=== PATIENT | male | born 1960 ===

== ENCOUNTER → 2020-02-06 14:00 | Outpatient (BNVA) | payer SELFPAY | PROVIDERS: PCP Internal Medicine; Visit Provider Internal Medicine Endocrinology, Diabetes & Metabolism | DX: E11.21 Type 2 diabetes mellitus with diabetic nephropathy (principal); E11.40 Type 2 diabetes mellitus with diabetic neuropathy, unspecified; Z79.4 Long term (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 of insulin; E66.01 Morbid (severe) obesity due to excess calories; E78.5 Hyperlipidemia, unspecified; E21.1 Secondary hyperparathyroidism, not elsewhere classified; I10 Essential (primary) hypertension | CPT/HCPCS: 82947; 99212 ==

== ENCOUNTER 2020-07-04 14:48 | Emergency (ER) | payer OTHER, SELFPAY ==
[2020-07-04] VITALS (7 sets, daily range): BP systolic 91–130; BP diastolic 42–58; PULSE 79–86; RESP 14–20; TEMP 36.3–37.6; O2SAT 94–98; BMI 41.8
--- NOTE | 2020-07-04 | ECG_ITS ---
Test Reason : WEAKNESS Blood Pressure : / mmHG Vent. Rate : 082 BPM Atrial Rate : 082 BPM P-R Int : 150 ms QRS Dur : 138 ms QT Int : 440 ms P-R-T Axes : 017 221 056 degrees QTc Int : 514 ms Atrial-sensed ventricular-paced rhythm Abnormal ECG No previous ECGs available Referred By: Dedrick Yañez Electronically Signed By:KUSH HARRIS MD
--- NOTE | ~2020-07-04 | XR_ITS ---
EXAMINATION: XR CHEST CLINICAL INFORMATION: Cough, shortness of breath COMPARISON: None TECHNIQUE: Frontal view of the chest was obtained. FINDINGS: The lungs are hypoinflated. No focal consolidation, pulmonary edema, or pleural effusion. The cardiac silhouette is mildly enlarged. There is a left chest wall cardiac pacer with leads projecting over the right atrium and right ventricle. XR/XR chest 1V IMPRESSION: Hypoinflation with no acute cardiopulmonary findings.
[2020-07-04 15:28] LABS: Glucose, Whole Blood 536 mg/dL (60-115)
--- NOTE | 2020-07-04 16:52 | ED.GENADULT ---
HPI - General Adult General Chief complaint: General Medical Stated complaint: WEAKNESS Time Seen by Provider: 07/04/20 16:52 Source: patient Mode of arrival: ambulatory Limitations: no limitations History of Present Illness HPI narrative: Patient's history of nonischemic cardiomyopathy with ejection fraction 15-20% atrial flutter CKD stage 3 ,morbid obesity, COPD nonalcoholic cirrhosis diabetes obstructive sleep apnea , hypertension was at [facility] for almost a month from 06/18 until patient left AMA. Comes here for weakness not feeling good increased shortness of breath no chest pain. Related Data Home Medications Medication Instructions Recorded Confirmed aspirin 81 mg chewable tablet 1 tab PO DAILY 02/06/20 07/04/20 gabapentin 600 mg tablet 600 mg PO TID 02/06/20 07/04/20 isosorbide mononitrate 30 mg 30 mg PO DAILY 02/06/20 02/06/20 tablet,extended release 24 hr losartan 50 mg tablet 50 mg PO DAILY 02/06/20 07/04/20 metoprolol succinate 25 mg 25 mg PO DAILY 02/06/20 07/04/20 tablet,extended release 24 hr omeprazole 20 mg capsule,delayed 20 mg PO DAILY 02/06/20 07/04/20 release torsemide 20 mg tablet 20 mg PO 02/06/20 02/06/20 digoxin 125 mcg PO DAILY 07/04/20 07/04/20 rivaroxaban [Xarelto] 20 mg PO BEDTIME 07/04/20 07/04/20 Previous Rx's Medication Instructions Recorded calcium carbonate 600 mg calcium 600 mg PO BID 30 Days #60 tab 02/06/20 (1,500 mg) tablet cholecalciferol (vitamin D3) 125 125 mcg PO DAILY 30 Days #30 cap 02/06/20 mcg (5,000 unit) capsule insulin regular hum U-500 conc 500 See Rx Instructions SUBCUT .Twice 02/06/20 unit/mL subcutaneous soln a day 30 Days #20 ml atorvastatin 80 mg tablet 80 mg PO BEDTIME 30 Days #30 tab 04/05/20 Allergies Allergy/AdvReac Type Severity Reaction Status Date / Time lisinopril AdvReac Unknown cough Verified 11/10/19 00:00 Review of Systems Review of Systems: Constitutional : No Weight loss, No Fever, No Chills ENT/Mouth : No sore throat, No Rhinorrhea Eyes: No Eye Pain, No Swelling Cardiovascular : No Chest Pain, no palpitations Respiratory : No Cough, No Sputum, no shortness of breath Gastrointestinal : no Nausea, No Vomiting, No Diarrhea, No abdominal Pain, no black stools Genitourinary : No Dysuria, No Urinary Frequency Musculoskeletal : No joint pain, No Myalgias, No Joint Swelling Skin : No Skin Lesions, No rash Neuro : + Weakness, No Numbness, No Dizziness, No Headache Psych : No Anxiety/Panic, No Depression Heme/Lymph: No Bruising, No Lymphadenopathy Endocrine : No Polyuria, No Polydipsia All other systems reviewed and are negative [facility] Past Medical History Medical History Chronic diastolic heart failure Cirrhosis Diabetes mellitus Diabetes type 2, uncontrolled Diabetic nephropathy associated with type 2 diabetes mellitus Diabetic neuropathy associated with type 2 diabetes mellitus Dyslipidemia HTN (hypertension) 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 due 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 Morbid obesity Nonischemic cardiomyopathy JANELL (obstructive sleep apnea) Substance abuse Surgical History S/P cardiac cath (~11/2019) Social History Social History Alcohol intake: never Smoking Status: Never smoker Smoked in Last 30 Days: No Use of substances other than those prescribed or required for medical reasons: No Advance Directives: No Advance Directives Information Provided: Yes Physical Exam Vital Signs: Vital Signs: Last Vital Signs Temp 98.6 F 07/04/20 21:54 Pulse 80 07/04/20 21:54 Resp 20 07/04/20 21:54 BP 114/51 L 07/04/20 22:00 Pulse Ox 95 07/04/20 21:54 Body Mass Index 41.8 Appearance: Alert. Oriented X3. No acute distress. Eyes: PERRLA, No Nystagmus, icterus+ ENT: Pharynx normal. Oral Mucosa moist Neck: Normal inspection. Neck supple. CVS: Normal heart rate and rhythm. Pulses normal. Respiratory: No respiratory distress. Equal air entry bilateral, no wheezing/rales/rhonchi Abdomen: Soft and nontender. Bowel sounds are present, no mass palpable, no CVA tenderness Skin: Skin warm and dry. Normal skin color. Normal skin turgor. Extremities: 2+ lower extremity edema. No calf tenderness, no hepatic flap Neuro: Oriented X 3. No motor deficit. No sensory deficit.No cerebellar signs , cranial nerves II-XII intact Medical Decision Making MDM Narrative Medical decision making narrative: Patient with multiple comorbid conditions took 135 units of Humalog prior to arrival blood sugar dropped to 50s started on dextrose drip. Patient unable take care of himself feel weak and lethargic. Otherwise patient has stable labs. No medical reason to admit at this time. Case discussed with case management plan to place him in rehab Medical Records Medical records reviewed: Yes I reviewed the patient's medical records. Medical records narrative: Medical records from [facility] were reviewed. Patient was admitted there on 06/18 until 07/02 for increased shortness of breath diagnosis CHF exacerbation treated with Lasix drip patient was on Xarelto had retroperitoneal hemorrhage received Kcentra FFP and 1 unit of PRBC patient also had the ablation of AV node on 06/28 with CONTACT ACID PLANT OPERATOR D placement at the day patient left AMA patient was receiving metoprolol succinate 100 mg daily Bumex 1 mg daily prednisone 20 mg daily and blood sugar was controlled with Lantus 30 units twice daily with sliding scale Lab Data Lab results reviewed: Yes I reviewed the patient's lab results. Result diagrams: 07/04/20 18:24 07/04/20 18:24 Labs: Lab Results 07/04/20 07/04/20 07/04/20 Range/Units 15:09 18:24 18:24 WBC 8.6 (4.8-10.8) X10*3/uL RBC 3.47 L (4.60-5.80) X10*6/uL Hgb 9.8 L (14.0-18.0) g/dl Hct 33.1 L (42-52) % MCV 95.4 (80-98) fL MCH 28.2 (27.0-33.0) pg MCHC 29.6 L (31.0-36.0) g/dl RDW 19.1 H (11.0-16.0) % Plt Count 123 L (160-400) X10*3/uL MPV 11.5 (9.4-12.4) fL Immature Gran % (Auto) 1.3 H (0.0-0.4) % Neut % (Auto) 75.4 H (45-73) % Lymph % (Auto) 9.5 L (20-40) % Shelby % (Auto) 11.7 H (2-11) % Eos % (Auto) 2.1 (0-4) % Baso % (Auto) 0.0 (0-2) % Lymph # (Auto) 0.8 L (1.2-4.9) X10*3/uL Shelby # (Auto) 1.0 (0.1-1.2) X10*3/uL Eos # (Auto) 0.2 (0.0-0.4) X10*3/uL Baso # (Auto) 0.0 (0.0-0.2) X10*3/uL Abs Immat Gran (auto) 0.11 H (0.00-0.03) X10*3/uL Absolute Neuts (auto) 6.5 (2.0-8.3) X10*3/uL Absolute Nucleated RBC 0.000 (0.0-0.012) X10*3/uL Nucleated RBC % (auto) 0.0 (0.0-0.2) /100WBC PT 14.6 H (10.8-13.0) SEC INR 1.2 H (0.9-1.1) APTT 27.5 (24.1-38.0) SEC VBG pH (7.32-7.43) VBG pCO2 mmHg VBG pO2 mmHg VBG HCO3 (22-26) mmol/L VBG O2 Saturation % VBG Base Excess mmol/L Sodium (135-145) mmol/L Potassium (3.3-5.1) mmol/L Chloride (96-108) mmol/L Carbon Dioxide (22-29) mmol/L Anion Gap (12-20) BUN (9-16) mg/dL Creatinine (0.5-1.4) mg/dL Estim Creat Clear Calc Estimated GFR POC Glucose 536 H* (60-115) mg/dL Random Glucose (60-115) mg/dL Calcium (8.4-10.2) mg/dL Total Bilirubin (0.0-1.0) mg/dL Direct Bilirubin (0.0-0.5) mg/dL AST (5-37) U/L ALT (0-40) U/L Alkaline Phosphatase (39-117) U/L Ammonia (13-55) umol/L Total Protein (6.5-8.0) g/dL Albumin (3.5-5.0) g/dL Lipase (8-78) U/L 07/04/20 07/04/20 07/04/20 Range/Units 18:24 18:24 18:31 WBC (4.8-10.8) X10*3/uL RBC (4.60-5.80) X10*6/uL Hgb (14.0-18.0) g/dl Hct (42-52) % MCV (80-98) fL MCH (27.0-33.0) pg MCHC (31.0-36.0) g/dl RDW (11.0-16.0) % Plt Count (160-400) X10*3/uL MPV (9.4-12.4) fL Immature Gran % (Auto) (0.0-0.4) % Neut % (Auto) (45-73) % Lymph % (Auto) (20-40) % Shelby % (Auto) (2-11) % Eos % (Auto) (0-4) % Baso % (Auto) (0-2) % Lymph # (Auto) (1.2-4.9) X10*3/uL Shelby # (Auto) (0.1-1.2) X10*3/uL Eos # (Auto) (0.0-0.4) X10*3/uL Baso # (Auto) (0.0-0.2) X10*3/uL Abs Immat Gran (auto) (0.00-0.03) X10*3/uL Absolute Neuts (auto) (2.0-8.3) X10*3/uL Absolute Nucleated RBC (0.0-0.012) X10*3/uL Nucleated RBC % (auto) (0.0-0.2) /100WBC PT (10.8-13.0) SEC INR (0.9-1.1) APTT (24.1-38.0) SEC VBG pH 7.46 H (7.32-7.43) VBG pCO2 50 mmHg VBG pO2 47 mmHg VBG HCO3 36 H (22-26) mmol/L VBG O2 Saturation 76.0 % VBG Base Excess 11.2 mmol/L Sodium 147 H (135-145) mmol/L Potassium 3.4 (3.3-5.1) mmol/L Chloride 105 (96-108) mmol/L Carbon Dioxide 33 H (22-29) mmol/L Anion Gap 12 (12-20) BUN 19 H (9-16) mg/dL Creatinine 1.06 (0.5-1.4) mg/dL Estim Creat Clear Calc 101.8 Estimated GFR > 60 POC Glucose (60-115) mg/dL Random Glucose 240 H (60-115) mg/dL Calcium 8.1 L (8.4-10.2) mg/dL Total Bilirubin 1.7 H (0.0-1.0) mg/dL Direct Bilirubin 0.8 H (0.0-0.5) mg/dL AST 25 (5-37) U/L ALT 30 (0-40) U/L Alkaline Phosphatase 115 (39-117) U/L Ammonia 36 (13-55) umol/L Total Protein 6.1 L (6.5-8.0) g/dL Albumin 3.1 L (3.5-5.0) g/dL Lipase 24 (8-78) U/L 07/04/20 07/04/20 07/04/20 Range/Units 19:05 19:12 21:52 WBC (4.8-10.8) X10*3/uL RBC (4.60-5.80) X10*6/uL Hgb (14.0-18.0) g/dl Hct (42-52) % MCV (80-98) fL MCH (27.0-33.0) pg MCHC (31.0-36.0) g/dl RDW (11.0-16.0) % Plt Count (160-400) X10*3/uL MPV (9.4-12.4) fL Immature Gran % (Auto) (0.0-0.4) % Neut % (Auto) (45-73) % Lymph % (Auto) (20-40) % Shelby % (Auto) (2-11) % Eos % (Auto) (0-4) % Baso % (Auto) (0-2) % Lymph # (Auto) (1.2-4.9) X10*3/uL Shelby # (Auto) (0.1-1.2) X10*3/uL Eos # (Auto) (0.0-0.4) X10*3/uL Baso # (Auto) (0.0-0.2) X10*3/uL Abs Immat Gran (auto) (0.00-0.03) X10*3/uL Absolute Neuts (auto) (2.0-8.3) X10*3/uL Absolute Nucleated RBC (0.0-0.012) X10*3/uL Nucleated RBC % (auto) (0.0-0.2) /100WBC PT (10.8-13.0) SEC INR (0.9-1.1) APTT (24.1-38.0) SEC VBG pH (7.32-7.43) VBG pCO2 mmHg VBG pO2 mmHg VBG HCO3 (22-26) mmol/L VBG O2 Saturation % VBG Base Excess mmol/L Sodium (135-145) mmol/L Potassium (3.3-5.1) mmol/L Chloride (96-108) mmol/L Carbon Dioxide (22-29) mmol/L Anion Gap (12-20) BUN (9-16) mg/dL Creatinine (0.5-1.4) mg/dL Estim Creat Clear Calc Estimated GFR POC Glucose 181 H 126 H 54 L* (60-115) mg/dL Random Glucose (60-115) mg/dL Calcium (8.4-10.2) mg/dL Total Bilirubin (0.0-1.0) mg/dL Direct Bilirubin (0.0-0.5) mg/dL AST (5-37) U/L ALT (0-40) U/L Alkaline Phosphatase (39-117) U/L Ammonia (13-55) umol/L Total Protein (6.5-8.0) g/dL Albumin (3.5-5.0) g/dL Lipase (8-78) U/L 07/04/20 Range/Units 23:57 WBC (4.8-10.8) X10*3/uL RBC (4.60-5.80) X10*6/uL Hgb (14.0-18.0) g/dl Hct (42-52) % MCV (80-98) fL MCH (27.0-33.0) pg MCHC (31.0-36.0) g/dl RDW (11.0-16.0) % Plt Count (160-400) X10*3/uL MPV (9.4-12.4) fL Immature Gran % (Auto) (0.0-0.4) % Neut % (Auto) (45-73) % Lymph % (Auto) (20-40) % Shelby % (Auto) (2-11) % Eos % (Auto) (0-4) % Baso % (Auto) (0-2) % Lymph # (Auto) (1.2-4.9) X10*3/uL Shelby # (Auto) (0.1-1.2) X10*3/uL Eos # (Auto) (0.0-0.4) X10*3/uL Baso # (Auto) (0.0-0.2) X10*3/uL Abs Immat Gran (auto) (0.00-0.03) X10*3/uL Absolute Neuts (auto) (2.0-8.3) X10*3/uL Absolute Nucleated RBC (0.0-0.012) X10*3/uL Nucleated RBC % (auto) (0.0-0.2) /100WBC PT (10.8-13.0) SEC INR (0.9-1.1) APTT (24.1-38.0) SEC VBG pH (7.32-7.43) VBG pCO2 mmHg VBG pO2 mmHg VBG HCO3 (22-26) mmol/L VBG O2 Saturation % VBG Base Excess mmol/L Sodium (135-145) mmol/L Potassium (3.3-5.1) mmol/L Chloride (96-108) mmol/L Carbon Dioxide (22-29) mmol/L Anion Gap (12-20) BUN (9-16) mg/dL Creatinine (0.5-1.4) mg/dL Estim Creat Clear Calc Estimated GFR POC Glucose 100 (60-115) mg/dL Random Glucose (60-115) mg/dL Calcium (8.4-10.2) mg/dL Total Bilirubin (0.0-1.0) mg/dL Direct Bilirubin (0.0-0.5) mg/dL AST (5-37) U/L ALT (0-40) U/L Alkaline Phosphatase (39-117) U/L Ammonia (13-55) umol/L Total Protein (6.5-8.0) g/dL Albumin (3.5-5.0) g/dL Lipase (8-78) U/L Discharge Plan Discharge Clinical Impression: Weakness Congestive heart failure (CHF) Qualifiers: Heart failure type: combined systolic and diastolic Heart failure chronicity: chronic Qualified Code(s): I50.42 - Chronic combined systolic (congestive) and diastolic (congestive) heart failure Diabetes type 2, uncontrolled Qualifiers: Glycemic state: with hyperglycemia Qualified Code(s): E11.65 - Type 2 diabetes mellitus with hyperglycemia Prescriptions: No Action atorvastatin 80 mg tablet 80 mg PO BEDTIME 30 Days Qty: 30 RF: 6 digoxin 125 mcg (0.125 mg) tablet 125 mcg PO DAILY RF: 0 Xarelto 20 mg tablet 20 mg PO BEDTIME RF: 0 gabapentin 600 mg tablet 600 mg PO TID RF: 0 isosorbide mononitrate 30 mg tablet extended release 24 hr 30 mg PO DAILY RF: 0 losartan 50 mg tablet 50 mg PO DAILY RF: 0 torsemide 20 mg tablet 20 mg PO RF: 0 aspirin 81 mg tablet,chewable 1 tab PO DAILY RF: 0 omeprazole 20 mg capsule,delayed release(DR/EC) 20 mg PO DAILY RF: 0 metoprolol succinate 25 mg tablet extended release 24 hr 25 mg PO DAILY RF: 0 calcium carbonate 600 mg calcium (1,500 mg) tablet 600 mg PO BID 30 Days Qty: 60 RF: 4 cholecalciferol (vitamin D3) 125 mcg (5,000 unit) capsule 125 mcg PO DAILY 30 Days Qty: 30 RF: 6 insulin regular hum U-500 conc 500 unit/mL solution See Rx Instructions subcut .Twice a day 30 Days Qty: 20 RF: 5
[2020-07-04 18:33] LABS: MANUAL DIFF FLAG NO
[2020-07-04 18:36] LABS: Eosinophils Absolute Auto 0.2 X10*3/uL (0.0-0.4); Eosinophils Percent Auto 2.1 % (0-4); Hematocrit 33.1 % (42-52); Hemoglobin 9.8 g/dl (14.0-18.0); Imm Gran Abs Auto 0.11 X10*3/uL (0.00-0.03); Imm Gran Pct Auto 1.3 % (0.0-0.4); Lymphocytes Absolute Auto 0.8 X10*3/uL (1.2-4.9); Lymphocytes Percent Auto 9.5 % (20-40); Mean Corpuscular HGB Conc 29.6 g/dl (31.0-36.0); Mean Corpuscular Hemoglobin 28.2 pg (27.0-33.0); Mean Corpuscular Volume 95.4 fL (80-98); Mean Platelet Volume 11.5 fL (9.4-12.4); Monocytes Percent Auto 11.7 % (2-11); Neutrophils Absolute Auto 6.5 X10*3/uL (2.0-8.3); Neutrophils Percent Auto 75.4 % (45-73); Platelet Count 123 X10*3/uL (160-400); Red Blood Count 3.47 X10*6/uL (4.60-5.80); Red Cell Distribution Width 19.1 % (11.0-16.0); White Blood Count 8.6 X10*3/uL (4.8-10.8)
[2020-07-04 18:39] LABS: VBG Base Excess 11.2 mmol/L; VBG HCO3 36 mmol/L (22-26); VBG pCO2 50 mmHg; VBG pH 7.46 (7.32-7.43); VBG pO2 47 mmHg
[2020-07-04 18:42] LABS: Venous Blood Gas Refer to POC result
[2020-07-04 18:43] LABS: INTERNATIONAL NORM RATIO 1.2 (0.9-1.1); Prothrombin Time 14.6 SEC (10.8-13.0)
[2020-07-04 18:45] LABS: Partial Thromboplastin Time 27.5 SEC (24.1-38.0)
[2020-07-04 18:52] LABS: Ammonia 36 umol/L (13-55)
[2020-07-04 19:03] LABS: Alanine Aminotransferase 30 U/L (0-40); Albumin Level 3.1 g/dL (3.5-5.0); Alkaline Phosphatase 115 U/L (39-117); Anion Gap 12 (12-20); Aspartate Amino Transferase 25 U/L (5-37); Bilirubin Direct 0.8 mg/dL (0.0-0.5); Bilirubin Total 1.7 mg/dL (0.0-1.0); Blood Urea Nitrogen 19 mg/dL (9-16); Calcium 8.1 mg/dL (8.4-10.2); Carbon Dioxide 33 mmol/L (22-29); Chloride 105 mmol/L (96-108); Creatinine Clr Calc Pharmacy 101.8; Estimated Glomerular Filt Rate > 60; Glucose Random 240 mg/dL (60-115); Lipase 24 U/L (8-78); Potassium 3.4 mmol/L (3.3-5.1); Sodium 147 mmol/L (135-145); Total Protein 6.1 g/dL (6.5-8.0)
[2020-07-04 19:08] LABS: Glucose, Whole Blood 181 mg/dL (60-115)
[2020-07-04 19:16] LABS: Glucose, Whole Blood 126 mg/dL (60-115)
[2020-07-04] MEDS: 0.9 % Sodium Chloride 1,000 ML 999 ML IVCONT (20:33)
[2020-07-04 21:55] LABS: Glucose, Whole Blood 54 mg/dL (60-115)
--- NOTE | 2020-07-04 22:02 | PC.NURSE ---
PT BGL 54, PT GIVEN ORANGE JUICE WITH SUGAR ADDED, SILVINA KEKE, AND AILEEN CRACKERS
[2020-07-04] MEDS: Dextrose 5 % and 0.45 % NaCl 1,000 ML 100 ML IVCONT (22:14)
[2020-07-04] MEDS: oxyCODONE HCl Immed Release 5 MG TABLET 10 MG PO (22:15)
--- NOTE | 2020-07-04 22:22 | MHC.CM.ED ---
Addendum entered by Sejal Gilliland 07/04/20 22:53: Referrals to follow broadcasted in allscripts pending PT recommendations. Original Note: CM met with pt at request of Dr. Yañez, who stated pt was at [facility] for 3 weeks and left AMA. CM met with pt. Pt was hospitalized at [facility] from 06/18-07/02. Multiple medical problems including CHF, COPD exacerbation, retroperitoneal hemorrhage which required transfusion and A-flutter with RVR with ablation. Pt had PT assessment and inpatient STR was recommended. Pt states he was treated very poorly and was disrespected by several staff. Pt has a HX of past substance use disorder and lives in a sober house. Pt left AMA. Pt is weak and sl SOB with cough. Pt is medically cleared. Pt desires STR. CM spoke with Wire Bound Box Machine Helper Flora Acevedo regarding how to proceed. Per Flora, PT evaluation will be ordered secondary to weakness. If recommended, will refer to STR. MD aware. Ordered PT evaluation. Pt agreeable. Pt is aware he made a bad decision and should have gone to rehab from [facility]. Referrals broadcasted. CM to follow for d/c needs.
--- NOTE | 2020-07-04 23:59 | PC.NURSE ---
REPORT TAKEN FROM ASTER RN, PT RESTING IN BED A&0x4, SKIN PWD RESPIRATIONS EVEN UNLABORED. POC 100. D5 INFUSION CONTINUES, AWARE. WILL RECHECK POC IN 30MINUTES. 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 WILL CONTINUE TO MONITOR. PT CONSULT ORDERED FOR AM.
[2020-07-05] VITALS (7 sets, daily range): BP systolic 94–148; BP diastolic 44–78; PULSE 60–90; RESP 16–20; TEMP 36.6–37.2; O2SAT 96–97
[2020-07-05 00:01] LABS: Glucose, Whole Blood 100 mg/dL (60-115)
[2020-07-05 01:54] LABS: Glucose, Whole Blood 68 mg/dL (60-115)
[2020-07-05 03:03] LABS: Glucose, Whole Blood 55 mg/dL (60-115)
[2020-07-05] MEDS: Dextrose 5 % and 0.45 % NaCl 1,000 ML 100 ML IVCONT (05:05)
--- NOTE | 2020-07-05 05:08 | PC.NURSE ---
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 Patients most recent POC was 68 and patient has been receiving D5 1/2NS to help correct his POC's as well as having received some snacks as well. Per report this patient has been awaiting PT and will see them in the morning due to the fact that the patient has stated to staff that he cannot walk . Approximately 15 minutes ago at 0455, this RN went in to observe the patient and check vital signs/hang fluids/and assess pain status- upon arrival to the room the patient was observed ambulating independently within the room, steady gait with no assistance.
[2020-07-05 05:18] LABS: Glucose, Whole Blood 59 mg/dL (60-115)
--- NOTE | 2020-07-05 05:33 | PC.NURSE ---
Pt POC 59, orange juice, gingerale and crackers given
[2020-07-05 06:19] LABS: Glucose, Whole Blood 78 mg/dL (60-115)
--- NOTE | 2020-07-05 06:36 | PC.NURSE ---
Patients POC rechecked and it was 78- fluids still running, darryle at bedside
[2020-07-05] MEDS: oxyCODONE HCl Immed Release 5 MG TABLET 10 MG PO (07:27)
[2020-07-05] MEDS: Omeprazole 20 MG CAPSULE.DR PO (07:27)
[2020-07-05 08:50] LABS: Glucose, Whole Blood 90 mg/dL (60-115)
--- NOTE | 2020-07-05 08:52 | MHC.CM.ED ---
Patient remains in ER. Clinical updates sent to all facilities still following patient. Continue to monitor for d/c needs.
[2020-07-05] MEDS: Cholecalciferol (Vitamin D3) 25 MCG TABLET 125 MCG PO (09:18)
[2020-07-05] MEDS: Aspirin 81 MG TAB.CHEW PO (09:18)
[2020-07-05] MEDS: Gabapentin 600 MG TABLET PO ×2 (09:19→15:17)
[2020-07-05] MEDS: Losartan Potassium 50 MG TABLET PO (09:19)
[2020-07-05] MEDS: Bumetanide 1 MG TABLET PO (09:19)
[2020-07-05] MEDS: Metoprolol Succinate ER 100 MG TAB.ER.24H PO (09:19)
--- NOTE | 2020-07-05 11:33 | PC.NURSE ---
REC'D REPORT FROM VICTOR HUGO ESTRADA, INTRODUCED SELF TO PT. PT SLEEPING UPON ENTRY, ORIENTED X3, RESP EVEN, LABOURED AT BASELINE. ATE 100% OF BREAKFAST. POC 165. C/O ONLY OF CHRONIC BILAT FOOT PAIN. AWARE OF PLAN FOR CARE.
[2020-07-05 11:34] LABS: Glucose, Whole Blood 165 mg/dL (60-115)
--- NOTE | 2020-07-05 12:07 | MHC.CM.ED ---
Multiple facilities are following patient. Discussed facility options with patient. [facility]io[facility]. [facility]ica is in the process of obtaining insurance auth. Continue to monitor for d/c needs.
[2020-07-05] MEDS: Insulin Lispro 100 UNIT/ML 3 ML VIAL SUBCUT ×2 (13:11→17:11)
[2020-07-05 13:19] LABS: Glucose, Whole Blood 168 mg/dL (60-115)
[2020-07-05 13:50] LABS: Amphetamine Screen Urine Not Detected (Not Detect); Barbiturates, Urine Not Detected (Not Detect); Benzodiazepines Screen Urine Not Detected (Not Detect); Cannabinoid Screen Urine Not Detected (Not Detect); Cocaine Screen Urine Not Detected (Not Detect); Opiate Screen Urine Not Detected (Not Detect); Phencyclidine Screen Urine Not Detected (Not Detect)
--- NOTE | 2020-07-05 16:01 | MHC.CM.ED ---
Insurance auth has been obtained by [facility]. [facility] BLS booked. Med nec with chart. Patient, Cori ESTRADA and Jessie CABALLERO aware. Continue to monitor for d/c needs.
[2020-07-05 17:07] LABS: Glucose, Whole Blood 287 mg/dL (60-115)
== END 2020-07-05 18:17 | disposition skilled nursing facility (03) ==
PROVIDERS: Physician Assistant Medical; Emergency Provider Internal Medicine; PCP Internal Medicine
DX: E11.22 Type 2 diabetes mellitus with diabetic chronic kidney disease (principal); E11.65 Type 2 diabetes mellitus with hyperglycemia; I13.0 Hypertensive heart and chronic kidney disease with heart failure and stage 1 through stage 4 chronic kidney disease, or unspecified chronic kidney disease; N18.30 Chronic kidney disease, stage 3 unspecified; I50.42 Chronic combined systolic (congestive) and diastolic (congestive) heart failure; K74.60 Unspecified cirrhosis of liver; F19.10 Other psychoactive substance abuse, uncomplicated; E78.5 Hyperlipidemia, unspecified; Z79.4 Long term (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 of insulin; Z79.02 Long term (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 of antithrombotics/antiplatelets
CPT/HCPCS: 36415; 71045; 80048; 80076; 80307; 82140; 82947; 83690; 85025; 85610; 85730; 93005; 96361; 96365; 96366; 97162; 99285

== ENCOUNTER → 2020-08-10 09:36 | Outpatient (BNVA) | payer OTHER, SELFPAY | PROVIDERS: PCP Internal Medicine; Referring Provider Internal Medicine; Visit Provider Internal Medicine Endocrinology, Diabetes & Metabolism | DX: E11.65 Type 2 diabetes mellitus with hyperglycemia (principal); E11.21 Type 2 diabetes mellitus with diabetic nephropathy; E11.40 Type 2 diabetes mellitus with diabetic neuropathy, unspecified; E66.01 Morbid (severe) obesity due to excess calories; E78.5 Hyperlipidemia, unspecified; I10 Essential (primary) hypertension; E21.1 Secondary hyperparathyroidism, not elsewhere classified | CPT/HCPCS: 82947; 99212 ==

== ENCOUNTER → 2020-09-03 10:43 | Outpatient (BNVA) | payer OTHER, SELFPAY | PROVIDERS: PCP Internal Medicine; Referring Provider Internal Medicine; Visit Provider Internal Medicine Cardiovascular Disease ==

== ENCOUNTER 2020-09-03 11:50 | Inpatient (IN) | payer OTHER, SELFPAY ==
--- NOTE | ~2020-09-03 | CT_ITS ---
EXAMINATION: CT ANGIOGRAM OF THE CHEST WITH AND WITHOUT CONTRAST (CT PULMONARY ANGIOGRAM FOR PE) CLINICAL INFORMATION: Reason for Exam hypoxia COMPARISON: None TECHNIQUE: Prior to contrast administration, noncontrast localization images were obtained. Subsequently, multidetector volumetric imaging was performed from the thoracic inlet to below the diaphragms following the administration of 75 mL Omnipaque 350 intravenous contrast. No contrast reaction reported Sagittal, coronal, and MIP oblique sagittal reformatted images were obtained on the CT workstation, uploaded to PACS, and reviewed. This CT examination was performed using dose optimization techniques as appropriate, variously including the following: *Automated exposure control *Adjustment of mA and/or kV according to patient size (this includes techniques or standardized protocols for targeted exams where dose is matched to indication/reason for exam; i.e. extremities or head) *Use of iterative reconstruction technique Total exam dose-length product 530.85 mGy-cm FINDINGS: QUALITY OF STUDY/CONTRAST BOLUS: Satisfactory. PULMONARY ARTERIES: No central or segmental pulmonary emboli. THORACIC AORTA: No aneurysm or dissection. Atherosclerotic disease of the aorta including coronary arterial calcifications are present. Triple lead AICD device is seen. LUNG: Multilobar subtle patchy groundglass airspace disease is present bilaterally, may represent subtle interstitial edema, inflammatory or infectious process. PLEURA: No pleural effusion or pneumothorax. MEDIASTINUM: Normal heart size. No pericardial effusion. No hilar or mediastinal lymphadenopathy. No evidence of septal bowing or right heart strain. CHEST WALL/AXILLA: No axillary or internal mammary lymphadenopathy. OSSEOUS STRUCTURES: No acute or suspicious osseous abnormality. UPPER ABDOMEN: Unremarkable. No reflux of contrast into the hepatic veins to suggest elevated right heart pressures. CT/CT angio chest PE protocol IMPRESSION: 1. No CT evidence of pulmonary embolism is present. 2. Subtle multilobar patchy groundglass airspace disease is present bilaterally, may represent subtle edema versus infectious, inflammatory process. VTE: Negative.
--- NOTE | ~2020-09-03 | XR_ITS ---
EXAMINATION: XR CHEST CLINICAL INFORMATION: Chest pain/SOB COMPARISON: Chest 07/04/2020 TECHNIQUE: 1 view of the chest was obtained. FINDINGS: The lungs are expanded and clear of acute pneumonic process heart size and pulmonary vascularity are within normal limits. There are pacer electrodes in right atrium and right ventricle. No gross bony abnormality seen. XR/XR chest 1V IMPRESSION: Unremarkable chest exam. No change from 06/26/2020
[2020-09-03 11:58] VITALS: BP 173/76; PULSE 102; RESP 20; TEMP 36.7; O2SAT 91; BMI 46.0
--- NOTE | 2020-09-03 12:03 | ECG_ITS ---
Test Reason : CHEST PAIN Blood Pressure : / mmHG Vent. Rate : 102 BPM Atrial Rate : 102 BPM P-R Int : 134 ms QRS Dur : 142 ms QT Int : 426 ms P-R-T Axes : 048 224 047 degrees QTc Int : 555 ms Atrial-sensed ventricular-paced rhythm Abnormal ECG When compared with ECG of 04-JUL-2020 15:16, Vent. rate has increased BY 20 BPM Referred By: Generic ED Physician Electronically Signed By:KUSH HARRIS MD
--- NOTE | 2020-09-03 12:14 | P.CONCA_ITS ---
History of Present Illness History of Present Illness Date of Service: 09/03/20 Chief complaint: edema sob chest pain Narrative: 60-year-old gentleman who has background Joann nonischemic cardiomyopathy in the setting of cocaine use. He had significant premature ventricle complexes in the past for which she was on amiodarone. His LVEF improved after taking care of the PVCs. He was doing fine until recently when he developed shortness of breath and atrial flutter. He was in [facility] at that time and this is around May 2020. he was significantly volume overloaded and was diuresed. After this he was transferred to [facility] where he was in the CCU. Echocardiography at [facility] done May 2020 showed EF of 15-20% with severe global hypokinesis. Mildly dilated left atrium. It appears he was discharged home on torsemide 20 mg twice a day and Toprol XL 200 mg daily. He was also started on Coumadin for atrial flutter. There also some note about serosal liver any was referred to gastroenterology. He is presenting after May to us and has not followed up after that admission. In the interim he also had a pacemaker placed at [facility] which I do not have records of. He has significant shortness of breath and volume overload. Lower extremity edema as well as abdominal distension. He is also complaining of atypical left-sided chest pains. He was taking torsemide as needed. He was taking Bumex daily but despite using the apple packing header history is very limited. He is saying he is quite short of breath and seems significantly volume overloaded with right more than left heart failure. [facility] Past Medical History Medical History Chronic diastolic heart failure Cirrhosis Diabetes mellitus Diabetes type 2, uncontrolled Diabetic nephropathy associated with type 2 diabetes mellitus Diabetic neuropathy associated with type 2 diabetes mellitus Dyslipidemia HTN (hypertension) 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 due to vitamin D deficiency senior living (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 of insulin Morbid obesity Nonischemic cardiomyopathy JANELL (obstructive sleep apnea) Substance abuse Surgical History Surgical History S/P cardiac cath (~11/2019) Social History Social History (Updated 09/03/20 @ 11:18 by MAMTA Guevara) Alcohol intake: never Patient Tobacco Use Status: Former Tobacco user Quit Date: 2002 Years Smoked: 40 Advance Directives Date on File: 07/05/20 Meds Allergies Allergy/AdvReac Type Severity Reaction Status Date / Time lisinopril AdvReac Intermediate cough Verified 09/03/20 11:58 Home Medications Medication Instructions Recorded Confirmed Last Taken Type aspirin 81 mg chewable tablet 1 tab PO DAILY 02/06/20 08/10/20 Unknown History gabapentin 600 mg tablet 600 mg PO TID 02/06/20 08/10/20 Unknown History isosorbide mononitrate 30 mg 30 mg PO DAILY 02/06/20 08/10/20 Unknown History tablet,extended release 24 hr alcohol swabs 1 pad TOPICAL TID 08/10/20 08/10/20 Unknown History losartan 25 mg tablet 50 mg PO DAILY tab 08/10/20 08/10/20 Unknown History albuterol sulfate 90 mcg/actuation 2 puff INHALATION Q4-6H PRN 08/31/20 Unknown History aerosol inhaler bumetanide 1 mg tablet 1 mg PO DAILY 08/31/20 Unknown History fluticasone furoate 100 1 inh INHALATION DAILY 08/31/20 Unknown History mcg-vilanterol 25 mcg/dose inhalation powder metoprolol succinate 100 mg 100 mg PO DAILY 08/31/20 Unknown History tablet,extended release 24 hr tiotropium bromide 18 mcg capsule 1 cap INHALATION DAILY 08/31/20 Unknown History with inhalation device torsemide 20 mg tablet 20 mg PO DAILY tab 09/03/20 Unknown History Physical Exam 2 Vital Signs: Vital Signs: Last Vital Signs Temp 98.0 F 09/03/20 11:58 Pulse 102 H 09/03/20 11:58 Resp 20 09/03/20 11:58 BP 173/76 H 09/03/20 11:58 Pulse Ox 91 L 09/03/20 11:58 Body Mass Index 46.0 GENERAL APPEARANCE: Short of breath, abdominal distension. NECK: no carotid bruit, + jugular venous distention. SKIN: no suspicious lesions, warm and dry. HEART: no murmurs, regular rate and rhythm. tachycardic LUNGS: clear to auscultation bilaterally. ABDOMEN: soft, distended, tense EXTREMITIES: 2+ edema. PERIPHERAL PULSES: equal. NEUROLOGIC: No gross deficits, AAO X 3 Assessment and Plan (1) Congestive heart failure (CHF): Qualifiers: Heart failure type: other Qualified Code(s): I50.9 - Heart failure, unspecified Status: Acute 60-year-old gentleman presenting for shortness of breath and congestive heart failure. He has significant volume overloaded with right more than left heart failure right now. We are sending him to emergency department to be admitted. Stop the Bumex and torsemide 20. give him 80 mg IV Lasix and start him on Lasix drip 10 milligram/hour. Monitor electrolytes closely. Decrease his Toprol-XL dose to 50 mg once a day. We will get records from [facility] about his pacemaker placement. I do not know the exact reason for that. He had significantly dropped ejection fraction when he was admitted at [facility] but he had atrial flutter at that time and I do not know whether that was a tachycardia induced cardiomyopathy or not. In any case right now he has sinus tachycardia on EKG. We will follow along with you. Thank you for allowing me to participate in the care of your patient. Please feel free to contact me if you have any questions. Procedures Date of Service Date of Service: 09/03/20
[2020-09-03 13:57] LABS: MANUAL DIFF FLAG NO
[2020-09-03 14:01] LABS: Basophils Percent Auto 0.4 % (0-2); Eosinophils Absolute Auto 0.2 X10*3/uL (0.0-0.4); Eosinophils Percent Auto 2.8 % (0-4); Hematocrit 42.2 % (42-52); Hemoglobin 12.8 g/dl (14.0-18.0); Imm Gran Abs Auto 0.03 X10*3/uL (0.00-0.03); Imm Gran Pct Auto 0.4 % (0.0-0.4); Lymphocytes Percent Auto 12.5 % (20-40); Mean Corpuscular HGB Conc 30.3 g/dl (31.0-36.0); Mean Corpuscular Hemoglobin 27.5 pg (27.0-33.0); Mean Corpuscular Volume 90.6 fL (80-98); Monocytes Absolute Auto 0.8 X10*3/uL (0.1-1.2); Monocytes Percent Auto 9.9 % (2-11); Neutrophils Absolute Auto 5.9 X10*3/uL (2.0-8.3); Platelet Count 207 X10*3/uL (160-400); Red Blood Count 4.66 X10*6/uL (4.60-5.80); Red Cell Distribution Width 16.3 % (11.0-16.0); White Blood Count 7.9 X10*3/uL (4.8-10.8)
[2020-09-03 14:19] LABS: Anion Gap 11 (12-20); Blood Urea Nitrogen 24 mg/dL (9-16); Calcium 8.3 mg/dL (8.4-10.2); Carbon Dioxide 28 mmol/L (22-29); Chloride 104 mmol/L (96-108); Creatinine Clr Calc Pharmacy 98.1; Estimated Glomerular Filt Rate > 60; Glucose Random 303 mg/dL (60-115); Sodium 139 mmol/L (135-145)
[2020-09-03 14:26] LABS: B Type Natriuretic Peptide 433 pg/mL (<100); Troponin-I High Sensitivity 27.1 ng/L (<3.5-35.0)
[2020-09-03 16:00] VITALS: BP 123/72; PULSE 94; RESP 18; TEMP 36.9; O2SAT 98
--- NOTE | 2020-09-03 16:17 | ED.CHESTPAIN ---
HPI - Chest Pain General Chief Complaint: Chest Pain Stated Complaint: edema sob chest pain Time Seen by Provider: 09/03/20 16:17 Source: patient Mode of arrival: ambulatory Limitations: no limitations History of Present Illness HPI narrative: patient is 60 years old male with history of diabetes, sleep apnea,nonischemic cardiomyopathy in the setting of cocaine use recently developed shortness of breath with atrial flutter in 05/2020 echocardiogram showed ejection fraction of 15-20% severe global hypokinesis on torsemide 20 mg twice daily and Toprol-XL 200 mg daily and Coumadin for atrial flutter also has pacemaker placed complaining of increased shortness of breath with increased leg edema and abdominal distention feels very short of breath even on mild exertion. Patient was seen by relief charge nurse today and advised to go to the ER for admission patient also complaining of pain in left chest around the site where the pacemaker was placed for last 2 days Related Data Home Medications Medication Instructions Recorded Confirmed aspirin 81 mg chewable tablet 1 tab PO DAILY 02/06/20 08/10/20 gabapentin 600 mg tablet 600 mg PO TID 02/06/20 08/10/20 isosorbide mononitrate 30 mg 30 mg PO DAILY 02/06/20 08/10/20 tablet,extended release 24 hr alcohol swabs 1 pad TOPICAL TID 08/10/20 08/10/20 losartan 25 mg tablet 50 mg PO DAILY tab 08/10/20 08/10/20 albuterol sulfate 90 mcg/actuation 2 puff INHALATION Q4-6H PRN 08/31/20 aerosol inhaler bumetanide 1 mg tablet 1 mg PO DAILY 08/31/20 fluticasone furoate 100 1 inh INHALATION DAILY 08/31/20 mcg-vilanterol 25 mcg/dose inhalation powder metoprolol succinate 100 mg 100 mg PO DAILY 08/31/20 tablet,extended release 24 hr tiotropium bromide 18 mcg capsule 1 cap INHALATION DAILY 08/31/20 with inhalation device torsemide 20 mg tablet 20 mg PO DAILY tab 09/03/20 Previous Rx's Medication Instructions Recorded calcium carbonate 600 mg calcium 600 mg PO BID 30 Days #60 tab 02/06/20 (1,500 mg) tablet BD Insulin Syringe U-500 1/2 mL 31 #100 ea NS 08/10/20 gauge x 15/64 atorvastatin 80 mg tablet 80 mg PO BEDTIME 30 Days #30 tab 08/10/20 cholecalciferol (vitamin D3) 125 125 mcg PO DAILY 30 Days #30 cap 08/10/20 mcg (5,000 unit) capsule insulin regular hum U-500 conc 500 See Rx Instructions SUBCUT .Twice 08/10/20 unit/mL subcutaneous soln a day 30 Days #20 ml Allergies Allergy/AdvReac Type Severity Reaction Status Date / Time lisinopril AdvReac Intermediate cough Verified 09/03/20 11:58 Review of Systems Review of Systems: Constitutional : No Weight loss, No Fever, No Chills ENT/Mouth : No sore throat, No Rhinorrhea Eyes: No Eye Pain, No Swelling Cardiovascular : + Chest Pain, no palpitations Respiratory : No Cough, No Sputum, ++ shortness of breath Gastrointestinal : no Nausea, No Vomiting, No Diarrhea, No abdominal Pain, no black stools Genitourinary : No Dysuria, No Urinary Frequency Musculoskeletal : No joint pain, No Myalgias, No Joint Swelling Skin : No Skin Lesions, No rash Neuro : No Weakness, No Numbness, No Dizziness, No Headache Psych : No Anxiety/Panic, No Depression Heme/Lymph: No Bruising, No Lymphadenopathy Endocrine : No Polyuria, No Polydipsia All other systems reviewed and are negative [facility] Past Medical History Medical History Chronic diastolic heart failure Cirrhosis Diabetes mellitus Diabetes type 2, uncontrolled Diabetic nephropathy associated with type 2 diabetes mellitus Diabetic neuropathy associated with type 2 diabetes mellitus Dyslipidemia HTN (hypertension) 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 due to vitamin D deficiency penit[facility]iary (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 of insulin Morbid obesity Nonischemic cardiomyopathy JANELL (obstructive sleep apnea) Substance abuse Surgical History S/P cardiac cath (~11/2019) Social History Social History Alcohol intake: never Patient Tobacco Use Status: Former Tobacco user Quit Date: 2002 Years Smoked: 40 Advance Directives: Yes Advance Directives on File: Yes Advance Directives Date on File: 07/05/20 Physical Exam Vital Signs: Vital Signs: Last Vital Signs Temp 98.2 F 09/03/20 17:23 Pulse 100 09/03/20 17:23 Resp 18 09/03/20 17:23 BP 120/74 09/03/20 17:23 Pulse Ox 92 09/03/20 17:23 Body Mass Index 46.0 Appearance: Alert. Oriented X3. No acute distress. obese Eyes: PERRLA, No Nystagmus ENT: Pharynx normal. Oral Mucosa moist Neck: Normal inspection. Neck supple. CVS: Normal heart rate and rhythm. Pulses normal. Respiratory: No respiratory distress. decreased air entry bilateral, Equal air entry bilateral, no wheezing/rales/rhonchi Abdomen: Soft and nontender. Bowel sounds are present, no mass palpable, no CVA tenderness, distended abdomen Skin: Skin warm and dry. Normal skin color. Normal skin turgor. Extremities: 2+ lower extremity edema. No calf tenderness Neuro: Oriented X 3. No motor deficit. No sensory deficit.No cerebellar signs , cranial nerves II-XII intact MDM - Chest Pain MDM Narrative Medical decision making narrative: patient with diastolic heart failure with fluid overload seen by relief charge nurse no significant change in delta troponin. Will admit patient for IV Lasix as advised by relief charge nurse Medical Records Data Attestation: I reviewed the patient's medical records. Lab Data Attestation: I reviewed the patient's lab results. Result diagrams: 09/03/20 13:44 09/03/20 13:44 Labs: Lab Results 09/03/20 09/03/20 09/03/20 Range/Units 13:44 13:44 13:44 WBC 7.9 (4.8-10.8) X10*3/uL RBC 4.66 D (4.60-5.80) X10*6/uL Hgb 12.8 L D (14.0-18.0) g/dl Hct 42.2 D (42-52) % MCV 90.6 (80-98) fL MCH 27.5 (27.0-33.0) pg MCHC 30.3 L (31.0-36.0) g/dl RDW 16.3 H (11.0-16.0) % Plt Count 207 D (160-400) X10*3/uL MPV 10.0 (9.4-12.4) fL Immature Gran % (Auto) 0.4 (0.0-0.4) % Neut % (Auto) 74.0 H (45-73) % Lymph % (Auto) 12.5 L (20-40) % [place] % (Auto) 9.9 (2-11) % Eos % (Auto) 2.8 (0-4) % Baso % (Auto) 0.4 (0-2) % Lymph # (Auto) 1.0 L (1.2-4.9) X10*3/uL [place] # (Auto) 0.8 (0.1-1.2) X10*3/uL Eos # (Auto) 0.2 (0.0-0.4) X10*3/uL Baso # (Auto) 0.0 (0.0-0.2) X10*3/uL Abs Immat Gran (auto) 0.03 (0.00-0.03) X10*3/uL Absolute Neuts (auto) 5.9 (2.0-8.3) X10*3/uL Absolute Nucleated RBC 0.000 (0.0-0.012) X10*3/uL Nucleated RBC % (auto) 0.0 (0.0-0.2) /100WBC PT (10.8-13.0) SEC INR (0.9-1.1) APTT (24.1-38.0) SEC Sodium 139 (135-145) mmol/L Potassium 4.0 (3.3-5.1) mmol/L Chloride 104 (96-108) mmol/L Carbon Dioxide 28 (22-29) mmol/L Anion Gap 11 L (12-20) BUN 24 H (9-16) mg/dL Creatinine 1.16 (0.5-1.4) mg/dL Estim Creat Clear Calc 98.1 Estimated GFR > 60 Random Glucose 303 H (60-115) mg/dL Calcium 8.3 L (8.4-10.2) mg/dL Troponin I High Sens 27.1 (<3.5-35.0) ng/L B-Natriuretic Peptide 433 H (<100) pg/mL COVID-19 (MARCIAL) (Negative) COVID-19 Clin Com 09/03/20 09/03/20 09/03/20 Range/Units 17:03 17:03 17:03 WBC (4.8-10.8) X10*3/uL RBC (4.60-5.80) X10*6/uL Hgb (14.0-18.0) g/dl Hct (42-52) % MCV (80-98) fL MCH (27.0-33.0) pg MCHC (31.0-36.0) g/dl RDW (11.0-16.0) % Plt Count (160-400) X10*3/uL MPV (9.4-12.4) fL Immature Gran % (Auto) (0.0-0.4) % Neut % (Auto) (45-73) % Lymph % (Auto) (20-40) % [place]kinson % (Auto) (2-11) % Eos % (Auto) (0-4) % Baso % (Auto) (0-2) % Lymph # (Auto) (1.2-4.9) X10*3/uL [place]kinson # (Auto) (0.1-1.2) X10*3/uL Eos # (Auto) (0.0-0.4) X10*3/uL Baso # (Auto) (0.0-0.2) X10*3/uL Abs Immat Gran (auto) (0.00-0.03) X10*3/uL Absolute Neuts (auto) (2.0-8.3) X10*3/uL Absolute Nucleated RBC (0.0-0.012) X10*3/uL Nucleated RBC % (auto) (0.0-0.2) /100WBC PT 14.8 H (10.8-13.0) SEC INR 1.2 H (0.9-1.1) APTT 32.5 (24.1-38.0) SEC Sodium (135-145) mmol/L Potassium (3.3-5.1) mmol/L Chloride (96-108) mmol/L Carbon Dioxide (22-29) mmol/L Anion Gap (12-20) BUN (9-16) mg/dL Creatinine (0.5-1.4) mg/dL Estim Creat Clear Calc Estimated GFR Random Glucose (60-115) mg/dL Calcium (8.4-10.2) mg/dL Troponin I High Sens 24.0 (<3.5-35.0) ng/L B-Natriuretic Peptide (<100) pg/mL COVID-19 (MARCIAL) Negative (Negative) COVID-19 Clin Com See Note ECG Data ECG #1: Attestation: I personally reviewed and interpreted this ECG as follows: Interpretation: ventricle paced rhythm rate 102 beats per minute no acute ST T wave changes no acute ischemia Discharge Plan Discharge Clinical Impression: Congestive heart failure (CHF) Qualifiers: Heart failure type: combined systolic and diastolic Heart failure chronicity: acute on chronic Qualified Code(s): I50.43 - Acute on chronic combined systolic (congestive) and diastolic (congestive) heart failure Chest pain Qualifiers: Chest pain type: precordial pain Qualified Code(s): R07.2 - Precordial pain Patient Disposition: Admitted As Inpatient
[2020-09-03] MEDS: Morphine Sulfate 4 MG/ML CARTRIDGE IVPUSH (17:11)
[2020-09-03] MEDS: Furosemide 100 MG/10 ML VIAL 80 MG IVPUSH (17:12)
[2020-09-03] MEDS: ondansetron HCL 4 MG/2 ML VIAL IVPUSH (17:12)
[2020-09-03] MEDS: Furosemide 200 MG in 0.9 % Sodium Chloride 80 ML IVCONT (17:12)
[2020-09-03 17:16] LABS: INTERNATIONAL NORM RATIO 1.2 (0.9-1.1); Prothrombin Time 14.8 SEC (10.8-13.0)
[2020-09-03 17:19] LABS: Partial Thromboplastin Time 32.5 SEC (24.1-38.0)
[2020-09-03 17:23] VITALS: BP 120/74; PULSE 100; RESP 18; TEMP 36.8; O2SAT 92
[2020-09-03 17:27] LABS: COVID-19 Test Negative (Negative)
--- NOTE | 2020-09-03 22:49 | PHA.MEDREC ---
Pharmacy Consult ? Medication Reconciliation Pharmacy has completed the medication reconciliation. Pt unclear about u-500 dosing. ?150 units in the morning? Barbara Hernandez
--- NOTE | 2020-09-03 23:03 | P.HPHOSP_ITS ---
History of Present Illness Date of Service: 09/03/20 Chief Complaint: Dyspnea, weight gain this is a 60-year-old male with past medical history of sleep apnea, diabetes, 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 Patient also reports leg edema. He was seen by systems checkout mechanic at the office today and was asked to come to the ED for further management of CHF exacerbation. According to ED physician, systems checkout mechanic recommended starting patient on Lasix drip. Patient is on torsemide as well as Bumex at home. Patient himself reports no chest pain, no palpitations. Patient reports that usually when he gets CHF he is weight increases from a baseline of 300 and he gets about 25-30 lb. Today's weight is 328. denies any headache, change in vision, no abdominal pain but reports abdominal distension, no nausea or vomiting, no diarrhea constipation, no urinary symptoms on arrival to the ED patient's vital significant for temp of 98?, heart rate of 102, respiratory rate of 20, blood pressure 173/76, satting 91% on room air Labs are significant for WBC count of 7.9, hemoglobin of 12.8, hematocrit 42.2, INR 1.2, BNP of 433, troponin of 27 that decreased to 24 EKG shows atrial sensed ventricular paced rhythm, with no changes when compared to previous EKG chest x-ray shows unremarkable chest exam patient will be admitted for management of CHF Review of Systems Review of Systems: Yes all other systems are reviewed and are negative [facility] Medical History Chronic diastolic heart failure Cirrhosis Diabetes mellitus Diabetes type 2, uncontrolled Diabetic nephropathy associated with type 2 diabetes mellitus Diabetic neuropathy associated with type 2 diabetes mellitus Dyslipidemia HTN (hypertension) 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 due to vitamin D deficiency 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 (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 of insulin Morbid obesity Nonischemic cardiomyopathy JANELL (obstructive sleep apnea) Substance abuse Surgical History S/P cardiac cath (~11/2019) Social History Household Members: Friend(s) and Other Household Members Other:: sober living home Housing: House Do you presently have visiting nurse or other home services: No Alcohol intake: never Patient Tobacco Use Status: Former Tobacco user Quit Date: 2002 Years Smoked: 40 Use of substances other than those prescribed or required for medical reasons: No Currently Displaying Signs/Symptoms of Drug Intoxication Withdrawal: No Have you been hit, kicked, punched, or otherwise hurt by someone within the past year? If so, by whom?: No Do you feel safe in your current relationship?: No Current Relationship Is there a partner from a previous relationship who is making you feel unsafe now?: No Are you made to feel afraid or neglected: No Spiritual Healthcare Practices: n/a Advance Directives: Yes Advance Directives Information Provided: Yes Advance Directives on File: Yes Advance Directives Date on File: 07/05/20 Do you have thoughts of harming others: None Do you have a plan to hurt others: No Plan Recently lost weight without trying: No Nutrition Risks: No Nutritional Risk Poor oral hygiene: No Meds Allergies Allergy/AdvReac Type Severity Reaction Status Date / Time lisinopril AdvReac Intermediate cough Verified 09/03/20 11:58 Active Medications: Current Medications Generic Name Dose Route Start Last Admin Trade Name Freq PRN Reason Stop Dose Admin Furosemide 200 mg/ Sodium 100 mls @ 5 mls/hr 09/03/20 17:00 09/03/20 17:12 Chloride IVCONT 10 mg/hr .Q20H MELANI 5 mls/hr Administration 10 MG/HR Home Medications Medication Instructions Recorded Confirmed Last Taken Type aspirin 81 mg chewable tablet 1 tab PO DAILY 02/06/20 09/03/20 Unknown History gabapentin 600 mg tablet 600 mg PO TID 02/06/20 09/03/20 Unknown History isosorbide mononitrate 30 mg 30 mg PO DAILY 02/06/20 09/03/20 Unknown History tablet,extended release 24 hr alcohol swabs 1 pad TOPICAL TID 08/10/20 08/10/20 Unknown History albuterol sulfate 90 mcg/actuation 2 puff INHALATION Q4-6H PRN 08/31/20 09/03/20 Unknown History aerosol inhaler bumetanide 1 mg tablet 1 mg PO DAILY 08/31/20 09/03/20 Unknown History fluticasone furoate 100 1 inh INHALATION DAILY 08/31/20 09/03/20 Unknown History mcg-vilanterol 25 mcg/dose inhalation powder metoprolol succinate 100 mg 100 mg PO DAILY 08/31/20 09/03/20 Unknown History tablet,extended release 24 hr tiotropium bromide 18 mcg capsule 1 cap INHALATION DAILY 08/31/20 09/03/20 Unknown History with inhalation device losartan 1 tab PO DAILY 09/03/20 09/03/20 Unknown History torsemide 20 mg tablet 20 mg PO DAILY PRN tab 09/03/20 09/03/20 Unknown History Physical Exam Vital Signs and Narrative: Vital Signs: Last Vital Signs Temp 98.2 F 09/03/20 17:23 Pulse 100 09/03/20 17:23 Resp 18 09/03/20 17:23 BP 120/74 09/03/20 17:23 Pulse Ox 92 09/03/20 17:23 Body Mass Index 46.0 Const: Other: patient is sitting up on side of bed, due to orthopnea General: cooperative and no acute distress Orientation/consciousness: patient oriented x3 Eyes: General: appearance normal, both eyes and all related structures Resp: Other: rhonchi bilaterally Effort & Inspection: normal respiratory effort Cardio: Rate: regular rate Rhythm: regular rhythm GI: Palpation (GI): Soft to palpation Auscultation: normal bowel sounds Skin: General skin exam: no rashes or lesions noted Neuro: General: patient oriented x3 Cognition (Neuro): normal cognition Extrem: Other: 2+ pitting edema bilaterally General: Yes normal to inspection Results Labs CBC and Chem 7: 09/03/20 13:44 09/03/20 13:44 Labs: Laboratory Results - last 24 hr 09/03/20 09/03/20 09/03/20 13:44 13:44 13:44 MCV 90.6 MCH 27.5 MCHC 30.3 L RDW 16.3 H Plt Count 207 D MPV 10.0 Immature Gran % (Auto) 0.4 Neut % (Auto) 74.0 H Lymph % (Auto) 12.5 L [place] % (Auto) 9.9 Eos % (Auto) 2.8 Baso % (Auto) 0.4 Lymph # (Auto) 1.0 L [place] # (Auto) 0.8 Eos # (Auto) 0.2 Baso # (Auto) 0.0 Abs Immat Gran (auto) 0.03 Absolute Neuts (auto) 5.9 Absolute Nucleated RBC 0.000 Nucleated RBC % (auto) 0.0 PT INR APTT Anion Gap 11 L Estim Creat Clear Calc 98.1 Estimated GFR > 60 Random Glucose 303 H Calcium 8.3 L Troponin I High Sens 27.1 B-Natriuretic Peptide 433 H COVID-19 (MARCIAL) COVID-19 Clin Com 09/03/20 09/03/20 09/03/20 17:03 17:03 17:03 MCV MCH MCHC RDW Plt Count MPV Immature Gran % (Auto) Neut % (Auto) Lymph % (Auto) [place] % (Auto) Eos % (Auto) Baso % (Auto) Lymph # (Auto) [place] # (Auto) Eos # (Auto) Baso # (Auto) Abs Immat Gran (auto) Absolute Neuts (auto) Absolute Nucleated RBC Nucleated RBC % (auto) PT 14.8 H INR 1.2 H APTT 32.5 Anion Gap Estim Creat Clear Calc Estimated GFR Random Glucose Calcium Troponin I High Sens 24.0 B-Natriuretic Peptide COVID-19 (MARCIAL) Negative COVID-19 Clin Com See Note Imaging Radiologist's Impressions: Impressions Chest X-Ray 09/03/20 12:03 IMPRESSION: Unremarkable chest exam. No change from 06/26/2020 Assessment and Plan (1) Acute exacerbation of CHF (congestive heart failure): Status: Acute this is a 60-year-old male who presents to the hospital with weight gain, shortness of breath, lower extremity edema orthopnea PND # acute CHF exacerbation - orthopnea, PND, dyspnea, lower extremity edema, elevated BNP - a weight gain of 28 lb - on torsemide as needed and Bumex daily - has a history of CHF with ejection fraction of 15-20% on echocardiogram done at [facility] in May - no significantly elevated troponin - patient seen by Cardiology at their office, recommended starting Lasix drip - Lasix drip started in the ED, will continue - cardiology consult - echocardiogram # hypertension - continue in door, losartan # AFib/a flutter - patient is supposedly on Coumadin although I do not see Coumadin on his med list- will need follow-up - INR subtherapeutic - continue metoprolol - pacemaker placed in May at [facility] # diabetes - continue home insulin - add low-dose sliding scale - diabetic diet DVT prophylaxis: Lovenox at this time Quality Stroke Does the patient have a stroke diagnosis?: No VTE Prior VTE?: No VTE Risk Level:: Medical - moderate - high VTE Device Contraindication: Treatment Not Indicated VTE Drug Contraindication: N/A - Med Ordered
[2020-09-03 23:37] VITALS: BP 141/85; PULSE 98; RESP 18; TEMP 36.6; O2SAT 95
[2020-09-04] VITALS (7 sets, daily range): BP systolic 103–162; BP diastolic 55–92; PULSE 81–101; RESP 18–20; TEMP 36.1–36.7; O2SAT 94–97; BMI 45.1
[2020-09-04] MEDS: oxyCODONE HCl Immed Release 5 MG TABLET PO ×5 (01:22→23:35)
[2020-09-04 06:40] LABS: MANUAL DIFF FLAG NO
[2020-09-04 06:48] LABS: Basophils Percent Auto 0.5 % (0-2); Eosinophils Absolute Auto 0.3 X10*3/uL (0.0-0.4); Eosinophils Percent Auto 3.5 % (0-4); Hematocrit 42.8 % (42-52); Hemoglobin 12.5 g/dl (14.0-18.0); Imm Gran Abs Auto 0.03 X10*3/uL (0.00-0.03); Imm Gran Pct Auto 0.4 % (0.0-0.4); Lymphocytes Absolute Auto 1.1 X10*3/uL (1.2-4.9); Lymphocytes Percent Auto 14.8 % (20-40); Mean Corpuscular HGB Conc 29.2 g/dl (31.0-36.0); Mean Corpuscular Hemoglobin 26.6 pg (27.0-33.0); Mean Corpuscular Volume 91.1 fL (80-98); Mean Platelet Volume 10.4 fL (9.4-12.4); Monocytes Absolute Auto 0.8 X10*3/uL (0.1-1.2); Monocytes Percent Auto 10.3 % (2-11); Neutrophils Absolute Auto 5.3 X10*3/uL (2.0-8.3); Neutrophils Percent Auto 70.5 % (45-73); Platelet Count 234 X10*3/uL (160-400); Red Cell Distribution Width 16.1 % (11.0-16.0); White Blood Count 7.5 X10*3/uL (4.8-10.8)
--- NOTE | 2020-09-04 07:00 | CA_ITS ---
Transthoracic Echocardiogram Patient (Last, First, Middle): Ramiro Hamm, Gender: Male Date of : 1960 Age: 60 Procedure Date: 09/04/2020 Procedure Type: Transthoracic Echocardiogram Location: [facility] [place] Height: 180.34 cm Weight: 146.99 kg BSA: 2.59 m2 Heart Rate: bpm BP: 135 / 67 mmHg Digital Sales Executive: TOM/TEENA Referring MD: Louis Andrade MD Environmental Attorney: Anjel Lutz MD Symptoms: chf Study Quality: Technically Difficult ECG Rhythm: Ventriculary paced rhythm Conclusions: - 1. Technically limited study despite use of contrast 2. LV systolic function appears severely decreased with LVEF of 20-25% with pseudonormal filling pattern 3. RV also appears to be enlarged, systolic function cannot be commented upon 4. Limited evaluation of cardiac valves with normal Doppler is 5. Normal measured RV systolic pressure but significantly elevated right atrial pressures Findings Left Ventricle The left ventricle was not well visualized. Mildly increased left ventricular cavity size. The left ventricular systolic function is severely decreased. The visually estimated ejection fraction is between 20-25%. Regional wall motion abnormalities can not be excluded due to suboptimal endocardial definition. Spectral Doppler is indicative of a pseudonormal filling pattern. Right Ventricle Moderately increased right ventricular cavity size. There is an ICD wire seen in the right ventricle. Atria The left atrium is moderately dilated. Interatrial shunt cannot be excluded. The right atrium was not well visualized. Aortic Valve The aortic valve was not well visualized. There is no aortic valve stenosis. There is no aortic valve regurgitation. Mitral Valve The mitral valve was not well visualized. There is trace mitral valve regurgitation. There is no mitral valve stenosis. Pulmonic Valve The pulmonic valve was not well visualized. Tricuspid Valve The tricuspid valve was not well visualized. There is mild tricuspid valve regurgitation. The right ventricular systolic pressure is normal. Significantly elevated right atrial pressure. Great Vessels The aorta was not well visualized. The pulmonary artery was not well visualized. Venous The inferior vena cava is severely dilated. Pericardium/Pleural The pericardium was not well visualized. Prior Study Comparison Significant changes compared to prior study dated: 12/28/2018. LV systolic function is significantly reduced Measurements M-Mode Liner Measurements Normals - Women/Men AOV Cusps: 1.80 1.5-2.6 cm/m2 2D Linear Measurements IVSd: 1.18 0.6-0.9/0.6-1.0 cm LVIDd: 5.35 3.9-5.3/4.2-5.9 cm LVIDd Index: 2.07 2.4-3.2/2.2-3.1 cm/m2 LVIDs: 4.75 2.0-3.6 cm LVPWd: 1.15 0.7-1.1 cm Ao Root: 3.20 2.1-3.5 cm LA Diam: 5.40 2.7-3.8/3.0-4.0 cm LAIDs Index: 2.08 1.5-2.3 cm/m2 LV Mass: 311.85 67-162/88-224 g LV Mass Index: 120.40 43-95/49-115 g/m2 LVOT Diam: 2.30 3.0+(-)1.3 cm Mitral Valve MV Pk E: 0.99 MV PK A: 0.62 MV Decel Time: 166.00 E/A: 1.60 E'Lateral: 7.83 E'Medial: 6.20 E/E' Med: 16.00 E/E' Lat: 12.70 PHT: 49.00 MVA PHT: 4.49 Decel [place]: 5.96 Aortic Valve AoV Pk Kolby: 1.00 AoV Mn Kol[place]: 0.64 AoV VTI: 0.17 AoV Pk Grad: 4.00 Aov Mn Grad: 2.00 JOSS Cont.VTI: 2.74 LVOT LVOT Pk [place]: 0.63 LVOT Mn [place]: 0.44 LVOT VTI: 0.12 LVOT Pk Grad: 2.00 LVOT Mn Grad: 1.00 LVOT Diam: 2.30 LVOT Area: 4.15 Diastolic Function MV Pk E: 0.99 MV Pk A: 0.62 E/A: 1.60 E'Medial: 6.20 E/E' Med: 16.00 E' Laterial: 7.83 E/E' Lat: 12.70 Tricuspid Valve TR Pk Kolby: 2.23 TR Pk Grad: 20.00 RA Press: 15.00 RVSP: 35.00 Great Vessels Aorta Ao Root-2D: 3.20 2.0-3.7 cm Ao Asc: 3.40 2.1-3.4 cm Pulmonary Valve PV Pk Kolby: 0.86 Peak PV Grad: 3.00 Updated in Other Vendor System with Status of Final Anjel Lutz MD electronically signed on 09/04/2020 4:03:43 PM with status of Final
[2020-09-04 07:28] LABS: Anion Gap 13 (12-20); Blood Urea Nitrogen 19 mg/dL (9-16); Calcium 8.2 mg/dL (8.4-10.2); Carbon Dioxide 29 mmol/L (22-29); Chloride 101 mmol/L (96-108); Creatinine Clr Calc Pharmacy 106.2; Estimated Glomerular Filt Rate > 60; Glucose Random 364 mg/dL (60-115); Potassium 4.3 mmol/L (3.3-5.1); Sodium 139 mmol/L (135-145)
[2020-09-04 07:33] LABS: Glucose, Whole Blood 333 mg/dL (60-115)
[2020-09-04] MEDS: Fluticasone/Vilanterol 100/25 BLST.W.DEV 1 PUFF INHALE (07:50)
[2020-09-04] MEDS: Insulin Lispro 100 UNIT/ML 3 ML VIAL SUBCUT ×4 (08:15→20:44)
[2020-09-04] MEDS: Gabapentin 600 MG TABLET PO ×3 (08:15→20:04)
[2020-09-04] MEDS: Metoprolol Succinate ER 100 MG TAB.ER.24H PO (08:16)
[2020-09-04] MEDS: Aspirin 81 MG TAB.CHEW PO (08:16)
[2020-09-04] MEDS: Losartan Potassium 50 MG TABLET PO (08:16)
[2020-09-04] MEDS: Isosorbide Mononitrate 30 MG TAB.ER.24H PO (08:16)
--- NOTE | 2020-09-04 09:34 | MHC.CM.PN ---
CM met with Patient at bedside. Patient's goal for dc is to return to [facility] and CM has initiated and will follow for dc planning. Patient has no HCP and expressed no interest in completing a HCP ; his PCP is Dr. Linh Ramos. Patient does not use O2 at home.
--- NOTE | 2020-09-04 10:31 | PM.PNCARD ---
Subjective Subjective Date of Service: 09/04/20 <VITOR Doran - Last Filed: 09/04/20 12:18> 09/04/20 <Anjel Lutz MD - Last Filed: 09/04/20 12:27> Principal diagnosis: Acute on chronic CHF, Nonischemic CMP, Pacemaker <VITOR Doran - Last Filed: 09/04/20 12:18> Interval history: Cardiology follow up for the above. Seen at 0830. Today he reports ongoing sob but some improvement since admit yesterday. Currently laying with mostly flat, wearing O2 liters. No cough. Intermittent pains chest region, occurring at rest. No palpitation. No dizziness. Abdomen is distended, obese. Legs with tenderness to palpation. Has not been OOB yet this am. <VITOR Doran - Last Filed: 09/04/20 12:18> Review of Systems Review of Systems as above <VITOR Doran - Last Filed: 09/04/20 12:18> Yes all other systems are reviewed and are negative <VITOR Doran - Last Filed: 09/04/20 12:18> Physical Exam Vital Signs: Last Vital Signs Temp 97.8 F 09/04/20 07:48 Pulse 100 09/04/20 07:54 Resp 20 09/04/20 07:48 BP 162/92 H 09/04/20 07:48 Pulse Ox 96 09/04/20 07:48 Body Mass Index 45.1 <VITOR Doran - Last Filed: 09/04/20 12:18> Const Other: obese, appropriate <VITOR Dorna - Last Filed: 09/04/20 12:18> General: cooperative, alert and awake <VITOR Doran - Last Filed: 09/04/20 12:18> Orientation/consciousness: patient oriented x3 <VITOR Doran - Last Filed: 09/04/20 12:18> Chest Other: pacer site, left upper chest benign <VITOR Doran - Last Filed: 09/04/20 12:18> Resp Other: Mildly labored at rest <Rosalba De La Torre DEMO COORDINATOR-C - Last Filed: 09/04/20 12:18> Effort & Inspection: able to speak in complete sentences and not labored <Rosalba De La TorreMAGOC - Last Filed: 09/04/20 12:18> Auscultation: clear to auscultation bilaterally, no crackles, no rales, no rhonchi and no wheezes <Rosalba De La TorreMAGOC - Last Filed: 09/04/20 12:18> Cardio Jugular venous distension: JVD present <Rosalba De La TorreMAGOC - Last Filed: 09/04/20 12:18> Palpation: normal PMI <Rosalba De La TorreMARIA EMaryanC - Last Filed: 09/04/20 12:18> Rate: regular rate <Rosalba De La TorreMARIA EMaryanC - Last Filed: 09/04/20 12:18> Rhythm: regular rhythm <Rosalba De La TorreMARIA EMaryanC - Last Filed: 09/04/20 12:18> Heart sounds: S1 normal heart sound present and S2 normal heart sound present <Rosalba De La TorreMARIA E-C - Last Filed: 09/04/20 12:18> Peripheral pulses: Peripheral pulses 2+ throughout <Rosalba De La TorreMARIA E-C - Last Filed: 09/04/20 12:18> GI Other: Obese - round, nontender <Rosalba De La TorreMAGOC - Last Filed: 09/04/20 12:18> Neuro General: patient oriented x3 <Rosalba Larkin BrittMAGOC - Last Filed: 09/04/20 12:18> Extrem Other: nonpitting edema in lower legs <Rosalba De La TorreMARIA E-C - Last Filed: 09/04/20 12:18> Results Labs and Meds Result diagrams: : 09/04/20 06:06 09/04/20 06:06 <Rosalba De La TorreMAGOC - Last Filed: 09/04/20 12:18> Lab results: Laboratory Results - last 24 hr 09/03/20 09/03/20 09/03/20 13:44 13:44 13:44 WBC 7.9 RBC 4.66 D Hgb 12.8 L D Hct 42.2 D MCV 90.6 MCH 27.5 MCHC 30.3 L RDW 16.3 H Plt Count 207 D MPV 10.0 Immature Gran % (Auto) 0.4 Neut % (Auto) 74.0 H Lymph % (Auto) 12.5 L [place] % (Auto) 9.9 Eos % (Auto) 2.8 Baso % (Auto) 0.4 Lymph # (Auto) 1.0 L [place] # (Auto) 0.8 Eos # (Auto) 0.2 Baso # (Auto) 0.0 Abs Immat Gran (auto) 0.03 Absolute Neuts (auto) 5.9 Absolute Nucleated RBC 0.000 Nucleated RBC % (auto) 0.0 PT INR APTT Sodium 139 Potassium 4.0 Chloride 104 Carbon Dioxide 28 Anion Gap 11 L BUN 24 H Creatinine 1.16 Estim Creat Clear Calc 98.1 Estimated GFR > 60 POC Glucose Random Glucose 303 H Calcium 8.3 L Troponin I High Sens 27.1 B-Natriuretic Peptide 433 H COVID-19 (MARCIAL) COVID-19 [employer] 09/03/20 09/03/20 09/03/20 17:03 17:03 17:03 WBC RBC Hgb Hct MCV MCH MCHC RDW Plt Count MPV Immature Gran % (Auto) Neut % (Auto) Lymph % (Auto) [place] % (Auto) Eos % (Auto) Baso % (Auto) Lymph # (Auto) [place] # (Auto) Eos # (Auto) Baso # (Auto) Abs Immat Gran (auto) Absolute Neuts (auto) Absolute Nucleated RBC Nucleated RBC % (auto) PT 14.8 H INR 1.2 H APTT 32.5 Sodium Potassium Chloride Carbon Dioxide Anion Gap BUN Creatinine Estim Creat Clear Calc Estimated GFR POC Glucose Random Glucose Calcium Troponin I High Sens 24.0 B-Natriuretic Peptide COVID-19 (MARCIAL) Negative COVID-19 [employer] [facility] See Note 09/04/20 09/04/20 09/04/20 06:06 06:06 07:18 WBC 7.5 RBC 4.70 Hgb 12.5 L Hct 42.8 MCV 91.1 MCH 26.6 L MCHC 29.2 L RDW 16.1 H Plt Count 234 MPV 10.4 Immature Gran % (Auto) 0.4 Neut % (Auto) 70.5 Lymph % (Auto) 14.8 L [place] % (Auto) 10.3 Eos % (Auto) 3.5 Baso % (Auto) 0.5 Lymph # (Auto) 1.1 L [place] # (Auto) 0.8 Eos # (Auto) 0.3 Baso # (Auto) 0.0 Abs Immat Gran (auto) 0.03 Absolute Neuts (auto) 5.3 Absolute Nucleated RBC 0.000 Nucleated RBC % (auto) 0.0 PT INR APTT Sodium 139 Potassium 4.3 Chloride 101 Carbon Dioxide 29 Anion Gap 13 BUN 19 H Creatinine 1.06 Estim Creat Clear Calc 106.2 Estimated GFR > 60 POC Glucose 333 H Random Glucose 364 H* Calcium 8.2 L Troponin I High Sens B-Natriuretic Peptide COVID-19 (MARCIAL) COVID-19 Clin Com <VITOR Doran - Last Filed: 09/04/20 12:18> Imaging Radiologist's impression: Impressions Chest X-Ray 09/03/20 12:03 IMPRESSION: Unremarkable chest exam. No change from 06/26/2020 <VITOR Doran - Last Filed: 09/04/20 12:18> Progress Note: A&P Assessment and plan (1) Congestive heart failure (CHF): Status: Acute <VITOR Doran - Last Filed: 09/04/20 12:18> Assessment and Plan: Hx of nonischemic CMP, follows with Dr Paul as outpt. [place] [facility] [place], EF 15-20%. Will work on obtaining records. OV with Dr Paul yesterday and found to have decompensated HF, NYHA class III. CXR yesterday showed no acute findings. BNP 433Admit for IV diuresis. On Lasix drip at 10mg hr and fluid balance neg 2 liters since admit. He continues to have shortness of breath, wearing O2 2liters and sat 96%. + JVD. Obesity limits accuracy of physical assessment. Cr 1.06. Continue IV Lasix drip. Will start Aldactone 12.5mg daily. Will stop Losartan and start Entresto 24/ BID tomorrow. Continue Metoprolol xl 100mg daily. Will stop Imdur. Strict I+O monitoring, Close monitoring of electrolyte and kidney function. Echo is pending. We will follow. <Rosalba ElizabethVITOR jacinto - Last Filed: 09/04/20 12:18> (2) Cardiomyopathy: Status: Acute <Rosalba De La TorreVITOR - Last Filed: 09/04/20 12:18> Assessment and Plan: Echo 50-55% 12/28/18. Recent [facility] admit and EF 15-20% - Recurrent HF admit now. Echo pending. Med adjustments as above. Entresto and Metoprolol xl for neurohormonal modulation <Rosalba Larkin VITOR De La Torre - Last Filed: 09/04/20 12:18> (3) S/P cardiac cath: Status: Acute <Rosalba ElizabethVITOR jacinto - Last Filed: 09/04/20 12:18> Assessment and Plan: No significant CAD on cath 11/2019 <Rosalba ElizabethVITOR jacinto - Last Filed: 09/04/20 12:18> (4) JANELL (obstructive sleep apnea): Status: Acute <Rosalba Larkin VITOR De La Torre - Last Filed: 09/04/20 12:18> Assessment and Plan: He reports JANELL diagnosis and uses CPAP at night <Rosalba Larkin VITOR De La Torre - Last Filed: 09/04/20 12:18> (5) Morbid obesity: Status: Acute <Rosalba ElizabethVITOR jacinto - Last Filed: 09/04/20 12:18> (6) HTN (hypertension): Status: Acute <Rosalba Larkin VITOR De La Torre - Last Filed: 09/04/20 12:18> Assessment and Plan: elevated this am at 162/92. Med changes as above <Rosalba Larkin VITOR De La Torre - Last Filed: 09/04/20 12:18> (7) Biventricular ICD (implantable cardioverter-defibrillator) in place: Status: Acute <Rosalba ElizabethVITOR jacinto - Last Filed: 09/04/20 12:18> Assessment and Plan: [employer] Bi V ICD interrogation today shows battery 4.9 years, thresholds normal, DDDR mode, low rate 80, VF therapy on, 1 reported NSVT since insert and no therapy needed, activity 1.1 yr day, PAF episodes noted, optivol elevation as of 08/31/20, night heart rate over 85 last 7 days. No changes made. <VITOR Doran - Last Filed: 09/04/20 12:18> (8) Acute exacerbation of CHF (congestive heart failure): Status: Acute <VITOR Doran - Last Filed: 09/04/20 12:18> Assessment and Plan: patient seen and examined. Case discussed with Rosalba. Patient still short of breath but is improved. Still appears to be fluid overloaded. Diuresing adequately. Continue Lasix drip. Switch losartan to Entresto for better neurohormonal modulation given significant systolic dysfunction with good data. Continue metoprolol for neurohormonal modulation. Will add Aldactone 12.5 mg to his regimen. CHF education was provided. Will check his device today. Noted to have prior atrial fibrillation / flutter, should start him on Xarelto 20 mg daily. Discontinue aspirin therapy. Will continue to follow with you. Will <Anjel Lutz MD - Last Filed: 09/04/20 12:27> Fall Risk Details Current Medications: Current Medications Generic Name Dose Route Start Last Admin Trade Name Freq PRN Reason Stop Dose Admin Acetaminophen 650 mg 09/03/20 23:33 Acetaminophen 325 Mg Tablet PO Q6H PRN Pain, Mild (Pain Scale 1-3) Albuterol Sulfate 2 puff 09/04/20 05:51 Albuterol Sulfate 90 Mcg 8 Gm Inhaler INHALE Q4H PRN Shortness Of Breath Atorvastatin Calcium 80 mg 09/04/20 21:00 Atorvastatin Calcium 80 Mg Tablet PO BEDTIME MELANI Docusate Sodium 100 mg 09/03/20 23:33 Docusate Sodium 100 Mg Capsule PO DAILY PRN Constipation Fluticasone/Vilanterol 1 puff 09/04/20 09:00 09/04/20 07:50 Fluticasone/Vilanterol 100/25 Blst.W.Dev INHALE 1 puff DAILY MELANI Administration Gabapentin 600 mg 09/04/20 09:00 09/04/20 08:15 Gabapentin 600 Mg Tablet PO 600 mg TID MELANI Administration Furosemide 200 mg/ Sodium 100 mls @ 5 mls/hr 09/03/20 17:00 09/03/20 17:12 Chloride IVCONT 10 mg/hr .Q20H MELANI 5 mls/hr Administration 10 MG/HR Insulin Human Lispro 0 unit 09/04/20 07:30 09/04/20 08:15 Insulin Lispro 100 Unit/Ml 3 Ml Vial SUBCUT 8 unit QIDACHS [facility] Administration Protocol Metoprolol Succinate 100 mg 09/04/20 09:00 09/04/20 08:16 Metoprolol Succinate Er 100 Mg Tab.Er.24h PO 100 mg DAILY [facility] Administration Protocol Non-Formulary Medication 0 dose 09/04/20 06:00 Insulin Regular Hum U-500 Conc SUBCUT .Twice a day [facility] Oxycodone HCl 5 mg 09/04/20 00:59 09/04/20 06:15 Oxycodone Hcl Immed Release 5 Mg Tablet PO 5 mg Q6H PRN Administration Pain, Severe (Pain Scale 7-10) Rivaroxaban 20 mg 09/04/20 17:00 Rivaroxaban 20 Mg Tablet PO DAILY [facility] Sacubitril/Valsartan 1 tab 09/05/20 09:00 Sacubitril/Valsartan 24 1 Tab Tablet PO BID [facility] Protocol Sodium Chloride 3 ml 09/04/20 00:00 09/04/20 08:15 0.9 % Sodium Chloride Flush 3 Ml Syringe IVFLUSH Not Given QSHIFT [facility] Spironolactone 12.5 mg 09/04/20 09:45 Spironolactone 25 Mg Tablet PO DAILY [facility] Protocol Tiotropium [place] 1 puff 09/04/20 09:00 09/04/20 07:50 Tiotropium [place] 18 Mcg Cap.W.Dev INHALE 1 puff DAILY [facility] Administration <VITOR Doran - Last Filed: 09/04/20 12:18> Time Spent With Patient Time: Total time spent is greater than 50% in coordination of care (as documented) at patient's floor/unit and/or counseling patient: 24 <VITOR Doran - Last Filed: 09/04/20 12:18> Time with patient: 15 - 24 minutes <VITOR Doran - Last Filed: 09/04/20 12:18> Progress Note: Quality Stroke Does the patient have a stroke diagnosis?: No <VITOR Doran - Last Filed: 09/04/20 12:18> Procedures Date of Service Date of Service: 09/04/20 <VITOR Doran - Last Filed: 09/04/20 12:18>
--- NOTE | 2020-09-04 10:32 | PM.IMPN ---
Subjective Subjective Date of Service: 09/04/20 Interval History: follow-up heart failure general edema right leg pain not putting out much urine Physical Exam Vital Signs: Vital Signs: Last Vital Signs Temp 97.8 F 09/04/20 07:48 Pulse 100 09/04/20 07:54 Resp 20 09/04/20 07:48 BP 162/92 H 09/04/20 07:48 Pulse Ox 96 09/04/20 07:48 Body Mass Index 45.1 Appearing in no acute distress lung sounds rales throughout heart regular rate rhythm, clear S1, S2, significant edema diffusely positive bowel sounds, abdomen is soft, nontender, obese neuro patient is alert x3, no focal deficits Objective Data Current Medications Generic Name Dose Route Start Last Admin Trade Name Freq PRN Reason Stop Dose Admin Acetaminophen 650 mg 09/03/20 23:33 Acetaminophen 325 Mg Tablet PO Q6H PRN Pain, Mild (Pain Scale 1-3) Albuterol Sulfate 2 puff 09/04/20 05:51 Albuterol Sulfate 90 Mcg 8 Gm Inhaler INHALE Q4H PRN Shortness Of Breath Atorvastatin Calcium 80 mg 09/04/20 21:00 Atorvastatin Calcium 80 Mg Tablet PO BEDTIME MELANI Docusate Sodium 100 mg 09/03/20 23:33 Docusate Sodium 100 Mg Capsule PO DAILY PRN Constipation Fluticasone/Vilanterol 1 puff 09/04/20 09:00 09/04/20 07:50 Fluticasone/Vilanterol 100/25 Blst.W.Dev INHALE 1 puff DAILY MELANI Administration Gabapentin 600 mg 09/04/20 09:00 09/04/20 08:15 Gabapentin 600 Mg Tablet PO 600 mg TID MELANI Administration Furosemide 200 mg/ Sodium 100 mls @ 5 mls/hr 09/03/20 17:00 09/03/20 17:12 Chloride IVCONT 10 mg/hr .Q20H MELANI 5 mls/hr Administration 10 MG/HR Insulin Human Lispro 0 unit 09/04/20 07:30 09/04/20 08:15 Insulin Lispro 100 Unit/Ml 3 Ml Vial SUBCUT 8 unit QIDACHS MELANI Administration Protocol Metoprolol Succinate 100 mg 09/04/20 09:00 09/04/20 08:16 Metoprolol Succinate Er 100 Mg Tab.Er.24h PO 100 mg DAILY MELANI Administration Protocol Non-Formulary Medication 0 dose 09/04/20 06:00 Insulin Regular Hum U-500 Conc SUBCUT .Twice a day [facility] Oxycodone HCl 5 mg 09/04/20 00:59 09/04/20 06:15 Oxycodone Hcl Immed Release 5 Mg Tablet PO 5 mg Q6H PRN Administration Pain, Severe (Pain Scale 7-10) Rivaroxaban 20 mg 09/04/20 17:00 Rivaroxaban 20 Mg Tablet PO DAILY [facility] Sacubitril/Valsartan 1 tab 09/05/20 09:00 Sacubitril/Valsartan 1 Tab Tablet PO BID [facility] Protocol Sodium Chloride 3 ml 09/04/20 00:00 09/04/20 08:15 0.9 % Sodium Chloride Flush 3 Ml Syringe IVFLUSH Not Given QSHIFT [facility] Spironolactone 12.5 mg 09/04/20 09:45 Spironolactone 25 Mg Tablet PO DAILY [facility] Protocol Tiotropium [place] 1 puff 09/04/20 09:00 09/04/20 07:50 Tiotropium [place] 18 Mcg Cap.W.Dev INHALE 1 puff DAILY [facility] Administration Labs CBC & Chem 7: 09/04/20 06:06 09/04/20 06:06 Labs: Laboratory Results - last 24 hr 09/03/20 09/03/20 09/03/20 13:44 13:44 13:44 MCV 90.6 MCH 27.5 MCHC 30.3 L RDW 16.3 H Plt Count 207 D MPV 10.0 Immature Gran % (Auto) 0.4 Neut % (Auto) 74.0 H Lymph % (Auto) 12.5 L [place] % (Auto) 9.9 Eos % (Auto) 2.8 Baso % (Auto) 0.4 Lymph # (Auto) 1.0 L [place] # (Auto) 0.8 Eos # (Auto) 0.2 Baso # (Auto) 0.0 Abs Immat Gran (auto) 0.03 Absolute Neuts (auto) 5.9 Absolute Nucleated RBC 0.000 Nucleated RBC % (auto) 0.0 PT INR APTT Anion Gap 11 L Estim Creat Clear Calc 98.1 Estimated GFR > 60 POC Glucose Random Glucose 303 H Calcium 8.3 L Troponin I High Sens 27.1 B-Natriuretic Peptide 433 H COVID-19 (MARCIAL) COVID-19 Clin Com 09/03/20 09/03/20 09/03/20 17:03 17:03 17:03 MCV MCH MCHC RDW Plt Count MPV Immature Gran % (Auto) Neut % (Auto) Lymph % (Auto) [place] % (Auto) Eos % (Auto) Baso % (Auto) Lymph # (Auto) [place] # (Auto) Eos # (Auto) Baso # (Auto) Abs Immat Gran (auto) Absolute Neuts (auto) Absolute Nucleated RBC Nucleated RBC % (auto) PT 14.8 H INR 1.2 H APTT 32.5 Anion Gap Estim Creat Clear Calc Estimated GFR POC Glucose Random Glucose Calcium Troponin I High Sens 24.0 B-Natriuretic Peptide COVID-19 (MARCIAL) Negative COVID-19 Clin Com See Note 09/04/20 09/04/20 09/04/20 06:06 06:06 07:18 MCV 91.1 MCH 26.6 L MCHC 29.2 L RDW 16.1 H Plt Count 234 MPV 10.4 Immature Gran % (Auto) 0.4 Neut % (Auto) 70.5 Lymph % (Auto) 14.8 L [place] % (Auto) 10.3 Eos % (Auto) 3.5 Baso % (Auto) 0.5 Lymph # (Auto) 1.1 L [place] # (Auto) 0.8 Eos # (Auto) 0.3 Baso # (Auto) 0.0 Abs Immat Gran (auto) 0.03 Absolute Neuts (auto) 5.3 Absolute Nucleated RBC 0.000 Nucleated RBC % (auto) 0.0 PT INR APTT Anion Gap 13 Estim Creat Clear Calc 106.2 Estimated GFR > 60 POC Glucose 333 H Random Glucose 364 H* Calcium 8.2 L Troponin I High Sens B-Natriuretic Peptide COVID-19 (MARCIAL) COVID-19 Clin Com Progress Note: A&P (1) Acute exacerbation of CHF (congestive heart failure): Status: Acute Assessment and Plan: this is a 60-year-old male who presents to the hospital with weight gain, shortness of breath, lower extremity edema orthopnea PND Acute on chronic HFrEF exacerbation. orthopnea, PND, dyspnea, lower extremity edema, elevated BNP weight gain of 28 lb - needs significant diuresis, continue lasix drip - cardiology following - echocardiogram - Entresto, aldactone started - monitor intake and output, daily weights Right leg pain. Likely secondary to edema - continue aggressive diuresis - if pain continues consider diagnostic imaging Hypertension. uncontrolled -metoprolol AFib/a flutter. No exacerbation - metoprolol, Xarelto Diabetes - sliding scale, ADA diet DVT prophylaxis with Xarelto Attending: Dr. Rico Full code Quality Stroke Does the patient have a stroke diagnosis?: No VTE Prior VTE?: No VTE Risk Level:: Medical - moderate - high VTE Device Contraindication: Treatment Not Indicated VTE Drug Contraindication: N/A - Med Ordered
[2020-09-04] MEDS: Acetaminophen 325 MG TABLET 650 MG PO (11:24)
[2020-09-04] MEDS: Spironolactone 25 MG TABLET 12.5 MG PO (11:25)
[2020-09-04 11:26] LABS: Glucose, Whole Blood 343 mg/dL (60-115)
[2020-09-04] MEDS: Furosemide 200 MG in 0.9 % Sodium Chloride 80 ML IVCONT (15:18)
[2020-09-04] MEDS: 0.9 % Sodium Chloride Flush 3 ML SYRINGE IVFLUSH ×2 (15:18→23:35)
[2020-09-04 16:01] LABS: Glucose, Whole Blood 335 mg/dL (60-115)
[2020-09-04] MEDS: Rivaroxaban 20 MG TABLET PO (16:24)
[2020-09-04] MEDS: Atorvastatin Calcium 80 MG TABLET PO (20:04)
[2020-09-04 20:10] LABS: Glucose, Whole Blood 292 mg/dL (60-115)
[2020-09-04 22:28] LABS: Glucose, Whole Blood 268 mg/dL (60-115)
[2020-09-05] VITALS (9 sets, daily range): BP systolic 101–144; BP diastolic 67–82; PULSE 85–95; RESP 16–22; TEMP 35.5–36.9; O2SAT 82–98; BMI 42.5
[2020-09-05] MEDS: oxyCODONE HCl Immed Release 5 MG TABLET PO ×3 (05:46→17:59)
[2020-09-05 07:09] LABS: Hematocrit 41.8 % (42-52); Hemoglobin 12.4 g/dl (14.0-18.0); Mean Corpuscular HGB Conc 29.7 g/dl (31.0-36.0); Mean Corpuscular Hemoglobin 27.3 pg (27.0-33.0); Mean Corpuscular Volume 92.1 fL (80-98); Mean Platelet Volume 10.5 fL (9.4-12.4); Platelet Count 222 X10*3/uL (160-400); Red Blood Count 4.54 X10*6/uL (4.60-5.80)
[2020-09-05 07:24] LABS: Glucose, Whole Blood 297 mg/dL (60-115)
[2020-09-05] MEDS: Fluticasone/Vilanterol 100/25 BLST.W.DEV 1 PUFF INHALE (07:30)
[2020-09-05 07:40] LABS: Anion Gap 12 (12-20); Blood Urea Nitrogen 17 mg/dL (9-16); Calcium 8.2 mg/dL (8.4-10.2); Carbon Dioxide 35 mmol/L (22-29); Chloride 96 mmol/L (96-108); Estimated Glomerular Filt Rate > 60; Glucose Random 296 mg/dL (60-115); Potassium 3.6 mmol/L (3.3-5.1); Sodium 139 mmol/L (135-145)
[2020-09-05 07:48] LABS: B Type Natriuretic Peptide 301 pg/mL (<100)
[2020-09-05] MEDS: Insulin Lispro 100 UNIT/ML 3 ML VIAL SUBCUT ×4 (08:01→20:44)
[2020-09-05] MEDS: Spironolactone 25 MG TABLET 12.5 MG PO (08:01)
[2020-09-05] MEDS: Sacubitril/Valsartan 24/26 1 TAB TABLET PO (08:02)
[2020-09-05] MEDS: Gabapentin 600 MG TABLET PO ×3 (08:02→20:44)
[2020-09-05] MEDS: Metoprolol Succinate ER 100 MG TAB.ER.24H PO (08:02)
--- NOTE | 2020-09-05 09:53 | P.PNCA_ITS ---
Subjective Subjective Date of Service: 09/05/20 Principal diagnosis: Acute on chronic CHF, Nonischemic CMP, Pacemaker Interval history: Patient is diuresing well. Tolerating new additions to medicines. His leg edema is improving. His orthopnea is improving. Denies any chest pain, palpitations, lightheadedness, dizziness. Review of Systems Constitutional: Reports no additional constitutional complaints Cardiovascular: Denies chest pain, Denies lightheadedness, Denies palpitations and Reports dyspnea ( Improving) Respiratory: Reports no additional respiratory complaints and Reports dyspnea ( Improving) Gastrointestinal: Reports no additional gastrointestinal complaints Genitourinary: Reports no additional male genitourinary complaints Reports system reviewed and no additional complaints, except as documented Psychiatric: Reports no additional psychiatric complaints Endocrine: Denies palpitations Physical Exam Vital Signs: Last Vital Signs Temp 98 F 09/05/20 07:02 Pulse 95 09/05/20 08:02 Resp 20 09/05/20 07:02 BP 129/79 09/05/20 08:02 Pulse Ox 92 09/05/20 07:02 Body Mass Index 42.5 Const General: cooperative, comfortable, no acute distress, alert and awake Nutritional Appearance: obese Orientation/consciousness: patient oriented x3 Neck Neck: Yes trachea midline, Yes supple and Yes JVD Resp Effort & Inspection: normal respiratory effort Auscultation: clear to auscultation bilaterally Cardio Jugular venous distension: JVD Palpation: abnormal PMI displaced PMI Rate: regular rate Rhythm: regular rhythm Heart sounds: S1 normal heart sound present and S2 normal heart sound present Skin General skin exam: no rashes or lesions noted Neuro General: patient oriented x3 and no focal motor deficits Extrem General: No clubbing, No cyanosis and Yes edema Psych Appearance: grossly normal Results Labs and Meds Result diagrams: 09/05/20 06:01 09/05/20 06:01 Lab results: Laboratory Results - last 24 hr 09/04/20 09/04/20 09/04/20 11:20 15:57 19:56 WBC RBC Hgb Hct MCV MCH MCHC RDW Plt Count MPV Absolute Nucleated RBC Nucleated RBC % (auto) Sodium Potassium Chloride Carbon Dioxide Anion Gap BUN Creatinine Estim Creat Clear Calc Estimated GFR POC Glucose 343 H 335 H 292 H Random Glucose Calcium B-Natriuretic Peptide 09/04/20 09/05/20 09/05/20 22:24 06:01 06:01 WBC RBC Hgb Hct MCV MCH MCHC RDW Plt Count MPV Absolute Nucleated RBC Nucleated RBC % (auto) Sodium 139 Potassium 3.6 Chloride 96 Carbon Dioxide 35 H Anion Gap 12 BUN 17 H Creatinine 0.99 Estim Creat Clear Calc 110.0 Estimated GFR > 60 POC Glucose 268 H Random Glucose 296 H Calcium 8.2 L B-Natriuretic Peptide 301 H 09/05/20 09/05/20 06:01 07:02 WBC 7.0 RBC 4.54 L Hgb 12.4 L Hct 41.8 L MCV 92.1 MCH 27.3 MCHC 29.7 L RDW 16.0 Plt Count 222 MPV 10.5 Absolute Nucleated RBC 0.000 Nucleated RBC % (auto) 0.0 Sodium Potassium Chloride Carbon Dioxide Anion Gap BUN Creatinine Estim Creat Clear Calc Estimated GFR POC Glucose 297 H Random Glucose Calcium B-Natriuretic Peptide Progress Note: A&P Assessment and plan (1) Acute exacerbation of CHF (congestive heart failure): Status: Acute Assessment and Plan: acute exacerbation of congestive heart failure with severe systolic dysfunction. Clinically improving. Continue IV diuresis with Lasix drip. Maximize neurohormonal modulation. Increase Toprol-XL to 100 mg b.i.d.. Increase Entresto to 49-51 mg b.i.d.. Continue Aldactone therapy at 12.5 mg daily. Strict intake and output chart needs to be pursued. Follow BMP and BNP tomorrow. CHF education should be provided to the patient to improve his understanding of the disease and intervening early in his decompensation phase to avoid recurrent hospitalization. He is agreeable. Out of bed to chair. (2) Paroxysmal atrial fibrillation: Status: Acute Assessment and Plan: Paroxysmal atrial fibrillation. Will continue to monitor clinically. No in terventions required at this point time. If recurrent atrial fibrillation that he tolerates not well may consider antiarrhythmic drug therapy. Continue full oral anticoagulation, currently on Xarelto 20 mg daily. Avoid concomitant aspirin therapy. Will follow the patient. Thank you for allowing me to partake in his care Fall Risk Details Current Medications: Current Medications Generic Name Dose Route Start Last Admin Trade Name Freq PRN Reason Stop Dose Admin Acetaminophen 650 mg 09/03/20 23:33 09/04/20 11:24 Acetaminophen 325 Mg Tablet PO 650 mg Q6H PRN Administration Pain, Mild (Pain Scale 1-3) Albuterol Sulfate 2 puff 09/04/20 05:51 Albuterol Sulfate 90 Mcg 8 Gm Inhaler INHALE Q4H PRN Shortness Of Breath Atorvastatin Calcium 80 mg 09/04/20 21:00 09/04/20 20:04 Atorvastatin Calcium 80 Mg Tablet PO 80 mg BEDTIME MELANI Administration Docusate Sodium 100 mg 09/03/20 23:33 Docusate Sodium 100 Mg Capsule PO DAILY PRN Constipation Fluticasone/Vilanterol 1 puff 09/04/20 09:00 09/05/20 07:30 Fluticasone/Vilanterol 100/25 Blst.W.Dev INHALE 1 puff DAILY MELANI Administration Gabapentin 600 mg 09/04/20 09:00 09/05/20 08:02 Gabapentin 600 Mg Tablet PO 600 mg TID MELANI Administration Furosemide 200 mg/ Sodium 100 mls @ 5 mls/hr 09/05/20 09:30 Chloride IVCONT .Q20H MELANI 10 MG/HR Insulin Human Lispro 0 unit 09/04/20 07:30 09/05/20 08:01 Insulin Lispro 100 Unit/Ml 3 Ml Vial SUBCUT 6 unit QIDACHS [facility] Administration Protocol Metoprolol Succinate 100 mg 09/04/20 09:00 09/05/20 08:02 Metoprolol Succinate Er 100 Mg Tab.Er.24h PO 100 mg DAILY [facility] Administration Protocol Non-Formulary Medication 0 dose 09/04/20 06:00 Insulin Regular Hum U-500 Conc SUBCUT .Twice a day [facility] Oxycodone HCl 5 mg 09/04/20 00:59 09/05/20 05:46 Oxycodone Hcl Immed Release 5 Mg Tablet PO 5 mg Q6H PRN Administration Pain, Severe (Pain Scale 7-10) Rivaroxaban 20 mg 09/04/20 17:00 09/04/20 16:24 Rivaroxaban 20 Mg Tablet PO 20 mg DAILY MELANI Administration Sacubitril/Valsartan 1 tab 09/05/20 09:00 09/05/20 08:02 Sacubitril/Valsartan 1 Tab Tablet PO 1 tab BID [facility] Administration Protocol Sodium Chloride 3 ml 09/04/20 00:00 09/05/20 08:02 0.9 % Sodium Chloride Flush 3 Ml Syringe IVFLUSH Not Given QSHIFT [facility] Spironolactone 12.5 mg 09/04/20 09:45 09/05/20 08:01 Spironolactone 25 Mg Tablet PO 12.5 mg DAILY MELANI Administration Protocol Tiotropium [place] 1 puff 09/04/20 09:00 09/05/20 07:30 Tiotropium [place] 18 Mcg Cap.W.Dev INHALE 1 puff DAILY MELANI Administration Time Spent With Patient Time: Total time spent is greater than 50% in coordination of care (as documented) at patient's floor/unit and/or counseling patient: Time with patient: 25 - 35 minutes Progress Note: Quality Stroke Does the patient have a stroke diagnosis?: No Procedures Date of Service Date of Service: 09/05/20
[2020-09-05] MEDS: Rivaroxaban 20 MG TABLET PO (10:10)
[2020-09-05] MEDS: Furosemide 200 MG in 0.9 % Sodium Chloride 80 ML IVCONT (10:30)
[2020-09-05 11:14] LABS: Glucose, Whole Blood 324 mg/dL (60-115)
--- NOTE | 2020-09-05 12:05 | MHC.CM.PN ---
Per ROUNDS discussion, Patient will need a few more days on IV Lasix and is not yet medically cleared for dc to return to [facility]. CM will follow.
[2020-09-05 12:31] LABS: B Type Natriuretic Peptide 423 pg/mL (<100)
--- NOTE | 2020-09-05 12:31 | HO.PM.IMPN ---
Subjective Subjective Date of Service: 09/05/20 Interval History: seen and examined this morning reports improvement in orthopnea, dyspnea, leg edema Review of Systems Review of Systems: Yes all other systems are reviewed and are negative Constitutional Constitutional: Denies chills and Denies fever(s) Cardiovascular Cardiovascular: Denies chest pain Respiratory Respiratory: Denies cough Gastrointestinal Gastrointestinal: Denies abdominal pain Physical Exam Vital Signs: Vital Signs: Last Vital Signs Temp 96 F L 09/05/20 11:10 Pulse 89 09/05/20 11:10 Resp 22 H 09/05/20 11:10 BP 133/73 09/05/20 11:10 Pulse Ox 95 09/05/20 11:10 Body Mass Index 42.5 Const: Nutritional Appearance: well nourished HENMT: Head: Yes normocephalic and Yes atraumatic Eyes: Sclerae: sclerae normal Chest: Chest palpation & inspection: normal inspection of the chest Resp: Effort & Inspection: normal respiratory effort and no respiratory distress Cardio: Jugular venous distension: JVD Rate: regular rate Rhythm: regular rhythm GI: Palpation (GI): Soft to palpation and nontender Neuro: Cranial nerves: Yes CN's II-XII intact bilaterally and Yes Bilaterally intact EOM present Objective Data Current Medications Generic Name Dose Route Start Last Admin Trade Name Freq PRN Reason Stop Dose Admin Acetaminophen 650 mg 09/03/20 23:33 09/04/20 11:24 Acetaminophen 325 Mg Tablet PO 650 mg Q6H PRN Administration Pain, Mild (Pain Scale 1-3) Albuterol Sulfate 2 puff 09/04/20 05:51 Albuterol Sulfate 90 Mcg 8 Gm Inhaler INHALE Q4H PRN Shortness Of Breath Atorvastatin Calcium 80 mg 09/04/20 21:00 09/04/20 20:04 Atorvastatin Calcium 80 Mg Tablet PO 80 mg BEDTIME MELANI Administration Docusate Sodium 100 mg 09/03/20 23:33 Docusate Sodium 100 Mg Capsule PO DAILY PRN Constipation Fluticasone/Vilanterol 1 puff 09/04/20 09:00 09/05/20 07:30 Fluticasone/Vilanterol 100/25 Blst.W.Dev INHALE 1 puff DAILY MELANI Administration Gabapentin 600 mg 09/04/20 09:00 09/05/20 08:02 Gabapentin 600 Mg Tablet PO 600 mg TID MELANI Administration Furosemide 200 mg/ Sodium 100 mls @ 5 mls/hr 09/05/20 09:30 09/05/20 10:30 Chloride IVCONT 10 mg/hr .Q20H MELANI 5 mls/hr Administration 10 MG/HR Insulin Human Lispro 0 unit 09/04/20 07:30 09/05/20 11:43 Insulin Lispro 100 Unit/Ml 3 Ml Vial SUBCUT 8 unit QIDACHS [facility] Administration Protocol Metoprolol Succinate 100 mg 09/04/20 09:00 09/05/20 08:02 Metoprolol Succinate Er 100 Mg Tab.Er.24h PO 09/06/20 09:00 100 mg DAILY [facility] Administration Protocol Non-Formulary Medication 0 dose 09/04/20 06:00 Insulin Regular Hum U-500 Conc SUBCUT .Twice a day [facility] Oxycodone HCl 5 mg 09/04/20 00:59 09/05/20 11:46 Oxycodone Hcl Immed Release 5 Mg Tablet PO 5 mg Q6H PRN Administration Pain, Severe (Pain Scale 7-10) Rivaroxaban 20 mg 09/04/20 17:00 09/05/20 10:10 Rivaroxaban 20 Mg Tablet PO 20 mg DAILY [facility] Administration Sodium Chloride 3 ml 09/04/20 00:00 09/05/20 08:02 0.9 % Sodium Chloride Flush 3 Ml Syringe IVFLUSH Not Given QSHIFT [facility] Spironolactone 12.5 mg 09/04/20 09:45 09/05/20 08:01 Spironolactone 25 Mg Tablet PO 12.5 mg DAILY [facility] Administration Protocol Tiotropium [place] 1 puff 09/04/20 09:00 09/05/20 07:30 Tiotropium [place] 18 Mcg Cap.W.Dev INHALE 1 puff DAILY [facility] Administration Labs CBC & Chem 7: 09/05/20 06:01 09/05/20 06:01 Labs: Laboratory Results - last 24 hr 09/04/20 09/04/20 09/04/20 15:57 19:56 22:24 WBC RBC Hgb Hct MCV MCH MCHC RDW Plt Count MPV Absolute Nucleated RBC Nucleated RBC % (auto) Sodium Potassium Chloride Carbon Dioxide Anion Gap BUN Creatinine Estim Creat Clear Calc Estimated GFR POC Glucose 335 H 292 H 268 H Random Glucose Calcium B-Natriuretic Peptide 09/05/20 09/05/2009/05/21 06:01 06:01 06:01 WBC 7.0 RBC 4.54 L Hgb 12.4 L Hct 41.8 L MCV 92.1 MCH 27.3 MCHC 29.7 L RDW 16.0 Plt Count 222 MPV 10.5 Absolute Nucleated RBC 0.000 Nucleated RBC % (auto) 0.0 Sodium 139 Potassium 3.6 Chloride 96 Carbon Dioxide 35 H Anion Gap 12 BUN 17 H Creatinine 0.99 Estim Creat Clear Calc 110.0 Estimated GFR > 60 POC Glucose Random Glucose 296 H Calcium 8.2 L B-Natriuretic Peptide 301 H 09/05/20 09/05/20 09/05/20 07:02 11:09 11:34 WBC RBC Hgb Hct MCV MCH MCHC RDW Plt Count MPV Absolute Nucleated RBC Nucleated RBC % (auto) Sodium Potassium Chloride Carbon Dioxide Anion Gap BUN Creatinine Estim Creat Clear Calc Estimated GFR POC Glucose 297 H 324 H Random Glucose Calcium B-Natriuretic Peptide 423 H Quality Stroke Does the patient have a stroke diagnosis?: No VTE Prior VTE?: No VTE Risk Level:: Medical - moderate - high VTE Device Contraindication: Treatment Not Indicated VTE Drug Contraindication: N/A - Med Ordered Assessment and Plan (1) Acute exacerbation of CHF (congestive heart failure): Status: Acute Assessment and Plan: this is a 60-year-old male who presents to the hospital with weight gain, shortness of breath, lower extremity edema orthopnea PND Acute on chronic HFrEF exacerbation. orthopnea improving negative 4.5L thus far. echo done EF 20-25% has ICD - continue lasix drip (on bumex and torsemide at home) - cardiology following - increase Entresto, toprol xl, continue aldactone per cardiology recs - monitor intake and output, daily weights - bicarb trending up, follow BNP, will consider diamox if continues to increase Right leg pain. Likely secondary to edema - continue aggressive diuresis Hypertension. BP improved - continue metoprolol, Aldactone, Entresto - losartan discontinued AFib/a flutter. - continue metoprolol, Xarelto - ASA stopped Diabetes, uncontrolled on U500 regular insulin at home, he will attempt to have patient bring from home - sliding scale, ADA diet DVT prophylaxis with Xarelto Attending: Dr. Rico Full code
--- NOTE | 2020-09-05 14:53 | HE.PHANOTE ---
Patient has not gotten Regular Insulin U-500 since being admitted as it is Non-formulary and no one has brought it in. With a sliding scale, BG level have been around 300. He has only used around 28 units of sliding scale insulin in 24 hours. His insulin requirement in the hospital is not as high as it is at home most likely due to diet and lifestyle. Recommended to start Lantus 15 units in addition to the Slide Scale Humalog . Edna Fritz, PharmD
[2020-09-05 16:34] LABS: Glucose, Whole Blood 337 mg/dL (60-115)
[2020-09-05 20:31] LABS: Glucose, Whole Blood 321 mg/dL (60-115)
[2020-09-05] MEDS: Sacubitril/Valsartan 49/51 1 TAB TABLET PO (20:43)
[2020-09-05] MEDS: Atorvastatin Calcium 80 MG TABLET PO (20:44)
[2020-09-05] MEDS: 0.9 % Sodium Chloride Flush 3 ML SYRINGE IVFLUSH (20:44)
[2020-09-06] VITALS (11 sets, daily range): BP systolic 102–140; BP diastolic 57–92; PULSE 50–95; RESP 16–19; TEMP 36.1–36.6; O2SAT 77–94; BMI 41.4
[2020-09-06] MEDS: oxyCODONE HCl Immed Release 5 MG TABLET PO ×5 (00:03→22:08)
[2020-09-06 07:16] LABS: Glucose, Whole Blood 297 mg/dL (60-115)
[2020-09-06] MEDS: Furosemide 200 MG in 0.9 % Sodium Chloride 80 ML IVCONT (07:21)
[2020-09-06 07:32] LABS: Anion Gap 13 (12-20); Blood Urea Nitrogen 17 mg/dL (9-16); Calcium 8.5 mg/dL (8.4-10.2); Carbon Dioxide 34 mmol/L (22-29); Chloride 95 mmol/L (96-108); Estimated Glomerular Filt Rate > 60; Glucose Random 330 mg/dL (60-115); Potassium 3.9 mmol/L (3.3-5.1); Sodium 138 mmol/L (135-145)
[2020-09-06 07:34] LABS: B Type Natriuretic Peptide 453 pg/mL (<100)
[2020-09-06] MEDS: Fluticasone/Vilanterol 100/25 BLST.W.DEV 1 PUFF INHALE (07:45)
[2020-09-06] MEDS: Spironolactone 25 MG TABLET 12.5 MG PO ×2 (08:13→12:01)
[2020-09-06] MEDS: Metoprolol Succinate ER 100 MG TAB.ER.24H PO ×2 (08:13→20:34)
[2020-09-06] MEDS: Sacubitril/Valsartan 49/51 1 TAB TABLET PO ×2 (08:14→20:34)
[2020-09-06] MEDS: Rivaroxaban 20 MG TABLET PO (08:14)
[2020-09-06] MEDS: 0.9 % Sodium Chloride Flush 3 ML SYRINGE IVFLUSH ×2 (08:14→23:41)
[2020-09-06] MEDS: Gabapentin 600 MG TABLET PO ×3 (08:14→20:34)
[2020-09-06] MEDS: Insulin Lispro 100 UNIT/ML 3 ML VIAL SUBCUT ×7 (08:14→20:36)
--- NOTE | 2020-09-06 10:32 | HO.PM.IMPN ---
Subjective Subjective Date of Service: 09/06/20 Interval History: seen and examined this AM slowly feeling better, unable to supine was hypoxic overnight while sleeping ROS General - no fevers or chills Cardiovascular - no chest pain Respiratory - no shortness of breath or cough Abdominal- no abdominal pain, nausea, vomiting, diarrhea Physical Exam Vital Signs: Vital Signs: Last Vital Signs Temp 97 F 09/06/20 07:17 Pulse 95 09/06/20 08:13 Resp 18 09/06/20 07:17 BP 127/88 09/06/20 08:13 Pulse Ox 94 09/06/20 07:17 Body Mass Index 41.4 Const: General: cooperative and no acute distress Nutritional Appearance: well nourished Orientation/consciousness: patient oriented x3 HENMT: Head: Yes normocephalic and Yes atraumatic Eyes: General: appearance normal, both eyes and all related structures Sclerae: sclerae normal Chest: Chest palpation & inspection: normal inspection of the chest Resp: Effort & Inspection: normal respiratory effort and no respiratory distress Cardio: Jugular venous distension: JVD Rate: regular rate Rhythm: regular rhythm GI: Palpation (GI): Soft to palpation and nontender Auscultation: normal bowel sounds Skin: General skin exam: no rashes or lesions noted Neuro: General: patient oriented x3 Cranial nerves: Yes CN's II-XII intact bilaterally and Yes Bilaterally intact EOM present Cognition (Neuro): normal cognition Extrem: General: Yes normal to inspection Objective Data Current Medications Generic Name Dose Route Start Last Admin Trade Name Freq PRN Reason Stop Dose Admin Acetaminophen 650 mg 09/03/20 23:33 09/04/20 11:24 Acetaminophen 325 Mg Tablet PO 650 mg Q6H PRN Administration Pain, Mild (Pain Scale 1-3) Albuterol Sulfate 2 puff 09/04/20 05:51 Albuterol Sulfate 90 Mcg 8 Gm Inhaler INHALE Q4H PRN Shortness Of Breath Atorvastatin Calcium 80 mg 09/04/20 21:00 09/05/20 20:44 Atorvastatin Calcium 80 Mg Tablet PO 80 mg BEDTIME MELANI Administration Docusate Sodium 100 mg 09/03/20 23:33 Docusate Sodium 100 Mg Capsule PO DAILY PRN Constipation Fluticasone/Vilanterol 1 puff 09/04/20 09:00 09/06/20 07:45 Fluticasone/Vilanterol 100/25 Blst.W.Dev INHALE 1 puff DAILY MELANI Administration Gabapentin 600 mg 09/04/20 09:00 09/06/20 08:14 Gabapentin 600 Mg Tablet PO 600 mg TID MELANI Administration Furosemide 200 mg/ Sodium 100 mls @ 5 mls/hr 09/05/20 09:30 09/06/20 07:21 Chloride IVCONT 10 mg/hr .Q20H MELANI 5 mls/hr Administration 10 MG/HR Insulin Human Lispro 0 unit 09/04/20 07:30 09/06/20 08:14 Insulin Lispro 100 Unit/Ml 3 Ml Vial SUBCUT 6 unit QIDACHS [facility] Administration Protocol Metoprolol Succinate 100 mg 09/06/20 09:00 09/06/20 08:13 Metoprolol Succinate Er 100 Mg Tab.Er.24h PO 100 mg BID MELANI Administration Protocol Non-Formulary Medication 0 dose 09/04/20 06:00 Insulin Regular Hum U-500 Conc SUBCUT .Twice a day MELANI Oxycodone HCl 5 mg 09/04/20 00:59 09/06/20 06:26 Oxycodone Hcl Immed Release 5 Mg Tablet PO 5 mg Q6H PRN Administration Pain, Severe (Pain Scale 7-10) Rivaroxaban 20 mg 09/04/20 17:00 09/06/20 08:14 Rivaroxaban 20 Mg Tablet PO 20 mg DAILY MELANI Administration Sacubitril/Valsartan 1 tab 09/05/20 21:00 09/06/20 08:14 Sacubitril/Valsartan 49/51 1 Tab Tablet PO 1 tab BID [facility] Administration Protocol Sodium Chloride 3 ml 09/04/20 00:00 09/06/20 08:14 0.9 % Sodium Chloride Flush 3 Ml Syringe IVFLUSH 3 ml QSHIFT MELANI Administration Spironolactone 12.5 mg 09/04/20 09:45 09/06/20 08:13 Spironolactone 25 Mg Tablet PO 12.5 mg DAILY MELANI Administration Protocol Tiotropium [place] 1 puff 09/04/20 09:00 09/06/20 07:45 Tiotropium [place] 18 Mcg Cap.W.Dev INHALE 1 puff DAILY [facility] Administration Labs CBC & Chem 7: 09/05/20 06:01 09/06/20 05:58 Labs: Laboratory Results - last 24 hr 06/30/21 06/30/21 06/30/21 11:09 11:34 15:52 Sodium Potassium Chloride Carbon Dioxide Anion Gap BUN Creatinine Estim Creat Clear Calc Estimated GFR POC Glucose 324 H 337 H Random Glucose Calcium B-Natriuretic Peptide 423 H 09/05/20 09/06/20 09/06/20 20:01 05:58 05:58 Sodium 138 Potassium 3.9 Chloride 95 L Carbon Dioxide 34 H Anion Gap 13 BUN 17 H Creatinine 0.95 Estim Creat Clear Calc 113.0 Estimated GFR > 60 POC Glucose 321 H Random Glucose 330 H Calcium 8.5 B-Natriuretic Peptide 453 H 09/06/20 07:12 Sodium Potassium Chloride Carbon Dioxide Anion Gap BUN Creatinine Estim Creat Clear Calc Estimated GFR POC Glucose 297 H Random Glucose Calcium B-Natriuretic Peptide Quality Stroke Does the patient have a stroke diagnosis?: No VTE Prior VTE?: No VTE Risk Level:: Medical - moderate - high VTE Device Contraindication: Treatment Not Indicated VTE Drug Contraindication: N/A - Med Ordered Assessment and Plan (1) Acute exacerbation of CHF (congestive heart failure): Status: Acute Assessment and Plan: this is a 60-year-old male who presents to the hospital with weight gain, shortness of breath, lower extremity edema orthopnea PND Acute on chronic HFrEF exacerbation. orthopnea improving negative >4L thus far. echo done EF 20-25% has ICD - continue lasix drip (on bumex and torsemide at home) - cardiology following - continue Entresto, toprol xl, continue aldactone per cardiology recs - monitor intake and output, daily weights - monitor labs daily Hypoxia during sleep due to JANELL CPAP Right leg pain. Likely secondary to edema - continue aggressive diuresis Hypertension. BP improved - continue metoprolol, Aldactone, Entresto - losartan discontinued AFib/a flutter. - continue metoprolol, Xarelto - ASA stopped Diabetes, uncontrolled on U500 regular insulin at home, he will attempt to have patient bring from home - sliding scale, ADA diet Full Code
--- NOTE | 2020-09-06 11:00 | PM.PNCARD ---
Subjective Subjective Date of Service: 09/06/20 Principal diagnosis: Acute on chronic CHF, Nonischemic CMP, Pacemaker Interval history: patient is feeling better. Breathing is improved. Has diuresed overall 7 L. BNP still flat at upper 400 range. Tolerating his medications. Review of Systems Constitutional: Reports no additional constitutional complaints Cardiovascular: Reports no additional cardiovascular complaints Respiratory: Reports no additional respiratory complaints Gastrointestinal: Reports no additional gastrointestinal complaints Reports system reviewed and no additional complaints, except as documented Psychiatric: Reports no additional psychiatric complaints Endocrine: Reports no additional endocrine complaints Physical Exam Vital Signs: Last Vital Signs Temp 97 F 09/06/20 07:17 Pulse 95 09/06/20 08:13 Resp 18 09/06/20 07:17 BP 127/88 09/06/20 08:13 Pulse Ox 94 09/06/20 07:17 Body Mass Index 41.4 Const General: cooperative, comfortable, no acute distress, alert and awake Nutritional Appearance: obese Orientation/consciousness: patient oriented x3 Neck Neck: Yes trachea midline, Yes supple and Yes JVD Resp Effort & Inspection: normal respiratory effort Auscultation: clear to auscultation bilaterally Cardio Jugular venous distension: JVD Palpation: abnormal PMI displaced PMI Rate: regular rate Rhythm: regular rhythm Heart sounds: S1 normal heart sound present and S2 normal heart sound present Skin General skin exam: no rashes or lesions noted Neuro General: patient oriented x3 and no focal motor deficits Extrem General: No clubbing, No cyanosis and Yes edema Results Labs and Meds Result diagrams: 09/05/20 06:01 09/06/20 05:58 Lab results: Laboratory Results - last 24 hr 09/05/20 09/05/20 09/05/20 11:09 11:34 15:52 Sodium Potassium Chloride Carbon Dioxide Anion Gap BUN Creatinine Estim Creat Clear Calc Estimated GFR POC Glucose 324 H 337 H Random Glucose Calcium B-Natriuretic Peptide 423 H 09/05/20 09/06/20 09/06/20 20:01 05:58 05:58 Sodium 138 Potassium 3.9 Chloride 95 L Carbon Dioxide 34 H Anion Gap 13 BUN 17 H Creatinine 0.95 Estim Creat Clear Calc 113.0 Estimated GFR > 60 POC Glucose 321 H Random Glucose 330 H Calcium 8.5 B-Natriuretic Peptide 453 H 09/06/20 07:12 Sodium Potassium Chloride Carbon Dioxide Anion Gap BUN Creatinine Estim Creat Clear Calc Estimated GFR POC Glucose 297 H Random Glucose Calcium B-Natriuretic Peptide Progress Note: A&P Assessment and plan (1) Acute exacerbation of CHF (congestive heart failure): Status: Acute Assessment and Plan: Acute exacerbation of systolic heart failure. Clinically still appears to be fluid overloaded. Improving gradually. Continue IV diuresis with Lasix drip at 10 mg an hour. Continue strict intake and output chart. Continue to monitor BMP and BNP. continue current metoprolol, Entresto dose. Increase Aldactone to 25 mg daily, give additional 12.5 mg this a.m.. Heart failure education to be provided. Out of bed to chair and ambulate as possible. [employer] device is working adequately. Management was discussed in details with the patient, he shows understanding. (2) Paroxysmal atrial fibrillation: Status: Acute Assessment and Plan: Paroxysmal atrial fibrillation, currently no significant recurrence. Continue metoprolol therapy. If atrial fibrillation becomes difficult control, will pursue antiarrhythmic drug therapy to maintain rhythm and AV synchrony. Continue full oral anticoagulation with Xarelto 20 mg daily. Avoid aspirin therapy. Will follow the patient. Thank you for allowing me to partake in his care Fall Risk Details Current Medications: Current Medications Generic Name Dose Route Start Last Admin Trade Name Freq PRN Reason Stop Dose Admin Acetaminophen 650 mg 09/03/20 23:33 09/04/20 11:24 Acetaminophen 325 Mg Tablet PO 650 mg Q6H PRN Administration Pain, Mild (Pain Scale 1-3) Albuterol Sulfate 2 puff 09/04/20 05:51 Albuterol Sulfate 90 Mcg 8 Gm Inhaler INHALE Q4H PRN Shortness Of Breath Atorvastatin Calcium 80 mg 09/04/20 21:00 09/05/20 20:44 Atorvastatin Calcium 80 Mg Tablet PO 80 mg BEDTIME MELANI Administration Docusate Sodium 100 mg 09/03/20 23:33 Docusate Sodium 100 Mg Capsule PO DAILY PRN Constipation Fluticasone/Vilanterol 1 puff 09/04/20 09:00 09/06/20 07:45 Fluticasone/Vilanterol 100/25 Blst.W.Dev INHALE 1 puff DAILY MELANI Administration Gabapentin 600 mg 09/04/20 09:00 09/06/20 08:14 Gabapentin 600 Mg Tablet PO 600 mg TID MELANI Administration Furosemide 200 mg/ Sodium 100 mls @ 5 mls/hr 09/05/20 09:30 09/06/20 07:21 Chloride IVCONT 10 mg/hr .Q20H MELANI 5 mls/hr Administration 10 MG/HR Insulin Human Lispro 0 unit 09/04/20 07:30 09/06/20 08:14 Insulin Lispro 100 Unit/Ml 3 Ml Vial SUBCUT 6 unit QIDACHS MELANI Administration Protocol Metoprolol Succinate 100 mg 09/06/20 09:00 09/06/20 08:13 Metoprolol Succinate Er 100 Mg Tab.Er.24h PO 100 mg BID MELANI Administration Protocol Non-Formulary Medication 0 dose 09/04/20 06:00 Insulin Regular Hum U-500 Conc SUBCUT .Twice a day MELANI Oxycodone HCl 5 mg 09/04/20 00:59 09/06/20 06:26 Oxycodone Hcl Immed Release 5 Mg Tablet PO 5 mg Q6H PRN Administration Pain, Severe (Pain Scale 7-10) Rivaroxaban 20 mg 09/04/20 17:00 09/06/20 08:14 Rivaroxaban 20 Mg Tablet PO 20 mg DAILY MELANI Administration Sacubitril/Valsartan 1 tab 09/05/20 21:00 09/06/20 08:14 Sacubitril/Valsartan 49/51 1 Tab Tablet PO 1 tab BID [facility] Administration Protocol Sodium Chloride 3 ml 09/04/20 00:00 09/06/20 08:14 0.9 % Sodium Chloride Flush 3 Ml Syringe IVFLUSH 3 ml QSHIFT MELANI Administration Spironolactone 12.5 mg 09/04/20 09:45 09/06/20 08:13 Spironolactone 25 Mg Tablet PO 12.5 mg DAILY [facility] Administration Protocol Tiotropium [place] 1 puff 09/04/20 09:00 09/06/20 07:45 Tiotropium [place] 18 Mcg Cap.W.Dev INHALE 1 puff DAILY [facility] Administration Time Spent With Patient Time: Total time spent is greater than 50% in coordination of care (as documented) at patient's floor/unit and/or counseling patient: Time with patient: 25 - 35 minutes Progress Note: Quality Stroke Does the patient have a stroke diagnosis?: No Procedures Date of Service Date of Service: 09/06/20
[2020-09-06 11:10] LABS: Glucose, Whole Blood 375 mg/dL (60-115)
[2020-09-06 16:03] LABS: Glucose, Whole Blood 355 mg/dL (60-115)
[2020-09-06 19:51] LABS: Glucose, Whole Blood 349 mg/dL (60-115)
[2020-09-06] MEDS: Atorvastatin Calcium 80 MG TABLET PO (20:34)
[2020-09-06] MEDS: Insulin Glargine,Hum.rec.anlog 100 UNIT/ML 10 ML VIAL 15 UNIT SUBCUT (20:37)
[2020-09-07] VITALS (8 sets, daily range): BP systolic 110–134; BP diastolic 60–78; PULSE 82–96; RESP 17–20; TEMP 36.1–36.4; O2SAT 90–99; BMI 40.9
[2020-09-07] MEDS: Furosemide 200 MG in 0.9 % Sodium Chloride 80 ML IVCONT (04:01)
[2020-09-07 05:52] LABS: Anion Gap 14 (12-20); Blood Urea Nitrogen 22 mg/dL (9-16); Calcium 8.9 mg/dL (8.4-10.2); Carbon Dioxide 33 mmol/L (22-29); Chloride 96 mmol/L (96-108); Creatinine Clr Calc Pharmacy 94.2; Estimated Glomerular Filt Rate > 60; Glucose Random 183 mg/dL (60-115); Potassium 3.4 mmol/L (3.3-5.1); Sodium 140 mmol/L (135-145)
[2020-09-07] MEDS: oxyCODONE HCl Immed Release 5 MG TABLET PO ×3 (06:02→19:30)
[2020-09-07 07:04] LABS: Glucose, Whole Blood 204 mg/dL (60-115)
[2020-09-07] MEDS: Fluticasone/Vilanterol 100/25 BLST.W.DEV 1 PUFF INHALE (07:25)
[2020-09-07] MEDS: Insulin Lispro 100 UNIT/ML 3 ML VIAL SUBCUT ×8 (07:37→21:07)
[2020-09-07] MEDS: Gabapentin 600 MG TABLET PO ×3 (09:15→21:06)
[2020-09-07] MEDS: Sacubitril/Valsartan 49/51 1 TAB TABLET PO ×2 (09:15→21:06)
[2020-09-07] MEDS: Rivaroxaban 20 MG TABLET PO (09:15)
[2020-09-07] MEDS: Spironolactone 25 MG TABLET PO (09:15)
[2020-09-07] MEDS: Metoprolol Succinate ER 100 MG TAB.ER.24H PO ×2 (09:16→21:07)
--- NOTE | 2020-09-07 10:25 | P.PNCA_ITS ---
Subjective Subjective Date of Service: 09/07/20 Principal diagnosis: Acute on chronic CHF, Nonischemic CMP, Pacemaker Interval history: Ramiro is doing well. Overall as about 10 L of negative output. Breathing well. No orthopnea, PND. No palpitations. Tolerating his medications well. His creatinine had slight uptake today. Review of Systems Constitutional: Reports no additional constitutional complaints Cardiovascular: Reports no additional cardiovascular complaints Respiratory: Reports no additional respiratory complaints Genitourinary: Reports no additional male genitourinary complaints Musculoskeletal: Reports no additional musculoskeletal complaints Skin/Breast: Reports system reviewed and no additional complaints, except as docu Reports system reviewed and no additional complaints, except as documented Psychiatric: Reports no additional psychiatric complaints Physical Exam Vital Signs: Last Vital Signs Temp 97 F 09/07/20 07:22 Pulse 90 09/07/20 07:22 Resp 18 09/07/20 07:22 BP 134/75 09/07/20 07:22 Pulse Ox 98 09/07/20 07:22 Body Mass Index 40.9 Const General: cooperative, comfortable, no acute distress, alert and awake Nutritional Appearance: obese Orientation/consciousness: patient oriented x3 Limitations: no limitations Neck Neck: Yes trachea midline, Yes supple and Yes no JVD Resp Effort & Inspection: normal respiratory effort Auscultation: clear to auscultation bilaterally Cardio Palpation: abnormal PMI displaced PMI Rate: regular rate Rhythm: regular rhythm Heart sounds: S1 normal heart sound present and S2 normal heart sound present GI Auscultation: normal bowel sounds Skin General skin exam: no rashes or lesions noted Neuro General: patient oriented x3 and no focal motor deficits Extrem General: Yes no clubbing, cyanosis or edema Results Labs and Meds Result diagrams: 09/05/20 06:01 09/07/20 04:49 Lab results: Laboratory Results - last 24 hr 09/06/20 09/06/20 09/06/20 11:05 15:56 19:47 Sodium Potassium Chloride Carbon Dioxide Anion Gap BUN Creatinine Estim Creat Clear Calc Estimated GFR POC Glucose 375 H* 355 H* 349 H Random Glucose Calcium 09/07/20 09/07/20 04:49 07:00 Sodium 140 Potassium 3.4 Chloride 96 Carbon Dioxide 33 H Anion Gap 14 BUN 22 H Creatinine 1.14 Estim Creat Clear Calc 94.2 Estimated GFR > 60 POC Glucose 204 H Random Glucose 183 H D Calcium 8.9 Progress Note: A&P Assessment and plan (1) Acute on chronic systolic heart failure: Status: Acute Assessment and Plan: patient feeling and looking very well. Switch to oral diuretics with Bumex 2 mg b.i.d.. CHF education needs to be provided for fluid management. Weighing scale is important to be provided to the patient. This was discussed with him. He grace diuretics at home if he has sudden weight gain was discussed. Avoid high salt diet. Daily weight monitoring is important as well. Continue current neurohormonal modulation with metoprolol, Entresto and Aldactone therapy. As outpatient will possibly add SGLT2 inhibitors as noted in recent trials. Ambulate today. If doing well, potential discharge for tomorrow. Check BNP today. (2) Paroxysmal atrial fibrillation: Status: Acute Assessment and Plan: Paroxysmal atrial fibrillation, suppressed. Continue metoprolol therapy. Continue full oral anticoagulation, currently on Xarelto 20 mg daily. Discontinue aspirin to reduce bleeding risk. Will follow up tomorrow. Thank you for allowing me to partake in his care Fall Risk Details Current Medications: Current Medications Generic Name Dose Route Start Last Admin Trade Name Freq PRN Reason Stop Dose Admin Acetaminophen 650 mg 09/03/20 23:33 09/04/20 11:24 Acetaminophen 325 Mg Tablet PO 650 mg Q6H PRN Administration Pain, Mild (Pain Scale 1-3) Albuterol Sulfate 2 puff 09/04/20 05:51 Albuterol Sulfate 90 Mcg 8 Gm Inhaler INHALE Q4H PRN Shortness Of Breath Atorvastatin Calcium 80 mg 09/04/20 21:00 09/06/20 20:34 Atorvastatin Calcium 80 Mg Tablet PO 80 mg BEDTIME MELANI Administration Docusate Sodium 100 mg 09/03/20 23:33 Docusate Sodium 100 Mg Capsule PO DAILY PRN Constipation Fluticasone/Vilanterol 1 puff 09/04/20 09:00 09/07/20 07:25 Fluticasone/Vilanterol 100/25 Blst.W.Dev INHALE 1 puff DAILY MELANI Administration Gabapentin 600 mg 09/04/20 09:00 09/07/20 09:15 Gabapentin 600 Mg Tablet PO 600 mg TID MELANI Administration Furosemide 200 mg/ Sodium 100 mls @ 5 mls/hr 09/05/20 09:30 09/07/20 04:01 Chloride IVCONT 10 mg/hr .Q20H MELANI 5 mls/hr Administration 10 MG/HR Insulin Glargine 15 unit 09/06/20 21:00 09/06/20 20:37 Insulin Glargine,Hum.Rec.Anlog 100 Unit/Ml 10 Ml Vial SUBCUT 15 unit BEDTIME MELANI Administration Insulin Human Lispro 0 unit 09/04/20 07:30 09/07/20 07:37 Insulin Lispro 100 Unit/Ml 3 Ml Vial SUBCUT 4 unit QIDAS [facility] Administration Protocol Insulin Human Lispro 5 unit 09/06/20 16:30 09/07/20 07:37 Insulin Lispro 100 Unit/Ml 3 Ml Vial SUBCUT 5 unit QIDAS [facility] Administration Metoprolol Succinate 100 mg 09/06/20 09:00 09/07/20 09:16 Metoprolol Succinate Er 100 Mg Tab.Er.24h PO 100 mg BID [facility] Administration Protocol Oxycodone HCl 5 mg 09/04/20 00:59 09/07/20 06:02 Oxycodone Hcl Immed Release 5 Mg Tablet PO 5 mg Q6H PRN Administration Pain, Severe (Pain Scale 7-10) Rivaroxaban 20 mg 09/04/20 17:00 09/07/20 09:15 Rivaroxaban 20 Mg Tablet PO 20 mg DAILY [facility] Administration Sacubitril/Valsartan 1 tab 09/05/20 21:00 09/07/20 09:15 Sacubitril/Valsartan 49/51 1 Tab Tablet PO 1 tab BID [facility] Administration Protocol Sodium Chloride 3 ml 09/04/20 00:00 09/07/20 07:37 0.9 % Sodium Chloride Flush 3 Ml Syringe IVFLUSH Not Given QSHIFT [facility] Spironolactone 25 mg 09/07/20 09:00 09/07/20 09:15 Spironolactone 25 Mg Tablet PO 25 mg DAILY [facility] Administration Protocol Tiotropium [place] 1 puff 09/04/20 09:00 09/07/20 07:25 Tiotropium [place] 18 Mcg Cap.W.Dev INHALE 1 puff DAILY [facility] Administration Time Spent With Patient Time: Total time spent is greater than 50% in coordination of care (as documented) at patient's floor/unit and/or counseling patient: Time with patient: 25 - 35 minutes Progress Note: Quality Stroke Does the patient have a stroke diagnosis?: No Procedures Date of Service Date of Service: 09/07/20
--- NOTE | 2020-09-07 10:34 | HO.PM.IMPN ---
Subjective Subjective Date of Service: 09/07/20 Interval History: seen and examined this AM slowly improving ROS General - no fevers or chills Cardiovascular - no chest pain Respiratory - no shortness of breath or cough Abdominal- no abdominal pain, nausea, vomiting, diarrhea Physical Exam Vital Signs: Vital Signs: Last Vital Signs Temp 97 F 09/07/20 07:22 Pulse 90 09/07/20 07:22 Resp 18 09/07/20 07:22 BP 134/75 09/07/20 07:22 Pulse Ox 98 09/07/20 07:22 Body Mass Index 40.9 Const: General: cooperative and no acute distress Nutritional Appearance: well nourished Orientation/consciousness: patient oriented x3 HENMT: Head: Yes normocephalic and Yes atraumatic Eyes: General: appearance normal, both eyes and all related structures Sclerae: sclerae normal Chest: Chest palpation & inspection: normal inspection of the chest Resp: Effort & Inspection: normal respiratory effort and no respiratory distress Cardio: Jugular venous distension: JVD Rate: regular rate Rhythm: regular rhythm GI: Palpation (GI): Soft to palpation and nontender Auscultation: normal bowel sounds Skin: General skin exam: no rashes or lesions noted Neuro: General: patient oriented x3 Cranial nerves: Yes CN's II-XII intact bilaterally and Yes Bilaterally intact EOM present Cognition (Neuro): normal cognition Extrem: General: Yes normal to inspection Objective Data Current Medications Generic Name Dose Route Start Last Admin Trade Name Freq PRN Reason Stop Dose Admin Acetaminophen 650 mg 09/03/20 23:33 09/04/20 11:24 Acetaminophen 325 Mg Tablet PO 650 mg Q6H PRN Administration Pain, Mild (Pain Scale 1-3) Albuterol Sulfate 2 puff 09/04/20 05:51 Albuterol Sulfate 90 Mcg 8 Gm Inhaler INHALE Q4H PRN Shortness Of Breath Atorvastatin Calcium 80 mg 09/04/20 21:00 09/06/20 20:34 Atorvastatin Calcium 80 Mg Tablet PO 80 mg BEDTIME MELANI Administration Bumetanide 2 mg 09/07/20 10:45 Bumetanide 1 Mg Tablet PO BID@0800,1700 [facility] Protocol Docusate Sodium 100 mg 09/03/20 23:33 Docusate Sodium 100 Mg Capsule PO DAILY PRN Constipation Fluticasone/Vilanterol 1 puff 09/04/20 09:00 09/07/20 07:25 Fluticasone/Vilanterol 100/25 Blst.W.Dev INHALE 1 puff DAILY MELANI Administration Gabapentin 600 mg 09/04/20 09:00 09/07/20 09:15 Gabapentin 600 Mg Tablet PO 600 mg TID MELANI Administration Insulin Glargine 15 unit 09/06/20 21:00 09/06/20 20:37 Insulin Glargine,Hum.Rec.Anlog 100 Unit/Ml 10 Ml Vial SUBCUT 15 unit BEDTIME MELANI Administration Insulin Human Lispro 0 unit 09/04/20 07:30 09/07/20 07:37 Insulin Lispro 100 Unit/Ml 3 Ml Vial SUBCUT 4 unit QIDACHS [facility] Administration Protocol Insulin Human Lispro 5 unit 09/06/20 16:30 09/07/20 07:37 Insulin Lispro 100 Unit/Ml 3 Ml Vial SUBCUT 5 unit QIDACHS [facility] Administration Metoprolol Succinate 100 mg 09/06/20 09:00 09/07/20 09:16 Metoprolol Succinate Er 100 Mg Tab.Er.24h PO 100 mg BID [facility] Administration Protocol Oxycodone HCl 5 mg 09/04/20 00:59 09/07/20 06:02 Oxycodone Hcl Immed Release 5 Mg Tablet PO 5 mg Q6H PRN Administration Pain, Severe (Pain Scale 7-10) Rivaroxaban 20 mg 09/04/20 17:00 09/07/20 09:15 Rivaroxaban 20 Mg Tablet PO 20 mg DAILY [facility] Administration Sacubitril/Valsartan 1 tab 09/05/20 21:00 09/07/20 09:15 Sacubitril/Valsartan 49/51 1 Tab Tablet PO 1 tab BID [facility] Administration Protocol Sodium Chloride 3 ml 09/04/20 00:00 09/07/20 07:37 0.9 % Sodium Chloride Flush 3 Ml Syringe IVFLUSH Not Given QSHIFT [facility] Spironolactone 25 mg 09/07/20 09:00 09/07/20 09:15 Spironolactone 25 Mg Tablet PO 25 mg DAILY [facility] Administration Protocol Tiotropium [place] 1 puff 09/04/20 09:00 09/07/20 07:25 Tiotropium [place] 18 Mcg Cap.W.Dev INHALE 1 puff DAILY [facility] Administration Labs CBC & Chem 7: 09/05/20 06:01 09/07/20 04:49 Labs: Laboratory Results - last 24 hr 09/06/20 09/06/20 09/06/20 11:05 15:56 19:47 Sodium Potassium Chloride Carbon Dioxide Anion Gap BUN Creatinine Estim Creat Clear Calc Estimated GFR POC Glucose 375 H* 355 H* 349 H Random Glucose Calcium 09/07/20 09/07/20 04:49 07:00 Sodium 140 Potassium 3.4 Chloride 96 Carbon Dioxide 33 H Anion Gap 14 BUN 22 H Creatinine 1.14 Estim Creat Clear Calc 94.2 Estimated GFR > 60 POC Glucose 204 H Random Glucose 183 H D Calcium 8.9 Quality Stroke Does the patient have a stroke diagnosis?: No VTE Prior VTE?: No VTE Risk Level:: Medical - moderate - high VTE Device Contraindication: Treatment Not Indicated VTE Drug Contraindication: N/A - Med Ordered Assessment and Plan (1) Acute exacerbation of CHF (congestive heart failure): Status: Acute Assessment and Plan: this is a 60-year-old male who presents to the hospital with weight gain, shortness of breath, lower extremity edema orthopnea PND Acute on chronic HFrEF exacerbation. orthopnea improving negative >9L thus far. echo done EF 20-25% has ICD transition to oral bumex 2mg bid today and assess output, if stable -- plan for d/c tomorrow trend bnp Hypoxia during sleep due to JANELL CPAP Right leg pain. Likely secondary to edema resolved Hypertension. BP improved - continue metoprolol, Aldactone, Entresto - losartan discontinued AFib/a flutter. - continue metoprolol, Xarelto - ASA stopped Diabetes, uncontrolled latnus + sliding scale here Full Code DVT pptx, Xarelto
--- NOTE | 2020-09-07 10:53 | MHC.CM.PN ---
Per ROUNDS discussion, Patient is likely going to be dc tomorrow(still requiring IV Lasix) and will benefit from VNA for CHF Management. CM will, follow for possible need to adjust the dc plan.
[2020-09-07 11:03] LABS: Glucose, Whole Blood 297 mg/dL (60-115)
[2020-09-07] MEDS: Bumetanide 1 MG TABLET 2 MG PO ×2 (11:29→16:23)
[2020-09-07 13:23] LABS: B Type Natriuretic Peptide 239 pg/mL (<100)
[2020-09-07] MEDS: Artificial Tears 15 ML DROPS 1 DROP EYE-BOTH (14:23)
[2020-09-07 16:10] LABS: Glucose, Whole Blood 332 mg/dL (60-115)
[2020-09-07] MEDS: 0.9 % Sodium Chloride Flush 3 ML SYRINGE IVFLUSH ×2 (16:22→21:08)
[2020-09-07 20:00] LABS: Glucose, Whole Blood 318 mg/dL (60-115)
[2020-09-07] MEDS: Atorvastatin Calcium 80 MG TABLET PO (21:07)
[2020-09-07] MEDS: Insulin Glargine,Hum.rec.anlog 100 UNIT/ML 10 ML VIAL 15 UNIT SUBCUT (21:08)
[2020-09-08] VITALS (9 sets, daily range): BP systolic 107–144; BP diastolic 57–83; PULSE 44–98; RESP 16–20; TEMP 36.1–37.2; O2SAT 85–98; BMI 40.7
[2020-09-08] MEDS: oxyCODONE HCl Immed Release 5 MG TABLET PO ×4 (00:41→20:59)
[2020-09-08 07:20] LABS: Anion Gap 19 (12-20); Blood Urea Nitrogen 25 mg/dL (9-16); Calcium 8.7 mg/dL (8.4-10.2); Carbon Dioxide 28 mmol/L (22-29); Chloride 95 mmol/L (96-108); Creatinine Clr Calc Pharmacy 103.2; Estimated Glomerular Filt Rate > 60; Glucose Random 307 mg/dL (60-115); Potassium 3.6 mmol/L (3.3-5.1); Sodium 138 mmol/L (135-145)
[2020-09-08 07:20] LABS: Glucose, Whole Blood 317 mg/dL (60-115)
[2020-09-08] MEDS: Insulin Lispro 100 UNIT/ML 3 ML VIAL SUBCUT ×8 (07:28→20:59)
[2020-09-08] MEDS: Fluticasone/Vilanterol 100/25 BLST.W.DEV 1 PUFF INHALE (07:39)
[2020-09-08] MEDS: 0.9 % Sodium Chloride Flush 3 ML SYRINGE IVFLUSH ×2 (09:10→15:39)
[2020-09-08] MEDS: Bumetanide 1 MG TABLET 2 MG PO ×2 (09:10→16:30)
[2020-09-08] MEDS: Sacubitril/Valsartan 49/51 1 TAB TABLET PO ×2 (09:11→20:59)
[2020-09-08] MEDS: Spironolactone 25 MG TABLET PO (09:11)
[2020-09-08] MEDS: Docusate Sodium 100 MG CAPSULE PO (09:11)
[2020-09-08] MEDS: Metoprolol Succinate ER 100 MG TAB.ER.24H PO ×2 (09:11→20:59)
[2020-09-08] MEDS: Rivaroxaban 20 MG TABLET PO (09:11)
[2020-09-08] MEDS: Gabapentin 600 MG TABLET PO ×3 (09:11→20:59)
--- NOTE | 2020-09-08 09:23 | PC.NURSE ---
PT SITTING UP AT EDGE OF BED, A/O. O2 SAT ON ROOM AIR LOW 80'S AND DIPPED TO 79%. PLACED BACK ON 2L NC WITH O2 SATS IMPROVED TO 92%. [place] CABALLERO AWARE. WILL CONTINUE TO MONITOR
[2020-09-08] MEDS: iohexoL 350 MG/ML 100 ML INFUS..BTL IV (11:11)
[2020-09-08 11:21] LABS: Glucose, Whole Blood 314 mg/dL (60-115)
--- NOTE | 2020-09-08 12:53 | PM.PNCARD ---
Subjective Subjective Date of Service: 09/08/20 Principal diagnosis: Acute on chronic CHF, Nonischemic CMP, Pacemaker Interval history: patient developed overnight hypoxia. CTA of chest done to rule out pulmonary embolism shows no pulmonary embolism but shows diffuse ground-glass opacities of unclear significance. Since hospitalization has been diuresed 10 L. there is no worsening leg edema. Overall he does not have new symptoms. Tolerating new medications w Review of Systems Constitutional: Reports no additional constitutional complaints Cardiovascular: Reports no additional cardiovascular complaints Respiratory: Reports no additional respiratory complaints Gastrointestinal: Reports no additional gastrointestinal complaints Reports system reviewed and no additional complaints, except as documented Psychiatric: Reports no additional psychiatric complaints Hematologic/Lymphatic: Reports no additional hematologic/lymphatic complaints Physical Exam Vital Signs: Last Vital Signs Temp 96.9 F 09/08/20 11:57 Pulse 87 09/08/20 11:57 Resp 20 09/08/20 11:57 BP 108/60 09/08/20 11:57 Pulse Ox 96 09/08/20 11:57 Body Mass Index 40.7 Const General: cooperative, comfortable, no acute distress, alert and awake Nutritional Appearance: obese Orientation/consciousness: patient oriented x3 Limitations: no limitations Neck Neck: Yes trachea midline, Yes supple and Yes no JVD Resp Effort & Inspection: normal respiratory effort Auscultation: clear to auscultation bilaterally Cardio Palpation: abnormal PMI displaced PMI Rate: regular rate Rhythm: regular rhythm Heart sounds: S1 normal heart sound present and S2 normal heart sound present GI Auscultation: normal bowel sounds Skin General skin exam: no rashes or lesions noted Neuro General: patient oriented x3 Extrem General: Yes no clubbing, cyanosis or edema Results Labs and Meds Result diagrams: 09/05/20 06:01 09/08/20 05:36 Lab results: Laboratory Results - last 24 hr 09/07/20 09/07/20 09/07/20 12:26 16:07 19:52 Sodium Potassium Chloride Carbon Dioxide Anion Gap BUN Creatinine Estim Creat Clear Calc Estimated GFR POC Glucose 332 H 318 H Random Glucose Calcium B-Natriuretic Peptide 239 H 09/08/20 09/08/20 09/08/20 05:36 07:14 11:13 Sodium 138 Potassium 3.6 Chloride 95 L Carbon Dioxide 28 Anion Gap 19 BUN 25 H Creatinine 1.03 Estim Creat Clear Calc 103.2 Estimated GFR > 60 POC Glucose 317 H 314 H Random Glucose 307 H D Calcium 8.7 B-Natriuretic Peptide Imaging Radiologist's impression: Impressions Chest CTA 09/08/20 11:00 IMPRESSION: 1. No CT evidence of pulmonary embolism is present. 2. Subtle multilobar patchy groundglass airspace disease is present bilaterally, may represent subtle edema versus infectious, inflammatory process. VTE: Negative. Progress Note: A&P Assessment and plan (1) Acute on chronic systolic heart failure: Status: Acute Assessment and Plan: patient present with decompensated congestive heart failure. Has been diuresed 10 L. BNP is down trended. Clinically volume status has improved significantly. Unlikely he has persistent hypoxemia appears to be due to heart failure however this is difficult to assess due to his body habitus. May benefit with CardioMEMS device as outpatient. Continue current oral Bumex 2 mg b.i.d.. CHF education. Continue with neurohormonal modulation with metoprolol, Entresto as well as Aldactone therapy. Will follow the patient. Continue CPAP therapy. (2) Paroxysmal atrial fibrillation: Status: Acute Assessment and Plan: Paroxysmal atrial fibrillation has remained suppressed. Continue metoprolol therapy. Continue full oral anticoagulation, currently on Xarelto 20 mg daily. Continue CPAP therapy. (3) Biventricular ICD (implantable cardioverter-defibrillator) in place: Status: Acute Assessment and Plan: Biventricular ICD in place, working well. (4) Hypoxia: Status: Acute Assessment and Plan: Persistent hypoxemia of unclear etiology. Does have persistent ground-glass opacities question inflammatory lung issues. Should consider pulmonary consultation. May require home oxygen therapy based on further evaluation. Continue CHF management as above. Fall Risk Details Current Medications: Current Medications Generic Name Dose Route Start Last Admin Trade Name Freq PRN Reason Stop Dose Admin Acetaminophen 650 mg 09/03/20 23:33 09/04/20 11:24 Acetaminophen 325 Mg Tablet PO 650 mg Q6H PRN Administration Pain, Mild (Pain Scale 1-3) Albuterol Sulfate 2 puff 09/04/20 05:51 Albuterol Sulfate 90 Mcg 8 Gm Inhaler INHALE Q4H PRN Shortness Of Breath Artificial Tears 1 drop 09/07/20 13:00 09/07/20 14:23 Artificial Tears 15 Ml Drops EYE-BOTH 1 drop Q4H PRN Administration Dry Eyes Atorvastatin Calcium 80 mg 09/04/20 21:00 09/07/20 21:07 Atorvastatin Calcium 80 Mg Tablet PO 80 mg BEDTIME MELANI Administration Bumetanide 2 mg 09/07/20 10:45 09/08/20 09:10 Bumetanide 1 Mg Tablet PO 2 mg BID@0800,1700 [facility] Administration Protocol Docusate Sodium 100 mg 09/03/20 23:33 09/08/20 09:11 Docusate Sodium 100 Mg Capsule PO 100 mg DAILY PRN Administration Constipation Fluticasone/Vilanterol 1 puff 09/04/20 09:00 09/08/20 07:39 Fluticasone/Vilanterol 100/25 Blst.W.Dev INHALE 1 puff DAILY MELANI Administration Gabapentin 600 mg 09/04/20 09:00 09/08/20 09:11 Gabapentin 600 Mg Tablet PO 600 mg TID MELANI Administration Insulin Glargine 15 unit 09/06/20 21:00 09/07/20 21:08 Insulin Glargine,Hum.Rec.Anlog 100 Unit/Ml 10 Ml Vial SUBCUT 15 unit BEDTIME MELANI Administration Insulin Human Lispro 0 unit 09/04/20 07:30 09/08/20 11:27 Insulin Lispro 100 Unit/Ml 3 Ml Vial SUBCUT 8 unit QIDACHS [facility] Administration Protocol Insulin Human Lispro 5 unit 09/06/20 16:30 09/08/20 11:28 Insulin Lispro 100 Unit/Ml 3 Ml Vial SUBCUT 5 unit QIDACHS [facility] Administration Metoprolol Succinate 100 mg 09/06/20 09:00 09/08/20 09:11 Metoprolol Succinate Er 100 Mg Tab.Er.24h PO 100 mg BID MELANI Administration Protocol Oxycodone HCl 5 mg 09/04/20 00:59 09/08/20 07:27 Oxycodone Hcl Immed Release 5 Mg Tablet PO 5 mg Q6H PRN Administration Pain, Severe (Pain Scale 7-10) Rivaroxaban 20 mg 09/04/20 17:00 09/08/20 09:11 Rivaroxaban 20 Mg Tablet PO 20 mg DAILY MELANI Administration Sacubitril/Valsartan 1 tab 09/05/20 21:00 09/08/20 09:11 Sacubitril/Valsartan 49/51 1 Tab Tablet PO 1 tab BID MELANI Administration Protocol Sodium Chloride 3 ml 09/04/20 00:00 09/08/20 09:10 0.9 % Sodium Chloride Flush 3 Ml Syringe IVFLUSH 3 ml QSHIFT MELANI Administration Spironolactone 25 mg 09/07/20 09:00 09/08/20 09:11 Spironolactone 25 Mg Tablet PO 25 mg DAILY MELANI Administration Protocol Tiotropium [place] 1 puff 09/04/20 09:00 09/08/20 07:39 Tiotropium [place] 18 Mcg Cap.W.Dev INHALE 1 puff DAILY MELANI Administration Time Spent With Patient Time: Total time spent is greater than 50% in coordination of care (as documented) at patient's floor/unit and/or counseling patient: Time with patient: 25 - 35 minutes Progress Note: Quality Stroke Does the patient have a stroke diagnosis?: No Procedures Date of Service Date of Service: 09/08/20
--- NOTE | 2020-09-08 14:28 | P.PNIM_ITS ---
Subjective Subjective Date of Service: 09/08/20 <ADA Garay - Last Filed: 09/08/20 14:35> 09/08/20 <Fredrick Frank MD - Last Filed: 09/08/20 14:42> Interval History: seen and examined this morning. denies shortness of breath, orthopnea or PND <ADA Garay - Last Filed: 09/08/20 14:35> Review of Systems Review of Systems: Yes all other systems are reviewed and are negative <ADA Garay - Last Filed: 09/08/20 14:35> Constitutional Constitutional: Denies chills and Denies fever(s) <ADA Garay - Last Filed: 09/08/20 14:35> Cardiovascular Cardiovascular: Denies chest pain <ADA Garay - Last Filed: 09/08/20 14:35> Respiratory Respiratory: Denies cough <ADA Garay - Last Filed: 09/08/20 14:35> Gastrointestinal Gastrointestinal: Denies abdominal pain <ADA Garay - Last Filed: 09/08/20 14:35> Physical Exam Vital Signs: Vital Signs: Last Vital Signs Temp 96.9 F 09/08/20 11:57 Pulse 87 09/08/20 11:57 Resp 20 09/08/20 11:57 BP 108/60 09/08/20 11:57 Pulse Ox 96 09/08/20 11:57 Body Mass Index 40.7 <ADA Garay - Last Filed: 09/08/20 14:35> Const: General: comfortable, no acute distress, alert and awake <ADA Garay - Last Filed: 09/08/20 14:35> Nutritional Appearance: well nourished <ADA Garay - Last Filed: 09/08/20 14:35> HENMT: Head: Yes normocephalic and Yes atraumatic <ADA Garay - Last Filed: 09/08/20 14:35> Eyes: Sclerae: sclerae normal <ADA Garay - Last Filed: 09/08/20 14:35> Chest: Chest palpation & inspection: normal inspection of the chest <ADA Garay - Last Filed: 09/08/20 14:35> Resp: Effort & Inspection: normal respiratory effort and no respiratory distress <ADA Garay - Last Filed: 09/08/20 14:35> Cardio: Jugular venous distension: no JVD <ADA Garay - Last Filed: 09/08/20 14:35> Rate: regular rate <ADA Garay - Last Filed: 09/08/20 14:35> Rhythm: regular rhythm <ADA Garay - Last Filed: 09/08/20 14:35> GI: Inspection: Yes obesity <ADA Garay - Last Filed: 09/08/20 14:35> Palpation (GI): Soft to palpation and nontender <ADA Garay - Last Filed: 09/08/20 14:35> Neuro: Cranial nerves: Yes CN's II-XII intact bilaterally and Yes Bilaterally intact EOM present <ADA Garay Last Filed: 09/08/20 14:35> Extrem: General: Yes normal to inspection <ADA Garay - Last Filed: 09/08/20 14:35> Objective Data Current Medications Generic Name Dose Route Start Last Admin Trade Name Freq PRN Reason Stop Dose Admin Acetaminophen 650 mg 09/03/20 23:33 09/04/20 11:24 Acetaminophen 325 Mg Tablet PO 650 mg Q6H PRN Administration Pain, Mild (Pain Scale 1-3) Albuterol Sulfate 2 puff 09/04/20 05:51 Albuterol Sulfate 90 Mcg 8 Gm Inhaler INHALE Q4H PRN Shortness Of Breath Artificial Tears 1 drop 09/07/20 13:00 09/07/20 14:23 Artificial Tears 15 Ml Drops EYE-BOTH 1 drop Q4H PRN Administration Dry Eyes Atorvastatin Calcium 80 mg 09/04/20 21:00 09/07/20 21:07 Atorvastatin Calcium 80 Mg Tablet PO 80 mg BEDTIME MELANI Administration Bumetanide 2 mg 09/07/20 10:45 09/08/20 09:10 Bumetanide 1 Mg Tablet PO 2 mg BID@0800,1700 [facility] Administration Protocol Docusate Sodium 100 mg 09/03/20 23:33 09/08/20 09:11 Docusate Sodium 100 Mg Capsule PO 100 mg DAILY PRN Administration Constipation Fluticasone/Vilanterol 1 puff 09/04/20 09:00 09/08/20 07:39 Fluticasone/Vilanterol 100/25 Blst.W.Dev INHALE 1 puff DAILY MELANI Administration Gabapentin 600 mg 09/04/20 09:00 09/08/20 14:08 Gabapentin 600 Mg Tablet PO 600 mg TID MELANI Administration Insulin Glargine 15 unit 09/06/20 21:00 09/07/20 21:08 Insulin Glargine,Hum.Rec.Anlog 100 Unit/Ml 10 Ml Vial SUBCUT 15 unit BEDTIME MELANI Administration Insulin Human Lispro 0 unit 09/04/20 07:30 09/08/20 11:27 Insulin Lispro 100 Unit/Ml 3 Ml Vial SUBCUT 8 unit QIDACHS [facility] Administration Protocol Insulin Human Lispro 5 unit 09/06/20 16:30 09/08/20 11:28 Insulin Lispro 100 Unit/Ml 3 Ml Vial SUBCUT 5 unit QIDACHS MELANI Administration Metoprolol Succinate 100 mg 09/06/20 09:00 09/08/20 09:11 Metoprolol Succinate Er 100 Mg Tab.Er.24h PO 100 mg BID [facility] Administration Protocol Rivaroxaban 20 mg 09/04/20 17:00 09/08/20 09:11 Rivaroxaban 20 Mg Tablet PO 20 mg DAILY MELANI Administration Sacubitril/Valsartan 1 tab 09/05/20 21:00 09/08/20 09:11 Sacubitril/Valsartan 49/51 1 Tab Tablet PO 1 tab BID [facility] Administration Protocol Sodium Chloride 3 ml 09/04/20 00:00 09/08/20 09:10 0.9 % Sodium Chloride Flush 3 Ml Syringe IVFLUSH 3 ml QSHIFT [facility] Administration Spironolactone 25 mg 09/07/20 09:00 09/08/20 09:11 Spironolactone 25 Mg Tablet PO 25 mg DAILY MELANI Administration Protocol Tiotropium [place] 1 puff 09/04/20 09:00 09/08/20 07:39 Tiotropium [place] 18 Mcg Cap.W.Dev INHALE 1 puff DAILY MELANI Administration <ADA Garay - Last Filed: 09/08/20 14:35> Labs CBC & Chem 7: : 09/05/20 06:01 09/08/20 05:36 <ADA Garay - Last Filed: 09/08/20 14:35> Labs: Laboratory Results - last 24 hr 09/07/20 09/07/20 09/08/20 16:07 19:52 05:36 Sodium 138 Potassium 3.6 Chloride 95 L Carbon Dioxide 28 Anion Gap 19 BUN 25 H Creatinine 1.03 Estim Creat Clear Calc 103.2 Estimated GFR > 60 POC Glucose 332 H 318 H Random Glucose 307 H D Calcium 8.7 09/08/20 09/08/20 07:14 11:13 Sodium Potassium Chloride Carbon Dioxide Anion Gap BUN Creatinine Estim Creat Clear Calc Estimated GFR POC Glucose 317 H 314 H Random Glucose Calcium <ADA Garay - Last Filed: 09/08/20 14:35> Quality Stroke Does the patient have a stroke diagnosis?: No <ADA Garay - Last Filed: 09/08/20 14:35> VTE Prior VTE?: No <ADA Garay - Last Filed: 09/08/20 14:35> VTE Risk Level:: Medical - moderate - high <ADA Garay - Last Filed: 09/08/20 14:35> VTE Device Contraindication: Treatment Not Indicated <ADA Garay - Last Filed: 09/08/20 14:35> VTE Drug Contraindication: N/A - Med Ordered <ADA Garay - Last Filed: 09/08/20 14:35> Assessment and Plan (1) Acute exacerbation of CHF (congestive heart failure): Status: Acute <ADA Garay - Last Filed: 09/08/20 14:35> Assessment and Plan: this is a 60-year-old male who presents to the hospital with weight gain, shortness of breath, lower extremity edema orthopnea PND Acute on chronic HFrEF exacerbation. orthopnea improving negative >10L thus far. echo done EF 20-25% has ICD -continue oral bumex 2mg bid Hypoxia likely due to JANELL and obesity hypoventilation CTA neg for PE but showing some nonspecific ground glass opacities. not likely r/t chf as pt has already diuresed 10 L home o2 eval negative -continue CPAP -overnight oximetry test for ? supplemental o2 with cpap -pulmonary consult Right leg pain. Likely secondary to edema resolved Hypertension. BP improved - continue metoprolol, Aldactone, Entresto - losartan discontinued AFib/a flutter. - continue metoprolol, Xarelto - ASA stopped Diabetes, uncontrolled latnus + sliding scale here Morbid obesity. BMI 40.7 Likely causing component of obesity hypoventilation and contributing to intermittent hypoxia Full Code DVT pptx, Dana Attending: Dr. Frank <ADA Garay - Last Filed: 09/08/20 14:35>
[2020-09-08 16:19] LABS: Glucose, Whole Blood 261 mg/dL (60-115)
[2020-09-08 20:32] LABS: Glucose, Whole Blood 294 mg/dL (60-115)
[2020-09-08] MEDS: Insulin Glargine,Hum.rec.anlog 100 UNIT/ML 10 ML VIAL 15 UNIT SUBCUT (20:59)
[2020-09-08] MEDS: Atorvastatin Calcium 80 MG TABLET PO (20:59)
--- NOTE | 2020-09-08 22:04 | PC.NURSE ---
pt had brief episode of O2 saturation dropping to 86% RA while walking back from bathroom. patient put back on 2L o2 and instructed to deep breathe. no c/o light headedness, sob, or dizziness. Once back on o2 his o2 saturation came back up to 93%. pt refuses to use portable o2 when going to bathroom/ambulating
[2020-09-09] MEDS: 0.9 % Sodium Chloride Flush 3 ML SYRINGE IVFLUSH ×2 (01:14→08:04)
[2020-09-09] MEDS: oxyCODONE HCl Immed Release 5 MG TABLET PO ×3 (01:49→10:49)
[2020-09-09 03:44] VITALS: BP 148/72; PULSE 81; RESP 20; TEMP 36.4; O2SAT 96
[2020-09-09 05:49] VITALS: BMI 40.4
[2020-09-09 07:09] LABS: Glucose, Whole Blood 312 mg/dL (60-115)
[2020-09-09 07:21] VITALS: BP 156/86; PULSE 93; RESP 18; TEMP 36.1; O2SAT 94
[2020-09-09] MEDS: Bumetanide 1 MG TABLET 2 MG PO (08:01)
[2020-09-09] MEDS: Rivaroxaban 20 MG TABLET PO (08:01)
[2020-09-09 08:02] VITALS: BP 156/86; PULSE 93
[2020-09-09] MEDS: Sacubitril/Valsartan 49/51 1 TAB TABLET PO (08:02)
[2020-09-09] MEDS: Metoprolol Succinate ER 100 MG TAB.ER.24H PO (08:02)
[2020-09-09] MEDS: Spironolactone 25 MG TABLET PO (08:02)
[2020-09-09] MEDS: Insulin Lispro 100 UNIT/ML 3 ML VIAL SUBCUT ×4 (08:02→12:02)
[2020-09-09] MEDS: Gabapentin 600 MG TABLET PO (08:02)
[2020-09-09] MEDS: Fluticasone/Vilanterol 100/25 BLST.W.DEV 1 PUFF INHALE (08:03)
--- NOTE | 2020-09-09 09:41 | PM.EVENT ---
Event Note Date of Service: 09/09/20 Event Note: Pulmonary Note : I reviewed the Chart , H/P and progress in hospital , Lab and Imaging , A: Ac. on Chronic CHF , improving . JANELL/Hypoventilation Syndrome . Hypercapnia and possible Nocturnal Hypoxemia P : Pt. must use CPAP at night, at least for 6-7 Hrs. Overnight Oximetry recording , with use of CPAP at night, and if O2 sat are below 89 % Pt. will need O2 supplementation . Check venous BGs in AM , if still alkalotic , then add Diamox 250 mg po daily .
[2020-09-09 11:01] LABS: Glucose, Whole Blood 348 mg/dL (60-115)
[2020-09-09 11:14] VITALS: BP 130/88; PULSE 89; RESP 18; TEMP 36.3; O2SAT 93
--- NOTE | 2020-09-09 12:07 | PM.DS ---
DS: Providers Provider Date of Service: 09/09/20 Date of admission: 09/03/20 22:44 Primary care physician: Linh Ramos MD Consults: 09/03/20 23:33 Consult to Cardiology Routine Consulting Provider: Anjel Lutz Reason for consultation: chf exacerbation Has provider been notified: Yes 09/08/20 14:25 Consult to Pulmonology Routine Consulting Provider: Rashid Key Reason for consultation: hypoxia Has provider been notified: No DS: Diagnosis Discharge Diagnosis (1) Acute exacerbation of CHF (congestive heart failure): Status: Resolved DS: Medications Discharge Medications Home Medications: Home Medications Medication Instructions Recorded Confirmed aspirin 81 mg chewable tablet 1 tab PO DAILY 02/06/20 09/03/20 gabapentin 600 mg tablet 600 mg PO TID 02/06/20 09/03/20 isosorbide mononitrate 30 mg 30 mg PO DAILY 02/06/20 09/03/20 tablet,extended release 24 hr albuterol sulfate 90 mcg/actuation 2 puff INHALATION Q4-6H PRN 08/31/20 09/03/20 aerosol inhaler bumetanide 1 mg tablet 1 mg PO DAILY 08/31/20 09/03/20 fluticasone furoate 100 1 inh INHALATION DAILY 08/31/20 09/03/20 mcg-vilanterol 25 mcg/dose inhalation powder metoprolol succinate 100 mg 100 mg PO DAILY 08/31/20 09/03/20 tablet,extended release 24 hr tiotropium bromide 18 mcg capsule 1 cap INHALATION DAILY 08/31/20 09/03/20 with inhalation device losartan 1 tab PO DAILY 09/03/20 09/03/20 torsemide 20 mg tablet 20 mg PO DAILY PRN tab 09/03/20 09/03/20 Previous Rx's Medication Instructions Recorded calcium carbonate 600 mg calcium 600 mg PO BID 30 Days #60 tab 02/06/20 (1,500 mg) tablet BD Insulin Syringe U-500 1/2 mL 31 #100 ea NS 08/10/20 gauge x 15/64 atorvastatin 80 mg tablet 80 mg PO BEDTIME 30 Days #30 tab 08/10/20 cholecalciferol (vitamin D3) 125 125 mcg PO DAILY 30 Days #30 cap 08/10/20 mcg (5,000 unit) capsule insulin regular hum U-500 conc 500 See Rx Instructions SUBCUT .Twice 08/10/20 unit/mL subcutaneous soln a day 30 Days #20 ml DS: Summary Hospital Course Hospital Course: 60-year-old male with past medical history of sleep apnea, diabetes, 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 Patient also reports leg edema. He was seen by welding machine feeder at the office today and was asked to come to the ED for further management of CHF exacerbation. According to ED physician, welding machine feeder recommended starting patient on Lasix drip. Patient is on torsemide as well as Bumex at home. Patient himself reports no chest pain, no palpitations. Patient reports that usually when he gets CHF he is weight increases from a baseline of 300 and he gets about 25-30 lb. Today's weight is 328. denies any headache, change in vision, no abdominal pain but reports abdominal distension, no nausea or vomiting, no diarrhea constipation, no urinary symptoms on arrival to the ED patient's vital significant for temp of 98?, heart rate of 102, respiratory rate of 20, blood pressure 173/76, satting 91% on room air Labs are significant for WBC count of 7.9, hemoglobin of 12.8, hematocrit 42.2, INR 1.2, BNP of 433, troponin of 27 that decreased to 24 EKG shows atrial sensed ventricular paced rhythm, with no changes when compared to previous EKG Hospital course: 60-year-old male who presents to the hospital with weight gain, shortness of breath, lower extremity edema orthopnea PND Acute on chronic HFrEF exacerbation. orthopnea improving negative >10L thus far. echo done EF 20-25% has ICD -continue oral bumex 2mg bid Hypoxia likely due to JANELL and obesity hypoventilation CTA neg for PE but showing some nonspecific ground glass opacities. not likely r/t chf as pt has already diuresed 10 L home o2 eval negative -continue CPAP -overnight oximetry test for ? supplemental o2 with cpap -pulmonary consult Right leg pain. Likely secondary to edema resolved Hypertension. BP improved - continue metoprolol, Aldactone, Entresto - losartan discontinued AFib/a flutter. - continue metoprolol, Xarelto - ASA stopped Diabetes, uncontrolled latnus + sliding scale here Morbid obesity. BMI 40.7 Likely causing component of obesity hypoventilation and contributing to intermittent hypoxia Time Spent with Patient Time attestation: Total time spent providing and/or coordinating discharge services: Discharge coordination time: Greater than 30 minutes Quality: Stroke Does the patient have a stroke diagnosis?: No Physical Exam Vital Signs: Vital Signs: Last Vital Signs Temp 97.4 F 09/09/20 11:14 Pulse 89 09/09/20 11:14 Resp 18 09/09/20 11:14 BP 130/88 09/09/20 11:14 Pulse Ox 93 09/09/20 11:14 Body Mass Index 40.4 DS: Data Data Completed and Pending Labs on day of discharge: Laboratory Results - last 24 hr 09/08/20 09/08/20 09/09/20 16:04 20:24 07:00 POC Glucose 261 H 294 H 312 H 09/09/20 10:57 POC Glucose 348 H Discharge Plan Discharge Anticipated Discharge Date/Time: 09/09/20 11:50 Patient Disposition: Home Health Service Discharge Diagnosis: CHF, Hypoventilation syndrome Referrals: Smitha MILLER [Outside] - 1 Week Rashid Key MD [Physician] - 1 Week Linh Cook MD [Primary Care Provider] - 1 Week Discharge Medications: New oxycodone 5 mg tablet 5 mg PO Q6H PRN (Reason: pain (scale score 7-10)) Qty: 10 RF: 0 Continued albuterol sulfate 90 mcg/actuation HFA aerosol inhaler 2 puff inhalation Q4-6H PRN (Reason: Shortness Of Breath) RF: 0 Breo Ellipta 100-25 mcg/dose blister with device 1 inh inhalation DAILY RF: 0 metoprolol succinate 100 mg tablet extended release 24 hr 100 mg PO DAILY RF: 0 Spiriva with HandiHaler 18 mcg capsule, w/inhalation device 1 cap inhalation DAILY RF: 0 gabapentin 600 mg tablet 600 mg PO TID RF: 0 isosorbide mononitrate 30 mg tablet extended release 24 hr 30 mg PO DAILY RF: 0 aspirin 81 mg tablet,chewable 1 tab PO DAILY RF: 0 calcium carbonate 600 mg calcium (1,500 mg) tablet 600 mg PO BID 30 Days Qty: 60 RF: 4 atorvastatin 80 mg tablet 80 mg PO BEDTIME 30 Days Qty: 30 RF: 6 cholecalciferol (vitamin D3) 125 mcg (5,000 unit) capsule 125 mcg PO DAILY 30 Days Qty: 30 RF: 6 insulin regular hum U-500 conc 500 unit/mL solution See Rx Instructions subcut .Twice a day 30 Days Qty: 20 RF: 5 (DME) BD Insulin Syringe U-500 1/2 mL 31 gauge x 15/64 syringe See Rx Instructions .ROUTE .MEDSUPPLY Qty: 100 RF: 6 Changed bumetanide 1 mg tablet 2 mg PO BID Qty: 120 RF: 0 No Action Entresto 49-51 mg tablet 1 tab PO BID Qty: 60 RF: 3 Discharge Orders: Discharge Order (Routine); Ordered 09/09/20 Ordered By: Fredrick Frank Diet: advance to usual diet and diabetic diet Activity on Discharge: As tolerated Stand Alone Forms: Patient Portal Discharge page Care Plan Goals: Prevent rehospitalization from CHF Health Concerns: Heart failure, Obesity hypoventilation, obstructive sleep apnea Plan of Treatment: Take all your medication as recommended, note that Bumex dose has been increased to 2 mg twice daily, Use oxygen as directed and follow up with Dr. Key lung Doctor and your [facility] Doctor within a week Assessment: See above Discharge Date/Time: 09/09/20 14:37
== END 2020-09-09 14:37 | disposition home health service (06) | DRG 194 ==
LOC: HO.ED 16:54 → HO.EDOVER 22:53 → HO.IMC 23:23
PROVIDERS: Family Medicine; Nurse Practitioner Acute Care; Nurse Practitioner Family; Physician Assistant Medical; Admitting Provider Internal Medicine; Emergency Provider Internal Medicine; PCP Internal Medicine; Visit Provider Internal Medicine
DX: I11.0 Hypertensive heart disease with heart failure (principal); E66.01 Morbid (severe) obesity due to excess calories; I42.8 Other cardiomyopathies; I48.92 Unspecified atrial flutter; G47.33 Obstructive sleep apnea (adult) (pediatric); E11.9 Type 2 diabetes mellitus without complications; I50.23 Acute on chronic systolic (congestive) heart failure; Z68.41 Body mass index [BMI] 40.0-44.9, adult; Z95.810 Presence of automatic (implantable) cardiac defibrillator; Z20.822 Contact with and (suspected) exposure to COVID-19; Z79.51 Long term (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 of inhaled steroids; Z87.891 Personal history of nicotine dependence; Z79.82 Long term (current) use of aspirin; Z79.899 Other long term (current) drug therapy
CPT/HCPCS: 36415; 71045; 71275; 80048; 82947; 83880; 84484; 85025; 85027; 85610; 85730; 87635; 93005; 93306; 94640; 94644; 94645; 94660; 99284; J1940; J2270; J2405; Q9957; Q9967

== ENCOUNTER → 2020-09-17 13:46 | Outpatient (BNVA) | payer OTHER, SELFPAY | PROVIDERS: PCP Internal Medicine; Referring Provider Internal Medicine; Visit Provider Internal Medicine Cardiovascular Disease | DX: I50.22 Chronic systolic (congestive) heart failure (principal) | CPT/HCPCS: 99212 ==

== ENCOUNTER 2020-10-18 13:40 | Outpatient (REF) | payer MEDICAID, SELFPAY ==
[2020-10-18 15:07] LABS: MANUAL DIFF FLAG NO
[2020-10-18 15:13] LABS: Basophils Percent Auto 0.5 % (0-2); Eosinophils Absolute Auto 0.2 X10*3/uL (0.0-0.4); Imm Gran Abs Auto 0.02 X10*3/uL (0.00-0.03); Imm Gran Pct Auto 0.3 % (0.0-0.4); Lymphocytes Absolute Auto 0.9 X10*3/uL (1.2-4.9); Lymphocytes Percent Auto 13.8 % (20-40); Mean Corpuscular Hemoglobin 27.4 pg (27.0-33.0); Mean Corpuscular Volume 88.4 fL (80-98); Mean Platelet Volume 9.9 fL (9.4-12.4); Monocytes Absolute Auto 1.1 X10*3/uL (0.1-1.2); Monocytes Percent Auto 17.4 % (2-11); Neutrophils Absolute Auto 4.2 X10*3/uL (2.0-8.3); Platelet Count 206 X10*3/uL (160-400); Red Blood Count 4.75 X10*6/uL (4.60-5.80); Red Cell Distribution Width 16.3 % (11.0-16.0); White Blood Count 6.4 X10*3/uL (4.8-10.8)
== END 2020-10-18 13:41 | disposition home or self-care (01) ==
LOC: HO.LAB 13:40
PROVIDERS: PCP Internal Medicine; Visit Provider Internal Medicine Pulmonary Disease
DX: R05 Cough (principal); I50.9 Heart failure, unspecified; Z91.09 Other allergy status, other than to drugs and biological substances; Z87.891 Personal history of nicotine dependence; Z01.82 Encounter for allergy testing
CPT/HCPCS: 36415; 82785; 85025; 86003; 99202

== ENCOUNTER → 2020-10-25 13:44 | Outpatient (BNVA) | payer MEDICAID, SELFPAY | PROVIDERS: PCP Internal Medicine; Visit Provider Surgery Vascular Surgery | DX: I73.9 Peripheral vascular disease, unspecified (principal) | CPT/HCPCS: 99202 ==

== ENCOUNTER 2020-11-08 12:59 | Outpatient (REF) | payer MEDICAID, SELFPAY ==
[2020-11-08 15:22] LABS: Blood Urea Nitrogen 28 mg/dL (9-16); Calcium 8.5 mg/dL (8.4-10.2); Estimated Glomerular Filt Rate > 60; Glucose Random 338 mg/dL (60-115)
[2020-11-08 15:31] LABS: Anion Gap 11 (12-20); Carbon Dioxide 29 mmol/L (22-29); Chloride 105 mmol/L (96-108); Potassium 4.3 mmol/L (3.3-5.1); Sodium 141 mmol/L (135-145)
== END 2020-11-08 13:00 | disposition home or self-care (01) ==
LOC: HO.LAB 12:59
PROVIDERS: PCP Internal Medicine; Referring Provider Internal Medicine; Visit Provider Internal Medicine Cardiovascular Disease
DX: I50.23 Acute on chronic systolic (congestive) heart failure (principal); Z79.899 Other long term (current) drug therapy; Z79.4 Long term (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 of insulin; Z79.891 Long term (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 of opiate analgesic; Z87.891 Personal history of nicotine dependence
CPT/HCPCS: 36415; 80048; 83735; 93005; 99212

== ENCOUNTER 2020-11-14 09:39 | Outpatient (REF) | payer MEDICAID, SELFPAY ==
--- NOTE | 2020-11-14 10:47 | PFT_ITS ---
INDICATION: Dyspnea. SPIROMETRY: The FEV1 to FVC 85% with an FEV1 of 2.42 L, which is 65% predicted, and an FVC of 2.84 L, which is 59% predicted. No significant response to bronchodilators noted. Maximum voluntary ventilation 65% predicted. LUNG VOLUMES: Total lung capacity 64% predicted with an expiratory reserve volume of 13% predicted secondary to an elevated BMI. DIFFUSION CAPACITY: DLCO 50% predicted. It does correct to 75% when correcting for the alveolar volume. COMPARISONS: None. INTERPRETATION: No obstructive ventilatory defect. No significant response to bronchodilators noted. There is some mild decrease in maximum voluntary ventilation secondary to likely deconditioning, although cannot rule out neuromuscular conditions. Lung volumes do demonstrate a moderate restrictive ventilatory defect likely secondary to an elevated BMI with a decrease in the expiratory reserve volume, although neuromuscular conditions cannot be ruled out. The patient does have a moderate to severe diffusion impairment, it does correct partially when correcting for the alveolar volume. Clinical correlation warranted. Inder Olson MD MR/MODL / [id number]
== END 2020-11-14 09:40 | disposition home or self-care (01) ==
LOC: HO.RESP 09:39
PROVIDERS: PCP Internal Medicine; Visit Provider Internal Medicine Pulmonary Disease
DX: R05 Cough (principal); R06.00 Dyspnea, unspecified
CPT/HCPCS: 94060; 94727; 94729; 99212

== ENCOUNTER → 2020-11-15 13:49 | Outpatient (BNVA) | payer MEDICAID, SELFPAY | PROVIDERS: PCP Internal Medicine; Visit Provider Nurse Practitioner Gerontology | DX: E11.65 Type 2 diabetes mellitus with hyperglycemia (principal); E11.21 Type 2 diabetes mellitus with diabetic nephropathy; E11.40 Type 2 diabetes mellitus with diabetic neuropathy, unspecified; E21.1 Secondary hyperparathyroidism, not elsewhere classified; E78.5 Hyperlipidemia, unspecified; E55.9 Vitamin D deficiency, unspecified; Z79.4 Long term (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 of insulin | CPT/HCPCS: 82947; 83036; 96372; 99212; J1815 ==

== ENCOUNTER → 2020-11-22 12:15 | Outpatient (BNVA) | payer MEDICAID, SELFPAY | PROVIDERS: PCP Internal Medicine; Referring Provider Internal Medicine; Visit Provider Internal Medicine Cardiovascular Disease | DX: I50.23 Acute on chronic systolic (congestive) heart failure (principal) | CPT/HCPCS: 99212 ==

== ENCOUNTER 2020-11-26 10:17 | Outpatient (REF) | payer MEDICAID, SELFPAY | END 2020-11-26 10:18 | disposition home or self-care (01) | LOC: HO.MDS 10:17 | PROVIDERS: PCP Internal Medicine; Visit Provider Internal Medicine Pulmonary Disease | DX: J45.50 Severe persistent asthma, uncomplicated (principal) | CPT/HCPCS: 96372; J2357 ==

== ENCOUNTER 2020-12-10 12:48 | Outpatient (REF) | payer MEDICAID, SELFPAY | END 2020-12-10 12:49 | disposition home or self-care (01) | LOC: HO.MDS 12:48 | PROVIDERS: PCP Internal Medicine; Visit Provider Internal Medicine Pulmonary Disease | DX: J45.50 Severe persistent asthma, uncomplicated (principal) | CPT/HCPCS: 96372; J2357 ==

== ENCOUNTER 2020-12-24 12:22 | Outpatient (REF) | payer MEDICAID, SELFPAY | END 2020-12-24 12:23 | disposition home or self-care (01) | LOC: HO.MDS 12:22 | PROVIDERS: PCP Internal Medicine; Visit Provider Internal Medicine Pulmonary Disease | DX: J45.50 Severe persistent asthma, uncomplicated (principal) | CPT/HCPCS: 96372; J2357 ==

== ENCOUNTER → 2021-01-01 08:20 | Outpatient (BNVA) | payer MEDICAID, SELFPAY | PROVIDERS: PCP Internal Medicine; Visit Provider Nurse Practitioner Gerontology ==

== ENCOUNTER 2021-01-07 11:36 | Outpatient (REF) | payer MEDICAID, SELFPAY ==
[2021-01-07 13:41] LABS: Alanine Aminotransferase 17 U/L (0-40); Albumin Level 3.7 g/dL (3.5-5.0); Alkaline Phosphatase 114 U/L (39-117); Anion Gap 14 (12-20); Aspartate Amino Transferase 20 U/L (5-37); Bilirubin Total 0.6 mg/dL (0.0-1.0); Blood Urea Nitrogen 23 mg/dL (9-16); Calcium 9.3 mg/dL (8.4-10.2); Carbon Dioxide 31 mmol/L (22-29); Chloride 99 mmol/L (96-108); Cholesterol 153 mg/dL; Estimated Glomerular Filt Rate > 60; Glucose Fasting 210 mg/dL (60-99); HDL Cholesterol 33 mg/dL; LDL Cholesterol Calculated 65 mg/dl; Potassium 4.2 mmol/L (3.3-5.1); Sodium 140 mmol/L (135-145); Total Protein 7.3 g/dL (6.5-8.0); Triglycerides 276 mg/dL
[2021-01-07 13:52] LABS: Vitamin D 25-OH Total 23.7 ng/mL (>30)
[2021-01-07 13:56] LABS: Creatinine Urine 46.81 mg/dL; Microalbum/Creatinine Ratio Ur 128.1 ug/mg cr
[2021-01-09 12:11] LABS: Calcium (PTHI) 9.2 mg/dL (8.6-10.3); PTHI 52 pg/mL (14-64)
== END 2021-01-07 11:37 | disposition home or self-care (01) ==
LOC: HO.MDS 11:36
PROVIDERS: Nurse Practitioner Gerontology; PCP Internal Medicine; Visit Provider Internal Medicine Pulmonary Disease
DX: J45.50 Severe persistent asthma, uncomplicated (principal); E21.1 Secondary hyperparathyroidism, not elsewhere classified; E55.9 Vitamin D deficiency, unspecified
CPT/HCPCS: 36415; 80053; 80061; 82043; 82306; 83970; 96372; J2357

== ENCOUNTER → 2021-01-09 12:42 | Outpatient (BNVA) | payer MEDICAID, SELFPAY | PROVIDERS: PCP Internal Medicine; Visit Provider Internal Medicine Pulmonary Disease | DX: J45.909 Unspecified asthma, uncomplicated (principal); R05.9 Cough, unspecified; Z91.09 Other allergy status, other than to drugs and biological substances | CPT/HCPCS: 99212 ==

== ENCOUNTER → 2021-01-14 13:38 | Outpatient (BNVA) | payer MEDICAID, SELFPAY | PROVIDERS: PCP Internal Medicine; Referring Provider Internal Medicine; Visit Provider Internal Medicine Cardiovascular Disease ==

== ENCOUNTER 2021-01-21 10:47 | Outpatient (REF) | payer MEDICAID, SELFPAY | END 2021-01-21 10:48 | disposition home or self-care (01) | LOC: HO.MDS 10:47 | PROVIDERS: PCP Internal Medicine; Visit Provider Internal Medicine Pulmonary Disease | DX: J45.50 Severe persistent asthma, uncomplicated (principal) | CPT/HCPCS: 96372; J2357 ==

== ENCOUNTER 2021-02-04 12:51 | Outpatient (REF) | payer MEDICAID, SELFPAY | END 2021-02-04 12:52 | disposition home or self-care (01) | LOC: HO.MDS 12:51 | PROVIDERS: PCP Internal Medicine; Visit Provider Internal Medicine Pulmonary Disease | DX: J45.50 Severe persistent asthma, uncomplicated (principal); E11.42 Type 2 diabetes mellitus with diabetic polyneuropathy; F19.10 Other psychoactive substance abuse, uncomplicated; B19.20 Unspecified viral hepatitis C without hepatic coma | CPT/HCPCS: 96372; J2357 ==

== ENCOUNTER 2021-02-18 12:07 | Outpatient (REF) | payer MEDICAID, SELFPAY | END 2021-02-18 12:08 | disposition home or self-care (01) | LOC: HO.MDS 12:07 | PROVIDERS: PCP Internal Medicine; Visit Provider Internal Medicine Pulmonary Disease | DX: J45.50 Severe persistent asthma, uncomplicated (principal) | CPT/HCPCS: 96372; 99212; J2357 ==

== ENCOUNTER 2021-03-11 10:49 | Outpatient (REF) | payer MEDICAID, SELFPAY | END 2021-03-11 10:50 | disposition home or self-care (01) | LOC: HO.MDS 10:49 | PROVIDERS: PCP Internal Medicine; Visit Provider Internal Medicine Pulmonary Disease | DX: J45.50 Severe persistent asthma, uncomplicated (principal) | CPT/HCPCS: 96372; J2357 ==

== ENCOUNTER → 2021-03-20 13:48 | Outpatient (BNVA) | payer MEDICAID, SELFPAY | PROVIDERS: PCP Internal Medicine; Visit Provider Internal Medicine Pulmonary Disease | DX: J45.909 Unspecified asthma, uncomplicated (principal); G47.33 Obstructive sleep apnea (adult) (pediatric); Z91.09 Other allergy status, other than to drugs and biological substances; Z99.89 Dependence on other enabling machines and devices | CPT/HCPCS: 99212 ==

== ENCOUNTER 2021-03-25 11:11 | Outpatient (REF) | payer MEDICAID, SELFPAY | END 2021-03-25 11:12 | disposition home or self-care (01) | LOC: HO.MDS 11:11 | PROVIDERS: PCP Internal Medicine; Visit Provider Internal Medicine Pulmonary Disease | DX: J45.50 Severe persistent asthma, uncomplicated (principal) | CPT/HCPCS: 96372; J2357 ==

== ENCOUNTER 2021-04-08 12:09 | Outpatient (REF) | payer MEDICAID, SELFPAY | END 2021-04-08 12:10 | disposition home or self-care (01) | LOC: HO.MDS 12:09 | PROVIDERS: PCP Internal Medicine; Visit Provider Internal Medicine Pulmonary Disease | DX: J45.50 Severe persistent asthma, uncomplicated (principal) | CPT/HCPCS: 96372; J2357 ==

== ENCOUNTER → 2021-04-17 12:46 | Outpatient (REF) | payer MEDICAID, SELFPAY ==
--- NOTE | 2021-04-17 12:51 | CA_ITS ---
Transthoracic Echocardiogram Patient (Last, First, Middle): Ramiro Hamm R Gender: Male Date of : 1960 Age: 61 Procedure Date: 04/17/2021 Procedure Type: Transthoracic Echocardiogram Location: OP Height: 180.34 cm Weight: 145.15 kg BSA: 2.58 m2 Heart Rate: bpm BP: 124 / 68 mmHg Furniture Reproducer: TEENA Referring MD: Lionel Paul MD Symptoms: I50.22 - Chronic systolic (congestive) heart failure Study Quality: Technically Difficult/Contrast Conclusions: - Normal left ventricular size, thickness, and systolic function. The visually estimated ejection fraction is between 55-60%. - E/E prime ratio is between 8 and 15 consistent with indeterminate filling pressures. - There is mildly decreased right ventricular systolic function. There is a pacemaker wire seen in the right ventricle. RV appears mildly dilated in limited views. Findings Procedure Information Contrast agent, definity, is being given per protocol without apparent complications. Left Ventricle Normal left ventricular size, thickness, and systolic function. The visually estimated ejection fraction is between 55-60%. There is paradoxical septal motion consistent with a left bundle branch block. Abnormal diastolic function is noted. Spectral Doppler is indicative of a pseudonormal filling pattern. E/E prime ratio is between 8 and 15 consistent with indeterminate filling pressures. Right Ventricle There is mildly decreased right ventricular systolic function. There is a pacemaker wire seen in the right ventricle. RV appears mildly dilated in limited views. Atria The left atrium was not well visualized. The right atrium is moderately dilated. Aortic Valve The aortic valve was not well visualized. There is no aortic valve stenosis. There is no aortic valve regurgitation. Mitral Valve Normal mitral valve structure and function. There is trace mitral valve regurgitation. There is no mitral valve stenosis. Tricuspid Valve Likely normal tricuspid valve structure and function. There is trace tricuspid valve regurgitation. Tricuspid regurgitation envelope is inadequate for calculation of right ventricular systolic pressure. Normal right atrial pressure. Great Vessels All visible segments of the aorta are normal in size. The visualized portions of the pulmonary artery and branches are normal. Venous The inferior vena cava is normal in size and collapses greater than 50% with inspiration. Pericardium/Pleural There is no evidence of pericardial effusion. Prior Study Comparison Changes noted compared to prior study dated: 09/04/2020. LVEF is normal. Measurements 2D Linear Measurements IVSd: 1.00 0.6-0.9/0.6-1.0 cm LVIDd: 5.47 3.9-5.3/4.2-5.9 cm LVIDd Index: 2.12 2.4-3.2/2.2-3.1 cm/m2 LVIDs: 4.50 2.0-3.6 cm LVPWd: 1.06 0.7-1.1 cm Ao Root: 3.50 2.1-3.5 cm LA Diam: 4.40 2.7-3.8/3.0-4.0 cm LAIDs Index: 1.71 1.5-2.3 cm/m2 LV Mass: 273.82 67-162/88-224 g LV Mass Index: 106.13 43-95/49-115 g/m2 LVOT Diam: 2.10 3.0+(-)1.3 cm 2D Systolic Function EF 4C: 33.70 >55% EF 2C: 34.00 >55% Mitral Valve MV Pk E: 0.98 MV PK A: 0.65 MV Decel Time: 134.00 E/A: 1.50 E'Lateral: 8.27 E'Medial: 7.72 E/E' Med: 12.70 E/E' Lat: 11.80 PHT: 39.00 MVA PHT: 5.64 Decel [place]: 7.32 Aortic Valve AoV Pk Kolby: 1.51 AoV Mn Kolby: 1.05 AoV VTI: 0.28 AoV Pk Grad: 9.00 Aov Mn Grad: 5.00 JOSS Cont.VTI: 2.71 LVOT LVOT Pk [place]by: 1.06 LVOT Mn Kolby: 0.77 LVOT VTI: 0.22 LVOT Pk Grad: 4.00 LVOT Mn Grad: 3.00 LVOT Diam: 2.10 LVOT Area: 3.46 Diastolic Function MV Pk E: 0.98 MV Pk A: 0.65 E/A: 1.50 E'Medial: 7.72 E/E' Med: 12.70 E' Laterial: 8.27 E/E' Lat: 11.80 Right Ventricle TAPSE (mm): 19.50 TVS' [place]: 12.00 Tricuspid Valve TR Pk [place]by: 1.02 TR Pk Grad: 4.00 RA Press: 3.00 Great Vessels Aorta Ao Root-2D: 3.50 2.0-3.7 cm Ao Asc: 3.30 2.1-3.4 cm Ao Arch: 3.60 Updated in Other Vendor System with Status of Final Lioenl Paul MD electronically signed on 04/19/2021 11:51:20 PM with status of Final
== END ==
LOC: HO.CARD 12:46
PROVIDERS: PCP Internal Medicine; Visit Provider Internal Medicine Cardiovascular Disease
DX: I50.22 Chronic systolic (congestive) heart failure (principal); E11.65 Type 2 diabetes mellitus with hyperglycemia; E11.21 Type 2 diabetes mellitus with diabetic nephropathy; E11.40 Type 2 diabetes mellitus with diabetic neuropathy, unspecified; E21.1 Secondary hyperparathyroidism, not elsewhere classified; E78.5 Hyperlipidemia, unspecified; E55.9 Vitamin D deficiency, unspecified; Z79.4 Long term (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 of insulin
CPT/HCPCS: 82947; 83036; 93306; 99212; Q9957

== ENCOUNTER 2021-04-22 12:07 | Outpatient (REF) | payer MEDICAID, SELFPAY | END 2021-04-22 12:08 | disposition home or self-care (01) | LOC: HO.MDS 12:07 | PROVIDERS: PCP Internal Medicine; Visit Provider Internal Medicine Pulmonary Disease | DX: J45.50 Severe persistent asthma, uncomplicated (principal) | CPT/HCPCS: 93005; 96372; 99212; J2357 ==

== ENCOUNTER 2021-05-06 11:20 | Outpatient (REF) | payer MEDICAID, SELFPAY | END 2021-05-06 11:21 | disposition home or self-care (01) | LOC: HO.MDS 11:20 | PROVIDERS: PCP Internal Medicine; Visit Provider Internal Medicine Pulmonary Disease | DX: J45.50 Severe persistent asthma, uncomplicated (principal) | CPT/HCPCS: 96372; J2357 ==

== ENCOUNTER 2021-05-20 11:03 | Outpatient (REF) | payer MEDICAID, SELFPAY ==
[2021-05-20 12:50] LABS: Alanine Aminotransferase 18 U/L (0-40); Albumin Level 3.5 g/dL (3.5-5.0); Alkaline Phosphatase 100 U/L (39-117); Anion Gap 11 (12-20); Aspartate Amino Transferase 20 U/L (5-37); Bilirubin Total 0.4 mg/dL (0.0-1.0); Blood Urea Nitrogen 30 mg/dL (9-16); Calcium 8.5 mg/dL (8.4-10.2); Carbon Dioxide 31 mmol/L (22-29); Chloride 100 mmol/L (96-108); Cholesterol 136 mg/dL; Estimated Glomerular Filt Rate 58; Glucose Fasting 290 mg/dL (60-99); HDL Cholesterol 30 mg/dL; LDL Cholesterol Calculated 74 mg/dl; Potassium 4.2 mmol/L (3.3-5.1); Sodium 138 mmol/L (135-145); Total Protein 6.5 g/dL (6.5-8.0); Triglycerides 163 mg/dL
[2021-05-20 12:57] LABS: Vitamin D 25-OH Total 19.3 ng/mL (>30)
[2021-05-20 13:00] LABS: Creatinine Urine 61.23 mg/dL; Microalbum/Creatinine Ratio Ur 42.4 ug/mg cr
[2021-05-21 18:25] LABS: LDL Cholesterol Direct 82 mg/dL (<100)
== END 2021-05-20 11:04 | disposition home or self-care (01) ==
LOC: HO.MDS 11:03
PROVIDERS: Nurse Practitioner Gerontology; PCP Internal Medicine; Visit Provider Internal Medicine Pulmonary Disease
DX: J45.50 Severe persistent asthma, uncomplicated (principal); E11.65 Type 2 diabetes mellitus with hyperglycemia; E55.9 Vitamin D deficiency, unspecified
CPT/HCPCS: 36415; 80053; 80061; 82043; 82306; 83721; 96372; J2357

== ENCOUNTER 2021-06-03 11:56 | Outpatient (REF) | payer MEDICAID, SELFPAY | END 2021-06-03 11:57 | disposition home or self-care (01) | LOC: HO.MDS 11:56 | PROVIDERS: PCP Internal Medicine; Visit Provider Internal Medicine Pulmonary Disease | DX: J45.50 Severe persistent asthma, uncomplicated (principal) | CPT/HCPCS: 96372; J2357 ==

== ENCOUNTER 2021-06-11 15:57 | Outpatient (REF) | payer MEDICAID, SELFPAY ==
--- NOTE | ~2021-06-11 | XR_ITS ---
EXAMINATION: BILATERAL KNEE X-RAY CLINICAL INFORMATION: Pain COMPARISON: None TECHNIQUE: 4 views of each knee FINDINGS: Right: There is mild varus angulation. Bone alignment is otherwise normal. There is arthritis at the medial femoral tibial joint with joint space narrowing and increased sclerosis. There is mild arthritis at the patellofemoral joint with small osteophytes. There is a small joint effusion. Left: There is mild varus angulation. Bone alignment is otherwise normal. Arthritis at the medial femoral tibial joint with joint space narrowing and osteophyte formation and increased sclerosis. There are small osteophytes at the patellofemoral joint. There were small ossifications adjacent to the tibial spines. There is a small joint effusion. 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
--- NOTE | ~2021-06-11 | XR_ITS ---
EXAMINATION: BILATERAL KNEE X-RAY CLINICAL INFORMATION: Pain COMPARISON: None TECHNIQUE: 4 views of each knee FINDINGS: Right: There is mild varus angulation. Bone alignment is otherwise normal. There is arthritis at the medial femoral tibial joint with joint space narrowing and increased sclerosis. There is mild arthritis at the patellofemoral joint with small osteophytes. There is a small joint effusion. Left: There is mild varus angulation. Bone alignment is otherwise normal. Arthritis at the medial femoral tibial joint with joint space narrowing and osteophyte formation and increased sclerosis. There are small osteophytes at the patellofemoral joint. There were small ossifications adjacent to the tibial spines. There is a small joint effusion. 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
== END 2021-06-11 15:58 | disposition home or self-care (01) ==
LOC: HO.XRAY 15:57
PROVIDERS: PCP Internal Medicine; Visit Provider Internal Medicine
DX: M25.561 Pain in right knee (principal); M25.562 Pain in left knee
CPT/HCPCS: 73564

== ENCOUNTER 2021-06-17 12:04 | Outpatient (REF) | payer MEDICAID, SELFPAY | END 2021-06-17 12:05 | disposition home or self-care (01) | LOC: HO.MDS 12:04 | PROVIDERS: PCP Internal Medicine; Visit Provider Internal Medicine Pulmonary Disease | DX: J45.50 Severe persistent asthma, uncomplicated (principal); E11.40 Type 2 diabetes mellitus with diabetic neuropathy, unspecified | CPT/HCPCS: 96372; J2357 ==

== ENCOUNTER 2021-07-01 11:44 | Outpatient (REF) | payer MEDICAID, SELFPAY | END 2021-07-01 11:45 | disposition home or self-care (01) | LOC: HO.MDS 11:44 | PROVIDERS: PCP Internal Medicine; Visit Provider Internal Medicine Pulmonary Disease | DX: J45.50 Severe persistent asthma, uncomplicated (principal); M17.0 Bilateral primary osteoarthritis of knee; E11.65 Type 2 diabetes mellitus with hyperglycemia; E11.42 Type 2 diabetes mellitus with diabetic polyneuropathy; E11.21 Type 2 diabetes mellitus with diabetic nephropathy | CPT/HCPCS: 20610; 96372; 99202; J1100; J2357 ==

== ENCOUNTER 2021-07-15 11:33 | Outpatient (REF) | payer MEDICAID, SELFPAY | END 2021-07-15 11:34 | disposition home or self-care (01) | LOC: HO.MDS 11:33 | PROVIDERS: PCP Internal Medicine; Visit Provider Internal Medicine Pulmonary Disease | DX: J45.50 Severe persistent asthma, uncomplicated (principal) | CPT/HCPCS: 96372; J2357 ==

== ENCOUNTER → 2021-07-17 13:16 | Outpatient (BNVA) | payer MEDICAID, SELFPAY | PROVIDERS: PCP Internal Medicine; Visit Provider Nurse Practitioner Gerontology | DX: E11.65 Type 2 diabetes mellitus with hyperglycemia (principal); E11.21 Type 2 diabetes mellitus with diabetic nephropathy; E11.40 Type 2 diabetes mellitus with diabetic neuropathy, unspecified; E78.5 Hyperlipidemia, unspecified; E55.9 Vitamin D deficiency, unspecified; E66.01 Morbid (severe) obesity due to excess calories; Z79.4 Long term (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 of insulin; Z68.42 Body mass index [BMI] 45.0-49.9, adult | CPT/HCPCS: 82947; 83036; 99212 ==

== ENCOUNTER → 2021-07-22 12:43 | Outpatient (BNVA) | payer MEDICAID, SELFPAY | PROVIDERS: PCP Internal Medicine; Referring Provider Internal Medicine; Visit Provider Internal Medicine Cardiovascular Disease | DX: I50.32 Chronic diastolic (congestive) heart failure (principal) | CPT/HCPCS: 99212 ==

== ENCOUNTER 2021-07-29 11:58 | Outpatient (REF) | payer MEDICAID, SELFPAY | END 2021-07-29 11:59 | disposition home or self-care (01) | LOC: HO.MDS 11:58 | PROVIDERS: PCP Internal Medicine; Visit Provider Internal Medicine Pulmonary Disease | DX: J45.50 Severe persistent asthma, uncomplicated (principal) | CPT/HCPCS: 96372; J2357 ==

== ENCOUNTER 2021-08-12 10:55 | Outpatient (REF) | payer MEDICAID, SELFPAY | END 2021-08-12 10:56 | disposition home or self-care (01) | LOC: HO.MDS 10:55 | PROVIDERS: PCP Internal Medicine; Visit Provider Internal Medicine Pulmonary Disease | DX: J45.50 Severe persistent asthma, uncomplicated (principal) | CPT/HCPCS: 96372; J2357 ==

== ENCOUNTER 2021-08-26 11:43 | Outpatient (REF) | payer MEDICAID, SELFPAY | END 2021-08-26 11:44 | disposition home or self-care (01) | LOC: HO.MDS 11:43 | PROVIDERS: PCP Internal Medicine; Visit Provider Internal Medicine Pulmonary Disease | DX: J45.50 Severe persistent asthma, uncomplicated (principal) | CPT/HCPCS: 96372; J2357 ==

== ENCOUNTER → 2021-08-29 15:06 | Outpatient (BNVA) | payer MEDICAID, SELFPAY | PROVIDERS: PCP Internal Medicine; Visit Provider Nurse Practitioner Family | DX: Z01.818 Encounter for other preprocedural examination (principal); K74.60 Unspecified cirrhosis of liver | CPT/HCPCS: 99202 ==

== ENCOUNTER → 2021-09-03 13:31 | Outpatient (BNVA) | payer MEDICAID, SELFPAY | PROVIDERS: PCP Internal Medicine; Visit Provider Internal Medicine Pulmonary Disease | DX: J45.909 Unspecified asthma, uncomplicated (principal); G47.33 Obstructive sleep apnea (adult) (pediatric); Z91.09 Other allergy status, other than to drugs and biological substances; Z79.899 Other long term (current) drug therapy; Z99.89 Dependence on other enabling machines and devices | CPT/HCPCS: 99212 ==

== ENCOUNTER 2021-09-11 11:15 | Outpatient (REF) | payer MEDICAID, SELFPAY | END 2021-09-11 11:16 | disposition home or self-care (01) | LOC: HO.MDS 11:15 | PROVIDERS: PCP Internal Medicine; Visit Provider Internal Medicine Pulmonary Disease | DX: J45.50 Severe persistent asthma, uncomplicated (principal) | CPT/HCPCS: 96372; J2357 ==

== ENCOUNTER 2021-09-23 13:21 | Outpatient (REF) | payer MEDICAID, SELFPAY | END 2021-09-23 13:22 | disposition home or self-care (01) | LOC: HO.MDS 13:21 | PROVIDERS: Visit Provider Internal Medicine Pulmonary Disease | DX: J45.50 Severe persistent asthma, uncomplicated (principal) | CPT/HCPCS: 96372; J2357 ==

== ENCOUNTER 2021-10-07 12:07 | Outpatient (REF) | payer MEDICAID, SELFPAY | END 2021-10-07 12:08 | disposition home or self-care (01) | LOC: HO.MDS 12:07 | PROVIDERS: Visit Provider Internal Medicine Pulmonary Disease | DX: J45.50 Severe persistent asthma, uncomplicated (principal) | CPT/HCPCS: 96372; J2357 ==

== ENCOUNTER 2021-10-21 12:00 | Outpatient (REF) | payer MEDICAID, SELFPAY | END 2021-10-21 12:01 | disposition home or self-care (01) | LOC: HO.MDS 12:00 | PROVIDERS: Visit Provider Internal Medicine Pulmonary Disease | DX: J45.50 Severe persistent asthma, uncomplicated (principal) | CPT/HCPCS: 96372; J2357 ==

== ENCOUNTER 2021-11-04 11:45 | Outpatient (REF) | payer MEDICAID, SELFPAY | END 2021-11-04 11:46 | disposition home or self-care (01) | LOC: HO.MDS 11:45 | PROVIDERS: Visit Provider Internal Medicine Pulmonary Disease | DX: J45.50 Severe persistent asthma, uncomplicated (principal) | CPT/HCPCS: 96372; J2357 ==

== ENCOUNTER 2021-11-18 11:45 | Outpatient (REF) | payer MEDICAID, SELFPAY | END 2021-11-18 11:46 | disposition home or self-care (01) | LOC: HO.MDS 11:45 | PROVIDERS: Visit Provider Internal Medicine Pulmonary Disease | DX: J45.50 Severe persistent asthma, uncomplicated (principal); R53.83 Other fatigue | CPT/HCPCS: 96372; J2357 ==

== ENCOUNTER → 2021-11-25 13:50 | Outpatient (BNVA) | payer MEDICAID, SELFPAY | PROVIDERS: PCP Internal Medicine; Referring Provider Internal Medicine; Visit Provider Internal Medicine Cardiovascular Disease | DX: I50.9 Heart failure, unspecified (principal); R05.9 Cough, unspecified | CPT/HCPCS: 93005; 99212 ==

== ENCOUNTER 2021-12-02 11:45 | Outpatient (REF) | payer MEDICAID, SELFPAY | END 2021-12-02 11:46 | disposition home or self-care (01) | LOC: HO.MDS 11:45 | PROVIDERS: Visit Provider Internal Medicine Pulmonary Disease | DX: J45.50 Severe persistent asthma, uncomplicated (principal) | CPT/HCPCS: 96372; J2357 ==

== ENCOUNTER 2021-12-17 11:47 | Outpatient (REF) | payer MEDICAID, SELFPAY | END 2021-12-17 11:48 | disposition home or self-care (01) | LOC: HO.MDS 11:47 | PROVIDERS: Visit Provider Internal Medicine Pulmonary Disease | DX: J45.50 Severe persistent asthma, uncomplicated (principal) | CPT/HCPCS: 96372; J2357 ==

== ENCOUNTER → 2021-12-26 14:31 | Outpatient (BNVA) | payer MEDICAID, SELFPAY | PROVIDERS: PCP Internal Medicine; Visit Provider Internal Medicine Cardiovascular Disease | DX: I50.9 Heart failure, unspecified (principal); R05.9 Cough, unspecified | CPT/HCPCS: 99212 ==

== ENCOUNTER 2021-12-30 11:50 | Outpatient (REF) | payer MEDICAID, SELFPAY | END 2021-12-30 11:51 | disposition home or self-care (01) | LOC: HO.MDS 11:50 | PROVIDERS: Visit Provider Internal Medicine Pulmonary Disease | DX: J45.50 Severe persistent asthma, uncomplicated (principal) | CPT/HCPCS: 96372; J2357 ==

== ENCOUNTER → 2022-01-01 12:38 | Outpatient (BNVA) | payer MEDICAID, SELFPAY | PROVIDERS: PCP Internal Medicine; Visit Provider Internal Medicine Endocrinology, Diabetes & Metabolism | DX: E11.65 Type 2 diabetes mellitus with hyperglycemia (principal); Z79.84 Long term (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 of oral hypoglycemic drugs | CPT/HCPCS: 82947; 83036; 99212 ==

== ENCOUNTER 2022-01-07 07:17 | Day surgery (SDC) | payer MEDICAID, SELFPAY ==
[2022-01-02 15:24] VITALS: BMI 44.4
[2022-01-03 12:14] VITALS: BMI 44.6
--- NOTE | 2022-01-06 12:34 | P.CONAN_ITS ---
Documented by User: Ami Lyn NP 01/06/22 12:39 HPI - Anesthesia Eval Consult details Narrative: 61yo M for Colonoscopy Cardiac cleared at intermediate risk ICD in situ Hx PAF, no longer on xarelto PMFSH Active Problems Active Problems: All Active Problems (Updated 01/06/22 @ 11:03 by Brittni Burton, RN) Diabetic nephropathy associated with type 2 diabetes mellitus (Acute) Weakness (Acute) Chronic heart failure (Acute) Chronic systolic heart failure (Acute) Cough (Acute) Environmental allergies (Acute) PAD (peripheral artery disease) (Acute) Acute on chronic systolic heart failure (Acute) Allergic asthma (Acute) Acute on chronic systolic heart failure (Acute) JANELL on CPAP (Acute) Localized osteoarthritis of knees, bilateral (Acute) Obesity due to excess calories (Acute) Cough (Acute) Vitamin D deficiency (Acute) Dyslipidemia (Acute) Diabetic neuropathy associated with type 2 diabetes mellitus (Acute) intermediate card tender (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 of insulin (Acute) Diabetes type 2, uncontrolled (Acute) Diabetes mellitus (Acute) Cirrhosis (Acute) Chronic diastolic heart failure (Acute) Past Medical History Medical History (Updated 01/06/22 @ 11:03 by Brittni Burton RN) Biventricular ICD (implantable cardioverter-defibrillator) in place Chest pain Chronic diastolic heart failure Cirrhosis Congestive heart failure (CHF) Diabetes mellitus Diabetes type 2, uncontrolled Diabetic neuropathy associated with type 2 diabetes mellitus Dyslipidemia HTN (hypertension) Hypoxia group home (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 of insulin Morbid obesity Nonischemic cardiomyopathy JANELL (obstructive sleep apnea) Paroxysmal atrial fibrillation Substance abuse Vitamin D deficiency Family History Family History Mother Diabetes Sister Diabetes Maternal Uncle Diabetes Father No problems noted. Surgical History Surgical History (Updated 01/03/22 @ 12:19 by Aileen Shane RN) Hx of colonoscopy S/P cardiac cath (~11/2019) Social History Social History Household Members: Friend(s) and Other Household Members Other:: sober living home Housing: House Housing Other:: sober house-rents room Are you a primary career development coordinator to a significant other at home: No Do you presently have visiting nurse or other home services: Yes (TICKET MACHINE OPERATOR 3x week) Alcohol intake: never Patient Tobacco Use Status: Former Tobacco user Quit Date: 2002 Tobacco use type: Cigarette Years Smoked: 40 Substance Use Type: Crack/Cocaine, Former Substance User, Heroin, Marijuana and Prescription Drugs Advance Directives Date on File: 07/05/20 service: No Current occupational status: unemployed Meds Allergies Allergy/AdvReac Type Severity Reaction Status Date / Time lisinopril AdvReac Intermediate cough Verified 01/03/22 12:14 Home Medications Medication Instructions Recorded Confirmed Last Taken Type albuterol sulfate 90 mcg/actuation 2 puff inhalation Q4-6H PRN 08/31/20 01/03/22 Unknown History aerosol inhaler Shortness Of Breath metoprolol succinate 100 mg 100 mg PO DAILY 08/31/20 12/26/21 Unknown History tablet,extended release 24 hr gabapentin 800 mg tablet 800 mg PO TID 04/17/21 01/03/22 Unknown History Exam Exam Date and Time: January 06, 2022 1234 Height,Weight and Vital Signs: Height 5 ft 11 in Weight 145.15 kg Narrative Narrative: EKG 11/2021 Normal sinus rhythm at 70 beats per minute, right bundle-branch block, atrial sensed V paced rhythm, QTC 523 millisecond 12/21/21 ICD monitoring No new alerts. COUNTRY SINGER 95% 12/21/21 HF monitoring Stable thoracic impedance. Assessment and Plan Assessment Anesthesia Assessment: Chart Reviewed Documented by User: José Desai MD 01/07/22 16:03 [facility] Past Medical History Medical History (Updated 01/06/22 @ 11:03 by Brittni Burton RN) Biventricular ICD (implantable cardioverter-defibrillator) in place Chest pain Chronic diastolic heart failure Cirrhosis Congestive heart failure (CHF) Diabetes mellitus Diabetes type 2, uncontrolled Diabetic neuropathy associated with type 2 diabetes mellitus Dyslipidemia HTN (hypertension) Hypoxia group home (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 of insulin Morbid obesity Nonischemic cardiomyopathy JANELL (obstructive sleep apnea) Paroxysmal atrial fibrillation Substance abuse Vitamin D deficiency Functional capacity: independent ambulation Family History Family History Mother Diabetes Sister Diabetes Maternal Uncle Diabetes Father No problems noted. Family history of problems with anesthesia: No Surgical History Surgical History (Updated 01/03/22 @ 12:19 by Aileen Shane RN) Hx of colonoscopy S/P cardiac cath (~11/2019) History of Problems with Anesthesia: No Social History Social History Household Members: Friend(s) and Other Household Members Other:: sober living home Housing: House Housing Other:: sober house-rents room Are you a primary career development coordinator to a significant other at home: No Do you presently have visiting nurse or other home services: Yes (TICKET MACHINE OPERATOR 3x week) Alcohol intake: never Patient Tobacco Use Status: Former Tobacco user Quit Date: 2002 Tobacco use type: Cigarette Years Smoked: 40 Substance Use Type: Crack/Cocaine, Former Substance User, Heroin, Marijuana and Prescription Drugs Advance Directives Date on File: 07/05/20 service: No Current occupational status: unemployed Meds Allergies Allergy/AdvReac Type Severity Reaction Status Date / Time lisinopril AdvReac Intermediate cough Verified 01/03/22 12:14 Home Medications Medication Instructions Recorded Confirmed Last Taken Type albuterol sulfate 90 mcg/actuation 2 puff inhalation Q4-6H PRN 08/31/20 01/03/22 Unknown History aerosol inhaler Shortness Of Breath metoprolol succinate 100 mg 100 mg PO DAILY 08/31/20 12/26/21 Unknown History tablet,extended release 24 hr gabapentin 800 mg tablet 800 mg PO TID 04/17/21 01/03/22 Unknown History Exam Airway Mallampati Class: IV TM Dist: >3cm Denture: Upper and Lower Loose/Missing/Broken Teeth: Yes Heart: PAced Lungs: b/l breath sounds Assessment and Plan Assessment Anesthesia Assessment: Anesthesia Plan Discussed Final Anesthetic Review Family History of Problems with Anesthesia: No History of Problems with Anesthesia: No NPO: Yes ASA Class: IV Final Preanesthetic Review: Meds/Allgs Chart Reviewed, Consent Obtained/Reviewed and Anes Risks/Benef Reviewed Patient Risk: High Procedure Risk: Intermediate Anesthetic Plan Anesthetic Plan: MAC: Disposition: Standard PACU
--- NOTE | 2022-01-07 06:38 | MHC.SHP ---
Pre-Procedural Eval Section A Date of Service: 01/07/22 Section B Chief Complaint: screening Relevant Family History (Specify if Yes): No Relevant Social History: None Present Medications: see Short Stay Collaborative assessment Medical History: Significant History (Biventricular ICD (implantable cardioverter-defibrillator) in place Chest pain Chronic diastolic heart failure Cirrhosis Congestive heart failure (CHF) Diabetes mellitus Diabetes type 2, uncontrolled Diabetic neuropathy associated with type 2 diabetes mellitus Dyslipidemia HTN (hypertension) Hypoxia) History of Previous Operations: Relevant previous surgery/procedure and date(s) (Hx of colonoscopy S/P cardiac cath (~11/2019)) Allergies: Allergies Allergy/AdvReac Type Severity Reaction Status Date / Time lisinopril AdvReac Intermediate cough Verified 01/03/22 12:14 Review of Systems Sugical H&P ROS: Negative: Constitution, Cardiovascular, Respiratory, Neurological, Psychiatric, Hem-Onc, Allergic/Immunologic, Gastrointestinal, Genitourinary, Musculoskeletal, Integumentary, Endocrine and Eyes/Ears/Nose/Throat Exam Surgical H&P Exam: Normal: HEENT, Normal: Heart, Normal: Lungs, Normal: Extremities, Normal: Abdomen, Normal: Skin and Normal: Neurological Plan Diagnosis/Plan: Unchanged I have reviewed the history and physical and performed a pertinent physical examination on my patient. No changes have occurred unless specified.
[2022-01-07 07:52] VITALS: BP 115/58; PULSE 94; RESP 19; TEMP 37; O2SAT 94
[2022-01-07 07:55] LABS: Glucose, Whole Blood 179 mg/dL (60-115)
[2022-01-07 08:03] LABS: Amphetamine Screen Urine Not Detected (Not Detect); Barbiturates, Urine Not Detected (Not Detect); Benzodiazepines Screen Urine Not Detected (Not Detect); Cannabinoid Screen Urine Not Detected (Not Detect); Cocaine Screen Urine Not Detected (Not Detect); Fentanyl, urine Not Detected (Not Detect); Opiate Screen Urine Not Detected (Not Detect); Phencyclidine Screen Urine Not Detected (Not Detect)
[2022-01-07 08:17] LABS: Hematocrit 38.5 % (42.0-52.0); Hemoglobin 12.1 g/dl (14.0-18.0); Mean Corpuscular HGB Conc 31.4 g/dl (31.0-36.0); Mean Corpuscular Hemoglobin 27.6 pg (27.0-33.0); Mean Corpuscular Volume 87.9 fL (80.0-98.0); Mean Platelet Volume 9.2 fL (9.4-12.4); Platelet Count 245 X10*3/uL (160-400); Red Blood Count 4.38 X10*6/uL (4.60-5.80); Red Cell Distribution Width 14.4 % (11.0-16.0); White Blood Count 11.9 X10*3/uL (4.8-10.8)
[2022-01-07 08:25] LABS: INTERNATIONAL NORM RATIO 1.3 (0.9-1.1); Prothrombin Time 14.6 SEC (10.0-13.1)
--- NOTE | 2022-01-07 08:37 | W.PM.OPN ---
Operative Note Operative Note Date of Service: 01/07/22 Narrative: Operative Information Procedure Description: Colonoscopy Indication: screening Anesthesia: MAC COLONOSCOPY Instrument: Olympus variable stiffness adult scope 190L Colonoscopy Monitoring: Vital signs and clinical assessment, continuous EKG monitoring, Pulse oximetry, Carbon Dioxide monitoring and blood pressure monitoring were done throughout the procedure. Colon withdrawal time was 15 minutes. Procedure: The patient was placed in the left lateral decubitis position and pre-procedure medications were administered. After a digital rectal examination of the ano-rectum, the video colonoscope was inserted into the rectum and advanced through the colon to the cecum/TI. The colonoscope was slowly withdrawn in a retrograde panoramic fashion and the colon mucosa was carefully examined including a retroflexed view of the rectum. Findings and interventions are described below. Procedure Difficulty: moderate, looping and redundant colon Findings: Terminal Ileum-not intubated Cecum: 5-6 mm sessile polyp removed with cold forceps Ascending Colon: 10-12 mm sessile polyp removed with cold snare with one clip applied for hemostasis Transverse Colon -10 mm sessile polyp removed with cold snare Descending Colon:normal Sigmoid Colon: 10-12 mm sessile polyp removed wt cold snare Rectum: Retroflexion with small internal hemorrhoids, grade I Anorectum - normal Colon preparation: [place] Bowel Preparation Scale Right colon; 1 Transverse colon: 1-2 Left colon; 2 (0 = Unprepared colon segment with mucosa not seen due to solid stool that cannot be cleared. 1 = Portion of mucosa of the colon segment seen, but other areas of the colon segment not well seen due to staining, residual stool and/or opaque liquid. 2 = Minor amount of residual staining, small fragments of stool and/or opaque liquid, but mucosa of colon segment seen well. 3 = Entire mucosa of colon segment seen well with no residual staining, small fragments of stool or opaque liquid) Impression and Post Procedure Diagnosis: polyps internal hemorrhoids Plan: High fiber diet leaflet Avoid straining at stool, epsom salts and sitz bath, anusol supps or cream Repeat Colonoscopy in 1 year due to prep or earlier if clinically indicated--next time consider 2d of clears, and check compliance Above findings were reviewed with the patient and relevant handouts were provided if indicated.
[2022-01-07 08:38] LABS: Anion Gap 17 (12-20); Blood Urea Nitrogen 27 mg/dL (9-16); Calcium 8.1 mg/dL (8.4-10.2); Carbon Dioxide 30 mmol/L (22-29); Chloride 95 mmol/L (96-108); Creatinine Clr Calc Pharmacy 80.5; Estimated Glomerular Filt Rate 52; Glucose Fasting 202 mg/dL (60-99); Potassium 4.2 mmol/L (3.3-5.1); Sodium 138 mmol/L (135-145)
[2022-01-07 09:19] VITALS: BP 91/43; PULSE 89; RESP 16; TEMP 37.7; O2SAT 95
[2022-01-07 09:34] VITALS: BP 92/38; PULSE 89; RESP 19; O2SAT 94
[2022-01-07 09:49] VITALS: BP 104/54; PULSE 91; RESP 20; TEMP 36.1; O2SAT 97
== END 2022-01-07 10:18 | disposition home or self-care (01) ==
PROVIDERS: Nurse Practitioner; Visit Provider Internal Medicine Gastroenterology
PROC: 0DJD8ZZ Inspection of Lower Intestinal Tract, Via Natural or Artificial Opening Endoscopic (ICD-10-PCS; CPT 45378; principal; 2022-01-07 08:20)
DX: Z12.11 Encounter for screening for malignant neoplasm of colon (principal); D12.0 Benign neoplasm of cecum; D12.2 Benign neoplasm of ascending colon; D12.3 Benign neoplasm of transverse colon; K63.5 Polyp of colon; K64.0 First degree hemorrhoids; K74.60 Unspecified cirrhosis of liver; I50.9 Heart failure, unspecified; I11.0 Hypertensive heart disease with heart failure; I42.8 Other cardiomyopathies; Z95.810 Presence of automatic (implantable) cardiac defibrillator; I48.0 Paroxysmal atrial fibrillation; G47.33 Obstructive sleep apnea (adult) (pediatric); E66.01 Morbid (severe) obesity due to excess calories; Z68.41 Body mass index [BMI] 40.0-44.9, adult; Z79.01 Long term (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 of anticoagulants; Z99.89 Dependence on other enabling machines and devices; Z79.899 Other long term (current) drug therapy; Z88.8 Allergy status to other drugs, medicaments and biological substances; F19.10 Other psychoactive substance abuse, uncomplicated; Z86.19 Personal history of other infectious and parasitic diseases; F14.11 Cocaine abuse, in remission; F11.11 Opioid abuse, in remission; F12.11 Cannabis abuse, in remission; Z87.891 Personal history of nicotine dependence
CPT/HCPCS: 45385; 45380; 36415; 80048; 80307; 82947; 85027; 85610; 88305; J2370

== ENCOUNTER 2022-01-13 10:53 | Outpatient (REF) | payer MEDICAID, SELFPAY | END 2022-01-13 10:54 | disposition home or self-care (01) | LOC: HO.MDS 10:53 | PROVIDERS: PCP Internal Medicine; Visit Provider Internal Medicine Pulmonary Disease | DX: J45.50 Severe persistent asthma, uncomplicated (principal) | CPT/HCPCS: 96372; J2357 ==

== ENCOUNTER → 2022-01-16 10:52 | Outpatient (BNVA) | payer MEDICAID, SELFPAY | PROVIDERS: PCP Internal Medicine; Visit Provider Registered Nurse Diabetes Educator | DX: E11.21 Type 2 diabetes mellitus with diabetic nephropathy (principal); Z79.4 Long term (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 of insulin | CPT/HCPCS: 99211 ==

== ENCOUNTER → 2022-01-21 15:32 | Outpatient (BNVA) | payer MEDICAID, SELFPAY | PROVIDERS: PCP Internal Medicine; Visit Provider Nurse Practitioner Family | DX: D36.9 Benign neoplasm, unspecified site (principal); Z98.890 Other specified postprocedural states | CPT/HCPCS: 99212 ==

== ENCOUNTER 2022-01-27 11:55 | Outpatient (REF) | payer MEDICAID, SELFPAY | END 2022-01-27 11:56 | disposition home or self-care (01) | LOC: HO.MDS 11:55 | PROVIDERS: Visit Provider Internal Medicine Pulmonary Disease | DX: J45.50 Severe persistent asthma, uncomplicated (principal) | CPT/HCPCS: 96372; J2357 ==

== ENCOUNTER 2022-02-10 11:52 | Outpatient (REF) | payer MEDICAID, SELFPAY | END 2022-02-10 11:53 | disposition home or self-care (01) | LOC: HO.MDS 11:52 | PROVIDERS: Visit Provider Internal Medicine Pulmonary Disease | DX: J45.50 Severe persistent asthma, uncomplicated (principal) | CPT/HCPCS: 96372; J2357 ==

== ENCOUNTER → 2022-02-14 12:45 | Outpatient (BNVA) | payer MEDICAID, SELFPAY | PROVIDERS: PCP Internal Medicine; Visit Provider Internal Medicine Pulmonary Disease | DX: J45.909 Unspecified asthma, uncomplicated (principal); G47.33 Obstructive sleep apnea (adult) (pediatric); Z91.09 Other allergy status, other than to drugs and biological substances; Z79.899 Other long term (current) drug therapy; Z99.89 Dependence on other enabling machines and devices | CPT/HCPCS: 99212 ==

== ENCOUNTER 2022-02-24 11:55 | Outpatient (REF) | payer MEDICAID, SELFPAY | END 2022-02-24 11:56 | disposition home or self-care (01) | LOC: HO.MDS 11:55 | PROVIDERS: Visit Provider Internal Medicine Pulmonary Disease | DX: J45.50 Severe persistent asthma, uncomplicated (principal) | CPT/HCPCS: 96372; J2357 ==

== ENCOUNTER 2022-03-12 11:58 | Outpatient (REF) | payer MEDICAID, SELFPAY | END 2022-03-12 11:59 | disposition home or self-care (01) | LOC: HO.MDS 11:58 | PROVIDERS: Visit Provider Internal Medicine Pulmonary Disease | DX: J45.50 Severe persistent asthma, uncomplicated (principal); E11.65 Type 2 diabetes mellitus with hyperglycemia; E11.40 Type 2 diabetes mellitus with diabetic neuropathy, unspecified; E11.21 Type 2 diabetes mellitus with diabetic nephropathy; I12.9 Hypertensive chronic kidney disease with stage 1 through stage 4 chronic kidney disease, or unspecified chronic kidney disease; Z79.4 Long term (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 of insulin | CPT/HCPCS: 96372; 99211; J2357 ==

== ENCOUNTER 2022-03-24 11:59 | Outpatient (REF) | payer MEDICAID, SELFPAY | END 2022-03-24 12:00 | disposition home or self-care (01) | LOC: HO.MDS 11:59 | PROVIDERS: Visit Provider Internal Medicine Pulmonary Disease | DX: J45.50 Severe persistent asthma, uncomplicated (principal) | CPT/HCPCS: 96372; J2357 ==

== ENCOUNTER → 2022-03-27 15:13 | Outpatient (BNVA) | payer MEDICAID, SELFPAY | PROVIDERS: PCP Internal Medicine; Referring Provider Internal Medicine; Visit Provider Internal Medicine Cardiovascular Disease | DX: I42.7 Cardiomyopathy due to drug and external agent (principal); I49.3 Ventricular premature depolarization; I48.0 Paroxysmal atrial fibrillation; E11.65 Type 2 diabetes mellitus with hyperglycemia; E11.40 Type 2 diabetes mellitus with diabetic neuropathy, unspecified; I11.0 Hypertensive heart disease with heart failure; I50.32 Chronic diastolic (congestive) heart failure; Z79.4 Long term (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 of insulin; Z95.810 Presence of automatic (implantable) cardiac defibrillator; Z98.890 Other specified postprocedural states | CPT/HCPCS: 99212 ==

== ENCOUNTER → 2022-04-02 12:19 | Outpatient (BNVA) | payer MEDICAID, SELFPAY | PROVIDERS: PCP Internal Medicine; Visit Provider Internal Medicine Endocrinology, Diabetes & Metabolism | DX: E11.65 Type 2 diabetes mellitus with hyperglycemia (principal); Z79.4 Long term (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 of insulin | CPT/HCPCS: 82947; 83036; 99212 ==

== ENCOUNTER 2022-04-07 11:48 | Outpatient (REF) | payer MEDICAID, SELFPAY | END 2022-04-07 11:49 | disposition home or self-care (01) | LOC: HO.MDS 11:48 | PROVIDERS: Visit Provider Internal Medicine Pulmonary Disease | DX: J45.50 Severe persistent asthma, uncomplicated (principal) | CPT/HCPCS: 96372; J2357 ==

== ENCOUNTER 2022-04-21 11:38 | Outpatient (REF) | payer MEDICAID, SELFPAY | END 2022-04-21 11:39 | disposition home or self-care (01) | LOC: HO.MDS 11:38 | PROVIDERS: Visit Provider Internal Medicine Pulmonary Disease | DX: J45.50 Severe persistent asthma, uncomplicated (principal) | CPT/HCPCS: 96372; J2357 ==

== ENCOUNTER 2022-05-05 12:07 | Outpatient (REF) | payer MEDICAID, SELFPAY | END 2022-05-05 12:08 | disposition home or self-care (01) | LOC: HO.MDS 12:07 | PROVIDERS: Visit Provider Internal Medicine Pulmonary Disease | DX: J45.50 Severe persistent asthma, uncomplicated (principal) | CPT/HCPCS: 96372; J2357 ==

== ENCOUNTER → 2022-05-12 09:16 | Outpatient (BNVA) | payer MEDICAID, SELFPAY | PROVIDERS: PCP Internal Medicine; Visit Provider Physician Assistant | DX: M17.0 Bilateral primary osteoarthritis of knee (principal); E11.65 Type 2 diabetes mellitus with hyperglycemia | CPT/HCPCS: 20610; 99212; J1020 ==

== ENCOUNTER 2022-05-19 12:05 | Outpatient (REF) | payer MEDICAID, SELFPAY | END 2022-05-19 12:06 | disposition home or self-care (01) | LOC: HO.MDS 12:05 | PROVIDERS: Visit Provider Internal Medicine Pulmonary Disease | DX: J45.50 Severe persistent asthma, uncomplicated (principal); M17.0 Bilateral primary osteoarthritis of knee; E11.65 Type 2 diabetes mellitus with hyperglycemia; E11.40 Type 2 diabetes mellitus with diabetic neuropathy, unspecified; Z79.4 Long term (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 of insulin | CPT/HCPCS: 20610; 96372; J2357; J7323 ==

== ENCOUNTER → 2022-05-22 14:13 | Outpatient (BNVA) | payer MEDICAID, SELFPAY | PROVIDERS: PCP Internal Medicine; Visit Provider Physician Assistant | DX: M17.0 Bilateral primary osteoarthritis of knee (principal); E11.65 Type 2 diabetes mellitus with hyperglycemia | CPT/HCPCS: 20610; J7323 ==

== ENCOUNTER → 2022-05-26 12:01 | Outpatient (BNVA) | payer MEDICAID, SELFPAY | PROVIDERS: PCP Internal Medicine; Visit Provider Physician Assistant | DX: M17.0 Bilateral primary osteoarthritis of knee (principal); E11.65 Type 2 diabetes mellitus with hyperglycemia | CPT/HCPCS: 20610; J7323 ==

== ENCOUNTER 2022-06-02 11:39 | Outpatient (REF) | payer MEDICAID, SELFPAY | END 2022-06-02 11:40 | disposition home or self-care (01) | LOC: HO.MDS 11:39 | PROVIDERS: Visit Provider Internal Medicine Pulmonary Disease | DX: J45.50 Severe persistent asthma, uncomplicated (principal); M17.0 Bilateral primary osteoarthritis of knee; E11.65 Type 2 diabetes mellitus with hyperglycemia | CPT/HCPCS: 20610; 96372; J2357; J7323 ==

== ENCOUNTER 2022-06-16 11:30 | Outpatient (REF) | payer MEDICAID, SELFPAY | END 2022-06-16 11:31 | disposition home or self-care (01) | LOC: HO.MDS 11:30 | PROVIDERS: Visit Provider Internal Medicine Pulmonary Disease | DX: J45.50 Severe persistent asthma, uncomplicated (principal) | CPT/HCPCS: 96372; J2357 ==

== ENCOUNTER 2022-06-30 11:15 | Outpatient (REF) | payer MEDICAID, SELFPAY ==
[2022-06-30 13:11] LABS: Anion Gap 14 (12-20); Blood Urea Nitrogen 21 mg/dL (9-16); Calcium 8.4 mg/dL (8.4-10.2); Carbon Dioxide 31 mmol/L (22-29); Chloride 104 mmol/L (96-108); Cholesterol 174 mg/dL; Estimated Glomerular Filt Rate 57; Glucose Random 121 mg/dL (60-115); HDL Cholesterol 37 mg/dL; LDL Cholesterol Calculated 111 mg/dl; Potassium 3.8 mmol/L (3.3-5.1); Sodium 145 mmol/L (135-145); Triglycerides 132 mg/dL
[2022-06-30 14:24] LABS: Creatinine Urine 48.01 mg/dL; Microalbum/Creatinine Ratio Ur 60.4 ug/mg cr
== END 2022-06-30 11:16 | disposition home or self-care (01) ==
LOC: HO.LAB 11:15
PROVIDERS: PCP Internal Medicine; Visit Provider Internal Medicine Endocrinology, Diabetes & Metabolism
DX: E11.65 Type 2 diabetes mellitus with hyperglycemia (principal)
CPT/HCPCS: 36415; 80048; 80061; 82043

== ENCOUNTER 2022-06-30 11:39 | Outpatient (REF) | payer MEDICAID, SELFPAY | END 2022-06-30 11:40 | disposition home or self-care (01) | LOC: HO.MDS 11:39 | PROVIDERS: Visit Provider Internal Medicine Pulmonary Disease | DX: J45.50 Severe persistent asthma, uncomplicated (principal) | CPT/HCPCS: 96369; 96372; J2357 ==

== ENCOUNTER → 2022-07-02 10:32 | Outpatient (BNVA) | payer MEDICAID, SELFPAY | PROVIDERS: PCP Internal Medicine; Visit Provider Internal Medicine Endocrinology, Diabetes & Metabolism | DX: E11.65 Type 2 diabetes mellitus with hyperglycemia (principal) | CPT/HCPCS: 82947; 83036; 99212 ==

== ENCOUNTER 2022-07-14 11:47 | Outpatient (REF) | payer MEDICAID, SELFPAY | END 2022-07-14 11:48 | disposition home or self-care (01) | LOC: HO.MDS 11:47 | PROVIDERS: Visit Provider Internal Medicine Pulmonary Disease | DX: J45.50 Severe persistent asthma, uncomplicated (principal) | CPT/HCPCS: 96372; J2357 ==

== ENCOUNTER → 2022-07-22 15:10 | Outpatient (BNVA) | payer MEDICAID, SELFPAY | PROVIDERS: PCP Internal Medicine; Visit Provider Nurse Practitioner Family | DX: K21.9 Gastro-esophageal reflux disease without esophagitis (principal); D36.9 Benign neoplasm, unspecified site | CPT/HCPCS: 99212 ==

== ENCOUNTER 2022-07-28 11:33 | Outpatient (REF) | payer MEDICAID, SELFPAY | END 2022-07-28 11:34 | disposition home or self-care (01) | LOC: HO.MDS 11:33 | PROVIDERS: Visit Provider Internal Medicine Pulmonary Disease | DX: J45.50 Severe persistent asthma, uncomplicated (principal); I50.9 Heart failure, unspecified; E66.01 Morbid (severe) obesity due to excess calories; Z68.42 Body mass index [BMI] 45.0-49.9, adult | CPT/HCPCS: 93005; 96372; 99212; J2357 ==

== ENCOUNTER 2022-08-11 11:52 | Outpatient (REF) | payer MEDICAID, SELFPAY | END 2022-08-11 11:53 | disposition home or self-care (01) | LOC: HO.MDS 11:52 | PROVIDERS: Visit Provider Internal Medicine Pulmonary Disease | DX: J45.50 Severe persistent asthma, uncomplicated (principal) | CPT/HCPCS: 96372; J2357 ==

== ENCOUNTER 2022-08-25 11:54 | Outpatient (REF) | payer MEDICAID, SELFPAY | END 2022-08-25 11:55 | disposition home or self-care (01) | LOC: HO.MDS 11:54 | PROVIDERS: Visit Provider Internal Medicine Pulmonary Disease | DX: J45.50 Severe persistent asthma, uncomplicated (principal) | CPT/HCPCS: 96372; J2357 ==

== ENCOUNTER → 2022-08-29 13:26 | Outpatient (REF) | payer MEDICAID, SELFPAY ==
--- NOTE | 2022-08-29 13:28 | CA_ITS ---
Transthoracic Echocardiogram Patient (Last, First, Middle): Ramiro Hamm R Gender: Male Date of : 1960 Age: 62 Procedure Date: 08/29/2022 Procedure Type: Transthoracic Echocardiogram Location: OP Height: 180.34 cm Weight: 172.37 kg BSA: 2.77 m2 Heart Rate: 92 bpm BP: 132 / 78 mmHg Operators School Manager: SB Referring MD: Roaslba De La Torre WEB USER EXPERIENCE STRATEGISTYamila Symptoms: I47.29 - Other ventricular tachycardia Study Quality: Technically Difficult ECG Rhythm: Paced Conclusions: - LVEF difficult to assess in spite of contrast use; suspect 30 40%. [place] appears akinetic. - No obvious valvular pathology seen on this study. - Mild to moderate pulmonary hypertension is present. Findings Procedure Information Contrast agent, definity, is being given per protocol without apparent complications. The quality of the study was despite the use of contrast and endocardial definition remains poor. The study quality is limited by patients body habitus. Left Ventricle Normal left ventricular cavity size. There is mildly increased left ventricular wall thickness. Regional wall motion abnormalities can not be excluded due to suboptimal endocardial definition. LVEF difficult to assess in spite of contrast use; suspect 30-40%. [place] appears akinetic. Right Ventricle Mildly increased right ventricular cavity size. Atria Both atria are normal in size. Aortic Valve There is a normal trileaflet aortic valve. There is no aortic valve stenosis. There is no aortic valve regurgitation. Mitral Valve There is mild mitral annular calcification. There is no mitral valve regurgitation. There is no mitral valve stenosis. Pulmonic Valve The pulmonic valve is likely normal. Tricuspid Valve There is mild tricuspid valve regurgitation. Mild to moderate pulmonary hypertension is present. Great Vessels The asc aorta is normal in size. Venous The inferior vena cava is mildly dilated and collapses greater than 50% with inspiration. Pericardium/Pleural There is no evidence of pericardial effusion. Prior Study Comparison Changes noted compared to prior study dated: 04/17/2021. Decrease in LVEF. Recommendations, Care & Conclusions No obvious valvular pathology seen on this study. Measurements 2D Linear Measurements IVSd: 0.90 0.6-0.9/0.6-1.0 cm LVIDd: 5.92 3.9-5.3/4.2-5.9 cm LVIDd Index: 2.14 2.4-3.2/2.2-3.1 cm/m2 LVPWd: 0.82 0.7-1.1 cm LA Diam: 4.90 2.7-3.8/3.0-4.0 cm LAIDs Index: 1.77 1.5-2.3 cm/m2 LV Mass: 248.55 67-162/88-224 g LV Mass Index: 89.73 43-95/49-115 g/m2 LVOT Diam: 2.30 3.0+(-)1.3 cm 2D Systolic Function EF 4C: 36.30 >55% EF 2C: 27.90 >55% EF BiP: 32.50 >55% Mitral Valve MV VTI: 0.31 MV Pk Kolby: 1.25 MV Mn Kolby: 0.83 MV Pk Grad: 6.00 MV Mn Grad: 3.00 MV Pk E: 1.14 MV PK A: 0.78 MV Decel Time: 184.00 E/A: 1.50 E'Lateral: 6.37 E'Medial: 5.66 E/E' Med: 20.10 E/E' Lat: 17.90 PHT: 54.00 MVA PHT: 4.07 MVA Continuity: 2.46 Decel [place]: 6.20 Aortic Valve AoV Pk Kolby: 1.38 AoV Pk Grad: 8.00 JOSS: 2.99 LVOT LVOT Pk Kolby: 0.98 LVOT Mn Kolby: 0.67 LVOT VTI: 0.18 LVOT Pk Grad: 4.00 LVOT Mn Grad: 2.00 LVOT Diam: 2.30 LVOT Area: 4.15 Diastolic Function MV Pk E: 1.14 MV Pk A: 0.78 E/A: 1.50 E'Medial: 5.66 E/E' Med: 20.10 E' Laterial: 6.37 E/E' Lat: 17.90 Right Ventricle TAPSE (mm): 22.60 TVS' Kolby: 13.70 Tricuspid Valve TR Pk Kolby: 3.45 TR Pk Grad: 48.00 RA Press: 8.00 RVSP: 56.00 Great Vessels Aorta Sinus of Valsalva: 3.30 2.0-3.5 cm Ao Asc: 3.20 2.1-3.4 cm Pulmonary Valve PV Pk Kolby: 0.95 Peak PV Grad: 4.00 Updated in Other Vendor System with Status of Final Kasi John MD electronically signed on 08/31/2022 9:42:37 AM with status of Final
== END ==
LOC: HO.CARD 13:26
PROVIDERS: PCP Internal Medicine; Visit Provider Nurse Practitioner Family
DX: I47.29 Other ventricular tachycardia (principal); I50.23 Acute on chronic systolic (congestive) heart failure
CPT/HCPCS: 93306; 99212; Q9957

== ENCOUNTER → 2022-09-02 13:18 | Outpatient (BNVA) | payer MEDICAID, SELFPAY | PROVIDERS: PCP Internal Medicine; Visit Provider Registered Nurse Diabetes Educator | DX: Z46.81 Encounter for fitting and adjustment of insulin pump (principal); E11.21 Type 2 diabetes mellitus with diabetic nephropathy | CPT/HCPCS: 99211 ==

== ENCOUNTER 2022-09-08 11:50 | Outpatient (REF) | payer MEDICAID, SELFPAY | END 2022-09-08 11:51 | disposition home or self-care (01) | LOC: HO.MDS 11:50 | PROVIDERS: Visit Provider Internal Medicine Pulmonary Disease | DX: J45.50 Severe persistent asthma, uncomplicated (principal) | CPT/HCPCS: 96372; J2357 ==

== ENCOUNTER → 2022-09-12 11:26 | Outpatient (BNVA) | payer MEDICAID, SELFPAY | PROVIDERS: PCP Internal Medicine; Visit Provider Registered Nurse Diabetes Educator | DX: Z46.81 Encounter for fitting and adjustment of insulin pump (principal); E11.21 Type 2 diabetes mellitus with diabetic nephropathy; Z79.4 Long term (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 of insulin | CPT/HCPCS: 99211 ==

== ENCOUNTER 2022-09-22 11:48 | Outpatient (REF) | payer MEDICAID, SELFPAY | END 2022-09-22 11:49 | disposition home or self-care (01) | LOC: HO.MDS 11:48 | PROVIDERS: Visit Provider Internal Medicine Pulmonary Disease | DX: J45.50 Severe persistent asthma, uncomplicated (principal) | CPT/HCPCS: 96372; J2357 ==

== ENCOUNTER 2022-09-24 13:46 | Outpatient (AMB) | payer MEDICAID, SELFPAY ==
--- NOTE | 2022-09-24 13:59 | A.OFFVIS_ITS ---
Intake Vital Signs 09/24/22 14:04 Height 5 ft 11 in Weight 332 lb 10.841 oz BMI 46.4 BP 130/58 L Blood Pressure Location Lt brachial Position Sitting Pulse 91 Pulse Source Pulse Oximeter Intake Visit Reasons: f/u Type 2 DM Intake Note: Patient present today to follow up on Type 2 Diabetes Mellitus. Patient receives DME supplies through: Pharmacy Last Diabetic Eye exam: Over 1 year Last Podiatry Visit: Does not see a Poditraist Random Glucose: 201 mg/dl HgA1C: 8.5% Breaker Tender Required: No Accompanied by: Self / Same As Patient Allergies lisinopril Adverse Reaction (Intermediate, Verified 09/24/22 14:05) cough Medication List - Last Reconciled 09/24/22 by Yang Encarnacion MD albuterol sulfate 90 mcg/actuation 2 puffs inhalation Q4-6H PRN atorvastatin 80 mg PO BEDTIME 30 days BD Insulin Syringe U-500 (insulin U-500 syringe-needle) Twice a day NS bumetanide 2 mg PO DAILY 30 days dulaglutide (Trulicity) 3 mg (0.5 mL) subcut QWEEK empagliflozin (Jardiance) 10 mg PO DAILY ezetimibe 10 mg PO DAILY flash glucose scanning reader (SchrodingerStyle Home 2 [place]) As directed flash glucose sensor (FreeStyle Home 2 Sensor kit) As directed every 2 weeks fluticasone propionate 50 mcg/actuation 1 spray intranasal BID gabapentin 800 mg PO TID insulin regular hum U-500 conc (Humulin R U-500 (Concentrated) Insulin) 135 units before breakfast and 40 units before dinner subcutaneously; metoprolol succinate ER 100 mg PO DAILY naproxen (Naprosyn) 500 mg PO Q12H PRN 30 days omalizumab (Xolair) 375 mg subcut Q2W 28 days omeprazole 40 mg PO DAILY rivaroxaban (Xarelto) 20 mg PO QPM 90 days sacubitril-valsartan 49-51 mg (Entresto) 1 tab PO BID 90 days sennosides (Natural Senna Laxative) 8.6 mg PO BEDTIME HPI HPI Comments History of Present Illness Details Patient is 62 year old male with DM type 2 diagnosed who presents for continued management of diabetes. Past medical history: DM2, CHF, cardiomyopathy, heroin abuse, hepatitis C, hypertension, hyperlipidemia, sleep apnea on BiPAP, defibrillator Micro and macrovascular complications: nephropathy and neuropathy, PAD Diabetes medications: ?Humulin U 500 120 units 30 minutes before breakfast and to use 40 units 30 minutes before dinner.. In actuality, patient is taking the 2nd dose of U- 500 insulin before bedtime?Trulicity 3mg/week.Jardiance 10 mg QD He is starting a Tandem pump with control IQ this wk Continuous glucose monitoring: In the past 14 days C GM is active 95% with an average blood glucose of 229. Glucose management indicator 8.8%. Glucose variability 31.9%. Patient's blood glucose was within target range of 70-180 27% of the time. He has 0% glucose below target range. The rest is above target range. 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 education: no Ophthalmology evaluation: needs to make appt Other specialists: linen clerk, Laboratory Tests 05/20/21 05/20/21 05/20/21 11:50 11:51 11:51 Creatinine 1.26 Estimated GFR 58 Triglycerides 163 Cholesterol 136 LDL Cholesterol Di rect 82 LDL Cholesterol, C alc 74 HDL Cholesterol 30 25-OH Vitamin D To paloma 19.3 Microalb/Creat Rat io 42.4 PFSH Medical History (Updated 08/29/22 @ 13:19 by Nash Ingram MD) Biventricular ICD (implantable cardioverter-defibrillator) in place Chest pain Chronic diastolic heart failure Cirrhosis Congestive heart failure (CHF) Diabetes mellitus Diabetes type 2, uncontrolled Diabetic neuropathy associated with type 2 diabetes mellitus Dyslipidemia HTN (hypertension) Hypoxia long term care administrator (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 of insulin Morbid obesity Nonischemic cardiomyopathy JANELL (obstructive sleep apnea) Paroxysmal atrial fibrillation Substance abuse Tubular adenoma Vitamin D deficiency Surgical History Hx of colonoscopy S/P cardiac cath (~11/2019) Family History Mother Diabetes Sister Diabetes Maternal Uncle Diabetes Father No problems noted. Social History Household Members: Friend(s) and Other Household Members Other:: sober living home Housing: House Housing Other:: sober house-rents room Are you a primary day care home mother to a significant other at home: No Do you presently have visiting nurse or other home services: Yes (LUBRICATOR GRANULATOR 3x week) Alcohol intake: never Patient Tobacco Use Status: Former Tobacco user Quit Date: 2002 Tobacco use type: Cigarette Years Smoked: 40 Substance Use Type: Crack/Cocaine, Former Substance User, Heroin, Marijuana and Prescription Drugs Advance Directives Date on File: 07/05/20 service: No Current occupational status: unemployed Physical Exam Vital Signs: Last Vital Signs Pulse 91 09/24/22 14:04 BP 130/58 L 09/24/22 14:04 BMI result Body Mass Index 46.4 Absence of Cushingoid features. Absence of acromegalic features. Neck exam reveals nl size thyroid about 15 gms. No thyroid nodules palpable. No carotid bruits present. Lungs CTA. Heart S1 S2, Reg R/R. No M/R/ G. Skin exam reveals absence of vitiligo or acanthosis nigricans. Abdominal exam reveals Soft NT/ND with NA BS. No organomegaly present. Neck Other: . Extrem Other: Visual exam of foot performed. No ulcerations or open lesions. No onchomycosis, no callouses.Pulses 2 + distally Sensation decreasedto monofilament exam. Vibratory sensation sensed is decreased with 128 Hz tuning fork Results AMB Hemoglobin A1c AMB Hemoglobin A1c 8.5 % Last Edit by MAMTA Huertas on 09/24/22 14:36 Results Reviewed Results Reviewed: 09/24/22 14:10 Glucose, Whole Blood Routine Laboratory Last Values Glucose (Clinic) 201 mg/dL (60-115) H 09/24/22 14:10 Hgb A1c (Clinic) 8.5 % (4.0-6.0) H 09/24/22 14:35 Assessment & Plan Assessment & Plan (1) Diabetes type 2, uncontrolled: Code(s): E11.65 - Type 2 diabetes mellitus with hyperglycemia Qualifiers: Glycemic state: with hyperglycemia Qualified Code(s): E11.65 - Type 2 diabetes mellitus with hyperglycemia Plan: This 62-year-old female with history of type 2 diabetes and insulin resistance being treated with U-500 insulin and Trulicity with poor glycemic control and known microvascular and macrovascular complications namely Nephropathy neuropathy, CAD status post stent. Plan is to to proceed to convert to tandem T slim X 2 pump with control IQ. He is awaiting the return to the personal development educator to reinitiate the pump Orders: Orders AMB Hemoglobin A1c 09/24/22 E11.21 - Type 2 diabetes mellitus with diabetic nephropathy Coding Level of Care Code Est Pt Level 4 (87359) Diagnoses Diabetes type 2, uncontrolled E11.65 Glycemic state: with hyperglycemia
[2022-09-24 14:04] VITALS: BP 130/58; PULSE 91; BMI 46.4
[2022-09-24 14:15] LABS: Glucose, Whole Blood 201 mg/dL (60-115)
== END 2022-09-24 14:39 | disposition home or self-care (01) ==
PROVIDERS: PCP Internal Medicine; Visit Provider Internal Medicine Endocrinology, Diabetes & Metabolism
DX: E11.65 Type 2 diabetes mellitus with hyperglycemia (principal)
CPT/HCPCS: 99214

== ENCOUNTER → 2022-09-24 13:46 | Outpatient (BNVA) | payer MEDICAID, SELFPAY | PROVIDERS: Visit Provider Internal Medicine Endocrinology, Diabetes & Metabolism | DX: E11.65 Type 2 diabetes mellitus with hyperglycemia (principal); E11.21 Type 2 diabetes mellitus with diabetic nephropathy; I11.0 Hypertensive heart disease with heart failure; I50.9 Heart failure, unspecified; I42.9 Cardiomyopathy, unspecified; B19.20 Unspecified viral hepatitis C without hepatic coma; F11.10 Opioid abuse, uncomplicated; Z79.4 Long term (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 of insulin | CPT/HCPCS: 82947; 83036; 99212 ==

== ENCOUNTER → 2022-09-25 23:59 | Outpatient (BNV) | payer MEDICAID, SELFPAY ==
--- NOTE | 2022-10-01 11:12 | A.OFFVIS_ITS ---
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 Social History Household Members: Friend(s) and Other Household Members Other:: sober living home Housing: House Housing Other:: sober house-rents room Are you a primary chiropractic care to a significant other at home: No Do you presently have visiting nurse or other home services: Yes (GUEST SERVICE TEAM LEADER 3x week) Alcohol intake: never Patient Tobacco Use Status: Former Tobacco user Quit Date: 2002 Tobacco use type: Cigarette Years Smoked: 40 Substance Use Type: Crack/Cocaine, Former Substance User, Heroin, Marijuana and Prescription Drugs Advance Directives Date on File: 07/05/20 service: No Current occupational status: unemployed Office Procedures Cardiac Device Check Cardiac Device Check Details: Medtronic ICD Battery life 4.8 years. No therapies by the device recently. No atrial arrhythmia. Bi V paced 99.6%. [id number] Cardiac Device Interrogation, pacemaker or defibrillator Procedure code (CPT) selection complete Assessment & Plan Assessment & Plan (1) Chronic heart failure: Code(s): I50.9 - Heart failure, unspecified Orders: Orders AMB Cardiac Device Follow-up 09/25/22 I50.9 - Heart failure, unspecified Coding Level of Care Code Procedure Only Diagnoses Chronic heart failure I50.9 CPT Codes Cardiac Device Check - Cardiac Device 14: [id number] Cardiac Device Interrogation, pacemaker or defibrillator ([id number])
== END ==
PROVIDERS: PCP Internal Medicine; Visit Provider Internal Medicine Cardiovascular Disease
DX: I50.22 Chronic systolic (congestive) heart failure (principal); Z95.810 Presence of automatic (implantable) cardiac defibrillator
CPT/HCPCS: 93296

== ENCOUNTER → 2022-09-25 23:59 | Outpatient (BNV) | payer MEDICAID, SELFPAY ==
--- NOTE | 2022-10-01 11:07 | MHC.OFFVIS ---
Intake Intake Visit Reasons: Remote HF Monitoring- Medtronic Allergies lisinopril Adverse Reaction (Intermediate, Verified 09/24/22 14:05) cough PFSH Medical History (Updated 08/29/22 @ 13:19 by Nash Ingram MD) Biventricular ICD (implantable cardioverter-defibrillator) in place Chest pain Chronic diastolic heart failure Cirrhosis Congestive heart failure (CHF) Diabetes mellitus Diabetes type 2, uncontrolled Diabetic neuropathy associated with type 2 diabetes mellitus Dyslipidemia HTN (hypertension) Hypoxia intermediate card tender (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 of insulin Morbid obesity Nonischemic cardiomyopathy JANELL (obstructive sleep apnea) Paroxysmal atrial fibrillation Substance abuse Tubular adenoma Vitamin D deficiency Surgical History Hx of colonoscopy S/P cardiac cath (~11/2019) Family History Mother Diabetes Sister Diabetes Maternal Uncle Diabetes Father No problems noted. Social History Household Members: Friend(s) and Other Household Members Other:: sober living home Housing: House Housing Other:: sober house-rents room Are you a primary respiratory care practitioner to a significant other at home: No Do you presently have visiting nurse or other home services: Yes (ENGINEER OPERATIONS AND MAINTENANCE 3x week) Alcohol intake: never Patient Tobacco Use Status: Former Tobacco user Quit Date: 2002 Tobacco use type: Cigarette Years Smoked: 40 Substance Use Type: Crack/Cocaine, Former Substance User, Heroin, Marijuana and Prescription Drugs Advance Directives Date on File: 07/05/20 service: No Current occupational status: unemployed Office Procedures Cardiac Device Check Cardiac Device Check Details: HF monitoring. OptiVol is consistent with ongoing volume overload. [id number] Cardiac Device Interrogation, cardio physiologic monitor Procedure code (CPT) selection complete Assessment & Plan Assessment & Plan (1) Chronic heart failure: Code(s): I50.9 - Heart failure, unspecified Orders: Orders AMB Cardiac Device Follow-up 09/25/22 I50.9 - Heart failure, unspecified Coding Level of Care Code Procedure Only Diagnoses Chronic heart failure I50.9 CPT Codes Cardiac Device Check - Cardiac Device 15: [id number] Cardiac Device Interrogation, cardio physiologic monitor ([id number])
== END ==
PROVIDERS: PCP Internal Medicine; Visit Provider Internal Medicine Cardiovascular Disease
DX: I50.9 Heart failure, unspecified (principal)
CPT/HCPCS: 93297

== ENCOUNTER 2022-10-01 12:14 | Outpatient (REF) | payer MEDICAID, SELFPAY ==
[2022-10-01 13:04] LABS: MANUAL DIFF FLAG NO
[2022-10-01 13:37] LABS: Basophils Percent Auto 0.6 % (0-2); Eosinophils Absolute Auto 0.2 X10*3/uL (0.0-0.4); Eosinophils Percent Auto 2.6 % (0-4); Hematocrit 49.4 % (42.0-52.0); Hemoglobin 14.8 g/dl (14.0-18.0); Imm Gran Abs Auto 0.03 X10*3/uL (0.00-0.03); Imm Gran Pct Auto 0.4 % (0.0-0.4); Lymphocytes Percent Auto 13.5 % (20-40); Mean Corpuscular Hemoglobin 26.5 pg (27.0-33.0); Mean Corpuscular Volume 88.4 fL (80.0-98.0); Mean Platelet Volume 9.3 fL (9.4-12.4); Monocytes Percent Auto 13.5 % (2-11); Neutrophils Percent Auto 69.4 % (45-73); Platelet Count 366 X10*3/uL (160-400); Red Blood Count 5.59 X10*6/uL (4.60-5.80); Red Cell Distribution Width 15.8 % (11.0-16.0); White Blood Count 7.2 X10*3/uL (4.8-10.8)
[2022-10-01 14:09] LABS: Alanine Aminotransferase 17 U/L (0-40); Albumin Level 3.8 g/dL (3.5-5.0); Alkaline Phosphatase 100 U/L (39-117); Anion Gap 12 (12-20); Aspartate Amino Transferase 19 U/L (5-37); Bilirubin Direct 0.3 mg/dL (0.0-0.5); Bilirubin Total 0.6 mg/dL (0.0-1.0); Blood Urea Nitrogen 29 mg/dL (9-16); Calcium 9.7 mg/dL (8.4-10.2); Carbon Dioxide 34 mmol/L (22-29); Chloride 100 mmol/L (96-108); Estimated Glomerular Filt Rate 51; Glucose Random 97 mg/dL (60-115); Potassium 3.9 mmol/L (3.3-5.1); Sodium 142 mmol/L (135-145); Total Protein 8.1 g/dL (6.5-8.0)
[2022-10-01 14:13] LABS: Creatinine Urine 40.68 mg/dL; Microalbum/Creatinine Ratio Ur 93.4 ug/mg cr
[2022-10-01 14:42] LABS: Vitamin B12 210 pg/mL (200-900)
== END 2022-10-01 12:15 | disposition home or self-care (01) ==
LOC: HO.HHCL 12:14
PROVIDERS: Visit Provider Internal Medicine
DX: Z00.00 Encounter for general adult medical examination without abnormal findings (principal)
CPT/HCPCS: 36415; 80048; 80076; 82043; 82607; 85025

== ENCOUNTER 2022-10-06 11:37 | Outpatient (REF) | payer MEDICAID, SELFPAY | END 2022-10-06 11:38 | disposition home or self-care (01) | LOC: HO.MDS 11:37 | PROVIDERS: Visit Provider Internal Medicine Pulmonary Disease | DX: J45.50 Severe persistent asthma, uncomplicated (principal) | CPT/HCPCS: 96372; 99212; 99214; J2357 ==

== ENCOUNTER 2022-10-06 14:35 | Outpatient (AMB) | payer MEDICAID, SELFPAY ==
[2022-10-06 14:38] VITALS: BP 130/50; PULSE 98; BMI 44.6
--- NOTE | 2022-10-06 14:38 | MHC.OFFVIS ---
Intake Vital Signs 10/06/22 14:38 Height 5 ft 11 in Weight 319 lb 10.724 oz BMI 44.6 BP 130/50 L Blood Pressure Location Lt brachial Position Sitting Pulse 98 Pulse Source Pulse Oximeter Intake Visit Reasons: 2 MON FUP KM PT Intake Note: 2 month f/u KM PT Director Of Casework Required: No Allergies lisinopril Adverse Reaction (Intermediate, Verified 10/06/22 14:43) cough Medication List - Last Reconciled 10/06/22 by Rosalba De La Torre NP-C albuterol sulfate 90 mcg/actuation 2 puffs inhalation Q4-6H PRN atorvastatin 80 mg PO BEDTIME 30 days BD Insulin Syringe U-500 (insulin U-500 syringe-needle) Twice a day NS bumetanide 2 mg PO DAILY 30 days dulaglutide (Trulicity) 3 mg (0.5 mL) subcut QWEEK empagliflozin (Jardiance) 10 mg PO DAILY ezetimibe 10 mg PO DAILY flash glucose scanning reader (BluPandaStyle Home 2 [place]) As directed flash glucose sensor (FreeStyle Home 2 Sensor kit) DIRECTED EVERY 2 WEEKS fluticasone propionate 50 mcg/actuation 1 spray intranasal BID gabapentin 800 mg PO TID insulin regular hum U-500 conc (Humulin R U-500 (Concentrated) Insulin) 135 units before breakfast and 40 units before dinner subcutaneously; metoprolol succinate ER 100 mg PO DAILY naproxen (Naprosyn) 500 mg PO Q12H PRN 30 days omalizumab (Xolair) 375 mg subcut Q2W 28 days omeprazole 40 mg PO DAILY rivaroxaban (Xarelto) 20 mg PO QPM 90 days sacubitril-valsartan 49-51 mg (Entresto) 1 tab PO BID 90 days sennosides (Natural Senna Laxative) 8.6 mg PO BEDTIME HPI 2 MON FUP KM PT HPI Details Ramiro is a 62-year-old male with past medical history of hypertension, hyperlipidemia, diabetes, chronic diastolic heart failure, paroxysmal atrial fibrillation, Bi V ICD who presents for follow-up. Today he reports he has been having increasing shortness of breath and leg edema. Recently his torsemide was stopped and changed over to Bumex 2 mg daily. He says he developed these symptoms after starting the Bumex. He then called our office and was instructed to restart torsemide as previously ordered, 3 tabs b.i.d.. He now states in the last few days he has had improvement in his breathing and edema. He is still not back to baseline as of yet. He denies PND but has some orthopnea. His leg edema is mostly resolved. No chest discomfort at rest or with activity. No heart palpitations, dizziness, presyncope, syncope, falls. He is taking all his meds as directed. 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 Social History Household Members: Friend(s) and Other Household Members Other:: sober living home Housing: House Housing Other:: sober house-rents room Are you a primary day care provider to a significant other at home: No Do you presently have visiting nurse or other home services: Yes (CHUTE GREASER 3x week) Alcohol intake: never Patient Tobacco Use Status: Former Tobacco user Quit Date: 2002 Tobacco use type: Cigarette Years Smoked: 40 Substance Use Type: Crack/Cocaine, Former Substance User, Heroin, Marijuana and Prescription Drugs Advance Directives Date on File: 07/05/20 service: No Current occupational status: unemployed Review of Systems Const All systems reviewed & are unremarkable except as noted in HPI and below ENT Reports dizziness Card Denies chest pain, Denies chest pain at rest, Denies chest pain with activity, Denies rapid heart rate, Denies pedal edema, Denies edema, Denies leg edema, Denies lightheadedness, Denies palpitations, Denies dyspnea, Denies dyspnea on exertion and Denies orthopnea Resp Denies cough, Denies dyspnea and Denies dyspnea on exertion GI Denies hematochezia and Denies change in stool character Musc Denies abnormal gait, Reports limited range of motion, Reports muscle cramps, Denies muscle weakness, Denies numbness, Denies radiating pain into limb, Denies stiffness and Denies tingling Neuro Denies abnormal gait, Reports dizziness, Denies numbness and Denies tingling Endo Denies palpitations Physical Exam Vital Signs: Last Vital Signs Pulse 98 10/06/22 14:38 BP 130/50 L 10/06/22 14:38 BMI result Body Mass Index 44.6 Const Other: Morbidly obese General: cooperative, comfortable and no acute distress Orientation/consciousness: patient oriented x3 Neck Neck: Yes normal visual inspection and Yes no JVD Resp Other: Lungs diminished Effort & Inspection: normal respiratory effort Auscultation: clear to auscultation bilaterally, no rales, no rhonchi and no wheezes Cardio Jugular venous distension: no JVD Rate: regular rate Rhythm: regular rhythm Heart sounds: S1 normal heart sound present, S2 normal heart sound present, no murmurs and no rubs GI Other: Obese, rounded Neuro General: patient oriented x3 Extrem General: Yes normal to inspection Psych Appearance: grossly normal Mental Status: mental status grossly normal Speech and movement: Normal speech and movement present Office Procedures Cardiac Device Check Cardiac Device Check Details: Medtronic Bi V ICD interrogation done today showing battery 4.8 years, DDD are mode, low rate 80, brief an SVT, no therapies, RV and LV thresholds normal, RA threshold normal, V pace 95.5% of time possible OptiVol accumulations since 09/05/2022, starting slight improvement [id number] Cardiac Device Check, multi lead implantable defibrillator Procedure code (CPT) selection complete Assessment & Plan Assessment & Plan (1) Nonischemic cardiomyopathy: Code(s): I42.8 - Other cardiomyopathies Plan: History of nonischemic cardiomyopathy. Last echocardiogram done 08/29/2022 shows EF 30-40%, apex appears akinetic, no valve abnormalities, [id number] pulmonary hypertension. Prior echo 04/17/2021 showed EF 55-60%. Echo images reviewed by Dr. Paul and recent EF appears to be higher than what is stated. Echo had been ordered due to short nSVT on ICD. Today he tells me that since his last visit his torsemide was changed to Bumex 2 mg daily. On Bumex he had increased shortness of breath, weight gain, leg edema. He was recently changed back to torsemide 60 mg b.i.d.. Today he reports some improvement in how he is feeling however he is still not at baseline yet. Will have him increase torsemide to 80 mg b.i.d. for 2 days then return to 60 mg b.i.d. signs and symptoms of heart failure reviewed. Discussed low-salt diet, activity as tolerated. Continue Entresto and metoprolol XL for neurohormonal modulation. Cardiology follow-up in 2 months to evaluate for heart failure symptoms, further ability for med titration. (2) NSVT (nonsustained ventricular tachycardia): Code(s): I47.29 - Other ventricular tachycardia Plan: Brief episode of NSVT seen on recent ICD interrogation. No ICD therapies required. Labs done 10/01/2022 shows potassium 3.9. Continuing to follow remotely (3) Morbid obesity: Code(s): E66.01 - Morbid (severe) obesity due to excess calories Plan: Discussed benefits of weight loss with him. He is considering evaluation with weight loss program (4) Acute on chronic systolic heart failure: Code(s): I50.23 - Acute on chronic systolic (congestive) heart failure Plan: As above (5) Biventricular ICD (implantable cardioverter-defibrillator) in place: Comment: Medtronic, implanted 06/28/20 Code(s): Z95.810 - Presence of automatic (implantable) cardiac defibrillator Plan: Medtronic Bi V ICD. Office interrogation done today shows device is functioning normally. Remote monitoring in use. Next office interrogation due in 6 months Coding Level of Care Code Est Pt Level 4 (76635) Diagnoses Nonischemic cardiomyopathy I42.8 NSVT (nonsustained ventricular tachycardia) I47.29 Morbid obesity E66.01 Acute on chronic systolic heart failure I50.23 Biventricular ICD (implantable cardioverter-defibrillator) in place Z95.810 CPT Codes Cardiac Device Check - Cardiac Device 6: [id number] Cardiac Device Check, multi lead implantable defibrillator ([id number]) Time Spent (min) 28 Comment Chart review, documentation, interview, assess
== END 2022-10-06 15:32 | disposition home or self-care (01) ==
PROVIDERS: PCP Internal Medicine; Visit Provider Nurse Practitioner Family
DX: I42.8 Other cardiomyopathies (principal); Z95.810 Presence of automatic (implantable) cardiac defibrillator
CPT/HCPCS: 93284; 99214

== ENCOUNTER 2022-10-20 11:41 | Outpatient (REF) | payer MEDICAID, SELFPAY | END 2022-10-20 11:42 | disposition home or self-care (01) | LOC: HO.MDS 11:41 | PROVIDERS: Visit Provider Internal Medicine Pulmonary Disease | DX: J45.50 Severe persistent asthma, uncomplicated (principal) | CPT/HCPCS: 96372; J2357 ==

== ENCOUNTER → 2022-10-26 23:59 | Outpatient (BNV) | payer MEDICAID, SELFPAY ==
--- NOTE | 2022-11-12 12:29 | A.OFFVIS_ITS ---
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 Social History Household Members: Friend(s) and Other Household Members Other:: sober living home Housing: House Housing Other:: sober house-rents room Are you a primary healthcare administrative assistant to a significant other at home: No Do you presently have visiting nurse or other home services: Yes (MOTOR GENERATOR SET OPERATOR 3x week) Alcohol intake: never Patient Tobacco Use Status: Former Tobacco user Quit Date: 2002 Tobacco use type: Cigarette Years Smoked: 40 Substance Use Type: Crack/Cocaine, Former Substance User, Heroin, Marijuana and Prescription Drugs Advance Directives Date on File: 07/05/20 service: No Current occupational status: unemployed Office Procedures Cardiac Device Check Cardiac Device Check Details: Heart failure monitoring. Ventricular pacing 99.7%. No VT/VFib or atrial arrhythmia. Based on thoracic impedance he had significant volume overload toward end of September and thoracic impedance is downtrending right now pointing toward improvement in volume status. [id number] Cardiac Device Interrogation, cardio physiologic monitor Procedure code (CPT) selection complete Assessment & Plan Assessment & Plan (1) Biventricular ICD (implantable cardioverter-defibrillator) in place: Comment: Medtronic, implanted 06/28/20 Code(s): Z95.810 - Presence of automatic (implantable) cardiac defibrillator Coding Level of Care Code Procedure Only Diagnoses Biventricular ICD (implantable cardioverter-defibrillator) in place Z95.810 CPT Codes Cardiac Device Check - Cardiac Device 15: [id number] Cardiac Device Interrogation, cardio physiologic monitor ([id number])
== END ==
PROVIDERS: PCP Internal Medicine; Visit Provider Internal Medicine Cardiovascular Disease
DX: I50.22 Chronic systolic (congestive) heart failure (principal); Z95.810 Presence of automatic (implantable) cardiac defibrillator
CPT/HCPCS: 93297

== ENCOUNTER 2022-11-03 11:58 | Outpatient (REF) | payer MEDICAID, SELFPAY | END 2022-11-03 11:59 | disposition home or self-care (01) | LOC: HO.MDS 11:58 | PROVIDERS: Visit Provider Internal Medicine Pulmonary Disease | DX: J45.50 Severe persistent asthma, uncomplicated (principal) | CPT/HCPCS: 96372; J2357 ==

== ENCOUNTER 2022-11-06 14:14 | Outpatient (AMB) | payer MEDICAID, SELFPAY ==
[2022-11-06 14:15] VITALS: BP 106/62; PULSE 104; O2SAT 90; BMI 44.9
--- NOTE | 2022-11-06 14:15 | MHC.OFFVIS ---
Intake Vital Signs 11/06/22 14:15 Height 5 ft 11 in Weight 321 lb 13.998 oz BMI 44.9 BP 106/62 Blood Pressure Location Rt brachial Position Sitting Pulse 104 H Pulse Source Doppler Pulse Oximetry (%) 90 L Oxygen Delivery Method Room Air Intake Visit Reasons: asthma Allergies lisinopril Adverse Reaction (Intermediate, Verified 11/06/22 14:18) cough HPI asthma HPI Details 62-year-old gentleman with underlying history significant for systolic heart failure with EF of 10-15% on diuretic therapy prior history of cocaine abuse followed for allergic asthma and JANELL.? Patient continues on Xolair and albuterol MDI with excellent control of his asthma symptoms.? He denies recent asthma exacerbations. Patient lower extremity edema got worse on Bumex, so he was switched back to torsemide, however he continues to complain of significant lower extremity edema and dyspnea on exertion. 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 Social History (Reviewed 11/06/22 @ 14:20 by Sugar Whitfield [facility]) Household Members: Friend(s) and Other Household Members Other:: sober living home Housing: House Housing Other:: sober house-rents room Are you a primary auto care center manager to a significant other at home: No Do you presently have visiting nurse or other home services: Yes (RESERVATIONS AND TICKETING AGENT 3x week) Alcohol intake: never Patient Tobacco Use Status: Former Tobacco user Quit Date: 2002 Tobacco use type: Cigarette Years Smoked: 40 Substance Use Type: Crack/Cocaine, Former Substance User, Heroin, Marijuana and Prescription Drugs Advance Directives Date on File: 07/05/20 service: No Current occupational status: unemployed Review of Systems Const Denies daytime sleepiness, Denies excessive sweating, Denies fatigue, Denies fever(s), Denies lethargy, Denies malaise, Denies night sweats, Denies snoring and Denies weight loss Eyes Denies blurry vision and Denies itchy eyes ENT Denies nasal congestion, Denies post nasal drip, Denies sinus pain, Denies sinus pressure and Denies other ( Thrush) Card Denies chest pain, Denies pedal edema, Reports leg edema, Denies dyspnea, Reports dyspnea on exertion, Reports orthopnea and Denies paroxysmal nocturnal dyspnea Resp Denies cough, Denies hemoptysis, Denies excessive phlegm production, Denies dyspnea, Reports dyspnea on exertion, Denies snoring and Denies wheezing GI Denies abdominal pain and Denies heartburn Musc Denies myalgias, Denies arthralgias and Denies joint swelling Skin/Breast Denies rash Neuro Denies memory loss and Denies seizure-like activity Psych Denies abnormal sleep pattern, Denies anxiety and Denies memory loss Endo Denies excessive sweating, Denies fatigue and Denies heat intolerance Wander/Lymph Denies easy bruising Aller/Immun Denies itchy eyes, Denies seasonal rhinorrhea and Denies wheezing Physical Exam Vital Signs: Last Vital Signs Pulse 104 H 11/06/22 14:15 BP 106/62 11/06/22 14:15 Pulse Ox 90 L 11/06/22 14:15 Oxygen Delivery Method Room Air 11/06/22 14:15 BMI result Body Mass Index 44.9 Const General: no acute distress and alert Nutritional Appearance: obese Orientation/consciousness: Other orientation findings ( oriented) HEENT Head: Yes atraumatic Eyes General: appearance normal, both eyes and all related structures Sclerae: sclerae normal EOM: EOMs intact bilaterally Neck Neck: Yes supple Lymphatic: no lymphadenopathy noted Resp Effort & Inspection: normal respiratory effort and no use of accessory muscles Auscultation: clear to auscultation bilaterally Cardio Rate: regular rate Rhythm: regular rhythm Heart sounds: no gallops, no murmurs and no rubs Skin General skin exam: other ( warm) Extrem General: No clubbing, No cyanosis and Yes edema (2+ bilateral) Assessment & Plan Assessment & Plan (1) Asthma: Code(s): J45.909 - Unspecified asthma, uncomplicated Plan: well controlled on current regimen of Xolair and albuterol MDI. Continue current regimen. (2) Environmental allergies: Code(s): Z91.09 - Other allergy status, other than to drugs and biological substances Plan: Excellent control on Xolair. Continue current regimen. (3) JANELL on CPAP: Code(s): G47.33 - Obstructive sleep apnea (adult) (pediatric); Z99.89 - Dependence on other enabling machines and devices Plan: Well controlled on CPAP therapy. Continue current CPAP therapy. (4) ACOSTA (dyspnea on exertion): Code(s): R06.09 - Other forms of dyspnea Plan: worsening symptoms on Bumex, switch back to torsemide, however still with significant lower extremity edema. Will add metolazone on Thursday. Medications: New metolazone 5 mg PO .Thursday 12 tabs 3RF 30 days Coding Level of Care Code Est Pt Level 4 (85680) Diagnoses Asthma J45.909 Environmental allergies Z91.09 JANELL on CPAP G47.33; Z99.89 ACOSTA (dyspnea on exertion) R06.09
== END 2022-11-06 14:38 | disposition home or self-care (01) ==
PROVIDERS: PCP Internal Medicine; Visit Provider Internal Medicine Pulmonary Disease
DX: J45.909 Unspecified asthma, uncomplicated (principal); Z91.09 Other allergy status, other than to drugs and biological substances; G47.33 Obstructive sleep apnea (adult) (pediatric); Z99.89 Dependence on other enabling machines and devices; R06.09 Other forms of dyspnea
CPT/HCPCS: 99214

== ENCOUNTER → 2022-11-06 14:14 | Outpatient (BNVA) | payer MEDICAID, SELFPAY | PROVIDERS: PCP Internal Medicine; Visit Provider Internal Medicine Pulmonary Disease | DX: J45.909 Unspecified asthma, uncomplicated (principal); R06.09 Other forms of dyspnea; G47.33 Obstructive sleep apnea (adult) (pediatric); Z79.899 Other long term (current) drug therapy; Z91.09 Other allergy status, other than to drugs and biological substances; Z99.89 Dependence on other enabling machines and devices | CPT/HCPCS: 99212 ==

== ENCOUNTER 2022-11-17 11:46 | Outpatient (REF) | payer MEDICAID, SELFPAY | END 2022-11-17 11:47 | disposition home or self-care (01) | LOC: HO.MDS 11:46 | PROVIDERS: Visit Provider Internal Medicine Pulmonary Disease | DX: J45.50 Severe persistent asthma, uncomplicated (principal) | CPT/HCPCS: 96372; J2357 ==

== ENCOUNTER → 2022-11-26 23:59 | Outpatient (BNV) | payer MEDICAID, SELFPAY ==
--- NOTE | 2022-11-26 16:41 | MHC.OFFVIS ---
Intake Intake Visit Reasons: Remote HF Monitoring- Medtronic Allergies lisinopril Adverse Reaction (Intermediate, Verified 11/06/22 14:18) cough PFSH Medical History (Updated 11/06/22 @ 15:18 by Nash Ingram MD) Tubular adenoma Vitamin D deficiency Hypoxia Paroxysmal atrial fibrillation Biventricular ICD (implantable cardioverter-defibrillator) in place Chest pain Congestive heart failure (CHF) Dyslipidemia Morbid obesity Diabetic neuropathy associated with type 2 diabetes mellitus penitentiary (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 Social History Household Members: Friend(s) and Other Household Members Other:: sober living home Housing: House Housing Other:: sober house-rents room Are you a primary nurse wound care to a significant other at home: No Do you presently have visiting nurse or other home services: Yes (TEMPERATURE LOGGING OPERATOR 3x week) Alcohol intake: never Patient Tobacco Use Status: Former Tobacco user Quit Date: 2002 Tobacco use type: Cigarette Years Smoked: 40 Substance Use Type: Crack/Cocaine, Former Substance User, Heroin, Marijuana and Prescription Drugs Advance Directives Date on File: 07/05/20 service: No Current occupational status: unemployed Office Procedures Cardiac Device Check Cardiac Device Check Details: HF monitoring Optivol has shown improvement in the volume status in October but since early November it is showing ongoing volume overload. [id number] Cardiac Device Interrogation, cardio physiologic monitor Procedure code (CPT) selection complete Assessment & Plan Assessment & Plan (1) Chronic heart failure: Code(s): I50.9 - Heart failure, unspecified Orders: Orders AMB Cardiac Device Follow-up Today I50.9 - Heart failure, unspecified Coding Level of Care Code Procedure Only Diagnoses Chronic heart failure I50.9 CPT Codes Cardiac Device Check - Cardiac Device 15: [id number] Cardiac Device Interrogation, cardio physiologic monitor ([id number])
== END ==
PROVIDERS: PCP Internal Medicine; Visit Provider Internal Medicine Cardiovascular Disease
DX: I50.22 Chronic systolic (congestive) heart failure (principal); Z95.810 Presence of automatic (implantable) cardiac defibrillator
CPT/HCPCS: 93297

== ENCOUNTER 2022-12-01 11:51 | Outpatient (REF) | payer MEDICAID, SELFPAY | END 2022-12-01 11:52 | disposition home or self-care (01) | LOC: HO.MDS 11:51 | PROVIDERS: Visit Provider Internal Medicine Pulmonary Disease | DX: J45.50 Severe persistent asthma, uncomplicated (principal) | CPT/HCPCS: 96372; J2357 ==

== ENCOUNTER 2022-12-02 14:04 | Outpatient (AMB) | payer MEDICAID, SELFPAY ==
[2022-12-02 14:14] VITALS: BP 119/62; PULSE 93; O2SAT 94; BMI 45.3
--- NOTE | 2022-12-02 14:14 | MHC.OFFVIS ---
Intake Vital Signs 12/02/22 14:14 Height 5 ft 11 in Weight 325 lb 2.909 oz BMI 45.3 BP 119/62 Blood Pressure Location Rt brachial Position Sitting Pulse 93 Pulse Source Doppler Pulse Oximetry (%) 94 Oxygen Delivery Method Room Air Intake Visit Reasons: asthma Allergies lisinopril Adverse Reaction (Intermediate, Verified 12/02/22 14:18) cough HPI asthma HPI Details 62-year-old gentleman with underlying history significant for systolic heart failure with EF of 10-15% on diuretic therapy prior history of cocaine abuse followed for allergic asthma and JANELL.? Patient continues on Xolair and albuterol MDI with excellent control of his asthma symptoms.? He denies recent asthma exacerbations. After the last office visit patient was started on metolazone in addition to torsemide which significantly improved his dyspnea on exertion symptoms, however resulted noncardiac uses. He was evaluated in ER and his metolazone was stopped. Now his lower extremity edema and dyspnea on exertion are slowly worsening. 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 Social History Household Members: Friend(s) and Other Household Members Other:: sober living home Housing: House Housing Other:: sober house-rents room Are you a primary health care consultant to a significant other at home: No Do you presently have visiting nurse or other home services: Yes (ASSOCIATE MANAGER AFFILIATE MARKETING 3x week) Alcohol intake: never Patient Tobacco Use Status: Former Tobacco user Quit Date: 2002 Tobacco use type: Cigarette Years Smoked: 40 Substance Use Type: Crack/Cocaine, Former Substance User, Heroin, Marijuana and Prescription Drugs Advance Directives Date on File: 07/05/20 service: No Current occupational status: unemployed Review of Systems Const Denies daytime sleepiness, Denies excessive sweating, Denies fatigue, Denies fever(s), Denies lethargy, Denies malaise, Denies night sweats, Denies snoring and Denies weight loss Eyes Denies blurry vision and Denies itchy eyes ENT Denies nasal congestion, Denies post nasal drip, Denies sinus pain, Denies sinus pressure and Denies other ( Thrush) Card Denies chest pain, Reports pedal edema, Denies dyspnea, Reports dyspnea on exertion, Denies orthopnea and Denies paroxysmal nocturnal dyspnea Resp Denies cough, Denies hemoptysis, Denies excessive phlegm production, Denies dyspnea, Reports dyspnea on exertion, Denies snoring and Denies wheezing GI Denies abdominal pain and Denies heartburn Musc Denies myalgias, Denies arthralgias and Denies joint swelling Skin/Breast Denies rash Neuro Denies memory loss and Denies seizure-like activity Psych Denies abnormal sleep pattern, Denies anxiety and Denies memory loss Endo Denies excessive sweating, Denies fatigue and Denies heat intolerance Wander/Lymph Denies easy bruising Aller/Immun Denies itchy eyes, Denies seasonal rhinorrhea and Denies wheezing Physical Exam Vital Signs: Last Vital Signs Pulse 93 12/02/22 14:14 BP 119/62 12/02/22 14:14 Pulse Ox 94 12/02/22 14:14 Oxygen Delivery Method Room Air 12/02/22 14:14 BMI result Body Mass Index 45.3 Const General: no acute distress and alert Nutritional Appearance: not obese Orientation/consciousness: Other orientation findings ( oriented) HEENT Head: Yes atraumatic Eyes General: appearance normal, both eyes and all related structures Sclerae: sclerae normal EOM: EOMs intact bilaterally Neck Neck: Yes supple Lymphatic: no lymphadenopathy noted Resp Effort & Inspection: normal respiratory effort and no use of accessory muscles Auscultation: clear to auscultation bilaterally Cardio Rate: regular rate Rhythm: regular rhythm Heart sounds: no gallops, no murmurs and no rubs Skin General skin exam: other ( warm) Extrem General: No clubbing, No cyanosis and Yes edema (1+ bilateral) Assessment & Plan Assessment & Plan (1) Asthma: Code(s): J45.909 - Unspecified asthma, uncomplicated Plan: Well controlled on current regimen of Xolair and albuterol MDI. Continue current regimen. (2) Environmental allergies: Code(s): Z91.09 - Other allergy status, other than to drugs and biological substances Plan: Well controlled on Xolair. Continue current regimen. (3) ACOSTA (dyspnea on exertion): Code(s): R06.09 - Other forms of dyspnea Plan: Torsemide/metolazone resulting in over diuresis, though with significant improvement in dyspnea on exertion. Patient has been taking of metolazone. Will refer to Nephrology for further follow-up. Orders: Referrals Nephrology Referral N18.9 - Chronic kidney disease, unspecified, R06.09 - Other forms of dyspnea, R60.0 - Localized edema Coding Level of Care Code Est Pt Level 4 (73502) Diagnoses Asthma J45.909 Environmental allergies Z91.09 ACOSTA (dyspnea on exertion) R06.09
== END 2022-12-02 14:28 | disposition home or self-care (01) ==
PROVIDERS: PCP Internal Medicine; Visit Provider Internal Medicine Pulmonary Disease
DX: J45.909 Unspecified asthma, uncomplicated (principal); Z91.09 Other allergy status, other than to drugs and biological substances; R06.09 Other forms of dyspnea
CPT/HCPCS: 99214

== ENCOUNTER → 2022-12-02 14:04 | Outpatient (BNVA) | payer MEDICAID, SELFPAY | PROVIDERS: PCP Internal Medicine; Visit Provider Internal Medicine Pulmonary Disease | DX: J45.909 Unspecified asthma, uncomplicated (principal); R06.09 Other forms of dyspnea; Z91.09 Other allergy status, other than to drugs and biological substances | CPT/HCPCS: 99212 ==

== ENCOUNTER 2022-12-03 15:21 | Outpatient (REF) | payer MEDICAID, SELFPAY ==
[2022-12-03 17:31] LABS: Anion Gap 16 (12-20); Blood Urea Nitrogen 27 mg/dL (9-16); Calcium 9.2 mg/dL (8.4-10.2); Carbon Dioxide 32 mmol/L (22-29); Chloride 99 mmol/L (96-108); Estimated Glomerular Filt Rate 50; Glucose Random 202 mg/dL (60-115); Potassium 3.8 mmol/L (3.3-5.1); Sodium 143 mmol/L (135-145)
== END 2022-12-03 15:22 | disposition home or self-care (01) ==
LOC: HO.HHCL 15:21
PROVIDERS: Visit Provider Internal Medicine
DX: N17.9 Acute kidney failure, unspecified (principal)
CPT/HCPCS: 36415; 80048

== ENCOUNTER 2022-12-10 10:55 | Outpatient (AMB) | payer MEDICAID, SELFPAY ==
--- NOTE | 2022-12-10 11:39 | A.OFFVIS_ITS ---
Intake Vital Signs 12/10/22 11:40 Height 5 ft 11 in Weight 330 lb 11.094 oz BMI 46.1 BP 120/62 Blood Pressure Location Lt brachial Position Sitting Pulse 82 Pulse Source Pulse Oximeter Intake Visit Reasons: 2 MON FUP PER DC Intake Note: 2 month f/u patient is felling more tired then usual ,and sometimes gets chest pain Legislative Correspondent Required: No Allergies lisinopril Adverse Reaction (Intermediate, Verified 12/10/22 11:47) cough Medication List - Last Reconciled 12/10/22 by Lionel Paul MD albuterol sulfate 90 mcg/actuation 2 puffs inhalation Q4-6H PRN atorvastatin 40 mg PO DAILY BD Insulin Syringe U-500 (insulin U-500 syringe-needle) Twice a day NS dulaglutide (Trulicity) 3 mg (0.5 mL) subcut QWEEK empagliflozin (Jardiance) 10 mg PO DAILY ezetimibe 10 mg PO DAILY flash glucose scanning reader (ACTIVE NetworkStyle Home 2 Nice) As directed flash glucose sensor (FreeStyle Home 2 Sensor kit) DIRECTED EVERY 2 WEEKS fluticasone propionate 50 mcg/actuation 1 spray intranasal BID gabapentin 300 mg PO TID insulin regular hum U-500 conc (Humulin R U-500 (Concentrated) Insulin) 135 units before breakfast and 40 units before dinner subcutaneously; metolazone 5 mg PO .Thursday 30 days metoprolol succinate ER 100 mg PO DAILY naproxen (Naprosyn) 500 mg PO Q12H PRN 30 days omalizumab (Xolair) 375 mg subcut Q2W 28 days omeprazole 40 mg PO DAILY rivaroxaban (Xarelto) 20 mg PO QPM 90 days sacubitril-valsartan 49-51 mg (Entresto) 1 tab PO BID 90 days sennosides (Natural Senna Laxative) 8.6 mg PO BEDTIME torsemide 60 mg PO BID 90 days HPI HPI Comments History of Present Illness Details 62-year-old gentleman here for follow up . He previously had nonischemic cardiomyopathy which was in the setting of cocaine and heroin abuse. He was found to have significant PVC burden of 40,000 PVCs in 24 hours and was put on amiodarone with improvement in ejection fraction to 50- 55%. While on amiodarone he had some changes on pulmonary function testing with moderately reduced DLCO and we decided to stop the amiodarone. He previously had cardiac catheterization which did not show any coronary artery disease. In 2020 he was admitted at [facility] followed by [facility] for congestive heart failure. At [facility] was found to have difficult to control atrial flutter and his ejection fraction was severely reduced. Subsequently was admitted again at [facility] and it appears he had Bi V AICD placement. He had a device interrogation done and it showed rising thoracic impedance as well as runs of ventricular tachycardia which was nonsustained. He did not get any therapies from his device. His Bumex was changed to torsemide because he continued to gain weight while taking the diuretics. Since then he has been doing well. His device interrogation has shown that he is biventricular pacing more than 95% time now. Repeat echocardiography has shown normal left ventricular function. He returns for follow-up. He has been experiencing some shortness of breath. He also feels tired. He takes torsemide in the morning and at night around 9-10 o'clock. He is saying that he urinates all night and does not sleep well. He also has joint issues including back and right knee issues ongoing. 12/10/22: He is here for f/u. He was give n metolazone by pulm which helped diuresis but he developed hypokalemia and was in the ER. He is saying he has not been taking the metolazone since then. He has fatigue and dyspnea. He has been taking torsemide but misses it on some days. He is complaining of some left sided chest pains off and on. 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 Social History Household Members: Friend(s) and Other Household Members Other:: sober living home Housing: House Housing Other:: sober house-rents room Are you a primary care rep to a significant other at home: No Do you presently have visiting nurse or other home services: Yes (TUG BOAT CAPTAIN 3x week) Alcohol intake: never Patient Tobacco Use Status: Former Tobacco user Quit Date: 2002 Tobacco use type: Cigarette Years Smoked: 40 Substance Use Type: Crack/Cocaine, Former Substance User, Heroin, Marijuana and Prescription Drugs Advance Directives Date on File: 07/05/20 service: No Current occupational status: unemployed Review of Systems ENT Reports dizziness Card Denies chest pain, Denies chest pain at rest, Denies chest pain with activity, Denies rapid heart rate, Denies pedal edema, Denies edema, Denies leg edema, Denies lightheadedness, Denies palpitations, Denies dyspnea, Denies dyspnea on exertion and Denies orthopnea Resp Denies cough, Denies dyspnea and Denies dyspnea on exertion GI Denies hematochezia and Denies change in stool character Musc Denies abnormal gait, Reports limited range of motion, Reports muscle cramps, Denies muscle weakness, Denies numbness, Denies radiating pain into limb, Denies stiffness and Denies tingling Neuro Denies abnormal gait, Reports dizziness, Denies numbness and Denies tingling Endo Denies palpitations Physical Exam Vital Signs: Last Vital Signs Pulse 82 12/10/22 11:40 BP 120/62 12/10/22 11:40 BMI result Body Mass Index 46.1 GENERAL APPEARANCE: In no acute distress. NECK: no carotid bruit. SKIN: no suspicious lesions, warm and dry. HEART: no murmurs, regular rate and rhythm. LUNGS: Clear to auscultation bilaterally ABDOMEN: soft,? non tender, mildly distended. EXTREMITIES:? + edema. PERIPHERAL PULSES: equal. NEUROLOGIC: No gross deficits, AAO X 3 Assessment & Plan Assessment & Plan (1) Chronic heart failure: Code(s): I50.9 - Heart failure, unspecified (2) Stable angina: Code(s): I20.89 - Other forms of angina pectoris (3) Morbid obesity: Code(s): E66.01 - Morbid (severe) obesity due to excess calories Plan 62 male here for f/u. He has chronic heart failure. He is overloaded mildly but has not been taking torsemide regularly. He was taking metolazone but developed low potassium and has been off the metolazone currently. Advised him to check his weight daily and call us if more than 2 pounds weight gain. Advised him to take torsemide BID. For stable angina- referring for cardiac rehab. He will d/w endo about using mounjaro or ozempic for weight loss. f/u in couple of months. Orders: Orders Cardiac Rehab Today I20.89 - Other forms of angina pectoris, Z98.61 - Coronary angioplasty status Medications: Discontinued metolazone Discontinued Reason: None 5 mg PO .Thursday 30 days 12 tabs 3RF Coding Level of Care Code Est Pt Level 4 (67930) Diagnoses Chronic heart failure I50.9 Stable angina I20.89 Morbid obesity E66.01
[2022-12-10 11:40] VITALS: BP 120/62; PULSE 82; BMI 46.1
== END 2022-12-10 12:33 | disposition home or self-care (01) ==
PROVIDERS: PCP Internal Medicine; Visit Provider Internal Medicine Cardiovascular Disease
DX: I50.9 Heart failure, unspecified (principal); I20.89 Other forms of angina pectoris; E66.01 Morbid (severe) obesity due to excess calories
CPT/HCPCS: 99214

== ENCOUNTER → 2022-12-10 10:55 | Outpatient (BNVA) | payer MEDICAID, SELFPAY | PROVIDERS: PCP Internal Medicine; Visit Provider Internal Medicine Cardiovascular Disease | DX: I50.9 Heart failure, unspecified (principal); I20.89 Other forms of angina pectoris; E66.01 Morbid (severe) obesity due to excess calories; Z68.42 Body mass index [BMI] 45.0-49.9, adult | CPT/HCPCS: 99212 ==

== ENCOUNTER 2022-12-16 11:53 | Outpatient (REF) | payer MEDICAID, SELFPAY | END 2022-12-16 11:54 | disposition home or self-care (01) | LOC: HO.MDS 11:53 | PROVIDERS: Visit Provider Internal Medicine Pulmonary Disease | DX: J45.50 Severe persistent asthma, uncomplicated (principal) | CPT/HCPCS: 96372; J2357 ==

== ENCOUNTER → 2022-12-27 23:59 | Outpatient (BNV) | payer MEDICAID, SELFPAY ==
--- NOTE | 2023-01-05 10:57 | A.OFFVIS_ITS ---
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 Social History Household Members: Friend(s) and Other Household Members Other:: sober living home Housing: House Housing Other:: sober house-rents room Are you a primary healthcare corporate account director to a significant other at home: No Do you presently have visiting nurse or other home services: Yes (IVORY POLISHER 3x week) Alcohol intake: never Patient Tobacco Use Status: Former Tobacco user Quit Date: 2002 Tobacco use type: Cigarette Years Smoked: 40 Substance Use Type: Crack/Cocaine, Former Substance User, Heroin, Marijuana and Prescription Drugs Advance Directives Date on File: 07/05/20 service: No Current occupational status: unemployed Office Procedures Cardiac Device Check Cardiac Device Check Details: Biv ICD Battery life 4.1 years. CAUSTIC CRESYLATE SHIFT SUPERINTENDENT 99% No new alerts. [id number] Cardiac Device Interrogation, pacemaker or defibrillator Procedure code (CPT) selection complete Assessment & Plan Assessment & Plan (1) Chronic diastolic heart failure: Code(s): I50.32 - Chronic diastolic (congestive) heart failure Coding Level of Care Code Procedure Only Diagnoses Chronic diastolic heart failure I50.32 CPT Codes Cardiac Device Check - Cardiac Device 14: [id number] Cardiac Device Interrogation, pacemaker or defibrillator ([id number])
== END ==
PROVIDERS: PCP Internal Medicine; Visit Provider Internal Medicine Cardiovascular Disease
DX: I50.32 Chronic diastolic (congestive) heart failure (principal); Z95.810 Presence of automatic (implantable) cardiac defibrillator
CPT/HCPCS: 93295

== ENCOUNTER → 2022-12-27 23:59 | Outpatient (BNV) | payer MEDICAID, SELFPAY ==
--- NOTE | 2022-12-29 14:19 | MHC.OFFVIS ---
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 Social History Household Members: Friend(s) and Other Household Members Other:: sober living home Housing: House Housing Other:: sober house-rents room Are you a primary career and technology education teacher to a significant other at home: No Do you presently have visiting nurse or other home services: Yes (MODULAR HOME CREW MEMBER 3x week) Alcohol intake: never Patient Tobacco Use Status: Former Tobacco user Quit Date: 2002 Tobacco use type: Cigarette Years Smoked: 40 Substance Use Type: Crack/Cocaine, Former Substance User, Heroin, Marijuana and Prescription Drugs Advance Directives Date on File: 07/05/20 service: No Current occupational status: unemployed Office Procedures Cardiac Device Check Cardiac Device Check Details: HF monitoring Stable thoracic impedance. [id number] Cardiac Device Interrogation, cardio physiologic monitor Procedure code (CPT) selection complete Assessment & Plan Assessment & Plan (1) Chronic diastolic heart failure: Code(s): I50.32 - Chronic diastolic (congestive) heart failure Orders: Orders AMB Cardiac Device Follow-up 12/27/22 I50.32 - Chronic diastolic (congestive) heart failure Coding Level of Care Code Procedure Only Diagnoses Chronic diastolic heart failure I50.32 CPT Codes Cardiac Device Check - Cardiac Device 15: [id number] Cardiac Device Interrogation, cardio physiologic monitor ([id number])
== END ==
PROVIDERS: PCP Internal Medicine; Visit Provider Internal Medicine Cardiovascular Disease
DX: I50.32 Chronic diastolic (congestive) heart failure (principal)
CPT/HCPCS: 93297

== ENCOUNTER 2022-12-29 11:49 | Outpatient (REF) | payer MEDICAID, SELFPAY | END 2022-12-29 11:50 | disposition home or self-care (01) | LOC: HO.MDS 11:49 | PROVIDERS: Visit Provider Internal Medicine Pulmonary Disease | DX: J45.50 Severe persistent asthma, uncomplicated (principal) | CPT/HCPCS: 96372; J2357 ==

== ENCOUNTER 2023-01-12 11:00 | Outpatient (REF) | payer MEDICARE, MEDICAID, SELFPAY | END 2023-01-12 11:01 | disposition home or self-care (01) | LOC: HO.MDS 11:00 | PROVIDERS: Visit Provider Internal Medicine Pulmonary Disease | DX: J45.50 Severe persistent asthma, uncomplicated (principal) | CPT/HCPCS: 96372; J2357 ==

== ENCOUNTER 2023-01-26 11:02 | Outpatient (REF) | payer MEDICARE, MEDICAID, SELFPAY | END 2023-01-26 11:03 | disposition home or self-care (01) | LOC: HO.MDS 11:02 | PROVIDERS: Visit Provider Internal Medicine Pulmonary Disease | DX: J45.50 Severe persistent asthma, uncomplicated (principal) | CPT/HCPCS: 96372; J2357 ==

== ENCOUNTER → 2023-01-27 23:59 | Outpatient (BNV) | payer MEDICARE, MEDICAID, SELFPAY ==
--- NOTE | 2023-01-28 14:32 | MHC.OFFVIS ---
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 Household Members: Friend(s) and Other Household Members Other:: sober living home Housing: House Housing Other:: sober house-rents room Are you a primary children's zoo caretaker to a significant other at home: No Do you presently have visiting nurse or other home services: Yes (WORK ADJUSTMENT INSTRUCTOR 3x week) Alcohol intake: never Patient Tobacco Use Status: Former Tobacco user Quit Date: 2002 Tobacco use type: Cigarette Years Smoked: 40 Substance Use Type: Crack/Cocaine, Former Substance User, Heroin, Marijuana and Prescription Drugs Advance Directives Date on File: 07/05/20 service: No Current occupational status: unemployed Office Procedures Cardiac Device Check Cardiac Device Check Details: HF monitoring Optivol consistent with ongoing fluid overload. [id number] Cardiac Device Interrogation, cardio physiologic monitor Procedure code (CPT) selection complete Assessment & Plan Assessment & Plan (1) Chronic heart failure: Code(s): I50.9 - Heart failure, unspecified Orders: Orders AMB Cardiac Device Follow-up 01/27/23 I50.9 - Heart failure, unspecified Coding Level of Care Code Procedure Only Diagnoses Chronic heart failure I50.9 CPT Codes Cardiac Device Check - Cardiac Device 15: [id number] Cardiac Device Interrogation, cardio physiologic monitor ([id number])
== END ==
PROVIDERS: PCP Internal Medicine; Visit Provider Internal Medicine Cardiovascular Disease
DX: I50.22 Chronic systolic (congestive) heart failure (principal); Z95.810 Presence of automatic (implantable) cardiac defibrillator
CPT/HCPCS: 93297

== ENCOUNTER 2023-02-09 12:24 | Outpatient (REF) | payer OTHER, SELFPAY | END 2023-02-09 12:25 | disposition home or self-care (01) | LOC: HO.MDS 12:24 | PROVIDERS: PCP Internal Medicine; Visit Provider Internal Medicine Pulmonary Disease | DX: J45.50 Severe persistent asthma, uncomplicated (principal) | CPT/HCPCS: 96372; J2357 ==

== ENCOUNTER 2023-02-23 11:47 | Outpatient (REF) | payer OTHER, SELFPAY | END 2023-02-23 11:48 | disposition home or self-care (01) | LOC: HO.MDS 11:47 | PROVIDERS: PCP Internal Medicine; Visit Provider Internal Medicine Pulmonary Disease | DX: J45.50 Severe persistent asthma, uncomplicated (principal) | CPT/HCPCS: 96372 ==

== ENCOUNTER 2023-03-03 14:03 | Emergency (ER) | payer OTHER, SELFPAY ==
--- NOTE | ~2023-03-03 | XR_ITS ---
EXAMINATION: XR CHEST CLINICAL INFORMATION: SOB COMPARISON: None available. TECHNIQUE: Frontal view of the chest was obtained. FINDINGS: No significant abnormality is noted involving the heart, lungs, mediastinum, bony thorax or soft tissues. XR/XR chest 1V IMPRESSION: Unremarkable chest examination.
--- NOTE | 2023-03-03 14:05 | ECG_ITS ---
Test Reason : sob Blood Pressure : / mmHG Vent. Rate : 085 BPM Atrial Rate : 085 BPM P-R Int : 140 ms QRS Dur : 152 ms QT Int : 456 ms P-R-T Axes : 057 240 058 degrees QTc Int : 542 ms Atrial-sensed ventricular-paced rhythm Abnormal ECG When compared with ECG of 03-SEP-2020 13:39, Vent. rate has decreased BY 17 BPM Referred By: Generic ED Physician Electronically Signed By:MC GEE
[2023-03-03 14:09] VITALS: BP 118/78; PULSE 80; PULSE 84; RESP 24; TEMP 36.8; O2SAT 89; O2SAT 96; BMI 48.7
[2023-03-03 14:19] VITALS: PULSE 81; RESP 22; O2SAT 94
[2023-03-03] MEDS: Albuterol Sulfate 5 MG, Albuterol/Iprat 2.5/0.5MG 3 ML 3 ML INHALE (14:19)
[2023-03-03 14:23] VITALS: PULSE 81; RESP 22; O2SAT 94
[2023-03-03 14:26] LABS: MANUAL DIFF FLAG NO
[2023-03-03 14:31] LABS: Basophils Percent Auto 0.6 % (0-2); Eosinophils Absolute Auto 0.3 X10*3/uL (0.0-0.4); Eosinophils Percent Auto 4.4 % (0-4); Hematocrit 44.9 % (42.0-52.0); Hemoglobin 14.2 g/dl (14.0-18.0); Imm Gran Abs Auto 0.03 X10*3/uL (0.00-0.03); Imm Gran Pct Auto 0.5 % (0.0-0.4); Lymphocytes Absolute Auto 1.2 X10*3/uL (1.2-4.9); Lymphocytes Percent Auto 18.8 % (20-40); Mean Corpuscular HGB Conc 31.6 g/dl (31.0-36.0); Mean Corpuscular Hemoglobin 28.5 pg (27.0-33.0); Monocytes Absolute Auto 0.7 X10*3/uL (0.1-1.2); Monocytes Percent Auto 10.8 % (2-11); Neutrophils Absolute Auto 4.1 x10*3/uL (2.0-8.3); Neutrophils Percent Auto 64.9 % (45-73); Platelet Count 244 X10*3/uL (160-400); Red Blood Count 4.99 X10*6/uL (4.60-5.80); Red Cell Distribution Width 14.6 % (11.0-16.0); White Blood Count 6.3 X10*3/uL (4.8-10.8)
[2023-03-03 14:36] VITALS: PULSE 82; RESP 18; O2SAT 97
[2023-03-03 14:38] VITALS: PULSE 81; RESP 22; O2SAT 95
[2023-03-03] MEDS: Albuterol Sulfate 5 MG, Albuterol Sulfate (0.083%) 2.5 MG 7.5 MG INHALE (14:38)
[2023-03-03 14:47] LABS: Anion Gap 13 (12-20); Blood Urea Nitrogen 26 mg/dL (9-16); Carbon Dioxide 31 mmol/L (22-29); Chloride 103 mmol/L (96-108); Estimated Glomerular Filt Rate > 60; Glucose Random 95 mg/dL (60-115); Sodium 143 mmol/L (135-145)
--- NOTE | 2023-03-03 14:49 | PC.NURSE ---
Seen by respiratory, patient receiving updraft at this time
[2023-03-03 14:55] LABS: Troponin-I High Sensitivity 17.6 ng/L (<3.5-35.0)
--- NOTE | 2023-03-03 15:28 | ED.SOB ---
HPI - SOB/Dyspnea General Chief Complaint: Dyspnea Stated Complaint: CP SOB Time Seen by Provider: 03/03/23 15:03 Source: patient Mode of arrival: ambulatory Limitations: no limitations History of Present Illness HPI Narrative: Patient comes to the emergency room from his primary care physician's office. Patient states that he was there today for a sick visit, patient has been coughing and wheezing for 4 days. Patient feeling short of breath. Patient denies any chest pain. Patient states that he does not have history of asthma or COPD. Patient states that he does not use oxygen at home, only CPAP at night. Related Data Home Medications Medication Instructions Recorded Confirmed albuterol sulfate 90 mcg/actuation 2 puff inhalation Q4-6H PRN 08/31/20 12/10/22 aerosol inhaler Shortness Of Breath metoprolol succinate 100 mg 100 mg PO DAILY 08/31/20 12/10/22 tablet,extended release 24 hr atorvastatin 40 mg tablet 40 mg PO DAILY 12/10/22 12/10/22 gabapentin 300 mg capsule 300 mg PO TID 12/10/22 12/10/22 Previous Rx's Medication Instructions Recorded flash glucose scanning reader #1 ea 11/16/20 ([facility] [place]) ezetimibe 10 mg tablet 10 mg PO DAILY #30 tabs 07/18/21 omeprazole 40 mg capsule,delayed 40 mg PO DAILY #30 caps 04/21/22 release naproxen 500 mg tablet (Naprosyn) 500 mg PO Q12H PRN pain 30 days 05/12/22 #60 tabs sennosides 8.6 mg tablet (Natural 8.6 mg PO BEDTIME constipation #90 07/22/22 Senna Laxative) tabs sacubitril 49 mg-valsartan 51 mg 1 tab PO BID 90 days #180 tabs 08/08/22 tablet (Entresto) BD Insulin Syringe U-500 1/2 mL 31 #180 ea 08/18/22 gauge x 15/64 (insulin U-500 syringe-needle) torsemide 60 mg tablet 60 mg PO BID 90 days #180 tabs 10/30/22 flash glucose sensor (FreeStyle #2 ea 11/18/22 Home 2 Sensor kit) empagliflozin 10 mg tablet 10 mg PO DAILY #30 tabs 12/30/22 (Jardiance) fluticasone propionate 50 1 spray intranasal BID #16 grams 01/15/23 mcg/actuation nasal spray,suspension insulin regular hum U-500 conc 500 See Rx Instructions subcut 01/27/23 unit/mL subcutaneous soln (Humulin .COMPLEX #20 mL R U-500 (Concentrated) Insulin) omalizumab 150 mg/mL subcutaneous 300 mg (2 mL) subcut Q2W 28 days 02/09/23 syringe (Xolair) #4 mL omalizumab 75 mg/0.5 mL 75 mg (0.5 mL) subcut Q2W 28 days 02/09/23 subcutaneous syringe (Xolair) #1 mL dulaglutide 3 mg/0.5 mL 3 mg (0.5 mL) subcut QWEEK #2 mL 02/23/23 subcutaneous pen injector (Trulicity) rivaroxaban 20 mg tablet (Xarelto) 20 mg PO QPM #30 tabs 02/24/23 albuterol sulfate 90 mcg/actuation 2 puff inhalation Q4-6H PRN 03/03/23 aerosol inhaler shortness of breath or wheezing #8.5 grams prednisone 50 mg tablet 50 mg PO DAILY #4 tabs 03/03/23 Allergies Allergy/AdvReac Type Severity Reaction Status Date / Time lisinopril AdvReac Intermediate cough Verified 12/10/22 11:47 Review of Systems Review of Systems: Constitutional : No Weight loss, No Fever, No Chills, No Night Sweats, No Fatigue, No Malaise ENT/Mouth : No Hearing loss, No Ear Pain, No Nasal Congestion, No Sinus Pain, No Hoarseness, No sore throat, No Rhinorrhea, No Swallowing Difficulty Eyes: No Eye Pain, No Swelling, No Redness, No Foreign Body, No Discharge, No Vision Changes Cardiovascular : No Chest Pain, complaining of SOB, no orthopnea, no edema or palpitations Respiratory : Complaining of productive cough for 4 days, wheezing, shortness of breath worse with exertion Gastrointestinal : No Nausea, No Vomiting, No Diarrhea, No Constipation, No abdominal Pain, No Hematochezia, No Melena Genitourinary : no irregular bleeding, No Dysuria, No Urinary Frequency, No Hematuria, No Urinary Incontinence, No Urgency, No Flank Pain, No Urinary Flow Changes, No Hesitancy Musculoskeletal : No joint pain, No Myalgias, No Joint Swelling Skin : No Skin Lesions, No rash Neuro : No Weakness, No Numbness, No Paresthesias, No Loss of Consciousness, No Dizziness, No Headache Psych : No Anxiety/Panic, No Depression, No SI/HI/AH/VH, No Social Issues, Heme/Lymph: No Bruising, No Bleeding,No Lymphadenopathy Endocrine : No Polyuria, No Polydipsia, No Temperature Intolerance [facility] Past Medical History Medical History Tubular adenoma Vitamin D deficiency Hypoxia Paroxysmal atrial fibrillation Biventricular ICD (implantable cardioverter-defibrillator) in place Chest pain Congestive heart failure (CHF) Dyslipidemia Morbid obesity Diabetic neuropathy associated with type 2 diabetes mellitus longterm (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 of 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) Alcohol intake: former Patient Tobacco Use Status: Former Tobacco user Quit Date: 2002 Tobacco use type: Cigarette Years Smoked: 40 Smoked in Last 30 Days: No Use of substances other than those prescribed or required for medical reasons: No Substance Use Type: Crack/Cocaine, Former Substance User, Heroin, Marijuana and Prescription Drugs Advance Directives: Yes Advance Directives on File: Yes Advance Directives Date on File: 07/05/20 service: No Current occupational status: unemployed Physical Exam Vital Signs: Vital Signs: Last Vital Signs Temp 98.2 F 03/03/23 14:09 Pulse 90 03/03/23 16:45 Resp 19 03/03/23 16:45 BP 117/56 L 03/03/23 16:45 Pulse Ox 95 03/03/23 16:45 O2 Del Method Room Air 03/03/23 16:45 O2 Flow Rate 2 03/03/23 14:36 BMI result Body Mass Index 48.7 Const: Other: Appearance: Alert. Oriented X3. No acute distress. Morbidly obese Eyes: Pupils equal, round and reactive to light. ENT: Pharynx normal. Neck: Normal inspection. Neck supple. No lymph nodes noted. No crepitus CVS: Normal heart rate and rhythm. Pulses normal. Normal S1 and S2 Respiratory: No respiratory distress. Breath sounds normal. Bilateral wheezing Abdomen: Soft and nontender. No rigidity. No distention. Skin: Skin warm and dry. Normal skin color. Normal skin turgor. Extremities: No lower extremity edema. No Lacerations. No Rash Neuro: Oriented X 3. No motor deficit. No sensory deficit. Moving all extremities. No slurred speech. CN 2 through 12 grossly intact Psych: calm, cooperative, normal affect Course Course Course Narrative: -patient wheezing on arrival, received 2 doses of 7.5 mg of albuterol Medications Administered Discontinued Medications Generic Name Dose Route Start Last Admin Trade Name Freq PRN Reason Stop Dose Admin Albuterol Sulfate 5 mg/ 7.5 mg 03/03/23 14:32 03/03/23 14:38 Albuterol Sulfate 2.5 mg INHALE 03/03/23 14:33 7.5 mg ONCE ONE Administration Albuterol Sulfate 5 mg/ 0 mg 03/03/23 14:15 03/03/23 14:19 Albuterol/Ipratropium 3 ml INHALE 03/03/23 14:16 1 each ONCE ONE Administration Gabapentin 600 mg 03/03/23 15:31 03/03/23 15:53 Gabapentin 600 Mg Tablet PO 03/03/23 15:32 600 mg ONCE ONE Administration Medical Decision Making Medical Decision Making MDM Narrative: -my interpretation of labs: Normal hematology at baseline, chemistry at baseline, troponin 17.6 at baseline, BNP within normal limits -my interpretation of chest x-ray: No infiltrates -on arrival, patient received 2 nebulization treatments, patient is saturating now 95% on room air. Patient was walked around the ED, patient's oxygen saturation remained around 89-95% on room air. Patient had no trouble breathing. -patient states that he feels well, patient will be sent home shortly. Patient's vital stable, oxygen saturation 95% on room air, no fever, not tachycardic, blood pressure 117/56. Differential Diagnosis Differential Diagnoses: The differential diagnosis associated with the presentation includes (Asthma exacerbation, bronchitis, RSV, influenza, COVID, CHF) Admission/Observation Consideration of admission/observation: Escalation of care including admission/observation considered (Given patient's initial presentation, admission was considered) Lab Data MDM Lab Attestation statement: I reviewed the patient's lab results. 03/03/23 14:20 03/03/23 14:20 Labs: Lab Results 03/03/23 03/03/23 Range/Units 14:20 15:45 WBC 6.3 (4.8-10.8) X10*3/uL RBC 4.99 (4.60-5.80) X10*6/uL Hgb 14.2 (14.0-18.0) g/dl Hct 44.9 (42.0-52.0) % MCV 90.0 (80.0-98.0) fL MCH 28.5 (27.0-33.0) pg MCHC 31.6 (31.0-36.0) g/dl RDW 14.6 (11.0-16.0) % Plt Count 244 D (160-400) X10*3/uL MPV 9.0 L (9.4-12.4) fL Immature Gran % (Auto) 0.5 H (0.0-0.4) % Neut % (Auto) 64.9 (45-73) % Lymph % (Auto) 18.8 L (20-40) % [place] % (Auto) 10.8 (2-11) % Eos % (Auto) 4.4 H (0-4) % Baso % (Auto) 0.6 (0-2) % Lymph # (Auto) 1.2 (1.2-4.9) X10*3/uL [place] # (Auto) 0.7 (0.1-1.2) X10*3/uL Eos # (Auto) 0.3 (0.0-0.4) X10*3/uL Baso # (Auto) 0.0 (0.0-0.2) X10*3/uL Abs Immat Gran (auto) 0.03 (0.00-0.03) X10*3/uL Absolute Neuts (auto) 4.1 (2.0-8.3) x10*3/uL Absolute Nucleated RBC 0.000 (0.0-0.012) X10*3/uL Nucleated RBC % (auto) 0.0 (0.0-0.2) /100WBC Sodium 143 (135-145) mmol/L Potassium 4.0 (3.3-5.1) mmol/L Chloride 103 (96-108) mmol/L Carbon Dioxide 31 H (22-29) mmol/L Anion Gap 13 (12-20) BUN 26 H (9-16) mg/dL Creatinine 1.20 (0.5-1.4) mg/dL Estim Creat Clear Calc 86.0 Estimated GFR > 60 Random Glucose 95 (60-115) mg/dL Calcium 9.0 (8.4-10.2) mg/dL Troponin I High Sens 17.6 (<3.5-35.0) ng/L B-Natriuretic Peptide 72 (<100) pg/mL Influenza Type A (PCR) NEGATIVE (Negative) Influenza Type B (PCR) NEGATIVE (Negative) RSV RNA Qual (PCR) POSITIVE A (Negative) SARS-CoV-2 RNA (RT-PCR) NEGATIVE (Negative) Independent Interpretation I performed an independent interpretation of an: Plain X-Ray Radiology Impression Discussion of test interpretation with radiology: I have reviewed the radiologist's reading. Radiologist Impression: FINDINGS: No significant abnormality is noted involving the heart, lungs, mediastinum, bony thorax or soft tissues. XR/XR chest 1V IMPRESSION: Unremarkable chest examination. Critical Care Time Critical Care Time Critical Care Time: Yes Total Critical Care Time: 60 Attestation: I have personally provided critical care time. Time includes review of lab data, radiology results, discussion with consultants, and monitoring for potential decompensation. Intervention performed as documented. Discharge Plan Discharge Clinical Impression: RSV bronchitis Patient Disposition: Home, Self-Care Instructions: Respiratory Syncytial Virus (ED), Acute Bronchitis (ED) Additional Instructions: Please follow-up with your primary care physician tomorrow. If you have any worsening or new symptoms, please return to the emergency room or call 911 Prescriptions: New albuterol sulfate 90 mcg/actuation HFA aerosol inhaler 2 puff inhalation Q4-6H PRN (Reason: shortness of breath or wheezing) Qty: 8.5 0RF prednisone 50 mg tablet 50 mg PO DAILY Qty: 4 0RF No Action albuterol sulfate 90 mcg/actuation HFA aerosol inhaler 2 puff inhalation Q4-6H PRN (Reason: Shortness Of Breath) metoprolol succinate 100 mg tablet extended release 24 hr 100 mg PO DAILY ezetimibe 10 mg tablet 10 mg PO DAILY Qty: 30 11RF omeprazole 40 mg capsule,delayed release(DR/EC) 40 mg PO DAILY Qty: 30 0RF Rx Instructions: Obtain refills from GI or PCP Entresto 49-51 mg tablet 1 tab PO BID 90 Days Qty: 180 3RF (DME) BD Insulin Syringe U-500 1/2 mL 31 gauge x 15/64 syringe See Rx Instructions .ROUTE .MEDSUPPLY Qty: 180 3RF Rx Instructions: Twice a day torsemide 60 mg tablet 60 mg PO BID 90 Days Qty: 180 2RF (DME) FreeStyle Home 2 Sensor Kit See Rx Instructions .ROUTE .COMPLEX Qty: 2 4RF Dose Instruction: DIRECTED EVERY 2 WEEKS Rx Instructions: DIRECTED EVERY 2 WEEKS Jardiance 10 mg tablet 10 mg PO DAILY Qty: 30 4RF fluticasone propionate 50 mcg/actuation spray,suspension 1 spray intranasal BID Qty: 16 2RF Humulin R U-500 (Conc) Insulin 500 unit/mL solution See Rx Instructions subcut .COMPLEX Qty: 20 4RF Rx Instructions: 135 units before breakfast and 40 units before dinner subcutaneously; Xolair 150 mg/mL syringe 300 mg subcut Q2W 28 Days Qty: 4 12RF Xolair 75 mg/0.5 mL syringe 75 mg subcut Q2W 28 Days Qty: 1 12RF Trulicity 3 mg/0.5 mL pen injector 3 mg subcut QWEEK Qty: 2 2RF Xarelto 20 mg tablet 20 mg PO QPM Qty: 30 5RF (DME) FreeStyle Home 2 [place] Misc See Rx Instructions .ROUTE .MEDSUPPLY Qty: 1 0RF Rx Instructions: As directed sennosides [Natural Senna Laxative] 8.6 mg tablet 8.6 mg PO BEDTIME Qty: 90 3RF naproxen [Naprosyn] 500 mg tablet 500 mg PO Q12H PRN (Reason: pain) 30 Days Qty: 60 0RF gabapentin 300 mg capsule 300 mg PO TID atorvastatin 40 mg tablet 40 mg PO DAILY
[2023-03-03] MEDS: Gabapentin 600 MG TABLET PO (15:53)
[2023-03-03 16:30] LABS: B Type Natriuretic Peptide 72 pg/mL (<100)
[2023-03-03 16:31] LABS: Influenza A PCR NEGATIVE (Negative); Influenza B PCR NEGATIVE (Negative); Resp Syncy Virus RNA Qual PCR POSITIVE (Negative); SARS COV2 PCR INHOUSE NEGATIVE (Negative)
[2023-03-03 16:45] VITALS: BP 117/56; PULSE 90; RESP 19; O2SAT 95
[2023-03-03] MEDS: methylPREDNISolone Sod Succ 125 MG/2 ML VIAL IVPUSH (17:58)
== END 2023-03-03 18:06 | disposition home or self-care (01) ==
PROVIDERS: Emergency Provider Emergency Medicine; PCP Internal Medicine
DX: J20.5 Acute bronchitis due to respiratory syncytial virus (principal); R06.02 Shortness of breath; R94.31 Abnormal electrocardiogram [ECG] [EKG]; R07.89 Other chest pain; Z20.822 Contact with and (suspected) exposure to COVID-19; Z20.828 Contact with and (suspected) exposure to other viral communicable diseases; Z79.899 Other long term (current) drug therapy
CPT/HCPCS: 0241U; 36415; 71045; 80048; 83880; 84484; 85025; 93005; 94640; 96374; 99284; 99285; J2930

== ENCOUNTER → 2023-03-03 14:05 | Outpatient (BNV) | payer OTHER, SELFPAY | PROVIDERS: Emergency Provider Emergency Medicine; PCP Internal Medicine; Visit Provider Internal Medicine | DX: I49.8 Other specified cardiac arrhythmias (principal) | CPT/HCPCS: 93010 ==

== ENCOUNTER 2023-03-10 12:00 | Outpatient (REF) | payer OTHER, SELFPAY | END 2023-03-10 12:01 | disposition home or self-care (01) | LOC: HO.MDS 12:00 | PROVIDERS: Visit Provider Internal Medicine Pulmonary Disease | DX: J45.50 Severe persistent asthma, uncomplicated (principal) | CPT/HCPCS: 96372; J2357 ==

== ENCOUNTER 2023-03-23 11:40 | Outpatient (REF) | payer OTHER, SELFPAY | END 2023-03-23 11:41 | disposition home or self-care (01) | LOC: HO.MDS 11:40 | PROVIDERS: Visit Provider Internal Medicine Pulmonary Disease | DX: J45.50 Severe persistent asthma, uncomplicated (principal) | CPT/HCPCS: 96372 ==

== ENCOUNTER 2023-03-25 13:42 | Outpatient (AMB) | payer OTHER, SELFPAY ==
--- NOTE | 2023-03-25 13:44 | MHC.OFFVIS ---
Intake Vital Signs 03/25/23 13:46 Height 5 ft 11 in Weight 325 lb 9.457 oz BMI 45.4 BP 98/62 Blood Pressure Location Rt brachial Position Sitting Pulse 100 Pulse Source Doppler Pulse Oximetry (%) 94 Oxygen Delivery Method Room Air Intake Visit Reasons: asthma Medical Authorization Specialist Required: Yes Medical Authorization Specialist Name: Sugar Duane Gaviria Allergies lisinopril Adverse Reaction (Intermediate, Verified 03/25/23 13:50) cough HPI asthma HPI Details 63-year-old gentleman with underlying history significant for systolic heart failure with EF of 10-15% on diuretic therapy prior history of cocaine abuse followed for allergic asthma and JANELL.? Patient continues on Xolair and albuterol MDI with excellent control of his asthma symptoms.? He denies recent asthma exacerbations. He has been using CPAP with good control of his underlying sleep apnea symptoms. His lower extremity edema and heart failure symptoms not as well controlled after his metolazone was discontinued. He does follow-up with Nephrology. 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) Alcohol intake: former Patient Tobacco Use Status: Former Tobacco user Quit Date: 2002 Tobacco use type: Cigarette Years Smoked: 40 Substance Use Type: Crack/Cocaine, Former Substance User, Heroin, Marijuana and Prescription Drugs Advance Directives Date on File: 07/05/20 service: No Current occupational status: unemployed Review of Systems Const Denies daytime sleepiness, Denies excessive sweating, Denies fatigue, Denies fever(s), Denies lethargy, Denies malaise, Denies night sweats, Denies snoring and Denies weight loss Eyes Denies blurry vision and Denies itchy eyes ENT Denies nasal congestion, Denies post nasal drip, Denies sinus pain, Denies sinus pressure and Denies other ( Thrush) Card Denies chest pain, Reports pedal edema, Denies dyspnea, Reports orthopnea and Denies paroxysmal nocturnal dyspnea Resp Denies cough, Denies hemoptysis, Denies excessive phlegm production, Denies dyspnea, Denies snoring and Denies wheezing GI Denies abdominal pain and Denies heartburn Musc Denies myalgias, Denies arthralgias and Denies joint swelling Skin/Breast Denies rash Neuro Denies memory loss and Denies seizure-like activity Psych Denies abnormal sleep pattern, Denies anxiety and Denies memory loss Endo Denies excessive sweating, Denies fatigue and Denies heat intolerance Wander/Lymph Denies easy bruising Aller/Immun Denies itchy eyes, Denies seasonal rhinorrhea and Denies wheezing Physical Exam Vital Signs: Last Vital Signs Pulse 100 03/25/23 13:46 BP 98/62 03/25/23 13:46 Pulse Ox 94 03/25/23 13:46 Oxygen Delivery Method Room Air 03/25/23 13:46 BMI result Body Mass Index 45.4 Const General: no acute distress and alert Nutritional Appearance: not obese Orientation/consciousness: Other orientation findings ( oriented) HEENT Head: Yes atraumatic Eyes General: appearance normal, both eyes and all related structures Sclerae: sclerae normal EOM: EOMs intact bilaterally Neck Neck: Yes supple Lymphatic: no lymphadenopathy noted Resp Effort & Inspection: normal respiratory effort and no use of accessory muscles Auscultation: clear to auscultation bilaterally Cardio Rate: regular rate Rhythm: regular rhythm Heart sounds: no gallops, no murmurs and no rubs Skin General skin exam: other ( warm) Extrem General: No clubbing, No cyanosis and Yes edema (2+ bilateral) Assessment & Plan Assessment & Plan (1) Orthopnea: Code(s): R06.01 - Orthopnea Plan: With worsening control after discontinuation of metolazone. Patient does follow-up with Nephrology. Currently on torsemide 60 b.i.d.. Will discuss with PCP/nephrology regarding adjustment of his diuretic regimen. (2) JANELL on CPAP: Code(s): G47.33 - Obstructive sleep apnea (adult) (pediatric); Z99.89 - Dependence on other enabling machines and devices Plan: Well controlled on current CPAP therapy. Continue current regimen. (3) Allergic asthma: Code(s): J45.909 - Unspecified asthma, uncomplicated Plan: Well controlled on Xolair and albuterol MDI/nebs. Continue current regimen. (4) Environmental allergies: Code(s): Z91.09 - Other allergy status, other than to drugs and biological substances Plan: Well controlled on Xolair. Continue current regimen. Coding Level of Care Code Est Pt Level 5 (17988) Diagnoses Orthopnea R06.01 JANELL on CPAP G47.33; Z99.89 Allergic asthma J45.909 Environmental allergies Z91.09
[2023-03-25 13:46] VITALS: BP 98/62; PULSE 100; O2SAT 94; BMI 45.4
== END 2023-03-25 14:16 | disposition home or self-care (01) ==
PROVIDERS: PCP Internal Medicine; Visit Provider Internal Medicine Pulmonary Disease
DX: R06.01 Orthopnea (principal); G47.33 Obstructive sleep apnea (adult) (pediatric); Z99.89 Dependence on other enabling machines and devices; J45.909 Unspecified asthma, uncomplicated; Z91.09 Other allergy status, other than to drugs and biological substances
CPT/HCPCS: 99214

== ENCOUNTER → 2023-03-25 13:42 | Outpatient (BNVA) | payer OTHER, SELFPAY | PROVIDERS: PCP Internal Medicine; Visit Provider Internal Medicine Pulmonary Disease | DX: J45.909 Unspecified asthma, uncomplicated (principal); R06.01 Orthopnea; G47.33 Obstructive sleep apnea (adult) (pediatric); Z91.09 Other allergy status, other than to drugs and biological substances; Z79.899 Other long term (current) drug therapy; Z99.89 Dependence on other enabling machines and devices | CPT/HCPCS: 99212 ==

== ENCOUNTER 2023-03-26 10:28 | Outpatient (AMB) | payer OTHER, SELFPAY ==
[2023-03-26 10:30] VITALS: BP 102/58; PULSE 100; BMI 45.5
--- NOTE | 2023-03-26 10:30 | MHC.OFFVIS ---
Intake Vital Signs 03/26/23 10:30 Height 5 ft 11 in Weight 326 lb 4.546 oz BMI 45.5 BP 102/58 L Blood Pressure Location Lt brachial Position Sitting Pulse 100 Pulse Source Pulse Oximeter Intake Visit Reasons: DM-confirmed Intake Note: Patient presents today to follow up on D2MT. Last Diabetic Eye exam: 08/2022 Last Podiatry Visit: Has upcoming appt. Random Glucose: 353 mg/dl HgA1C: 9.9% Sanding Machine Tender Automatic Required: Yes Sanding Machine Tender Automatic Language: Director Surgical Name: [facility] medical staff Information Interpreted: non-clinical & clinical Accompanied by: Self / Same As Patient Allergies lisinopril Adverse Reaction (Intermediate, Verified 03/26/23 10:39) cough HPI HPI Comments History of Present Illness Details Patient is 62 year old male with DM type 2 diagnosed who presents for continued management of diabetes. Past medical history: DM2, CHF, cardiomyopathy, heroin abuse, hepatitis C, hypertension, hyperlipidemia, sleep apnea on BiPAP, defibrillator Micro and macrovascular complications: nephropathy and neuropathy, PAD Diabetes medications: ?Humulin U 500 120 units 30 minutes before breakfast and to use 40 units 30 minutes before dinner. Actually Using 50-60 .. In actuality, patient is taking the 2nd dose of U- 500 insulin before bedtime?Trulicity 3mg/week.Jardiance 10 mg QD He is starting a Tandem pump with control IQ this wk . Continuous glucose monitoring: In the past 14 days C GM is active 94% with an average blood glucose of 223. Glucose management indicator 8.6%. Glucose variability 39.2%. Patient's blood glucose was within target range of 70-180 37% of the time. He has 1% glucose below target range. The rest is above target range. pattern shows post -breakfast and post-lunch elevation Hypoglycemia: experiencing hypoglycemia overnight 2-3 AM Exercise: limited Naprapath - CDE education: no Ophthalmology evaluation: saw optho 6 mos ago Other specialists: pumping station engineer, Laboratory Tests 05/20/21 05/20/21 05/20/21 11:50 11:51 11:51 Creatinine 1.26 Estimated GFR 58 Triglycerides 163 Cholesterol 136 LDL Cholesterol Di rect 82 LDL Cholesterol, C alc 74 HDL Cholesterol 30 25-OH Vitamin D To paloma 19.3 Microalb/Creat Rat io 42.4 PFSH Medical History Tubular adenoma Vitamin D deficiency Hypoxia Paroxysmal atrial fibrillation Biventricular ICD (implantable cardioverter-defibrillator) in place Chest pain Congestive heart failure (CHF) Dyslipidemia Morbid obesity Diabetic neuropathy associated with type 2 diabetes mellitus 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 Social History Household Members: Friend(s) and Other Household Members Other:: sober living home Housing: House Housing Other:: sober house-rents room Are you a primary adult day care worker to a significant other at home: No Do you presently have visiting nurse or other home services: Yes (APPOINTMENT SPECIALIST 3x week) Alcohol intake: former Patient Tobacco Use Status: Former Tobacco user Quit Date: 2002 Tobacco use type: Cigarette Years Smoked: 40 Substance Use Type: Crack/Cocaine, Former Substance User, Heroin, Marijuana and Prescription Drugs Advance Directives Date on File: 07/05/20 service: No Current occupational status: unemployed Physical Exam Vital Signs: Last Vital Signs Pulse 100 03/26/23 10:30 BP 102/58 L 03/26/23 10:30 BMI result Body Mass Index 45.5 Absence of Cushingoid features. Absence of acromegalic features. Neck exam reveals nl size thyroid about 15 gms. No thyroid nodules palpable. No carotid bruits present. Lungs CTA. Heart S1 S2, Reg R/R. No M/R/ G. Skin exam reveals absence of vitiligo or acanthosis nigricans. Abdominal exam reveals Soft NT/ND with NA BS. No organomegaly present. Neck Other: . Extrem Other: Visual exam of foot performed. No ulcerations or open lesions. No onchomycosis, no callouses.Pulses 2 + distally Sensation decreasedto monofilament exam. Vibratory sensation sensed is decreased with 128 Hz tuning fork Results Reviewed Results Reviewed: Laboratory Last Values Glucose (Clinic) 353 mg/dL (60-115) H* 03/26/23 10:44 Assessment & Plan Assessment & Plan (1) Diabetes type 2, uncontrolled: Code(s): E11.65 - Type 2 diabetes mellitus with hyperglycemia Qualifiers: Glycemic state: with hyperglycemia Qualified Code(s): E11.65 - Type 2 diabetes mellitus with hyperglycemia Plan: This 62-year-old female with history of type 2 diabetes and insulin resistance being treated with U-500 insulin and Trulicity , Jardiance with poor glycemic control and known microvascular and macrovascular complications namely Nephropathy neuropathy, CAD status post stent. Plan is to to proceed to reinitiate the tandem T slim X 2 pump with control IQ. He is awaiting the return to the chemical educator to reinitiate the pump which will happen next week. I will have him lower his U 500 insulin at dinner to 40 units . We will also check a lipid profile Orders: Orders Lipid Panel Today E11.65 - Type 2 diabetes mellitus with hyperglycemia Coding Level of Care Code Est Pt Level 4 (36015) Diagnoses Diabetes type 2, uncontrolled E11.65 Glycemic state: with hyperglycemia
[2023-03-26 10:50] LABS: Glucose, Whole Blood 353 mg/dL (60-115)
== END 2023-03-26 11:08 | disposition home or self-care (01) ==
PROVIDERS: PCP Internal Medicine; Visit Provider Internal Medicine Endocrinology, Diabetes & Metabolism
DX: E11.65 Type 2 diabetes mellitus with hyperglycemia (principal)
CPT/HCPCS: 99214

== ENCOUNTER → 2023-03-26 10:28 | Outpatient (BNVA) | payer OTHER, SELFPAY | PROVIDERS: PCP Internal Medicine; Visit Provider Internal Medicine Endocrinology, Diabetes & Metabolism | DX: E11.65 Type 2 diabetes mellitus with hyperglycemia (principal) | CPT/HCPCS: 82947; 83036; 99212 ==

== ENCOUNTER → 2023-03-30 23:59 | Outpatient (BNV) | payer OTHER, SELFPAY ==
--- NOTE | 2023-04-06 13:56 | A.OFFVIS_ITS ---
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 Social History Household Members: Friend(s) and Other Household Members Other:: sober living home Housing: House Housing Other:: sober house-rents room Are you a primary wound care nurse to a significant other at home: No Do you presently have visiting nurse or other home services: Yes (MANAGER BAR 3x week) Alcohol intake: former Patient Tobacco Use Status: Former Tobacco user Quit Date: 2002 Tobacco use type: Cigarette Years Smoked: 40 Substance Use Type: Crack/Cocaine, Former Substance User, Heroin, Marijuana and Prescription Drugs Advance Directives Date on File: 07/05/20 service: No Current occupational status: unemployed Office Procedures Cardiac Device Check Cardiac Device Check Details: 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 V-paced 99%. No new alerts. [id number] Cardiac Device Interrogation, pacemaker or defibrillator Procedure code (CPT) selection complete Assessment & Plan Assessment & Plan (1) Biventricular ICD (implantable cardioverter-defibrillator) in place: Comment: Medtronic, implanted 06/28/20 Code(s): Z95.810 - Presence of automatic (implantable) cardiac defibrillator Plan: Orders: Orders AMB Cardiac Device Follow-up 03/30/23 Z95.810 - Presence of automatic (implantable) cardiac defibrillator Coding Level of Care Code Procedure Only Diagnoses Biventricular ICD (implantable cardioverter-defibrillator) in place Z95.810 CPT Codes Cardiac Device Check - Cardiac Device 14: [id number] Cardiac Device Interrogation, pacemaker or defibrillator ([id number])
== END ==
PROVIDERS: PCP Internal Medicine; Visit Provider Internal Medicine Cardiovascular Disease
DX: I42.8 Other cardiomyopathies (principal); Z95.810 Presence of automatic (implantable) cardiac defibrillator
CPT/HCPCS: 93295

== ENCOUNTER → 2023-03-30 23:59 | Outpatient (BNV) | payer OTHER, SELFPAY ==
--- NOTE | 2023-04-06 13:59 | MHC.OFFVIS ---
Intake Intake Visit Reasons: Remote HF Monitoring- Medtronic Allergies lisinopril Adverse Reaction (Intermediate, Verified 03/26/23 10:39) cough PFSH Medical History Tubular adenoma Vitamin D deficiency Hypoxia Paroxysmal atrial fibrillation Biventricular ICD (implantable cardioverter-defibrillator) in place Chest pain Congestive heart failure (CHF) Dyslipidemia Morbid obesity Diabetic neuropathy associated with type 2 diabetes mellitus senior living (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 Social History Household Members: Friend(s) and Other Household Members Other:: sober living home Housing: House Housing Other:: sober house-rents room Are you a primary primary care provider to a significant other at home: No Do you presently have visiting nurse or other home services: Yes (DOG RACES MANAGER 3x week) Alcohol intake: former Patient Tobacco Use Status: Former Tobacco user Quit Date: 2002 Tobacco use type: Cigarette Years Smoked: 40 Substance Use Type: Crack/Cocaine, Former Substance User, Heroin, Marijuana and Prescription Drugs Advance Directives Date on File: 07/05/20 service: No Current occupational status: unemployed Office Procedures Cardiac Device Check Cardiac Device Check Details: HF monitoring Stable thoracic impedance. [id number] Cardiac Device Interrogation, cardio physiologic monitor Procedure code (CPT) selection complete Assessment & Plan Assessment & Plan (1) Biventricular ICD (implantable cardioverter-defibrillator) in place: Comment: Medtronic, implanted 06/28/20 Code(s): Z95.810 - Presence of automatic (implantable) cardiac defibrillator Plan: Orders: Orders AMB Cardiac Device Follow-up 03/30/23 Z95.810 - Presence of automatic (implantable) cardiac defibrillator Coding Level of Care Code Procedure Only Diagnoses Biventricular ICD (implantable cardioverter-defibrillator) in place Z95.810 CPT Codes Cardiac Device Check - Cardiac Device 15: [id number] Cardiac Device Interrogation, cardio physiologic monitor ([id number])
== END ==
PROVIDERS: PCP Internal Medicine; Visit Provider Internal Medicine Cardiovascular Disease
DX: I50.23 Acute on chronic systolic (congestive) heart failure (principal); Z95.810 Presence of automatic (implantable) cardiac defibrillator
CPT/HCPCS: 93297

== ENCOUNTER 2023-04-02 12:23 | Outpatient (AMB) | payer OTHER, SELFPAY ==
[2023-04-02 12:55] VITALS: BP 128/78
--- NOTE | 2023-04-02 12:55 | A.OFFVIS_ITS ---
Intake Vital Signs 04/02/23 12:55 BP 128/78 Blood Pressure Location Rt brachial Position Sitting Intake Visit Reasons: DM/CONFIRMED Allergies lisinopril Adverse Reaction (Intermediate, Verified 03/26/23 10:39) cough HPI Comprehensive Diabetes Asmnt Most Recent Diabetes Results: Creatinine 1.20 mg/dL (0.5-1.4) 03/03/23 Blood Urea Nitrogen 26 mg/dL (9-16) H 03/03/23 Sodium 143 mmol/L (135-145) 03/03/23 Potassium 4.0 mmol/L (3.3-5.1) 03/03/23 Chloride 103 mmol/L (96-108) 03/03/23 Carbon Dioxide 31 mmol/L (22-29) H 03/03/23 Calcium 9.0 mg/dL (8.4-10.2) 03/03/23 COUNT INCLUDES THE [facility] Medical History Tubular adenoma Vitamin D deficiency Hypoxia Paroxysmal atrial fibrillation Biventricular ICD (implantable cardioverter-defibrillator) in place Chest pain Congestive heart failure (CHF) Dyslipidemia Morbid obesity Diabetic neuropathy associated with type 2 diabetes mellitus 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 Social History Household Members: Friend(s) and Other Household Members Other:: sober living home Housing: House Housing Other:: sober house-rents room Are you a primary skin care therapist to a significant other at home: No Do you presently have visiting nurse or other home services: Yes (PIZZA DRIVER 3x week) Alcohol intake: former Patient Tobacco Use Status: Former Tobacco user Quit Date: 2002 Tobacco use type: Cigarette Years Smoked: 40 Substance Use Type: Crack/Cocaine, Former Substance User, Heroin, Marijuana and Prescription Drugs Advance Directives Date on File: 07/05/20 service: No Current occupational status: unemployed Assessment & Plan Assessment & Plan (1) Diabetic nephropathy associated with type 2 diabetes mellitus: Code(s): E11.21 - Type 2 diabetes mellitus with diabetic nephropathy Plan: Patient presents for pump training for T-Slim pump and Dexcom G6. The following topics were reviewed today: -Pump therapy basic concepts: Basal/bolus, insulin to carb ratio, correction factor, insulin on board At today's visit we reinitiated insulin pump therapy. Patient given new Dexcom G6 transmitter, patient instructed on how to enter transmitter number and sensor code into T slim insulin pump Patient instructed to charge pump fully when he returns home Then try and charge 15-20 minutes daily Patient has been taking U 500 125 units a.m., 40 units p.m. since stopping pump therapy Reviewed with patient how to treat hypoglycemia with rule of 15s Setting verified by CDCES Basal rate(s) (units/hour) : 12 AM to 12 AM? 1 units / hr Bolus setting Insulin Carbohydrate Ratio (s) 12 AM? to 12 AM 1:30 Correction Factor / Sensitivity Factor 12 AM? to 12 AM 1:100 Active Insulin Time:? 5 hours Target(s): 12 AM? to 12 AM? 110-110 Patient Instructions: At next visit we will set up patient is insulin pump to connect to T Crittercism sugar on his phone Coding Level of Care Code Est Pt Level 1 (93581) Diagnoses Diabetic nephropathy associated with type 2 diabetes mellitus E11.21
== END 2023-04-02 14:03 | disposition home or self-care (01) ==
PROVIDERS: PCP Internal Medicine; Visit Provider Registered Nurse Diabetes Educator
DX: E11.21 Type 2 diabetes mellitus with diabetic nephropathy (principal)

== ENCOUNTER → 2023-04-02 12:23 | Outpatient (BNVA) | payer OTHER, SELFPAY | PROVIDERS: PCP Internal Medicine; Visit Provider Registered Nurse Diabetes Educator | DX: E11.21 Type 2 diabetes mellitus with diabetic nephropathy (principal); Z96.41 Presence of insulin pump (external) (internal) | CPT/HCPCS: 99211 ==

== ENCOUNTER 2023-04-06 11:42 | Outpatient (REF) | payer OTHER, SELFPAY | END 2023-04-06 11:43 | disposition home or self-care (01) | LOC: HO.MDS 11:42 | PROVIDERS: Visit Provider Internal Medicine Pulmonary Disease | DX: J45.50 Severe persistent asthma, uncomplicated (principal) | CPT/HCPCS: 96372 ==

== ENCOUNTER 2023-04-09 12:08 | Outpatient (AMB) | payer OTHER, SELFPAY ==
--- NOTE | 2023-04-09 13:09 | A.OFFVIS_ITS ---
Intake Intake Visit Reasons: DM/CONFIRMED Allergies lisinopril Adverse Reaction (Intermediate, Verified 03/26/23 10:39) cough HPI Comprehensive Diabetes Asmnt Most Recent Diabetes Results: Creatinine 1.20 mg/dL (0.5-1.4) 03/03/23 Blood Urea Nitrogen 26 mg/dL (9-16) H 03/03/23 Sodium 143 mmol/L (135-145) 03/03/23 Potassium 4.0 mmol/L (3.3-5.1) 03/03/23 Chloride 103 mmol/L (96-108) 03/03/23 Carbon Dioxide 31 mmol/L (22-29) H 03/03/23 Calcium 9.0 mg/dL (8.4-10.2) 03/03/23 [facility] Medical History Tubular adenoma Vitamin D deficiency Hypoxia Paroxysmal atrial fibrillation Biventricular ICD (implantable cardioverter-defibrillator) in place Chest pain Congestive heart failure (CHF) Dyslipidemia Morbid obesity Diabetic neuropathy associated with type 2 diabetes mellitus 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 Social History Household Members: Friend(s) and Other Household Members Other:: sober living home Housing: House Housing Other:: sober house-rents room Are you a primary child caregiver to a significant other at home: No Do you presently have visiting nurse or other home services: Yes (SPECIAL NEEDS TUTOR 3x week) Alcohol intake: former Patient Tobacco Use Status: Former Tobacco user Quit Date: 2002 Tobacco use type: Cigarette Years Smoked: 40 Substance Use Type: Crack/Cocaine, Former Substance User, Heroin, Marijuana and Prescription Drugs Advance Directives Date on File: 07/05/20 service: No Current occupational status: unemployed Assessment & Plan Assessment & Plan (1) Diabetic nephropathy associated with type 2 diabetes mellitus: Code(s): E11.21 - Type 2 diabetes mellitus with diabetic nephropathy Plan: Patient presents for pump training for T-Slim pump and Dexcom G6. The following topics were reviewed today: -T-Connect sugar on smart phone Tandem Login info: User name: [email or web address] [email or web address] Patient's average glucose for the past 7 days 243 mg/dL Patient above target 66% Patient at target 33% Patient below target 0% Patient reports when glucose has been very high and he is unable to get correction through pump he has been injecting U 500 20 units Patient also has entered phantom carbs to get correction insulin Explained to patient it is difficult to assess how settings need to be adjusted if he is taking more insulin than the pump is keeping track of, also adding phantom carbs makes it more difficult to assess insulin to carb ratio Troubleshooting after starting new pod or inserting new insulin set: Occlusion, adhesive tape sensitivity, redness Check BG 2 hours after site change Safety information: Patient was able to insert insulin set today without difficulty. Patient understands the basic concepts of pump therapy, how to give insulin for meals and snacks, how to troubleshoot for hyper and hypoglycemia. Setting verified by CDCES, see changes to settings below: Basal rate(s) (units/hour) : 12 AM to 12 AM? 1 units / hr Bolus setting Insulin Carbohydrate Ratio (s) 12 AM? to 12 AM 1:30 New 12 AM? to 12 AM 1:28 Correction Factor / Sensitivity Factor 12 AM? to 12 AM 1:100 New 12 AM? to 12 AM 1:75 Active Insulin Time:? 5 hours Target(s): 12 AM? to 12 AM? 110-110 Patient Instructions: Patient will follow-up with zinc miner blasting in 1 month Coding Level of Care Code Est Pt Level 1 (59696) Diagnoses Diabetic nephropathy associated with type 2 diabetes mellitus E11.21
== END 2023-04-09 13:22 | disposition home or self-care (01) ==
PROVIDERS: PCP Internal Medicine; Visit Provider Registered Nurse Diabetes Educator
DX: E11.21 Type 2 diabetes mellitus with diabetic nephropathy (principal)

== ENCOUNTER → 2023-04-09 12:08 | Outpatient (BNVA) | payer OTHER, SELFPAY | PROVIDERS: PCP Internal Medicine; Visit Provider Registered Nurse Diabetes Educator | DX: Z46.81 Encounter for fitting and adjustment of insulin pump (principal); E11.21 Type 2 diabetes mellitus with diabetic nephropathy | CPT/HCPCS: 99211 ==

== ENCOUNTER 2023-04-20 12:30 | Outpatient (REF) | payer OTHER, SELFPAY | END 2023-04-20 12:31 | disposition home or self-care (01) | LOC: HO.MDS 12:30 | PROVIDERS: Visit Provider Internal Medicine Pulmonary Disease | DX: J45.50 Severe persistent asthma, uncomplicated (principal) | CPT/HCPCS: 96372 ==

== ENCOUNTER → 2023-04-30 23:59 | Outpatient (BNV) | payer MEDICARE, MEDICAID, SELFPAY ==
--- NOTE | 2023-05-20 11:55 | A.OFFVIS_ITS ---
Intake Intake Visit Reasons: Remote HF Monitoring- Medtronic Allergies lisinopril Adverse Reaction (Intermediate, Verified 03/26/23 10:39) cough PFSH Medical History Tubular adenoma Vitamin D deficiency Hypoxia Paroxysmal atrial fibrillation Biventricular ICD (implantable cardioverter-defibrillator) in place Chest pain Congestive heart failure (CHF) Dyslipidemia Morbid obesity Diabetic neuropathy associated with type 2 diabetes mellitus 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 Social History Household Members: Friend(s) and Other Household Members Other:: sober living home Housing: House Housing Other:: sober house-rents room Are you a primary day care center director to a significant other at home: No Do you presently have visiting nurse or other home services: Yes (PRINCIPAL SYSTEMS ARCHITECT 3x week) Alcohol intake: former Patient Tobacco Use Status: Former Tobacco user Quit Date: 2002 Tobacco use type: Cigarette Years Smoked: 40 Substance Use Type: Crack/Cocaine, Former Substance User, Heroin, Marijuana and Prescription Drugs Advance Directives Date on File: 07/05/20 service: No Current occupational status: unemployed Office Procedures Cardiac Device Check Cardiac Device Check Details: Medtronic NAIL PROFESSIONAL D. Heart failure monitoring. V pacing 99.9%. Possible fluid accumulation from 04/26/2023 onward. The patient was called by the nurse practitioner and denied any change in symptomatology. [id number] Cardiac Device Interrogation, cardio physiologic monitor Procedure code (CPT) selection complete Assessment & Plan Assessment & Plan (1) Chronic heart failure: Code(s): I50.9 - Heart failure, unspecified Plan Coding Level of Care Code Procedure Only Diagnoses Chronic heart failure I50.9 CPT Codes Cardiac Device Check - Cardiac Device 15: [id number] Cardiac Device Interrogation, cardio physiologic monitor ([id number])
== END ==
PROVIDERS: PCP Internal Medicine; Visit Provider Internal Medicine Cardiovascular Disease
DX: I50.9 Heart failure, unspecified (principal); Z95.810 Presence of automatic (implantable) cardiac defibrillator
CPT/HCPCS: 93297

== ENCOUNTER 2023-05-04 11:35 | Outpatient (REF) | payer MEDICARE, SELFPAY | END 2023-05-04 11:36 | disposition home or self-care (01) | LOC: HO.MDS 11:35 | PROVIDERS: Visit Provider Internal Medicine Pulmonary Disease | DX: Z13.89 Encounter for screening for other disorder (principal) ==

== ENCOUNTER 2023-05-12 12:59 | Outpatient (AMB) | payer OTHER, SELFPAY ==
--- NOTE | 2023-05-12 13:59 | MHC.AMDMED ---
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: No Accompanied by: Self / Same As Patient Allergies lisinopril Adverse Reaction (Intermediate, Verified 03/26/23 10:39) cough HPI Comprehensive Diabetes Asmnt Most Recent Diabetes Results: Hemoglobin A1c 9.6 % 08/11/19 Microalb/Creat Ratio 93.4 ug/mg cr 10/01/22 Cholesterol 174 mg/dL 06/30/22 HDL Cholesterol 37 mg/dL 06/30/22 Triglycerides 132 mg/dL 06/30/22 Creatinine 1.20 mg/dL (0.5-1.4) 03/03/23 Blood Urea Nitrogen 26 mg/dL (9-16) H 03/03/23 Sodium 143 mmol/L (135-145) 03/03/23 Potassium 4.0 mmol/L (3.3-5.1) 03/03/23 Chloride 103 mmol/L (96-108) 03/03/23 Carbon Dioxide 31 mmol/L (22-29) H 03/03/23 Calcium 9.0 mg/dL (8.4-10.2) 03/03/23 AST 19 U/L (5-37) 10/01/22 ALT 17 U/L (0-40) 10/01/22 Total Protein 8.1 g/dL (6.5-8.0) H 10/01/22 Albumin 3.8 g/dL (3.5-5.0) 10/01/22 [facility] Medical History Tubular adenoma Vitamin D deficiency Hypoxia Paroxysmal atrial fibrillation Biventricular ICD (implantable cardioverter-defibrillator) in place Chest pain Congestive heart failure (CHF) Dyslipidemia Morbid obesity Diabetic neuropathy associated with type 2 diabetes mellitus senior living (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 Social History Household Members: Friend(s) and Other Household Members Other:: sober living home Housing: House Housing Other:: sober house-rents room Are you a primary skin care consultant to a significant other at home: No Do you presently have visiting nurse or other home services: Yes (CONFIDENTIAL INVESTIGATOR 3x week) Alcohol intake: former Patient Tobacco Use Status: Former Tobacco user Quit Date: 2002 Tobacco use type: Cigarette Years Smoked: 40 Substance Use Type: Crack/Cocaine, Former Substance User, Heroin, Marijuana and Prescription Drugs Advance Directives Date on File: 07/05/20 service: No Current occupational status: unemployed Assessment & Plan Assessment & Plan (1) Diabetic nephropathy associated with type 2 diabetes mellitus: Code(s): E11.21 - Type 2 diabetes mellitus with diabetic nephropathy Plan: Patient presents for pump training for T-Slim pump and Dexcom G6. The following topics were reviewed today: -T-Connect sugar on smart phone Tandem Login info: User name: [email or web address] Password: [email or web address] Patient's average glucose for the past 7 days 295 mg/dL Patient above target 86% Patient at target 14% Patient below target 0% Patient has stopped manually injecting U 500. glucose control is still well above target. Reports he has been trying not to enter phantom carbs as well. See adjustment to patient's insulin pump settings below Patient will follow-up with hematology nurse educator in 2 weeks Patient did have fasting glucose C-peptide drawn. C-peptide may indicate that patient has insulin pump supplies will not be covered. Labs submitted to reliable Diabetes Troubleshooting after starting new pod or inserting new insulin set: Occlusion, adhesive tape sensitivity, redness Check BG 2 hours after site change Safety information: Patient was able to insert insulin set today without difficulty. Patient understands the basic concepts of pump therapy, how to give insulin for meals and snacks, how to troubleshoot for hyper and hypoglycemia. Setting verified by CDCES, see changes to settings below: Basal rate(s) (units/hour) : 12 AM to 12 AM? 1 units / hr New 12 AM to 12 AM? 1.5 units / hr Bolus setting Insulin Carbohydrate Ratio (s) 12 AM? to 12 AM 1:28 New 12 AM? to 12 AM 1:25 Correction Factor / Sensitivity Factor 12 AM? to 12 AM 1:75 New 12 AM? to 12 AM 1:70 Active Insulin Time:? 5 hours Target(s): 12 AM? to 12 AM? 110-110 Patient Instructions: Call [facility] if you get new insurance plan information Follow-up with Diabetes Education nurse in 2 weeks Coding Level of Care Code Est Pt Level 1 (32509) Diagnoses Diabetic nephropathy associated with type 2 diabetes mellitus E11.21
== END 2023-05-12 14:03 | disposition home or self-care (01) ==
PROVIDERS: PCP Internal Medicine; Visit Provider Registered Nurse Diabetes Educator
DX: E11.21 Type 2 diabetes mellitus with diabetic nephropathy (principal)

== ENCOUNTER → 2023-05-12 12:59 | Outpatient (BNVA) | payer OTHER, SELFPAY | PROVIDERS: PCP Internal Medicine; Visit Provider Registered Nurse Diabetes Educator | DX: Z46.81 Encounter for fitting and adjustment of insulin pump (principal); E11.21 Type 2 diabetes mellitus with diabetic nephropathy; Z79.4 Long term (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 of insulin | CPT/HCPCS: 99211 ==

== ENCOUNTER 2023-06-16 14:32 | Outpatient (REF) | payer OTHER, SELFPAY ==
[2023-06-16 16:21] LABS: Anion Gap 13 (12-20); Blood Urea Nitrogen 14 mg/dL (9-16); Calcium 8.5 mg/dL (8.4-10.2); Carbon Dioxide 26 mmol/L (22-29); Chloride 105 mmol/L (96-108); Estimated Glomerular Filt Rate > 60; Glucose Random 191 mg/dL (60-115); Sodium 139 mmol/L (135-145)
[2023-06-16 16:42] LABS: Erythrocyte Sedimentation Rate 25 MM/HR (0-15)
== END 2023-06-16 14:33 | disposition home or self-care (01) ==
LOC: HO.HHCL 14:32
PROVIDERS: Visit Provider Internal Medicine
DX: M10.9 Gout, unspecified (principal); N17.9 Acute kidney failure, unspecified
CPT/HCPCS: 36415; 80048; 85652

== ENCOUNTER 2023-07-01 15:39 | Outpatient (AMB) | payer OTHER, SELFPAY ==
--- NOTE | 2023-07-01 16:21 | A.OFFVIS_ITS ---
Intake Intake Visit Reasons: DM-pump Glue Plant Operator Required: No Accompanied by: Self / Same As Patient Allergies lisinopril Adverse Reaction (Intermediate, Verified 03/26/23 10:39) cough HPI Comprehensive Diabetes Asmnt Most Recent Diabetes Results: Creatinine 0.94 mg/dL (0.5-1.4) 06/16/23 Blood Urea Nitrogen 14 mg/dL (9-16) 06/16/23 Sodium 139 mmol/L (135-145) 06/16/23 Potassium 5.0 mmol/L (3.3-5.1) 06/16/23 Chloride 105 mmol/L (96-108) 06/16/23 Carbon Dioxide 26 mmol/L (22-29) 06/16/23 Calcium 8.5 mg/dL (8.4-10.2) 06/16/23 [facility] Medical History Tubular adenoma Vitamin D deficiency Hypoxia Paroxysmal atrial fibrillation Biventricular ICD (implantable cardioverter-defibrillator) in place Chest pain Congestive heart failure (CHF) Dyslipidemia Morbid obesity Diabetic neuropathy associated with type 2 diabetes mellitus 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 Social History Household Members: Friend(s) and Other Household Members Other:: sober living home Housing: House Housing Other:: sober house-rents room Are you a primary healthcare management consultant to a significant other at home: No Do you presently have visiting nurse or other home services: Yes (PHYSICS TECHNICAL OFFICER 3x week) Alcohol intake: former Patient Tobacco Use Status: Former Tobacco user Quit Date: 2002 Tobacco use type: Cigarette Years Smoked: 40 Substance Use Type: Crack/Cocaine, Former Substance User, Heroin, Marijuana and Prescription Drugs Advance Directives Date on File: 07/05/20 service: No Current occupational status: unemployed Assessment & Plan Assessment & Plan (1) Diabetic nephropathy associated with type 2 diabetes mellitus: Code(s): E11.21 - Type 2 diabetes mellitus with diabetic nephropathy Plan: Patient presents for pump training for T-Slim pump and Dexcom G6. The following topics were reviewed today: -T-Connect sugar on smart phone Tandem Login info: User name: [email or web address] Password: [email or web address] Patient's average glucose for the past 14 days 263 mg/dL Patient above target 72% Patient at target 27% Patient below target 1% Patient reports he is having some overnight low blood sugar, he is also started on Ozempic prescribed by his PCP. Explained to patient if Ozempic dose increase s we may have to make another adjustment to insulin pump See adjustment to patient's insulin pump settings below Patient will follow-up with extension educator in 6 weeks Patient did have fasting glucose C-peptide drawn. C-peptide may indicate that patient has insulin pump supplies will not be covered. Labs submitted to reliable Diabetes Troubleshooting after starting new pod or inserting new insulin set: Occlusion, adhesive tape sensitivity, redness Check BG 2 hours after site change Safety information: Patient was able to insert insulin set today without difficulty. Patient understands the basic concepts of pump therapy, how to give insulin for meals and snacks, how to troubleshoot for hyper and hypoglycemia. Setting verified by CDCES, see changes to settings below: Basal rate(s) (units/hour) : 12 AM to 7 AM? 1 units / hr New 7 AM to 12 AM? 1.5 units / hr Bolus setting Insulin Carbohydrate Ratio (s) 12 AM? to 12 AM 1:25 Correction Factor / Sensitivity Factor 12 AM? to 12 AM 1:70 Active Insulin Time:? 5 hours Target(s): 12 AM? to 12 AM? 110-110 Coding Level of Care Code Est Pt Level 1 (21838) Diagnoses Diabetic nephropathy associated with type 2 diabetes mellitus E11.21
== END 2023-07-01 16:28 | disposition home or self-care (01) ==
PROVIDERS: PCP Internal Medicine; Visit Provider Registered Nurse Diabetes Educator
DX: E11.21 Type 2 diabetes mellitus with diabetic nephropathy (principal)

== ENCOUNTER → 2023-07-01 15:39 | Outpatient (BNVA) | payer OTHER, SELFPAY | PROVIDERS: PCP Internal Medicine; Visit Provider Registered Nurse Diabetes Educator | DX: Z46.81 Encounter for fitting and adjustment of insulin pump (principal); E11.21 Type 2 diabetes mellitus with diabetic nephropathy; Z79.4 Long term (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 of insulin | CPT/HCPCS: 99211 ==

== ENCOUNTER → 2023-07-11 23:59 | Outpatient (BNV) | payer OTHER, SELFPAY ==
--- NOTE | 2023-08-25 15:24 | MHC.OFFVIS ---
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 Social History Household Members: Friend(s) and Other Household Members Other:: sober living home Housing: House Housing Other:: sober house-rents room Are you a primary urgent care physician to a significant other at home: No Do you presently have visiting nurse or other home services: Yes (COMMERCIAL FINANCE MANAGER 3x week) Alcohol intake: former Patient Tobacco Use Status: Former Tobacco user Tobacco use type: Cigarette Years Smoked: 40 Substance Use Type: Crack/Cocaine, Former Substance User, Heroin, Marijuana and Prescription Drugs Advance Directives Date on File: 07/05/20 service: No Current occupational status: unemployed Office Procedures Cardiac Device Check Cardiac Device Check Details: Heart failure monitoring. V paced 99.6%. OptiVol recordings have been up and down and traditionally have been quite unreliable in this patient. [id number] Cardiac Device Interrogation, cardio physiologic monitor Procedure code (CPT) selection complete Assessment & Plan Assessment & Plan (1) Nonischemic cardiomyopathy: Code(s): I42.8 - Other cardiomyopathies Category: Medical Plan Coding Level of Care Code Procedure Only Diagnoses Nonischemic cardiomyopathy I42.8 CPT Codes Cardiac Device Check - Cardiac Device 15: [id number] Cardiac Device Interrogation, cardio physiologic monitor ([id number])
== END ==
PROVIDERS: PCP Internal Medicine; Visit Provider Internal Medicine Cardiovascular Disease
DX: I42.8 Other cardiomyopathies (principal); Z95.810 Presence of automatic (implantable) cardiac defibrillator
CPT/HCPCS: 93297

== ENCOUNTER 2023-07-23 09:45 | Outpatient (AMB) | payer OTHER, SELFPAY ==
--- NOTE | 2023-07-23 09:46 | MHC.OFFVIS ---
Vital Signs 07/23/23 09:47 Height 5 ft 11 in Weight 323 lb 10.217 oz BMI 45.1 BP 134/68 Blood Pressure Location Lt brachial Position Sitting Pulse 87 Pulse Source Pulse Oximeter Intake Visit Reasons: [id number]-cirrzayey Intake Note: Patient presents today to follow up on D2MT. Last Diabetic Eye exam: 05/2023 Last Podiatry Visit: Doesn't have one Random Glucose: 362 mg/dl HgA1c: 10.3% Aeronautical Products Sales Engineer Required: Yes Aeronautical Products Sales Engineer Language: Nepali Accompanied by: Self / Same As Patient Allergies lisinopril Adverse Reaction (Intermediate, Verified 07/23/23 09:52) cough Medication List - Last Reconciled 07/23/23 by Yagn Encarnacion MD albuterol sulfate 90 mcg/actuation 2 puffs inhalation Q4-6H PRN atorvastatin 40 mg PO DAILY BD Insulin Syringe U-500 (insulin U-500 syringe-needle) Twice a day NS dulaglutide (Trulicity) 3 mg (0.5 mL) subcut QWEEK empagliflozin (Jardiance) 10 mg PO DAILY flash glucose scanning reader (FreeStyle Home 2 [place]) As directed flash glucose sensor (FreeStyle Home 2 Sensor kit) DIRECTED EVERY 2 WEEKS fluticasone propionate 50 mcg/actuation 1 spray intranasal BID gabapentin 300 mg PO TID insulin regular hum U-500 conc (Humulin R U-500 (Concentrated) Insulin) Inject 135 units before breakfast and 40 units before dinner subcutaneously 2 times a day; metoprolol succinate ER 100 mg PO DAILY omalizumab 375 mg subcut Q2W 30 days omeprazole 40 mg PO DAILY rivaroxaban (Xarelto) 20 mg PO QPM sacubitril-valsartan 49-51 mg (Entresto) 1 tab PO BID 90 days semaglutide (Ozempic) mg subcut torsemide 60 mg PO BID 90 days HPI Comments Details: Patient is 62 year old male with DM type 2 diagnosed who presents for continued management of diabetes. Past medical history: DM2, CHF, cardiomyopathy, heroin abuse, hepatitis C, hypertension, hyperlipidemia, sleep apnea on BiPAP, defibrillator Micro and macrovascular complications: nephropathy and neuropathy, PAD Diabetes medications: ? He is starting a Tandem pump with control IQ this wk . Basal rate(s) (units/hour) : 12 AM to 7 AM? 1 units / hr New 7 AM to 12 AM? 1.5 units / hr Bolus setting Insulin Carbohydrate Ratio (s) 12 AM? to 12 AM 1:25 Correction Factor / Sensitivity Factor 12 AM? to 12 AM 1:70 Active Insulin Time:? 5 hours Target(s): 12 AM? to 12 AM? 110-110 We are unable to download his pump or sensor today Hypoglycemia: experiencing hypoglycemia daily Exercise: limited Ur Coordinator - CDE education: no Ophthalmology evaluation: saw optho 05/2023 Other specialists: heating equipment installer, Laboratory Tests 05/20/21 05/20/21 05/20/21 11:50 11:51 11:51 Creatinine 1.26 Estimated GFR 58 Triglycerides 163 Cholesterol 136 LDL Cholesterol Direct 82 LDL Cholesterol, Calc 74 HDL Cholesterol 30 25-OH Vitamin D Total 19.3 Microalb/Creat Ratio 42.4 PFSH Medical History Tubular adenoma Vitamin D deficiency Hypoxia Paroxysmal atrial fibrillation Biventricular ICD (implantable cardioverter-defibrillator) in place Chest pain Congestive heart failure (CHF) Dyslipidemia Morbid obesity Diabetic 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 Social History Household Members: Friend(s) and Other Household Members Other:: sober living home Housing: House Housing Other:: sober house-rents room Are you a primary animal care worker to a significant other at home: No Do you presently have visiting nurse or other home services: Yes (PECAN GATHERER 3x week) Alcohol intake: former Patient Tobacco Use Status: Former Tobacco user Quit Date: 2002 Tobacco use type: Cigarette Years Smoked: 40 Substance Use Type: Crack/Cocaine, Former Substance User, Heroin, Marijuana and Prescription Drugs Advance Directives Date on File: 07/05/20 service: No Current occupational status: unemployed Physical Exam Vital Signs: Last Vital Signs Pulse 87 07/23/23 09:47 BP 134/68 07/23/23 09:47 BMI result Body Mass Index 45.1 Absence of Cushingoid features. Absence of acromegalic features. Neck exam reveals nl size thyroid about 15 gms. No thyroid nodules palpable. No carotid bruits present. Lungs CTA. Heart S1 S2, Reg R/R. No M/R/ G. Skin exam reveals absence of vitiligo or acanthosis nigricans. Abdominal exam reveals Soft NT/ND with NA BS. No organomegaly present. Neck Other: . Extrem Other: Visual exam of foot performed. No ulcerations or open lesions. No onchomycosis, no callouses.Pulses 2 + distally Sensation decreasedto monofilament exam. Vibratory sensation sensed is decreased with 128 Hz tuning fork Results AMB Hemoglobin A1c AMB Hemoglobin A1c 10.3 % Last Edit by MAMTA Huber on 07/23/23 10:05 Results Reviewed Results Reviewed: Laboratory Last Values Glucose (Clinic) 362 mg/dL (60-115) H* 07/23/23 09:55 Hgb A1c (Clinic) 10.3 % (4.0-6.0) H 07/23/23 09:58 Assessment & Plan Assessment & Plan (1) Diabetes type 2, uncontrolled: Code(s): E11.65 - Type 2 diabetes mellitus with hyperglycemia Category: Medical Qualifiers: Glycemic state: with hyperglycemia Qualified Code(s): E11.65 - Type 2 diabetes mellitus with hyperglycemia Plan: This 62-year-old female with history of type 2 diabetes and insulin resistance being treated with U-500 insulin and Trulicity , Jardiance with poor glycemic control and known microvascular and macrovascular complications namely Nephropathy neuropathy, CAD status post stent. Plan is to to have the patient follow-up with the hospice educator next few weeks. Unfortunately due to lack of data I can not make any adjustments the insulin pump today. He should check his lipid profile Orders: Orders AMB Hemoglobin A1c Today E11.21 - Type 2 diabetes mellitus with diabetic nephropathy, E11.65 - Type 2 diabetes mellitus with hyperglycemia, Z13.9 - Encounter for screening, unspecified Coding Level of Care Code Est Pt Level 4 (64079) Diagnoses Diabetes type 2, uncontrolled E11.65 Glycemic state: with hyperglycemia
[2023-07-23 09:47] VITALS: BP 134/68; PULSE 87; BMI 45.1
[2023-07-23 10:00] LABS: Glucose, Whole Blood 362 mg/dL (60-115)
== END 2023-07-23 10:13 | disposition home or self-care (01) ==
PROVIDERS: PCP Internal Medicine; Visit Provider Internal Medicine Endocrinology, Diabetes & Metabolism
DX: Z13.9 Encounter for screening, unspecified (principal); E11.21 Type 2 diabetes mellitus with diabetic nephropathy; E11.65 Type 2 diabetes mellitus with hyperglycemia
CPT/HCPCS: 99214

== ENCOUNTER → 2023-07-23 09:45 | Outpatient (BNVA) | payer OTHER, SELFPAY | PROVIDERS: PCP Internal Medicine; Visit Provider Internal Medicine Endocrinology, Diabetes & Metabolism | DX: Z46.81 Encounter for fitting and adjustment of insulin pump (principal); E11.65 Type 2 diabetes mellitus with hyperglycemia | CPT/HCPCS: 82947; 83036; 99212 ==

== ENCOUNTER 2023-08-12 15:48 | Outpatient (AMB) | payer OTHER, SELFPAY ==
--- NOTE | 2023-08-12 16:30 | A.OFFVIS_ITS ---
Intake Intake Visit Reasons: 60 min, T-Slim, Dexcom Technician Support Engineer Required: Yes Technician Support Engineer Language: Chemistry Technician Name: Lucrecia [facility] [place]ompanied by: Self / Same As Patient Allergies lisinopril Adverse Reaction (Intermediate, Verified 07/23/23 09:52) cough HPI Comprehensive Diabetes Asmnt Most Recent Diabetes Results: Creatinine 0.94 mg/dL (0.5-1.4) 06/16/23 Blood Urea Nitrogen 14 mg/dL (9-16) 06/16/23 Sodium 139 mmol/L (135-145) 06/16/23 Potassium 5.0 mmol/L (3.3-5.1) 06/16/23 Chloride 105 mmol/L (96-108) 06/16/23 Carbon Dioxide 26 mmol/L (22-29) 06/16/23 Calcium 8.5 mg/dL (8.4-10.2) 06/16/23 [facility] Medical History Tubular adenoma Vitamin D deficiency Hypoxia Paroxysmal atrial fibrillation Biventricular ICD (implantable cardioverter-defibrillator) in place Chest pain Congestive heart failure (CHF) Dyslipidemia Morbid obesity Diabetic neuropathy associated with type 2 diabetes mellitus 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 Social History Household Members: Friend(s) and Other Household Members Other:: sober living home Housing: House Housing Other:: sober house-rents room Are you a primary career resource technician to a significant other at home: No Do you presently have visiting nurse or other home services: Yes (REAL ESTATE PORTFOLIO MANAGER 3x week) Alcohol intake: former Patient Tobacco Use Status: Former Tobacco user Tobacco use type: Cigarette Years Smoked: 40 Substance Use Type: Crack/Cocaine, Former Substance User, Heroin, Marijuana and Prescription Drugs Advance Directives Date on File: 07/05/20 service: No Current occupational status: unemployed Assessment & Plan Assessment & Plan (1) Diabetic nephropathy associated with type 2 diabetes mellitus: Code(s): E11.21 - Type 2 diabetes mellitus with diabetic nephropathy Plan: Patient presents for pump training for T-Slim pump and Dexcom G6. The following topics were reviewed today: -T-Connect sugar on smart phone Tandem Login info: User name: [email or web address] Password: [email or web address] Patient's average glucose for the past 14 days 263 mg/dL Patient above target 73% Patient at target 25% Patient below target 2% Patient reports he has been removing his pump at night due to hypoglycemia, this may be causing him to experience a significant amount of hyperglycemia during the day. Patient continues on Ozempic 0.25 mg, he uses Humulin U 500 in T slim insulin pump Explained to patient that by removing the insulin pump overnight he may be causing his glucose levels to rise too high during the day. Recommended to patient we decrease evening and overnight basal to see if this resolves hypoglycemic events Reviewed how to treat low blood sugars with rule of 15s DME-Reliable Diabetes Troubleshooting after starting new pod or inserting new insulin set: Occlusion, adhesive tape sensitivity, redness Check BG 2 hours after site change Safety information: Patient was able to insert insulin set today without difficulty. Patient understands the basic concepts of pump therapy, how to give insulin for meals and snacks, how to troubleshoot for hyper and hypoglycemia. Setting verified by CDCES, see changes to settings below: Basal rate(s) (units/hour) : 12 AM to 9 AM? 0.5 units / hr New 9 AM to 6 PM? 2 units / hr New 6 PM to 12 AM 0.8 units / hr Bolus setting Insulin Carbohydrate Ratio (s) 12 AM? to 12 AM 1:25 Correction Factor / Sensitivity Factor 12 AM? to 12 AM 1:70 Active Insulin Time:? 5 hours Target(s): 12 AM? to 12 AM? 110-110 Patient Instructions: Patient will follow-up with tobacco prevention health educator in 2 weeks That visit if hypoglycemia has resolved may recommend increase in Ozempic to 0.25 mg dose Coding Level of Care Code Est Pt Level 1 (30413) Diagnoses Diabetic nephropathy associated with type 2 diabetes mellitus E11.21
== END 2023-08-13 10:27 | disposition home or self-care (01) ==
PROVIDERS: PCP Internal Medicine; Visit Provider Registered Nurse Diabetes Educator
DX: E11.21 Type 2 diabetes mellitus with diabetic nephropathy (principal)

== ENCOUNTER → 2023-08-12 15:48 | Outpatient (BNVA) | payer OTHER, SELFPAY | PROVIDERS: PCP Internal Medicine; Visit Provider Registered Nurse Diabetes Educator | DX: E11.21 Type 2 diabetes mellitus with diabetic nephropathy (principal); Z79.4 Long term (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 of insulin | CPT/HCPCS: 99211 ==

== ENCOUNTER 2023-09-02 13:27 | Outpatient (AMB) | payer OTHER, SELFPAY ==
[2023-09-02 13:46] VITALS: BP 130/64; PULSE 95; BMI 44.6
--- NOTE | 2023-09-02 13:46 | MHC.OFFVIS ---
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 Required: No Accompanied by: Self / Same As Patient Allergies lisinopril Adverse Reaction (Intermediate, Verified 07/23/23 09:52) cough Medication List - Last Reconciled 09/02/23 by Lionel Paul MD albuterol sulfate 90 mcg/actuation 2 puffs inhalation Q4-6H PRN atorvastatin 40 mg PO DAILY BD Insulin Syringe U-500 (insulin U-500 syringe-needle) Twice a day NS empagliflozin (Jardiance) 10 mg PO DAILY flash glucose scanning reader ([employer] TVStyle Home 2 [place]) As directed flash glucose sensor (FreeStyle Home 2 Sensor kit) DIRECTED EVERY 2 WEEKS fluticasone propionate 50 mcg/actuation 1 spray intranasal BID gabapentin 300 mg PO TID insulin regular hum U-500 conc (Humulin R U-500 (Concentrated) Insulin) Inject 135 units before breakfast and 40 units before dinner subcutaneously 2 times a day; metoprolol succinate ER 100 mg PO DAILY omeprazole 40 mg PO DAILY rivaroxaban (Xarelto) 20 mg PO QPM sacubitril-valsartan 49-51 mg (Entresto) 1 tab PO BID 90 days semaglutide (Ozempic) mg subcut torsemide 60 mg PO BID 90 days HPI Comments Details: 63-year-old gentleman here for follow up. He previously had nonischemic cardiomyopathy which was in the setting of cocaine and heroin abuse. He was found to have significant PVC burden of 40,000 PVCs in 24 hours and was put on amiodarone with improvement in ejection fraction to 50-55%. While on amiodarone he had some changes on pulmonary function testing with moderately reduced DLCO and we decided to stop the amiodarone. He previously had cardiac catheterization which did not show any coronary artery disease. In 2020 he was admitted at [facility] followed by [facility] for congestive heart failure. At [facility] was found to have difficult to control atrial flutter and his ejection fraction was severely reduced. Subsequently was admitted again at [facility] and it appears he had Bi V AICD placement. He had a device interrogation done and it showed rising thoracic impedance as well as runs of ventricular tachycardia which was nonsustained. He did not get any therapies from his device. His Bumex was changed to torsemide because he continued to gain weight while taking the diuretics. Since then he has been doing well. His device interrogation has shown that he is biventricular pacing more than 95% time now. Repeat echocardiography has shown normal left ventricular function. He returns for follow-up. He has been experiencing some shortness of breath. He also feels tired. He takes torsemide in the morning and at night around 9-10 o'clock. He is saying that he urinates all night and does not sleep well. He also has joint issues including back and right knee issues ongoing. 12/10/22: He is here for f/u. He was given metolazone by pulm which helped diuresis but he developed hypokalemia and was in the ER. He is saying he has not been taking the metolazone since then. He has fatigue and dyspnea. He has been taking torsemide but misses it on some days. He is complaining of some left sided chest pains off and on. 09/02/2023: He is here for follow-up. He is on Ozempic but is complaining that he has not lost any weight. Taking medications regularly but torsemide he misses on some days when he has appointments or when he is going out. He is saying he takes the evening dose but the morning dose is not very consistent with. No cardiac sounding chest pain. 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 Social History Household Members: Friend(s) and Other Household Members Other:: sober living home Housing: House Housing Other:: sober house-rents room Are you a primary healthcare consultant to a significant other at home: No Do you presently have visiting nurse or other home services: Yes (REMOTE PILOT OPERATOR 3x week) Alcohol intake: former Patient Tobacco Use Status: Former Tobacco user Tobacco use type: Cigarette Years Smoked: 40 Substance Use Type: Crack/Cocaine, Former Substance User, Heroin, Marijuana and Prescription Drugs Advance Directives Date on File: 07/05/20 service: No Current occupational status: unemployed Review of Systems Const Denies chills, Denies fatigue, Denies fever(s), Denies frequent falls, Denies weakness, Denies weight gain and Denies weight loss ENT Denies dizziness Card Denies chest pain, Denies leg edema, Denies lightheadedness, Denies palpitations, Denies dyspnea and Denies dyspnea on exertion Resp Denies cough, Denies dyspnea and Denies dyspnea on exertion GI Denies hematochezia Musc Denies abnormal gait, Denies muscle weakness, Denies numbness, Denies radiating pain into limb and Denies tingling Neuro Denies abnormal gait, Denies dizziness, Denies frequent falls, Denies numbness, Denies tingling and Denies weakness Endo Denies fatigue and Denies palpitations Physical Exam Vital Signs: Last Vital Signs Pulse 95 09/02/23 13:46 BP 130/64 09/02/23 13:46 BMI result Body Mass Index 44.6 GENERAL APPEARANCE: In no acute distress. NECK: no carotid bruit. SKIN: no suspicious lesions, warm and dry. HEART: no murmurs, regular rate and rhythm. LUNGS: Clear to auscultation bilaterally ABDOMEN: soft,? non tender, mildly distended. EXTREMITIES:? + edema. PERIPHERAL PULSES: equal. NEUROLOGIC: No gross deficits, AAO X 3 Assessment & Plan Assessment & Plan (1) Chronic heart failure: Code(s): I50.9 - Heart failure, unspecified Category: Medical Plan Very pleasant 63 year gentleman with chronic heart failure. He is here and appears more or less euvolemic at this point and is on torsemide 60 mg twice a day. On some days he misses torsemide and I have advised him that he should not be missing his medications because he is quite prone to volume overload and unfortunately has been sent to the emergency department previously. For started on Ozempic by endocrinology but he is saying his weight has not changed significantly. I have asked him discuss this further with endocrinology. If in fact he does not lose weight with diet and with Ozempic then considering bariatric surgery in someone like him with multiple comorbidities is quite reasonable. He is diabetic, has congestive heart failure, significant arthritis and mobility issues due to his weight. He will see us back in few months. Same medications for now. Thank you for allowing me to participate in the care of your patient. Please feel free to contact me if you have any questions. Coding Level of Care Code Est Pt Level 4 (63941) Diagnoses Chronic heart failure I50.9
== END 2023-09-02 14:51 | disposition home or self-care (01) ==
PROVIDERS: PCP Internal Medicine; Visit Provider Internal Medicine Cardiovascular Disease
DX: I50.9 Heart failure, unspecified (principal)
CPT/HCPCS: 99214

== ENCOUNTER → 2023-09-02 13:27 | Outpatient (BNVA) | payer OTHER, SELFPAY | PROVIDERS: PCP Internal Medicine; Visit Provider Internal Medicine Cardiovascular Disease | DX: Z46.81 Encounter for fitting and adjustment of insulin pump (principal); E11.40 Type 2 diabetes mellitus with diabetic neuropathy, unspecified; J45.909 Unspecified asthma, uncomplicated; R06.09 Other forms of dyspnea; Z91.09 Other allergy status, other than to drugs and biological substances; E66.01 Morbid (severe) obesity due to excess calories; G47.33 Obstructive sleep apnea (adult) (pediatric); I50.9 Heart failure, unspecified; Z99.89 Dependence on other enabling machines and devices; Z68.41 Body mass index [BMI] 40.0-44.9, adult | CPT/HCPCS: 99211; 99212 ==

== ENCOUNTER 2023-09-02 14:33 | Outpatient (AMB) | payer OTHER, SELFPAY ==
[2023-09-02 14:37] VITALS: BP 126/62; PULSE 92; O2SAT 94; BMI 44.7
--- NOTE | 2023-09-02 14:37 | MHC.OFFVIS ---
Vital Signs 09/02/23 14:37 Height 5 ft 11 in Weight 320 lb 12.361 oz BMI 44.7 BP 126/62 Blood Pressure Location Lt brachial Position Sitting Pulse 92 Pulse Source Doppler Pulse Oximetry (%) 94 Oxygen Delivery Method Room Air Intake Visit Reasons: asthma Allergies lisinopril Adverse Reaction (Intermediate, Verified 07/23/23 09:52) cough HPI HPI asthma: Details: 63-year-old gentleman with underlying history significant for systolic heart failure with EF of 10-15% on diuretic therapy prior history of cocaine abuse followed for allergic asthma and JANELL.? Patient continues on Xolair and albuterol MDI with excellent control of his asthma symptoms.? He denies recent asthma exacerbations. He has been using CPAP with good control of his underlying sleep apnea symptoms. His lower extremity edema and heart failure symptoms not as well controlled since he has not fully compliant with his torsemide regimen. 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 Social History Household Members: Friend(s) and Other Household Members Other:: sober living home Housing: House Housing Other:: sober house-rents room Are you a primary childcare attendant to a significant other at home: No Do you presently have visiting nurse or other home services: Yes (GLASS CYLINDER FLANGER 3x week) Alcohol intake: former Patient Tobacco Use Status: Former Tobacco user Tobacco use type: Cigarette Years Smoked: 40 Substance Use Type: Crack/Cocaine, Former Substance User, Heroin, Marijuana and Prescription Drugs Advance Directives Date on File: 07/05/20 service: No Current occupational status: unemployed Review of Systems Const Denies daytime sleepiness, Denies excessive sweating, Denies fatigue, Denies fever(s), Denies lethargy, Denies malaise, Denies night sweats, Denies snoring and Denies weight loss Eyes Denies blurry vision and Denies itchy eyes ENT Denies nasal congestion, Denies post nasal drip, Denies sinus pain, Denies sinus pressure and Denies other ( Thrush) Card Denies chest pain, Reports pedal edema, Reports leg edema, Denies dyspnea, Reports dyspnea on exertion, Denies orthopnea and Denies paroxysmal nocturnal dyspnea Resp Denies cough, Denies hemoptysis, Denies excessive phlegm production, Denies dyspnea, Reports dyspnea on exertion, Denies snoring and Denies wheezing GI Denies abdominal pain and Denies heartburn Musc Denies myalgias, Denies arthralgias and Denies joint swelling Skin/Breast Denies rash Neuro Denies memory loss and Denies seizure-like activity Psych Denies abnormal sleep pattern, Denies anxiety and Denies memory loss Endo Denies excessive sweating, Denies fatigue and Denies heat intolerance Wander/Lymph Denies easy bruising Aller/Immun Denies itchy eyes, Denies seasonal rhinorrhea and Denies wheezing Physical Exam Vital Signs: Last Vital Signs Pulse 92 09/02/23 14:37 BP 126/62 09/02/23 14:37 Pulse Ox 94 09/02/23 14:37 Oxygen Delivery Method Room Air 09/02/23 14:37 BMI result Body Mass Index 44.7 Const General: no acute distress and alert Nutritional Appearance: obese Orientation/consciousness: Other orientation findings ( oriented) HEENT Head: Yes atraumatic Eyes General: appearance normal, both eyes and all related structures Sclerae: sclerae normal EOM: EOMs intact bilaterally Neck Neck: Yes supple Lymphatic: no lymphadenopathy noted Resp Effort & Inspection: normal respiratory effort and no use of accessory muscles Auscultation: clear to auscultation bilaterally Cardio Rate: regular rate Rhythm: regular rhythm Heart sounds: no gallops, no murmurs and no rubs Skin General skin exam: other ( warm) Extrem General: No clubbing, No cyanosis and Yes edema (1+ bilateral) Assessment & Plan Assessment & Plan (1) Asthma: Code(s): J45.909 - Unspecified asthma, uncomplicated Category: Medical Plan: Well controlled on current regimen Xolair and albuterol MDI. Continue current regimen. (2) Environmental allergies: Code(s): Z91.09 - Other allergy status, other than to drugs and biological substances Category: Medical Plan: Well controlled on Xolair. Continue current regimen. (3) ACOSTA (dyspnea on exertion): Code(s): R06.09 - Other forms of dyspnea Category: Medical Plan: Multifactorial with significant dilution from underlying systolic congestive heart failure with EF of 10-15% and obesity. Extremity edema is suboptimally controlled as patient is not fully compliant with his diuretic regimen. Patient advised to be fully compliant with his current regimen of torsemide 60 b.i.d.. (4) Obesity due to excess calories: Code(s): E66.09 - Other obesity due to excess calories Category: Medical Qualifiers: Obesity classification: adult class 3 (BMI >= 40) Serious obesity comorbidity presence: with serious comorbidity Body mass index: BMI 45.0-49.9 Qualified Code(s): E66.01 - Morbid (severe) obesity due to excess calories; Z68.42 - Body mass index [BMI] 45.0-49.9, adult Plan: Weight loss strategies discussed with the patient. Information weight management service provided. (5) JANELL on CPAP: Code(s): G47.33 - Obstructive sleep apnea (adult) (pediatric); Z99.89 - Dependence on other enabling machines and devices Category: Medical Plan: Well controlled on current CPAP therapy. Continue CPAP therapy. Coding Level of Care Code Est Pt Level 5 (28536) Diagnoses Asthma J45.909 Environmental allergies Z91.09 ACOSTA (dyspnea on exertion) R06.09 Class 3 severe obesity due to excess calories with serious comorbidity and body mass index (BMI) of 45.0 to 49.9 in adult E66.01; Z68.42 Obesity classification: adult class 3 (BMI >= 40) Serious obesity comorbidity presence: with serious comorbidity Body mass index: BMI 45.0-49.9 JANELL on CPAP G47.33; Z99.89
== END 2023-09-02 14:56 | disposition home or self-care (01) ==
PROVIDERS: PCP Internal Medicine; Visit Provider Internal Medicine Pulmonary Disease
DX: J45.909 Unspecified asthma, uncomplicated (principal); G47.33 Obstructive sleep apnea (adult) (pediatric); Z99.89 Dependence on other enabling machines and devices; E66.01 Morbid (severe) obesity due to excess calories; Z68.42 Body mass index [BMI] 45.0-49.9, adult
CPT/HCPCS: 99214

== ENCOUNTER 2023-09-02 15:15 | Outpatient (AMB) | payer OTHER, SELFPAY ==
--- NOTE | 2023-09-02 15:37 | MHC.AMDMED ---
Intake Intake Visit Reasons: 60 min Advertising Display Rotator Required: Yes Advertising Display Rotator Language: Head Resident Name: Ramiro [facility] Information Interpreted: non-clinical & clinical Accompanied by: Self / Same As Patient Allergies lisinopril Adverse Reaction (Intermediate, Verified 07/23/23 09:52) cough HPI Comprehensive Diabetes Asmnt Most Recent Diabetes Results: Creatinine 0.94 mg/dL (0.5-1.4) 06/16/23 Blood Urea Nitrogen 14 mg/dL (9-16) 06/16/23 Sodium 139 mmol/L (135-145) 06/16/23 Potassium 5.0 mmol/L (3.3-5.1) 06/16/23 Chloride 105 mmol/L (96-108) 06/16/23 Carbon Dioxide 26 mmol/L (22-29) 06/16/23 Calcium 8.5 mg/dL (8.4-10.2) 06/16/23 [facility] Medical History Tubular adenoma Vitamin D deficiency Hypoxia Paroxysmal atrial fibrillation Biventricular ICD (implantable cardioverter-defibrillator) in place Chest pain Congestive heart failure (CHF) Dyslipidemia Morbid obesity Diabetic neuropathy associated with type 2 diabetes mellitus 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 Social History Household Members: Friend(s) and Other Household Members Other:: sober living home Housing: House Housing Other:: sober house-rents room Are you a primary respiratory care technician to a significant other at home: No Do you presently have visiting nurse or other home services: Yes (POLY PACKER AND HEAT SEALER 3x week) Alcohol intake: former Patient Tobacco Use Status: Former Tobacco user Tobacco use type: Cigarette Years Smoked: 40 Substance Use Type: Crack/Cocaine, Former Substance User, Heroin, Marijuana and Prescription Drugs Advance Directives Date on File: 07/05/20 service: No Current occupational status: unemployed Assessment & Plan Assessment & Plan (1) Diabetic neuropathy associated with type 2 diabetes mellitus: Code(s): E11.40 - Type 2 diabetes mellitus with diabetic neuropathy, unspecified Plan: Patient presents for pump training for T-Slim pump and Dexcom G6. The following topics were reviewed today: -T-Connect sugar on smart phone Tandem Login info: User name: [email or web address]: [email or web address] Patient's average glucose for the past 14 days 253 mg/dL Patient above target 71% Patient at target 28% Patient below target 1% Patient reports he is stopped removing his pump overnight, hypoglycemia has improved, but glucose is still dropping low on some morning. Patient reports he is on Ozempic 0.5 mg, he uses Humulin U 500 in T slim insulin pump Reviewed how to treat low blood sugars with rule of 15s Will send message to Dr. Encarnacion to see if it would be appropriate to increase his Ozempic to 1 mg, due to persistent hyperglycemia during the day. Also discussed with patient the importance of bolusing 30 minutes prior to meals, as U 500 has a longer action time and needs more time to start working in his body Recommended he has no in his kitchen or on his refrigerator to remind him to take his insulin when he is preparing his meal DME-Reliable Diabetes Troubleshooting after starting new pod or inserting new insulin set: Occlusion, adhesive tape sensitivity, redness Check BG 2 hours after site change Safety information: Patient was able to insert insulin set today without difficulty. Patient understands the basic concepts of pump therapy, how to give insulin for meals and snacks, how to troubleshoot for hyper and hypoglycemia. Setting verified by CDCES, see changes to settings below: Basal rate(s) (units/hour) : 12 AM to 9 AM? 0.5 units / hr New 12 AM to 9 AM? 0.4 units / hr 9 AM to 6 PM? 2 units / hr New 9 AM to 6 PM? 2.25 units / hr 6 PM to 12 AM 0.8 units / hr Bolus setting Insulin Carbohydrate Ratio (s) 12 AM? to 12 AM 1:25 Correction Factor / Sensitivity Factor 12 AM? to 12 AM 1:70 Active Insulin Time:? 5 hours Target(s): 12 AM? to 12 AM? 110-110 Patient Instructions: Patient instructed to follow-up with art educator in 6 weeks Contact art educator if hypoglycemic events increase Coding Level of Care Code Est Pt Level 1 (75186) Diagnoses Diabetic neuropathy associated with type 2 diabetes mellitus E11.40
== END 2023-09-02 15:41 | disposition home or self-care (01) ==
PROVIDERS: PCP Internal Medicine; Visit Provider Registered Nurse Diabetes Educator
DX: E11.40 Type 2 diabetes mellitus with diabetic neuropathy, unspecified (principal)

== ENCOUNTER → 2023-09-14 23:59 | Outpatient (BNV) | payer OTHER, SELFPAY ==
--- NOTE | 2023-10-13 20:56 | A.OFFVIS_ITS ---
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 Social History Household Members: Friend(s) and Other Household Members Other:: sober living home Housing: House Housing Other:: sober house-rents room Are you a primary career advisor to a significant other at home: No Do you presently have visiting nurse or other home services: Yes (AIRCRAFT LAY OUT WORKER 3x week) Alcohol intake: former Patient Tobacco Use Status: Former Tobacco user Tobacco use type: Cigarette Years Smoked: 40 Substance Use Type: Crack/Cocaine, Former Substance User, Heroin, Marijuana and Prescription Drugs Advance Directives Date on File: 07/05/20 service: No Current occupational status: unemployed Office Procedures Cardiac Device Check Cardiac Device Check Details: HF monitoring Stable thoracic impedance. [id number] Cardiac Device Interrogation, cardio physiologic monitor Procedure code (CPT) selection complete Assessment & Plan Assessment & Plan (1) Nonischemic cardiomyopathy: Code(s): I42.8 - Other cardiomyopathies Category: Medical Plan: Coding Level of Care Code Procedure Only Diagnoses Nonischemic cardiomyopathy I42.8 CPT Codes Cardiac Device Check - Cardiac Device 15: [id number] Cardiac Device Interrogation, cardio physiologic monitor ([id number])
== END ==
PROVIDERS: PCP Internal Medicine; Visit Provider Internal Medicine Cardiovascular Disease
DX: I42.8 Other cardiomyopathies (principal); Z95.810 Presence of automatic (implantable) cardiac defibrillator
CPT/HCPCS: 93297

== ENCOUNTER 2023-10-02 13:28 | Outpatient (AMB) | payer OTHER, SELFPAY ==
[2023-10-02 13:30] VITALS: BMI 45.5
--- NOTE | 2023-10-02 13:30 | A.OFFVIS_ITS ---
Vital Signs 10/02/23 13:30 Height 5 ft 11 in Weight 326 lb 4.546 oz BMI 45.5 Intake Visit Reasons: Asthma Liability Claims Representative Required: Yes Liability Claims Representative Name: Sugar Zepeda SusannaChaya Allergies lisinopril Adverse Reaction (Intermediate, Verified 07/23/23 09:52) cough HPI HPI Asthma: Details: 63-year-old gentleman with underlying history significant for systolic heart failure with EF of 10-15% on diuretic therapy prior history of cocaine abuse followed for allergic asthma and JANELL.? Patient continues on Xolair and albuterol MDI with excellent control of his asthma symptoms.? He denies recent asthma exacerbations. He has been using CPAP with good control of his underlying sleep apnea symptoms. His lower extremity edema and heart failure symptoms with reasonable control on torsemide 60 mg b.i.d. when he uses it consistently. [facility] Medical History Tubular adenoma Vitamin D deficiency Hypoxia Paroxysmal atrial fibrillation Biventricular ICD (implantable cardioverter-defibrillator) in place Chest pain Congestive heart failure (CHF) Dyslipidemia Morbid obesity Diabetic neuropathy associated with type 2 diabetes mellitus [facility] (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 Social History Household Members: Friend(s) and Other Household Members Other:: sober living home Housing: House Housing Other:: sober house-rents room Are you a primary care navigator to a significant other at home: No Do you presently have visiting nurse or other home services: Yes (DIRECTOR RETAIL BRAND DEVELOPMENT 3x week) Alcohol intake: former Patient Tobacco Use Status: Former Tobacco user Tobacco use type: Cigarette Years Smoked: 40 Substance Use Type: Crack/Cocaine, Former Substance User, Heroin, Marijuana and Prescription Drugs Advance Directives Date on File: 07/05/20 service: No Current occupational status: unemployed Review of Systems Const Denies daytime sleepiness, Denies excessive sweating, Denies fatigue, Denies fever(s), Denies lethargy, Denies malaise, Denies night sweats, Denies snoring and Denies weight loss Eyes Denies blurry vision and Denies itchy eyes ENT Denies nasal congestion, Denies post nasal drip, Denies sinus pain, Denies sinus pressure and Denies other ( Thrush) Card Denies chest pain, Denies pedal edema, Denies dyspnea, Denies orthopnea and Denies paroxysmal nocturnal dyspnea Resp Denies cough, Denies hemoptysis, Denies excessive phlegm production, Denies dyspnea, Denies snoring and Denies wheezing GI Denies abdominal pain and Denies heartburn Musc Denies myalgias, Denies arthralgias and Denies joint swelling Skin/Breast Denies rash Neuro Denies memory loss and Denies seizure-like activity Psych Denies abnormal sleep pattern, Denies anxiety and Denies memory loss Endo Denies excessive sweating, Denies fatigue and Denies heat intolerance Wander/Lymph Denies easy bruising Aller/Immun Denies itchy eyes, Denies seasonal rhinorrhea and Denies wheezing Physical Exam Vital Signs: BMI result Body Mass Index 45.5 Const General: no acute distress and alert Nutritional Appearance: not obese Orientation/consciousness: Other orientation findings ( oriented) HEENT Head: Yes atraumatic Eyes General: appearance normal, both eyes and all related structures Sclerae: sclerae normal EOM: EOMs intact bilaterally Neck Neck: Yes supple Lymphatic: no lymphadenopathy noted Resp Effort & Inspection: normal respiratory effort and no use of accessory muscles Auscultation: clear to auscultation bilaterally Cardio Rate: regular rate Rhythm: regular rhythm Heart sounds: no gallops, no murmurs and no rubs Skin General skin exam: other ( warm) Extrem General: No clubbing, No cyanosis and Yes edema (2+ bilateral) Assessment & Plan Assessment & Plan (1) Asthma: Code(s): J45.909 - Unspecified asthma, uncomplicated Category: Medical Plan: Well controlled on Xolair and albuterol MDI. Continue current regimen. (2) Environmental allergies: Code(s): Z91.09 - Other allergy status, other than to drugs and biological substances Category: Medical Plan: Will control on Xolair. Continue current regimen. (3) Leg edema: Code(s): R60.0 - Localized edema Category: Medical Plan: Improve control on torsemide 60 b.i.d.. Continue current regimen. Coding Level of Care Code Est Pt Level 4 (08760) Diagnoses Asthma J45.909 Environmental allergies Z91.09 Leg edema R60.0
== END 2023-10-02 13:58 | disposition home or self-care (01) ==
PROVIDERS: PCP Internal Medicine; Visit Provider Internal Medicine Pulmonary Disease
DX: J45.909 Unspecified asthma, uncomplicated (principal); Z91.09 Other allergy status, other than to drugs and biological substances; R60.0 Localized edema
CPT/HCPCS: 99214

== ENCOUNTER → 2023-10-02 13:28 | Outpatient (BNVA) | payer OTHER, SELFPAY | PROVIDERS: PCP Internal Medicine; Visit Provider Internal Medicine Pulmonary Disease | DX: J45.909 Unspecified asthma, uncomplicated (principal); Z91.09 Other allergy status, other than to drugs and biological substances; R60.0 Localized edema | CPT/HCPCS: 99212 ==

== ENCOUNTER 2023-10-05 10:51 | Outpatient (REF) | payer OTHER, SELFPAY ==
[2023-10-05 14:09] LABS: Creatinine Urine 54.04 mg/dL; Microalbum/Creatinine Ratio Ur 88.8 ug/mg cr (<30)
[2023-10-05 14:21] LABS: Cholesterol 161 mg/dL (<200); Triglycerides 100 mg/dL (<150); Uric Acid 9.3 mg/dL (3.4-7.0)
[2023-10-05 14:59] LABS: HDL Cholesterol 41 mg/dL (>40); LDL Cholesterol Calculated 100 mg/dL (<100); Reflex LDLD? No
== END 2023-10-05 10:52 | disposition home or self-care (01) ==
LOC: HO.HHCL 10:51
PROVIDERS: Visit Provider Internal Medicine
DX: M10.9 Gout, unspecified (principal); E11.40 Type 2 diabetes mellitus with diabetic neuropathy, unspecified; Z79.4 Long term (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 of insulin
CPT/HCPCS: 36415; 80061; 82043; 82570; 84550

== ENCOUNTER → 2023-10-15 23:59 | Outpatient (BNV) | payer OTHER, SELFPAY ==
--- NOTE | 2023-11-09 15:51 | A.OFFVIS_ITS ---
Intake Visit Reasons: Remote ICD check- Medtronic Allergies lisinopril Adverse Reaction (Intermediate, Verified 10/23/23 13:12) cough PFSH Medical History Tubular adenoma Vitamin D deficiency Hypoxia Paroxysmal atrial fibrillation Biventricular ICD (implantable cardioverter-defibrillator) in place Chest pain Congestive heart failure (CHF) Dyslipidemia Morbid obesity Diabetic neuropathy associated with type 2 diabetes mellitus prison (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 Social History Household Members: Friend(s) and Other Household Members Other:: sober living home Housing: House Housing Other:: sober house-rents room Are you a primary early breastfeeding care specialist to a significant other at home: No Do you presently have visiting nurse or other home services: Yes (BUDGET CONTROLLER 3x week) Alcohol intake: former Patient Tobacco Use Status: Former Tobacco user Tobacco use type: Cigarette Years Smoked: 40 Substance Use Type: Crack/Cocaine, Former Substance User, Heroin, Marijuana and Prescription Drugs Advance Directives Date on File: 07/05/20 service: No Current occupational status: unemployed Office Procedures Cardiac Device Check Cardiac Device Check Details: ICD Battery 2.5 years Biv Paced 99%. No new alerts. [id number] Cardiac Device Check, multi lead implantable defibrillator Procedure code (CPT) selection complete Assessment & Plan Assessment & Plan (1) Biventricular ICD (implantable cardioverter-defibrillator) in place: Comment: Medtronic, implanted 06/28/20 Code(s): Z95.810 - Presence of automatic (implantable) cardiac defibrillator Category: Medical Plan: Coding Level of Care Code Procedure Only Diagnoses Biventricular ICD (implantable cardioverter-defibrillator) in place Z95.810 CPT Codes Cardiac Device Check - Cardiac Device 6: 88132-[id number] Cardiac Device Check, multi lead implantable defibrillator ([id number])
== END ==
PROVIDERS: PCP Internal Medicine; Visit Provider Internal Medicine Cardiovascular Disease
DX: Z45.02 Encounter for adjustment and management of automatic implantable cardiac defibrillator (principal)
CPT/HCPCS: 93295

== ENCOUNTER → 2023-10-15 23:59 | Outpatient (BNV) | payer OTHER, SELFPAY ==
--- NOTE | 2023-11-09 15:54 | A.OFFVIS_ITS ---
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 Social History Household Members: Friend(s) and Other Household Members Other:: sober living home Housing: House Housing Other:: sober house-rents room Are you a primary director of patient care to a significant other at home: No Do you presently have visiting nurse or other home services: Yes (QUALITY ASSURANCE ANALYST 3x week) Alcohol intake: former Patient Tobacco Use Status: Former Tobacco user Tobacco use type: Cigarette Years Smoked: 40 Substance Use Type: Crack/Cocaine, Former Substance User, Heroin, Marijuana and Prescription Drugs Advance Directives Date on File: 07/05/20 service: No Current occupational status: unemployed Office Procedures Cardiac Device Check Cardiac Device Check Details: HF monitoring No signs of obvious volume overload. [id number] Cardiac Device Interrogation, cardio physiologic monitor Procedure code (CPT) selection complete Assessment & Plan Assessment & Plan (1) Biventricular ICD (implantable cardioverter-defibrillator) in place: Comment: Medtronic, implanted 06/28/20 Code(s): Z95.810 - Presence of automatic (implantable) cardiac defibrillator Category: Medical Plan: Coding Level of Care Code Procedure Only Diagnoses Biventricular ICD (implantable cardioverter-defibrillator) in place Z95.810 CPT Codes Cardiac Device Check - Cardiac Device 15: [id number] Cardiac Device Interrogation, cardio physiologic monitor ([id number])
== END ==
PROVIDERS: PCP Internal Medicine; Visit Provider Internal Medicine Cardiovascular Disease
DX: Z45.02 Encounter for adjustment and management of automatic implantable cardiac defibrillator (principal)
CPT/HCPCS: 93297

== ENCOUNTER 2023-10-22 13:05 | Outpatient (AMB) | payer OTHER, SELFPAY ==
--- NOTE | 2023-10-22 13:19 | A.OFFVIS_ITS ---
Vital Signs 10/22/23 13:20 Height 5 ft 11 in Weight 322 lb 15.635 oz BMI 45.0 BP 137/62 Blood Pressure Location Lt brachial Position Sitting Pulse 99 Pulse Source Doppler Pulse Oximetry (%) 92 Oxygen Delivery Method Room Air Intake Visit Reasons: Asthma Allergies lisinopril Adverse Reaction (Intermediate, Verified 10/22/23 13:25) cough HPI HPI Asthma: Details: 63-year-old gentleman with underlying history significant for systolic heart failure with EF of 10-15% on diuretic therapy prior history of cocaine abuse followed for allergic asthma and JANELL.? Patient continues on Xolair and albuterol MDI with excellent control of his asthma symptoms.? He denies recent asthma exacerbations. He has been using CPAP with good control of his underlying sleep apnea symptoms. His lower extremity edema and heart failure symptoms with reasonable control on torsemide 60 mg b.i.d. when he uses it consistently. After the last visit he endorses slow improvement in his symptoms. [facility] Medical History Tubular adenoma Vitamin D deficiency Hypoxia Paroxysmal atrial fibrillation Biventricular ICD (implantable cardioverter-defibrillator) in place Chest pain Congestive heart failure (CHF) Dyslipidemia Morbid obesity Diabetic neuropathy associated with type 2 diabetes mellitus [facility] (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 Social History Household Members: Friend(s) and Other Household Members Other:: sober living home Housing: House Housing Other:: sober house-rents room Are you a primary career agent to a significant other at home: No Do you presently have visiting nurse or other home services: Yes (ROLLER PRESSER OPERATOR 3x week) Alcohol intake: former Patient Tobacco Use Status: Former Tobacco user Tobacco use type: Cigarette Years Smoked: 40 Substance Use Type: Crack/Cocaine, Former Substance User, Heroin, Marijuana and Prescription Drugs Advance Directives Date on File: 07/05/20 service: No Current occupational status: unemployed Review of Systems Const Denies daytime sleepiness, Denies excessive sweating, Denies fatigue, Denies fever(s), Denies lethargy, Denies malaise, Denies night sweats, Denies snoring and Denies weight loss Eyes Denies blurry vision and Denies itchy eyes ENT Denies nasal congestion, Denies post nasal drip, Denies sinus pain, Denies sinus pressure and Denies other ( Thrush) Card Denies chest pain, Denies pedal edema, Denies dyspnea, Denies orthopnea and Denies paroxysmal nocturnal dyspnea Resp Denies cough, Denies hemoptysis, Denies excessive phlegm production, Denies dyspnea, Denies snoring and Denies wheezing GI Denies abdominal pain and Denies heartburn Musc Denies myalgias, Denies arthralgias and Denies joint swelling Skin/Breast Denies rash Neuro Denies memory loss and Denies seizure-like activity Psych Denies abnormal sleep pattern, Denies anxiety and Denies memory loss Endo Denies excessive sweating, Denies fatigue and Denies heat intolerance Wander/Lymph Denies easy bruising Aller/Immun Denies itchy eyes, Denies seasonal rhinorrhea and Denies wheezing Physical Exam Vital Signs: Last Vital Signs Pulse 99 10/22/23 13:20 BP 137/62 10/22/23 13:20 Pulse Ox 92 10/22/23 13:20 Oxygen Delivery Method Room Air 10/22/23 13:20 BMI result Body Mass Index 45.0 Const General: no acute distress and alert Nutritional Appearance: not obese Orientation/consciousness: Other orientation findings ( oriented) HEENT Head: Yes atraumatic Eyes General: appearance normal, both eyes and all related structures Sclerae: sclerae normal EOM: EOMs intact bilaterally Neck Neck: Yes supple Lymphatic: no lymphadenopathy noted Resp Effort & Inspection: normal respiratory effort and no use of accessory muscles Auscultation: clear to auscultation bilaterally Cardio Rate: regular rate Rhythm: regular rhythm Heart sounds: no gallops, no murmurs and no rubs Skin General skin exam: other ( warm) Extrem General: No clubbing, No cyanosis and Yes edema (1+ bilateral) Assessment & Plan Assessment & Plan (1) JANELL on CPAP: Code(s): G47.33 - Obstructive sleep apnea (adult) (pediatric); Z99.89 - Dependence on other enabling machines and devices Category: Medical Plan: Well controlled on current CPAP therapy. Continue CPAP therapy. (2) Asthma: Code(s): J45.909 - Unspecified asthma, uncomplicated Category: Medical Plan: 0 control on current regimen of zone and albuterol MDI. Continue current regimen. (3) Leg edema: Code(s): R60.0 - Localized edema Category: Medical Plan: Improved control with consistent use of torsemide 60 mg twice a day. Continue current regimen. Coding Level of Care Code Est Pt Level 4 (71085) Diagnoses JANELL on CPAP G47.33; Z99.89 Asthma J45.909 Leg edema R60.0
[2023-10-22 13:20] VITALS: BP 137/62; PULSE 99; O2SAT 92; BMI 45.0
== END 2023-10-22 13:41 | disposition home or self-care (01) ==
PROVIDERS: PCP Internal Medicine; Visit Provider Internal Medicine Pulmonary Disease
DX: G47.33 Obstructive sleep apnea (adult) (pediatric) (principal); Z99.89 Dependence on other enabling machines and devices; J45.909 Unspecified asthma, uncomplicated; R60.0 Localized edema
CPT/HCPCS: 99214

== ENCOUNTER → 2023-10-22 13:05 | Outpatient (BNVA) | payer OTHER, SELFPAY | PROVIDERS: PCP Internal Medicine; Visit Provider Internal Medicine Pulmonary Disease | DX: Z46.81 Encounter for fitting and adjustment of insulin pump (principal); E11.21 Type 2 diabetes mellitus with diabetic nephropathy; J45.909 Unspecified asthma, uncomplicated; G47.33 Obstructive sleep apnea (adult) (pediatric); R60.0 Localized edema; Z99.89 Dependence on other enabling machines and devices | CPT/HCPCS: 99211; 99212 ==

== ENCOUNTER 2023-10-22 13:49 | Outpatient (AMB) | payer OTHER, SELFPAY ==
--- NOTE | 2023-10-22 14:29 | MHC.AMDMED ---
Intake Intake Visit Reasons: 30 min/CONFIRMED Allergies lisinopril Adverse Reaction (Intermediate, Verified 10/22/23 13:25) cough HPI Comprehensive Diabetes Asmnt Most Recent Diabetes Results: Microalb/Creat Ratio 88.8 ug/mg cr (<30) H 10/05/23 Cholesterol 161 mg/dL (<200) 10/05/23 HDL Cholesterol 41 mg/dL (>40) 10/05/23 Triglycerides 100 mg/dL (<150) 10/05/23 [facility] Medical History Tubular adenoma Vitamin D deficiency Hypoxia Paroxysmal atrial fibrillation Biventricular ICD (implantable cardioverter-defibrillator) in place Chest pain Congestive heart failure (CHF) Dyslipidemia Morbid obesity Diabetic neuropathy associated with type 2 diabetes mellitus buttermaker (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 Social History Household Members: Friend(s) and Other Household Members Other:: sober living home Housing: House Housing Other:: sober house-rents room Are you a primary critical care clinical nurse specialist to a significant other at home: No Do you presently have visiting nurse or other home services: Yes (CAR BRACER 3x week) Alcohol intake: former Patient Tobacco Use Status: Former Tobacco user Tobacco use type: Cigarette Years Smoked: 40 Substance Use Type: Crack/Cocaine, Former Substance User, Heroin, Marijuana and Prescription Drugs Advance Directives Date on File: 07/05/20 service: No Current occupational status: unemployed Assessment & Plan Assessment & Plan (1) Diabetic nephropathy associated with type 2 diabetes mellitus: Code(s): E11.21 - Type 2 diabetes mellitus with diabetic nephropathy Plan: Patient presents for pump training for T-Slim pump and Dexcom G6. The following topics were reviewed today: -T-Connect sugar on smart phone Tandem Login info: User name: [email or web address] Password: [email or web address] Patient's average glucose for the past 14 days 272 mg/dL Patient above target 78% Patient at target 22% Patient below target 0% Patient has resumed disconnecting his pump at night while sleeping. Patient reports he finds it uncomfortable to sleep with the pump. He continues to have hyperglycemia during the day as he is going overnight without insulin. Patient reports he is on Ozempic 0.5 mg, he uses Humulin U 500 in T slim insulin pump Discussed with patient if you would be willing to try wearing a belt to hold pump in place while sleeping. Patient does not have access to [employer] or other wireLawyerping. I will send message to [employer] to see if there is a place where patient can go to buy an insulin pump belt Patient is bolusing for meals See adjustments to insulin pump settings below Also discussed with patient the importance of bolusing 30 minutes prior to meals, as U 500 has a longer action time and needs more time to start working in his body Recommended he has note in his kitchen or on his refrigerator to remind him to take his insulin when he is preparing his meal Patient has appointment with REGISTERED NURSE HH CASE MANAGER on 10/22/2023, suggested the patient he discuss increasing Ozempic to 1 mg, and switching from Humulin U 500 to Humalog U 200 in insulin pump. Encouraged patient to try and wear insulin pump while sleeping, going without insulin overnight may be why he is having such high glucose levels during the day DME-Reliable Diabetes Troubleshooting after starting new pod or inserting new insulin set: Occlusion, adhesive tape sensitivity, redness Check BG 2 hours after site change Safety information: Patient understands the basic concepts of pump therapy, how to give insulin for meals and snacks, how to troubleshoot for hyper and hypoglycemia. Setting verified by CDCES, see changes to settings below: Basal rate(s) (units/hour) : 12 AM to 9 AM? 0.4 units / hr 9 AM to 6 PM? 2.25 units / hr 6 PM to 12 AM 0.8 units / hr Bolus setting Insulin Carbohydrate Ratio (s) 12 AM? to 12 AM 1:26 New 12 AM? to 12 AM 1:25 Correction Factor / Sensitivity Factor 12 AM? to 12 AM 1:70 New 12 AM? to 12 AM 1:65 Active Insulin Time:? 5 hours Target(s): 12 AM? to 12 AM? 110-110 Patient Instructions: Patient will follow-up with personal development educator in 1 month Coding Level of Care Code Est Pt Level 1 (77979) Diagnoses Diabetic nephropathy associated with type 2 diabetes mellitus E11.21
== END 2023-10-22 14:34 | disposition home or self-care (01) ==
PROVIDERS: PCP Internal Medicine; Visit Provider Registered Nurse Diabetes Educator
DX: E11.21 Type 2 diabetes mellitus with diabetic nephropathy (principal)

== ENCOUNTER 2023-10-23 13:02 | Outpatient (AMB) | payer OTHER, SELFPAY ==
--- NOTE | 2023-10-23 13:08 | A.OFFVIS_ITS ---
Vital Signs 10/23/23 13:10 Height 5 ft 11 in Weight 328 lb 7.82 oz BMI 45.8 BP 124/76 Blood Pressure Location Rt brachial Position Sitting Pulse 90 Pulse Source Pulse Oximeter Intake Visit Reasons: T2DM/UNABLE TO LVM Intake Note: Patient presents today to re-establish treatment on Type 2 Diabetes Mellitus: Last Diabetic Eye exam: 05/2023 Last Podiatry Exam: Does not see a Anode Worker Most recent HbA1c: 11.0%, 10/23/2023 Random Glucose- 328 mg/dL, Today Band Aid Machine Operator Required: Yes Band Aid Machine Operator Language: Concrete Worker Services: Band Aid Machine Operator Present Band Aid Machine Operator Name: MAMTA Erwin/SHAKEEL PURI Information Interpreted: non-clinical & clinical Accompanied by: Self / Same As Patient Allergies lisinopril Adverse Reaction (Intermediate, Verified 10/23/23 13:12) cough HPI Comments Details: Patient is 63 year old male with DM type 2 diagnosed who presents for continued management of diabetes. He was last seen by the ethanol maintenance mechanic earlier this week and by Dr. Encarnacion in July. He has poorly controlled an A1c earlier this month was 11%. Past medical history: DM2, CHF, cardiomyopathy, heroin abuse, hepatitis C, hypertension, hyperlipidemia, sleep apnea on BiPAP, defibrillator Micro and macrovascular complications: nephropathy and neuropathy, PAD Diabetes medications: ? He is on a Tandem pump with control IQ He has been taking the pump off at night because he has fears of dropping low. He did wear the pump last night it did drop to 60 in the middle of the night and felt symptomatic. He also complained early this week with difficulties wearing the pump at night and Shannan TORO recommended he obtain a pump belt to assist with this. Dexcom average glucose: [271] 14 day period reviewed Glucose Managment indicator 9.8 % TIme in range: Fifty-six % very high (above 250) 22 % high ?(181-250) 22 % in range ?(70-180] 0 % low (69-55) 0 % ?very low (below 54) [ 94%] % TIme CGM Active Details [having drops at 03:00am then rises substantially after breakfast and stays elevated throughout the day ] Basal rate(s) (units/hour) : 12 AM to 9 AM? 0.4 units / hr 9 AM to 6 PM? 2.25 units / hr 6 PM to 12 AM 0.8 units / hr Bolus setting Insulin Carbohydrate Ratio (s) 12 AM? to 12 AM 1:26 NEW 1:22 Correction Factor / Sensitivity Factor 12 AM? to 12 AM 1:65 Active Insulin Time:? 5 hours Target(s): 12 AM? to 9 AM?130 9AM 110 He reports eating 160 carbs per meal. His appetite is less since on higher dose of Ozempic but he had not decreased the amount of food he is eating. Hypoglycemia: experiencing hypoglycemia daily 3am Exercise: limited Acrylic Fabricator - CDE education: Has seen Shannan Myers CDE multiple times this year Ophthalmology evaluation: saw optho 05/2023 He doses not see a licensing and registration director walks barefooted in house Other specialists: inside sales director, He is on a statin and an ARB. Last LDL 100 09/29 eGFR >60 microalbumin 99 09/29 PFSH Medical History Tubular adenoma Vitamin D deficiency Hypoxia Paroxysmal atrial fibrillation Biventricular ICD (implantable cardioverter-defibrillator) in place Chest pain Congestive heart failure (CHF) Dyslipidemia Morbid obesity Diabetic neuropathy associated with type 2 diabetes mellitus emt intermediate (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 Social History Household Members: Friend(s) and Other Household Members Other:: sober living home Housing: House Housing Other:: sober house-rents room Are you a primary child care sitter to a significant other at home: No Do you presently have visiting nurse or other home services: Yes (CENTRAL SUPPLY TECHNICIAN SUPERVISOR 3x week) Alcohol intake: former Patient Tobacco Use Status: Former Tobacco user Tobacco use type: Cigarette Years Smoked: 40 Substance Use Type: Crack/Cocaine, Former Substance User, Heroin, Marijuana and Prescription Drugs Advance Directives Date on File: 07/05/20 service: No Current occupational status: unemployed Physical Exam Vital Signs: Last Vital Signs Pulse 90 10/23/23 13:10 BP 124/76 10/23/23 13:10 BMI result Body Mass Index 45.8 Const Other: Absence of Cushingoid features. Absence of acromegalic features. Skin exam reveals absence of vitiligo or acanthosis nigricans. Skin brawny lower extremeties Extrem Other: Visual exam of foot performed. No ulcerations or open lesions. No onchomycosis, no callouses. Sensation diminished to monofilament exam. No interdigit maceration or fissuring. Office Procedures Glucose Monitoring Details 26494 - Glucose monitoring, continuous-physician I&R Procedure code (CPT) selection complete Results AMB Hemoglobin A1c AMB Hemoglobin A1c 11.0 % Last Edit by MAMTA Erwin on 10/23/23 13:4 7 Results Reviewed Results Reviewed: Laboratory Last Values Glucose (Clinic) 328 mg/dL (60-115) H 10/23/23 13:14 Hgb A1c (Clinic) 11.0 % (4.0-6.0) H 10/23/23 13:46 Laboratory Tests 03/03/23 03/26/23 03/26/23 14:20 10:44 14:01 Plt Count 244 D Potassium Creatinine Estimated GFR Glucose (Clinic) 353 H* Hgb A1c (Clinic) 9.9 H Uric Acid Triglycerides Cholesterol LDL Cholesterol, Calc HDL Cholesterol Urine Creatinine Urine Microalbumin Microalb/Creat Ratio 06/16/23 07/23/23 10/05/23 14:33 09:58 10:55 Plt Count Potassium 5.0 Creatinine 0.94 Estimated GFR > 60 Glucose (Clinic) Hgb A1c (Clinic) 10.3 H Uric Acid 9.3 H Triglycerides 100 Cholesterol 161 LDL Cholesterol, Calc 100 H HDL Cholesterol 41 Urine Creatinine 54.04 Urine Microalbumin 48.0 Microalb/Creat Ratio 88.8 H Assessment & Plan Assessment & Plan (1) Diabetes type 2, uncontrolled: Code(s): E11.65 - Type 2 diabetes mellitus with hyperglycemia Category: Medical Qualifiers: Glycemic state: with hyperglycemia Qualified Code(s): E11.65 - Type 2 diabetes mellitus with hyperglycemia Plan: Type 2 diabetes with poor control on U 500 insulin pump along with Ozempic 2 mg weekly and Jardiance 10 mg. His most recent A1c was 11% in the office today. He had reported to Shannan TORO that he was taking the pump off overnight because he was uncomfortable wearing it and was also having some lows. He has validated these lows with a fingerstick sugar and has been symptomatic. Today adjusted his pump to a lower target at night of 130 and his insulin to carb ratio was adjusted to give him more pre meal insulin. He was encouraged to stay in control IQ 100% of the time into where the pump overnight. He is currently eating an excessive amount of carbs proximally 160 per meal. He was asked to lowers carb intake by 1/3 which he is willing to do. He will return in a few weeks to review his pump download again. Orders: Orders AMB Hemoglobin A1c Today E11.21 - Type 2 diabetes mellitus with diabetic nep hropathy AMB Glucose Monitoring Today E11.65 - Type 2 diabetes mellitus with hyperglycemia Medications: New insulin regular hum U-500 conc (Humulin R U-500 (Concentrated) Insulin) up to 400 units daily via insulin pump subcutaneously every morning; 20 mL 6RF MDD 400 units E11.21 - Type 2 diabetes mellitus with diabetic nephropathy Discontinued insulin regular hum U-500 conc (Humulin R U-500 (Concentrated) Insulin) Discontinued Reason: Doctor's Order Inject 135 units before breakfast and 40 units before dinner subcutaneously 2 times a day; 20 mL 3RF E11.65 - Type 2 diabetes mellitus with hyperglycemia Coding Level of Care Code Est Pt Level 5 (91369) Complex EM visit Add On G2211 Diagnoses Diabetes type 2, uncontrolled E11.65 Glycemic state: with hyperglycemia CPT Codes Details - CPT: 92033 - Glucose monitoring, continuous-physician I&R ([id number]) Time Spent (min) 60 Comment Time spent reviewing labs/provider notes, sensor/pump reports, face to face, chart doc
[2023-10-23 13:10] VITALS: BP 124/76; PULSE 90; BMI 45.8
[2023-10-23 13:20] LABS: Glucose, Whole Blood 328 mg/dL (60-115)
== END 2023-10-23 13:41 | disposition home or self-care (01) ==
PROVIDERS: PCP Internal Medicine; Visit Provider Nurse Practitioner Adult Health
DX: E11.21 Type 2 diabetes mellitus with diabetic nephropathy (principal); E11.65 Type 2 diabetes mellitus with hyperglycemia
CPT/HCPCS: 95251; 99215; G2211

== ENCOUNTER → 2023-10-23 13:02 | Outpatient (BNVA) | payer OTHER, SELFPAY | PROVIDERS: PCP Internal Medicine; Visit Provider Nurse Practitioner Adult Health | DX: E11.65 Type 2 diabetes mellitus with hyperglycemia (principal); E11.21 Type 2 diabetes mellitus with diabetic nephropathy; E11.40 Type 2 diabetes mellitus with diabetic neuropathy, unspecified; E11.51 Type 2 diabetes mellitus with diabetic peripheral angiopathy without gangrene; Z96.41 Presence of insulin pump (external) (internal); Z79.4 Long term (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 of insulin | CPT/HCPCS: 82947; 83036; 99212 ==

== ENCOUNTER 2023-11-06 12:23 | Outpatient (AMB) | payer OTHER, SELFPAY ==
--- NOTE | 2023-11-06 12:31 | A.OFFVIS_ITS ---
Vital Signs 11/06/23 12:33 Height 5 ft 11 in Weight 319 lb 10.724 oz BMI 44.6 BP 118/68 Blood Pressure Location Rt brachial Position Sitting Pulse 95 Pulse Source Pulse Oximeter Intake Visit Reasons: T2DM/CONFIRMED Intake Note: Patient presents today for a follow-up on Type 2 Diabetes Mellitus: Last Diabetic Eye exam: 05/2023 Last Podiatry Exam: Does not see a Children'S Nursery Assistant Most recent HbA1c: 11.0%, 10/23/2023 Random Glucose- 509 mg/dL, Today 12:36 PM, RE-CHECKED 469 mg/dL 1:30 PM Strickler Attendant Required: Yes Strickler Attendant Language: German Accompanied by: Self / Same As Patient Allergies lisinopril Adverse Reaction (Intermediate, Verified 10/23/23 13:12) cough HPI Comments Details: Patient is 63 year old male with DM type 2 diagnosed who presents for continued management of diabetes. He was last seen by the poultry breeder and myself 2 weeks ago and by Dr. Encarnacion in July. He has poorly controlled an A1c earlier this month was 11%. Past medical history: DM2, CHF, cardiomyopathy, heroin abuse, hepatitis C, hypertension, hyperlipidemia, sleep apnea on BiPAP, defibrillator Micro and macrovascular complications: nephropathy and neuropathy, PAD Diabetes medications: ? He is on a Tandem pump with control IQ Ozempic 2mg weekly Jardiance 10 mg daily He has been taking the pump off at night because he has fears of dropping low, it causes pain if he lays on it or it falls off. At his last visit he was advised that he needed to wear the pump 29/09. Last night he took the pump off and his glucose on arrival to the ENDO clinic was over 500 for which he gave himself 6 units (converts to 30 units of u500) after hearing his sugar was elevated. Glucose dropped to 469 and he was given several glasses of water for hydration. Negative for ketones, He has changed his set several times over the past few days. He reports when he was on injections in the past he took 110-120 units with lower dose later in the day. He denies symptoms of infection. No urinary symptoms. No open wounds. Dexcom average glucose: [273] 14 day period reviewed Glucose Managment indicator 9.8 % TIme in range: 55% very high (above 250) 21% high ?(181-250) 24 % in range ?(70-180] 0 % low (69-55) 0 % ?very low (below 54) [ 94%] % TIme CGM Active Basal rate(s) (units/hour) : 12 AM to 9 AM? 0.4 units / hr 9 AM to 6 PM? 2.25 units / hr 6 PM to 12 AM 0.8 units / hr Bolus setting Insulin Carbohydrate Ratio (s) 12 AM? to 12 AM 1:22 Correction Factor / Sensitivity Factor 12 AM? 70 9AM 65 6 PM 65 Active Insulin Time:? 5 hours Target(s): 12 AM? to 9 AM?130 9AM 110 71 % basal 56 units u500 (280 units converted) 29% bolus 23.2 units u500 (116 units converted) Hypoglycemia: none recent it he is going to be there for a while Exercise: limited Talend Developer - CDE education: Has seen Shannan Myers CDE multiple times this year Ophthalmology evaluation: saw optho 05/2023 He doses not see a 1st grade teacher walks barefooted in house Other specialists: sole scraper, He is on a statin and an ARB. Last LDL 100 7 eGFR >60 microalbumin 99 7/ [facility] Medical History Tubular adenoma Vitamin D deficiency Hypoxia Paroxysmal atrial fibrillation Biventricular ICD (implantable cardioverter-defibrillator) in place Chest pain Congestive heart failure (CHF) Dyslipidemia Morbid obesity Diabetic neuropathy associated with type 2 diabetes mellitus [facility] (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 Social History Household Members: Friend(s) and Other Household Members Other:: sober living home Housing: House Housing Other:: sober house-rents room Are you a primary home health aide caregiver to a significant other at home: No Do you presently have visiting nurse or other home services: Yes (ALL SOURCE INTELLIGENCE 3x week) Alcohol intake: former Patient Tobacco Use Status: Former Tobacco user Tobacco use type: Cigarette Years Smoked: 40 Substance Use Type: Crack/Cocaine, Former Substance User, Heroin, Marijuana and Prescription Drugs Advance Directives Date on File: 07/05/20 service: No Current occupational status: unemployed Physical Exam Vital Signs: Last Vital Signs Pulse 95 11/06/23 12:33 BP 118/68 11/06/23 12:33 BMI result Body Mass Index 44.6 Const Other: Absence of Cushingoid features. Absence of acromegalic features. Neck exam reveals nl size thyroid about 15 gms. No thyroid nodules palpable. . Lungs CTA. Heart S1 S2, Reg R/R. No M/R G. Skin exam reveals absence of vitiligo or acanthosis nigricans. Shins brawny. Trace edema Extrem Other: Visual exam of foot performed. No ulcerations or open lesions. nails trimmed + onchomycosis on nail bed, skin dry,, no callouses. Results UR Ketone Dip UR Ketone Dip Negative Last Edit by MAMTA Erwin on 11/06/23 12:57 Results Reviewed Results Reviewed: Laboratory Last Values Glucose (Clinic) 469 mg/dL (60-115) H* 11/06/23 13:30 Ur Ketones (Stick) Negative 11/06/23 12:54 Assessment & Plan Assessment & Plan (1) Diabetes type 2, uncontrolled: Code(s): E11.65 - Type 2 diabetes mellitus with hyperglycemia Category: Medical Qualifiers: Glycemic state: with hyperglycemia Qualified Code(s): E11.65 - Type 2 diabetes mellitus with hyperglycemia Plan: Type 2 diabetic with poor control on insulin pump secondary to taking off nightly. Despite counseling to keep pump on at night he continues to do so and was advised to discontinue pump therapy. He was asked to start taking U500 110 units for breakfast mid day meal and 65 later in the evening with food. He was asked to stay in clinic until his sugars dropped lower but he declined to do so despite our medical advice. Orders: Orders AMB Ketone Urine Dipstick Today E11.65 - Type 2 diabetes mellitus with hyperglycemia Medications: New Humulin R U-500 (Conc) Insulin (insulin regular hum U-500 conc) 110 units before breakfast and lunch, 65 units before supper subcutaneously 30 days 2 0 mL 6RF NS E11.65 - Type 2 diabetes mellitus with hyperglycemia Changed From BD Insulin Syringe U-500 (insulin U-500 syringe-needle) Twice a day 180 ea 3RF NS E11.65 - Type 2 diabetes mellitus with hyperglycemia To BD Insulin Syringe U-500 (insulin U-500 syringe-needle) tid 300 ea 3RF NS E1 1.65 - Type 2 diabetes mellitus with hyperglycemia Discontinued insulin regular hum U-500 conc (Humulin R U-500 (Concentrated) Insulin) Discontinued Reason: Doctor's Order up to 400 units daily via insulin pump subcutaneously every morning; 20 mL 6RF MDD 400 units E11.21 - Type 2 diabetes mellitus with diabetic nephropathy Patient Instructions: The patient was counseled to achieve a target A1C of 7% (154 avg). Fasting blood sugars should be 90-130 in the morning and less than 180 two hours after meals. Reviewed the relationship between poor diabetic control and the developement of complications DKA Coding Level of Care Code Est Pt Level 4 (83162) Complex EM visit Add On G2211 Diagnoses Diabetes type 2, uncontrolled E11.65 Glycemic state: with hyperglycemia Time Spent (min) 30 Comment Time spent reviewing labs/provider notes, glucose,sensor reports, face to face, chart doc
[2023-11-06 12:33] VITALS: BP 118/68; PULSE 95; BMI 44.6
[2023-11-06 12:44] LABS: Glucose, Whole Blood 509 mg/dL (60-115)
[2023-11-06 13:33] LABS: Glucose, Whole Blood 469 mg/dL (60-115)
== END 2023-11-06 14:04 | disposition home or self-care (01) ==
PROVIDERS: PCP Internal Medicine; Visit Provider Nurse Practitioner Adult Health
DX: E11.65 Type 2 diabetes mellitus with hyperglycemia (principal)
CPT/HCPCS: 99214; G2211

== ENCOUNTER → 2023-11-06 12:23 | Outpatient (BNVA) | payer OTHER, SELFPAY | PROVIDERS: PCP Internal Medicine; Visit Provider Nurse Practitioner Adult Health | DX: E11.65 Type 2 diabetes mellitus with hyperglycemia (principal); E11.21 Type 2 diabetes mellitus with diabetic nephropathy; Z46.81 Encounter for fitting and adjustment of insulin pump | CPT/HCPCS: 81002; 82947; 99212 ==

== ENCOUNTER → 2023-11-17 23:59 | Outpatient (BNV) | payer OTHER, SELFPAY ==
--- NOTE | 2023-12-04 18:28 | MHC.OFFVIS ---
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 Social History Household Members: Friend(s) and Other Household Members Other:: sober living home Housing: House Housing Other:: sober house-rents room Are you a primary director long term care to a significant other at home: No Do you presently have visiting nurse or other home services: Yes ([employer]ETING [employer] 3x week) Alcohol intake: former Patient Tobacco Use Status: Former Tobacco user Tobacco use type: Cigarette Years Smoked: 40 Substance Use Type: Crack/Cocaine, Former Substance User, Heroin, Marijuana and Prescription Drugs Advance Directives Date on File: 07/05/20 service: No Current occupational status: unemployed Assessment & Plan Assessment & Plan (1) Biventricular ICD (implantable cardioverter-defibrillator) in place: Comment: Medtronic, implanted 06/28/20 Code(s): Z95.810 - Presence of automatic (implantable) cardiac defibrillator Category: Medical Plan: Coding Level of Care Code Procedure Only Diagnoses Biventricular ICD (implantable cardioverter-defibrillator) in place Z95.810
== END ==
PROVIDERS: PCP Internal Medicine; Visit Provider Internal Medicine Cardiovascular Disease
DX: I50.9 Heart failure, unspecified (principal); Z95.810 Presence of automatic (implantable) cardiac defibrillator
CPT/HCPCS: 93297

== ENCOUNTER 2023-11-20 13:28 | Outpatient (AMB) | payer OTHER, SELFPAY ==
--- NOTE | 2023-11-20 10:38 | MHC.OFFVIS ---
Vital Signs 11/20/23 13:33 Height 5 ft 11 in Weight 328 lb 7.82 oz BMI 45.8 BP 128/78 Blood Pressure Location Rt brachial Position Sitting Pulse 75 Pulse Source Pulse Oximeter Intake Visit Reasons: DM/VM NOT SET UP Intake Note: Patient presents today for a follow-up on Type 2 Diabetes Mellitus: Last Diabetic Eye exam: 05/2023 Last Podiatry Exam: Does not see a Malted Milk Supervisor Most recent HbA1c: 11.0%, 10/23/2023 Random Glucose- 153mg/dL, Today Search Marketing Specialist Required: Yes Search Marketing Specialist Language: Steel Fixer Services: Search Marketing Specialist Offered & Declined Accompanied by: Self / Same As Patient Allergies lisinopril Adverse Reaction (Intermediate, Verified 11/20/23 13:43) cough HPI Comments Details: Patient is a 63 year old male with DM type 2 diagnosed who presents for continued management of diabetes. He was last seen by the cosmetology educator and myself 2 weeks ago. He has poorly controlled diabetes, A1C on 10/23/23 was 11%. His A1C has progressively increased since September 2022 from 8.1%. This A1c was prior to going on the pump and at which time he was taking 120 units of U 500 in the morning and 40 for the dinner meal. He has not done well on an insulin pump and had difficulty wearing it at nighttime and was persistently taking off the pump each night. And last visit several weeks ago he was advised to discontinue the tandem pump.He has had one low to the 60's since coming off the pump. Micro and macrovascular complications: nephropathy and neuropathy, PAD chf, cardiomyopathy He has sleep apnea on BiPAP, has defibrillator He is due for cardiology follow up Diabetes medications: ?Now off pump Humulin U 500 A.m. 100-120 units with breakfast (if glucose is near normal he will reduce this to 60 units to prevent lows) Supper time at 7pm 40-50 units Ozempic 2mg weekly Jardiance 10 mg daily Dexcom average glucose: [200 ] 14 day continuous glucose monitor report reviewed Glucose Managment indicator [8.1 ] % Days with CGM data 90% active] TIme in ranges: [23 ] % very high (above 250) 33 % high ?(181-250) 43 % in range ?(70-180] 0.7 % low (69-55) 0.4 % ?very low (below 54) [ 73] Standard Deviation Interpretation [readings relatively flat throughout the day with some increase between 10 and fpm ] Exercise: limited Collection Supervisor - CDE education: Has seen Shannan Mariondavid CDE multiple times this year Ophthalmology evaluation: saw optho 05/2023 He has a podiatry appointment scheduled +neuropathy Other specialists: fatback trimmer, He is on a statin and an ARB. Last LDL 100 09/29 eGFR >60 microalbumin 99 7 PFSH Medical History Tubular adenoma Vitamin D deficiency Hypoxia Paroxysmal atrial fibrillation Biventricular ICD (implantable cardioverter-defibrillator) in place Chest pain Congestive heart failure (CHF) Dyslipidemia Morbid obesity Diabetic neuropathy associated with type 2 diabetes mellitus long term acute care registered nurse (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 Social History Household Members: Friend(s) and Other Household Members Other:: sober living home Housing: House Housing Other:: sober house-rents room Are you a primary customer care coordinator to a significant other at home: No Do you presently have visiting nurse or other home services: Yes (GUM MACHINE OPERATOR 3x week) Alcohol intake: former Patient Tobacco Use Status: Former Tobacco user Tobacco use type: Cigarette Years Smoked: 40 Substance Use Type: Crack/Cocaine, Former Substance User, Heroin, Marijuana and Prescription Drugs Advance Directives Date on File: 07/05/20 service: No Current occupational status: unemployed Physical Exam Vital Signs: Last Vital Signs Pulse 75 11/20/23 13:33 BP 128/78 11/20/23 13:33 BMI result Body Mass Index 45.8 Const Other: Absence of Cushingoid features. Absence of acromegalic features. Neck exam reveals nl size thyroid about 15 gms. No thyroid nodules palpable. No carotid bruits present. Lungs CTA. Heart S1 S2, Reg R/R. No M/R G. Skin exam reveals absence of vitiligo or acanthosis nigricans. mild edema, skin lower extremeties brawny Extrem Other: deferred as upcoming podiatry appt Office Procedures Glucose Monitoring Details Details: see [facility] [id number] - Glucose monitoring, continuous-physician I&R Procedure code (CPT) selection complete Results Reviewed Results Reviewed: Laboratory Last Values Glucose (Clinic) 153 mg/dL (60-115) H 11/20/23 13:36 Laboratory Tests 03/26/23 06/16/23 07/23/23 14:01 14:33 09:58 Potassium 5.0 Creatinine 0.94 Estimated GFR > 60 Hgb A1c (Clinic) 9.9 H 10.3 H Uric Acid Triglycerides Cholesterol LDL Cholesterol, Calc HDL Cholesterol Urine Creatinine Urine Microalbumin Microalb/Creat Ratio 10/05/23 10:55 Potassium Creatinine Estimated GFR Hgb A1c (Clinic) Uric Acid 9.3 H Triglycerides 100 Cholesterol 161 LDL Cholesterol, Calc 100 H HDL Cholesterol 41 Urine Creatinine 54.04 Urine Microalbumin 48.0 Microalb/Creat Ratio 88.8 H Assessment & Plan Assessment & Plan (1) Diabetic neuropathy associated with type 2 diabetes mellitus: Code(s): E11.40 - Type 2 diabetes mellitus with diabetic neuropathy, unspecified Category: Medical Plan: Type 2 diabetic with sleep apnea, multiple cardiac comorbidities, nephropathy and neuropathy with worsening A1c. Because of his unwillingness to wear the insulin pump at night it was recommended that he discontinue this at his last visit in October. He has agreed to this and has been off the pump. His sugar average has improved and is at 200. He will continue his current dosing of U 500, Jardiance and Ozempic and he will see the cosmetology educator later this month and myself in 2 months. I do not believe a 7% A1c target is reasonable with this patient given the risk of severe hypoglycemia on U 500 in his multiple cardiac comorbidities. A reasonable target would be an A1c of 8% with the 180 average. He has requested that he be changed to a freestyle Home as he is having difficulty wearing the Dexcom in his abdomen due to discomfort. I have printed 2 prescriptions and we will request the staff to send this to a DME. He was advised to contact his fatback trimmer as he is due for follow-up and has an appointment to see Podiatry. Orders: Orders Microalbumin, Random (w Creat) Today E11.21 - Type 2 diabetes mellitus with diabetic nephropathy, E11.65 - Type 2 diabetes mellitus with hyperglycemia Creatinine Urine Today E11.21 - Type 2 diabetes mellitus with diabetic nephropathy, E11.65 - Type 2 diabetes mellitus with hyperglycemia Basic Metabolic Panel Today E11.21 - Type 2 diabetes mellitus with diabetic nephropathy, E11.65 - Type 2 diabetes mellitus with hyperglycemia Lipid Panel 6 Months E11.21 - Type 2 diabetes mellitus with diabetic nephropathy, E11.65 - Type 2 diabetes mellitus with hyperglycemia Thyroid Stimulating Hormone Today E11.21 - Type 2 diabetes mellitus with diabetic nephropathy, E11.65 - Type 2 diabetes mellitus with hyperglycemia AMB Glucose Monitoring Today E11.65 - Type 2 diabetes mellitus with hyperglycemia Medications: New blood-glucose sensor (FreeStyle Home 3 Plus Sensor device) As directed 2 ea 11RF E11.65 - Type 2 diabetes mellitus with hyperglycemia FreeStyle Home 3 [place] (blood-glucose meter,continuous) As directed 1 ea 0RF NS E11.65 - Type 2 diabetes mellitus with hyperglycemia Changed From Humulin R U-500 (Conc) Insulin (insulin regular hum U-500 conc) 110 units before breakfast and lunch, 65 units before supper subcutaneously 30 days 20 mL 6RF NS E11.65 - Type 2 diabetes mellitus with hyperglycemia To Humulin R U-500 (Conc) Insulin (insulin regular hum U-500 conc) 100-120 units before breakfast 40-50 units before supper subcutaneously 30 days 20 mL 6RF NS E11.65 - Type 2 diabetes mellitus with hyperglycemia Discontinued flash glucose scanning reader (FreeStyle Home 2 [place]) Discontinued Reason: Doctor's Order As directed 1 ea 0RF flash glucose sensor (FreeStyle Home 2 Sensor kit) Discontinued Reason: Doctor's Order DIRECTED EVERY 2 WEEKS 2 ea 4RF Patient Instructions: The patient was counseled to achieve a target A1C of 7% (154 avg). Fasting blood sugars should be 90-130 in the morning and less than 180 two hours after meals. Reviewed the relationship between poor diabetic control and the developement of complications Low glucose treatment Coding Level of Care Code Est Pt Level 4 (07345) Complex EM visit Add On G2211 Diagnoses Diabetic neuropathy associated with type 2 diabetes mellitus E11.40 CPT Codes Details - CPT: 22405 - Glucose monitoring, continuous-physician I&R ([id number]) Time Spent (min) 35 Comment Time spent reviewing labs/provider notes, glucose,sensor reports, face to face, chart doc
[2023-11-20 13:33] VITALS: BP 128/78; PULSE 75; BMI 45.8
[2023-11-20 13:45] LABS: Glucose, Whole Blood 153 mg/dL (60-115)
== END 2023-11-20 14:02 | disposition home or self-care (01) ==
PROVIDERS: PCP Internal Medicine; Visit Provider Nurse Practitioner Adult Health
DX: E11.40 Type 2 diabetes mellitus with diabetic neuropathy, unspecified (principal)
CPT/HCPCS: 95251; 99214; G2211

== ENCOUNTER → 2023-11-20 13:28 | Outpatient (BNVA) | payer OTHER, SELFPAY | PROVIDERS: PCP Internal Medicine; Visit Provider Nurse Practitioner Adult Health | DX: E11.40 Type 2 diabetes mellitus with diabetic neuropathy, unspecified (principal); E11.21 Type 2 diabetes mellitus with diabetic nephropathy; E11.65 Type 2 diabetes mellitus with hyperglycemia; Z79.4 Long term (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 of insulin | CPT/HCPCS: 82947; 99212 ==

== ENCOUNTER 2023-11-23 13:58 | Outpatient (AMB) | payer OTHER, SELFPAY ==
--- NOTE | 2023-11-23 14:35 | MHC.AMDMED ---
Intake Intake Visit Reasons: 60 Min/CONFIRMED Customer Support Analyst Required: Yes Customer Support Analyst Language: Ground Crew Linesman Name: Alberto [facility] Accompanied by: Self / Same As Patient Allergies lisinopril Adverse Reaction (Intermediate, Verified 11/20/23 13:43) cough HPI Comprehensive Diabetes Asmnt Most Recent Diabetes Results: No Data to Display [facility] Medical History Tubular adenoma Vitamin D deficiency Hypoxia Paroxysmal atrial fibrillation Biventricular ICD (implantable cardioverter-defibrillator) in place Chest pain Congestive heart failure (CHF) Dyslipidemia Morbid obesity Diabetic neuropathy associated with type 2 diabetes mellitus terminal 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 Social History Household Members: Friend(s) and Other Household Members Other:: sober living home Housing: House Housing Other:: sober house-rents room Are you a primary direct support professional caregiver to a significant other at home: No Do you presently have visiting nurse or other home services: Yes (CLUB ATTENDANT 3x week) Alcohol intake: former Patient Tobacco Use Status: Former Tobacco user Tobacco use type: Cigarette Years Smoked: 40 Substance Use Type: Crack/Cocaine, Former Substance User, Heroin, Marijuana and Prescription Drugs Advance Directives Date on File: 07/05/20 service: No Current occupational status: unemployed Assessment & Plan Assessment & Plan (1) Diabetic neuropathy associated with type 2 diabetes mellitus: Code(s): E11.40 - Type 2 diabetes mellitus with diabetic neuropathy, unspecified Plan: Personal Continuous Glucose Monitor: Patients CGM information reviewed Reviewed patient's sensor data: Hypoglycemia: ? 0.7% Hyperglycemia:? 55% Time in Range:? 44% Average glucose for the last 2 weeks? 194 mg/dL Patient reports he is now off pump, although he has not been able to shut pump down in his been putting water in the cartridge and kept the pump running so he can see his glucose numbers. Patient did not bring cellphone to today's visit so we were unable to set up CGM apps, gave patient names of both Dex[employer]antis Systems G6s sugar and GREE sugar Instructed patient he needs to contact [facility] and let them know that he no longer needs the deliveries of his pump support Patient reports he is taking Humulin U 500- 100-120 units in the morning, 40-50 units in the evening Patient has not overnight episodes of hypoglycemia, reviewed with patient how to treat hypoglycemia with rule of 15s In addition instructed patient how to turn off T slim insulin pump after he connects CGM to telephone sugar Patient able to insert sensor independently at home without issue.? Portions of this note were created using voice recognition software, please excuse any words or phrases that may have been misinterpreted. Patient Instructions: Patient will call for next appointment with multi craft maintenance technician Coding Level of Care Code Est Pt Level 1 (66187) Diagnoses Diabetic neuropathy associated with type 2 diabetes mellitus E11.40
== END 2023-11-23 14:48 | disposition home or self-care (01) ==
PROVIDERS: PCP Internal Medicine; Visit Provider Registered Nurse Diabetes Educator
DX: E11.40 Type 2 diabetes mellitus with diabetic neuropathy, unspecified (principal)

== ENCOUNTER → 2023-11-23 13:58 | Outpatient (BNVA) | payer OTHER, SELFPAY | PROVIDERS: PCP Internal Medicine; Visit Provider Registered Nurse Diabetes Educator | DX: E11.65 Type 2 diabetes mellitus with hyperglycemia (principal); E11.40 Type 2 diabetes mellitus with diabetic neuropathy, unspecified; Z79.4 Long term (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 of insulin | CPT/HCPCS: 99211 ==

== ENCOUNTER 2023-11-26 12:32 | Outpatient (AMB) | payer OTHER, SELFPAY ==
--- NOTE | 2023-11-26 13:10 | MHC.AMDMED ---
Intake Intake Visit Reasons: Home help Accompanied by: Self / Same As Patient Allergies lisinopril Adverse Reaction (Intermediate, Verified 11/20/23 13:43) cough HPI Comprehensive Diabetes Asmnt Most Recent Diabetes Results: No Data to Display [facility] Medical History Tubular adenoma Vitamin D deficiency Hypoxia Paroxysmal atrial fibrillation Biventricular ICD (implantable cardioverter-defibrillator) in place Chest pain Congestive heart failure (CHF) Dyslipidemia Morbid obesity Diabetic neuropathy associated with type 2 diabetes mellitus care home (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 Social History Household Members: Friend(s) and Other Household Members Other:: sober living home Housing: House Housing Other:: sober house-rents room Are you a primary lawn care professional to a significant other at home: No Do you presently have visiting nurse or other home services: Yes (SOLAR PHOTOVOLTAIC ELECTRICIAN 3x week) Alcohol intake: former Patient Tobacco Use Status: Former Tobacco user Tobacco use type: Cigarette Years Smoked: 40 Substance Use Type: Crack/Cocaine, Former Substance User, Heroin, Marijuana and Prescription Drugs Advance Directives Date on File: 07/05/20 service: No Current occupational status: unemployed Assessment & Plan Assessment & Plan (1) Diabetic nephropathy associated with type 2 diabetes mellitus: Code(s): E11.21 - Type 2 diabetes mellitus with diabetic nephropathy Plan: Patient at visit to set up an insert Home 3 Patient brought cellphone, unable to set up apps on patient's cellphone because it had no more memory available, to receive e-mail for Dexcom G6 sugar set up Patient has been unable to pickling tank operator Home 3 sensors, at today's visit patient given Dexcom G7 reader Instructed patient sensors water proof you can shower, or swim do not submerge sensor in water for over 30 minutes Is sensor falls off cannot put back in you need to replace sensor, customer service number given to patient for sensor replacement Sensor placed on the left abdomen Patient left visit with sensor in warmup Shut down patient's T slim insulin pump, now that he has Dexcom G7 reader. Reviewed how to interpret trend arrows Reminded patient that to check finger sticks if symptoms do not match sensor reading. Discussed lag time between finger stick and sensor data.? Instructed patient she should always keep blood glucometer for backup testing if needed Reviewed delay of CGM from fingersticks Reminded pt that if symptoms do not match sensor still needs to check fingersticks. Portions of this note were created using voice recognition software, please excuse any words or phrases that may have been misinterpreted. Patient Instructions: Follow-up with Diabetes Education nurse in 1 month Coding Level of Care Code Est Pt Level 1 (56439) Diagnoses Diabetic nephropathy associated with type 2 diabetes mellitus E11.21
== END 2023-11-26 13:11 | disposition home or self-care (01) ==
PROVIDERS: PCP Internal Medicine; Visit Provider Registered Nurse Diabetes Educator
DX: E11.21 Type 2 diabetes mellitus with diabetic nephropathy (principal)

== ENCOUNTER → 2023-11-26 12:32 | Outpatient (BNVA) | payer OTHER, SELFPAY | PROVIDERS: PCP Internal Medicine; Visit Provider Registered Nurse Diabetes Educator | DX: E11.21 Type 2 diabetes mellitus with diabetic nephropathy (principal) | CPT/HCPCS: 99211 ==

== ENCOUNTER 2023-12-16 14:31 | Outpatient (AMB) | payer OTHER, SELFPAY ==
[2023-12-16 14:38] VITALS: BP 130/64; PULSE 82; BMI 46.1
--- NOTE | 2023-12-16 14:38 | MHC.OFFVIS ---
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 Required: No Accompanied by: Self / Same As Patient Allergies lisinopril Adverse Reaction (Intermediate, Verified 11/20/23 13:43) cough Medication List - Last Reconciled 12/16/23 by Lionel Paul MD albuterol sulfate 90 mcg/actuation 2 puffs inhalation Q4-6H PRN atorvastatin 40 mg PO DAILY BD Insulin Syringe U-500 (insulin U-500 syringe-needle) tid NS blood-glucose sensor (FreeStyle Home 3 Plus Sensor device) As directed colchicine mg PO Dexcom G7 Sensor (blood-glucose sensor) every 10 days NS empagliflozin (Jardiance) 10 mg PO DAILY fluticasone propionate 50 mcg/actuation 1 spray intranasal BID FreeStyle Home 3 [place] (blood-glucose meter,continuous) As directed NS gabapentin 800 mg PO TID Humulin R U-500 (Conc) Insulin (insulin regular hum U-500 conc) 100-120 units before breakfast 40-50 units before supper subcutaneously 30 days NS metoprolol succinate ER 100 mg PO DAILY omeprazole 40 mg PO DAILY rivaroxaban (Xarelto) 20 mg PO QPM sacubitril-valsartan 49-51 mg (Entresto) 1 tab PO BID 90 days semaglutide (Ozempic) 2 mg subcut torsemide 60 mg PO BID 90 days HPI Comments Details: 63-year-old gentleman here for follow up. He previously had nonischemic cardiomyopathy which was in the setting of cocaine and heroin abuse. He was found to have significant PVC burden of 40,000 PVCs in 24 hours and was put on amiodarone with improvement in ejection fraction to 50-55%. While on amiodarone he had some changes on pulmonary function testing with moderately reduced DLCO and we decided to stop the amiodarone. He previously had cardiac catheterization which did not show any coronary artery disease. In 2020 he was admitted at [facility] followed by [facility] for congestive heart failure. At [facility] was found to have difficult to control atrial flutter and his ejection fraction was severely reduced. Subsequently was admitted again at [facility] and it appears he had Bi V AICD placement. He had a device interrogation done and it showed rising thoracic impedance as well as runs of ventricular tachycardia which was nonsustained. He did not get any therapies from his device. His Bumex was changed to torsemide because he continued to gain weight while taking the diuretics. Since then he has been doing well. His device interrogation has shown that he is biventricular pacing more than 95% time now. Repeat echocardiography has shown normal left ventricular function. He returns for follow-up. He has been experiencing some shortness of breath. He also feels tired. He takes torsemide in the morning and at night around 9-10 o'clock. He is saying that he urinates all night and does not sleep well. He also has joint issues including back and right knee issues ongoing. 12/10/22: He is here for f/u. He was given metolazone by pul which helped diuresis but he developed hypokalemia and was in the ER. He is saying he has not been taking the metolazone since then. He has fatigue and dyspnea. He has been taking torsemide but misses it on some days. He is complaining of some left sided chest pains off and on. 09/02/2023: He is here for follow-up. He is on Ozempic but is complaining that he has not lost any weight. Taking medications regularly but torsemide he misses on some days when he has appointments or when he is going out. He is saying he takes the evening dose but the morning dose is not very consistent with. No cardiac sounding chest pain. 12/16/2023: He is here for follow-up. Has been using torsemide regularly. He is saying his breathing is better. He also got knee injections and is having less knee pain and is able to walk. He is taking Ozempic but is saying that weight has not changed significantly. He is 330 lb today and his weight is actually more than his previous weights. He said Ozempic dose was increased. 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 Social History Household Members: Friend(s) and Other Household Members Other:: sober living home Housing: House Housing Other:: sober house-rents room Are you a primary critical care clinical nurse specialist to a significant other at home: No Do you presently have visiting nurse or other home services: Yes (CARBON SETTER 3x week) Alcohol intake: former Patient Tobacco Use Status: Former Tobacco user Tobacco use type: Cigarette Years Smoked: 40 Substance Use Type: Crack/Cocaine, Former Substance User, Heroin, Marijuana and Prescription Drugs Advance Directives Date on File: 07/05/20 service: No Current occupational status: unemployed Review of Systems Const Denies chills, Denies fatigue, Denies fever(s), Denies frequent falls, Denies weakness, Denies weight gain and Denies weight loss ENT Denies dizziness Card Denies chest pain, Denies leg edema, Denies lightheadedness, Denies palpitations, Denies dyspnea and Denies dyspnea on exertion Resp Denies cough, Denies dyspnea and Denies dyspnea on exertion GI Denies hematochezia Musc Denies abnormal gait, Denies muscle weakness, Denies numbness, Denies radiating pain into limb and Denies tingling Neuro Denies abnormal gait, Denies dizziness, Denies frequent falls, Denies numbness, Denies tingling and Denies weakness Endo Denies fatigue and Denies palpitations Physical Exam Vital Signs: Last Vital Signs Pulse 82 12/16/23 14:38 BP 130/64 12/16/23 14:38 BMI result Body Mass Index 46.1 GENERAL APPEARANCE: In no acute distress. Obese. NECK: no carotid bruit. SKIN: no suspicious lesions, warm and dry. HEART: no murmurs, regular rate and rhythm. LUNGS: Clear to auscultation bilaterally ABDOMEN: soft,? non tender, mildly distended. EXTREMITIES:? No edema. PERIPHERAL PULSES: equal. NEUROLOGIC: No gross deficits, AAO X 3 Office Procedures EKG Details: AV dual paced rhythm 82 beats per minute, QRS duration 156 milliseconds. QTC 535 milliseconds. [id number], Complete Assessment & Plan Assessment & Plan (1) Biventricular ICD (implantable cardioverter-defibrillator) in place: Comment: Medtronic, implanted 06/28/20 Code(s): Z95.810 - Presence of automatic (implantable) cardiac defibrillator Category: Medical (2) Chronic diastolic heart failure: Code(s): I50.32 - Chronic diastolic (congestive) heart failure Category: Medical Plan [age] year gentleman who is here for follow-up. He has background history of diastolic heart failure. Previously history of noncompliance but has been taking medications regularly now. He is on torsemide 60 mg twice a day. Overall volume status appears to be good. He is morbidly obese and physical examination is limited. He is taking medications including Entresto, Toprol-XL and Jardiance. He is on Ozempic for weight loss for so far has not lost any weight. Continue same medications currently. Blood pressure control is reasonably well. I discussed with him about the CardioMEMS device. Given his obesity and difficult to manage volume status he may benefit from this. We will rediscuss this further at next visit and schedule if he agrees. He will see us back in 3 months. Thank you for allowing me to participate in the care of your patient. Please feel free to contact me if you have any questions. Coding Level of Care Code Est Pt Level 4 (28032) Diagnoses Biventricular ICD (implantable cardioverter-defibrillator) in place Z95.810 Chronic diastolic heart failure I50.32 CPT Codes EKG - CPT: 82517-[id number], Complete ([id number])
== END 2023-12-16 15:10 | disposition home or self-care (01) ==
PROVIDERS: PCP Internal Medicine; Visit Provider Internal Medicine Cardiovascular Disease
DX: Z95.810 Presence of automatic (implantable) cardiac defibrillator (principal); I50.32 Chronic diastolic (congestive) heart failure
CPT/HCPCS: 93010; 99214

== ENCOUNTER → 2023-12-16 14:31 | Outpatient (BNVA) | payer OTHER, SELFPAY | PROVIDERS: PCP Internal Medicine; Visit Provider Internal Medicine Cardiovascular Disease | DX: I50.32 Chronic diastolic (congestive) heart failure (principal); Z95.810 Presence of automatic (implantable) cardiac defibrillator | CPT/HCPCS: 93005; 99212 ==

== ENCOUNTER 2024-01-04 14:47 | Outpatient (REF) | payer OTHER, SELFPAY ==
[2024-01-04 16:54] LABS: TSH reflex Free T4 1.55 uIU/mL (0.32-4.0)
== END 2024-01-04 14:48 | disposition home or self-care (01) ==
LOC: HO.HHCL 14:47
PROVIDERS: Visit Provider Internal Medicine
DX: R53.82 Chronic fatigue, unspecified (principal)
CPT/HCPCS: 36415; 84443

== ENCOUNTER 2024-01-05 13:40 | Outpatient (AMB) | payer OTHER, SELFPAY ==
--- NOTE | 2024-01-05 14:05 | MHC.AMDMED ---
Intake Intake Visit Reasons: 60 Min-conf Invoice Classification Clerk Required: No Invoice Classification Clerk Services: Invoice Classification Clerk Offered & Declined Accompanied by: Self / Same As Patient Allergies lisinopril Adverse Reaction (Intermediate, Verified 11/20/23 13:43) cough HPI Comprehensive Diabetes Asmnt Most Recent Diabetes Results: Hemoglobin A1c 9.6 % 08/11/19 Microalb/Creat Ratio 88.8 ug/mg cr (<30) H 10/05/23 Cholesterol 161 mg/dL (<200) 10/05/23 HDL Cholesterol 41 mg/dL (>40) 10/05/23 Triglycerides 100 mg/dL (<150) 10/05/23 Creatinine 0.94 mg/dL (0.5-1.4) 06/16/23 Blood Urea Nitrogen 14 mg/dL (9-16) 06/16/23 Sodium 139 mmol/L (135-145) 06/16/23 Potassium 5.0 mmol/L (3.3-5.1) 06/16/23 Chloride 105 mmol/L (96-108) 06/16/23 Carbon Dioxide 26 mmol/L (22-29) 06/16/23 Calcium 8.5 mg/dL (8.4-10.2) 06/16/23 AST 19 U/L (5-37) 10/01/22 ALT 17 U/L (0-40) 10/01/22 Total Protein 8.1 g/dL (6.5-8.0) H 10/01/22 Albumin 3.8 g/dL (3.5-5.0) 10/01/22 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 Social History Household Members: Friend(s) and Other Household Members Other:: sober living home Housing: House Housing Other:: sober house-rents room Are you a primary home health care respiratory therapist to a significant other at home: No Do you presently have visiting nurse or other home services: Yes (HEADLINER INSTALLER 3x week) Alcohol intake: former Patient Tobacco Use Status: Former Tobacco user Tobacco use type: Cigarette Years Smoked: 40 Substance Use Type: Crack/Cocaine, Former Substance User, Heroin, Marijuana and Prescription Drugs Advance Directives Date on File: 07/05/20 service: No Current occupational status: unemployed Assessment & Plan Assessment & Plan (1) Diabetic nephropathy associated with type 2 diabetes mellitus: Code(s): E11.21 - Type 2 diabetes mellitus with diabetic nephropathy Plan: Personal Continuous Glucose Monitor: Patients CGM information reviewed, Pt uses Dexcom G7, will be transitioning to Home 3 sensor after he uses existing Dexcom G7 sensor Instructed him to call body cleaner if he needs assistance in setting up Home 3 sensors and reader Sensor data: Hypoglycemia: 0% Hyperglycemia:? 68% Time in Range:? 32% Average glucose for the last 2 weeks? 217 mg/dL Will be seeing nurse practitioner on 01/20/2024, will A1c drawn at that visit Patient is taking Humulin U 500 120 units at approximately 9-10 a.m., then 2nd dose of U Humulin U 500 between 50 and 60 units at 6-7 p.m. Patient is also taking Ozempic 2 mg weekly, reports at last visit with PCP had a discussion about the importance of reducing his weight Patient reports minimal physical activity due to mobility issues Will send message to SOFTWARE SALES CONSULTANT to see if it would be appropriate to switch patient from Ozempic to Mounjaro, due to ability to increase doses more frequently than with Ozempic Reviewed with patient topics below Exercise Medical clearance Effect of exercise on blood sugar Start slowly and gradually increase pace/duration over time Goal amount of exercise Checking blood glucose/have a source of carbs with you Patient able to insert sensor independently at home without issue.? Chair exercise handout given Patient Instructions: Patient will contact web press jogger if he needs assistance with Home 3 transition Patient will follow-up with web press jogger in 3 months Coding Level of Care Code Est Pt Level 1 (98497) Diagnoses Diabetic nephropathy associated with type 2 diabetes mellitus E11.21
== END 2024-01-05 14:27 | disposition home or self-care (01) ==
LOC: HO.ENCR 13:41
PROVIDERS: PCP Internal Medicine; Visit Provider Registered Nurse Diabetes Educator
DX: E11.21 Type 2 diabetes mellitus with diabetic nephropathy (principal)

== ENCOUNTER → 2024-01-05 13:40 | Outpatient (BNVA) | payer OTHER, SELFPAY | PROVIDERS: PCP Internal Medicine; Visit Provider Registered Nurse Diabetes Educator | DX: E11.21 Type 2 diabetes mellitus with diabetic nephropathy (principal) | CPT/HCPCS: 99211 ==

== ENCOUNTER → 2024-01-15 23:59 | Outpatient (BNV) | payer OTHER, SELFPAY ==
--- NOTE | 2024-01-30 20:01 | MHC.OFFVIS ---
Intake Visit Reasons: Remote ICD check- Medtronic Allergies lisinopril Adverse Reaction (Intermediate, Verified 01/26/24 13:34) cough PFSH Medical History Tubular adenoma Vitamin D deficiency Hypoxia Paroxysmal atrial fibrillation Biventricular ICD (implantable cardioverter-defibrillator) in place Chest pain Congestive heart failure (CHF) Dyslipidemia Morbid obesity Diabetic neuropathy associated with type 2 diabetes mellitus halfway (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 Social History Household Members: Friend(s) and Other Household Members Other:: sober living home Housing: House Housing Other:: sober house-rents room Are you a primary behavioral health care manager to a significant other at home: No Do you presently have visiting nurse or other home services: Yes (DENTIST ATTENDANT 3x week) Alcohol intake: former Patient Tobacco Use Status: Former Tobacco user Tobacco use type: Cigarette Years Smoked: 40 Substance Use Type: Crack/Cocaine, Former Substance User, Heroin, Marijuana and Prescription Drugs Advance Directives Date on File: 07/05/20 service: No Current occupational status: unemployed Office Procedures Cardiac Device Check Cardiac Device Check Details: ICD Battery life 2 years. BUSINESS CONTINUITY SPECIALIST 99.8%. No new alerts. [id number] Cardiac Device Check, multi lead implantable defibrillator Procedure code (CPT) selection complete Assessment & Plan Assessment & Plan (1) Biventricular ICD (implantable cardioverter-defibrillator) in place: Comment: Medtronic, implanted 06/28/20 Code(s): Z95.810 - Presence of automatic (implantable) cardiac defibrillator Category: Medical Plan Coding Level of Care Code Procedure Only Diagnoses Biventricular ICD (implantable cardioverter-defibrillator) in place Z95.810 CPT Codes Cardiac Device Check - Cardiac Device 6: 47222-MS Cardiac Device Check, multi lead implantable defibrillator ([id number])
== END ==
PROVIDERS: PCP Internal Medicine; Visit Provider Internal Medicine Cardiovascular Disease
DX: Z45.02 Encounter for adjustment and management of automatic implantable cardiac defibrillator (principal)
CPT/HCPCS: 93295

== ENCOUNTER → 2024-01-15 23:59 | Outpatient (BNV) | payer OTHER, SELFPAY ==
--- NOTE | 2024-01-30 20:05 | MHC.OFFVIS ---
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 Social History Household Members: Friend(s) and Other Household Members Other:: sober living home Housing: House Housing Other:: sober house-rents room Are you a primary physician locums urgent care to a significant other at home: No Do you presently have visiting nurse or other home services: Yes (PROFESSOR OF BIBLICAL STUDIES 3x week) Alcohol intake: former Patient Tobacco Use Status: Former Tobacco user Tobacco use type: Cigarette Years Smoked: 40 Substance Use Type: Crack/Cocaine, Former Substance User, Heroin, Marijuana and Prescription Drugs Advance Directives Date on File: 07/05/20 service: No Current occupational status: unemployed Office Procedures Cardiac Device Check Cardiac Device Check Details: HF monitoring Ongoing fluid overload from nov to december with improvement in the fluid level since then. [id number] Device Interrogation, cardiac physiologic monitor system Procedure code (CPT) selection complete Assessment & Plan Assessment & Plan (1) Nonischemic cardiomyopathy: Code(s): I42.8 - Other cardiomyopathies Category: Medical Plan: Coding Level of Care Code Procedure Only Diagnoses Nonischemic cardiomyopathy I42.8 CPT Codes Cardiac Device Check - Cardiac Device 10: [id number] Device Interrogation, cardiac physiologic monitor system ([id number])
== END ==
PROVIDERS: PCP Internal Medicine; Visit Provider Internal Medicine Cardiovascular Disease
DX: I42.8 Other cardiomyopathies (principal); Z95.810 Presence of automatic (implantable) cardiac defibrillator
CPT/HCPCS: 93297

== ENCOUNTER 2024-01-18 12:55 | Emergency (ER) | payer OTHER, SELFPAY ==
--- NOTE | ~2024-01-18 | XR_ITS ---
EXAMINATION: XR WRIST, RIGHT CLINICAL INFORMATION: Nontraumatic pain COMPARISON: None available. TECHNIQUE: PA, lateral, and oblique views of the right wrist. FINDINGS: No acute fracture or dislocation. Narrowing of the radiocarpal joint. There is soft tissue swelling along the dorsal aspect of the wrist. XR/XR wrist RT min 3V IMPRESSION: No acute fracture or dislocation. Soft tissue swelling along the dorsal aspect of the wrist. Electronically signed by: Patricia Jimenez MD 01/18/2024 06:12 PM SABRINA LOMAS
[2024-01-18 13:03] VITALS: BP 114/67; PULSE 105; RESP 28; TEMP 37.7; O2SAT 93; BMI 46.2
[2024-01-18 13:41] LABS: Basophils Absolute Auto 0.1 X10*3/uL (0.0-0.2); Basophils Percent Auto 0.4 % (0-2); Eosinophils Percent Auto 0.1 % (0-4); Hematocrit 46.2 % (42.0-52.0); Hemoglobin 15.2 g/dl (14.0-18.0); Imm Gran Abs Auto 0.06 X10*3/uL (0.00-0.03); Imm Gran Pct Auto 0.5 % (0.0-0.4); Lymphocytes Absolute Auto 0.8 X10*3/uL (1.2-4.9); Lymphocytes Percent Auto 6.8 % (20-40); MANUAL DIFF FLAG SCAN; Mean Corpuscular HGB Conc 32.9 g/dl (31.0-36.0); Mean Corpuscular Hemoglobin 29.2 pg (27.0-33.0); Mean Corpuscular Volume 88.8 fL (80.0-98.0); Mean Platelet Volume 9.1 fL (9.4-12.4); Monocytes Absolute Auto 2.1 X10*3/uL (0.1-1.2); Monocytes Percent Auto 17.6 % (2-11); Neutrophils Absolute Auto 8.7 x10*3/uL (2.0-8.3); Neutrophils Percent Auto 74.6 % (45-73); Platelet Count 207 X10*3/uL (160-400); Red Cell Distribution Width 14.1 % (11.0-16.0); SCAN SMEAR FLAG 1; White Blood Count 11.7 X10*3/uL (4.8-10.8)
[2024-01-18 13:47] LABS: INTERNATIONAL NORM RATIO 1.2 (0.9-1.1); Prothrombin Time 14.5 SEC (10.9-12.4)
[2024-01-18 13:54] LABS: Alanine Aminotransferase 26 U/L (0-40); Albumin Level 3.9 g/dL (3.5-5.0); Alkaline Phosphatase 94 U/L (39-117); Anion Gap 17 (12-20); Aspartate Amino Transferase 31 U/L (5-37); Blood Urea Nitrogen 28 mg/dL (9-16); Carbon Dioxide 25 mmol/L (22-29); Chloride 99 mmol/L (96-108); Creatinine Clr Calc Pharmacy 69.3; Estimated Glomerular Filt Rate 45; Glucose Random 221 mg/dL (60-115); Potassium 3.7 mmol/L (3.3-5.1); Sodium 137 mmol/L (135-145); Total Protein 7.4 g/dL (6.5-8.0)
[2024-01-18 13:59] LABS: Lactic Acid 2.4 mmol/L (0.5-2.0)
[2024-01-18 14:00] LABS: SLIDE REVIEW VERIFIED
--- NOTE | 2024-01-18 14:15 | PC.NURSE ---
Charge nurse made aware of patients labs and need to come back at this time
[2024-01-18 14:29] LABS: Influenza A PCR NEGATIVE (Negative); Influenza B PCR NEGATIVE (Negative); Resp Syncy Virus RNA Qual PCR NEGATIVE (Negative); SARS COV2 PCR INHOUSE NEGATIVE (Negative)
[2024-01-18 15:38] LABS: Reflex Lactate? Lactic Acid Added
--- NOTE | 2024-01-18 16:08 | ED_ITS ---
HPI - General Adult General Chief complaint: General Medical Stated complaint: r hand pain Time Seen by Provider: 01/18/24 16:08 History of Present Illness ED Provider: Cedric BURGOS narrative: The patient is a 64-year-old male with a history of multiple medical problems including type 2 diabetes. The patient says that he is normally on colchicine because of gout. He says that for some reason something went wrong with his prescription for colchicine recently and he has not taken any for the last couple of weeks. He says that starting 3 days ago he started have pain in his right wrist which is similar to previous episodes of gout. He says that he had a very severe episode of gout in his left arm several months ago and was treated at [facility]. He says the pain he has been experiencing over the last 3 days is very similar to his previous gout only he is experiencing a primarily in his right wrist which is new. He has had some nausea and vomiting. No definite fevers. No trauma. Related Data Home Medications ?Medication ?Instructions ?Recorded ?Confirmed metoprolol succinate 100 mg 100 mg PO DAILY 08/31/20 12/16/23 tablet,extended release 24 hr atorvastatin 40 mg tablet 40 mg PO DAILY 12/10/22 12/16/23 colchicine 0.6 mg tablet mg PO 10/23/23 12/16/23 gabapentin 800 mg tablet 800 mg PO TID 10/23/23 12/16/23 semaglutide 0.25 mg or 0.5 mg (2 2 mg subcut 10/23/23 12/16/23 mg/3 mL) subcutaneous pen injector (Ozempic) Previous Rx's ?Medication ?Instructions ?Recorded omeprazole 40 mg capsule,delayed 40 mg PO DAILY #30 caps 04/21/22 release albuterol sulfate 90 mcg/actuation 2 puff inhalation Q4-6H PRN 03/03/23 aerosol inhaler shortness of breath or wheezing #8.5 grams fluticasone propionate 50 1 spray intranasal BID #16 grams 05/11/23 mcg/actuation nasal spray,suspension empagliflozin 10 mg tablet 10 mg PO DAILY #30 tabs 08/05/23 (Jardiance) sacubitril 49 mg-valsartan 51 mg 1 tab PO BID 90 days #180 tabs 09/30/23 tablet (Entresto) BD Insulin Syringe U-500 1/2 mL 31 #300 ea 11/06/23 gauge x 15/64 (insulin U-500 syringe-needle) rivaroxaban 20 mg tablet (Xarelto) 20 mg PO QPM #90 tabs 11/10/23 Humulin R U-500 (Conc) Insulin 500 See Rx Instructions subcut QAM 30 11/20/23 unit/mL subcutaneous soln (insulin days #20 mL regular hum U-500 conc) torsemide 60 mg tablet 60 mg PO BID 90 days #180 tabs 11/24/23 FreeStyle Home 3 Plus Sensor #6 ea 12/29/23 (blood-glucose sensor) FreeStyle Home 3 [place] #1 ea 12/29/23 (blood-glucose meter,continuous) tirzepatide 2.5 mg/0.5 mL 2.5 mg (0.5 mL) subcut QWEEK 4 01/05/24 subcutaneous pen injector weeks #2 mL (Mounjaro) acetaminophen 500 mg capsule 1,000 mg (2 x 500 mg) PO TID PRN 01/18/24 pain #14 caps morphine 15 mg immediate release 15 mg PO Q6H PRN pain #14 tabs 01/18/24 tablet prednisone 5 mg tablet 5 mg PO DIRECTED #78 tabs 01/18/24 Allergies Allergy/AdvReac Type Severity Reaction Status Date / Time lisinopril AdvReac Intermediate cough Verified 01/18/24 13:12 Review of Systems 2 Review of Systems: Yes all other systems are reviewed and are negative [facility] Past Medical History Medical History Tubular adenoma Vitamin D deficiency Hypoxia Paroxysmal atrial fibrillation Biventricular ICD (implantable cardioverter-defibrillator) in place Chest pain Congestive heart failure (CHF) Dyslipidemia Morbid obesity Diabetic neuropathy associated with type 2 diabetes mellitus 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 Social History Social History Household Members: Friend(s) and Other Household Members Other:: sober living home Housing: House Housing Other:: sober house-rents room Are you a primary day care teacher to a significant other at home: No Do you presently have visiting nurse or other home services: Yes (INSURANCE CLAIM APPROVER 3x week) Alcohol intake: former Patient Tobacco Use Status: Former Tobacco user Tobacco use type: Cigarette Years Smoked: 40 Smoked in Last 30 Days: No Use of substances other than those prescribed or required for medical reasons: No Substance Use Type: Crack/Cocaine, Former Substance User, Heroin, Marijuana and Prescription Drugs Advance Directives: Yes Advance Directives on File: Yes Advance Directives Date on File: 07/05/20 service: No Current occupational status: unemployed Physical Exam ED Vital Signs: Vital Signs - 24 hr 01/18/24 13:03 01/18/24 16:28 01/18/24 19:16 Temperature 99.8 F 99 F 98.7 F Pulse Rate 105 H 98 Respiratory Rate 28 H 20 Blood Pressure 114/67 134/69 Pulse Oximetry 93 92 Oxygen Delivery Method Room Air Room Air 01/18/24 20:12 Temperature 98.7 F Pulse Rate 98 Respiratory Rate 20 Blood Pressure 134/69 Pulse Oximetry 92 Oxygen Delivery Method Room Air BMI result Body Mass Index 46.2 Const Other: the patient is an obese 64-year-old male. He was awake and alert with a normal mental status. He was complaining of a lot of pain in his right arm near the wrist. HENMT Other: Face is symmetrical. Mucous membranes moist. Eyes General: appearance normal, both eyes and all related structures Neck Neck: Yes full ROM, Yes no lymphadenopathy and Yes no JVD Resp Effort & Inspection: normal respiratory effort Auscultation: clear to auscultation bilaterally Cardio Rate: regular rate Rhythm: regular rhythm Heart sounds: S1 normal heart sound present, S2 normal heart sound present and Murmur heart sound present ( No murmur heard) GI Other: abdomen is soft nontender Skin Other: there is swelling to the skin of the right arm in the region of the right wrist and hand. There is no erythema. Neuro Other: The patient is awake and alert with normal mental status. Cranial nerves are grossly intact. Patient has lot of pain in the region of the right wrist and hand but he seems to have intact sensation. I believe the strength assessment of the right hand is limited by the patient's pain. Extrem Other: The patient has a lot of tenderness in the region of the distal right forearm, wrist, hand, and fingers. Pain seems maximal in the region of the right wrist. I can put the wrist through a slight range of motion. It is not a stiff or frozen joint. The joints of the fingers of the hand are easily mobile although the fingers are swollen. The proximal forearm and elbow are nontender. There is an excellent radial pulse at the right wrist. The hand is warm and well perfused. Medications Administered Discontinued Medications Generic Name Dose Route Start Last Admin Trade Name Freq PRN Reason Stop Dose Admin Acetaminophen 975 mg 01/18/24 20:00 01/18/24 20:17 Acetaminophen 325 Mg Tablet PO 01/18/24 20:01 975 mg ONCE ONE Administration Colchicine 1.2 mg 01/18/24 17:19 01/18/24 19:11 Colchicine 0.6 Mg Tablet PO 01/18/24 17:20 1.2 mg ONCE ONE Administration Sodium Chloride 1,000 mls @ 999 mls/hr 01/18/24 16:30 01/18/24 20:17 Ns IV 01/18/24 17:30 Infused .Q1H1M MELANI Infusion Oxycodone HCl 5 mg 01/18/24 16:21 01/18/24 16:40 Oxycodone Hcl Immed Release 5 Mg Tablet PO 01/18/24 16:22 5 mg ONCE ONE Administration Prednisone 60 mg 01/18/24 19:57 01/18/24 20:17 Prednisone 20 Mg Tablet PO 01/18/24 19:58 60 mg ONCE ONE Administration Medical Decision Making Medical Decision Making [facility] Narrative: The patient is a 64-year-old male with a history of obesity, type 2 diabetes, and gout. I believe that his gout is normally managed prophylactically with colchicine. He says that something has gone wrong with his prescription recently and he has been out of colchicine for the last couple of weeks. He presents with right wrist pain that I think is consistent with a recurrence of his gout. His uric acid level is somewhat high. He is not febrile. My suspicion for an infectious joint in this case is low. The patient was given a dose of oxycodone and IV fluids. He was ultimately also given a dose of colchicine was some improvement in his pain. He feels well enough for discharge home. Given that his renal function is slightly worse than previous I think it would be probably more prudent in the short run to put him on a course of prednisone and have him follow-up with his regular doctor to reinstate his regular colchicine. The patient understands that course of prednisone will probably to higher blood sugars. He should stay in close touch with his PCP for follow-up. He should return if worse. Lab Data 01/18/24 13:33 01/18/24 13:33 Labs: Lab Results 01/18/24 01/18/24 01/18/24 Range/Units 13:33 16:31 18:29 WBC 11.7 H (4.8-10.8) X10*3/uL RBC 5.20 (4.60-5.80) X10*6/uL Hgb 15.2 (14.0-18.0) g/dl Hct 46.2 (42.0-52.0) % MCV 88.8 (80.0-98.0) fL MCH 29.2 (27.0-33.0) pg MCHC 32.9 (31.0-36.0) g/dl RDW 14.1 (11.0-16.0) % Plt Count 207 (160-400) X10*3/uL MPV 9.1 L (9.4-12.4) fL Immature Gran % (Auto) 0.5 H (0.0-0.4) % Neut % (Auto) 74.6 H (45-73) % Lymph % (Auto) 6.8 L (20-40) % [place] % (Auto) 17.6 H (2-11) % Eos % (Auto) 0.1 (0-4) % Baso % (Auto) 0.4 (0-2) % Lymph # (Auto) 0.8 L (1.2-4.9) X10*3/uL [place] # (Auto) 2.1 H (0.1-1.2) X10*3/uL Eos # (Auto) 0.0 (0.0-0.4) X10*3/uL Baso # (Auto) 0.1 (0.0-0.2) X10*3/uL Abs Immat Gran (auto) 0.06 H (0.00-0.03) X10*3/uL Absolute Neuts (auto) 8.7 H (2.0-8.3) x10*3/uL Absolute Nucleated RBC 0.000 (0.0-0.012) X10*3/uL Nucleated RBC % (auto) 0.0 (0.0-0.2) /100WBC Smear Tech's Comments VERIFIED PT 14.5 H (10.9-12.4) SEC INR 1.2 H (0.9-1.1) Sodium 137 (135-145) mmol/L Potassium 3.7 D (3.3-5.1) mmol/L Chloride 99 (96-108) mmol/L Carbon Dioxide 25 (22-29) mmol/L Anion Gap 17 (12-20) BUN 28 H (9-16) mg/dL Creatinine 1.56 H (0.5-1.4) mg/dL Estim Creat Clear Calc 69.3 Estimated GFR 45 POC Glucose 296 H (60-115) mg/dL Random Glucose 221 H (60-115) mg/dL Lactic Acid 2.4 H* (0.5-2.0) mmol/L Lactic Acid F/U @ 2Hr 1.6 (0.5-2.0) mmol/L Uric Acid 8.4 H (3.4-7.0) mg/dL Calcium 9.0 (8.4-10.2) mg/dL Total Bilirubin 1.0 (0.0-1.0) mg/dL AST 31 (5-37) U/L ALT 26 (0-40) U/L Alkaline Phosphatase 94 (39-117) U/L C-Reactive Protein 14.13 H (< or = 0.50) mg/dL Total Protein 7.4 (6.5-8.0) g/dL Albumin 3.9 (3.5-5.0) g/dL Influenza Type A (PCR) NEGATIVE (Negative) Influenza Type B (PCR) NEGATIVE (Negative) RSV RNA Qual (PCR) NEGATIVE (Negative) SARS-CoV-2 RNA (RT-PCR) NEGATIVE (Negative) Discharge Plan Discharge Clinical Impression: Acute gout of right wrist, Type 2 diabetes mellitus Patient Disposition: Home, Self-Care Instructions: Gout (ED) Additional Instructions: I believe that your pain is primarily from a recurrence of gout. You have been started on a course of prednisone. Prednisone has been prescribed that you will be on a ?taper. You will take 12 small tablets tomorrow. The day after that you will take 11. Each day after that you will take 1 tablet less per day until done. I have also sent a prescription for acetaminophen and morphine which you may use as needed for pain. You may take 2 tablets of the acetaminophen up to 3 times a day. You may use the morphine on an as-needed basis in addition if necessary. No driving on morphine. Please contact your regular doctor's office tomorrow to discuss how you are doing and try to get a follow up appointment in the next day or 2 so they can re-evaluate you and help you keep an eye on your blood sugar. Prednisone will make your blood sugar go up. Return to the emergency room if you feel significantly worse or if you develop a fever. Prescriptions: New prednisone 5 mg tablet 5 mg PO DIRECTED Qty: 78 0RF Rx Instructions: see taper instructions: By mouth take 12 tabs daily for 1 day, then 11 tabs daily for 1 day, then 10 tabs daily for 1 day, continue 1 tablet less per day until done. morphine 15 mg tablet 15 mg PO Q6H PRN (Reason: pain) Qty: 14 0RF Rx Instructions: Partial Fill upon patient request. acetaminophen 500 mg capsule 1,000 mg PO TID PRN (Reason: pain) Qty: 14 0RF No Action metoprolol succinate 100 mg tablet extended release 24 hr 100 mg PO DAILY omeprazole 40 mg capsule,delayed release(DR/EC) 40 mg PO DAILY Qty: 30 0RF Rx Instructions: Obtain refills from GI or PCP fluticasone propionate 50 mcg/actuation spray,suspension 1 spray intranasal BID Qty: 16 2RF Jardiance 10 mg tablet 10 mg PO DAILY Qty: 30 3RF Entresto 49-51 mg tablet 1 tab PO BID 90 Days Qty: 180 3RF Xarelto 20 mg tablet 20 mg PO QPM Qty: 90 3RF torsemide 60 mg tablet 60 mg PO BID 90 Days Qty: 180 1RF (DME) [employer] 3 Plus Sensor Device See Rx Instructions .Route Qty: 6 11RF Rx Instructions: As directed (DME) FreeStyle Home 3 [place] Misc See Rx Instructions .ROUTE .MEDSUPPLY Qty: 1 0RF Rx Instructions: As directed albuterol sulfate 90 mcg/actuation HFA aerosol inhaler 2 puff inhalation Q4-6H PRN (Reason: shortness of breath or wheezing) Qty: 8.5 0RF atorvastatin 40 mg tablet 40 mg PO DAILY Ozempic 0.25 mg or 0.5 mg (2 mg/3 mL) pen injector 2 mg subcut gabapentin 800 mg tablet 800 mg PO TID colchicine 0.6 mg tablet PO (DME) BD Insulin Syringe U-500 1/2 mL 31 gauge x 15/64 syringe See Rx Instructions .ROUTE .MEDSUPPLY Qty: 300 3RF Rx Instructions: tid Mounjaro 2.5 mg/0.5 mL pen injector 2.5 mg subcut QWEEK 28 Days Qty: 2 11RF Humulin R U-500 (Conc) Insulin 500 unit/mL solution See Rx Instructions subcut QAM 30 Days Qty: 20 6RF Rx Instructions: 100-120 units before breakfast 40-50 units before supper subcutaneously Referrals: Linh Cook MD [Primary Care Provider] - (Right wrist gout ) Interventions: ED Discharge Assessment Last Done: 01/18/24 20:12 Discharge Date/Time: 01/18/24 20:28 Print Language: Argentine
[2024-01-18 16:28] VITALS: TEMP 37.2
[2024-01-18 16:36] LABS: C Reactive Protein 14.13 mg/dL (< or = 0.50); Uric Acid 8.4 mg/dL (3.4-7.0)
[2024-01-18] MEDS: 0.9 % Sodium Chloride 1,000 ML 999 ML IV (16:37)
[2024-01-18] MEDS: oxyCODONE HCl Immed Release 5 MG TABLET PO (16:40)
[2024-01-18 16:55] LABS: ~Lactic Acid-LAB USE ONLY 1.6 mmol/L (0.5-2.0)
[2024-01-18 18:33] LABS: Glucose, Whole Blood 296 mg/dL (60-115)
--- NOTE | 2024-01-18 19:05 | PC.NURSE ---
Colchicine not available in the medical centers. Call placed to pharmacy by director of workforce development. Medication arrives to unit at 1901. On coming RN to administer.
--- NOTE | 2024-01-18 19:06 | PC.NURSE ---
report received from Anna Jimenez RN, assume care of pt at this time
[2024-01-18] MEDS: Colchicine 0.6 MG TABLET 1.2 MG PO (19:11)
[2024-01-18 19:16] VITALS: BP 134/69; PULSE 98; RESP 20; TEMP 37.1; O2SAT 92
--- NOTE | 2024-01-18 19:22 | PC.NURSE ---
food given per MD cantu
[2024-01-18 20:12] VITALS: BP 134/69; PULSE 98; RESP 20; TEMP 37.1; O2SAT 92
[2024-01-18] MEDS: Acetaminophen 325 MG TABLET 975 MG PO (20:17)
[2024-01-18] MEDS: predniSONE 20 MG TABLET 60 MG PO (20:17)
== END 2024-01-18 20:28 | disposition home or self-care (01) ==
PROVIDERS: Emergency Provider Emergency Medicine; PCP Internal Medicine
DX: M10.031 Idiopathic gout, right wrist (principal); E11.9 Type 2 diabetes mellitus without complications; R11.0 Nausea; Z03.818 Encounter for observation for suspected exposure to other biological agents ruled out; Z79.899 Other long term (current) drug therapy; Z51.81 Encounter for therapeutic drug level monitoring
CPT/HCPCS: 0241U; 73110; 80053; 82947; 83605; 84550; 85025; 85610; 86140; 87040; 96360; 96361; 99284

== ENCOUNTER 2024-01-20 13:24 | Outpatient (AMB) | payer OTHER, SELFPAY ==
--- NOTE | 2024-01-20 13:27 | A.OFFVIS_ITS ---
Vital Signs 01/20/24 13:28 Height 5 ft 11 in Weight 335 lb 1.642 oz BMI 46.7 BP 138/82 Blood Pressure Location Rt brachial Position Sitting Pulse 89 Pulse Source Pulse Oximeter Intake Visit Reasons: DM/CONF Intake Note: Patient presents today for a follow-up on Type 2 Diabetes Mellitus: Last Diabetic Eye exam: 05/2023 Last Podiatry Exam: Does not see a Field Horticultural Specialty Grower Most recent HbA1c: DUE, A1c machine reject the blood sample, pt will do the A1c at the lab. Random Glucose- 330 mg/dL, Today Hoop Flaring Machine Operator Helper Required: Yes Hoop Flaring Machine Operator Helper Language: Content Engineer Services: Hoop Flaring Machine Operator Helper Offered & Declined Accompanied by: Self / Same As Patient Allergies lisinopril Adverse Reaction (Intermediate, Verified 01/26/24 13:34) cough HPI Comments Details: 70 year-old male with a past medical history of chronic hepatitis-B, type 1 diabetes, hypertension, HLD, and a Pituitary macroadenoma. He is seen in F/U today. He was previously followed by an director validation Dr. Chaudhry in [facility] for his diabetes. He who was last seen by Dr. Encarnacion 10/2023 for diabetes and by Dr. Encarnacion 05/2023 for pituitary microadenoma which will not be addressed today. Most recent A1C 12/23/23 %, 09/2023 8.7%, and 05/2023 9.8%. He has been seen by Shannan TORO for potential pump May/2023 but had decided to see if Tresiba would lower his A1c. He had tried Ozempic but had diarrhea. Mounjaro 2.5 mg was prescribed but insurance denied. Was metformin when he was first diagnosed. Current diabetes regimen: Tresiba 36 units Novolog 15 units AC. At least 50% of the time he takes after the meal He is not accurately counting carbohydrates. He does drink juice and does not give any insulin for this. Dexcom average glucose: 251 14 day continuous glucose monitor report reviewed Glucose Managment indicator 9.3 % Days with CGM data 92 % TIme in ranges: 50 % very high (above 250) 23 % high (181-250) 26 % in range (70-180] 1 % low (69-55) Less than 1 % very low (below 54) 92 Standard Deviation Interpretation [ occasional low but some persistent highs postprandial] Reports low sugars occasionally, yesterday had a 40 in the am before breakfast, Doesn't always have a snack at hs. Treats lows according to the rule of 15's. Denies retinopathy: Has eyes checked yearly, last eye exam: November 2023 Has glaucoma Denies Neuropathy: no numbness, tingling or cramping. He is off Lisinopril now per the recommendation of his Crate Maker. He developed orthostatic hypotension in 2020 and was having low BP with RAFAEL/ARB so these were stopped. Sees Dr. Galo last seen 12/30 has f/u 2-3 months Has HLD, on Atorvastatin 80 mg PO daily and Zetia 10 mg PO daily. LDL 58 01/2023 Had labs at [facility] Has history of CAD with triple vessel PTCA He had a CVA in 2020.. 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, c peptide was low Diet: Exercise: [facility] Medical History Tubular adenoma Vitamin D deficiency Hypoxia Paroxysmal atrial fibrillation Biventricular ICD (implantable cardioverter-defibrillator) in place Chest pain Congestive heart failure (CHF) Dyslipidemia Morbid obesity Diabetic neuropathy associated with type 2 diabetes mellitus correction (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 Social History Household Members: Friend(s) and Other Household Members Other:: sober living home Housing: House Housing Other:: sober house-rents room Are you a primary care transitions nurse to a significant other at home: No Do you presently have visiting nurse or other home services: Yes (COMMERCIAL COLLECTIONS DRIVER 3x week) Alcohol intake: former Patient Tobacco Use Status: Former Tobacco user Tobacco use type: Cigarette Years Smoked: 40 Substance Use Type: Crack/Cocaine, Former Substance User, Heroin, Marijuana and Prescription Drugs Advance Directives Date on File: 07/05/20 service: No Current occupational status: unemployed Physical Exam Vital Signs: Last Vital Signs Pulse 89 01/20/24 13:28 BP 138/82 01/20/24 13:28 BMI result Body Mass Index 46.7 Const Other: Absence of Cushingoid features. Absence of acromegalic features. Neck exam reveals nl size thyroid about 15 gms. No thyroid nodules palpable. Heart S1 S2, Reg R/R. No M/R G. Skin exam reveals absence of vitiligo or acanthosis nigricans. Results Reviewed Results Reviewed: Laboratory Last Values Glucose (Clinic) 330 mg/dL (60-115) H 01/20/24 13:35 Assessment & Plan Assessment & Plan (1) Diabetes type 2, uncontrolled: Code(s): E11.65 - Type 2 diabetes mellitus with hyperglycemia Category: Medical Qualifiers: Glycemic state: with hyperglycemia Qualified Code(s): E11.65 - Type 2 diabetes mellitus with hyperglycemia Plan: Type 2 diabetic who has transitioned off of the pump as he was doing quite poorly on this and was consistently taking off it off at night. We will continue U500 insulin Jardiance and transition from Ozempic to Mounjaro The patient had an opportunity to ask questions regarding treatment plan. The patient expressed understanding and agreement with the above treatment plan. The patient is aware they should contact our office by phone for worsening glucose readings or for any low blood sugars which may warrant a change in diabetes medication. Compliance is encouraged with medications and any followup testing/consults which may have been ordered. Orders: Orders Lactic Acid 01/20/24 E11.65 - Type 2 diabetes mellitus with hyperglycemia Hemoglobin A1c 01/20/24 E11.65 - Type 2 diabetes mellitus with hyperglycemia Medications: New tirzepatide (Mounjaro) 2.5 mg (0.5 mL) subcut QWEEK 2 mL 11RF 4 weeks E11.21 - Type 2 diabetes mellitus with diabetic nephropathy Patient Instructions: The patient was counseled to achieve a target A1C of 7% (154 avg). Fasting blood sugars should be 90-130 in the morning and less than 180 two hours after meals. Reviewed the relationship between poor diabetic control and the development of complications. Low glucose protocol Check your feet daily looking for any signs of infection, ulceration and seek medical attention if this occurs. Break in shoes gradually and do not wear open-toed shoes or walk barefooted. Coding Level of Care Code Est Pt Level 4 (91911) Complex EM visit Add On G2211 Diagnoses Diabetes type 2, uncontrolled E11.65 Glycemic state: with hyperglycemia
[2024-01-20 13:28] VITALS: BP 138/82; PULSE 89; BMI 46.7
[2024-01-20 13:43] LABS: Glucose, Whole Blood 330 mg/dL (60-115)
== END 2024-01-20 14:03 | disposition home or self-care (01) ==
PROVIDERS: PCP Internal Medicine; Visit Provider Nurse Practitioner Adult Health
DX: E11.65 Type 2 diabetes mellitus with hyperglycemia (principal)
CPT/HCPCS: 99214; G2211

== ENCOUNTER → 2024-01-20 13:24 | Outpatient (BNVA) | payer OTHER, SELFPAY | PROVIDERS: PCP Internal Medicine; Visit Provider Nurse Practitioner Adult Health | DX: E11.65 Type 2 diabetes mellitus with hyperglycemia (principal); E11.21 Type 2 diabetes mellitus with diabetic nephropathy; E78.5 Hyperlipidemia, unspecified; Z79.4 Long term (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 of insulin | CPT/HCPCS: 82947; 99212 ==

== ENCOUNTER 2024-01-26 12:58 | Outpatient (AMB) | payer OTHER, SELFPAY ==
[2024-01-26 13:30] VITALS: BP 120/60; PULSE 95; O2SAT 92; BMI 47.0
--- NOTE | 2024-01-26 13:30 | A.OFFVIS_ITS ---
Vital Signs 01/26/24 13:30 Height 5 ft 11 in Weight 337 lb BMI 47.0 BP 120/60 Blood Pressure Location Rt brachial Position Sitting Pulse 95 Pulse Source Doppler Pulse Oximetry (%) 92 Oxygen Delivery Method Room Air Intake Visit Reasons: Asthma Underwriting Technician Required: Yes Underwriting Technician Name: Sugar DavisBettieChaya Allergies lisinopril Adverse Reaction (Intermediate, Verified 01/26/24 13:34) cough HPI HPI Asthma: Details: 64-year-old gentleman with underlying history significant for systolic heart failure with EF of 10-15% on diuretic therapy prior history of cocaine abuse followed for allergic asthma and JANELL.? Patient continues on Xolair and albuterol MDI with excellent control of his asthma symptoms.? He denies recent asthma exacerbations. He has been using CPAP with good control of his underlying sleep apnea symptoms. His lower extremity edema and heart failure symptoms are reasonably controlled on torsemide 60 mg b.i.d. when he uses it consistently. He denies recent exacerbations. His weight is unfortunately continues to increase. [facility] Medical History Tubular adenoma Vitamin D deficiency Hypoxia Paroxysmal atrial fibrillation Biventricular ICD (implantable cardioverter-defibrillator) in place Chest pain Congestive heart failure (CHF) Dyslipidemia Morbid obesity Diabetic neuropathy associated with type 2 diabetes mellitus alf (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 Social History Household Members: Friend(s) and Other Household Members Other:: sober living home Housing: House Housing Other:: sober house-rents room Are you a primary healthcare account manager to a significant other at home: No Do you presently have visiting nurse or other home services: Yes (PASSPORT SUPPORT MANAGER 3x week) Alcohol intake: former Patient Tobacco Use Status: Former Tobacco user Tobacco use type: Cigarette Years Smoked: 40 Substance Use Type: Crack/Cocaine, Former Substance User, Heroin, Marijuana and Prescription Drugs Advance Directives Date on File: 07/05/20 service: No Current occupational status: unemployed Review of Systems Const Denies daytime sleepiness, Denies excessive sweating, Denies fatigue, Denies fever(s), Denies lethargy, Denies malaise, Denies night sweats, Denies snoring and Denies weight loss Eyes Denies blurry vision and Denies itchy eyes ENT Denies nasal congestion, Denies post nasal drip, Denies sinus pain, Denies sinus pressure and Denies other ( Thrush) Card Denies chest pain, Reports pedal edema, Denies dyspnea, Reports dyspnea on exertion, Reports orthopnea and Reports paroxysmal nocturnal dyspnea Resp Denies cough, Denies hemoptysis, Denies excessive phlegm production, Denies dyspnea, Reports dyspnea on exertion, Denies snoring and Denies wheezing GI Denies abdominal pain and Denies heartburn Musc Denies myalgias, Denies arthralgias and Denies joint swelling Skin/Breast Denies rash Neuro Denies memory loss and Denies seizure-like activity Psych Denies abnormal sleep pattern, Denies anxiety and Denies memory loss Endo Denies excessive sweating, Denies fatigue and Denies heat intolerance Wander/Lymph Denies easy bruising Aller/Immun Denies itchy eyes, Denies seasonal rhinorrhea and Denies wheezing Physical Exam Vital Signs: Last Vital Signs Pulse 95 01/26/24 13:30 BP 120/60 01/26/24 13:30 Pulse Ox 92 01/26/24 13:30 Oxygen Delivery Method Room Air 01/26/24 13:30 BMI result Body Mass Index 47.0 Const General: no acute distress and alert Nutritional Appearance: obese Orientation/consciousness: Other orientation findings ( oriented) HEENT Head: Yes atraumatic Eyes General: appearance normal, both eyes and all related structures Sclerae: sclerae normal EOM: EOMs intact bilaterally Neck Neck: Yes supple Lymphatic: no lymphadenopathy noted Resp Effort & Inspection: normal respiratory effort and no use of accessory muscles Auscultation: clear to auscultation bilaterally Cardio Rate: regular rate Rhythm: regular rhythm Heart sounds: no gallops, no murmurs and no rubs Skin General skin exam: other ( warm) Extrem General: No clubbing, No cyanosis and Yes edema Assessment & Plan Assessment & Plan (1) Asthma: Code(s): J45.909 - Unspecified asthma, uncomplicated Category: Medical Plan: Well controlled on current regimen of Xolair and albuterol MDI. Continue current regimen. (2) Environmental allergies: Code(s): Z91.09 - Other allergy status, other than to drugs and biological substances Category: Medical Plan: Well controlled on Xolair. Continue current regimen. (3) JANELL on CPAP: Code(s): G47.33 - Obstructive sleep apnea (adult) (pediatric); Z99.89 - Dependence on other enabling machines and devices Category: Medical Plan: Controlled on current noninvasive positive pressure ventilation. Continue current therapy. Coding Level of Care Code Est Pt Level 4 (38514) Diagnoses Asthma J45.909 Environmental allergies Z91.09 JANELL on CPAP G47.33; Z99.89
== END 2024-01-26 13:58 | disposition home or self-care (01) ==
PROVIDERS: PCP Internal Medicine; Visit Provider Internal Medicine Pulmonary Disease
DX: J45.909 Unspecified asthma, uncomplicated (principal); Z91.09 Other allergy status, other than to drugs and biological substances; G47.33 Obstructive sleep apnea (adult) (pediatric); Z99.89 Dependence on other enabling machines and devices
CPT/HCPCS: 99214

== ENCOUNTER → 2024-01-26 12:58 | Outpatient (BNVA) | payer OTHER, SELFPAY | PROVIDERS: PCP Internal Medicine; Visit Provider Internal Medicine Pulmonary Disease | DX: J45.909 Unspecified asthma, uncomplicated (principal); G47.33 Obstructive sleep apnea (adult) (pediatric); Z91.09 Other allergy status, other than to drugs and biological substances; Z99.89 Dependence on other enabling machines and devices | CPT/HCPCS: 99212 ==

== ENCOUNTER → 2024-02-16 23:59 | Outpatient (BNV) | payer OTHER, SELFPAY ==
--- NOTE | 2024-02-18 10:35 | MHC.OFFVIS ---
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 Social History Household Members: Friend(s) and Other Household Members Other:: sober living home Housing: House Housing Other:: sober house-rents room Are you a primary medicare compliance auditor to a significant other at home: No Do you presently have visiting nurse or other home services: Yes (LIME PULLER 3x week) Alcohol intake: former Patient Tobacco Use Status: Former Tobacco user Tobacco use type: Cigarette Years Smoked: 40 Substance Use Type: Crack/Cocaine, Former Substance User, Heroin, Marijuana and Prescription Drugs Advance Directives Date on File: 07/05/20 service: No Current occupational status: unemployed Office Procedures Cardiac Device Check Cardiac Device Check Details: HF monitoring Stable thoracic impedance. [id number] Device Interrogation, cardiac physiologic monitor system Procedure code (CPT) selection complete Assessment & Plan Assessment & Plan (1) Nonischemic cardiomyopathy: Code(s): I42.8 - Other cardiomyopathies Category: Medical Plan Orders: Orders AMB Cardiac Device Follow-up 02/16/24 I48.0 - Paroxysmal atrial fibrillation Coding Level of Care Code Procedure Only Diagnoses Nonischemic cardiomyopathy I42.8 CPT Codes Cardiac Device Check - Cardiac Device 10: [id number]-[id number] Device Interrogation, cardiac physiologic monitor system ([id number])
== END ==
PROVIDERS: PCP Internal Medicine; Visit Provider Internal Medicine Cardiovascular Disease
DX: I42.8 Other cardiomyopathies (principal); Z95.810 Presence of automatic (implantable) cardiac defibrillator
CPT/HCPCS: 93297

== ENCOUNTER 2024-02-23 15:21 | Outpatient (AMB) | payer OTHER, SELFPAY ==
--- NOTE | 2024-02-23 15:23 | MHC.OFFVIS ---
Vital Signs 02/23/24 15:24 Height 5 ft 11 in Weight 347 lb BMI 48.4 BP 147/78 H Blood Pressure Location Rt brachial Position Sitting Pulse 106 H Pulse Source Doppler Pulse Oximetry (%) 89 L Oxygen Delivery Method Room Air Intake Visit Reasons: increased shortness of breath Editing Clerk Required: Yes Editing Clerk Name: Sugar Zepeda C.L.M Allergies lisinopril Adverse Reaction (Intermediate, Verified 01/26/24 13:34) cough HPI HPI increased shortness of breath: Details: 64-year-old gentleman with underlying history significant for systolic heart failure with EF of 10-15% on diuretic therapy prior history of cocaine abuse followed for allergic asthma and JANELL.? Patient continues on Xolair and albuterol MDI with excellent control of his asthma symptoms.? He denies recent asthma exacerbations. He has been using CPAP with good control of his underlying sleep apnea symptoms. Unfortunately, his lower extremity edema and orthopnea getting worse despite patient being consistent with his torsemide 60 mg b.i.d.. 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 Social History Household Members: Friend(s) and Other Household Members Other:: sober living home Housing: House Housing Other:: sober house-rents room Are you a primary skin care consultant to a significant other at home: No Do you presently have visiting nurse or other home services: Yes (VENEER DRIER TAILER 3x week) Alcohol intake: former Patient Tobacco Use Status: Former Tobacco user Tobacco use type: Cigarette Years Smoked: 40 Substance Use Type: Crack/Cocaine, Former Substance User, Heroin, Marijuana and Prescription Drugs Advance Directives Date on File: 07/05/20 service: No Current occupational status: unemployed Review of Systems Const Denies daytime sleepiness, Denies excessive sweating, Denies fatigue, Denies fever(s), Denies lethargy, Denies malaise, Denies night sweats, Denies snoring and Denies weight loss Eyes Denies blurry vision and Denies itchy eyes ENT Denies nasal congestion, Denies post nasal drip, Denies sinus pain, Denies sinus pressure and Denies other ( Thrush) Card Denies chest pain, Reports pedal edema, Denies dyspnea, Reports dyspnea on exertion, Reports orthopnea and Reports paroxysmal nocturnal dyspnea Resp Denies cough, Denies hemoptysis, Denies excessive phlegm production, Denies dyspnea, Reports dyspnea on exertion, Denies snoring and Denies wheezing GI Denies abdominal pain and Denies heartburn Musc Denies myalgias, Denies arthralgias and Denies joint swelling Skin/Breast Denies rash Neuro Denies memory loss and Denies seizure-like activity Psych Denies abnormal sleep pattern, Denies anxiety and Denies memory loss Endo Denies excessive sweating, Denies fatigue and Denies heat intolerance Wander/Lymph Denies easy bruising Aller/Immun Denies itchy eyes, Denies seasonal rhinorrhea and Denies wheezing Physical Exam Vital Signs: Last Vital Signs Pulse 106 H 02/23/24 15:24 BP 147/78 H 02/23/24 15:24 Pulse Ox 89 L 02/23/24 15:24 Oxygen Delivery Method Room Air 02/23/24 15:24 BMI result Body Mass Index 48.4 Const General: no acute distress and alert Nutritional Appearance: obese Orientation/consciousness: Other orientation findings ( oriented) HEENT Head: Yes atraumatic Eyes General: appearance normal, both eyes and all related structures Sclerae: sclerae normal EOM: EOMs intact bilaterally Neck Neck: Yes supple Lymphatic: no lymphadenopathy noted Resp Effort & Inspection: normal respiratory effort and no use of accessory muscles Auscultation: clear to auscultation bilaterally Cardio Rate: regular rate Rhythm: regular rhythm Heart sounds: no gallops, no murmurs and no rubs Skin General skin exam: other ( warm) Extrem General: No clubbing, No cyanosis and Yes edema (2+ bilateral) Assessment & Plan Assessment & Plan (1) ACOSTA (dyspnea on exertion): Code(s): R06.09 - Other forms of dyspnea Category: Medical Plan: Suboptimal control on torsemide 60 b.i.d., will switch to Bumex 2 mg daily and metolazone Thursday. (2) Severe persistent asthma: Code(s): J45.50 - Severe persistent asthma, uncomplicated Category: Medical Plan: Well controlled on baseline regimen of Xolair and albuterol MDI. Continue current regimen. (3) Environmental allergies: Code(s): Z91.09 - Other allergy status, other than to drugs and biological substances Category: Medical Plan: Well controlled on Xolair. Continue current regimen. Medications: New bumetanide 2 mg PO DAILY 30 tabs 6RF metolazone 5 mg PO MOWEFR 13 tabs 6RF 30 days Discontinued torsemide Discontinued Reason: Doctor's Order 60 mg PO BID 90 days 180 tabs 1RF Coding Level of Care Code Est Pt Level 4 (88198) Complex EM visit Add On G2211 Diagnoses ACOSTA (dyspnea on exertion) R06.09 Severe persistent asthma J45.50 Environmental allergies Z91.09
[2024-02-23 15:24] VITALS: BP 147/78; PULSE 106; O2SAT 89; BMI 48.4
== END 2024-02-23 15:41 | disposition home or self-care (01) ==
PROVIDERS: PCP Internal Medicine; Visit Provider Internal Medicine Pulmonary Disease
DX: R06.09 Other forms of dyspnea (principal); J45.50 Severe persistent asthma, uncomplicated; Z91.09 Other allergy status, other than to drugs and biological substances
CPT/HCPCS: 99214; G2211

== ENCOUNTER → 2024-02-23 15:21 | Outpatient (BNVA) | payer OTHER, SELFPAY | PROVIDERS: PCP Internal Medicine; Visit Provider Internal Medicine Pulmonary Disease | DX: J45.50 Severe persistent asthma, uncomplicated (principal); R06.09 Other forms of dyspnea; Z91.09 Other allergy status, other than to drugs and biological substances | CPT/HCPCS: 99212 ==

== ENCOUNTER → 2024-03-18 23:59 | Outpatient (BNV) | payer OTHER, SELFPAY ==
--- NOTE | 2024-03-27 18:21 | A.OFFVIS_ITS ---
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 Social History Household Members: Friend(s) and Other Household Members Other:: sober living home Housing: House Housing Other:: sober house-rents room Are you a primary pet care associate to a significant other at home: No Do you presently have visiting nurse or other home services: Yes (AUTOMATIC DRILLER AND REAMER 3x week) Alcohol intake: former Patient Tobacco Use Status: Former Tobacco user Tobacco use type: Cigarette Years Smoked: 40 Substance Use Type: Crack/Cocaine, Former Substance User, Heroin, Marijuana and Prescription Drugs Advance Directives Date on File: 07/05/20 service: No Current occupational status: unemployed Office Procedures Cardiac Device Check Cardiac Device Check Details: HF monitoring V paced 99% Stable thoracic impedance. [id number] Cardiac Device Interrogation, cardio physiologic monitor Procedure code (CPT) selection complete Assessment & Plan Assessment & Plan (1) Biventricular ICD (implantable cardioverter-defibrillator) in place: Comment: Medtronic, implanted 06/28/20 Code(s): Z95.810 - Presence of automatic (implantable) cardiac defibrillator Category: Medical Plan Coding Level of Care Code Procedure Only Diagnoses Biventricular ICD (implantable cardioverter-defibrillator) in place Z95.810 CPT Codes Cardiac Device Check - Cardiac Device 15: [id number] Cardiac Device Interrogation, cardio physiologic monitor ([id number])
== END ==
PROVIDERS: PCP Internal Medicine; Visit Provider Internal Medicine Cardiovascular Disease
DX: Z45.02 Encounter for adjustment and management of automatic implantable cardiac defibrillator (principal)
CPT/HCPCS: 93297

== ENCOUNTER 2024-03-28 13:58 | Outpatient (AMB) | payer OTHER, SELFPAY ==
[2024-03-28 14:32] VITALS: BP 124/76; PULSE 82; BMI 49.3
--- NOTE | 2024-03-28 14:32 | MHC.OFFVIS ---
Vital Signs 03/28/24 14:32 Height 5 ft 11 in Weight 353 lb 2.888 oz BMI 49.3 BP 124/76 Blood Pressure Location Lt brachial Position Sitting Pulse 82 Pulse Source Pulse Oximeter Intake Visit Reasons: 3 mth f/up Intake Note: 3 mth f/up Instrumentation And Controls Designer Required: No Accompanied by: Self / Same As Patient Allergies lisinopril Adverse Reaction (Intermediate, Verified 01/26/24 13:34) cough Medication List - Last Reconciled 03/28/24 by Lionel Paul MD acetaminophen 1,000 mg (2 x 500 mg) PO TID PRN albuterol sulfate 90 mcg/actuation 2 puffs inhalation Q4-6H PRN atorvastatin 40 mg PO DAILY BD Insulin Syringe U-500 (insulin U-500 syringe-needle) tid NS bumetanide 2 mg PO DAILY colchicine mg PO empagliflozin (Jardiance) 10 mg PO DAILY fluticasone propionate 50 mcg/actuation 1 spray intranasal BID FreeStyle Home 3 Plus Sensor (blood-glucose sensor) As directed NS FreeStyle Home 3 [place] (blood-glucose meter,continuous) As directed NS gabapentin 800 mg PO TID Humulin R U-500 (Conc) Insulin (insulin regular hum U-500 conc) 100-120 units before breakfast 40-50 units before supper subcutaneously 30 days NS metolazone 5 mg PO MOWEFR 30 days metoprolol succinate ER 100 mg PO DAILY omeprazole 40 mg PO DAILY prednisone 5 mg PO DIRECTED rivaroxaban (Xarelto) 20 mg PO QPM sacubitril-valsartan 49-51 mg (Entresto) 1 tab PO BID 90 days tirzepatide (Mounjaro) 2.5 mg (0.5 mL) subcut QWEEK 4 weeks HPI Comments Details: 64-year-old gentleman here for follow up. He previously had nonischemic cardiomyopathy which was in the setting of cocaine and heroin abuse. He was found to have significant PVC burden of 40,000 PVCs in 24 hours and was put on amiodarone with improvement in ejection fraction to 50-55%. While on amiodarone he had some changes on pulmonary function testing with moderately reduced DLCO and we decided to stop the amiodarone. He previously had cardiac catheterization which did not show any coronary artery disease. In 2021 he was admitted at [facility] followed by [facility] for congestive heart failure. At [facility] was found to have difficult to control atrial flutter and his ejection fraction was severely reduced. Subsequently was admitted again at [facility] and it appears he had Bi V AICD placement. He had a device interrogation done and it showed rising thoracic impedance as well as runs of ventricular tachycardia which was nonsustained. He did not get any therapies from his device. His Bumex was changed to torsemide because he continued to gain weight while taking the diuretics. Since then he has been doing well. His device interrogation has shown that he is biventricular pacing more than 95% time now. Repeat echocardiography has shown normal left ventricular function. He returns for follow-up. He has been experiencing some shortness of breath. He also feels tired. He takes torsemide in the morning and at night around 9-10 o'clock. He is saying that he urinates all night and does not sleep well. He also has joint issues including back and right knee issues ongoing. 12/10/22: He is here for f/u. He was given metolazone by pul which helped diuresis but he developed hypokalemia and was in the ER. He is saying he has not been taking the metolazone since then. He has fatigue and dyspnea. He has been taking torsemide but misses it on some days. He is complaining of some left sided chest pains off and on. 09/02/2023: He is here for follow-up. He is on Ozempic but is complaining that he has not lost any weight. Taking medications regularly but torsemide he misses on some days when he has appointments or when he is going out. He is saying he takes the evening dose but the morning dose is not very consistent with. No cardiac sounding chest pain. 12/16/2023: He is here for follow-up. Has been using torsemide regularly. He is saying his breathing is better. He also got knee injections and is having less knee pain and is able to walk. He is taking Ozempic but is saying that weight has not changed significantly. He is 330 lb today and his weight is actually more than his previous weights. He said Ozempic dose was increased. 03/28/2024: On follow-up today he is complaining of significant shortness of breath. He is saying that he has gained approximately 25 lb since January. He was taking torsemide 60 mg twice a day and was fairly stable previously but it appears he started gaining weight on that. He saw pulmonology we torsemide was stopped and he was started on Bumex 2 mg along with metolazone 5 mg on Thursday and Thursday. He said he took the Bumex and metolazone and that helped him but then stopped working completely. He is saying he is unable to walk due to his weight and is currently walking with a walker. Clear signs of volume overload and heart failure. 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 Social History Household Members: Friend(s) and Other Household Members Other:: sober living home Housing: House Housing Other:: sober house-rents room Are you a primary primary care provider to a significant other at home: No Do you presently have visiting nurse or other home services: Yes (STRAWHAT INSPECTOR AND PACKER 3x week) Alcohol intake: former Patient Tobacco Use Status: Former Tobacco user Tobacco use type: Cigarette Years Smoked: 40 Substance Use Type: Crack/Cocaine, Former Substance User, Heroin, Marijuana and Prescription Drugs Advance Directives Date on File: 07/05/20 service: No Current occupational status: unemployed Review of Systems Const Denies chills, Denies fatigue, Denies fever(s), Denies frequent falls, Denies weakness, Denies weight gain and Denies weight loss ENT Denies dizziness Card Denies chest pain, Denies leg edema, Denies lightheadedness, Denies palpitations, Denies dyspnea and Denies dyspnea on exertion Resp Denies cough, Denies dyspnea and Denies dyspnea on exertion GI Denies hematochezia Musc Denies abnormal gait, Denies muscle weakness, Denies numbness, Denies radiating pain into limb and Denies tingling Neuro Denies abnormal gait, Denies dizziness, Denies frequent falls, Denies numbness, Denies tingling and Denies weakness Endo Denies fatigue and Denies palpitations Physical Exam Vital Signs: Last Vital Signs Pulse 82 03/28/24 14:32 BP 124/76 03/28/24 14:32 BMI result Body Mass Index 49.3 GENERAL APPEARANCE: Short of breath, morbidly obese. NECK: no carotid bruit. Positive JVD. SKIN: no suspicious lesions, warm and dry. HEART: no murmurs, regular rate and rhythm. LUNGS: Clear to auscultation bilaterally ABDOMEN: soft,? non tender, distended. EXTREMITIES:? Mild edema. PERIPHERAL PULSES: equal. NEUROLOGIC: No gross deficits, AAO X 3 Assessment & Plan Assessment & Plan (1) Acute on chronic heart failure: Code(s): I50.9 - Heart failure, unspecified Category: Medical Plan [age] year gentleman with acute on chronic congestive heart failure. He had echocardiography recently which showed EF 30-40%. Currently has significant weight gain. We discussed about diuretic strategy. He is taking Bumex 2 mg daily and metolazone 5 mg on Thursday and Thursday. He is saying that Bumex is not working anymore. I think torsemide is the strongest diuretic and has better overall bio availability and long half-life. In him it may work better. After discussion we have decided to transition him back to torsemide at a higher dose of 80 mg twice a day. He will continue the metolazone on Thursday and Thursday. He will wait till Thursday to see if this strategy makes a meaningful difference in his breathing and if he is diuresing or not. If he does not get better then he will go to the emergency department. I told him that he currently has an option to go to ER but it appears that he wanted to try oral medicines 1st. We will set him up for follow-up in 2 weeks. Thank you for allowing me to participate in the care of your patient. Please feel free to contact me if you have any questions. Medications: New torsemide 80 mg (2 x 40 mg) PO DAILY 240 tabs 4RF Discontinued bumetanide Discontinued Reason: Doctor's Order 2 mg PO DAILY 30 tabs 6RF Coding Level of Care Code Est Pt Level 5 (80173) Diagnoses Acute on chronic heart failure I50.9
== END 2024-03-28 15:27 | disposition home or self-care (01) ==
PROVIDERS: PCP Internal Medicine; Visit Provider Internal Medicine Cardiovascular Disease
DX: I50.9 Heart failure, unspecified (principal); R06.02 Shortness of breath
CPT/HCPCS: 99215

== ENCOUNTER → 2024-03-28 13:58 | Outpatient (BNVA) | payer OTHER, SELFPAY | PROVIDERS: PCP Internal Medicine; Visit Provider Internal Medicine Cardiovascular Disease | DX: I50.9 Heart failure, unspecified (principal); R06.02 Shortness of breath | CPT/HCPCS: 99212 ==

== ENCOUNTER → 2024-04-01 12:48 | Outpatient (BNVA) | payer OTHER, SELFPAY | PROVIDERS: PCP Internal Medicine; Visit Provider Nurse Practitioner Adult Health | DX: E11.65 Type 2 diabetes mellitus with hyperglycemia (principal); Z79.4 Long term (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 of insulin; Z79.84 Long term (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 of oral hypoglycemic drugs | CPT/HCPCS: 82947; 83036; 99212 ==

== ENCOUNTER → 2024-04-18 23:59 | Outpatient (BNV) | payer OTHER, SELFPAY ==
--- NOTE | 2024-04-25 12:01 | MHC.OFFVIS ---
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 Social History Household Members: Friend(s) and Other Household Members Other:: sober living home Housing: House Housing Other:: sober house-rents room Are you a primary health and social care teacher to a significant other at home: No Do you presently have visiting nurse or other home services: Yes (LAMP CLEANER 3x week) Alcohol intake: former Patient Tobacco Use Status: Former Tobacco user Tobacco use type: Cigarette Years Smoked: 40 Substance Use Type: Crack/Cocaine, Former Substance User, Heroin, Marijuana and Prescription Drugs Advance Directives Date on File: 07/05/20 service: No Current occupational status: unemployed Office Procedures Cardiac Device Check Cardiac Device Check Details: HF monitoring Optivol showing ongoing volume overload since early April. [id number] Cardiac Device Interrogation, cardio physiologic monitor Procedure code (CPT) selection complete Assessment & Plan Assessment & Plan (1) Acute on chronic heart failure: Code(s): I50.9 - Heart failure, unspecified Category: Medical Plan Orders: Orders AMB Cardiac Device Follow-up 04/18/24 I50.9 - Heart failure, unspecified Coding Level of Care Code Procedure Only Diagnoses Acute on chronic heart failure I50.9 CPT Codes Cardiac Device Check - Cardiac Device 15: [id number] Cardiac Device Interrogation, cardio physiologic monitor ([id number])
== END ==
PROVIDERS: PCP Internal Medicine; Visit Provider Internal Medicine Cardiovascular Disease
DX: I50.9 Heart failure, unspecified (principal); Z95.810 Presence of automatic (implantable) cardiac defibrillator
CPT/HCPCS: 93297

== ENCOUNTER → 2024-04-18 23:59 | Outpatient (BNV) | payer OTHER, SELFPAY ==
--- NOTE | 2024-04-25 11:58 | A.OFFVIS_ITS ---
Intake Visit Reasons: Remote device check- Medtronic Allergies lisinopril Adverse Reaction (Intermediate, Verified 04/19/24 13:34) cough [facility] Medical History (Updated 04/19/24 @ 16:38 by Rosalba De La Torre, MARIA E-C) Tubular adenoma Vitamin D deficiency Hypoxia Paroxysmal atrial fibrillation Biventricular ICD (implantable cardioverter-defibrillator) in place Chest pain Congestive heart failure (CHF) Dyslipidemia Morbid obesity Diabetic neuropathy associated with type 2 diabetes mellitus USP (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 Social History Household Members: Friend(s) and Other Household Members Other:: sober living home Housing: House Housing Other:: sober house-rents room Are you a primary patient care technician instructor to a significant other at home: No Do you presently have visiting nurse or other home services: Yes (SUPPORT ARCHITECT 3x week) Alcohol intake: former Patient Tobacco Use Status: Former Tobacco user Tobacco use type: Cigarette Years Smoked: 40 Substance Use Type: Crack/Cocaine, Former Substance User, Heroin, Marijuana and Prescription Drugs Advance Directives Date on File: 07/05/20 service: No Current occupational status: unemployed Office Procedures Cardiac Device Check Cardiac Device Check Details: BiV AICD Battery 1.8 years 99% Bi V paced. No new alerts. [id number] Cardiac Device Check, multi lead implantable defibrillator Procedure code (CPT) selection complete Assessment & Plan Assessment & Plan (1) Acute on chronic heart failure: Code(s): I50.9 - Heart failure, unspecified Category: Medical Plan Orders: Orders AMB Cardiac Device Follow-up 04/18/24 I50.9 - Heart failure, unspecified Coding Level of Care Code Procedure Only Diagnoses Acute on chronic heart failure I50.9 CPT Codes Cardiac Device Check - Cardiac Device 6: 90005-LC Cardiac Device Check, multi lead implantable defibrillator ([id number])
== END ==
PROVIDERS: PCP Internal Medicine; Visit Provider Internal Medicine Cardiovascular Disease
DX: I50.9 Heart failure, unspecified (principal); Z95.810 Presence of automatic (implantable) cardiac defibrillator
CPT/HCPCS: 93295

== ENCOUNTER 2024-04-19 13:06 | Outpatient (AMB) | payer OTHER, SELFPAY ==
[2024-04-19 13:28] VITALS: BP 114/62; PULSE 88; BMI 48.8
--- NOTE | 2024-04-19 13:28 | MHC.OFFVIS ---
Vital Signs 04/19/24 13:28 Height 5 ft 11 in Weight 350 lb 1.505 oz BMI 48.8 BP 114/62 Blood Pressure Location Lt brachial Position Sitting Pulse 88 Pulse Source Pulse Oximeter Intake Visit Reasons: 2wk f/up Drafting Technician Required: No Allergies lisinopril Adverse Reaction (Intermediate, Verified 04/19/24 13:34) cough Medication List - Last Reconciled 04/19/24 by VITOR Doran acetaminophen 1,000 mg (2 x 500 mg) PO TID PRN albuterol sulfate 90 mcg/actuation 2 puffs inhalation Q4-6H PRN atorvastatin 40 mg PO DAILY BD Insulin Syringe U-500 (insulin U-500 syringe-needle) tid NS colchicine mg PO empagliflozin (Jardiance) 10 mg PO DAILY fluticasone propionate 50 mcg/actuation 1 spray intranasal BID FreeStyle Home 3 Plus Sensor (blood-glucose sensor) As directed NS FreeStyle Home 3 [place] (blood-glucose meter,continuous) As directed NS gabapentin 800 mg PO TID Humulin R U-500 (Conc) Insulin (insulin regular hum U-500 conc) 100-120 units before breakfast 40-50 units before supper subcutaneously 30 days NS metolazone 5 mg PO MOWEFR 30 days metoprolol succinate ER 100 mg PO DAILY omeprazole 40 mg PO DAILY prednisone 5 mg PO DIRECTED rivaroxaban (Xarelto) 20 mg PO QPM sacubitril-valsartan 49-51 mg (Entresto) 1 tab PO BID 90 days tirzepatide (Mounjaro) 2.5 mg (0.5 mL) subcut QWEEK 4 weeks torsemide 20 mg PO BID HPI HPI 2wk f/up: Details: Ramiro is a 64 yo male with PMH of diabetes, hyperlipidemia, morbid obesity, sleep apnea with CPAP use, nonischemic cardiomyopathy with last known EF 30-35%, ICD, chronic heart failure with reduced EF, paroxysmal atrial fibrillation who was recently presented to [facility] with hypotension. He was given IV fluids, albumin and midodrine, blood pressure remain low and he was transferred to [facility] for further evaluation and treatment. He was thought to be dehydrated in his diuretics were decreased. His torsemide was reduced to 20 mg b.i.d.. Today he reports that he has been doing okay since his hospital discharge. He takes metolazone only when he feels short of breath at rest. He does have his usual shortness of breath with activity. He is not having chest pains, heart palpitations, lightheadedness, presyncope, syncope, falls. He has mild ankle edema. He ambulates with the use of a walker. He currently has visiting nurses 2 times weekly who are checking his vital signs and medications. He has been monitoring his weight at home. He has a [employer] LOOKOUT 4 times a week which helps him clean, food preparation and general care. He has been drinking 4-5 16 oz water bottles per day. 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 Social History Household Members: Friend(s) and Other Household Members Other:: sober living home Housing: House Housing Other:: sober house-rents room Are you a primary day care director to a significant other at home: No Do you presently have visiting nurse or other home services: Yes ([employer]EST FI[employer] LOOKOUT 3x week) Alcohol intake: former Patient Tobacco Use Status: Former Tobacco user Tobacco use type: Cigarette Years Smoked: 40 Substance Use Type: Crack/Cocaine, Former Substance User, Heroin, Marijuana and Prescription Drugs Advance Directives Date on File: 07/05/20 service: No Current occupational status: unemployed Review of Systems Const All systems reviewed & are unremarkable except as noted in HPI and below Reports lethargy ENT Denies dizziness Card Denies chest pain, Denies chest pain at rest, Denies chest pain with activity, Denies rapid heart rate, Denies pedal edema, Denies edema, Denies leg edema, Denies lightheadedness, Denies palpitations, Reports dyspnea and Reports dyspnea on exertion Resp Denies cough, Reports dyspnea and Reports dyspnea on exertion GI Denies hematochezia and Denies change in stool character Musc Reports abnormal gait (uses walker), Denies limited range of motion, Denies muscle cramps, Reports muscle weakness, Denies numbness, Denies radiating pain into limb, Denies stiffness and Denies tingling Neuro Reports abnormal gait (uses walker), Denies dizziness, Denies numbness and Denies tingling Endo Denies palpitations Physical Exam Vital Signs: Last Vital Signs Pulse 88 04/19/24 13:28 BP 114/62 04/19/24 13:28 BMI result Body Mass Index 48.8 Const Other: morbidly obese - sob with ambulating with walker General: no acute distress Nutritional Appearance: overweight Orientation/consciousness: patient oriented x3 Neck Other: obese -difficult to assess for JVD Resp Effort & Inspection: normal respiratory effort Auscultation: clear to auscultation bilaterally, no rales, no rhonchi and no wheezes Cardio Rate: regular rate Rhythm: regular rhythm Heart sounds: S1 normal heart sound present, S2 normal heart sound present, no murmurs and no rubs Neuro General: patient oriented x3 Extrem Other: Lower legs, no JVD - skin has purple venous stasis appearance Psych Appearance: grossly normal Mental Status: mental status grossly normal Speech and movement: Normal speech and movement present Assessment & Plan Assessment & Plan (1) Acute on chronic heart failure: Code(s): I50.9 - Heart failure, unspecified Category: Medical Plan: History of chronic systolic and diastolic heart failure. On last visit here his Bumex was changed to torsemide 80 mg b.i.d.. He also was on metolazone 5 mg on Thursday, Thursday and Thursday. He then had hypotension and presented to [facility] and ultimately transferred to [facility]. He was thought to have dehydration and his diuretics were decreased. Echocardiogram showed EF 30-35%, apex akinetic. His discharge with torsemide 20 mg b.i.d.. It sounds like he is taking metolazone only if he is feeling short of breath at rest. He has chronic shortness of breath with walking. Today he reports that he has been doing well since his hospital discharge. He currently has minimal leg edema. He has visiting nurse twice weekly who is checking vital signs, meds and weight. Labs at time of [facility] discharge 04/05/2024 showed potassium 3.9, creatinine 0.92. Will have him update labs including BMP and BNP. Daily weight monitoring reviewed. Instructed to reduce his p.o. fluid intake down to 48 oz daily which is 3 of his 16 oz water bottles. Reviewed salt reduction, less than 2 g daily. He can continue with current diuretics, no need to increase at this time. Cardiology follow-up in office 2-3 months, sooner if needed. (2) ACOSTA (dyspnea on exertion): Code(s): R06.09 - Other forms of dyspnea Category: Medical Plan: Chronic (3) Biventricular ICD (implantable cardioverter-defibrillator) in place: Comment: Medtronic, implanted 06/28/20 Code(s): Z95.810 - Presence of automatic (implantable) cardiac defibrillator Category: Medical Plan: Medtronic Bi V ICD in place. He has remote monitoring in use. Interrogation from 01/15/2024 showed battery 2 years. Will arrange for device check with Medtronic rep present in the next few months. (4) Paroxysmal atrial fibrillation: Code(s): I48.0 - Paroxysmal atrial fibrillation Category: Medical Plan: History of paroxysmal atrial fibrillation. He does have periodic episodes as noted on ICD interrogations. No recent reports of heart palpitations. He is on metoprolol for heart rate control. He is on Xarelto for anticoagulation. No bleeding issues reported. (5) Nonischemic cardiomyopathy: Code(s): I42.8 - Other cardiomyopathies Category: Medical Plan: Most recent EF 30-35%, Bi V ICD in place. He is on Jardiance, metoprolol XL, Entresto for neurohormonal modulation. (6) JANELL on CPAP: Code(s): G47.33 - Obstructive sleep apnea (adult) (pediatric); Z99.89 - Dependence on other enabling machines and devices Category: Medical Plan: He reports compliance with his CPAP mask. (7) Morbid obesity: Code(s): E66.01 - Morbid (severe) obesity due to excess calories Category: Medical (8) Hospital discharge follow-up: Code(s): Z09 - Encounter for follow-up examination after completed treatment for conditions other than malignant neoplasm Category: Medical Plan: [facility] discharge reviewed Plan Time spent on chart review, documentation, interview and assessment Orders: Orders Basic Metabolic Panel Today I50.9 - Heart failure, unspecified B Type Natriuretic Peptide Today I50.9 - Heart failure, unspecified Coding Level of Care Code Est Pt Level 4 (96609) Complex EM visit Add On G2211 Diagnoses Acute on chronic heart failure I50.9 ACOSTA (dyspnea on exertion) R06.09 Biventricular ICD (implantable cardioverter-defibrillator) in place Z95.810 Paroxysmal atrial fibrillation I48.0 Nonischemic cardiomyopathy I42.8 JANELL on CPAP G47.33; Z99.89 Morbid obesity E66.01 Hospital discharge follow-up Z09 Time Spent (min) 36
== END 2024-04-19 14:24 | disposition home or self-care (01) ==
PROVIDERS: PCP Internal Medicine; Visit Provider Nurse Practitioner Family
DX: I50.9 Heart failure, unspecified (principal); R06.09 Other forms of dyspnea; Z95.810 Presence of automatic (implantable) cardiac defibrillator; I48.0 Paroxysmal atrial fibrillation; I42.8 Other cardiomyopathies; G47.33 Obstructive sleep apnea (adult) (pediatric); Z99.89 Dependence on other enabling machines and devices; E66.01 Morbid (severe) obesity due to excess calories; Z09 Encounter for follow-up examination after completed treatment for conditions other than malignant neoplasm
CPT/HCPCS: 99214; G2211

== ENCOUNTER → 2024-04-19 13:06 | Outpatient (BNVA) | payer OTHER, SELFPAY | PROVIDERS: PCP Internal Medicine; Visit Provider Nurse Practitioner Family | DX: Z09 Encounter for follow-up examination after completed treatment for conditions other than malignant neoplasm (principal); I50.9 Heart failure, unspecified; I48.0 Paroxysmal atrial fibrillation; G47.33 Obstructive sleep apnea (adult) (pediatric); R06.09 Other forms of dyspnea; I42.8 Other cardiomyopathies; E66.01 Morbid (severe) obesity due to excess calories; Z95.810 Presence of automatic (implantable) cardiac defibrillator; Z99.89 Dependence on other enabling machines and devices | CPT/HCPCS: 99212 ==

== ENCOUNTER 2024-05-09 | Outpatient (REF) | payer OTHER, SELFPAY ==
[2024-05-09 13:26] LABS: Lactic Acid 3.6 mmol/L (0.5-2.0)
[2024-05-09 14:22] LABS: Estimated Average Glucose 214 mg/dL; Hemoglobin A1C 288.3068 umol/L; Hemoglobin A1c % 9.1 % (<6.0); Total Hemoglobin (HGBA1C) 3768.8965 umol/L
[2024-05-09 14:34] LABS: Creatinine Urine 30.62 mg/dL
[2024-05-09 14:35] LABS: Creatinine Urine 28.41 mg/dL; Microalbum/Creatinine Ratio Ur 28.1 ug/mg cr (<30)
[2024-05-09 14:42] LABS: B Type Natriuretic Peptide 84 pg/mL (<100)
[2024-05-09 14:49] LABS: Anion Gap 14 (12-20); Blood Urea Nitrogen 30 mg/dL (9-16); Calcium 8.9 mg/dL (8.4-10.2); Carbon Dioxide 32 mmol/L (22-29); Chloride 102 mmol/L (96-108); Estimated Glomerular Filt Rate 53; Glucose Random 127 mg/dL (60-115); Potassium 3.9 mmol/L (3.3-5.1); Sodium 144 mmol/L (135-145)
== END 2024-05-09 00:01 | disposition home or self-care (01) ==
LOC: HO.LNP
PROVIDERS: Nurse Practitioner Adult Health; Visit Provider Nurse Practitioner Family
DX: I50.9 Heart failure, unspecified (principal); E11.65 Type 2 diabetes mellitus with hyperglycemia; E11.21 Type 2 diabetes mellitus with diabetic nephropathy
CPT/HCPCS: 36415; 80048; 82043; 82570; 83036; 83605; 83880; 84443

== ENCOUNTER → 2024-05-19 23:59 | Outpatient (BNV) | payer OTHER, SELFPAY ==
--- NOTE | 2024-06-14 13:09 | MHC.OFFVIS ---
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 Social History Household Members: Friend(s) and Other Household Members Other:: sober living home Housing: House Housing Other:: sober house-rents room Are you a primary career development coordinator/teacher to a significant other at home: No Do you presently have visiting nurse or other home services: Yes (REFINING EQUIPMENT OPERATOR 3x week) Alcohol intake: former Patient Tobacco Use Status: Former Tobacco user Tobacco use type: Cigarette Years Smoked: 40 Substance Use Type: Crack/Cocaine, Former Substance User, Heroin, Marijuana and Prescription Drugs Advance Directives Date on File: 07/05/20 service: No Current occupational status: unemployed Office Procedures Cardiac Device Check Cardiac Device Check Details: Medtronic EDITOR IN CHIEF NEWSPAPER D. Heart failure monitoring. OptiVol showing ongoing fluid buildup since end of April 2024 with decreased thoracic impedance. [id number] Cardiac Device Interrogation, cardio physiologic monitor Procedure code (CPT) selection complete Assessment & Plan Assessment & Plan (1) Biventricular ICD (implantable cardioverter-defibrillator) in place: Comment: Medtronic, implanted 06/28/20 Code(s): Z95.810 - Presence of automatic (implantable) cardiac defibrillator Category: Medical Plan Coding Level of Care Code Procedure Only Diagnoses Biventricular ICD (implantable cardioverter-defibrillator) in place Z95.810 CPT Codes Cardiac Device Check - Cardiac Device 15: [id number] Cardiac Device Interrogation, cardio physiologic monitor ([id number])
== END ==
PROVIDERS: PCP Internal Medicine; Visit Provider Internal Medicine Cardiovascular Disease
DX: Z45.02 Encounter for adjustment and management of automatic implantable cardiac defibrillator (principal)
CPT/HCPCS: 93297

== ENCOUNTER 2024-05-27 15:00 | Outpatient (AMB) | payer OTHER, SELFPAY ==
--- NOTE | 2024-05-27 08:08 | A.OFFVIS_ITS ---
Vital Signs 05/27/24 15:02 05/31/24 05:46 Height 5 ft 11 in BMI Reason not done Patient refused/unable BP 90/50 L 110/60 Blood Pressure Location Lt brachial Rt brachial Position Sitting Sitting Pulse 100 Pulse Source Pulse Oximeter Pulse Oximetry (%) 96 Oxygen Delivery Method Room Air Intake Visit Reasons: DM Intake Note: Patient presents today for a follow-up on Type 2 Diabetes Mellitus: Last Diabetic Eye exam: 05/2023 Last Podiatry Exam: Does not see a Mental Health Counselor Most recent HbA1c: 10.0%, 04/01/2024 Random Glucose- 63 mg/dL, Today 15:04 PM Random Glucose- 105 mg/dL, Today Litigation Assistant Required: Yes Litigation Assistant Language: Pin Chaser Services: Litigation Assistant Offered & Declined Accompanied by: Self / Same As Patient Allergies lisinopril Adverse Reaction (Intermediate, Verified 04/19/24 13:34) cough HPI Comments Details: Patient is a 64 year old male with DM type 2 diagnosed who presents for continued management of diabetes. He was last seen 04/01/2024 at which time he was transported via ambulance to [facility] for cardiac/respiratory deterioration. A1C 04/01/24 10.0%, 10/23/23 11%. 09/24/22 8.5% His insulin pump has been discontinued. A1C of 8.5% was prior to going on the pump and at which time he was taking 120 units of U 500 in the morning and 40 for the dinner meal. He had not done well on an insulin pump and had difficulty wearing it at nighttime and was persistently taking off the pump each night. Pump was discontinued Micro and macrovascular complications: nephropathy, neuropathy, PAD, chf, cardiomyopathy He has sleep apnea on BiPAP, has defibrillator Sees cardiology regularly Diabetes medications: ?Now off pump Humulin U 500 AM. 125 units extra 10-15 as needed Supper time at 7pm 50-60 units Mounjaro 2.5mg Jardiance 10 mg daily average glucose: [ 241] 14 day continuous glucose monitor report reviewed Glucose Managment indicator 9.1 % Days with CGM data [ ] % TIme in ranges: 45 % very high (above 250) 22 % high ?(181-250) 32 % in range ?(70-180] 1 % low (69-55) 0 % ?very low (below 54) Interpretation glucose running higher than target Ophthalmology evaluation: saw optho 05/2023 Has neuropathy sees podiatry regularly Has nephropathy 05/09/2024 eGFR 53 microalbumin 05/09/24 8.0 09/2023 48.0 On ARB Has HLD on statin 09/2023 ldl 100 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 chronic heart failure [facility] Medical History (Updated 04/19/24 @ 16:38 by Rosalba De La Torre NP-C) Tubular adenoma Vitamin D deficiency Hypoxia Paroxysmal atrial fibrillation Biventricular ICD (implantable cardioverter-defibrillator) in place Chest pain Congestive heart failure (CHF) Dyslipidemia Morbid obesity 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 Social History Household Members: Friend(s) and Other Household Members Other:: sober living home Housing: House Housing Other:: sober house-rents room Are you a primary hemodialysis patient care specialist to a significant other at home: No Do you presently have visiting nurse or other home services: Yes (SUPERVISOR TILE AND MOTTLE 3x week) Alcohol intake: former Patient Tobacco Use Status: Former Tobacco user Tobacco use type: Cigarette Years Smoked: 40 Substance Use Type: Crack/Cocaine, Former Substance User, Heroin, Marijuana and Prescription Drugs Advance Directives Date on File: 07/05/20 service: No Current occupational status: unemployed Physical Exam Vital Signs: Last Vital Signs Pulse 100 05/27/24 15:02 BP 90/50 L 05/27/24 15:02 Pulse Ox 96 05/27/24 15:02 Oxygen Delivery Method Room Air 05/27/24 15:02 Const Other: Absence of Cushingoid features. Absence of acromegalic features. Neck exam reveals nl size thyroid about 15 gms. No thyroid nodules palpable. Lungs CTA. Heart S1 S2, Reg R/R. No M/R G. Skin exam reveals absence of vitiligo or acanthosis nigricans. No edema Visual exam of foot performed. No ulcerations or open lesions. No inter digit maceration or fissuring. No onychomycosis, no callouses. Sensation diminshed to monofilament exam. Vibratory sensation is diminished with 128 Hz tuning fork. Results Reviewed Results Reviewed: Laboratory Last Values Glucose (Clinic) 105 mg/dL (60-115) 05/27/24 15:25 Assessment & Plan Assessment & Plan (1) Diabetes type 2, uncontrolled: Code(s): E11.65 - Type 2 diabetes mellitus with hyperglycemia Category: Medical Qualifiers: Glycemic state: with hyperglycemia Qualified Code(s): E11.65 - Type 2 diabetes mellitus with hyperglycemia Plan: [age] year old type 2 diabetic with insulin resistance, multiple cardiac comorbidities, neuropathy and nephropathy with poorly controlled diabetes. Due to substantial low today in the office, will continue current level of insulin and patient advise to space meals. Will contact patient early next week to check on numbers. The patient had an opportunity to ask questions regarding treatment plan. The patient expressed understanding and agreement with the above treatment plan. The patient is aware they should contact our office by phone for worsening glucose readings or for any low blood sugars which may warrant a change in diabetes medication. Compliance is encouraged with medications and any followup testing/consults which may have been ordered. Patient Instructions: The patient was counseled to achieve a target A1C of 7% (154 avg). Fasting blood sugars should be 90-130 in the morning and less than 180 two hours after meals. Reviewed the relationship between poor diabetic control and the development of complications. Check your feet daily looking for any signs of infection, drainage, redness, ulceration and seek medical attention if this occurs. Break in shoes gradually and do not wear open-toed shoes or walk stocking footed or barefooted. Take 15 carb carbohydrate grams to treat a low sugar (3-4 glucose tablets, half a glass of juice or 15 carbohydrate grams of soft candy such as gummie snacks). Recheck your sugar in 15 minutes and re-treat again with 15 carbohydrate grams if low or still with symptoms. Do not drive a car or operate machinery if you do not know what your blood sugar is, if it is low or in excess of 300. Sick day management Coding Level of Care Code Est Pt Level 4 (35440) Complex EM visit Add On G2211 Diagnoses Diabetes type 2, uncontrolled E11.65 Glycemic state: with hyperglycemia Time Spent (min) 30 Comment Time spent reviewing labs/provider notes, face to face, chart doc
[2024-05-27 15:02] VITALS: BP 90/50; PULSE 100; O2SAT 96
[2024-05-27 15:08] LABS: Glucose, Whole Blood 63 mg/dL (60-115)
[2024-05-27 15:32] LABS: Glucose, Whole Blood 105 mg/dL (60-115)
[2024-05-31 05:46] VITALS: BP 110/60
== END 2024-05-27 15:39 | disposition home or self-care (01) ==
LOC: HO.ENCR 15:00
PROVIDERS: PCP Internal Medicine; Visit Provider Nurse Practitioner Adult Health
DX: E11.65 Type 2 diabetes mellitus with hyperglycemia (principal)
CPT/HCPCS: 99214; G2211

== ENCOUNTER → 2024-05-27 15:00 | Outpatient (BNVA) | payer OTHER, SELFPAY | PROVIDERS: PCP Internal Medicine; Visit Provider Nurse Practitioner Adult Health | DX: E11.65 Type 2 diabetes mellitus with hyperglycemia (principal); Z79.4 Long term (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 of insulin | CPT/HCPCS: 82947; 99212 ==

== ENCOUNTER 2024-10-26 13:01 | Outpatient (AMB) | payer OTHER, SELFPAY ==
--- NOTE | 2024-10-26 13:03 | A.OFFVIS_ITS ---
Vital Signs 10/26/24 13:12 Height 5 ft 11 in Weight 316 lb 9.341 oz BMI 44.1 BP 108/64 Blood Pressure Location Lt brachial Position Sitting Pulse 74 Pulse Source Pulse Oximeter Pulse Oximetry (%) 95 Oxygen Delivery Method Room Air Intake Visit Reasons: Diabetes type 2, uncontrolled Intake Note: Patient present today to follow up on Type 2 Diabetes Mellitus. Last Diabetic Eye exam: Due, Requesting a referral. Last Podiatry Visit: Does not see a Osteopathic Neurologist Random Glucose: 323 mg/dl Hgb A1C: 9.4% 10/26/2024 Community Relations Police Lieutenant Required: Yes Community Relations Police Lieutenant Language: Evs Manager Services: Community Relations Police Lieutenant Present Community Relations Police Lieutenant Name: [facility] Endo- [place] Information Interpreted: non-clinical & clinical Accompanied by: Self / Same As Patient Allergies lisinopril Adverse Reaction (Intermediate, Verified 10/26/24 13:12) cough Medication List - Last Reconciled 10/26/24 by Yang Encarnacion MD acetaminophen 1,000 mg (2 x 500 mg) PO TID PRN albuterol sulfate 90 mcg/actuation 2 puffs inhalation Q4-6H PRN atorvastatin 40 mg PO DAILY BD Insulin Syringe U-500 (insulin U-500 syringe-needle) tid NS blood sugar diagnostic (FreeStyle Lite Strips) As directed checks 4 X/day blood-glucose meter (FreeStyle Lite Meter kit) As directed checks 4 X/day colchicine mg PO empagliflozin (Jardiance) 10 mg PO DAILY fluticasone propionate 50 mcg/actuation 1 spray intranasal BID FreeStyle Home 3 Plus Sensor (blood-glucose sensor) As directed NS FreeStyle Home 3 [place] (blood-glucose,public service representative,cont) As directed NS gabapentin 800 mg PO TID Humulin R U-500 (Conc) Insulin (insulin regular hum U-500 conc) 100-120 units before breakfast 40-50 units before supper subcutaneously 30 days NS metolazone 5 mg PO MOWEFR 30 days metoprolol succinate ER 100 mg PO DAILY omeprazole 40 mg PO DAILY prednisone 5 mg PO DIRECTED rivaroxaban (Xarelto) 20 mg PO QPM sacubitril-valsartan 49-51 mg (Entresto) 1 tab PO BID tirzepatide (Mounjaro) 5 mg (0.5 mL) subcut QWEEK 28 days torsemide 20 mg PO BID HPI Comments Details: Patient is a 64 year old male with DM type 2 diagnosed who presents for continued management of diabetes. He was last seen 05/27/2024 by Ermelinda Ramey NP His insulin pump has been discontinued. A1C of 8.5% was prior to going on the pump and at which time he was taking 120 units of U 500 in the morning and 40 for the dinner meal. He had not done well on an insulin pump and had difficulty wearing it at nighttime and was persistently taking off the pump each night. Pump was discontinued Micro and macrovascular complications: nephropathy, neuropathy, PAD, chf, cardiomyopathy He has sleep apnea on BiPAP, has defibrillator Sees cardiology regularly Diabetes medications: ?Now off pump Humulin U 500 AM. 100 units extra 10-15 as needed Supper time at 7pm 40 units Mounjaro 5mg Jardiance 10 mg daily average glucose: [ 209] 14 day continuous glucose monitor report reviewed Glucose Managment indicator 8.3 % Days with CGM data 49 % TIme in ranges: 32 % very high (above 250) 31 % high ?(181-250) 37 % in range ?(70-180] 0 % low (69-55) 0 % ?very low (below 54) Interpretation glucose running higher than target. 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 has acute on chronic heart failure [facility] Medical History (Updated 04/19/24 @ 16:38 by Rosalba De La Torre NP-C) Tubular adenoma Vitamin D deficiency Hypoxia Paroxysmal atrial fibrillation Biventricular ICD (implantable cardioverter-defibrillator) in place Chest pain Congestive heart failure (CHF) Dyslipidemia Morbid obesity Diabetic neuropathy associated with type 2 diabetes mellitus 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 Social History Household Members: Friend(s) and Other Household Members Other:: sober living home Housing: House Housing Other:: sober house-rents room Are you a primary career developer to a significant other at home: No Do you presently have visiting nurse or other home services: Yes (LAYOUT OPERATOR 3x week) Alcohol intake: former Patient Tobacco Use Status: Former Tobacco user Tobacco use type: Cigarette Years Smoked: 40 Substance Use Type: Crack/Cocaine, Former Substance User, Heroin, Marijuana and Prescription Drugs Advance Directives Date on File: 07/05/20 service: No Current occupational status: unemployed Physical Exam Vital Signs: Last Vital Signs Pulse 74 10/26/24 13:12 BP 108/64 10/26/24 13:12 Pulse Ox 95 10/26/24 13:12 Oxygen Delivery Method Room Air 10/26/24 13:12 BMI result Body Mass Index 44.1 Const Other: Absence of Cushingoid features. Absence of acromegalic features. Neck exam reveals nl size thyroid about 15 gms. No thyroid nodules palpable. Lungs CTA. Heart S1 S2, Reg R/R. No M/R G. Skin exam reveals absence of vitiligo or acanthosis nigricans. No edema Visual exam of foot performed. No ulcerations or open lesions. Deep wound on L 5th digit down to fascia . No onychomycosis, no callouses. Sensation diminshed to monofilament exam. Vibratory sensation is diminished with 128 Hz tuning fork. Results AMB Hemoglobin A1c AMB Hemoglobin A1c 9.4 % Last Edit by MAMTA Huertas on 10/26/24 13:36 Results Reviewed Results Reviewed: Laboratory Last Values Glucose (Clinic) 323 mg/dL (60-115) H 10/26/24 13:23 Assessment & Plan Assessment & Plan (1) Diabetes type 2, uncontrolled: Code(s): E11.65 - Type 2 diabetes mellitus with hyperglycemia Category: Medical Qualifiers: Glycemic state: with hyperglycemia Qualified Code(s): E11.65 - Type 2 diabetes mellitus with hyperglycemia Plan: This 62-year-old female with history of type 2 diabetes and insulin resistance being treated with U-500 insulin and Gunner Walker with poor glycemic control and known microvascular and macrovascular complications namely Nephropathy neuropathy, CAD status post stent. Plan is to to have the patient follow-up with the family sociologist next few weeks. We will increase the U 500 to 120-140 units prior to breakfast and increase the Mounjaro to 7.5 mg Q weekly. We will check lipid profile. Urged pt to go to ER to access wound (tried to get him into wound clinic unsucessfully). Pt understands urgency and will go the ER tonight. Orders: Orders Lipid Panel Today E11.21 - Type 2 diabetes mellitus with diabetic nephropathy, E11.65 - Type 2 diabetes mellitus with hyperglycemia AMB Hemoglobin A1c Today E11.65 - Type 2 diabetes mellitus with hyperglycemia Medications: New tirzepatide (Mounjaro) 7.5 mg (0.5 mL) subcut QWEEK 2 mL 5RF Discontinued tirzepatide (Mounjaro) Discontinued Reason: Doctor's Order 5 mg (0.5 mL) subcut QWEEK 28 days 2 mL 6RF Coding Level of Care Code Est Pt Level 4 (80448) Complex EM visit Add On G2211 Diagnoses Diabetes type 2, uncontrolled E11.65 Glycemic state: with hyperglycemia
[2024-10-26 13:12] VITALS: BP 108/64; PULSE 74; O2SAT 95; BMI 44.1
[2024-10-26 13:29] LABS: Glucose, Whole Blood 323 mg/dL (60-115)
--- OUTSIDE RECORDS SUMMARY | 2024-10-26 13:54 | XMS_ITS | Continuity of Care Document ---
Author Name Lusi Reyez Address [address] [place] [id number] Organization Unknown Address [address] [place] [address] Medications No known medications Problems No known problems
--- OUTSIDE RECORDS SUMMARY | 2024-10-26 13:54 | XMS_ITS | Clinical Summary ---
Author Organization [facility], Address [address] [place] [address] [place] [address] Phone Care Team Providers Care Perinatal Nurse Name Role Phone Linh Cook MD Primary Care Provide r Allergies Active Allergy Reactions Criticality Noted Date Comments Lisinopril Nausea Medium 01/20/2018 Medications insulin regular (HumuLIN R) 500 UNIT/ML CONCENTRATED injection Comments: Filled Date: Jul 03 2014 12:00AM Duration: 4 Active Insulin Regular Human (HUMULIN R U-500, CONCENTRATED, SC) Inject under the skin Active Cholecalciferol (Vitamin D3) 125 MCG (5000 UT) tablet Take by mouth Active Calcium Carb-Cholecalcife rol (CALCIUM 600 + D PO) Take by mouth Active gabapentin (NEURONTIN) 600 MG tablet Take 600 mg by mouth 3 (three) times a day Active atorvastatin (LIPITOR) 80 MG tablet Take 80 mg by mouth 1 (one) time each day Active Fluticasone Furoate-Vilantero l (Breo Ellipta) 100-25 MCG/INH aerosol powder Inhale Activ e metoprolol succinate XL (TOPROL-XL) 100 MG 24 hr tablet Take 1 tablet (100 mg total) by mouth 1 (one) time each day Do not crush or chew. 4 Active acetaminophen (TYLENOL 8 HOUR) 650 MG 8 hr tablet Take 2 tablets by mouth in the morning and 2 tablets in the evening and 2 tablets before bedtime. 2 Active Trulicity 3 MG/0.5ML solution pen-injector 3 Active Jardiance 10 MG tablet 3 Active Xolair 150 MG/ML solution prefilled syringe 3 Active Xarelto 20 MG tablet 4 Active Entresto 49-51 MG per tablet 3 Active allopurinol (ZYLOPRIM) 100 MG tablet Take 1 tablet by mouth in the morning. 4 Active torsemide (DEMADEX) 20 MG tablet Take 4 tablets (80 mg total) by mouth in the morning and 4 tablets (80 mg total) in the evening. 4 Active Active Problems Problem Noted Date Diagnosed Date Chronic kidney disease, stage 2 (mild) 4 Stage 3a chronic kidney disease 03/20/2023 Acute nontraumatic kidney injury 07/05/2020 Essential (primary) hypertension 01/19/2018 Type 2 diabetes mellitus with diabetic neuropath y 01/19/2018 Hypertension 01/19/2014 Congestive heart failure Overview (03/20/2023): systolic and diastolic heart failure Hypotension Resolved Problems Problem Noted Date Diagnosed Date Resolved Date Hyperlipidemia 01/19/2014 07/05/2020 Cardiomyopathy 01/19/2014 07/05/2020 Immunizations Immunization Administration Dates Next Due Influenza TIV (IM) 12/30/2017 Pneumococcal Conjugate 13-Valent 12/30/2017 Family History Medical History Relation Comments Stroke Father Diabetes Mother Hypertension Mother Relation Status Comments Father Mother Social History Tobacco Use Types Packs/Day Years Used Date Smoking Tobacco: Unknown Sex and Gender Information Value Date Recorded Sex Assigned at Not on file Legal Sex Male 10:09 AM EDT Gender Identity Not on file Sexual Orientation Not on file Last Filed Vital Signs Vital Sign Reading Time Taken Comments Blood Pressure 122/68 12/09/2023 2:20 PM EDT Pulse - - Temperature - - Respiratory Rate - - Oxygen Saturation - - Inhaled Oxygen Concentration - - Weight 154 kg (340 lb) 12/09/2023 2:20 PM EDT Height 177.8 cm (5' 10 ) 12/09/2023 2:20 PM EDT Body Mass Index 48.78 12/09/2023 2:20 PM EDT Plan of Treatment Upcoming Encounters Date Type Department Care Team (Late st Contact Info) Description 12/07/2024 9:50 AM EDT Office Visit [facility], [address] [place] [address] George Syed MD [address] [place] [address] Health Maintenance Due Date Last Done Comments Colorectal Cancer Screening: Annual FOBT 2007 Colorectal Cancer Screening: Colonoscopy 2007 Colorectal Cancer Screening: Sigmoidoscopy 2007 Hepatitis B Vaccine (1 of 3 - Risk 3-dose series) 2018 11/04/2021, 08/07/2021, 07/03/2021 Diabetes: Ophthalmology Exam 07/13/2020 Diabetes: Pedal Pulse Checked 07/13/2020 Diabetes: Sensory Foot Exam 07/13/2020 Diabetes: Visual Foot Exam 07/13/2020 Diabetes: Hemoglobin A1C 04/05/2024 024, 12/11/2023, 09/15/2023, Additional history exists Influenza Vaccine (#1) 2024 3, 12/17/2021, 11/04/2019, Additional history exists Pneumococcal Vaccine: 50+ Years Completed 03/27/2023, 12/30/2017, 09/29/2013 Pneumococcal Vaccine: Peds ( 0 to 5 Years) and At-Risk Patients (6 to 49 Years) Discontinued 03/27/2023, 12/30/2017, 09/29/2013 Procedures Procedure Name Priority Date/Time Associated Diagnosis Comments HEMOGLOBIN A1C Routine 12/11/2023 1:43 PM EDT Chronic kidney disease, stage 2 (mild) Essential (primary) hypertension Congestive heart failure, not otherwise specified (HCC) Type 2 diabetes mellitus with diabetic neuropathy, not otherwise specified (HCC) from Last 3 Months or Most Recently Relevant to Health Maintenance Results * (ABNORMAL) Hemoglobin A1c (12/11/2023 1:43 PM EDT) Hemoglobin A1C 9.2(H) 4.8 - 5.6 % [facility] Comment: Prediabetes: 5.7 - 6.4 Diabetes: >6.4 Glycemic control for adults with diabetes: <7.0 Blood specimen (specimen) Venous blood / Unknown 12/11/2023 1:43 PM EDT 12/11/2023 Leonid CABALLERO LAB BLOOD ORDERABLES Final Re sult [facility] [address] [place] [address] from Last 3 Months or Most Recently Relevant to Health Maintenance Insurance [employer] [facility] ([id number]) [facility] ([id number]) Care Teams Perinatal Nurse Relationship Specialty Start Date End Date Linh Cook MD [address] [place] [phone] PCP - General Internal Medicine 06/05/20
--- OUTSIDE RECORDS SUMMARY | 2024-10-26 13:54 | XMS_ITS | Encounter Summary ---
Author Organization [employer] Address [address] [facility] 7[address] [place] [address] Care Team Providers Care User Support Analyst Name Role Phone Linh Cook MD Primary Care Provide r Reason for Visit * Reason Onset Date Comments Medication Question 10/21/2024 Encounter Details Date Type Department Care Team ([facility] Contact Info) Description 10/21/2024 Telephone [facility] MEDICINE [address], [place] [phone] Linh Cook MD [address] [place] [address] Medication Question Social History Tobacco Use Types Packs/Day Years Used Date Smoking Tobacco: Never Passive Smoke Exposure: Never Smokeless Tobacco: Never Alcohol Use Standard Drinks/Week Comments Never 0 (1 standard drink = 0.6 oz pur e alcohol) Depression Answer Date Recorded Patient Health Questionnaire-9 Score 13 10/14/2024 Patient Health Questionnaire-9 Score 13 10/14/2024 Last PHQ-9: Questionnaire Data Not on file 0 10/14/2024 Housing Stability Answer Date Recorded What is your housing situation today? I have gavino richard 10/14/[address] you li ve. Do you have problems with any of the following? None of the above 10/14/2024 Food Insecurity Answer Date Recorded Within the past 12 months, y ou worried that your food would run out before you got money to buy more: Sometimes True 2024 Within the past 12 months,th e food you bought just didn't last and you didn't have enough money to get more: Not on file 10/14/2024 Transportation Answer Date Recorded In the past 12 months, has l ack of transportation kept you from medical appts, meetings, work or from getting things needed for daily living? Yes, it has kept me from medical appointments or getting medications. 10/14/2024 Utilities Answer Date Recorded In the past 12 months, has t he electric, gas, oil or water company threatened to shut off services in your home? No 10/14/2024 Depression Answer Date Recorded Patient Health Questionnaire-2 Score 4 10/14/2024 Internet Access Answer Date Recorded Internet Access Q1 Yes 10/14/2024 Internet Access Q2 Not on file 10/14/2024 Sex and Gender Information Value Date Recorded Sex Assigned at Male 01/06/2022 10:35 AM EDT Legal Sex Male 10:35 AM EDT Gender Identity Male 01/06/2022 10:35 AM EDT Sexual Orientation Straight 01/06/2022 10 :35 AM EDT documented as of this encounter Miscellaneous Notes * Telephone Encounter - Mahnaz Delacruz RN - 10/24/2024 9:56 AM EDT TC returned to [facility] RN however unavailable [facility] RN to do med rec currently, will call back at a better time. Direct ext provided. * Telephone Encounter - Paige Ceja - 10/21/2024 4:20 PM EDT Tc from visiting nurse Jim with [facility] requesting a call back for medication reconciliation. Contact [phone] documented in this encounter Plan of Treatment Upcoming Encounters Date Type Department Care Team (Late st Contact Info) Description 12/05/2024 10:15 AM EDT Office Visit [facility] MEDICINE [address], [place] [phone] Linh Cook MD [address] [place] [address] documented as of this encounter Visit Diagnoses Not on filedocumented in this encounter Additional Health Concerns Assessment Noted Time PHQ-9 Depression Total Score: 13 025 1:43 PM EDT documented as of this encounter Care Teams User Support Analyst Relationship Specialty Start Date End Date Linh Cook MD [address] [place] [address] PCP - General Family Medicine 06/22/18 [facility] 06/10/23 documented as of this encounter
--- OUTSIDE RECORDS SUMMARY | 2024-10-26 13:54 | XMS_ITS | Encounter Summary ---
Author Organization [employer] Address [address] [place] [address] Care Team Providers Care Child And Family Therapist Name Role Phone Linh Cook MD Primary Care Provide r Encounter Details Date Type Department Care Team (Latest Contact Info) Description 09/13/2024 Lab Requisition [facility] - Main Lab [address] [facility] [place] [phone] My Oconnor MD [address] [place] [id number] Type 2 diabetes mellitus without complications (CMS/HCC V24, CMS/HCC V28); Weakness; Heart failure, unspecified (CMS/HCC V24, CMS/HCC V28); Vitamin D deficiency, unspecified Social History Tobacco Use Types Packs/Day Years Used Date Smoking Tobacco: Former Smokeless Tobacco: Never Alcohol Use Standard Drinks/Week Comments No 0 (1 standard drink = 0.6 oz pur e alcohol) Sex and Gender Information Value Date Recorded Sex Assigned at Male 04/01/2024 3:14 PM EST Legal Sex Male 5:37 AM EST Gender Identity Male 04/01/2024 3:14 PM EST Sexual Orientation Choose not to disclose 2024 3:16 PM EST documented as of this encounter Functional Status * Are you deaf or do you have serious difficulty hearing? Answer Date of Assessment Author No 05/09/2024 5:28 PM EST Carolyn Gong RN * Are you blind or do you have serious difficulty seeing, even when wearing glasses? Answer Date of Assessment Author No 05/09/2024 5:28 PM EST Carolyn Gong RN * Do you have serious difficulty walking or climbing stairs? Answer Date of Assessment Author No 05/09/2024 5:28 PM Carolyn Arellano RN * Do you have serious difficulty dressing or bathing? Answer Date of Assessment Author No 05/09/2024 5:28 PM Carolyn Arellano RN * Because of a physical, mental, or emotional condition, do you have serious difficulty doing errandsalone such as visiting the doctor? Answer Date of Assessment Author No 05/09/2024 5:28 PM Carolyn Arellano RN documented as of this encounter Mental Status * Because of a physical, mental, or emotional condition, do you have serious difficulty concentrating, remembering, or making decisions? (5 years old or older) Answer Entry Date Author No 05/09/2024 5:28 PM Carolyn Arellano RN documented in this encounter Plan of Treatment Not on file documented as of this encounter Procedures Procedure Name Priority Date/Time Associated Diagnosis Comments LIPID PANEL WITH REFLEX TO DIRECT LDL Routine 09/13/2024 4:39 AM EDT Type 2 diabetes mellitus without complications (CMS/HCC V24, CMS/[facility] V28) Weakness Heart failure, unspecified (CMS/HCC V24, CMS/HCC V28) Vitamin D deficiency, unspecified VITAMIN D 25 HYDROXY Routine 09/13/2024 4:39 AM EDT Type 2 diabetes mellitus without complications (CMS/HCC V24, CMS/HCC V28) Weakness Heart failure, unspecified (CMS/HCC V24, CMS/HCC V28) Vitamin D deficiency, unspecified COMPLETE BLOOD COUNT Routine 09/13/2024 4:39 AM EDT Type 2 diabetes mellitus without complications (CMS/HCC V24, CMS/HCC V28) Weakness Heart failure, unspecified (CMS/HCC V24, CMS/HCC V28) Vitamin D deficiency, unspecified THYROID STIMULATING HORMONE Routine 09/13/2024 4:39 AM EDT Type 2 diabetes mellitus without complications (CMS/HCC V24, CMS/HCC V28) Weakness Heart failure, unspecified (CMS/HCC V24, CMS/HCC V28) Vitamin D deficiency, unspecified HEMOGLOBIN A1C Routine 09/13/2024 4:39 AM EDT Type 2 diabetes mellitus without complications (CMS/HCC V24, CMS/HCC V28) Weakness Heart failure, unspecified (CMS/HCC V24, CMS/HCC V28) Vitamin D deficiency, unspecified FOLATE Routine 09/13/2024 4:39 AM EDT Type 2 diabetes mellitus without complications (CMS/HCC V24, CMS/HCC V28) Weakness Heart failure, unspecified (CMS/HCC V24, CMS/HCC V28) Vitamin D deficiency, unspecified VITAMIN B12 Routine 09/13/2024 4:39 AM EDT Type 2 diabetes mellitus without complications (CMS/HCC V24, CMS/HCC V28) Weakness Heart failure, unspecified (CMS/HCC V24, CMS/HCC V28) Vitamin D deficiency, unspecified COMPREHENSIVE METABOLIC PANEL Routine 09/13/2024 4:39 AM EDT Type 2 diabetes mellitus without complications (CMS/HCC V24, CMS/HCC V28) Weakness Heart failure, unspecified (CMS/HCC V24, CMS/HCC V28) Vitamin D deficiency, unspecified documented in this encounter Results * (ABNORMAL) Lipid panel with reflex to direct LDL (09/13/2024 4:39 AM EDT) Cholesterol 104 0 - 200 mg/dL LAB CHEMISTRY METHOD 09/13/2024 9:34 AM [facility] Triglycerides 131 0 - 150 mg/dL LAB CHEMISTRY METHOD 09/13/2024 9:34 AM [facility] HDL 36(L) >=40 mg/dL LAB CHEMISTRY METHOD 09/13/2024 9:34 AM [facility] LDL Calculated 42 0 - 100 mg/dL LAB CHEMISTRY METHOD 09/13/2024 9:34 AM [facility] VLDL Cholesterol Jay 26.2 mg/dL LAB CHEMISTRY METHOD 09/13/2024 9:34 AM [facility] Non HDL Chol. (LDL+VLDL) 68 <145 mg/dL LAB CHEMISTRY METHOD 09/13/2024 9:[address] [facility] Chol/HDL Ratio 2.9 0.0 - 4.4 LAB CHEMISTRY METHOD 09/13/2024 9:[address] [facility] Blood Venous blood specimen / Unknown Venipuncture / Unknown 09/13/2024 4:39 AM EDT 09/13/2024 8:20 AM EDT us My Oconnor MD LAB BLOOD ORDERABLES Final Resu lt [facility] [address] [place] [address], [place] [phone] * Vitamin B12 (09/13/2024 4:39 AM EDT) Vitamin B-12 668 250 - 900 pcg/mL LAB CHEMISTRY METHOD 09/13/2024 9:[address] [facility] Blood Venous blood specimen / Unknown Venipuncture / Unknown 09/13/2024 4:39 AM EDT 09/13/2024 8:20 AM EDT us My Oconnor MD LAB BLOOD ORDERABLES Final Resu lt [facility] [address] [place] [address], [place] [phone] * Folate (09/13/2024 4:39 AM EDT) Folate 7.6 2.8 - 17.0 ng/ml LAB CHEMISTRY METHOD 09/13/2024 9:[address] [facility] Blood Venous blood specimen / Unknown Venipuncture / Unknown 09/13/2024 4:39 AM EDT 09/13/2024 8:20 AM EDT us My Oconnor MD LAB BLOOD ORDERABLES Final Resu lt Performing Organization Address City/[facility]/ZIP Co de Phone Number [facility] [address] [place] [address], [place] [phone] * (ABNORMAL) Hemoglobin A1c (09/13/2024 4:39 AM EDT) Hemoglobin A1C 10.0(H) <6.5 % LAB CHEMISTRY METHOD 09/13/2024 2:[address] [facility] Mean Bld Glu Estim. 240 mg/dL LAB CHEMISTRY METHOD 09/13/2024 2:[address] [facility] Blood Venous blood specimen / Unknown Venipuncture / Unknown 09/13/2024 4:39 AM EDT 09/13/2024 8:20 AM EDT us My Oconnor MD LAB BLOOD ORDERABLES Final Resu lt Performing Organization Address City/[facility]/ZIP Co de Phone Number [facility] [address] [place] [address], [place] [phone] * (ABNORMAL) Vitamin D 25 hydroxy (09/13/2024 4:39 AM EDT) Pathologist [facility] Vit D, 25-Hydroxy 25.3(L) 30.0 - 80.0 ng/mL LAB CHEMISTRY METHOD 09/13/2024 10:[address] [facility] Blood Venous blood specimen / Unknown Venipuncture / Unknown 09/13/2024 4:39 AM EDT 09/13/2024 8:20 AM EDT us My Oconnor MD LAB BLOOD ORDERABLES Final Resu lt [facility] [address] [place] [address], [place] [phone] * Thyroid stimulating hormone (09/13/2024 4:39 AM EDT) [facility] TSH 3.20 0.40 - 4.00 mcIU/mL LAB CHEMISTRY METHOD 09/13/2024 10:32 AM [facility] Blood Venous blood specimen / Unknown Venipuncture / Unknown 09/13/2024 4:39 AM EDT 09/13/2024 8:20 AM EDT us My Oconnor MD LAB BLOOD ORDERABLES Final Resu lt [facility] [address] [place] [address], * (ABNORMAL) Comprehensive metabolic panel (09/13/2024 4:39 AM EDT) [facility] Sodium 135 133 - 145 mmol/L LAB CHEMISTRY METHOD 09/13/2024 9:56 AM [facility] Potassium 4.7 3.5 - 5.5 mmol/L LAB CHEMISTRY METHOD 09/13/2024 9:56 AM [facility] Chloride 97 96 - 110 mmol/L LAB CHEMISTRY METHOD 09/13/2024 9:56 AM [facility] CO2 36(H) 21 - 32 mmol/L LAB CHEMISTRY METHOD 09/13/2024 9:56 AM [facility] Anion Gap 2(L) 3 - 11 LAB CHEMISTRY METHOD 09/13/2024 9:56 AM [facility] Glucose 125(H) 70 - 100 mg/dL LAB CHEMISTRY METHOD 09/13/2024 9:56 AM [facility] BUN 22 5 - 25 mg/dL LAB CHEMISTRY METHOD 09/13/2024 9:56 AM [facility] Creatinine 0.85 0.70 - 1.30 mg/dL LAB CHEMISTRY METHOD 09/13/2024 9:56 AM [facility] eGFR 96 >=60 mL/min/1. 73m2 LAB CHEMISTRY METHOD 09/13/2024 9:56 AM [facility] Comment:Calculation based on the Chronic Kidney Disease Epidemiology Collaboration (CKD-EPI) equation refit without adjustment for race. BUN/Creatinine Ratio 25.9 LAB CHEMISTRY METHOD 09/13/2024 9:56 AM [facility] Calcium 8.2(L) 8.5 - 10.5 mg/dL LAB CHEMISTRY METHOD 09/13/2024 9:56 AM [facility] AST (SGOT) 23 10 - 42 unit/L LAB CHEMISTRY METHOD 09/13/2024 9:56 AM [facility] ALT (SGPT) 23 10 - 60 unit/L LAB CHEMISTRY METHOD 09/13/2024 9:56 AM [facility] Alkaline Phosphatase 117 42 - 121 unit/L LAB CHEMISTRY METHOD 09/13/2024 9:56 AM [facility] Total Protein 6.5 6.0 - 8.0 g/dL LAB CHEMISTRY METHOD 09/13/2024 9:56 AM [facility] Albumin 2.4(L) 3.2 - 5.0 g/dL LAB CHEMISTRY METHOD 09/13/2024 9:56 AM [facility] Total Bilirubin 0.4 0.0 - 1.4 mg/dL LAB CHEMISTRY METHOD 09/13/2024 9:56 AM [facility] Blood Venous blood specimen / Unknown Venipuncture / Unknown 09/13/2024 4:39 AM EDT 09/13/2024 8:20 AM EDT us My Oconnor MD LAB BLOOD ORDERABLES Final Resu lt [facility] [address] [place] [address], * (ABNORMAL) Complete blood count (09/13/2024 4:39 AM EDT) [facility] WBC 8.2 4.8 - 10.8 K/mcL LAB HEMETOLOGY METHOD 09/13/2024 9:10 AM [facility] RBC 4.40(L) 4.50 - 5.50 M/mcL LAB HEMETOLOGY METHOD 09/13/2024 9:10 AM [facility] Hemoglobin 11.8(L) 13.5 - 17.5 g/dL LAB HEMETOLOGY METHOD 09/13/2024 9:10 AM [facility] Hematocrit 40.4(L) 42.0 - 54.0 % LAB HEMETOLOGY METHOD 09/13/2024 9:10 AM [facility] MCV 91.2 79.0 - 98.0 FL LAB HEMETOLOGY METHOD 09/13/2024 9:10 AM [facility] MCH 26.6(L) 27.0 - 32.0 pcg LAB HEMETOLOGY METHOD 09/13/2024 9:10 AM [facility] MCHC 29.2(L) 32.0 - 37.0 g/dL LAB HEMETOLOGY METHOD 09/13/2024 9:10 AM [facility] RDW 15.4(H) 11.0 - 15.0 % LAB HEMETOLOGY METHOD 09/13/2024 9:10 AM [facility] Platelets 364 130 - 400 K/mcL LAB HEMETOLOGY METHOD 09/13/2024 9:10 AM [facility] MPV 9.4 7.0 - 11.0 FL LAB HEMETOLOGY METHOD 09/13/2024 9:10 AM [facility] NRBC 0.0 <1.0 % LAB HEMETOLOGY METHOD 09/13/2024 9:10 AM [facility] NRBC Absolute 0.00 <0.10 K/mcL LAB HEMETOLOGY METHOD 09/13/2024 9:10 AM EDT [facility] Blood Venous blood specimen / Unknown Venipuncture / Unknown 09/13/2024 4:39 AM EDT 09/13/2024 8:20 AM EDT us My Oconnor MD LAB BLOOD ORDERABLES Final Resu lt [facility] [address] [place] [address], documented in this encounter Visit Diagnoses Diagnosis Type 2 diabetes mellitus without complications (CMS/HCC V24, CMS/[facility] V28) Weakness Other malaise and fatigue Heart failure, unspecified (CMS/HCC V24, CMS/[facility] V28) Heart failure, unspecified Vitamin D deficiency, unspecified documented in this encounter Additional Health Concerns Infection Onset Date Last Indicated Resolved Time ESBL 07/27/2024 07/27/2024 documented as of this encounter Care Teams Child And Family Therapist Relationship Specialty Start Date End Date Linh Cook MD [address] [phone] PCP - General Internal Medicine 11/05/20 documented as of this encounter
== END 2024-10-26 13:47 | disposition home or self-care (01) ==
LOC: HO.ENCR 13:02
PROVIDERS: PCP Internal Medicine; Visit Provider Internal Medicine Endocrinology, Diabetes & Metabolism
DX: E11.65 Type 2 diabetes mellitus with hyperglycemia (principal)
CPT/HCPCS: 99214; G2211

== ENCOUNTER → 2024-10-26 13:01 | Outpatient (BNVA) | payer OTHER, SELFPAY | PROVIDERS: PCP Internal Medicine; Visit Provider Internal Medicine Endocrinology, Diabetes & Metabolism | DX: E11.65 Type 2 diabetes mellitus with hyperglycemia (principal) | CPT/HCPCS: 82947; 83036; 99212 ==

== ENCOUNTER 2024-11-28 13:53 | Outpatient (AMB) | payer OTHER, SELFPAY ==
--- NOTE | 2024-11-28 14:39 | MHC.AMDMED ---
Intake Intake Visit Reasons: 60 MIN Guide Plant Required: Yes Guide Plant Language: Slovenian Accompanied by: Self / Same As Patient Allergies lisinopril Adverse Reaction (Intermediate, Verified 10/26/24 13:12) cough HPI Comprehensive Diabetes Asmnt Most Recent Diabetes Results: Hemoglobin A1c 9.6 % 08/11/19 Microalb/Creat Ratio, (<30) 28.1 ug/mg cr 05/09/24 Cholesterol, (<200) 161 mg/dL 10/05/23 HDL Cholesterol, (>40) 41 mg/dL 10/05/23 Triglycerides, (<150) 100 mg/dL 10/05/23 Creatinine, (0.5-1.4) 1.34 mg/dL 05/09/24 BUN, (9-16) 30 mg/dL H 05/09/24 Sodium, (135-145) 144 mmol/L 05/09/24 Potassium, (3.3-5.1) 3.9 mmol/L 05/09/24 Chloride, (96-108) 102 mmol/L 05/09/24 Carbon Dioxide, (22-29) 32 mmol/L H 05/09/24 Calcium, (8.4-10.2) 8.9 mg/dL 05/09/24 AST, (5-37) 31 U/L 01/18/24 ALT, (0-40) 26 U/L 01/18/24 Total Protein, (6.5-8.0) 7.4 g/dL 01/18/24 Albumin, (3.5-5.0) 3.9 g/dL 01/18/24 [facility] Medical History (Updated 04/19/24 @ 16:38 by MAGO DoranC) Tubular adenoma Vitamin D deficiency Hypoxia Paroxysmal atrial fibrillation Biventricular ICD (implantable cardioverter-defibrillator) in place Chest pain Congestive heart failure (CHF) Dyslipidemia Morbid obesity Diabetic neuropathy associated with type 2 diabetes mellitus FDC (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 Social History Household Members: Friend(s) and Other Household Members Other:: sober living home Housing: House Housing Other:: sober house-rents room Are you a primary animal care service worker to a significant other at home: No Do you presently have visiting nurse or other home services: Yes ([employer] 3x week) Alcohol intake: former Patient Tobacco Use Status: Former Tobacco user Tobacco use type: Cigarette Years Smoked: 40 Substance Use Type: Crack/Cocaine, Former Substance User, Heroin, Marijuana and Prescription Drugs Advance Directives Date on File: 07/05/20 service: No Current occupational status: unemployed Assessment & Plan Assessment & Plan (1) Diabetes type 2, uncontrolled: Code(s): E11.65 - Type 2 diabetes mellitus with hyperglycemia Qualifiers: Glycemic state: with hyperglycemia Qualified Code(s): E11.65 - Type 2 diabetes mellitus with hyperglycemia Plan: Personal Continuous Glucose Monitor: Patient was using T slim with U 500 which was discontinued approximately 6 months ago due to ineffective treatment. Patients CGM information reviewed, Pt uses Home 3+ sensor with [place] Patient has continued insulin pump therapy He is currently on Humulin U 500 125 units in the a.m., he reports that he generally takes dose between 9-10 am, then between 60-80 units at 6-7pm If glucose continues to be high at 10:30-11pm he will take another 10 units Reports when his glucose levels are running high at night he experiences leg pain from his neuropathy Currently he has open wound on left foot, he also has new wound on right ankle. At last visit with Dr. Encarnacion there was a referral for patient to be seen at the wound clinic. Patient has not made an appointment yet, patient given 2. Wound clinic in instructed to contact to make appointment. Discuss the risk of amputation when wounds are left untreated and at our high risk for infection Reviewed injection sites with patient, patient reports he injects in right upper abdomen frequently. Assessed site use frequently for injection. It appeared discolored, and tissue felt hard. Instructed patient to use sites on lower abdomen for injection to see if insulin absorption improves. In addition discussed with patient the importance of reducing carbohydrate intake, avoid fruit juice, and syrup with breakfast foods. Patient reports his [employer] and his do most of his food shopping and meal prep. Patient given carb lists to share with with them, so that they can learn which foods contain carbohydrates Patient able to insert sensor independently at home without issue.? Patient will follow-up 2 weeks for glucose review, if glucose has not improved we may consider switching to injecting 3 times a day Patient is not interested at this time in resuming insulin pump therapy Portions of this note were created using voice recognition software, please excuse any words or phrases that may have been misinterpreted. Coding Level of Care Code Est Pt Level 1 (16656) Diagnoses Diabetes type 2, uncontrolled E11.65 Glycemic state: with hyperglycemia
--- OUTSIDE RECORDS SUMMARY | 2024-11-28 16:23 | XMS_ITS | Encounter Summary ---
Demographics Address [address] [facility] [address] [place] [address] Home Phone Preferred Language es Marital Status Single
--- OUTSIDE RECORDS SUMMARY | 2024-11-28 16:23 | XMS_ITS | Encounter Summary ---
Demographics Address [address] [facility] [address] [place] [address] Mobile Phone
--- OUTSIDE RECORDS SUMMARY | 2024-11-28 16:23 | XMS_ITS ---
Encounter Summary Created on: November 28, 2024
--- OUTSIDE RECORDS SUMMARY | 2024-11-28 16:24 | XMS_ITS | Encounter Summary ---
Author Organization [facility], [place] [id number]
== END 2024-11-28 14:49 | disposition home or self-care (01) ==
LOC: HO.ENCR 13:54
PROVIDERS: PCP Internal Medicine; Visit Provider Registered Nurse Diabetes Educator
DX: E11.65 Type 2 diabetes mellitus with hyperglycemia (principal)

== ENCOUNTER → 2024-11-28 13:53 | Outpatient (BNVA) | payer OTHER, SELFPAY | PROVIDERS: PCP Internal Medicine; Visit Provider Registered Nurse Diabetes Educator | DX: E11.65 Type 2 diabetes mellitus with hyperglycemia (principal) | CPT/HCPCS: 99211 ==

== ENCOUNTER 2024-12-06 13:51 | Outpatient (AMB) | payer OTHER, SELFPAY ==
--- NOTE | 2024-12-06 14:05 | MHC.OFFVIS ---
Vital Signs 12/06/24 14:15 BMI Reason not done Patient refused/unable BP 90/58 L Blood Pressure Location Rt brachial Position Sitting Pulse 88 Pulse Source Pulse Oximeter Pulse Oximetry (%) 95 Oxygen Delivery Method Room Air Intake Visit Reasons: DM Intake Note: Patient present today to follow up on Type 2 Diabetes Mellitus. Last Diabetic Eye exam: Due, requesting referral Last Podiatry Visit: Does not see a Shop Firer/Fireman Random Glucose: 305 mg/dl Hgb A1C: 9.4% 10/26/2024 Plant Culture Manager Required: Yes Plant Culture Manager Language: Supervisor Hanging And Trimming Services: Plant Culture Manager Present Plant Culture Manager Name: [facility] [employer]- [employer] Information Interpreted: non-clinical & clinical Accompanied by: Self / Same As Patient Allergies lisinopril Adverse Reaction (Intermediate, Verified 12/06/24 14:14) cough Medication List - Last Reconciled 12/06/24 by Yang Encarnacion MD acetaminophen 1,000 mg (2 x 500 mg) PO TID PRN albuterol sulfate 90 mcg/actuation 2 puffs inhalation Q4-6H PRN atorvastatin 40 mg PO DAILY BD Insulin Syringe U-500 (insulin U-500 syringe-needle) tid NS blood sugar diagnostic (FreeStyle Lite Strips) As directed checks 4 X/day blood-glucose meter (FreeStyle Lite Meter kit) As directed checks 4 X/day colchicine mg PO empagliflozin (Jardiance) 10 mg PO DAILY fluticasone propionate 50 mcg/actuation 1 spray intranasal BID FreeStyle Home 3 Plus Sensor (blood-glucose sensor) As directed NS FreeStyle Home 3 [place] (blood-glucose,vice president sales,cont) As directed NS gabapentin 800 mg PO TID Humulin R U-500 (Conc) Insulin (insulin regular hum U-500 conc) 100-120 units before breakfast 40-50 units before supper subcutaneously 30 days NS metolazone 5 mg PO MOWEFR 30 days metoprolol succinate ER 100 mg PO DAILY omeprazole 40 mg PO DAILY prednisone 5 mg PO DIRECTED rivaroxaban (Xarelto) 20 mg PO QPM sacubitril-valsartan 49-51 mg (Entresto) 1 tab PO BID tirzepatide (Mounjaro) 7.5 mg (0.5 mL) subcut QWEEK torsemide 20 mg PO BID HPI Comments Details: Patient is a 64 year old male with DM type 2 diagnosed who presents for continued management of diabetes. His insulin pump has been discontinued. A1C of 8.5% was prior to going on the pump and at which time he was taking 120 units of U 500 in the morning and 40 for the dinner meal. He had not done well on an insulin pump and had difficulty wearing it at nighttime and was persistently taking off the pump each night. Pump was discontinued Micro and macrovascular complications: nephropathy, neuropathy, PAD, chf, cardiomyopathy He has sleep apnea on BiPAP, has defibrillator Sees cardiology regularly Diabetes medications: ?Now off pump Humulin U 500 AM. 80-80-80 Mounjaro 7. 5mg Jardiance 10 mg daily average glucose: 276 14 day continuous glucose monitor report reviewed Glucose Managment indicator 9.9 % Days with CGM data 97 % TIme in ranges: 61 % very high (above 250) 17 % high ?(181-250) 21 % in range ?(70-180] 1 % low (69-55) 0 % ?very low (below 54) Interpretation glucose running higher than target. 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 acute on chronic heart failure [facility] Medical History (Updated 04/19/24 @ 16:38 by MAGO DoranC) Tubular adenoma Vitamin D deficiency Hypoxia Paroxysmal atrial fibrillation Biventricular ICD (implantable cardioverter-defibrillator) in place Chest pain Congestive heart failure (CHF) Dyslipidemia Morbid obesity Diabetic neuropathy associated with type 2 diabetes mellitus senior care (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 Social History Household Members: Friend(s) and Other Household Members Other:: sober living home Housing: House Housing Other:: sober house-rents room Are you a primary acute care clinical nurse specialist to a significant other at home: No Do you presently have visiting nurse or other home services: Yes (REAL ESTATE ACQUISITION ANALYST 3x week) Alcohol intake: former Patient Tobacco Use Status: Former Tobacco user Tobacco use type: Cigarette Years Smoked: 40 Substance Use Type: Crack/Cocaine, Former Substance User, Heroin, Marijuana and Prescription Drugs Advance Directives Date on File: 07/05/20 service: No Current occupational status: unemployed Physical Exam Vital Signs: Last Vital Signs Pulse 88 12/06/24 14:15 BP 90/58 L 12/06/24 14:15 Pulse Ox 95 12/06/24 14:15 Oxygen Delivery Method Room Air 12/06/24 14:15 Const Other: Absence of Cushingoid features. Absence of acromegalic features. Neck exam reveals nl size thyroid about 15 gms. No thyroid nodules palpable. Lungs CTA. Heart S1 S2, Reg R/R. No M/R G. Skin exam reveals absence of vitiligo or acanthosis nigricans. No edema Visual exam of foot performed. R ankle ulceration . No onychomycosis, no callouses. Sensation diminshed to monofilament exam. Vibratory sensation is diminished with 128 Hz tuning fork. Results Reviewed Results Reviewed: Laboratory Last Values Glucose (Clinic) 305 mg/dL (60-115) H 12/06/24 14:26 Assessment & Plan Assessment & Plan (1) Diabetes type 2, uncontrolled: Code(s): E11.65 - Type 2 diabetes mellitus with hyperglycemia Category: Medical Qualifiers: Glycemic state: with hyperglycemia Qualified Code(s): E11.65 - Type 2 diabetes mellitus with hyperglycemia Plan: This 62-year-old female with history of type 2 diabetes and insulin resistance being treated with U-500 insulin and JayyunGunner cavazos with poor glycemic control and known microvascular and macrovascular complications namely Nephropathy neuropathy, CAD status post stent. Plan is to to have the patient follow-up with the clinical nurse educator next few weeks. We will increase the U 500 to 100- units prior to breakfast, 80 units pre lunch and 40 units pre lunch . We will check lipid profile. We will make another urgent appointment at the wound clinic for right ankle wound Coding Level of Care Code Est Pt Level 4 (88761) Complex EM visit Add On G2211 Diagnoses Diabetes type 2, uncontrolled E11.65 Glycemic state: with hyperglycemia
[2024-12-06 14:15] VITALS: BP 90/58; PULSE 88; O2SAT 95
[2024-12-06 14:31] LABS: Glucose, Whole Blood 305 mg/dL (60-115)
--- OUTSIDE RECORDS SUMMARY | 2024-12-06 15:11 | XMS_ITS | Encounter Summary ---
Author Organization [employer] Address [address] [facility] [address] [place] [address] Care Team Providers Care Sprinkler Helper Name Role Phone Linh Coko MD Primary Care Provide r Reason for Visit * Reason Onset Date Comments verbal order 06/03/2024 Encounter Details Date Type Department Care Team ([facility] st Contact Info) Description 06/03/2024 Telephone [facility] MEDICINE [address] [place], [place] [phone] Linh Cook MD [address] [place] [address] verbal order Social History Tobacco Use Types Packs/Day Years Used Date Smoking Tobacco: Never Passive Smoke Exposure: Never Smokeless Tobacco: Never Alcohol Use Standard Drinks/Week Comments Never 0 (1 standard drink = 0.6 oz pur e alcohol) Depression Answer Date Recorded Patient Health Questionnaire-9 Score 13 09/15/2023 Patient Health Questionnaire-9 Score 13 09/15/2023 Last PHQ-9: Questionnaire Data Not on file 0 09/15/2023 Housing Stability Answer Date Recorded What is your housing situation today? I have gavino richard 09/04/[address] you li ve. Do you have problems with any of the following? None of the above 09/04/2023 Food Insecurity Answer Date Recorded Within the past 12 months, y ou worried that your food would run out before you got money to buy more: Never True 09/04/2023 Within the past 12 months,th e food you bought just didn't last and you didn't have enough money to get more: Never True Transportation Answer Date Recorded In the past 12 months, has l ack of transportation kept you from medical appts, meetings, work or from getting things needed for daily living? No 09/04/2023 Utilities Answer Date Recorded In the past 12 months, has t he electric, gas, oil or water company threatened to shut off services in your home? No 09/04/2023 Depression Answer Date Recorded Patient Health Questionnaire-2 Score 6 09/15/2023 Internet Access Answer Date Recorded Internet Access Q1 No 11/06/2023 Internet Access Q2 I cannot afford it 11/06/2023 Sex and Gender Information Value Date Recorded Sex Assigned at Male 01/06/2022 10:35 AM EDT Legal Sex Male 10:35 AM EDT Gender Identity Male 01/06/2022 10:35 AM EDT Sexual Orientation Straight 01/06/2022 10 :35 AM EDT documented as of this encounter Miscellaneous Notes * Telephone Encounter - Patrica Prater RN - 06/03/2024 2:30 PM EDT TC placed to Mayra from [facility] [phone] regarding below message. RN left VM for Ileana to return a call to the Red team nurses. Myara to F/U PRN. * Telephone Encounter - Mayra Duarte - 06/03/2024 2:04 PM EDT TC from Mayra with [facility] requesting verbal order for to continue skill nursing. documented in this encounter Plan of Treatment Upcoming Encounters Date Type Department Care Team (Late st Contact Info) Description 02/15/2025 10:45 AM EST Office Visit [facility] MEDICINE [address], [place] [phone] Linh Cook MD [address] [place] [address] documented as of this encounter Visit Diagnoses Not on filedocumented in this encounter Additional Health Concerns Assessment Noted Time PHQ-9 Depression Total Score: 13 024 2:02 PM EDT documented as of this encounter Care Teams Sprinkler Helper Relationship Specialty Start Date End Date Linh Cook MD [address] [place] [address] PCP - General Family Medicine 06/22/18 [facility] 06/10/23 documented as of this encounter
--- OUTSIDE RECORDS SUMMARY | 2024-12-06 15:11 | XMS_ITS | Encounter Summary ---
Author Organization [employer] Address [address] [place] [address] Care Team Providers Care Forging Press Operator Name Role Phone Linh Cook MD Primary Care Provide r Encounter Details Date Type Department Care Team (Late st Contact Info) Description 09/02/2024 Lab Requisition [facility] - Main Lab [address] [facility] [place] [address] Reji Sterling MD [address] [place] [address] [address] [place], [phone] Type 2 diabetes mellitus without complications (CMS/HCC V24, CMS/HCC V28) Social History Tobacco Use Types Packs/Day Years [...] on file documented as of this encounter Visit Diagnoses Diagnosis Type 2 diabetes mellitus without complications (CMS/[facility] V24, CMS/[facility] V28) documented in this encounter Additional Health Concerns Infection Onset Date Last Indicated Resolved Time ESBL 07/27/2024 10/26/2024 documented as of this encounter Care Teams Forging Press Operator Relationship Specialty Start Date End Date Linh Cook MD [address] [place] [phone] PCP - General Internal Medicine 11/05/20 documented as of this encounter
--- OUTSIDE RECORDS SUMMARY | 2024-12-06 15:11 | XMS_ITS | Encounter Summary ---
Author Organization [employer] Address [address] [place] [address] Care Team Providers Care Intelligence Analyst Name Role Phone Linh Cook MD Primary Care Provide r Encounter Details Date Type Department Care Team (Late st Contact Info) Description 08/17/2024 Lab Requisition [facility] - Main Lab [address] [facility] [place] [address] Reji Sterling MD [address] [place] [address] [address] [place], [phone] Gout, unspecified Social History Tobacco Use Types Packs/Day [...] Date Author No 05/09/2024 5:28 PM Carolyn Arellaon RN documented in this encounter Plan of Treatment Not on file documented as of this encounter Procedures Procedure Name Priority Date/Time Associated Diagnosis Comments URIC ACID Routine 08/17/2024 6:07 AM EDT Gout, unspecified documented in this encounter Results * Uric acid (08/17/2024 6:07 AM EDT) Uric Acid 5.6 3.7 - 9.2 mg/dL LAB CHEMISTRY METHOD 08/17/2024 12:[address] [facility] Blood Venous blood specimen / Unknown Venipuncture / Unknown 08/17/2024 6:07 AM EDT 08/17/2024 9:53 AM EDT us Reji Sterling MD LAB BLOOD ORDERABLES Final Resul t [facility] [address] [place] [address], documented in this encounter Visit Diagnoses Diagnosis Gout, unspecified documented in this encounter Additional Health Concerns Infection Onset Date Last Indicated Resolved Time ESBL 07/27/2024 10/26/2024 documented as of this encounter Care Teams Intelligence Analyst Relationship Specialty Start Date End Date Linh Cook MD [address] [place] [phone] PCP - General Internal Medicine 11/05/20 documented as of this encounter
--- OUTSIDE RECORDS SUMMARY | 2024-12-06 15:11 | XMS_ITS | Encounter Summary ---
Author Organization [employer] Address [address] [place] [address] Care Team Providers Care Farm Marketer Name Role Phone Linh Cook MD Primary Care Provide r Encounter Details Date Type Department Care Team (Late st Contact Info) Description 07/16/2024 Lab Requisition [facility] - Main Lab [address] [facility] [place] [address] Reji Sterling MD [address] [place] [address] [address] [place], [phone] Acute kidney failure, unspecified (CMS/HCC V24); Cellulitis of left upper limb Social History Tobacco Use Types Packs/Day Years [...] 05/09/2024 5:28 PM Carolyn Arellano RN * Are you blind or do [...] Procedure Name Priority Date/Time Associated Diagnosis Comments COMPLETE BLOOD COUNT Routine 07/18/2024 6:15 AM EDT Acute kidney failure, unspecified ([facility] V24) Cellulitis of left upper limb BASIC METABOLIC PANEL Routine 07/18/2024 6:15 AM EDT Acute kidney failure, unspecified ([facility] V24) Cellulitis of left upper limb documented in this encounter Results * (ABNORMAL) Basic metabolic panel (07/18/2024 6:15 AM EDT) Sodium 136 133 - 145 mmol/L LAB CHEMISTRY METHOD 07/18/2024 11:32 AM [facility] Potassium 4.5 3.5 - 5.5 mmol/L LAB CHEMISTRY METHOD 07/18/2024 11:32 AM [facility] Chloride 105 96 - 110 mmol/L LAB CHEMISTRY METHOD 07/18/2024 11:32 AM [facility] CO2 25 21 - 32 mmol/L LAB CHEMISTRY METHOD 07/18/2024 11:32 AM [facility] Anion Gap 6 3 - 11 LAB CHEMISTRY METHOD 07/18/2024 11:32 AM [facility] Glucose 179(H) 70 - 100 mg/dL LAB CHEMISTRY METHOD 07/18/2024 11:32 AM EDT [facility] BUN 12 5 - 25 mg/dL LAB CHEMISTRY METHOD 07/18/2024 11:32 AM EDT [facility] Comment:Results verified by repeat testing Creatinine 0.84 0.70 - 1.30 mg/dL LAB CHEMISTRY METHOD 07/18/2024 11:32 AM EDT [facility] eGFR 96 >=60 mL/min/1. 73m2 LAB CHEMISTRY METHOD 07/18/2024 11:32 AM EDT [facility] Comment:Calculation based on the Chronic Kidney Disease Epidemiology Collaboration (CKD-EPI) equation refit without adjustment for race. BUN/Creatinine Ratio 14.3 LAB CHEMISTRY METHOD 07/18/2024 11:32 AM T [facility] Calcium 8.3(L) 8.5 - 10.5 mg/dL LAB CHEMISTRY METHOD 07/18/2024 11:32 AM T [facility] Blood Venous blood specimen / Unknown Venipuncture / Unknown 07/18/2024 6:15 AM EDT 07/18/2024 10:25 AM EDT us Reji Sterling MD LAB BLOOD ORDERABLES Final Resul t [facility] [address] [place] [address], * (ABNORMAL) Complete blood count (07/18/2024 6:15 AM EDT) WBC 6.1 4.8 - 10.8 K/mcL LAB HEMETOLOGY METHOD 07/18/2024 11:01 AM EDT [facility] RBC 4.60 4.50 - 5.50 M/mcL LAB HEMETOLOGY METHOD 07/18/2024 11:01 AM EDT [facility] Hemoglobin 12.9(L) 13.5 - 17.5 g/dL LAB HEMETOLOGY METHOD 07/18/2024 11:01 AM EDT [facility] Hematocrit 43.5 42.0 - 54.0 % LAB HEMETOLOGY METHOD [facility]24 [facility] MCV 94.6 79.0 - 98.0 FL LAB HEMETOLOGY METHOD 07/18/2024 [facility] MCH 28.0 27.0 - 32.0 pcg LAB HEMETOLOGY METHOD 07/18/2024 11:01 AM EDT [facility] MCHC 29.7(L) 32.0 - 37.0 g/dL LAB HEMETOLOGY METHOD 07/18/2024 11:01 AM [facility] RDW 15.3(H) 11.0 - 15.0 % LAB HEMETOLOGY METHOD 07/18/2024 11:[facility] Platelets 249 130 - 400 K/mcL LAB HEMETOLOGY METHOD 07/18/2024 11:01 AM EDT [facility] MPV 9.2 7.0 - 11.0 FL LAB HEMETOLOGY METHOD 07/18/2024 11:01 AM [facility] NRBC 0.0 <1.0 % LAB HEMETOLOGY METHOD 07/18/2024 11:01 AM EDT [facility] NRBC Absolute 0.00 <0.10 K/mcL LAB HEMETOLOGY METHOD 07/18/2024 11:01 AM [facility] Blood Venous blood specimen / Unknown Venipuncture / Unknown 07/18/2024 6:15 AM EDT 07/18/2024 10:25 AM EDT us Reji Sterling MD LAB BLOOD ORDERABLES Final Resul t [facility] [address] [place], [place] [address] [phone] documented in this encounter Visit Diagnoses Diagnosis Acute kidney failure, unspecified (CMS/[facility] V24) Acute kidney failure, unspecified Cellulitis of left upper limb documented in this encounter Additional Health Concerns Infection Onset Date Last Indicated Resolved Time ESBL 07/27/2024 10/26/2024 documented as of this encounter Care Teams Farm Marketer Relationship Specialty Start Date End Date Linh Cook MD [address] [place] [phone] PCP - General Internal Medicine 11/05/20 documented as of this encounter
--- OUTSIDE RECORDS SUMMARY | 2024-12-06 15:11 | XMS_ITS | Encounter Summary ---
Author Organization [employer] Address [address] [facility] [address] [place] [address] Care Team Providers Care Curling Machine Operator Name Role Phone Linh Cook MD Primary Care Provide r Reason for Visit * Reason Onset Date Comments Nurse Triage 12/02/2024 Encounter Details Date Type Department Care Team ([facility] st Contact Info) Description 12/02/2024 Telephone [facility] [address] [place], [place] [phone] Linh Cook MD [address] [place] [address] Nurse Triage Social History Tobacco Use Types Packs/Day Years [...] encounter Miscellaneous Notes * Telephone Encounter - Sheila John RN - 12/02/2024 11:33 AM EDT No knitting machine tender needed as 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 Call returned to Ramiro Hamm to triage below at [phone]. Reports having chronic bilateral knee pain. Per pt having a laceration to right leg. Pt states this occurred a few weeks ago. Not open or draining. Pt seen at [facility] ER for this 1 week. Pt was given antibiotics for laceration x 5 days. Pt completed. Pt denies any swelling or redness to knee. Mild limited ROM>. Pt using gabapentin with minimal relief. Pt advised of disposition,agrees to seek [facility] for exam. Protocol Used: Knee Pain (Adult) Protocol-Based Disposition: See in Office or Video Visit within 3 Days Video visit offer not recorded Positive Triage Question: * Mild knee pain lasts > 7 days * All higher-acuity triage questions were negative Care Advice Discussed: * Reassurance and Education - Knee Pain * Pain Medicines * Reasons To Call Back - Severe pain lasts more than 2 hours after pain medicine - Mild pain lasts over 7 days - Signs of infection occur (spreading redness, warmth, fever) - You become worse * Telephone Encounter - Ayden Roberts - 12/02/2024 10:25 AM EDT Symptom: Knee Pain - Not From Injury Outcome: Talk to a nurse or provider within 15 minutes Reason: Can't walk (unless normally can't walk) The caller accepted this outcome. Contact pt at [phone] (greenlandic) Muna also called reporting that pt canceled his OT due to his pain documented in this encounter Plan of Treatment Upcoming Encounters Date Type Department Care Team (Late st Contact Info) Description 02/15/2025 10:45 AM EST Office Visit [facility] [address] [place] [phone] Linh Cook MD [address] [place] [phone] documented as of this encounter Visit Diagnoses Not on filedocumented in this encounter Additional Health Concerns Assessment Noted Time PHQ-9 Depression Total Score: 13 025 1:43 PM EDT documented as of this encounter Care Teams Curling Machine Operator Relationship Specialty Start Date End Date Linh Cook MD [address] [place] [phone] PCP - General Family Medicine 06/22/18 [facility] 06/10/23 documented as of this encounter
--- OUTSIDE RECORDS SUMMARY | 2024-12-06 15:11 | XMS_ITS | Encounter Summary ---
Author Organization [employer] Address [address] [place] [address] Care Team Providers Care Assembler Hydraulic Backhoe Name Role Phone Linh Cook MD Primary Care Provide r Encounter Details Date Type Department Care Team (Late st Contact Info) Description 08/01/2024 Lab Requisition [facility] - Main Lab 299 [facility] [place] [address] Reji Sterling MD [address] [place] [address] [address] [place], [phone] Hyperlipidemia, unspecified; Acute kidney failure, unspecified (CMS/HCC V24); Cellulitis [...] Associated Diagnosis Comments COMPLETE BLOOD COUNT Routine 08/02/2024 6:21 AM EDT Hyperlipidemia, unspecified Acute kidney failure, unspecified (CMS/HCC V24) Cellulitis of left upper limb PREALBUMIN Routine 08/02/2024 6:21 AM EDT Hyperlipidemia, unspecified Acute kidney failure, unspecified (CMS/HCC V24) Cellulitis of left upper limb BASIC METABOLIC PANEL Routine 08/02/2024 6:21 AM EDT Hyperlipidemia, unspecified Acute kidney failure, unspecified (CMS/HCC V24) Cellulitis of left upper limb documented in this encounter Results * (ABNORMAL) Basic metabolic panel (08/02/2024 6:21 AM EDT) [facility] Sodium 139 133 - 145 mmol/L LAB CHEMISTRY METHOD 08/02/2024 12:10 PM [facility] Potassium 4.5 3.5 - 5.5 mmol/L LAB CHEMISTRY METHOD 08/02/2024 12:10 PM [facility] Chloride 101 96 - 110 mmol/L LAB CHEMISTRY METHOD 08/02/2024 12:10 PM [facility] CO2 32 21 - 32 mmol/L LAB CHEMISTRY METHOD 08/02/2024 12:[address] [facility] Anion Gap 6 3 - 11 LAB CHEMISTRY METHOD 08/02/2024 12:[address] [facility] Glucose 109(H) 70 - 100 mg/dL LAB CHEMISTRY METHOD 08/02/2024 12:10 PM [facility] BUN 18 5 - 25 mg/dL LAB CHEMISTRY METHOD 08/02/2024 12:[address] [facility] Creatinine 0.73 0.70 - 1.30 mg/dL LAB CHEMISTRY METHOD 08/02/2024 12:10 PM [facility] eGFR 100 >=60 mL/min/1. 73m2 LAB CHEMISTRY METHOD 08/02/2024 12:[address] [facility] Comment:Calculation based on the Chronic Kidney Disease Epidemiology Collaboration (CKD-EPI) equation refit without adjustment for race. BUN/Creatinine Ratio 24.7 LAB CHEMISTRY METHOD 08/02/2024 12:10 PM [facility] Calcium 8.7 8.5 - 10.5 mg/dL LAB CHEMISTRY METHOD 08/02/2024 12:10 PM [facility] Blood Venous blood specimen / Unknown Venipuncture / Unknown 08/02/2024 6:21 AM EDT 08/02/2024 10:17 AM EDT us Reji Sterling MD LAB BLOOD ORDERABLES Final Resul t [facility] [address] [place] [address], * (ABNORMAL) Complete blood count (08/02/2024 6:21 AM EDT) WBC 8.8 4.8 - 10.8 K/mcL LAB HEMETOLOGY METHOD 08/02/2024 11:[address] [facility] RBC 5.10 4.50 - 5.50 M/mcL LAB HEMETOLOGY METHOD 08/02/2024 11:11 AM [facility] Hemoglobin 14.1 13.5 - 17.5 g/dL LAB HEMETOLOGY METHOD 08/02/2024 11:11 AM [facility] Hematocrit 48.3 42.0 - 54.0 % LAB HEMETOLOGY METHOD 08/02/2024 11:11 AM [facility] MCV 94.3 79.0 - 98.0 FL LAB HEMETOLOGY METHOD 08/02/2024 11:11 AM [facility] MCH 27.5 27.0 - 32.0 pcg LAB HEMETOLOGY METHOD 08/02/2024 11:11 AM [facility] MCHC 29.2(L) 32.0 - 37.0 g/dL LAB HEMETOLOGY METHOD 08/02/2024 11:11 AM [facility] RDW 15.5(H) 11.0 - 15.0 % LAB HEMETOLOGY METHOD 08/02/2024 11:11 AM [facility] Platelets 584(H) 130 - 400 K/mcL LAB HEMETOLOGY METHOD 08/02/2024 11:11 AM [facility] MPV 8.9 7.0 - 11.0 FL LAB HEMETOLOGY METHOD 08/02/2024 11:11 AM [facility] NRBC 0.0 <1.0 % LAB HEMETOLOGY METHOD 08/02/2024 11:11 AM [facility] NRBC Absolute 0.00 <0.10 K/mcL LAB HEMETOLOGY METHOD 08/02/2024 11:11 AM [facility] Blood Venous blood specimen / Unknown Venipuncture / Unknown 08/02/2024 6:21 AM EDT 08/02/2024 10:17 AM EDT Reji Sterling MD LAB BLOOD ORDERABLES Final Resul t Performing Organization Address City/[facility]/ZIP Co de Phone Number [facility] [address] [place] [address], [place] [phone] * Prealbumin (08/02/2024 6:21 AM EDT) Prealbumin 20 18 - 45 mg/dL LAB CHEMISTRY METHOD 08/02/2024 12:[address] [facility] Blood Venous blood specimen / Unknown Venipuncture / Unknown 08/02/2024 6:21 AM EDT 08/02/2024 10:17 AM EDT Reji Sterling MD LAB BLOOD ORDERABLES Final Resul t Performing Organization Address [facility]/ZIP Co de Phone Number [facility] [address] [place] [address], [place] [phone] documented in this encounter Visit Diagnoses Diagnosis Hyperlipidemia, unspecified Acute kidney failure, unspecified (CMS/HCC V24) Acute kidney failure, unspecified Cellulitis of left upper limb documented in this encounter Additional Health Concerns Infection Onset Date Last Indicated Resolved Time ESBL 07/27/2024 10/26/2024 documented as of this encounter Care Teams Assembler Hydraulic Backhoe Relationship Specialty Start Date End Date Linh Cook MD [address] [place] [phone] PCP - General Internal Medicine 11/05/20 documented as of this encounter
--- OUTSIDE RECORDS SUMMARY | 2024-12-06 15:11 | XMS_ITS | Encounter Summary ---
Author Organization [employer] Address [address] [place] [address] 7[address] [place] [address] Care Team Providers Care Nsh Teacher Name Role Phone Linh Cook MD Primary Care Provide r Encounter Details Date Type Department Care Team (Late st Contact Info) Description 03/26/2022 Orders Only [facility] [address] [place] [address] [phone] Risa Leiva MD [address] [place] [address] [phone] Diabetic peripheral neuropathy (CMS/HCC) (Primary Dx) Social History Tobacco Use Types Packs/Day Years Used Date Smoking Tobacco: Never Assessed Sex and Gender Information Value Date Recorded Sex Assigned at Male 01/06/2022 10:35 AM EDT Legal Sex Male 10:35 AM EDT Gender Identity Male 01/06/2022 10:35 AM EDT Sexual Orientation Straight 01/06/2022 10 :35 AM EDT documented as of this encounter Plan of Treatment Upcoming Encounters Date Type Department Care Team (Late st Contact Info) Description 02/15/2025 10:45 AM EST Office Visit [facility] [address] [place] [address] [phone] Linh Cook MD [address] [place], [place] [phone] documented as of this encounter Procedures Procedure Name Priority Date/Time Associated Diagnosis Comments ALBUMIN, RANDOM URINE W/CREATININE Routine 10/01/2022 12:20 PM EDT Diabetic peripheral neuropathy (CMS/HCC) GLUCOSE, WHOLE BLOOD Routine 07/02/2022 11:01 AM EDT Diabetic peripheral neuropathy (CMS/HCC) ALBUMIN, RANDOM URINE W/CREATININE Routine 06/30/2022 11:32 AM EDT Diabetic peripheral neuropathy (CMS/HCC) LIPID PANEL, STANDARD Routine 06/30/2022 11:31 AM EDT Diabetic peripheral neuropathy (CMS/HCC) BASIC METABOLIC PANEL Routine 06/30/2022 11:31 AM EDT Diabetic peripheral neuropathy (CMS/HCC) GLUCOSE, WHOLE BLOOD Routine 04/02/2022 12:44 PM EST Diabetic peripheral neuropathy (CMS/HCC) documented in this encounter Results * Albumin, Random Urine W/Creatinine (10/01/2022 12:20 PM EDT) Creatinine, Urine 40.68 mg/dL [facility] Microalbumin Urine 38.0 mg/L [facility] Microalbum Creatinine Ratio Ur 93.4 ug/mg cr [facility] Comment:Albumin/Creatinine R atio Reference Ranges: Normal: < 30 ug/mg creatinine Microalbuminuria: 30 - 300 ug/mg creatinineClinical Albuminuria: > 300 ug/mg creatinine 10/01/2022 12:2 0 PM EDT 10/01/2022 12:54 PM EDT us Linh Ramos MD LAB URINE ORDERABLES Final Result [facility] [address] [place], [place] [phone] * (ABNORMAL) Glucose, Whole Blood (07/02/2022 11:01 AM EDT) Glucose, Whole Blood 180(H) 60 - 115 mg/dL [facility] Comment:METER #: [id number] Testing performed in the Endocrinology Department [address] , [address], [facility]. 07/02/2022 11:0 1 AM EDT 07/02/2022 11:06 AM EDT [facility] External Provider LAB BLO OD ORDERABLES Final Result Performing Organization Address [facility] Phone Number [facility] [address] [place] [phone] * Albumin, Random Urine W/Creatinine (06/30/2022 11:32 AM EDT) Creatinine, Urine 48.01 mg/dL [facility] Microalbumin Urine 29.0 mg/L [facility] Microalbum Creatinine Ratio Ur 60.4 ug/mg cr [facility] Comment:Albumin/Creatinine R atio Reference Ranges: Normal: < 30 ug/mg creatinine Microalbuminuria: 30 - 300 ug/mg creatinineClinical Albuminuria: > 300 ug/mg creatinine 06/30/2022 11:3 2 AM EDT 06/30/2022 1:45 PM EDT [facility] External Provider LAB URI NE ORDERABLES Final Result Performing Organization Address [facility] Phone Number [facility] [address] [place] [phone] * Lipid Panel, Standard (06/30/2022 11:31 AM EDT) Triglycerides 132 mg/dL [facility] Comment:Desirable Triglyceri de: less than 150 mg/dLBorderline High Triglyceride 150-199 mg/dLHigh Triglyceride: 200-499 mg/dLVery High Triglyceride: greater than or equal to 5OO mg/dL Cholesterol 174 mg/dL [facility] Comment:Desirable Cholestero l: less than 200 mg/dLBorderline High Cholesterol: 200-239 mg/dLHigh Cholesterol: greater than 239 mg/dL LDL Cholesterol Calculated 111 mg/dl [facility] Comment:Desirable LDL: less than 100 mg/dLNear Optimal/Above Optimal LDL: 110- 129 mg/dLBorderline High LDL: 130-159 mg/dLHigh LDL: 160-189 mg/dLVery High LDL: greater than or equal to 190 mg/dL HDL Cholesterol 37 mg/dL [facility] Comment:Desirable HDL: great er than 40 mg/dL Note: This HDL assay may give artificially low results in patients with liver disease. 06/30/2022 11:3 1 AM EDT 06/30/2022 11:31 AM EDT [facility] External Provider LAB BLO OD ORDERABLES Final Result [facility] [address] [place] [phone] * (ABNORMAL) Basic Metabolic Panel (06/30/2022 11:31 AM EDT) Sodium 145 135 - 145 mmol/L [facility] Potassium 3.8 3.3 - 5.1 mmol/L [facility] Chloride 104 96 - 108 mmol/L [facility] Carbon Dioxide 31(H) 22 - 29 mmol/L [facility] Anion Gap 14 12 - 20 [facility] Urea Nitrogen (BUN) 21(H) 9 - 16 mg/dL [facility] Creatinine, Serum 1.27 0.5 - 1.4 mg/dL [facility] Estimated Glomerular Filt Rate 57 [facility] Comment:NOTE: For -Am erican individuals, multiply the result by 1.210.Chronic Kidney Disease: Estimated GFR < 60 mL/min/1.34b6Ravsop Kidney Disease: Estimated GFR < 15 mL/min/1.73m2 Glucose 121(H) 60 - 115 mg/dL [facility] Calcium 8.4 8.4 - 10.2 mg/dL [facility] 06/30/2022 11:3 1 AM EDT 06/30/2022 11:31 AM EDT [facility] External Provider LAB BLO OD ORDERABLES Final Result Performing Organization Address [facility] Co de Phone Number [facility] [address] [place] [phone] * (ABNORMAL) Glucose, Whole Blood (04/02/2022 12:44 PM EST) Glucose, Whole Blood 411(HH) 60 - 115 mg/dL [facility] Comment:METER #: [id number] 5Testing performed in the Endocrinology Department [address], [address], [facility]. 04/02/2022 12:4 4 PM EST 04/02/2022 12:49 PM EST [facility] External Provider LAB BLO OD ORDERABLES Final Result Performing Organization Address [facility] Co de Phone Number [facility] [address] [place] [address] [phone] documented in this encounter Visit Diagnoses Diagnosis Diabetic peripheral neuropathy (HCC)- Primary Type II or unspecified type diabetes mellitus with neurological manifestations, not stated as uncontrolled documented in this encounter Care Teams Nsh Teacher Relationship Specialty Start Date End Date Linh Cook MD [address] [place] [phone] PCP - General Family Medicine 06/22/18 [facility] 06/10/23 documented as of this encounter
--- OUTSIDE RECORDS SUMMARY | 2024-12-06 15:11 | XMS_ITS | Encounter Summary ---
Author Organization [employer] Address [address] [place] [address] Care Team Providers Care Folder Machine Name Role Phone Linh Cook MD Primary Care Provide r Encounter Details Date Type Department Care Team (Latest Contact Info) Description 09/13/2024 Lab Requisition [facility] - Main Lab 299 [facility] [place] [phone] My Oconnor MD [address] [place] [phone] Type 2 diabetes mellitus without complications (CMS/HCC [...] 2 diabetes mellitus without complications (CMS/HCC V24, CMS/[facility] V28) Weakness Heart failure, unspecified (CMS/HCC V24, [...] mg/dL LAB CHEMISTRY METHOD 09/13/2024 9:34 AM [facility] Triglycerides 131 0 - 150 mg/dL LAB CHEMISTRY METHOD 09/13/2024 9:34 AM [facility] HDL 36(L) >=40 mg/dL LAB CHEMISTRY METHOD 09/13/2024 9:34 AM [facility] LDL Calculated 42 0 - 100 mg/dL LAB CHEMISTRY METHOD 09/13/2024 9:34 AM [facility] VLDL Cholesterol Jay 26.2 mg/dL LAB CHEMISTRY METHOD 09/13/2024 9:34 AM [facility] Non HDL Chol. (LDL+VLDL) 68 <145 mg/dL LAB CHEMISTRY METHOD 09/13/2024 9:34 AM EDT [facility] Chol/HDL Ratio 2.9 0.0 - 4.4 LAB CHEMISTRY METHOD 09/13/2024 9:34 AM EDT [facility] Blood Venous blood specimen / Unknown Venipuncture / Unknown 09/13/2024 4:39 AM EDT 09/13/2024 8:20 AM EDT us My Oconnor MD LAB BLOOD ORDERABLES Final Resu lt [facility] [address] [place] [address], [place] [phone] * Vitamin B12 (09/13/2024 4:39 AM EDT) Vitamin B-12 668 250 - 900 pcg/mL LAB CHEMISTRY METHOD 09/13/2024 9:56 AM EDT [facility] Blood Venous blood specimen / Unknown Venipuncture / Unknown 09/13/2024 4:39 AM EDT 09/13/2024 8:20 AM EDT us My Oconnor MD LAB BLOOD ORDERABLES Final Resu lt [facility] [address] [place] [address], [place] [phone] * Folate (09/13/2024 4:39 AM EDT) Folate 7.6 2.8 - 17.0 ng/ml LAB CHEMISTRY METHOD 09/13/2024 9:56 AM EDT [facility] Blood Venous blood specimen / Unknown Venipuncture / Unknown 09/13/2024 4:39 AM EDT 09/13/2024 8:20 AM EDT us My Oconnor MD LAB BLOOD ORDERABLES Final Resu lt Performing Organization Address City/[facility]/ZIP Co de Phone Number [facility] [address] [place] [address], [place] [phone] * (ABNORMAL) Hemoglobin A1c (09/13/2024 4:39 AM EDT) Hemoglobin A1C 10.0(H) <6.5 % LAB CHEMISTRY METHOD 09/13/2024 2:10 PM EDT [facility] Mean Bld Glu Estim. 240 mg/dL LAB CHEMISTRY METHOD 09/13/2024 2:10 PM EDT [facility] Blood Venous blood specimen / Unknown Venipuncture / Unknown 09/13/2024 4:39 AM EDT 09/13/2024 8:20 AM EDT us My Oconnor MD LAB BLOOD ORDERABLES Final Resu lt Performing Organization Address City/[facility]/ZIP Co de Phone Number [facility] [address] [place] [address], [place] [phone] * (ABNORMAL) Vitamin D 25 hydroxy (09/13/2024 4:39 AM EDT) Pathologist [facility] Vit D, 25-Hydroxy 25.3(L) 30.0 - 80.0 ng/mL LAB CHEMISTRY METHOD 09/13/2024 10:32 AM EDT [facility] Blood Venous blood specimen / Unknown Venipuncture / Unknown 09/13/2024 4:39 AM EDT 09/13/2024 8:20 AM EDT us My Oconnor MD LAB BLOOD ORDERABLES Final Resu lt [facility] [address] [place] [address], [place] [phone] * Thyroid stimulating hormone (09/13/2024 4:39 AM EDT) [facility] TSH 3.20 0.40 - 4.00 mcIU/mL LAB CHEMISTRY METHOD 09/13/2024 10:32 AM [facility] Blood Venous blood specimen / Unknown Venipuncture / Unknown 09/13/2024 4:39 AM EDT 09/13/2024 8:20 AM EDT us My Oconnor MD LAB BLOOD ORDERABLES Final Resu lt [facility] [address] [place] [address], * (ABNORMAL) Comprehensive metabolic panel (09/13/2024 4:39 AM EDT) [facility] Sodium 135 133 - 145 mmol/L LAB CHEMISTRY METHOD 09/13/2024 9:56 AM [facility] Potassium 4.7 3.5 - 5.5 mmol/L LAB CHEMISTRY METHOD 09/13/2024 9:56 AM [facility] Chloride 97 96 - 110 mmol/L LAB CHEMISTRY METHOD 09/13/2024 9:56 AM [facility] CO2 36(H) 21 - 32 mmol/L LAB CHEMISTRY METHOD 09/13/2024 9:56 AM [facility] Anion Gap 2(L) 3 - 11 LAB CHEMISTRY METHOD 09/13/2024 9:56 AM [facility] Glucose 125(H) 70 - 100 mg/dL LAB CHEMISTRY METHOD 09/13/2024 9:56 AM [facility] BUN 22 5 - 25 mg/dL LAB CHEMISTRY METHOD 09/13/2024 9:56 AM [facility] Creatinine 0.85 0.70 - 1.30 mg/dL LAB CHEMISTRY METHOD 09/13/2024 9:56 AM [facility] eGFR 96 >=60 mL/min/1. 73m2 LAB CHEMISTRY METHOD 09/13/2024 9:56 AM [facility] Comment:Calculation based on the Chronic Kidney Disease Epidemiology Collaboration (CKD-EPI) equation refit without adjustment for race. BUN/Creatinine Ratio 25.9 LAB CHEMISTRY METHOD 09/13/2024 9:56 AM [facility] Calcium 8.2(L) 8.5 - 10.5 mg/dL LAB CHEMISTRY METHOD 09/13/2024 9:56 AM [facility] AST (SGOT) 23 10 - 42 unit/L LAB CHEMISTRY METHOD 09/13/2024 9:56 AM [facility] ALT (SGPT) 23 10 - 60 unit/L LAB CHEMISTRY METHOD 09/13/2024 9:56 AM [facility] Alkaline Phosphatase 117 42 - 121 unit/L LAB CHEMISTRY METHOD 09/13/2024 9:56 AM [facility] Total Protein 6.5 6.0 - 8.0 g/dL LAB CHEMISTRY METHOD 09/13/2024 9:56 AM [facility] Albumin 2.4(L) 3.2 - 5.0 g/dL LAB CHEMISTRY METHOD 09/13/2024 9:56 AM [facility] Total Bilirubin 0.4 0.0 - 1.4 mg/dL LAB CHEMISTRY METHOD 09/13/2024 9:56 AM [facility] Blood Venous blood specimen / Unknown Venipuncture / Unknown 09/13/2024 4:39 AM EDT 09/13/2024 8:20 AM EDT us My Oconnor MD LAB BLOOD ORDERABLES Final Resu lt [facility] [address] [place] [address], * (ABNORMAL) Complete blood count (09/13/2024 4:39 AM EDT) [facility] WBC 8.2 4.8 - 10.8 K/mcL LAB HEMETOLOGY METHOD 09/13/2024 9:10 AM [facility] RBC 4.40(L) 4.50 - 5.50 M/mcL LAB HEMETOLOGY METHOD 09/13/2024 9:10 AM [facility] Hemoglobin 11.8(L) 13.5 - 17.5 g/dL LAB HEMETOLOGY METHOD 09/13/2024 9:10 AM [facility] Hematocrit 40.4(L) 42.0 - 54.0 % LAB HEMETOLOGY METHOD 09/13/2024 9:10 AM [facility] MCV 91.2 79.0 - 98.0 FL LAB HEMETOLOGY METHOD 09/13/2024 9:10 AM [facility] MCH 26.6(L) 27.0 - 32.0 pcg LAB HEMETOLOGY METHOD 09/13/2024 9:10 AM [facility] MCHC 29.2(L) 32.0 - 37.0 g/dL LAB HEMETOLOGY METHOD 09/13/2024 9:10 AM [facility] RDW 15.4(H) 11.0 - 15.0 % LAB HEMETOLOGY METHOD 09/13/2024 9:10 AM [facility] Platelets 364 130 - 400 K/mcL LAB HEMETOLOGY METHOD 09/13/2024 9:10 AM [facility] MPV 9.4 7.0 - 11.0 FL LAB HEMETOLOGY METHOD 09/13/2024 9:10 AM [facility] NRBC 0.0 <1.0 % LAB HEMETOLOGY METHOD 09/13/2024 9:10 AM [facility] NRBC Absolute 0.00 <0.10 K/mcL LAB HEMETOLOGY METHOD 09/13/2024 9:10 AM EDT [facility] Blood Venous blood specimen / Unknown Venipuncture / Unknown 09/13/2024 4:39 AM EDT 09/13/2024 8:20 AM EDT us My Oconnor MD LAB BLOOD ORDERABLES Final Resu lt [facility] [address] [place] [address], documented in this encounter Visit Diagnoses Diagnosis Type 2 diabetes mellitus without complications (CMS/HCC V24, CMS/[facility] V28) Weakness Other malaise and fatigue Heart failure, unspecified (CMS/HCC V24, CMS/[facility] V28) Heart failure, unspecified Vitamin D deficiency, unspecified documented in this encounter Additional Health Concerns Infection Onset Date Last Indicated Resolved Time ESBL 07/27/2024 10/26/2024 documented as of this encounter Care Teams Folder Machine Relationship Specialty Start Date End Date Linh Cook MD [address] [phone] PCP - General Internal Medicine 11/05/20 documented as of this encounter
--- OUTSIDE RECORDS SUMMARY | 2024-12-06 15:11 | XMS_ITS | Encounter Summary ---
Author Organization [employer] Address [address] [facility] 7[address] [place] [address] Care Team Providers Care Dope Dry House Operator Name Role Phone Linh Cook MD Primary Care Provide r Encounter Details Date Type Department Care Team (Late st Contact Info) Description 12/06/2024 Orders Only GENERIC EXTERNAL DATA DEPARTMENT Provider, Generic External Data Social History Tobacco Use Types Packs/Day Years [...] is your housing situation today? I have gavinoaidan richard 10/14/[address] you [...] t he electric, gas, oil or water Social [employer]iting threatened to shut off services in your [...] Description 02/15/2025 10:45 AM EST Office Visit [facility] [address] [place] [address] Linh Cook MD [address] [place] [address] documented as of this encounter Procedures Procedure Name Priority Date/Time Associated Diagnosis Comments GLUCOSE, WHOLE BLOOD Routine 12/06/2024 2:26 PM EDT documented in this encounter Results * (ABNORMAL) Glucose, Whole Blood (12/06/2024 2:26 PM EDT) Glucose, Whole Blood 305(H) 60 - 115 mg/dL [facility] Comment:METER #: [id number] Testing performed in the Endocrinology Department [address] , [address], [facility]. 12/06/2024 2:26 PM EDT 12/06/2024 2:31 PM EDT us Generic External Data Provider LAB BLOOD ORDERAB LES Final Result [facility] [address] [place] [phone] documented in this encounter Visit Diagnoses Not on filedocumented in this encounter Additional Health Concerns Assessment Noted Time PHQ-9 Depression Total Score: 13 025 1:43 PM EDT documented as of this encounter Care Teams Dope Dry House Operator Relationship Specialty Start Date End Date Linh Cook MD [address] [place] [address] PCP - General Family Medicine 06/22/18 [facility] 06/10/23 documented as of this encounter
--- OUTSIDE RECORDS SUMMARY | 2024-12-06 15:11 | XMS_ITS | Encounter Summary ---
Author Organization [employer] Address [address] [place] [address] Care Team Providers Care Chairman & Chief Executive Officer Name Role Phone Linh Cook MD Primary Care Provide r Encounter Details Date Type Department Care Team (Late st Contact Info) Description 08/08/2024 Lab Requisition [facility] - Main Lab [address] [facility] [place] [address] Reji Sterling MD [address] [place] [address] [address] [place], [phone] Type 2 diabetes mellitus without complications (CMS/HCC V24, CMS/HCC V28); Gout, unspecified; Hyperlipidemia, unspecified Social History Tobacco Use Types Packs/Day [...] Procedure Name Priority Date/Time Associated Diagnosis Comments IRON AND TIBC Routine 08/08/2024 6:55 AM EDT Type 2 diabetes mellitus without complications ([facility] V24, [facility] V28) Gout, unspecified Hyperlipidemia, unspecified COMPLETE BLOOD COUNT Routine 08/08/2024 6:55 AM EDT Type 2 diabetes mellitus without complications ([facility]/HCC V24, CMS/[facility] V28) Gout, unspecified Hyperlipidemia, unspecified FERRITIN Routine 08/08/2024 6:55 AM EDT Type 2 diabetes mellitus without complications (CMS/[facility] V24, CMS/[facility] V28) Gout, unspecified Hyperlipidemia, unspecified COMPREHENSIVE METABOLIC PANEL Routine 08/08/2024 6:55 AM EDT Type 2 diabetes mellitus without complications ([facility] V24, CMS/[facility] V28) Gout, unspecified Hyperlipidemia, unspecified documented in this encounter Results * Ferritin (08/08/2024 6:55 AM EDT) Ferritin 184 26 - 388 ng/mL LAB CHEMISTRY METHOD 08/08/2024 11:52 AM EDT [facility] Blood Venous blood specimen / Unknown Venipuncture / Unknown 08/08/2024 6:55 AM EDT 08/08/2024 10:13 AM EDT us Reji Sterling MD LAB BLOOD ORDERABLES Final Resul t Performing Organization Address [facility]/ZIP Co de Phone Number [facility] [address] [place] [address], [place] [phone] * (ABNORMAL) Iron and TIBC (08/08/2024 6:55 AM EDT) Iron 50 50 - 160 mcg/dL LAB CHEMISTRY METHOD 08/08/2024 11:52 AM EDT [facility] TIBC 264 250 - 450 mcg/dL LAB CHEMISTRY METHOD 08/08/2024 11:52 AM EDT [facility] Iron Saturation 19(L) 20 - 50 % LAB CHEMISTRY METHOD 08/08/2024 11:52 AM EDT [facility] Blood Venous blood specimen / Unknown Venipuncture / Unknown 08/08/2024 6:55 AM EDT 08/08/2024 10:13 AM EDT us Reji Sterling MD LAB BLOOD ORDERABLES Final Resul t Performing Organization Address [facility] de Phone Number [facility] [address] [place] [address], [place] [phone] * (ABNORMAL) Comprehensive metabolic panel (08/08/2024 6:55 AM EDT) Sodium 136 133 - 145 mmol/L LAB CHEMISTRY METHOD 08/08/2024 11:52 AM EDT [facility] Potassium 4.7 3.5 - 5.5 mmol/L LAB CHEMISTRY METHOD 08/08/2024 11:52 AM EDT [facility] Chloride 99 96 - 110 mmol/L LAB CHEMISTRY METHOD 08/08/2024 11:52 AM EDT [facility] CO2 31 21 - 32 mmol/L LAB CHEMISTRY METHOD 08/08/2024 11:52 AM [facility] Anion Gap 6 3 - 11 LAB CHEMISTRY METHOD 08/08/2024 11:52 AM [facility] Glucose 229(H) 70 - 100 mg/dL LAB CHEMISTRY METHOD 08/08/2024 11:52 AM [facility] BUN 20 5 - 25 mg/dL LAB CHEMISTRY METHOD 08/08/2024 11:52 AM [facility] Creatinine 1.04 0.70 - 1.30 mg/dL LAB CHEMISTRY METHOD 08/08/2024 11:52 AM [facility] eGFR 79 >=60 mL/min/1. 73m2 LAB CHEMISTRY METHOD 08/08/2024 11:52 AM [facility] Comment:Calculation based on the Chronic Kidney Disease Epidemiology Collaboration (CKD-EPI) equation refit without adjustment for race. BUN/Creatinine Ratio 19.2 LAB CHEMISTRY METHOD 08/08/2024 11:52 AM [facility] Calcium 8.9 8.5 - 10.5 mg/dL LAB CHEMISTRY METHOD 08/08/2024 11:52 AM [facility] AST (SGOT) 31 10 - 42 unit/L LAB CHEMISTRY METHOD 08/08/2024 11:52 AM [facility] ALT (SGPT) 30 10 - 60 unit/L LAB CHEMISTRY METHOD 08/08/2024 11:52 AM [facility] Alkaline Phosphatase 119 42 - 121 unit/L LAB CHEMISTRY METHOD 08/08/2024 11:52 AM [facility] Total Protein 6.6 6.0 - 8.0 g/dL LAB CHEMISTRY METHOD 08/08/2024 11:52 AM [facility] Albumin 2.5(L) 3.2 - 5.0 g/dL LAB CHEMISTRY METHOD 08/08/2024 11:52 AM [facility] Total Bilirubin 0.3 0.0 - 1.4 mg/dL LAB CHEMISTRY METHOD 08/08/2024 11:52 AM T [facility] Blood Venous blood specimen / Unknown Venipuncture / Unknown 08/08/2024 6:55 AM EDT 08/08/2024 10:13 AM EDT us Reji Sterling MD LAB BLOOD ORDERABLES Final Resul t [facility] [address] [place] [address], [place] [phone] * (ABNORMAL) Complete blood count (08/08/2024 6:55 AM EDT) WBC 5.9 4.8 - 10.8 K/mcL LAB HEMETOLOGY METHOD 08/08/2024 11:00 AM [facility] RBC 4.90 4.50 - 5.50 M/mcL LAB HEMETOLOGY METHOD 08/08/2024 11:00 AM [facility] Hemoglobin 13.2(L) 13.5 - 17.5 g/dL LAB HEMETOLOGY METHOD 08/08/2024 11:00 AM [facility] Hematocrit 45.5 42.0 - 54.0 % LAB HEMETOLOGY METHOD 08/08/2024 11:00 AM [facility] MCV 92.7 79.0 - 98.0 FL LAB HEMETOLOGY METHOD 08/08/2024 11:00 AM [facility] MCH 26.9(L) 27.0 - 32.0 pcg LAB HEMETOLOGY METHOD 08/08/2024 11:00 AM [facility] MCHC 29.0(L) 32.0 - 37.0 g/dL LAB HEMETOLOGY METHOD 08/08/2024 11:00 AM [facility] RDW 15.2(H) 11.0 - 15.0 % LAB HEMETOLOGY METHOD 08/08/2024 11:00 AM EDT [facility] Platelets 360 130 - 400 K/mcL LAB HEMETOLOGY METHOD 08/08/2024 11:00 AM EDT [facility] MPV 9.3 7.0 - 11.0 FL LAB HEMETOLOGY METHOD 08/08/2024 11:00 AM EDT [facility] NRBC 0.0 <1.0 % LAB HEMETOLOGY METHOD 08/08/2024 11:00 AM EDT [facility] NRBC Absolute 0.00 <0.10 K/mcL LAB HEMETOLOGY METHOD 08/08/2024 11:00 AM T [facility] Blood Venous blood specimen / Unknown Venipuncture / Unknown 08/08/2024 6:55 AM EDT 08/08/2024 10:13 AM EDT us Reji Sterling MD LAB BLOOD ORDERABLES Final Resul t [facility] [address] [place] [address], documented in this encounter Visit Diagnoses Diagnosis Type 2 diabetes mellitus without complications (CMS/HCC V24, CMS/HCC V28) Gout, unspecified Hyperlipidemia, unspecified documented in this encounter Additional Health Concerns Infection Onset Date Last Indicated Resolved Time ESBL 07/27/2024 10/26/2024 documented as of this encounter Care Teams Chairman & Chief Executive Officer Relationship Specialty Start Date End Date Linh Cook MD [address] [place] [phone] PCP - General Internal Medicine 11/05/20 documented as of this encounter
--- OUTSIDE RECORDS SUMMARY | 2024-12-06 15:11 | XMS_ITS | Encounter Summary ---
Author Organization [employer] Address [address] [place] [address] Care Team Providers Care Sap Portal Consultant Name Role Phone Linh Cook MD Primary Care Provide r Encounter Details Date Type Department Care Team (Late st Contact Info) Description 08/19/2024 Lab Requisition [facility] - Main Lab [address] [facility] [place] [address] Reji Sterling MD [address] [place] [address] [address] [place], [phone] Type 2 diabetes mellitus without complications [...] Associated Diagnosis Comments COMPLETE BLOOD COUNT Routine 08/22/2024 5:55 AM EDT Type 2 diabetes mellitus without complications ([facility] V24, [facility] V28) COMPREHENSIVE METABOLIC PANEL Routine 08/22/2024 5:55 AM EDT Type 2 diabetes mellitus without complications ([facility] V24, [facility] V28) documented in this encounter Results * (ABNORMAL) Comprehensive metabolic panel (08/22/2024 5:55 AM EDT) Sodium 132(L) 133 - 145 mmol/L LAB CHEMISTRY METHOD 08/22/2024 12:50 PM [facility] Potassium 4.9 3.5 - 5.5 mmol/L LAB CHEMISTRY METHOD 08/22/2024 12:50 PM [facility] Chloride 99 96 - 110 mmol/L LAB CHEMISTRY METHOD 08/22/2024 12:50 PM [facility] CO2 27 21 - 32 mmol/L LAB CHEMISTRY METHOD 08/22/2024 12:50 PM [facility] Anion Gap 6 3 - 11 LAB CHEMISTRY METHOD 08/22/2024 12:50 PM [facility] Glucose 264(H) 70 - 100 mg/dL LAB CHEMISTRY METHOD 08/22/2024 12:50 PM [facility] BUN 19 5 - 25 mg/dL LAB CHEMISTRY METHOD 08/22/2024 12:50 PM [facility] Creatinine 0.68(L) 0.70 - 1.30 mg/dL LAB CHEMISTRY METHOD 08/22/2024 12:50 PM [facility] eGFR 103 >=60 mL/min/1. 73m2 LAB CHEMISTRY METHOD 08/22/2024 12:50 PM [facility] Comment:Calculation based on the Chronic Kidney Disease Epidemiology Collaboration (CKD-EPI) equation refit without adjustment for race. BUN/Creatinine Ratio 27.9 LAB CHEMISTRY METHOD 08/22/2024 12:50 PM [facility] Calcium 8.6 8.5 - 10.5 mg/dL LAB CHEMISTRY METHOD 08/22/2024 12:50 PM [facility] AST (SGOT) 21 10 - 42 unit/L LAB CHEMISTRY METHOD 08/22/2024 12:50 PM [facility] ALT (SGPT) 24 10 - 60 unit/L LAB CHEMISTRY METHOD 08/22/2024 12:50 PM [facility] Alkaline Phosphatase 128(H) 42 - 121 unit/L LAB CHEMISTRY METHOD 08/22/2024 12:50 PM [facility] Total Protein 6.4 6.0 - 8.0 g/dL LAB CHEMISTRY METHOD 08/22/2024 12:50 PM [facility] Albumin 2.6(L) 3.2 - 5.0 g/dL LAB CHEMISTRY METHOD 08/22/2024 12:50 PM [facility] Total Bilirubin 0.4 0.0 - 1.4 mg/dL LAB CHEMISTRY METHOD 08/22/2024 12:50 PM [facility] Blood Venous blood specimen / Unknown Venipuncture / Unknown 08/22/2024 5:55 AM EDT 08/22/2024 10:51 AM EDT us Reji Sterling MD LAB BLOOD ORDERABLES Final Resul t [facility] [address] [place] [address], [place] [phone] * (ABNORMAL) Complete blood count (08/22/2024 5:55 AM EDT) WBC 8.1 4.8 - 10.8 K/mcL LAB HEMETOLOGY METHOD 08/22/2024 12:30 PM EDT [facility] RBC 4.90 4.50 - 5.50 M/mcL LAB HEMETOLOGY METHOD 08/22/2024 12:30 PM EDT [facility] Hemoglobin 13.4(L) 13.5 - 17.5 g/dL LAB HEMETOLOGY METHOD 08/22/2024 12:30 PM EDT [facility] Hematocrit 43.6 42.0 - 54.0 % LAB HEMETOLOGY METHOD 08/22/2024 12:30 PM EDT [facility] MCV 88.8 79.0 - 98.0 FL LAB HEMETOLOGY METHOD 08/22/2024 12:30 PM EDT [facility] MCH 27.3 27.0 - 32.0 pcg LAB HEMETOLOGY METHOD 08/22/2024 12:30 PM EDT [facility] MCHC 30.7(L) 32.0 - 37.0 g/dL LAB HEMETOLOGY METHOD 08/22/2024 12:30 PM EDT [facility] RDW 15.3(H) 11.0 - 15.0 % LAB HEMETOLOGY METHOD 08/22/2024 12:30 PM EDT [facility] Platelets 273 130 - 400 K/mcL LAB HEMETOLOGY METHOD 08/22/2024 12:30 PM EDT [facility] MPV 9.7 7.0 - 11.0 FL LAB HEMETOLOGY METHOD 08/22/2024 12:30 PM EDT [facility] NRBC 0.0 <1.0 % LAB HEMETOLOGY METHOD 08/22/2024 12:30 PM EDT [facility] NRBC Absolute 0.00 <0.10 K/mcL LAB HEMETOLOGY METHOD 08/22/2024 12:30 PM EDT [facility] Blood Venous blood specimen / Unknown Venipuncture / Unknown 08/22/2024 5:55 AM EDT 08/22/2024 10:51 AM EDT us Reji Sterlign MD LAB BLOOD ORDERABLES Final Resul t [facility] [address] [place] [address], documented in this encounter Visit Diagnoses Diagnosis Type 2 diabetes mellitus without complications (CMS/HCC V24, CMS/HCC V28) documented in this encounter Additional Health Concerns Infection Onset Date Last Indicated Resolved Time ESBL 07/27/2024 10/26/2024 documented as of this encounter Care Teams Sap Portal Consultant Relationship Specialty Start Date End Date Linh Cook MD [address] [place] [phone] PCP - General Internal Medicine 11/05/20 documented as of this encounter
--- OUTSIDE RECORDS SUMMARY | 2024-12-06 15:11 | XMS_ITS | Encounter Summary ---
Author Organization [employer] Address [address] [place] [address] Care Team Providers Care Treating Inspector Name Role Phone Linh Cook MD Primary Care Provide r Encounter Details Date Type Department Care Team (Late st Contact Info) Description 07/25/2024 Lab Requisition [facility] - Main Lab [address] [facility] [place] [address] Reji Sterling MD [address] [place] [address] [address] [place], [phone] Acute kidney failure, unspecified (CMS/HCC V24); [...] Associated Diagnosis Comments COMPLETE BLOOD COUNT Routine 07/25/2024 5:45 AM EDT Acute kidney failure, unspecified ([facility] V24) Cellulitis of left upper limb BASIC METABOLIC PANEL Routine 07/25/2024 5:45 AM EDT Acute kidney failure, unspecified ([facility] V24) Cellulitis of left upper limb documented in this encounter Results * (ABNORMAL) Basic metabolic panel (07/25/2024 5:45 AM EDT) Sodium 134 133 - 145 mmol/L LAB CHEMISTRY METHOD 07/25/2024 12:52 PM [facility] Potassium 4.3 3.5 - 5.5 mmol/L LAB CHEMISTRY METHOD 07/25/2024 12:52 PM [facility] Chloride 97 96 - 110 mmol/L LAB CHEMISTRY METHOD 07/25/2024 12:52 PM [facility] CO2 30 21 - 32 mmol/L LAB CHEMISTRY METHOD 07/25/2024 12:52 PM [facility] Anion Gap 7 3 - 11 LAB CHEMISTRY METHOD 07/25/2024 12:52 PM [facility] Glucose 203(H) 70 - 100 mg/dL LAB CHEMISTRY METHOD 07/25/2024 12:52 PM EDT [facility] BUN 20 5 - 25 mg/dL LAB CHEMISTRY METHOD 07/25/2024 12:52 PM EDT [facility] Creatinine 1.07 0.70 - 1.30 mg/dL LAB CHEMISTRY METHOD 07/25/2024 12:52 PM EDT [facility] eGFR 77 >=60 mL/min/1. 73m2 LAB CHEMISTRY METHOD 07/25/2024 12:52 PM EDT [facility] Comment:Calculation based on the Chronic Kidney Disease Epidemiology Collaboration (CKD-EPI) equation refit without adjustment for race. BUN/Creatinine Ratio 18.7 LAB CHEMISTRY METHOD 07/25/2024 12:52 PM EDT [facility] Calcium 8.3(L) 8.5 - 10.5 mg/dL LAB CHEMISTRY METHOD 07/25/2024 12:52 PM EDT [facility] Blood Venous blood specimen / Unknown Venipuncture / Unknown 07/25/2024 5:45 AM EDT 07/25/2024 10:53 AM EDT us Reji Sterling MD LAB BLOOD ORDERABLES Final Resul t [facility] [address] [place] [address], * (ABNORMAL) Complete blood count (07/25/2024 5:45 AM EDT) WBC 11.4(H) 4.8 - 10.8 K/mcL LAB HEMETOLOGY METHOD 07/25/2024 11:54 AM EDT [facility] RBC 4.70 4.50 - 5.50 M/mcL LAB HEMETOLOGY METHOD 07/25/2024 11:54 AM EDT [facility] Hemoglobin 12.9(L) 13.5 - 17.5 g/dL LAB HEMETOLOGY METHOD 07/25/2024 11:54 AM EDT [facility] Hematocrit 43.5 42.0 - 54.0 % LAB HEMETOLOGY METHOD 07/25/2024 11:54 AM EDT [facility] MCV 93.1 79.0 - 98.0 FL LAB HEMETOLOGY METHOD 07/25/2024 11:54 AM EDT [facility] MCH 27.6 27.0 - 32.0 pcg LAB HEMETOLOGY METHOD 07/25/2024 11:54 AM EDT [facility] MCHC 29.7(L) 32.0 - 37.0 g/dL LAB HEMETOLOGY METHOD 07/25/2024 11:54 AM EDT [facility] RDW 15.6(H) 11.0 - 15.0 % LAB HEMETOLOGY METHOD 07/25/2024 11:54 AM EDT [facility] Platelets 294 130 - 400 K/mcL LAB HEMETOLOGY METHOD 07/25/2024 11:54 AM EDT [facility] MPV 9.8 7.0 - 11.0 FL LAB HEMETOLOGY METHOD 07/25/2024 11:54 AM EDT [facility] NRBC 0.0 <1.0 % LAB HEMETOLOGY METHOD 07/25/2024 11:54 AM EDT [facility] NRBC Absolute 0.00 <0.10 K/mcL LAB HEMETOLOGY METHOD 07/25/2024 11:54 AM EDT [facility] Blood Venous blood specimen / Unknown Venipuncture / Unknown 07/25/2024 5:45 AM EDT 07/25/2024 10:53 AM EDT us Reji Sterling MD LAB BLOOD ORDERABLES Final Resul t [facility] [address] [place] [address], [place] [phone] documented in this encounter Visit Diagnoses Diagnosis Acute kidney failure, unspecified ([facility] V24) Acute kidney failure, unspecified Cellulitis of left upper limb documented in this encounter Additional Health Concerns Infection Onset Date Last Indicated Resolved Time ESBL 07/27/2024 10/26/2024 documented as of this encounter Care Teams Treating Inspector Relationship Specialty Start Date End Date Linh Cook MD [address] [place] [phone] PCP - General Internal Medicine 11/05/20 documented as of this encounter
--- OUTSIDE RECORDS SUMMARY | 2024-12-06 15:11 | XMS_ITS | Encounter Summary ---
Author Organization [employer] Address [address] [facility] [address] [place] [address] Care Team Providers Care Hazardous Waste Material Technician Name Role Phone Linh Cook MD Primary Care Provide r Reason for Visit * Reason Onset Date Comments Appointment Request 12/05/2024 Encounter Details Date Type Department Care Team ([facility] Contact Info) Description 12/05/2024 Telephone [facility] [address] [place], [place] [phone] Linh Cook MD [address] [place] [address] Appointment Request Social History Tobacco Use Types Packs/Day Years [...] encounter Miscellaneous Notes * Telephone Encounter - Ayden Roberts - 12/05/2024 12:31 PM EDT Tc from Rosa Elena, pt pcp requesting to r/s PE. Contact Rosa Elena at [phone]. documented in this encounter Plan of Treatment Upcoming Encounters Date Type Department Care Team (Late st Contact Info) Description 02/15/2025 10:45 AM EST Office Visit [facility] [address] [place] [phone] Linh Cook MD [address] [place] [address] documented as of this encounter Visit Diagnoses Not on filedocumented in this encounter Additional Health Concerns Assessment Noted Time PHQ-9 Depression Total Score: 13 025 1:43 PM EDT documented as of this encounter Care Teams Hazardous Waste Material Technician Relationship Specialty Start Date End Date Linh Cook MD [address] [place] [phone] PCP - General Family Medicine 06/22/18 [facility] 06/10/23 documented as of this encounter
--- OUTSIDE RECORDS SUMMARY | 2024-12-06 15:11 | XMS_ITS | Encounter Summary ---
Author Organization [employer] Address [address] [place] [address] Care Team Providers Care Pinion Sorter Name Role Phone Linh Cook MD Primary Care Provide r Encounter Details Date Type Department Care Team (Late st Contact Info) Description 08/26/2024 Lab Requisition [facility] - Main Lab [address] [facility] [place] [address] Reji Sterling MD [address] [place] [address] [address] [place], [phone] Type 2 diabetes mellitus without complications [...] Associated Diagnosis Comments COMPLETE BLOOD COUNT Routine 08/29/2024 5:49 AM EDT Type 2 diabetes mellitus without complications ([facility] V24, [facility] V28) COMPREHENSIVE METABOLIC PANEL Routine 08/29/2024 5:49 AM EDT Type 2 diabetes mellitus without complications ([facility] V24, [facility] V28) documented in this encounter Results * (ABNORMAL) Comprehensive metabolic panel (08/29/2024 5:49 AM EDT) Sodium 135 133 - 145 mmol/L LAB CHEMISTRY METHOD 08/29/2024 12:16 PM [facility] Potassium 4.9 3.5 - 5.5 mmol/L LAB CHEMISTRY METHOD 08/29/2024 12:16 PM [facility] Chloride 95(L) 96 - 110 mmol/L LAB CHEMISTRY METHOD 08/29/2024 12:16 PM [facility] CO2 31 21 - 32 mmol/L LAB CHEMISTRY METHOD 08/29/2024 12:16 PM [facility] Anion Gap 9 3 - 11 LAB CHEMISTRY METHOD 08/29/2024 12:16 PM [facility] Glucose 204(H) 70 - 100 mg/dL LAB CHEMISTRY METHOD 08/29/2024 12:16 PM [facility] BUN 27(H) 5 - 25 mg/dL LAB CHEMISTRY METHOD 08/29/2024 12:16 PM [facility] Creatinine 1.16 0.70 - 1.30 mg/dL LAB CHEMISTRY METHOD 08/29/2024 12:16 PM [facility] eGFR 69 >=60 mL/min/1. 73m2 LAB CHEMISTRY METHOD 08/29/2024 12:16 PM [facility] Comment:Calculation based on the Chronic Kidney Disease Epidemiology Collaboration (CKD-EPI) equation refit without adjustment for race. BUN/Creatinine Ratio 23.3 LAB CHEMISTRY METHOD 08/29/2024 12:16 PM [facility] Calcium 8.4(L) 8.5 - 10.5 mg/dL LAB CHEMISTRY METHOD 08/29/2024 12:16 PM [facility] AST (SGOT) 22 10 - 42 unit/L LAB CHEMISTRY METHOD 08/29/2024 12:16 PM [facility] ALT (SGPT) 20 10 - 60 unit/L LAB CHEMISTRY METHOD 08/29/2024 12:16 PM [facility] Alkaline Phosphatase 122(H) 42 - 121 unit/L LAB CHEMISTRY METHOD 08/29/2024 12:16 PM [facility] Total Protein 6.7 6.0 - 8.0 g/dL LAB CHEMISTRY METHOD 08/29/2024 12:16 PM [facility] Albumin 2.5(L) 3.2 - 5.0 g/dL LAB CHEMISTRY METHOD 08/29/2024 12:16 PM [facility] Total Bilirubin 0.5 0.0 - 1.4 mg/dL LAB CHEMISTRY METHOD 08/29/2024 12:16 PM [facility] Blood Venous blood specimen / Unknown Venipuncture / Unknown 08/29/2024 5:49 AM EDT 08/29/2024 10:52 AM EDT us Reji Sterling MD LAB BLOOD ORDERABLES Final Resul t [facility] [address] [place] [address], * (ABNORMAL) Complete blood count (08/29/2024 5:49 AM EDT) WBC 13.6(H) 4.8 - 10.8 K/mcL LAB HEMETOLOGY METHOD 08/29/2024 11:19 AM T [facility] RBC 5.00 4.50 - 5.50 M/mcL LAB HEMETOLOGY METHOD 08/29/2024 11:19 AM [facility] Hemoglobin 13.6 13.5 - 17.5 g/dL LAB HEMETOLOGY METHOD 08/29/2024 11:19 AM [facility] Hematocrit 45.6 42.0 - 54.0 % LAB HEMETOLOGY METHOD 08/29/2024 11:19 AM [facility] MCV 90.7 79.0 - 98.0 FL LAB HEMETOLOGY METHOD 08/29/2024 11:19 AM [facility] MCH 27.0 27.0 - 32.0 pcg LAB HEMETOLOGY METHOD 08/29/2024 11:19 AM [facility] MCHC 29.8(L) 32.0 - 37.0 g/dL LAB HEMETOLOGY METHOD 08/29/2024 11:19 AM [facility] RDW 15.7(H) 11.0 - 15.0 % LAB HEMETOLOGY METHOD 08/29/2024 11:19 AM [facility] Platelets 318 130 - 400 K/mcL LAB HEMETOLOGY METHOD 08/29/2024 11:19 AM EDT [facility] MPV 9.7 7.0 - 11.0 FL LAB HEMETOLOGY METHOD 08/29/2024 11:19 AM EDT [facility] NRBC 0.0 <1.0 % LAB HEMETOLOGY METHOD 08/29/2024 11:19 AM EDT [facility] NRBC Absolute 0.00 <0.10 K/mcL LAB HEMETOLOGY METHOD 08/29/2024 11:19 AM EDT [facility] Blood Venous blood specimen / Unknown Venipuncture / Unknown 08/29/2024 5:49 AM EDT 08/29/2024 10:52 AM EDT us Reji Sterling MD LAB BLOOD ORDERABLES Final Resul t [facility] [address] [place] [address], documented in this encounter Visit Diagnoses Diagnosis Type 2 diabetes mellitus without complications (CMS/HCC V24, CMS/HCC V28) documented in this encounter Additional Health Concerns Infection Onset Date Last Indicated Resolved Time ESBL 07/27/2024 10/26/2024 documented as of this encounter Care Teams Pinion Sorter Relationship Specialty Start Date End Date Linh Cook MD [address] [place] [phone] PCP - General Internal Medicine 11/05/20 documented as of this encounter
--- OUTSIDE RECORDS SUMMARY | 2024-12-06 15:11 | XMS_ITS | Encounter Summary ---
Author Organization [employer] Address [address] [place] [address] Care Team Providers Care Shaper Set Up Operator Name Role Phone Linh Cook MD Primary Care Provide r Encounter Details Date Type Department Care Team (Late st Contact Info) Description 08/12/2024 Lab Requisition [facility] - Main Lab 299 [facility] [place] [address] Reji Sterling MD [address] [place] [address] [address] [place], [phone] Type 2 diabetes mellitus without complications [...] Associated Diagnosis Comments COMPLETE BLOOD COUNT Routine 08/15/2024 5:34 AM EDT Type 2 diabetes mellitus without complications ([facility] V24, [facility] V28) COMPREHENSIVE METABOLIC PANEL Routine 08/15/2024 5:34 AM EDT Type 2 diabetes mellitus without complications ([facility] V24, [facility] V28) documented in this encounter Results * (ABNORMAL) Comprehensive metabolic panel (08/15/2024 5:34 AM EDT) Sodium 138 133 - 145 mmol/L LAB CHEMISTRY METHOD 08/15/2024 10:21 AM [facility] Potassium 4.7 3.5 - 5.5 mmol/L LAB CHEMISTRY METHOD 08/15/2024 10:21 AM [facility] Chloride 101 96 - 110 mmol/L LAB CHEMISTRY METHOD 08/15/2024 10:21 AM [facility] CO2 29 21 - 32 mmol/L LAB CHEMISTRY METHOD 08/15/2024 10:21 AM [facility] Anion Gap 8 3 - 11 LAB CHEMISTRY METHOD 08/15/2024 10:21 AM [facility] Glucose 297(H) 70 - 100 mg/dL LAB CHEMISTRY METHOD 08/15/2024 10:21 AM [facility] BUN 18 5 - 25 mg/dL LAB CHEMISTRY METHOD 08/15/2024 10:21 AM [facility] Creatinine 0.84 0.70 - 1.30 mg/dL LAB CHEMISTRY METHOD 08/15/2024 10:21 AM [facility] eGFR 96 >=60 mL/min/1. 73m2 LAB CHEMISTRY METHOD 08/15/2024 10:21 AM [facility] Comment:Calculation based on the Chronic Kidney Disease Epidemiology Collaboration (CKD-EPI) equation refit without adjustment for race. BUN/Creatinine Ratio 21.4 LAB CHEMISTRY METHOD 08/15/2024 10:21 AM [facility] Calcium 9.1 8.5 - 10.5 mg/dL LAB CHEMISTRY METHOD 08/15/2024 10:21 AM [facility] AST (SGOT) 19 10 - 42 unit/L LAB CHEMISTRY METHOD 08/15/2024 10:21 AM [facility] ALT (SGPT) 33 10 - 60 unit/L LAB CHEMISTRY METHOD 08/15/2024 10:21 AM [facility] Alkaline Phosphatase 136(H) 42 - 121 unit/L LAB CHEMISTRY METHOD 08/15/2024 10:21 AM [facility] Total Protein 6.8 6.0 - 8.0 g/dL LAB CHEMISTRY METHOD 08/15/2024 10:21 AM [facility] Albumin 2.8(L) 3.2 - 5.0 g/dL LAB CHEMISTRY METHOD 08/15/2024 10:21 AM [facility] Total Bilirubin 0.5 0.0 - 1.4 mg/dL LAB CHEMISTRY METHOD 08/15/2024 10:21 AM [facility] Blood Venous blood specimen / Unknown Venipuncture / Unknown 08/15/2024 5:34 AM EDT 08/15/2024 10:18 AM EDT us Reji Sterling MD LAB BLOOD ORDERABLES Final Resul t [facility] [address] [place] [address], [place] [phone] * (ABNORMAL) Complete blood count (08/15/2024 5:34 AM EDT) WBC 8.1 4.8 - 10.8 K/mcL LAB HEMETOLOGY METHOD 08/15/2024 10:[address] [facility] RBC 5.10 4.50 - 5.50 M/mcL LAB HEMETOLOGY METHOD 08/15/2024 10:[address] [facility] Hemoglobin 13.8 13.5 - 17.5 g/dL LAB HEMETOLOGY METHOD 08/15/2024 10:[address] [facility] Hematocrit 46.3 42.0 - 54.0 % LAB HEMETOLOGY METHOD 08/15/2024 10:[address] [facility] MCV 90.1 79.0 - 98.0 FL LAB HEMETOLOGY METHOD 08/15/2024 10:[address] [facility] MCH 26.8(L) 27.0 - 32.0 pcg LAB HEMETOLOGY METHOD 08/15/2024 10:[address] [facility] MCHC 29.8(L) 32.0 - 37.0 g/dL LAB HEMETOLOGY METHOD 08/15/2024 10:[address] [facility] RDW 15.2(H) 11.0 - 15.0 % LAB HEMETOLOGY METHOD 08/15/2024 10:[address] [facility] Platelets 228 130 - 400 K/mcL LAB HEMETOLOGY METHOD 08/15/2024 10:[address] [facility] MPV 9.7 7.0 - 11.0 FL LAB HEMETOLOGY METHOD 08/15/2024 10:[address] [facility] NRBC 0.0 <1.0 % LAB HEMETOLOGY METHOD 08/15/2024 10:[address] [facility] NRBC Absolute 0.00 <0.10 K/mcL LAB HEMETOLOGY METHOD 08/15/2024 10:[address] [facility] Blood Venous blood specimen / Unknown Venipuncture / Unknown 08/15/2024 5:34 AM EDT 08/15/2024 10:14 AM EDT us Reji Sterling MD LAB BLOOD ORDERABLES Final Resul t [facility] [address] [place] [address], documented in this encounter Visit Diagnoses Diagnosis Type 2 diabetes mellitus without complications (CMS/HCC V24, CMS/HCC V28) documented in this encounter Additional Health Concerns Infection Onset Date Last Indicated Resolved Time ESBL 07/27/2024 10/26/2024 documented as of this encounter Care Teams Shaper Set Up Operator Relationship Specialty Start Date End Date Linh Cook MD [address] [place] [phone] PCP - General Internal Medicine 11/05/20 documented as of this encounter
--- OUTSIDE RECORDS SUMMARY | 2024-12-06 15:12 | XMS_ITS | Encounter Summary ---
Author Organization [employer] Address [address] [facility] 7t [place] [address] Care Team Providers Care Fish Hatchery Assistant Name Role Phone Linh Cook MD Primary Care Provide r Reason for Visit * Reason Comments Med Refill Encounter Details Date Type Department Care Team ([facility] st Contact Info) Description 01/09/[address] [facility] [address] [place], [place] [phone] Linh Cook MD [address] [place] [address] Social History Tobacco Use Types Packs/Day Years [...] Description 02/15/2025 10:45 AM EST Office Visit [facility] [address] [place] [phone] Linh Cook MD [address] [place] [address] documented as of this encounter Visit Diagnoses Not on filedocumented in this encounter Additional Health Concerns Assessment Noted Time PHQ-9 Depression Total Score: 13 024 2:02 PM EDT documented as of this encounter Care Teams Fish Hatchery Assistant Relationship Specialty Start Date End Date Linh Cook MD [address] [place] [phone] PCP - General Family Medicine 06/22/18 [facility] 06/10/23 documented as of this encounter
--- OUTSIDE RECORDS SUMMARY | 2024-12-06 15:12 | XMS_ITS | Encounter Summary ---
Author Organization [facility], Address [address] [place] [address] Phone Care Team Providers Care Trucksmith Name Role Phone Linh Cook MD Primary Care Provide r Encounter Details Date Type Department Care Team (Late st Contact Info) Description 12/25/2022 Documentation Only [facility] [address] [place] [address] Nash Ingram [address] [place] [address] Social History Tobacco Use Types Packs/Day Years Used Date Smoking Tobacco: Unknown Sex and Gender Information Value Date Recorded Sex Assigned at Not on file Legal Sex Male 10:09 AM EDT Gender Identity Not on file Sexual Orientation Not on file documented as of this encounter Plan of Treatment Upcoming Encounters Date Type Department Care Team (Late st Contact Info) Description 12/07/2024 9:50 AM EDT Office Visit [facility] [address] [place] [phone] George Syed MD [address] [place] [address] [place] [phone] documented as of this encounter Visit Diagnoses Not on filedocumented in this encounter Care Teams Trucksmith Relationship Specialty Start Date End Date Linh Cook MD [address] [place] [phone] PCP - General Internal Medicine 06/05/20 documented as of this encounter
--- OUTSIDE RECORDS SUMMARY | 2024-12-06 15:12 | XMS_ITS | Encounter Summary ---
Author Organization [employer] Address [address] [place] [address] 7t [place] [address] Care Team Providers Care Senior Investigator Name Role Phone Linh Cook MD Primary Care Provide r Reason for Visit * Reason Onset Date Comments Pre-visit Planning 09/24/2022 Encounter Details Date Type Department Care Team ([facility] st Contact Info) Description 09/24/2022 Telephone [facility] [address] [place], [place] [phone] Linh Cook MD [address] [place] [address] Pre-visit Planning Social History Tobacco Use Types Packs/Day Years Used Date Smoking Tobacco: Never Smokeless Tobacco: Never Alcohol Use Standard Drinks/Week Comments Never 0 (1 standard drink = 0.6 oz pur e alcohol) Depression Answer Date Recorded Patient Health Questionnaire-9 Score 8 06/25/2022 Depression Answer Date Recorded Patient Health Questionnaire-2 Score 4 06/25/2022 Sex and Gender Information Value Date Recorded Sex Assigned at Male 01/06/2022 10:35 AM EDT Legal Sex Male 10:35 AM EDT Gender Identity Male 01/06/2022 10:35 AM EDT Sexual Orientation Straight 01/06/2022 10 :35 AM EDT documented as of this encounter Miscellaneous Notes * Telephone Encounter - Safia Hamm - 09/24/2022 11:33 AM EDT Tc from pt returning nurses call for PVP. documented in this encounter Plan of Treatment Upcoming Encounters Date Type Department Care Team (Late st Contact Info) Description 02/15/2025 10:45 AM EST Office Visit [facility] [address] [place] [address] Linh Cook MD [address] [place] [address] documented as of this encounter Visit Diagnoses Not on filedocumented in this encounter Additional Health Concerns Assessment Noted Time PHQ-9 Depression Total Score: 8 06/26/19 23 3:29 PM EDT documented as of this encounter Care Teams Senior Investigator Relationship Specialty Start Date End Date Linh Cook MD [address] [place] [address] PCP - General Family Medicine 06/22/18 [facility] 06/10/23 documented as of this encounter
--- OUTSIDE RECORDS SUMMARY | 2024-12-06 15:12 | XMS_ITS | Encounter Summary ---
Author Organization [employer] Address [address] [place] [address] Care Team Providers Care Orthopedics Teacher Name Role Phone Linh Cook MD Primary Care Provide r Encounter Details Date Type Department Care Team (Late st Contact Info) Description 07/01/2024 Lab Requisition [facility] - Main Lab 299 [facility] [place] [address] Reji Sterling MD [address] [place] [address] [address] [place], [phone] Cellulitis of left upper limb; Acute kidney failure, unspecified (CMS/HCC V24) Social History Tobacco Use Types Packs/Day Years [...] Associated Diagnosis Comments COMPLETE BLOOD COUNT Routine 07/01/2024 4:58 AM EDT Cellulitis of left upper limb Acute kidney failure, unspecified ([facility] V24) COMPREHENSIVE METABOLIC PANEL Routine 07/01/2024 4:58 AM EDT Cellulitis of left upper limb Acute kidney failure, unspecified ([facility] V24) documented in this encounter Results * (ABNORMAL) Comprehensive metabolic panel (07/01/2024 4:58 AM EDT) Sodium 141 133 - 145 mmol/L LAB CHEMISTRY METHOD 07/01/2024 11:29 AM [facility] Potassium 5.4 3.5 - 5.5 mmol/L LAB CHEMISTRY METHOD 07/01/2024 11:29 AM [facility] Chloride 106 96 - 110 mmol/L LAB CHEMISTRY METHOD 07/01/2024 11:29 AM [facility] CO2 33(H) 21 - 32 mmol/L LAB CHEMISTRY METHOD 07/01/2024 11:29 AM [facility] Anion Gap 2(L) 3 - 11 LAB CHEMISTRY METHOD 07/01/2024 11:29 AM [facility] Glucose 167(H) 70 - 100 mg/dL LAB CHEMISTRY METHOD 07/01/2024 11:29 AM [facility] BUN 23 5 - 25 mg/dL LAB CHEMISTRY METHOD 07/01/2024 11:29 AM [facility] Creatinine 0.97 0.70 - 1.30 mg/dL LAB CHEMISTRY METHOD 07/01/2024 11:29 AM [facility] eGFR 86 >=60 mL/min/1. 73m2 LAB CHEMISTRY METHOD 07/01/2024 11:29 AM [facility] Comment:Calculation based on the Chronic Kidney Disease Epidemiology Collaboration (CKD-EPI) equation refit without adjustment for race. BUN/Creatinine Ratio 23.7 LAB CHEMISTRY METHOD 07/01/2024 11:29 AM [facility] Calcium 8.1(L) 8.5 - 10.5 mg/dL LAB CHEMISTRY METHOD 07/01/2024 11:29 AM [facility] AST (SGOT) 35 10 - 42 unit/L LAB CHEMISTRY METHOD 07/01/2024 11:29 AM [facility] ALT (SGPT) 27 10 - 60 unit/L LAB CHEMISTRY METHOD 07/01/2024 11:29 AM [facility] Alkaline Phosphatase 94 42 - 121 unit/L LAB CHEMISTRY METHOD 07/01/2024 11:29 AM [facility] Total Protein 6.2 6.0 - 8.0 g/dL LAB CHEMISTRY METHOD 07/01/2024 11:29 AM [facility] Albumin 2.5(L) 3.2 - 5.0 g/dL LAB CHEMISTRY METHOD 07/01/2024 11:29 AM [facility] Total Bilirubin 0.4 0.0 - 1.4 mg/dL LAB CHEMISTRY METHOD 07/01/2024 11:29 AM [facility] Blood Venous blood specimen / Unknown Venipuncture / Unknown 07/01/2024 4:58 AM EDT 07/01/2024 8:34 AM EDT us Reji Sterling MD LAB BLOOD ORDERABLES Final Resul t [facility] [address] [place] [address], [place] [phone] * (ABNORMAL) Complete blood count (07/01/2024 4:58 AM EDT) WBC 8.4 4.8 - 10.8 K/mcL LAB HEMETOLOGY METHOD 07/01/2024 9:19 AM EDT [facility] RBC 4.20(L) 4.50 - 5.50 M/mcL LAB HEMETOLOGY METHOD 07/01/2024 9:19 AM [facility] Hemoglobin 12.3(L) 13.5 - 17.5 g/dL LAB HEMETOLOGY METHOD 07/01/2024 9:19 AM [facility] Hematocrit 40.3(L) 42.0 - 54.0 % LAB HEMETOLOGY METHOD 07/01/2024 9:19 AM [facility] MCV 95.3 79.0 - 98.0 FL LAB HEMETOLOGY METHOD 07/01/2024 9:19 AM [facility] MCH 29.1 27.0 - 32.0 pcg LAB HEMETOLOGY METHOD 07/01/2024 9:19 AM [facility] MCHC 30.5(L) 32.0 - 37.0 g/dL LAB HEMETOLOGY METHOD 07/01/2024 9:19 AM [facility] RDW 13.6 11.0 - 15.0 % LAB HEMETOLOGY METHOD 07/01/2024 9:19 AM [facility] Platelets 416(H) 130 - 400 K/mcL LAB HEMETOLOGY METHOD 07/01/2024 9:19 AM EDT [facility] MPV 9.4 7.0 - 11.0 FL LAB HEMETOLOGY METHOD 07/01/2024 9:19 AM EDT [facility] NRBC 0.0 <1.0 % LAB HEMETOLOGY METHOD 07/01/2024 9:19 AM EDT [facility] NRBC Absolute 0.00 <0.10 K/mcL LAB HEMETOLOGY METHOD 07/01/2024 9:19 AM EDT [facility] Blood Venous blood specimen / Unknown Venipuncture / Unknown 07/01/2024 4:58 AM EDT 07/01/2024 8:34 AM EDT us Reji Sterling MD LAB BLOOD ORDERABLES Final Resul t [facility] [address] [place] [address], documented in this encounter Visit Diagnoses Diagnosis Cellulitis of left upper limb Acute kidney failure, unspecified (CMS/HCC V24) Acute kidney failure, unspecified documented in this encounter Additional Health Concerns Infection Onset Date Last Indicated Resolved Time ESBL 07/27/2024 10/26/2024 documented as of this encounter Care Teams Orthopedics Teacher Relationship Specialty Start Date End Date Linh Cook MD [address] [place] [phone] PCP - General Internal Medicine 11/05/20 documented as of this encounter
--- OUTSIDE RECORDS SUMMARY | 2024-12-06 15:12 | XMS_ITS | Encounter Summary ---
Author Organization [facility], Address [address] [place] [address] Phone Care Team Providers Care Cartography Teacher Name Role Phone Linh Cook MD Primary Care Provide r Encounter Details Date Type Department Care Team (Late st Contact Info) Description 12/31/2022 Documentation Only [facility] [address] [place] [address] Linh Cook MD [address] [phone] Social History Tobacco Use Types Packs/Day Years [...] Visit [facility] [address] [place] [address] George Syed MD [address] [place] [address] [place] [address] documented as of this encounter Visit Diagnoses Not on filedocumented in this encounter Care Teams Cartography Teacher Relationship Specialty Start Date End Date Linh Cook MD [address] [phone] PCP - General Internal Medicine 06/05/20 documented as of this encounter
--- OUTSIDE RECORDS SUMMARY | 2024-12-06 15:12 | XMS_ITS | Clinical Summary ---
Author Organization [facility], Address [address] [place] [address] [place] [address] Phone Care Team Providers Care Executive Talent Acquisition Consultant Name Role Phone Linh Cook MD [...] Visit [facility] [place], [address] [facility] [place] [address] George Syed MD [address] [facility] [place] [place] [address] Health Maintenance Due Date Last [...] A1C 9.2(H) 4.8 - 5.6 % [facility] Comment: Prediabetes: 5.7 - 6.4 Diabetes: >6.4 Glycemic control for adults with diabetes: <7.0 Blood specimen (specimen) Venous blood / Unknown 12/11/2023 1:43 PM EDT 12/11/2023 Leonid CABALLERO LAB BLOOD ORDERABLES Final Re sult [facility] [address] [place] [phone] from Last 3 Months or Most Recently Relevant to Health Maintenance Insurance [facility] ([id number]) [facility] ([id number]) Care Teams Executive Talent Acquisition Consultant Relationship Specialty Start Date End Date Linh Cook MD [address] [place] [phone] PCP - General Internal Medicine 06/05/20
--- OUTSIDE RECORDS SUMMARY | 2024-12-06 15:12 | XMS_ITS | Encounter Summary ---
Author Organization [employer] Address [address] [place] [address] Care Team Providers Care Driver Sales Name Role Phone Linh Cook MD Primary Care Provide r Encounter Details Date Type Department Care Team (Late st Contact Info) Description 07/02/2024 Lab Requisition [facility] - Main Lab [address] [facility] [place] [address] Reji Sterling MD [address] [place] [address] [address] [place], [phone] Cellulitis of left upper limb; Acute [...] Associated Diagnosis Comments COMPLETE BLOOD COUNT Routine 07/04/2024 5:45 AM EDT Cellulitis of left upper limb Acute kidney failure, unspecified ([facility] V24) BASIC METABOLIC PANEL Routine 07/04/2024 5:45 AM EDT Cellulitis of left upper limb Acute kidney failure, unspecified ([facility] V24) documented in this encounter Results * (ABNORMAL) Basic metabolic panel (07/04/2024 5:45 AM EDT) Sodium 139 133 - 145 mmol/L LAB CHEMISTRY METHOD 07/04/2024 2:54 PM [facility] Potassium 5.8(H) 3.5 - 5.5 mmol/L LAB CHEMISTRY METHOD 07/04/2024 2:54 PM [facility] Comment:Hemolysis present Chloride 104 96 - 110 mmol/L LAB CHEMISTRY METHOD 07/04/2024 2:54 PM [facility] CO2 26 21 - 32 mmol/L LAB CHEMISTRY METHOD 07/04/2024 2:54 PM [facility] Anion Gap 9 3 - 11 LAB CHEMISTRY METHOD 07/04/2024 2:54 PM [facility] Glucose 155(H) 70 - 100 mg/dL LAB CHEMISTRY METHOD 07/04/2024 2:54 PM EDT [facility] BUN 21 5 - 25 mg/dL LAB CHEMISTRY METHOD 07/04/2024 2:54 PM EDT [facility] Creatinine 0.98 0.70 - 1.30 mg/dL LAB CHEMISTRY METHOD 07/04/2024 2:54 PM EDT [facility] eGFR 85 >=60 mL/min/1. 73m2 LAB CHEMISTRY METHOD 07/04/2024 2:54 PM EDT [facility] Comment:Calculation based on the Chronic Kidney Disease Epidemiology Collaboration (CKD-EPI) equation refit without adjustment for race. BUN/Creatinine Ratio 21.4 LAB CHEMISTRY METHOD 07/04/2024 2:54 PM EDT [facility] Calcium 8.7 8.5 - 10.5 mg/dL LAB CHEMISTRY METHOD 07/04/2024 2:54 PM EDT [facility] Blood Venous blood specimen / Unknown Venipuncture / Unknown 07/04/2024 5:45 AM EDT 07/04/2024 9:55 AM EDT us Reji Sterling MD LAB BLOOD ORDERABLES Final Resul t [facility] [address] [place] [address], * (ABNORMAL) Complete blood count (07/04/2024 5:45 AM EDT) WBC 9.6 4.8 - 10.8 K/mcL LAB HEMETOLOGY METHOD 07/04/2024 10:20 AM EDT [facility] RBC 4.70 4.50 - 5.50 M/mcL LAB HEMETOLOGY METHOD 07/04/2024 10:20 AM EDT [facility] Hemoglobin 13.5 13.5 - 17.5 g/dL LAB HEMETOLOGY METHOD 07/04/2024 10:20 AM EDT [facility] Hematocrit 45.4 42.0 - 54.0 % LAB HEMETOLOGY METHOD 07/04/2024 10:20 AM EDT [facility] MCV 97.2 79.0 - 98.0 FL LAB HEMETOLOGY METHOD 07/04/2024 10:20 AM EDT [facility] MCH 28.9 27.0 - 32.0 pcg LAB HEMETOLOGY METHOD 07/04/2024 10:20 AM EDT [facility] MCHC 29.7(L) 32.0 - 37.0 g/dL LAB HEMETOLOGY METHOD 07/04/2024 10:20 AM EDT [facility] RDW 14.1 11.0 - 15.0 % LAB HEMETOLOGY METHOD 07/04/2024 10:20 AM EDT [facility] Platelets 579(H) 130 - 400 K/mcL LAB HEMETOLOGY METHOD 07/04/2024 10:20 AM EDT [facility] MPV 9.4 7.0 - 11.0 FL LAB HEMETOLOGY METHOD 07/04/2024 10:20 AM EDT [facility] NRBC 0.0 <1.0 % LAB HEMETOLOGY METHOD 07/04/2024 10:20 AM EDT [facility] NRBC Absolute 0.00 <0.10 K/mcL LAB HEMETOLOGY METHOD 07/04/2024 10:20 AM T [facility] Blood Venous blood specimen / Unknown Venipuncture / Unknown 07/04/2024 5:45 AM EDT 07/04/2024 9:55 AM EDT us Reji Sterling MD LAB BLOOD ORDERABLES Final Resul t [facility] [address] [place], [place] [address] [phone] documented in this encounter Visit Diagnoses Diagnosis Cellulitis of left upper limb Acute kidney failure, unspecified ([facility] V24) Acute kidney failure, unspecified documented in this encounter Additional Health Concerns Infection Onset Date Last Indicated Resolved Time ESBL 07/27/2024 10/26/2024 documented as of this encounter Care Teams Driver Sales Relationship Specialty Start Date End Date Linh Cook MD [address] [place] [phone] PCP - General Internal Medicine 11/05/20 documented as of this encounter
--- OUTSIDE RECORDS SUMMARY | 2024-12-06 15:12 | XMS_ITS | Encounter Summary ---
Author Organization [employer] Address [address] [facility] [address]t [place] [address] Care Team Providers Care Water Mechanic Name Role Phone Linh Cook MD Primary Care Provide r Reason for Visit * Reason Comments Med Refill Encounter Details Date Type Department Care Team ([facility] st Contact Info) Description 12/07/2023 Refill [facility] [address] [place], [place] [phone] Linh Cook MD [address] [place] [address] Essential hypertension Social History Tobacco Use Types Packs/Day Years [...] Description 02/15/2025 10:45 AM EST Office Visit [facility] [address] [place] [address] Linh Cook MD [address] [place] [address] documented as of this encounter Visit Diagnoses Diagnosis Essential hypertension Unspecified essential hypertension documented in this encounter Additional Health Concerns Assessment Noted Time PHQ-9 Depression Total Score: 13 024 2:02 PM EDT documented as of this encounter Care Teams Water Mechanic Relationship Specialty Start Date End Date Linh Cook MD [address] [place] [phone] PCP - General Family Medicine 06/22/18 [facility] 06/10/23 documented as of this encounter
--- OUTSIDE RECORDS SUMMARY | 2024-12-06 15:12 | XMS_ITS | Encounter Summary ---
Author Organization [employer] Address [address] [facility] 7t [place] [address] Care Team Providers Care Cash Applications Representative Name Role Phone Linh Cook MD Primary Care Provide r Encounter Details Date Type Department Care Team ([facility] st Contact Info) Description 03/04/2023 Orders Only [facility] MEDICINE [address] [place], [place] [phone] Linh Cook MD [address] [place], [place] [phone] Diabetic polyneuropathy associated with type 2 diabetes mellitus (CMS/HCC) Social History Tobacco Use Types Packs/Day Years Used Date Smoking Tobacco: Never Smokeless Tobacco: Never Alcohol Use Standard Drinks/Week Comments Never 0 (1 standard drink = 0.6 oz pur e alcohol) Depression Answer Date Recorded Patient Health Questionnaire-9 Score 8 06/25/2022 Housing Stability Answer Date Recorded What is your housing situation today? I have gavinoaidan richard 12/24/[address] you li ve. Do you have problems with any of the following? None of the above 12/24/2022 Food Insecurity Answer Date Recorded Within the past 12 months, y ou worried that your food would run out before you got money to buy more: Never True 12/24/2022 Within the past 12 months,th e food you bought just didn't last and you didn't have enough money to get more: Never True Transportation Answer Date Recorded In the past 12 months, has l ack of transportation kept you from medical appts, meetings, work or from getting things needed for daily living? Yes, it has kept me from medical appointments or getting medications. 12/15/2022 Utilities Answer Date Recorded In the past 12 months, has t he electric, gas, oil or water company threatened to shut off services in your home? No 12/24/2022 Depression Answer Date Recorded Patient Health Questionnaire-2 [...] Description 02/15/2025 10:45 AM EST Office Visit [facility] MEDICINE [address] [place] [phone] Linh Cook MD [address] [place] [address] documented as of this encounter Visit Diagnoses Diagnosis Diabetic polyneuropathy associated with type 2 diabetes mellitus (HCC) documented in this encounter Additional Health Concerns Assessment Noted Time PHQ-9 Depression Total Score: 8 06/26/19 23 3:29 PM EDT documented as of this encounter Care Teams Cash Applications Representative Relationship Specialty Start Date End Date Linh Cook MD [address] [place] [phone] PCP - General Family Medicine 06/22/18 [facility] 06/10/23 documented as of this encounter
--- OUTSIDE RECORDS SUMMARY | 2024-12-06 15:12 | XMS_ITS | Encounter Summary ---
Author Organization [employer] Address [address] [place] [address] Care Team Providers Care Machine Sewer Name Role Phone Linh Cook MD Primary Care Provide r Encounter Details Date Type Department Care Team (Late st Contact Info) Description 07/06/2024 Lab Requisition [facility] - Main Lab [address] [facility] [place] [address] Reji Sterling MD [address] [place] [address] [address] [place], [phone] Heart failure, unspecified (CMS/HCC V24, CMS/HCC V28); Hyperkalemia Social History Tobacco Use Types Packs/Day Years [...] Procedure Name Priority Date/Time Associated Diagnosis Comments BASIC METABOLIC PANEL Routine 07/06/2024 5:39 AM EDT Heart failure, unspecified ([facility] V24, [facility] V28) Hyperkalemia documented in this encounter Results * (ABNORMAL) Basic metabolic panel (07/06/2024 5:39 AM EDT) Sodium 139 133 - 145 mmol/L LAB CHEMISTRY METHOD 07/06/2024 11:36 AM [facility] Potassium 5.0 3.5 - 5.5 mmol/L LAB CHEMISTRY METHOD 07/06/2024 11:36 AM [facility] Chloride 102 96 - 110 mmol/L LAB CHEMISTRY METHOD 07/06/2024 11:36 AM [facility] CO2 28 21 - 32 mmol/L LAB CHEMISTRY METHOD 07/06/2024 11:36 AM [facility] Anion Gap 9 3 - 11 LAB CHEMISTRY METHOD 07/06/2024 11:36 AM [facility] Glucose 257(H) 70 - 100 mg/dL LAB CHEMISTRY METHOD 07/06/2024 11:36 AM [facility] BUN 19 5 - 25 mg/dL LAB CHEMISTRY METHOD 07/06/2024 11:36 AM EDT [facility] Creatinine 1.05 0.70 - 1.30 mg/dL LAB CHEMISTRY METHOD 07/06/2024 11:36 AM EDT [facility] eGFR 78 >=60 mL/min/1. 73m2 LAB CHEMISTRY METHOD 07/06/2024 11:36 AM EDT [facility] Comment:Calculation based on the Chronic Kidney Disease Epidemiology Collaboration (CKD-EPI) equation refit without adjustment for race. BUN/Creatinine Ratio 18.1 LAB CHEMISTRY METHOD 07/06/2024 11:36 AM T [facility] Calcium 8.3(L) 8.5 - 10.5 mg/dL LAB CHEMISTRY METHOD 07/06/2024 11:36 AM T [facility] Blood Venous blood specimen / Unknown Venipuncture / Unknown 07/06/2024 5:39 AM EDT 07/06/2024 10:30 AM EDT us Reji Sterling MD LAB BLOOD ORDERABLES Final Resul t [facility] [address] [place] [address], documented in this encounter Visit Diagnoses Diagnosis Heart failure, unspecified (CMS/HCC V24, CMS/HCC V28) Heart failure, unspecified Hyperkalemia Hyperpotassemia documented in this encounter Additional Health Concerns Infection Onset Date Last Indicated Resolved Time ESBL 07/27/2024 10/26/2024 documented as of this encounter Care Teams Machine Sewer Relationship Specialty Start Date End Date Linh Cook MD [address] [place] [phone] PCP - General Internal Medicine 11/05/20 documented as of this encounter
--- OUTSIDE RECORDS SUMMARY | 2024-12-06 15:12 | XMS_ITS | Encounter Summary ---
Author Organization [employer] Address [address] [facility] 7[address] [place] [address] Care Team Providers Care Division Traffic Superintendent Name Role Phone Linh Cook MD Primary Care Provide r Reason for Visit * Reason Comments Med Refill Encounter Details Date Type Department Care Team ([facility] st Contact Info) Description 03/04/2023 Refill [facility] PEDS [address] [place], [place] [phone] Linh Cook MD [address] [place] [address] Diabetic peripheral neuropathy (CMS/HCC) Social History Tobacco Use Types Packs/Day Years Used Date Smoking Tobacco: Never Smokeless Tobacco: Never Alcohol Use Standard Drinks/Week Comments Never 0 (1 standard drink = 0.6 oz pur e alcohol) Depression Answer Date Recorded Patient Health Questionnaire-9 Score 8 06/25/2022 Housing Stability Answer Date Recorded What is your housing situation today? I have gavino richard 12/24/[address] you [...] Description 02/15/2025 10:45 AM EST Office Visit [facility] MEDICINE [address] [place] [address] Linh Cook MD [address] [place] [address] documented as of this encounter Visit Diagnoses Diagnosis Diabetic peripheral neuropathy (HCC) Type II or unspecified type diabetes mellitus with neurological manifestations, not stated as uncontrolled documented in this encounter Additional Health Concerns Assessment Noted Time PHQ-9 Depression Total Score: 8 06/26/19 23 3:29 PM EDT documented as of this encounter Care Teams Division Traffic Superintendent Relationship Specialty Start Date End Date Linh Cook MD [address] [place] [address] PCP - General Family Medicine 06/22/18 [facility] 06/10/23 documented as of this encounter
--- OUTSIDE RECORDS SUMMARY | 2024-12-06 15:12 | XMS_ITS | Clinical Summary ---
Author Organization [employer] Address [address] [place] [address] Care Team Providers Care Mainframe Systems Programmer Name Role Phone Linh Cook MD Primary Care Provide r Allergies Active Allergy Reactions Criticality Noted Date Comments Lisinopril Cough,Nausea Only Medium 01/20/2018 cough Medications Xarelto 20 MG tablet Take 20 mg by mouth 1 (one) time each day. 06/17/19 23 Active Continuous Blood Gluc Sensor (FreeStyle Home 2 Sensor) [facility] 1 each on the skin 3 times daily. 06/10/19 23 Active albuterol 108 (90 Base) MCG/ACT inhaler Inhale 2 puffs every 4 (four) hours if needed. 08/31/19 21 Active acetaminophen (Tylenol 8 Hour) 650 MG ER tablet Take 2 tablets by mouth every 8 (eight) hours. 07/18/19 22 Active sennosides (Senokot) 8.6 MG tablet Take 1 tablet by mouth at bedtime. Active allopurinol (Zyloprim) 100 MG tablet Take 1 tablet by mouth in the morning. 06/13/19 24 Active Xolair 75 MG/0.5ML injection Inject 375 mg under the skin every 14 (fourteen) days. 05/14/19 24 Active Xolair 150 MG/ML injection Inject 375 mg under the skin every 14 (fourteen) days. 02/11/20 23 Active Entresto 49-51 MG tabletIndications: Chronic combined systolic and diastolic heart failure (HCC) Take 1 tablet by mouth 2 times daily. 60 tablet 06/16/19 24 Active empagliflozin (Jardiance) 10 MGIndications:Type 2 diabetes mellitus with hyperglycemia, with long-term current use of insulin (HCC) Take 1 tablet (10 mg) by mouth in the morning. 30 tablet 2 06/16/19 24 Active colchicine 0.6 MG tablet ON DAY ONE TAKE 2 CAPSULES THEN AFTER ONE HOUR ONE CAPSULE AND THEN ONE CAPSULE TWICE DAILY UNTIL FLARE RESOLVES 30 tablet 01/19/20 24 Active atorvastatin (Lipitor) 40 MG tabletIndications: Essential hypertension TAKE 1 TABLET BY MOUTH EVERY MORNING 30 tablet 1 03/01/20 24 Active omeprazole (PriLOSEC) [address] capsule Take 1 capsule (40 mg) by mouth before breakfast. Do not crush or chew.TAKE 1 CAPSULE (40 MG) BY MOUTH IN THE MORNING. 30 capsule 1 05/04/19 25 Active gabapentin (Neurontin) 800 MG tabletIndications: Diabetic polyneuropathy associated with type 2 diabetes mellitus (HCC) TAKE 1 TABLET (800 MG) BY MOUTH 3 TIMES DAILY. 90 tablet 10 10/05/19 25 Active bumetanide (Bumex) 2 MG tablet Take 1 tablet by mouth Once per day. 09/13/19 25 Active Lantus SoloStar 100 UNIT/ML pen Inject 50 Units under the skin Once per day. 10/05/19 25 Active insulin lispro (HumaLOG) 100 UNIT/ML injection Inject 19 to 34 units subcutaneous three times a day before meals according to sliding scale comments 10/05/19 25 Active BD Insulin Syringe U-500 31G X 6MM 0.5 ML misc Use as directed. 10/04/19 25 Active Toprol XL 50 MG 24 hr tablet Take 1 tablet by mouth Once per day. 09/13/19 25 Active spironolactone (Aldactone) 25 MG tablet Take 1 tablet by mouth Once per day. 07/01/19 25 Active Mounjaro 2.5 MG/0.5ML solution auto-injector Inject 2.5 mg under the skin every 7 (seven) days. 01/05/20 24 Active cyanocobalamin (Vitamin B-12) 1000 MCG tablet Take 1 tablet by mouth Once per day. Active oxyCODONE (Roxicodone) 5 MG immediate release tabletIndications: Chronic pain of both knees Take 1 tablet (5 mg) by mouth every 8 (eight) hours if needed for severe pain. 15 tablet 10/15/19 25 Active Active Problems Problem Noted Date Diagnosed Date Unstable gait 01/04/2024 Assessment & Plan (01/04/2024 1:54 PM EDT): I will prescribe for patient bariatric roller walker Chronic fatigue 01/04/2024 JANELL (obstructive sleep apnea) 01/04/2024 Acute gout of right hand 10/05/2023 Assessment & Plan (10/05/2023 11:18 AM EDT): Clinical picture consistent with gout flare Colchicine 1.2mg then after 1 hour 0.6mg the next day 0.6mg BID until filare resolves, after this I will possibly maintain him on colchicine or allopurinol Encounter for preventive care 10/05/2023 Assessment & Plan (10/05/2023 11:18 AM EDT): See HPI Colon cancer screening 09/15/2023 Cellulitis of left upper extremity 06/16/2023 Assessment & Plan (06/16/2023 4:23 PM EDT): Resolved now patient finish his antibiotics Acute gout of left elbow 06/16/2023 Assessment & Plan (06/16/2023 4:24 PM EDT): C/w allopurinol and colchicine patient has upcoming appointment with rheumatology Pain of left middle finger 03/27/2023 Diabetic polyneuropathy asso ciated with type 2 diabetes mellitus 12/03/2022 Encounter for preventative adult health care exa mination 10/01/2022 Assessment & Plan (10/01/2022 12:44 PM EDT): Refer to HPI GERD (gastroesophageal reflux disease) Assessment & Plan (10/01/2022 12:44 PM EDT): I advise patient to avoid NSAIDs, spicy and acid food, I advise to eat at the same time every day, I advise to elevate the head of the bed and take medications as prescribe BMI 45.0-49.9, adult ([facility]) 10/01/2022 Allergic rhinitis 06/26/2022 Diabetic retinopathy 06/26/2022 Hepatitis C virus infection 06/26/2022 Nonischemic congestive cardiomyopathy (CMS/HCC) 06/26/2022 Assessment & Plan (01/04/2024 4:35 PM EDT): Continue tot follow with cardiology Uncontrolled type 2 diabetes mellitus 06/26/2022 Abnormal gait 05/14/2022 Acute on chronic combined sy stolic and diastolic heart failure 05/14/2022 Bilateral chronic knee pain 05/14/2022 Cirrhosis of liver (CMS/HCC) 05/14/2022 Essential hypertension 05/14/2022 Assessment & Plan (10/05/2023 11:16 AM EDT): - Aerobic exercise to reduce BP. Initial goal of 30 min walk 3-5x/week. Increase as tolerated. - low-sodium diet (goal: <2g/day) and heart healthy diet such as DASH to reduce BP and prevent ASCVD. - Home BP monitoring 1-2 x day with goal of <140/90. - Seek immediate medical attention for chest pain, palpitations, SOB, syncope, or sudden changes in mental status. - Do not change or discontinue current prescriptions without first consulting health care provider Assessment & Plan (03/27/2023 2:30 PM EST): Maintenance: BMP: up to date Lipid Panel: up to date ASCVD Risk: on statin 40mg daily - Aerobic exercise to reduce BP. Initial goal of 30 min walk 3-5x/week. Increase as tolerated. - low-sodium diet (goal: <2g/day) and heart healthy diet such as DASH to reduce BP and prevent ASCVD. - Home BP monitoring 1-2 x day with goal of <140/90. - Seek immediate medical attention for chest pain, palpitations, SOB, syncope, or sudden changes in mental status. - Do not change or discontinue current prescriptions without first consulting health care provider Assessment & Plan (12/03/2022 4:21 PM EDT): - Aerobic exercise to reduce BP. Initial goal of 30 min walk 3-5x/week. Increase as tolerated. - low-sodium diet (goal: <2g/day) and heart healthy diet such as DASH to reduce BP and prevent ASCVD. - Home BP monitoring 1-2 x day with goal of <140/90. - Seek immediate medical attention for chest pain, palpitations, SOB, syncope, or sudden changes in mental status. - Do not change or discontinue current prescriptions without first consulting health care provider Assessment & Plan (10/01/2022 12:41 PM EDT): Maintenance: BMP: ordered today Lipid Panel: ordered today ASCVD Risk: patient already on max statin - Aerobic exercise to reduce BP. Initial goal of 30 min walk 3-5x/week. Increase as tolerated. - low-sodium diet (goal: <2g/day) and heart healthy diet such as DASH to reduce BP and prevent ASCVD. - Home BP monitoring 1-2 x day with goal of <140/90. - Seek immediate medical attention for chest pain, palpitations, SOB, syncope, or sudden changes in mental status. - Do not change or discontinue current prescriptions without first consulting health care provider Hypertensive disorder 05/14/2022 Assessment & Plan (01/04/2024 4:35 PM EDT): Maintenance: BMP: up to date Lipid Panel: up to date ASCVD Risk: 18.9% on atorvastatin 40mg daily and xeralto - Aerobic exercise to reduce BP. Initial goal of 30 min walk 3-5x/week. Increase as tolerated. - low-sodium diet (goal: <2g/day) and heart healthy diet such as DASH to reduce BP and prevent ASCVD. - Home BP monitoring 1-2 x day with goal of <140/90. - Seek immediate medical attention for chest pain, palpitations, SOB, syncope, or sudden changes in mental status. - Do not change or discontinue current prescriptions without first consulting health care provider Peripheral vascular disease 05/14/2022 Obstructive sleep apnea syndrome 05/14/2022 Primary localized osteoarthritis of knees, bilat eral 05/14/2022 Primary osteoarthritis of both knees 05/14/2022 Assessment & Plan (09/17/2023 12:29 PM EDT): Orthopedics referral Restrictive lung disease 05/14/2022 Severe obesity (CMS/HCC) 05/14/2022 Severe persistent asthma 05/14/2022 Assessment & Plan (09/17/2023 12:29 PM EDT): Continue to follow by pulmonology Assessment & Plan (03/27/2023 2:30 PM EST): C/w painter tumbling barrel and same medication regimen I will prescribe for him nebulizer machine Vascular insufficiency 05/14/2022 Diabetes 08/13/2021 Assessment & Plan (03/27/2023 2:33 PM EST): Patient is being follow by endocrinology - Lab Results Component Value Date HGBA1C 10.0 (A) 03/27/2023 HGBA1C 10.4 (A) 12/03/2022 HGBA1C 9.0 (A) 10/01/2022 - Lab Results Component Value Date MICROALBUR 38.0 10/01/2022 CREATININE 1.43 (H) 12/03/2022 - Diabetic eye exam:patient reports he is up to date - Diabetic foot exam:referral today - Continue lifestyle modifications - Continue current medications - continue to follow with endocrinology Assessment & Plan (12/05/2022 3:53 PM EDT): Continue to follow with endocrinology Patient has his insulin pump Patient's diabetes has being challenging to manage, he is insulin dependent, A1c has being above 10 for a long time, it is my medical opinion patient will benefit form continuous glucose monitor to try to achieve better results with treatment Assessment & Plan (06/26/2022 12:58 PM EDT): Uncontrolled Will have insulin pump inserted next week Followup with endocrinology Continue specialty care in podiatry and eye care followup with PCP re: weight loss questions H/O heart bypass surgery 08/13/2021 LUCA (acute kidney injury) 07/05/2020 Assessment & Plan (06/16/2023 4:24 PM EDT): BMP will be check Patient has upcoming appointment with nephrology Assessment & Plan (12/03/2022 4:23 PM EDT): avoid nephrotoxic medications I will monitor BMP and eGFR and adjust medications accordingly Patient already refer to nephrology Type 2 diabetes mellitus wit h diabetic neuropathy, with long-term current use of insulin 01/19/2018 Assessment & Plan (01/04/2024 4:33 PM EDT): Diabetes is: not controlled but improved - Lab Results Component Value Date HGBA1C 8.0 (A) 01/04/2024 HGBA1C 10.0 (A) 09/15/2023 HGBA1C 12.1 (A) 06/16/2023 - Lab Results Component Value Date MICROALBUR 48.0 10/05/2023 CREATININE 0.94 06/16/2023 -Changes: none - Diabetic eye exam:pending - Diabetic foot exam:pending - Continue lifestyle modifications - Continue current medications - Follow up: with endocrinology as scheduled Assessment & Plan (10/05/2023 11:16 AM EDT): Not control but better he is being manage by endocrinology, he has insulin pump and he is on max dose ozempic Assessment & Plan (09/17/2023 12:29 PM EDT): Ozempic dose recently increase by endocrinology C/w insulin pump manage by endocrinology Assessment & Plan (06/16/2023 4:28 PM EDT): Diabetes is: not controlled - Lab Results Component Value Date HGBA1C 12.1 (A) 06/16/2023 HGBA1C 10.0 (A) 03/27/2023 HGBA1C 10.4 (A) 12/03/2022 - Lab Results Component Value Date MICROALBUR 38.0 10/01/2022 CREATININE 0.94 06/16/2023 -continue to follow with endocrinology to manage his insulin pump I agree to discontinue trulicity I will add ozempic today I believe patient will benefit form this medication - Diabetic eye exam:pending - Diabetic foot exam:pending - Continue lifestyle modifications - Continue current medications - Follow up: with endocrinology as scheduled Bacteremia 01/19/2018 Chronic systolic (congestive) heart failure 01/07 Assessment & Plan (09/17/2023 12:29 PM EDT): Continue to follow by cardiology Assessment & Plan (06/16/2023 4:22 PM EDT): I start him again on Entresto 49-51mg I started him again on torsemide I instructed to start with 40mg BID and depending on how much weight and how is his breathing and edema can go up to 60mg BID (as before) Assessment & Plan (10/01/2022 12:44 PM EDT): Continue to follow with cardiology C/w entresto, torsemide, atorvastatin, zetia Difficulty in walking, not elsewhere classified 01/19/2018 Encounter for other specified surgical aftercare 01/19/2018 Hyperlipidemia, unspecified 01/19/2018 long term care pharmacist (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 of insulin ([facility]) Osteomyelitis, unspecified 01/19/2018 Encounters Date Type Department Care Team Description 12/06/2024 Orders Only GENERIC EXTERNAL DATA DEPARTMENT Provider, Generic External Data 12/05/[address] [address] Linh Cook MD Appointment Request 12/02/[address] [address] Linh Cook MD Nurse Triage 11/28/2024 9:30 AM EDT Telemedicine [facility] [address] [place] [address] Medina Bo RN Peripheral vascular disease ([facility]) [I73.9] 11/28/2024 Travel 11/21/[address] [address] Linh Cook MD Durable Medical Equipment 10/28/[address] [address] Linh Cook MD Call back request 10/26/[address] [address] Linh Cook MD Verbal Order 10/26/2024 Orders Only GENERIC EXTERNAL DATA DEPARTMENT Provider, Generic External Data 10/25/[address] [address] Linh Cook MD Verbal Order 10/24/[address] [address] Linh Cook MD FYI 10/21/[address] [address] Linh Cook MD Medication Question 10/19/[address] [address] Linh Cook MD Durable Medical Equipment ([facility]: Heavy Duty Transfer Shower Chair) 10/19/[address] [address] Linh Cook MD verbal orders needed 10/17/[address] [address] Linh Cook MD Glucose Monitor 10/14/2024 1:30 PM EDT Office Visit [address] [address] Angela Aceves CNP Decreased renal function (Primary Dx); Chronic pain of both knees; Hospital discharge follow-up 10/14/2024 Travel 10/13/[address] [address] Jimena Fan MA CHARTPREP 10/11/[address] [address] Elisha Bethea, PharmD 10/04/[address] [address] Linh Cook MD HDF apppointment 10/03/[address] [phone] Linh Cook MD Diabetic polyneuropathy associated with type 2 diabetes mellitus ([facility]) 10/03/2024 Telephone [facility] [address] [place] [address] Linh Cook MD APPT CHANGE 09/30/2024 Telephone [facility] [address] [place] [address] Linh Cook MD cologuard outreach 09/13/2024 Telephone [facility] [address] [place] [phone] Elisha Bethea PharmD 09/13/2024 Patient Outreach [facility] [address] [place] [phone] Linh Cook MD Transition Of Care (Tcm) (HDF scheduled ) 09/05/2024 Patient Outreach [facility] [address] [place] [address] Linh Cook MD Pre-visit Planning ((Unable to reach for PVP screening and or LVM) to be completed in office) from Last 3 Months Immunizations Immunization Administration Dates Next Due Hep B, adult 11/04/2021,08/07/2021,07/03/2021 INFLUENZA INJECTABLE QUADRIV ALANT CCIIV4 MDCK Multi-dose vial 12/17/2021 Influenza Injectable Quadriv alant Preservative Free IIV4 MDCK 01/03/2018 Influenza Quadrivalent Adjuvanted 12/02/2022 Influenza injectable quadriv alent IIV4 with preservative 11/04/2019 Influenza injectable quadriv alent preservative free 12/06/2016 Influenza, IIV3, injectable 12/30/2017, 7 Influenza, injectable, quadr ivalent, preservative free, pediatric 11/04/2019 Moderna Covid-19 Vaccine 12+ 02/07/2021,05/04/19 21,04/01/2020 Pneumococcal Conjugate PCV 13 12/30/2017 Pneumococcal Conjugate PCV 20 03/27/2023 Pneumococcal Polysaccharide PPSV23 09/29/2013 RSV Adjuvant 03/31/2023 Tdap 02/07/2021 Social History Tobacco Use Types Packs/Day Years Used Date Smoking Tobacco: Never Passive Smoke Exposure: Never Smokeless Tobacco: Never Tobacco Cessation:Counseling Given: Not Answered Alcohol Use Standard Drinks/Week Comments Never 0 [...] Orientation Straight 01/06/2022 10 :35 AM EDT Last Filed Vital Signs Vital Sign Reading Time Taken Comments Blood Pressure 120/70 10/14/2024 1:39 PM EDT Pulse 82 10/14/2024 1:39 PM EDT Temperature 37 C (98.6 F) 10/14/2024 1:39 PM EDT Respiratory Rate 14 10/14/2024 1:39 PM EDT Oxygen Saturation 97% 10/14/2024 1:3 9 PM EDT Inhaled Oxygen Concentration - - Weight 144 kg (317 lb) 10/14/2024 1:39 PM EDT wheel chair 63lb Height 180.3 cm (5' 11 ) 01/04/2024 1:2 4 PM EDT Body Mass Index 44.21 01/04/2024 1:24 PM EDT Plan of Treatment Upcoming Encounters Date Type Department Care Team (Late st Contact Info) Description 02/15/2025 10:45 AM EST Office Visit [facility] [address] [place] [address] Linh Cook MD [address] [place] [address] Health Maintenance Due Date Last Done Comments CT Colonography 1958 FIT DNA/Cologuard 1958 FIT 1958 FOBT 1960 Sigmoidoscopy 1958 Diabetes: Foot Exam 01/18/1968 Eye Exam 01/18/1968 Hepatitis A Vaccines (1 of 2 - Risk 2-dose series) 1977 Colonoscopy 01/07/2023 Colorectal Cancer Screening 01/07/2023 Zoster Vaccines (2 of 2) 01/11/2024 11/16/2023 SDOH Screening 09/03/2024 09/04/2023 Diabetes: Urine Protein Screening 10/04/2024 10/05/2023, 10/01/2022, 06/30/2022, Additional history exists Lipid Panel 10/04/2024 10/05/2023, 06/08, 01/07/2021 COVID-19 Vaccine ( season) 2024 11/26/2023, 12/17/2021, 07/03/2021, Additional history exists Influenza Vaccine (#1) 2024 , 11/16/2023, 12/02/2022, Additional history exists Diabetes: Hemoglobin A1C 12/14/2024 025, 01/04/2024, 09/15/2023, Additional history exists Depression Monitoring 04/16/2025 10/14/2024, 025 Alcohol/Substance Use Screening 10/14/2025 10/14/2024 Tobacco Screening 10/14/2025 10/14/2024 DTaP/Tdap/Td Vaccines (2 - Td or Tdap) 02/07/2031 02/07/2021, 02/07/2021 Hepatitis B Vaccines Completed 11/04/2021, 08/07/2021, 07/03/2021 Pneumococcal Vaccine: 50+ Years Completed 03/27/2023, 12/30/2017, 09/29/2013 RSV Patients and Patients Aged 60 years or older Completed 03/31/2023 RSV under 20 months Aged Out 03/31/2023 No longe r eligible based on patient's age to complete this topic HIB Vaccines Aged Out No longer eligi ble based on patient's age to complete this topic HPV Vaccines Aged Out No longer eligi ble based on patient's age to complete this topic IPV Vaccines Aged Out No longer eligi ble based on patient's age to complete this topic Meningococcal B Vaccine Aged Out No l onger eligible based on patient's age to complete this topic Meningococcal Vaccine Aged Out No eron april eligible based on patient's age to complete this topic Rotavirus Vaccines Aged Out No longer eligible based on patient's age to complete this topic Procedures Procedure Name Priority Date/Time Associated Diagnosis Comments GLUCOSE, WHOLE BLOOD Routine 12/06/2024 2:26 PM EDT GLUCOSE, WHOLE BLOOD Routine 10/26/2024 1:23 PM EDT POCT GLYCATED HEMOGLOBIN, TOTAL Routine 01/04/2024 1:26 PM EDT Type 2 diabetes mellitus with diabetic neuropathy, with long-term current use of insulin ([facility]) ALBUMIN, RANDOM URINE W/CREATININE Routine 10/05/2023 10:55 AM EDT Type 2 diabetes mellitus with diabetic neuropathy, with long-term current use of insulin ([facility]) LIPID PANEL WITH REFLEX TO DIRECT LDL Routine 10/05/2023 10:55 AM EDT Type 2 diabetes mellitus with diabetic neuropathy, with long-term current use of insulin ([facility]) from Last 3 Months or Most Recently Relevant to Health Maintenance Results * (ABNORMAL) Glucose, Whole Blood (12/06/2024 2:26 PM EDT) Only the most recent of2 resultswithin the time period is included. Glucose, Whole Blood 305(H) 60 - 115 mg/dL [facility] Comment:METER #: [id number] Testing performed in the Endocrinology Department [address] , [address], [facility]. 12/06/2024 2:26 PM EDT 12/06/2024 2:31 PM EDT us Generic External Data Provider LAB BLOOD ORDERAB LES Final Result [facility] [address] [place] [phone] * (ABNORMAL) POCT HGB A1C (01/04/2024 1:26 PM EDT) Pathologist [facility] Hemoglobin A1C 8.0(A) 4.0 - 6.0 % QC Media Lot # [id number] Lot# Expiration Date [id number] Blood 01/04/2024 1:26 PM EDT us Linh Ramos MD POINT OF CARE TEST EN TER/EDIT ORDERABLES Final Result * (ABNORMAL) Lipid Panel with Reflex to Direct LDL (10/05/2023 10:55 AM EDT) Pathologist [facility] Triglycerides 100 <150 mg/dL [facility] Comment:Desirable Triglyceri de: less than 150 mg/dLBorderline High Triglyceride 150-199 mg/dLHigh Triglyceride: 200-499 mg/dLVery High Triglyceride: greater than or equal to 5OO mg/dL Cholesterol 161 <200 mg/dL [facility] Comment:Desirable Cholestero l: less than 200 mg/dLBorderline High Cholesterol: 200-239 mg/dLHigh Cholesterol: greater than 239 mg/dL LDL Cholesterol Calculated 100(H) <100 mg/dL [facility] Comment:Desirable LDL: less than 100 mg/dLNear Optimal/Above Optimal LDL: 110- 129 mg/dLBorderline High LDL: 130-159 mg/dLHigh LDL: 160-189 mg/dLVery High LDL: greater than or equal to 190 mg/dL HDL Cholesterol 41 >40 mg/dL [facility] Comment:Desirable HDL: great er than 40 mg/dL Note: This HDL assay may give artificially low results in patients with liver disease. Blood 10/05/2023 10:5 5 AM EDT 10/05/2023 1:19 PM EDT us Linh Ramos MD LAB BLOOD ORDERABLES Final Result Performing Organization Address [facility] de Phone Number [facility] [address] [place] [phone] * (ABNORMAL) Albumin, Random Urine W/Creatinine (10/05/2023 10:55 AM EDT) Creatinine, Urine 54.04 mg/dL [facility] Microalbumin Urine 48.0 mg/L [facility] Microalbum Creatinine Ratio Ur 88.8(H) <30 ug/mg cr [facility] Comment:Albumin/Creatinine R atio Reference Ranges: Normal: < 30 ug/mg creatinine Microalbuminuria: 30 - 300 ug/mg creatinineClinical Albuminuria: > 300 ug/mg creatinine Urine (Urine, Random) 10/05/2023 10:55 AM EDT 10/05/2023 1:16 PM EDT us Linh Ramos MD LAB URINE ORDERABLES Final Result Performing Organization Address [facility] Co de Phone Number [facility] [address] [place] [address] [phone] from Last 3 Months or Most Recently Relevant to Health Maintenance Insurance [facility] [employer] OPT[employer] (HMO D-SNP) [place] [id number] Care Teams Mainframe Systems Programmer Relationship Specialty Start Date End Date Linh Cook MD [address] [place] [phone] PCP - General Family Medicine 06/22/18 [facility] 06/10/23
--- OUTSIDE RECORDS SUMMARY | 2024-12-06 15:12 | XMS_ITS | Encounter Summary ---
Author Organization [employer] Address 75 [facility] 7t [place] [address] Care Team Providers Care Part Time Receptionist Name Role Phone Linh Cook MD Primary Care Provide r Reason for Visit * Reason Comments Med Refill Encounter Details Date Type Department Care Team (Late st Contact Info) Description 03/04/2023 Refill [facility] MEDICINE [address] [place], [place] [phone] Risa Leiva MD [address] [place], [place] [phone] Diabetic polyneuropathy associated with type 2 diabetes [...] Description 02/15/2025 10:45 AM EST Office Visit [facility] MEDICINE [address] [place] [address] Linh Coko MD [address] [place] [address] documented as of this encounter Visit Diagnoses Diagnosis Diabetic polyneuropathy associated with type 2 diabetes mellitus (HCC) documented in this encounter Additional Health Concerns Assessment Noted Time PHQ-9 Depression Total Score: 8 06/26/19 23 3:29 PM EDT documented as of this encounter Care Teams Part Time Receptionist Relationship Specialty Start Date End Date Linh Cook MD [address] [place] [address] PCP - General Family Medicine 06/22/18 [facility] 06/10/23 documented as of this encounter
--- OUTSIDE RECORDS SUMMARY | 2024-12-06 15:12 | XMS_ITS | Encounter Summary ---
Author Organization [employer] Address [address] [place] [address] Care Team Providers Care Investment Officer Name Role Phone Linh Cook MD Primary Care Provide r Encounter Details Date Type Department Care Team (Late st Contact Info) Description 07/27/2024 Lab Requisition [facility] - Main Lab 299 [place] [address] Reji Sterling MD [address] [place] [address] 204 [place], [phone] Gout, unspecified Social History Tobacco Use [...] Date/Time Associated Diagnosis Comments URIC ACID Routine 07/27/2024 5:23 AM EDT Gout, unspecified documented in this encounter Results * Uric acid (07/27/2024 5:23 AM EDT) Uric Acid 5.2 3.7 - 9.2 mg/dL LAB CHEMISTRY METHOD 07/27/2024 10:30 AM EDT [facility] Blood Venous blood specimen / Unknown Venipuncture / Unknown 07/27/2024 5:23 AM EDT 07/27/2024 9:29 AM EDT us Reji Sterling MD LAB BLOOD ORDERABLES Final Resul t [facility] [address] [place] [address], documented in this encounter Visit Diagnoses Diagnosis Gout, unspecified documented in this encounter Additional Health Concerns Infection Onset Date Last Indicated Resolved Time ESBL 07/27/2024 10/26/2024 documented as of this encounter Care Teams Investment Officer Relationship Specialty Start Date End Date Linh Cook MD [address] [place] [phone] PCP - General Internal Medicine 11/05/20 documented as of this encounter
--- OUTSIDE RECORDS SUMMARY | 2024-12-06 15:12 | XMS_ITS | Encounter Summary ---
Author Organization [employer] Address 75 [facility] 7t [place] [address] Care Team Providers Care Tester Food Products Name Role Phone Linh Cook MD Primary Care Provide r Reason for Visit * Reason Comments Med Refill Encounter Details Date Type Department Care Team ([facility] st Contact Info) Description 01/20/2024 Refill [facility] MEDICINE [address] [place], [place] [phone] Linh Cook MD [address] [place] [address] Social History Tobacco Use Types Packs/Day Years [...] Description 02/15/2025 10:45 AM EST Office Visit [facility] MEDICINE [address] [place] [phone] Linh Cook MD [address] [place] [address] documented as of this encounter Visit Diagnoses Not on filedocumented in this encounter Additional Health Concerns Assessment Noted Time PHQ-9 Depression Total Score: 13 024 2:02 PM EDT documented as of this encounter Care Teams Tester Food Products Relationship Specialty Start Date End Date Linh Cook MD [address] [place] [phone] PCP - General Family Medicine 06/22/18 [facility] 06/10/23 documented as of this encounter
--- OUTSIDE RECORDS SUMMARY | 2024-12-06 15:12 | XMS_ITS | Encounter Summary ---
Author Organization [employer] Address [address] [place] [address] Care Team Providers Care Supervisor Sandblaster Name Role Phone Linh Cook MD Primary Care Provide r Encounter Details Date Type Department Care Team (Late st Contact Info) Description 07/08/2024 Lab Requisition [facility] - Main Lab 299 [facility] [place] [address] Reji Sterling MD [address] [place] [address] 204 [place], [phone] Heart failure, unspecified (CMS/HCC V24, CMS/HCC V28) Social History Tobacco [...] Assessment Author No 05/09/2024 5:28 PM EST Farideh, Carolyn, RN * Do you have serious difficulty [...] Associated Diagnosis Comments COMPLETE BLOOD COUNT Routine 07/08/2024 5:15 AM EDT Heart failure, unspecified ([facility] V24, [facility] V28) documented in this encounter Results * (ABNORMAL) Complete blood count (07/08/2024 5:15 AM EDT) [facility] WBC 7.9 4.8 - 10.8 K/mcL LAB HEMETOLOGY METHOD 07/08/2024 10:49 AM [facility] RBC 4.20(L) 4.50 - 5.50 M/mcL LAB HEMETOLOGY METHOD 07/08/2024 10:49 AM [facility] Hemoglobin 12.0(L) 13.5 - 17.5 g/dL LAB HEMETOLOGY METHOD 07/08/2024 10:49 AM [facility] Hematocrit 39.7(L) 42.0 - 54.0 % LAB HEMETOLOGY METHOD 07/08/2024 10:49 AM [facility] MCV 95.0 79.0 - 98.0 FL LAB HEMETOLOGY METHOD 07/08/2024 10:49 AM [facility] MCH 28.7 27.0 - 32.0 pcg LAB HEMETOLOGY METHOD 07/08/2024 10:49 AM EDT [facility] MCHC 30.2(L) 32.0 - 37.0 g/dL LAB HEMETOLOGY METHOD 07/08/2024 10:49 AM EDT [facility] RDW 14.4 11.0 - 15.0 % LAB HEMETOLOGY METHOD 07/08/2024 10:49 AM EDT [facility] Platelets 452(H) 130 - 400 K/mcL LAB HEMETOLOGY METHOD 07/08/2024 10:49 AM EDT [facility] MPV 9.2 7.0 - 11.0 FL LAB HEMETOLOGY METHOD 07/08/2024 10:49 AM EDT [facility] NRBC 0.0 <1.0 % LAB HEMETOLOGY METHOD 07/08/2024 10:49 AM EDT [facility] NRBC Absolute 0.00 <0.10 K/mcL LAB HEMETOLOGY METHOD 07/08/2024 10:49 AM EDT [facility] Blood Venous blood specimen / Unknown Venipuncture / Unknown 07/08/2024 5:15 AM EDT 07/08/2024 10:13 AM EDT us Reji Sterling MD LAB BLOOD ORDERABLES Final Resul t [facility] [address] [place] [address], documented in this encounter Visit Diagnoses Diagnosis Heart failure, unspecified (CMS/HCC V24, CMS/HCC V28) Heart failure, unspecified documented in this encounter Additional Health Concerns Infection Onset Date Last Indicated Resolved Time ESBL 07/27/2024 10/26/2024 documented as of this encounter Care Teams Supervisor Sandblaster Relationship Specialty Start Date End Date Linh Cook MD [address] [place] [phone] PCP - General Internal Medicine 11/05/20 documented as of this encounter
--- OUTSIDE RECORDS SUMMARY | 2024-12-06 15:12 | XMS_ITS | Encounter Summary ---
Author Organization [employer] Address 75 [facility] 7t [place] [address] Care Team Providers Care Clinical Cytogeneticist Name Role Phone Linh Cook MD Primary Care Provide r Reason for Visit * Reason Comments Med Refill Encounter Details Date Type Department Care Team ([facility] st Contact Info) Description 01/26/2023 Refill [facility] MEDICINE [address] [place], [place] [phone] Linh Cook MD 230 [place] [address] Diabetic polyneuropathy associated with type 2 diabetes [...] 02/15/2025 10:45 AM EST Office Visit [facility] MEDICINE [address] [place] [address] Linh Cook MD [address] [place] [address] documented as of this encounter Visit Diagnoses Diagnosis Diabetic polyneuropathy associated with type 2 diabetes mellitus (HCC) documented in this encounter Additional Health Concerns Assessment Noted Time PHQ-9 Depression Total Score: 8 06/26/19 23 3:29 PM EDT documented as of this encounter Care Teams Clinical Cytogeneticist Relationship Specialty Start Date End Date Linh Cook MD [address] [place] [phone] PCP - General Family Medicine 06/22/18 [facility] 06/10/23 documented as of this encounter
--- OUTSIDE RECORDS SUMMARY | 2024-12-06 15:12 | XMS_ITS | Encounter Summary ---
Author Organization [employer] Address [address] [place] [address] Care Team Providers Care Deputy Sheriff Chief Name Role Phone Linh Cook MD Primary Care Provide r Encounter Details Date Type Department Care Team (Late st Contact Info) Description 07/27/2024 Lab Requisition [facility] - Main Lab 299 [facility] [place] [address] Reji Sterling MD [address] [place] [address] 204 [place], [phone] Urinary tract infection, site not specified Social History Tobacco Use Types Packs/Day Years [...] Procedure Name Priority Date/Time Associated Diagnosis Comments URINALYSIS WITH REFLEX MICROSCOPIC Routine 07/27/2024 4:50 AM EDT Urinary tract infection, site not specified URINALYSIS WITH REFLEX MICROSCOPIC Routine 07/27/2024 4:50 AM EDT Urinary tract infection, site not specified CULTURE URINE Routine 07/27/2024 4:50 AM EDT Urinary tract infection, site not specified documented in this encounter Results * (ABNORMAL) Urinalysis with reflex microscopic (07/27/2024 4:50 AM EDT) Specific [place] Urine 1.026 1.003 - 1.030 LAB URINALYSIS - AUTOMATED METHOD 07/27/2024 9:31 AM [facility] pH, Urine 7.0 5.0 - 8.0 pH LAB URINALYSIS - AUTOMATED METHOD 07/27/2024 9:31 AM [facility] Leukocytes, Urine Small(A) Negative LAB URINALYSIS - AUTOMATED METHOD 07/27/2024 9:31 AM [facility] Nitrite, Urine Negative Negative LAB URINALYSIS - AUTOMATED METHOD 07/27/2024 9:31 AM [facility] Protein, Urine Negative <=Trace mg/dL LAB URINALYSIS - AUTOMATED METHOD 07/27/2024 9:31 AM [facility] Glucose, Urine >=1000(A) Negative mg/dL LAB URINALYSIS - AUTOMATED METHOD 07/27/2024 9:31 AM [facility] Ketones, Urine Negative Negative mg/dL LAB URINALYSIS - AUTOMATED METHOD 07/27/2024 9:31 AM [facility] Urobilinogen , Urine 1.0 0.2 - 1.0 mg/dL LAB URINALYSIS - AUTOMATED METHOD 07/27/2024 9:31 AM [facility] Bilirubin, Urine Negative Negative LAB URINALYSIS - AUTOMATED METHOD 07/27/2024 9:31 AM [facility] Blood, Urine Negative Negative LAB URINALYSIS - AUTOMATED METHOD 07/27/2024 9:31 AM [facility] RBC, Urine 4.9(H) 0 - 4 /HPF LAB URINALYSIS - AUTOMATED METHOD 07/27/2024 9:31 AM [facility] WBC, Urine 53.0(H) 0 - 4 /HPF LAB URINALYSIS - AUTOMATED METHOD 07/27/2024 9:31 AM [facility] Squamous Epithelial, Urine 12 0 - 60 /LPF LAB URINALYSIS - AUTOMATED METHOD 07/27/2024 9:31 AM [facility] Bacteria, Urine Many(A) Negative /HPF LAB URINALYSIS - AUTOMATED METHOD 07/27/2024 9:31 AM [facility] Hyaline Casts, Urine 0.4 0 - 3 /LPF LAB URINALYSIS - AUTOMATED METHOD 07/27/2024 9:31 AM [facility] Urine Urine specimen obtained by clean catch procedure / Unknown 07/27/2024 4:50 AM EDT 07/27/2024 9:19 AM EDT us Reji Sterling MD LAB URINE ORDERABLES Final Resul t Performing Organization Address [facility]/ZIP Co de Phone Number [facility] [address] [place] [address], [place] [phone] * (ABNORMAL) Culture urine (07/27/2024 4:50 AM EDT) Culture, Urine >100,000 CFU/mL Escherichia coli ESBL(A) TONYA 07/30/2024 8:35 AM EDT [facility] Comment: THIS ORGANISM IS POSITIVE FOR EXTENDED SPECTRUM BETA-LACTAMASE (ESBL). EXTENDED SPECTRUM BETA-LACTAMASE PRODUCING ORGANISMS DEMONSTRATE DECREASED ACTIVITY WITH PENICILLILNS, CEPHALOSPORINS AND AZTREONAM. Edited result: Previously reported as Escherichia coli on 07/29/2024 at 1024 EDT. Urine Urine specimen obtained by clean catch procedure / Unknown 07/27/2024 4:50 AM EDT 07/27/2024 9:19 AM EDT Narrative Organism Antibiotic Method Susceptibility Escherichia coli ESBL Amoxicillin/Clavulanate TONYA >=32 ug/ml: Resistant Escherichia coli ESBL Ampicillin/Sulbactam TONYA 16 ug/ml: Intermediate Escherichia coli ESBL Piperacillin/Tazobactam TONYA 8 ug/ml: Susceptible Escherichia coli ESBL Cefazolin (Urine) TONYA >=32 ug/ml: Resistant Escherichia coli ESBL Cefoxitin TONYA 16 ug/ml: Intermediate Escherichia coli ESBL Ceftazidime TONYA <=0.5 ug/ml: Susceptible Escherichia coli ESBL Ceftriaxone TONYA 0.5 ug/ml: Susceptible Escherichia coli ESBL Cefepime TONYA <=0.12 ug/ml: Susceptible Escherichia coli ESBL Meropenem TONYA <=0.25 ug/ml: Susceptible Escherichia coli ESBL Amikacin TONYA 2 ug/ml: Susceptible Escherichia coli ESBL Gentamicin TONYA <=1 ug/ml: Susceptible Escherichia coli ESBL Ciprofloxacin TONYA <=0.06 ug/ml: Susceptible Escherichia coli ESBL Levofloxacin TONYA <=0.12 ug/ml: Susceptible Escherichia coli ESBL Nitrofurantoin TONYA <=16 ug/ml: Susceptible Escherichia coli ESBL Trimethoprim/Sulfa methoxazol e TONYA <=20 ug/ml: Susceptible Reji Sterling MD LAB MICROBIOLOGY - GENERAL ORDER TASIA Final Result [facility] [address] [place] [address], documented in this encounter Visit Diagnoses Diagnosis Urinary tract infection, site not specified documented in this encounter Additional Health Concerns Infection Onset Date Last Indicated Resolved Time ESBL 07/27/2024 10/26/2024 documented as of this encounter Care Teams Deputy Sheriff Chief Relationship Specialty Start Date End Date Linh Cook MD [address] [place] [phone] PCP - General Internal Medicine 11/05/20 documented as of this encounter
--- OUTSIDE RECORDS SUMMARY | 2024-12-06 15:12 | XMS_ITS | Encounter Summary ---
Author Organization [employer] Address 75 [facility] 7t [place] [address] Care Team Providers Care Feather Duster Winder Name Role Phone Linh Cook MD Primary Care Provide r Reason for Visit * Reason Onset Date Comments Durable Medical Equipment 11/21/2024 Encounter Details Date Type Department Care Team ([facility] st Contact Info) Description 11/21/2024 Telephone [facility] MEDICINE [address] [place], [place] [phone] Linh Cook MD [address] [place] [address] Durable Medical Equipment Social History Tobacco Use Types Packs/Day Years [...] encounter Miscellaneous Notes * Telephone Encounter - Jackelin Robbins - 11/21/2024 12:26 PM EDT Tc from pt requesting a new scrip for DME - walker with wheels and seat, size XL - Pressure Rain Shower Head with Handheld - Bed pad reusable (if is by pieces, pt request 3up, due to pt change them every day) - Wipes To be send to [employer] documented in this encounter Plan of Treatment Upcoming Encounters Date Type Department Care Team (Late st Contact Info) Description 02/15/2025 10:45 AM EST Office Visit [facility] MEDICINE [address] [place] [address] Linh Cook MD [address] [place] [address] documented as of this encounter Visit Diagnoses Not on filedocumented in this encounter Additional Health Concerns Assessment Noted Time PHQ-9 Depression Total Score: 13 025 1:43 PM EDT documented as of this encounter Care Teams Feather Duster Winder Relationship Specialty Start Date End Date Linh Cook MD [address] [place] [address] PCP - General Family Medicine 06/22/18 [facility] 06/10/23 documented as of this encounter
--- OUTSIDE RECORDS SUMMARY | 2024-12-06 15:12 | XMS_ITS | Encounter Summary ---
Author Organization [employer] Address [address] [place] [address] Care Team Providers Care Office Auditor Name Role Phone Linh Cook MD Primary Care Provide r Encounter Details Date Type Department Care Team (Late st Contact Info) Description 07/09/[address] [facility] - Main Lab 299 [facility] [place] [address] Reji Sterling MD [address] [place] [address] [address] [place], [phone] Acute kidney failure, unspecified (CMS/HCC V24); [...] Associated Diagnosis Comments COMPLETE BLOOD COUNT Routine 07/11/2024 6:13 AM EDT Acute kidney failure, unspecified ([facility] V24) Cellulitis of left upper limb BASIC METABOLIC PANEL Routine 07/11/2024 6:13 AM EDT Acute kidney failure, unspecified ([facility] V24) Cellulitis of left upper limb documented in this encounter Results * (ABNORMAL) Basic metabolic panel (07/11/2024 6:13 AM EDT) Sodium 137 133 - 145 mmol/L LAB CHEMISTRY METHOD 07/11/2024 8:[address] [facility] Potassium 5.0 3.5 - 5.5 mmol/L LAB CHEMISTRY METHOD 07/11/2024 8:[address] [facility] Chloride 103 96 - 110 mmol/L LAB CHEMISTRY METHOD 07/11/2024 8:[address] [facility] CO2 28 21 - 32 mmol/L LAB CHEMISTRY METHOD 07/11/2024 8:[address] [facility] Anion Gap 6 3 - 11 LAB CHEMISTRY METHOD 07/11/2024 8:[address] [facility] Glucose 183(H) 70 - 100 mg/dL LAB CHEMISTRY METHOD 07/11/2024 8:28 AM EDT [facility] BUN 26(H) 5 - 25 mg/dL LAB CHEMISTRY METHOD 07/11/2024 8:28 AM EDT [facility] Creatinine 1.07 0.70 - 1.30 mg/dL LAB CHEMISTRY METHOD 07/11/2024 8:28 AM EDT [facility] eGFR 77 >=60 mL/min/1. 73m2 LAB CHEMISTRY METHOD 07/11/2024 8:28 AM EDT [facility] Comment:Calculation based on the Chronic Kidney Disease Epidemiology Collaboration (CKD-EPI) equation refit without adjustment for race. BUN/Creatinine Ratio 24.3 LAB CHEMISTRY METHOD 07/11/2024 8:28 AM T [facility] Calcium 8.6 8.5 - 10.5 mg/dL LAB CHEMISTRY METHOD 07/11/2024 8:28 AM T [facility] Blood Venous blood specimen / Unknown Venipuncture / Unknown 07/11/2024 6:13 AM EDT 07/11/2024 7:36 AM EDT us Reji Sterling MD LAB BLOOD ORDERABLES Final Resul t [facility] [address] [place] [address], * (ABNORMAL) Complete blood count (07/11/2024 6:13 AM EDT) WBC 5.4 4.8 - 10.8 K/mcL LAB HEMETOLOGY METHOD 07/11/2024 8:00 AM EDT [facility] RBC 4.30(L) 4.50 - 5.50 M/mcL LAB HEMETOLOGY METHOD 07/11/2024 8:00 AM EDT [facility] Hemoglobin 12.2(L) 13.5 - 17.5 g/dL LAB HEMETOLOGY METHOD 07/11/2024 8:00 AM EDT [facility] Hematocrit 40.9(L) 42.0 - 54.0 % LAB HEMETOLOGY METHOD 07/11/2024 8:00 AM EDT [facility] MCV 94.7 79.0 - 98.0 FL LAB HEMETOLOGY METHOD 07/11/2024 8:00 AM EDT [facility] MCH 28.2 27.0 - 32.0 pcg LAB HEMETOLOGY METHOD 07/11/2024 8:00 AM EDT [facility] MCHC 29.8(L) 32.0 - 37.0 g/dL LAB HEMETOLOGY METHOD 07/11/2024 8:[address] [facility] RDW 14.3 11.0 - 15.0 % LAB HEMETOLOGY METHOD 07/11/2024 8:00 AM EDT [facility] Platelets 430(H) 130 - 400 K/mcL LAB HEMETOLOGY METHOD 07/11/2024 8:00 AM EDT [facility] MPV 9.0 7.0 - 11.0 FL LAB HEMETOLOGY METHOD 07/11/2024 8:[address] [facility] NRBC 0.0 <1.0 % LAB HEMETOLOGY METHOD 07/11/2024 8:00 AM EDT [facility] NRBC Absolute 0.00 <0.10 K/mcL LAB HEMETOLOGY METHOD 07/11/2024 8:[address] [facility] Blood Venous blood specimen / Unknown Venipuncture / Unknown 07/11/2024 6:13 AM EDT 07/11/2024 7:36 AM EDT us Reji Sterlnig MD LAB BLOOD ORDERABLES Final Resul t [facility] [address] [place] [address], [place] [phone] documented in this encounter Visit Diagnoses Diagnosis Acute kidney failure, unspecified ([facility] V24) Acute kidney failure, unspecified Cellulitis of left upper limb documented in this encounter Additional Health Concerns Infection Onset Date Last Indicated Resolved Time ESBL 07/27/2024 10/26/2024 documented as of this encounter Care Teams Office Auditor Relationship Specialty Start Date End Date Linh Cook MD [address] [place] [phone] PCP - General Internal Medicine 11/05/20 documented as of this encounter
--- OUTSIDE RECORDS SUMMARY | 2024-12-06 15:12 | XMS_ITS | Clinical Summary ---
Author Organization [facility] Address [address] [place] [address] Phone Care Team Providers Care Mri Tech Name Role Phone Linh Cook MD Primary Care Provide r Allergies Active Allergy Reactions Criticality Noted Date Comments Lisinopril Cough,Nausea Only Medium 01/20/2018 Mild cough cough Medications cephalexin (KEFLEX) 500 mg capsule Take 1 capsule (500 mg total) by mouth 4 (four) times a day for 10 days. 40 each 10/27/2024 11/07/19 25 sulfamethoxazol e-trimethoprim (BACTRIM DS,SEPTRA DS) 800-160 mg per tablet Take 1 tablet by mouth 2 (two) times a day for 10 days. 20 each 10/27/2024 11/07/19 25 sulfamethoxazol e-trimethoprim (Bactrim DS) 800-160 mg per tablet Take 1 tablet by mouth 2 (two) times a day for 5 days. 10 each 11/22/2024 11/28/19 25 cephalexin (KEFLEX) 500 mg capsule Take 1 capsule (500 mg total) by mouth 3 (three) times a day for 5 days. 15 each 11/22/2024 11/28/19 25 Active Problems Problem Noted Date Diagnosed Date Hypotension due to hypovolemia 04/01/2024 Assessment & Plan (04/01/2024 6:55 PM EST): We have been operating under the assumption that this patient has heart failure with cardiogenic shock however none of the objective data points in this direction. Unfortunately, physical exam in the morbidly obese is incredibly unreliable at determining volume status. The only thing the patient reports is an increase in weight which may not be water weight at all. It has come on very slowly and gradually. Would consider a trial of a 500 cc bolus of fluid to see if urine output picks up. Would hold diuretic therapy for now. I still think transfer to the PCU would be a good idea as this patient may actually require invasive monitoring with right heart cath to determine filling pressures and guide therapy. In the meantime, all cardiomyopathy meds have to be held due to hypotension. Cardiomyopathy, nonischemic (CMS/HCC V24, CMS/HC C V28) 04/01/2024 Assessment & Plan (04/01/2024 6:56 PM EST): Hold all cardiomyopathy meds due to hypotension. IV fluid bolus trial as above. It is possible that this was related to escalation of outpatient diuretic therapy. AICD (automatic cardioverter/defibrillator) pres ent 04/01/2024 Assessment & Plan (04/01/2024 7:04 PM EST): For completeness, can interrogate the device at [facility]. 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 Paroxysmal atrial flutter (CMS/HCC V24, CMS/HCC V28) 04/01/2024 Assessment & Plan (04/01/2024 7:05 PM EST): Would hold Xarelto for now in case the patient needs a right heart cath. Can be resumed at [facility] if it is determined that he does not need any procedures. Encounters Date Type Department Care Team Description 11/22/2024 2:33 AM EDT - 11/22/2024 4:14 AM EDT Emergency [facility] Emergency [address] [place] [address] Nehemias De La Cruz MD Wound cellulitis (Primary Dx) Discharge Disposition: Home or Self Care 10/26/2024 11:18 PM EDT - 10/27/2024 1:55 AM EDT [facility] Emergency [address] [place] [address] Cellulitis of fifth toe (Primary Dx) Discharge Disposition: Home or Self Care 09/13/2024 Lab Requisition [facility] - Main Lab [address] [facility] [place] [address] My Oconnor MD Type 2 diabetes mellitus without complications ([facility] V24, [facility] V28); Weakness; Heart failure, unspecified ([facility] V24, [facility] V28); Vitamin D deficiency, unspecified from Last 3 Months Surgical History Surgery Date Site/Laterality Comments OTHER SURGICAL HISTORY 01/13/2018 Left PROCEDURE: WA AMPUTATION TOE INTERPHALANGEAL JOINT; COMMENT: 5th toe proximal phlagectomy, debridement skin & subcutaneous tissue Medical History Medical History Date Comments History of partial amputatio n of toe ([facility] V24) 01/21/2018 DX:History of partial amputa tion of toe ([facility]); COMMENT: Left 5th toe- proximal phlangectomy DM (diabetes mellitus), type 2 with neurological complications ([facility] V24, [facility] V28) 01/21/2018 DX:DM (diabetes mellitus), t ype 2 with neurological complications ([facility]) Diabetic ulcer of toe ([facility] V24, [facility] V28) 01/21/2018 DX:Diabetic ulcer of toe ([facility]); COMMENT: Left 5th toe Hypertension 01/21/2018 DX:Hypertension CHF (congestive heart failur e) ([facility] V24, [facility] V28) 01/21/2018 DX:CHF (congestive heart fa ilure) ([facility]) History of substance abuse ( [facility] V24, [facility] V28) 01/21/2018 DX:History of substance abus e ([facility]) DM (diabetes mellitus) with peripheral vascular complication ([facility] V24, [facility] V28) 01/21/2018 DX:DM (diabetes mellitus) w ith peripheral vascular complication ([facility]) Osteomyelitis ([facility] V24, [facility] V28) 01/21/2018 DX:Osteomyelitis ([facility]); COMM ENT: Left 5th toe in setting of diabetic infection -Staph aureus & Group B Strep Diabetic neuropathy ([facility] V24, [facility] V28) 01/21/2018 DX:Diabetic neuropathy ([facility]) ; COMMENT: feet Family History Medical History Relation Name Comments Stroke Father Diabetes Mother Hypertension Relation Name Status Comments Father Mother Social History Tobacco [...] not to disclose 2024 3:16 PM EST Obstetrics History Last Filed Vital Signs Vital Sign Reading Time Taken Comments Blood Pressure 110/59 11/22/2024 2:43 AM EDT Pulse 91 11/22/2024 2:43 AM EDT Temperature 36.7 C (98.1 F) 11/22/2024 12:43 AM EDT Respiratory Rate 20 11/22/2024 2:43 AM EDT Oxygen Saturation 94% 11/22/2024 2:43 AM EDT Inhaled Oxygen Concentration - - Weight 141 kg (310 lb) 11/21/2024 7:42 PM EDT Height 180.3 cm (5' 11 ) 11/21/2024 7:42 PM EDT Body Mass Index 43.24 11/21/2024 7:42 PM EDT Plan of Treatment Health Maintenance Due Date Last Done Comments Colorectal Cancer Screening: Colonoscopy 1958 Diabetes: Annual Foot Exam 01/18/1968 Diabetes: Annual Retina Eye Exam 01/18/1968 Hepatitis A Vaccines (1 of 2 - Risk 2-dose series) 1977 Abdominal Aortic Aneurysm (AAA) Screen 02/09/2022 Hepatitis C Screening 02/09/2022 Medicare Annual Wellness Visit 02/09/2022 Social Influencers of Health Screening 02/09/2022 Diabetes: Annual Urine Albumin-Creatinine Ratio (uACR) 02/21/2022 Falls Risk Assessment 2023 Zoster Vaccines (2 of 2) 01/11/2024 11/16/2023 Depression Screening 03/09/2024 COVID-19 Vaccine ( season) 2024 11/26/2023, 12/17/2021, 07/03/2021, Additional history exists Influenza Vaccine (#1) 2024 , 12/02/2022, 12/17/2021, Additional history exists Diabetes: Blood Sugar Control Test (HGBA1C) 03/16/2025 09/13/2024, 01/04/2024, 12/11/2023, Additional history exists Diabetes: Annual GFR (Glomerular Filtration Rate) 11/21/2025 11/21/2024, 09/13/2024, 08/29/2024, Additional history exists Hypertension/CHF/CAD Annual BMP Blood Test 11/21/2025 11/21/2024, 09/13/2024, 08/29/2024, Additional history exists Cholesterol Screening (Lipid Panel) 09/13/2029 09/13/2024, 12/11/2023 DTaP,Tdap,and Td Vaccines (2 - Td or Tdap) 02/07/2031 02/07/2021 Hepatitis B Vaccines Completed 11/04/2021, 08/07/2021, 07/03/2021 Pneumococcal Vaccine: 50+ Years Completed 03/27/2023, 12/30/2017, 09/29/2013 RSV Immunization Adult Patients Completed 03/31/2023 HIB Vaccines Aged Out No longer eligi ble based on patient's age to complete this topic HPV Vaccines Aged Out No longer eligi ble based on patient's age to complete this topic IPV Vaccines Aged Out No longer eligi ble based on patient's age to complete this topic MMR Vaccines Aged Out No longer eligi ble based on patient's age to complete this topic Meningococcal ACWY Vaccine Aged Out N o longer eligible based on patient's age to complete this topic Meningococcal B Vaccine Aged Out No l onger eligible based on patient's age to complete this topic RSV Immunization Patients Under 20 months Aged Out No longer eligible based on patient's age to complete this topic Varicella Vaccines Aged Out No longer eligible based on patient's age to complete this topic Procedures Procedure Name Priority Date/Time Associated Diagnosis Comments XR CHEST 2 VIEWS STAT 11/22/2024 3:20 AM EDT LACTATE STAT 11/22/2024 2:16 AM EDT MAGNESIUM STAT 11/22/2024 2:16 AM EDT TROPONIN I HIGH SENSITIVITY STAT 11/22/2024 2:16 AM EDT B-TYPE NATRIURETIC PEPTIDE STAT 11/22/2024 2:16 AM EDT CBC WITH AUTO DIFFERENTIAL STAT 11/21/2024 7:49 PM EDT BASIC METABOLIC PANEL STAT 11/21/2024 7:49 PM EDT CBC AND DIFFERENTIAL STAT 11/21/2024 7:49 PM EDT XR TOES 2+ VIEWS LEFT STAT 10/27/2024 12:58 AM EDT CULTURE WOUND WITH GRAM STAIN STAT 10/26/2024 11:25 PM EDT LIPID PANEL WITH REFLEX TO DIRECT LDL [...] V24, CMS/HCC V28) Vitamin D deficiency, unspecified from Last 3 Months Results * XR Chest 2 Views (11/22/2024 3:20 AM EDT) Anatomical Region Laterality Modality Body Radiographic Lillian ging 11/22/2024 9:20 AM EDT Impressions 11/22/2024 9:21 AM EDT No acute findings. -------- FINAL REPORT -------- Dictated By: Fabian Wright Dictated Date: 11/22/2024 09:20 ET Assigned Physician: Fabian Wright Reviewed and Electronically Signed By: Fabian Wright Signed Date: 11/22/2024 09:21 ET Workstation ID: [id number] Transcribed By: Self Edit Transcribed Date: 11/22/2024 09:20 ET Narrative 11/22/2024 9:21 AM EDT PROCEDURE: PA and lateral radiographs of the chest. HISTORY: evaluate for pulmonary congestion. COMPARISON: 05/09/2024. FINDINGS: Left-sided pacemaker/automatic implantable cardiac defibrillator generator with biventricular and right atrial leads. Mildly hypoventilatory inspiratory effort. No pneumothorax, pleural effusion, or pulmonary edema. Bones are diffusely demineralized with mild degenerative changes of the spine. Procedure Note Fabian Wright MD - 11/22/2024 PROCEDURE: PA and lateral radiographs of the chest. HISTORY: evaluate for pulmonary congestion. COMPARISON: 05/09/2024. FINDINGS: Left-sided pacemaker/automatic implantable cardiac defibrillator generatorwith biventricular and right atrial leads. Mildly hypoventilatoryinspiratory effort. No pneumothorax, pleural effusion, or pulmonaryedema. Bones are diffusely demineralized with mild degenerative changesof the spine. IMPRESSION: No acute findings. -------- FINAL REPORT -------- Dictated By: Fabian Wright Dictated Date: 11/22/2024 09:20 ET Assigned Physician: Fabian Wright Reviewed and Electronically Signed By: Fabian Wright Signed Date: 11/22/2024 09:21 ET Workstation ID: [id number] Transcribed By: Self Edit Transcribed Date: 11/22/2024 09:20 ET us Nehemias De La Cruz MD IMG XR PROCEDURES Final Result * Troponin I High Sensitivity (11/22/2024 2:16 AM EDT) High Sensitivity Troponin I 40 <=79 ng/L LAB CHEMISTRY METHOD 11/22/2024 2:55 AM EDT [facility] Blood Venous blood specimen / Unknown Venipuncture / Unknown 11/22/2024 2:16 AM EDT 11/22/2024 2:24 AM EDT Narrative [facility] - 11/22/2024 2:55 AM EDT High levels of biotin in samples may falsely decrease hsTroponin values. Use caution when interpreting hsTroponin results in patients taking biotin who exhibit renal impairment (eGFR <60) or in patients taking more than 20 mg/day of biotin. Nehemias De La Cruz MD LAB BLOOD ORDERABLES Final Res ult [facility] [address] [place] [address], [place] [phone] * B-Type Natriuretic Peptide (BNP) (11/22/2024 2:16 AM EDT) Pathologist [facility] BNP 89 <=100 pcg/mL LAB CHEMISTRY METHOD 11/22/2024 3:03 AM EDT [facility] Blood Venous blood specimen / Unknown Venipuncture / Unknown 11/22/2024 2:16 AM EDT 11/22/2024 2:24 AM EDT Nehemias De La Cruz MD LAB BLOOD ORDERABLES Final Res ult Performing Organization Address City/[facility]/ZIP Co de Phone Number [facility] [address] [place] [address], [place] [phone] * Magnesium (11/22/2024 2:16 AM EDT) [facility] Magnesium 2.4 1.9 - 2.6 mg/dL LAB CHEMISTRY METHOD 11/22/2024 2:50 AM EDT [facility] Blood Venous blood specimen / Unknown Venipuncture / Unknown 11/22/2024 2:16 AM EDT 11/22/2024 2:24 AM EDT Nehemias De La Cruz MD LAB BLOOD ORDERABLES Final Res ult [facility] [address] [place] [address], [place] [phone] * Lactate (11/22/2024 2:16 AM EDT) Lactate 1.5 0.4 - 2.0 mmol/L LAB CHEMISTRY METHOD 11/22/2024 2:55 AM EDT [facility] Blood Venous blood specimen / Unknown Venipuncture / Unknown 11/22/2024 2:16 AM EDT 11/22/2024 2:24 AM EDT Nehemias De La Cruz MD LAB BLOOD ORDERABLES Final Res ult [facility] [address] [place] [address], * (ABNORMAL) CBC auto differential (11/21/2024 7:49 PM EDT) WBC 5.4 4.8 - 10.8 K/mcL LAB HEMETOLOGY METHOD 11/21/2024 8:05 PM EDT [facility] RBC 5.20 4.50 - 5.50 M/mcL LAB [facility]OLOGY [facility] Hemoglobin 14.4 13.5 - 17.5 g/dL LAB HEMETOLOGY METHOD 11/21/2024 8:05 PM EDT [facility] Hematocrit 46.0 42.0 - 54.0 % LAB HEMETOLOGY METHOD 11/21[facility]2024 8[facility] MCV 88.1 79.0 - 98.0 FL LAB HEMETOLOGY METHOD 11/21[facility]2024 8[facility] MCH 27.6 27.0 - 32.0 pcg LAB HEMETOLOGY METHOD 11/21/2024 8:05 PM [facility] MCHC 31.3(L) 32.0 - 37.0 g/dL LAB HEMETOLOGY METHOD 11/21/2024 8:05 PM [facility] RDW 14.7 11.0 - 15.0 % LAB HEMETOLOGY METHOD 11/21/2024 8:05 PM [facility] Platelets 209 130 - 400 K/mcL LAB HEMETOLOGY METHOD [facility]/21[facility]2024 [facility] MPV 9.6 7.0 - 11.0 FL LAB HEMETOLOGY METHOD 11/21/2024 8:05 PM [facility] NRBC 0.0 <1.0 % LAB HEMETOLOGY METHOD [facility]/21[facility]2024 [facility] NRBC Absolute 0.00 <0.10 K/mcL LAB HEMETOLOGY METHOD 11/21/2024 8:05 PM [facility] Neutrophils Relative 60.6 % LAB HEMETOLOGY METHOD 11/21/2024 8:05 PM [facility] Lymphocytes Relative 18.0 % LAB HEMETOLOGY METHOD 11/21/2024 8:05 PM [facility] Monocytes Relative 16.0 % LAB HEMETOLOGY METHOD 11/21/2024 8:05 PM [facility] Eosinophils Relative 3.9 % LAB HEMETOLOGY METHOD 11/21/2024 8:05 PM [facility] Basophils Relative 0.9 % LAB HEMETOLOGY METHOD 11/21/2024 8:05 PM [facility] Immature Granulocytes Relative 0.6 % LAB HEMETOLOGY METHOD 11/21/2024 8:05 PM [facility] Neutrophils Absolute 3.27 1.50 - 7.00 K/mcL LAB HEMETOLOGY METHOD 11/21/2024 8:05 PM [facility] Lymphocytes Absolute 0.97(L) 1.00 - 5.00 K/mcL LAB HEMETOLOGY METHOD 11/21/2024 8:05 PM [facility] Monocytes Absolute 0.86 0.20 - 1.00 K/mcL LAB HEMETOLOGY METHOD 11/21/2024 8:05 PM EDT [facility] Eosinophils Absolute 0.21 0.00 - 0.50 K/[facility] LAB HEMETOLOGY METHOD 11/21/2024 8:05 PM T [facility] Basophils Absolute 0.05 0.00 - 0.20 K/[facility] LAB HEMETOLOGY METHOD 11/21[facility]2024 [facility] Immature Granulocytes Absolute 0.03 0.00 - 0.03 K/[facility] LAB HEMETOLOGY METHOD 11/21/2024 8:05 PM [facility] Blood Venous blood specimen / Unknown Venipuncture / Unknown 11/21/2024 7:49 PM EDT 11/21/2024 7:58 PM EDT us Nehemias De La Cruz MD LAB BLOOD ORDERABLES Final Res ult [facility] [address] [place] [address], * (ABNORMAL) Basic metabolic panel (11/21/2024 7:49 PM EDT) Sodium 136 133 - 145 mmol/L LAB CHEMISTRY METHOD 11/21/2024 8:33 PM [facility] Potassium 4.1 3.5 - 5.5 mmol/L LAB CHEMISTRY METHOD 11/21/2024 8:33 PM [facility] Chloride 101 96 - 110 mmol/L LAB CHEMISTRY METHOD 11/21/2024 8:33 PM [facility] CO2 26 21 - 32 mmol/L LAB CHEMISTRY METHOD 11/21/2024 8:33 PM [facility] Anion Gap 9 3 - 11 LAB CHEMISTRY METHOD 11/21/2024 8:33 PM [facility] Glucose 203(H) 70 - 100 mg/dL LAB CHEMISTRY METHOD 11/21/2024 8:33 PM [facility] BUN 38(H) 5 - 25 mg/dL LAB CHEMISTRY METHOD 11/21/2024 8:33 PM EDT [facility] Creatinine 2.05(H) 0.70 - 1.30 mg/dL LAB CHEMISTRY METHOD 11/21/2024 8:33 PM EDT [facility] eGFR 35(L) >=60 mL/min/1. 73m2 LAB CHEMISTRY METHOD 11/21/2024 8:33 PM EDT [facility] Comment:Calculation based on the Chronic Kidney Disease Epidemiology Collaboration (CKD-EPI) equation refit without adjustment for race. BUN/Creatinine Ratio 18.5 LAB CHEMISTRY METHOD 11/21/2024 8:33 PM EDT [facility] Calcium 8.7 8.5 - 10.5 mg/dL LAB CHEMISTRY METHOD 11/21/2024 8:33 PM EDT [facility] Blood Venous blood specimen / Unknown Venipuncture / Unknown 11/21/2024 7:49 PM EDT 11/21/2024 7:58 PM EDT us Nehemias De La Cruz MD LAB BLOOD ORDERABLES Final Res ult [facility] [address] [place] [address], * XR Toes 2+ Views Left (10/27/2024 12:58 AM EDT) Anatomical Region Laterality Modality Lower Extremities, Toes Left [facility] 10/27/2024 8:32 AM EDT Impressions 10/27/2024 8:36 AM EDT No fracture, dislocation, radiographic evidence of osteomyelitis. The patient is seen to have undergone remote resection of the fifth proximal middle phalanges as also demonstrated on 06/17/2018. Please note that osteomyelitis cannot be excluded on the basis of radiography and, if there is clinical concern for osteomyelitis, further evaluation with radionuclide bone scan or with MRI should be considered. -------- FINAL REPORT -------- Dictated By: Inder Schwartz Dictated Date: 10/27/2024 08:32 ET Assigned Physician: Inder Schwartz Reviewed and Electronically Signed By: Inder Schwartz Signed Date: 10/27/2024 08:36 ET Workstation ID: [id number] Transcribed By: Self Edit Transcribed Date: 10/27/2024 08:32 ET Narrative 10/27/2024 8:36 AM EDT HISTORY: The patient is a 64-year-old diabetic male with an open wound of the left fifth toe. FINDINGS: AP and lateral radiographs of the left foot, along with a coned-down oblique view of the left fifth toe, are obtained. The patient is again seen to have undergone resection of the fifth proximal and middle phalanges, as also demonstrated on the prior study performed 06/17/2018. The fifth metatarsal and the distal phalanx remain in place. There is no fracture, dislocation, or significant arthritic change. There is no bony erosion, cortical destruction, periosteal elevation, or other radiographic evidence of osteomyelitis. Pes planus is noted. No soft tissue gas is demonstrated. Atherosclerotic arterial calcification is noted. Procedure Note Inder Schwartz MD - 10/27/2024 HISTORY: The patient is a 64-year-old diabetic male with an open wound ofthe left fifth toe. FINDINGS: AP and lateral radiographs of the left foot, along with aconed-down oblique view of the left fifth toe, are obtained. The patientis again seen to have undergone resection of the fifth proximal and middlephalanges, as also demonstrated on the prior study performed 06/17/2018.The fifth metatarsal and the distal phalanx remain in place. There is nofracture, dislocation, or significant arthritic change. There is no bonyerosion, cortical destruction, periosteal elevation, or other radiographicevidence of osteomyelitis. Pes planus is noted. No soft tissue gas isdemonstrated. Atherosclerotic arterial calcification is noted. IMPRESSION: No fracture, dislocation, radiographic evidence of osteomyelitis. Thepatient is seen to have undergone remote resection of the fifth proximalmiddle phalanges as also demonstrated on 06/17/2018. Please note that osteomyelitis cannot be excluded on the basis ofradiography and, if there is clinical concern for osteomyelitis, furtherevaluation with radionuclide bone scan or with MRI should be considered. -------- FINAL REPORT -------- Dictated By: Inder Schwartz Dictated Date: 10/27/2024 08:32 ET Assigned Physician: Inder Schwartz Reviewed and Electronically Signed By: Inder Schwartz Signed Date: 10/27/2024 08:36 ET Workstation ID: [id number] Transcribed By: Self Edit Transcribed Date: 10/27/2024 08:32 ET us Corinna Sage [employer] IMG XR PROCEDURES Final R esult * (ABNORMAL) Culture wound with gram stain (10/26/2024 11:25 PM EDT) Culture, Wound Methicillin-Sensiti ve Staphylococcus aureus(A) TONYA 10/30/2024 8:47 AM EDT [facility] Comment: The organism value for this result has been updated. These results have been appended to the previously preliminary verified report. Edited result: Previously reported as Staphylococcus aureus on 10/28/2024 at 1348 EDT. Culture, Wound Light Growth Escherichia coli ESBL(A) TONYA 10/30/2024 8:47 AM EDT [facility] Comment: THIS ORGANISM IS POSITIVE FOR EXTENDED SPECTRUM BETA-LACTAMASE (ESBL). EXTENDED SPECTRUM BETA-LACTAMASE PRODUCING ORGANISMS DEMONSTRATE DECREASED ACTIVITY WITH PENICILLINS, CEPHALOSPORINS AND AZTREONAM. The organism value for this result has been updated. These results have been appended to the previously preliminary verified report. This is an edited result. Previous organism was Gram negative bacilli on 10/29/2024 at 0957 EDT. Culture, Wound Streptococcus beta-hemolytic Group B(A) TONYA 10/30/2024 8:47 AM EDT [facility] Comment: Susceptibility testing is not routinely performed for Beta Streptococcus isolates since these organisms are predictably sensitive to Penicillin. If the Patient is not responding, is allergic to Penicillin, or further therapeutic information is requir ed, please consult an Infectious Disease Specialist. The organism value for this result has been updated. These results have been appended to the previously preliminary verified report. Gram Stain Result No polymorphonuclear leukocytes seen(A) 10/30/2024 8:47 AM EDT [facility] Gram Stain Result No epithelial cells seen(A) 10/30/2024 8:47 AM EDT [facility] Gram Stain Result Moderate Gram positive cocci in pairs(A) 10/30/2024 8:47 AM EDT [facility] Gram Stain Result Rare Gram negative bacilli(A) 10/30/2024 8:47 AM EDT [facility] Gram Stain Result Rare Gram positive bacilli(A) 10/30/2024 8:47 AM EDT [facility] Swab Structure of toe of left foot / Unknown Non-blood Collection / Unknown 10/26/2024 11:25 PM EDT 10/26/2024 11:34 PM EDT [facility] - 10/30/2024 8:47 AM EDT Normal skin bea present Organism Antibiotic Method Susceptibility Methicillin-Sensitive Staphylococcus aureus Benzylpenicillin TONYA >=0.5 ug/ml: Resistant Methicillin-Sensitive Staphylococcus aureus Oxacillin TONYA 0.5 ug/ml: Susceptible Methicillin-Sensitive Staphylococcus aureus Gentamicin TONYA <=0.5 ug/ml: Susceptible Methicillin-Sensitive Staphylococcus aureus Ciprofloxacin TONYA <=0.5 ug/ml: Susceptible Methicillin-Sensitive Staphylococcus aureus Levofloxacin TONYA <=0.12 ug/ml: Susceptible Methicillin-Sensitive Staphylococcus aureus Moxifloxacin TONYA <=0.25 ug/ml: Susceptible Methicillin-Sensitive Staphylococcus aureus Erythromycin TONYA >=8 ug/ml: Resistant Methicillin-Sensitive Staphylococcus aureus Clindamycin TONYA <=0.25 ug/ml: Susceptible Methicillin-Sensitive Staphylococcus aureus Quinupristin/Dalfopristin TONYA <=0.25 ug/ml: Susceptible Methicillin-Sensitive Staphylococcus aureus Linezolid TONYA 2 ug/ml: Susceptible Methicillin-Sensitive Staphylococcus aureus Vancomycin TONYA <=0.5 ug/ml: Susceptible Methicillin-Sensitive Staphylococcus aureus Tetracycline TONYA <=1 ug/ml: Susceptible Methicillin-Sensitive Staphylococcus aureus Rifampin TONYA <=0.5 ug/ml: Susceptible Methicillin-Sensitive Staphylococcus aureus Trimethoprim/Sulfamethoxazo le TONYA <=10 ug/ml: Susceptible Escherichia coli ESBL Amoxicillin/Clavulanate TONYA >=32 ug/ml: Resistant Escherichia coli ESBL Ampicillin/Sulbactam TONYA >=32 ug/ml: Resistant Escherichia coli ESBL Piperacillin/Tazobactam TONYA 8 ug/ml: Susceptible Escherichia coli ESBL Cefazolin (Other) TONYA 16 ug/ml: Resistant Escherichia coli ESBL Cefoxitin TONYA [...] TONYA <=0.12 ug/ml: Susceptible Escherichia coli ESBL Trimethoprim/Sulfa methoxazo le TONYA <=20 ug/ml: Susceptible Corinna Sage INSPECTOR [employer] LAB MICROBIOLOGY - GENERA L ORDERABLES Final Result [facility] [address] [place] [address], * (ABNORMAL) Lipid panel with reflex to direct LDL (09/13/2024 4:39 AM EDT) Cholesterol 104 0 - 200 mg/dL LAB CHEMISTRY METHOD 09/13/2024 9:34 AM EDT [facility] Triglycerides 131 0 - 150 mg/dL LAB CHEMISTRY METHOD 09/13/2024 9:34 AM EDT [facility] HDL 36(L) >=40 mg/dL LAB CHEMISTRY METHOD 09/13/2024 9:34 AM EDT [facility] LDL Calculated 42 0 - 100 mg/dL LAB CHEMISTRY METHOD 09/13/2024 9:34 AM EDT [facility] VLDL Cholesterol Jay 26.2 mg/dL LAB CHEMISTRY METHOD 09/13/2024 9:34 AM EDT [facility] Non HDL Chol. (LDL+VLDL) 68 <145 mg/dL LAB CHEMISTRY METHOD 09/13/2024 9:34 AM EDT [facility] Chol/HDL Ratio 2.9 0.0 - 4.4 LAB CHEMISTRY METHOD 09/13/2024 9:34 AM EDT [facility] Blood Venous blood specimen / Unknown Venipuncture / Unknown 09/13/2024 4:39 AM EDT 09/13/2024 8:20 AM EDT us My Oconnor MD LAB BLOOD ORDERABLES Final Resu lt Performing Organization Address [facility]/ZIP Co de Phone Number [facility] [address] [place] [address], [place] [phone] * (ABNORMAL) Vitamin D 25 hydroxy (09/13/2024 4:39 AM EDT) [facility] Vit D, 25-Hydroxy 25.3(L) 30.0 - 80.0 ng/mL LAB CHEMISTRY METHOD 09/13/2024 10:32 AM EDT [facility] Blood Venous blood specimen / Unknown Venipuncture / Unknown 09/13/2024 4:39 AM EDT 09/13/2024 8:20 AM EDT us My Oconnor MD LAB BLOOD ORDERABLES Final Resu lt Performing Organization Address [facility]/ZIP Co de Phone Number [facility] [address] [place] [address], [place] [phone] * (ABNORMAL) Complete blood count (09/13/2024 4:39 AM EDT) [facility] WBC 8.2 4.8 - 10.8 K/mcL LAB HEMETOLOGY METHOD 09/13/2024 9:10 AM EDT [facility] RBC 4.40(L) 4.50 - 5.50 M/mcL LAB HEMETOLOGY METHOD 09/13/2024 9:10 AM [facility] Hemoglobin 11.8(L) 13.5 - 17.5 g/dL LAB HEMETOLOGY METHOD 09/13/2024 9:10 AM [facility] Hematocrit 40.4(L) 42.0 - 54.0 % LAB HEMETOLOGY METHOD 09/13/2024 9:10 AM [facility] MCV 91.2 79.0 - 98.0 FL LAB HEMETOLOGY METHOD 09/13/2024 9:10 AM [facility] MCH 26.6(L) 27.0 - 32.0 pcg LAB HEMETOLOGY METHOD 09/13/2024 9:10 AM [facility] MCHC 29.2(L) 32.0 - 37.0 g/dL LAB HEMETOLOGY METHOD 09/13/2024 9:10 AM [facility] RDW 15.4(H) 11.0 - 15.0 % LAB HEMETOLOGY METHOD 09/13/2024 9:10 AM [facility] Platelets 364 130 - 400 K/mcL LAB HEMETOLOGY METHOD 09/13/2024 9:10 AM [facility] MPV 9.4 7.0 - 11.0 FL LAB HEMETOLOGY METHOD 09/13/2024 9:10 AM [facility] NRBC 0.0 <1.0 % LAB HEMETOLOGY METHOD 09/13/2024 9:10 AM [facility] NRBC Absolute 0.00 <0.10 K/mcL LAB HEMETOLOGY METHOD 09/13/2024 9:10 AM [facility] Blood Venous blood specimen / Unknown Venipuncture / Unknown 09/13/2024 4:39 AM EDT 09/13/2024 8:20 AM EDT us My Oconnor MD LAB BLOOD ORDERABLES Final Resu lt Performing Organization Address City/[facility]/ZIP Co de Phone Number [facility] [address] [place] [address], [place] [phone] * Thyroid stimulating hormone (09/13/2024 4:39 AM EDT) Pathologist [facility] TSH 3.20 0.40 - 4.00 mcIU/mL LAB CHEMISTRY METHOD 09/13/2024 10:32 AM EDT [facility] Blood Venous blood specimen / Unknown Venipuncture / Unknown 09/13/2024 4:39 AM EDT 09/13/2024 8:20 AM EDT us My Oconnor MD LAB BLOOD ORDERABLES Final Resu lt Performing Organization Address [facility] Co de Phone Number [facility] [address] [place] [address], [place] [phone] * (ABNORMAL) Hemoglobin A1c (09/13/2024 4:39 AM EDT) [facility] Hemoglobin A1C 10.0(H) <6.5 % LAB CHEMISTRY METHOD 09/13/2024 2:10 PM EDT [facility] Mean Bld Glu Estim. 240 mg/dL LAB CHEMISTRY METHOD 09/13/2024 2:10 PM EDT [facility] Blood Venous blood specimen / Unknown Venipuncture / Unknown 09/13/2024 4:39 AM EDT 09/13/2024 8:20 AM EDT us My Oconnor MD LAB BLOOD ORDERABLES Final Resu lt Performing Organization Address City/[facility]/ZIP Co de Phone Number [facility] [address] [place] [address], [place] [phone] * Folate (09/13/2024 4:39 AM EDT) [facility] Folate 7.6 2.8 - 17.0 ng/ml LAB CHEMISTRY METHOD 09/13/2024 9:56 AM EDT [facility] Blood Venous blood specimen / Unknown Venipuncture / Unknown 09/13/2024 4:39 AM EDT 09/13/2024 8:20 AM EDT My Oconnor MD LAB BLOOD ORDERABLES Final Resu lt [facility] [address] [place] [address], [place] [phone] * Vitamin B12 (09/13/2024 4:39 AM EDT) [facility] Vitamin B-12 668 250 - 900 pcg/mL LAB CHEMISTRY METHOD 09/13/2024 9:56 AM EDT [facility] Blood Venous blood specimen / Unknown Venipuncture / Unknown 09/13/2024 4:39 AM EDT 09/13/2024 8:20 AM EDT My Oconnor MD LAB BLOOD ORDERABLES Final Resu lt Performing Organization Address [facility]/ZIP Co de Phone Number [facility] [address] [place] [address], [place] [phone] * (ABNORMAL) Comprehensive metabolic panel (09/13/2024 4:39 AM EDT) [facility] Sodium 135 133 - 145 mmol/L LAB CHEMISTRY METHOD 09/13/2024 9:56 AM EDT [facility] Potassium 4.7 3.5 - 5.5 mmol/L LAB CHEMISTRY METHOD 09/13/2024 9:56 AM EDT [facility] Chloride 97 96 - 110 mmol/L LAB CHEMISTRY METHOD 09/13/2024 9:56 AM EDT [facility] CO2 36(H) 21 - 32 mmol/L LAB CHEMISTRY METHOD 09/13/2024 9:56 AM [facility] Anion Gap 2(L) 3 - 11 LAB CHEMISTRY METHOD 09/13/2024 9:56 AM [facility] Glucose 125(H) 70 - 100 mg/dL LAB CHEMISTRY METHOD 09/13/2024 9:56 AM [facility] BUN 22 5 - 25 mg/dL LAB CHEMISTRY METHOD 09/13/2024 9:56 AM [facility] Creatinine 0.85 0.70 - 1.30 mg/dL LAB CHEMISTRY METHOD 09/13/2024 9:56 AM [facility] eGFR 96 >=60 mL/min/1. 73m2 LAB CHEMISTRY METHOD 09/13/2024 9:56 AM [facility] Comment:Calculation based on the Chronic Kidney Disease Epidemiology Collaboration (CKD-EPI) equation refit without adjustment for race. BUN/Creatinine Ratio 25.9 LAB CHEMISTRY METHOD 09/13/2024 9:56 AM [facility] Calcium 8.2(L) 8.5 - 10.5 mg/dL LAB CHEMISTRY METHOD 09/13/2024 9:56 AM [facility] AST (SGOT) 23 10 - 42 unit/L LAB CHEMISTRY METHOD 09/13/2024 9:56 AM [facility] ALT (SGPT) 23 10 - 60 unit/L LAB CHEMISTRY METHOD 09/13/2024 9:56 AM [facility] Alkaline Phosphatase 117 42 - 121 unit/L LAB CHEMISTRY METHOD 09/13/2024 9:56 AM [facility] Total Protein 6.5 6.0 - 8.0 g/dL LAB CHEMISTRY METHOD 09/13/2024 9:56 AM [facility] Albumin 2.4(L) 3.2 - 5.0 g/dL LAB CHEMISTRY METHOD 09/13/2024 9:56 AM [facility] Total Bilirubin 0.4 0.0 - 1.4 mg/dL LAB CHEMISTRY METHOD 09/13/2024 9:56 AM EDT [facility] Blood Venous blood specimen / Unknown Venipuncture / Unknown 09/13/2024 4:39 AM EDT 09/13/2024 8:20 AM EDT us My Oconnor MD LAB BLOOD ORDERABLES Final Resu lt [facility] [address] [place] [address], [place] [phone] from Last 3 Months Additional Health Concerns Infection Onset Date Last Indicated ESBL 07/27/2024 10/26/2024 Insurance [facility] MEDICARE Member Subscriber Plan / Payer (Ef fective 2023-Present) Name:Ramiro Ram Relation to Subscriber:Self Name:Ramiro Hamm Payer ID:[id number] Group ID:[id number] Type:Not on file Address: [place] [address] [address] [place] [phone] Advance Directives Documents on File Type Date Recorded 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 Health Care Decision (hx) 05/19/2020 AD SUTTON DIRECTIVE Health Care Decision (hx) 05/19/2020 AD SUTTON DIRECTIVE Health Care Decision (hx) 05/19/2020 AD SUTTON DIRECTIVE Health Care Decision (hx) 05/19/2020 AD SUTTON DIRECTIVE Health Care Decision (hx) 05/19/2020 AD SUTTON DIRECTIVE Health Care Decision (hx) 05/19/2020 AD SUTTON DIRECTIVE Health Care Decision (hx) 05/19/2020 AD SUTTON DIRECTIVE Health Care Decision (hx) 05/19/2020 AD SUTTON DIRECTIVE Health Care Decision (hx) 05/19/2020 AD SUTTON DIRECTIVE Health Care Decision (hx) 05/19/2020 AD SUTTON DIRECTIVE Health Care Decision (hx) 05/19/2020 AD SUTTON DIRECTIVE Health Care Decision (hx) 01/18/2018 AD SUTTON DIRECTIVE Health Care Decision (hx) 01/18/2018 AD SUTTON DIRECTIVE Health Care Decision (hx) 01/18/2018 AD SUTTON DIRECTIVE Health Care Decision (hx) 01/18/2018 AD SUTTON DIRECTIVE Health Care Decision (hx) 01/18/2018 AD SUTTON DIRECTIVE Health Care Decision (hx) 01/18/2018 AD SUTTON DIRECTIVE Health Care Decision (hx) 01/18/2018 AD STUTON DIRECTIVE Health Care Decision (hx) 01/18/2018 AD SUTTON DIRECTIVE Health Care Decision (hx) 01/18/2018 AD SUTTON DIRECTIVE Health Care Decision (hx) 01/18/2018 AD SUTTON DIRECTIVE Health Care Decision (hx) 01/18/2018 AD SUTTON DIRECTIVE Health Care Decision (hx) 01/18/2018 AD SUTTON DIRECTIVE Care Teams Mri Tech Relationship Specialty Start Date End Date Linh Cook MD [address] [place] [id number] PCP - General Internal Medicine 11/05/20
== END 2024-12-06 15:06 | disposition home or self-care (01) ==
LOC: HO.ENCR 13:52
PROVIDERS: PCP Internal Medicine; Visit Provider Internal Medicine Endocrinology, Diabetes & Metabolism
DX: E11.65 Type 2 diabetes mellitus with hyperglycemia (principal)
CPT/HCPCS: 99214; G2211

== ENCOUNTER → 2024-12-06 13:51 | Outpatient (BNVA) | payer OTHER, SELFPAY | PROVIDERS: PCP Internal Medicine; Visit Provider Internal Medicine Endocrinology, Diabetes & Metabolism | DX: E11.65 Type 2 diabetes mellitus with hyperglycemia (principal) | CPT/HCPCS: 82947; 99212 ==

== ENCOUNTER 2024-12-27 15:22 | Outpatient (REF) | payer OTHER, SELFPAY ==
--- OUTSIDE RECORDS SUMMARY | 2024-12-21 12:45 | XMS_ITS | Encounter Summary ---
Author Organization [facility] Address [address] [place] [address] Care Team Providers Care Space Operations Officer Name Role Phone Linh Cook MD Primary Care Provide r Reason for Visit * Reason Comments Wound Care Encounter Details Date Type Department Care Team (Late st Contact Info) Description 12/21/2024 12:45 PM EDT Office Visit [facility] [address] [place] [id number] Tim Mclaughlin PA [address] [place] [address] Type 2 diabetes mellitus with other skin ulcer (CODE) ([facility] V24, [facility] V28) (Primary Dx); Non-pressure chronic ulcer of other part of right lower leg with fat layer exposed ([facility] V24, [facility] V28) Social History Tobacco Use Types Packs/Day Years Used Date Smoking Tobacco: Never Smokeless Tobacco: Never Tobacco Cessation:Counseling Given: Not Answered Alcohol Use Standard Drinks/Week Comments No 0 (1 standard drink = 0.6 oz pur e alcohol) Interpersonal Safety Answer Date Record ed Physical Abuse Unrecognized value 12/08/2024 Verbal Abuse Unrecognized value 12/08/2024 Sex and Gender Information Value Date Recorded Sex Assigned at Male 04/01/2024 3:14 PM EST Legal Sex Male 5:37 AM EST Gender Identity Male 04/01/2024 3:14 PM EST Sexual Orientation Choose not to disclose 2024 3:16 PM EST documented as of this encounter Last Filed Vital Signs Vital Sign Reading Time Taken Comments Blood Pressure 96/44 12/21/2024 12:58 PM EDT Pulse 85 12/21/2024 12:58 PM EDT Temperature 36 C (96.8 F) 12/21/2024 12:58 PM EDT Respiratory Rate 17 12/21/2024 12:58 PM EDT Oxygen Saturation 96% 12/21/2024 12:58 PM EDT Inhaled Oxygen Concentration - - Weight 143 kg (315 lb) 12/21/2024 12:58 PM EDT Height 180.3 cm (5' 11 ) 12/21/2024 12:58 PM EDT Body Mass Index 43.93 12/21/2024 12:58 PM EDT documented in this encounter Functional Status * Are you [...] Carolyn Arellano RN documented in this encounter Progress Notes * Liliane Leone RN - 12/21/2024 12:45 PM EDT PROVIDER ORDERS Go to ER if you are presenting with fever, chills, increased redness, pain, swelling, warmth aroundwound area and/or foul smelling odor. If you have any questions or concerns, please contact the [facility] at . Follow up(s)/ Referrals: N/A Prison: Home care: [facility] Additional Orders: Maintain good blood sugar control Lidocaine Orders: Apply Lidocaine 5% Topical Ointment prior to debridements at Wound Care appointments Edema Control: (If your compression wrap(s) feel to tight, please elevate your leg(s) about heart level. If your wrap(s) are becoming painful and/or you loose sensation of toes/ are having toe discoloration (a change from your baseline), please remove / unwrap compression and notify [facility] at . ) Elevate legs above heart level as much as possible, Tubigrip E Offloading: N/A Negative Pressure Wound Therapy: (If wound vac is off/non functioning for more than 2 hours, please remove vac dressing, apply a wetto dry dressing and notify your home care agency) N/A Cellular/Tissue Based Products: N/A Bathing / Showering / Hygiene: May shower with protection but DO NOT get wound dressing(s) wet. Protect dressing(s) with water repellant cover ( for example- large plastic bag or cast bag) and then may take shower. Non-wound Condition/ Other Skin Care: Moisturize skin daily, avoiding wound area Wound Location(s): Wound #1 (Right lateral lower leg): Cleanser: Cleanse with Normal Saline Periwound: Apply Zinc Oxide to julienne wound Topical: N/A Primary dressing: Hydrofera Blue- cut to fit to wound bed (if classic type, moisten with saline andsqueeze out excess prior to apply to wound bed) Secondary dressinx4 woven gauze (non-sterile) Secure with: 3 conforming gauze roll, 1 paper tape Compression Therapy: Tubigrip E Dressing Change Frequency: Three times each week * ADA Laureano - 12/21/2024 12:45 PM EDTAssociated Order(s): Debridement Diabetic Ulcer Right;Lateral;Lower Leg Post-Procedure Diagnose(s): Non-pressure chronic ulcer of other part of right lower leg with fat layer exposed (CMS/HCC V24, CMS/HCC V28); Type 2 diabetes mellitus with other skin ulcer (CODE) ([facility] V24, [facility] V28) Images from the original note were not included. [facility] at [address] [address] New Patient Visit Visit Date: 12/21/2024 Patient Name: Ramiro Hamm Date of : 1960 PCP: Linh Ramos MD HPI: Ramiro Hamm is a 64 y.o. male who presents to the to the wound care center for consultationongoing wound to the right lateral lower leg. Patient had recent hospital admission for worsening wound infection and cellulitis on 12/08/2024. At that time patient received IV antibiotics and was seen by podiatry and wound was debrided. Patient has longstanding history of atrial flutter, CHF, diabetic neuropathy, hypertension, history of substance abuse, history of osteomyelitis with partial amputation of the left fifth toe. Patient states the wound initially happened when he hit himself on a broken wheelchair. Patient thought nothing of it and the wound began to worsen over time. Patient even tually went to the hospital for further evaluation. Patient has completed all oral antibiotics fromrecent admission. 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 Patient states he does not have feeling in that area. Patient does have VNA services at this time. Patient denies fever or chills. Patient's most recent A1c was 10. The importance of tightglycemic control was discussed with patient. Assessment and Plan: Type 2 diabetes mellitus with other skin ulcer (CODE) ([facility] V24, [facility] V28) (Primary) - Culture wound with gram stain Non-pressure chronic ulcer of other part of right lower leg with fat layer exposed ([facility] V24, [facility] V28) - Culture wound with gram stain Other orders - Debridement Patient to follow-up in 1 week. Wound was aggressively debrided today with a fair amount of bioburden removed. Wound culture was obtained at this time which will dictate the need for any antibiotics.Will use Hydrofera Blue topically with Tubigrip compression at this time. Importance of ongoing tight glycemic control was discussed with patient. With patient's current comorbidities patient is at high risk for wound infection we will monitor closely. Will consider arterial and venous imaging on next visit. All questions were answered to his satisfaction. He was counseled regarding my impressions, instructions for management, and the importance of compliance with treatment. Follow up in about 1 week (around 12/28/2024) for Follow up with Joel Mclaughlin PA-C. >>>>>>>>>>>>>>>>>>>>>>>>>>>>>>>>>>>>>>>>>>>>>>>>>>> Past medical history: He has a past medical history of CHF (congestive heart failure) ([facility] V24, [facility] V28) (01/21/2018), Diabetic neuropathy ([facility] V24, [facility] V28) (01/21/2018), Diabetic ulcer of toe ([facility] V24, [facility] V28) (01/21/2018), DM (diabetes mellitus) with peripheral vascular complication ([facility] V24, [facility] V28) (01/21/2018), DM (diabetes mellitus), type 2 with neurological complications ([facility] V24, [facility] V28) (01/21/2018), History of partial amputation of toe ([facility] V24) (01/21/2018),History of substance abuse ([facility] V24, [facility] V28) (01/21/2018), Hypertension (01/21/2018), and Osteomyelitis ([facility] V24, [facility] V28) (01/21/2018). Past surgical history: He has a past surgical history that includes Other surgical history (Left, 01/13/2018). Allergies: He is allergic to lisinopril. Medications: He has a current medication list which includes the following prescription(s): allopurinol, atorvastatin, bumetanide, colchicine, empagliflozin, gabapentin, humulin r u-500 (conc) insulin, metolazone, mounjaro, rivaroxaban, toprol xl, and sacubitril-valsartan. Social History: The patient reports that he has never smoked. He has never used smokeless tobacco. He reports that he does not currently use drugs after having used the following drugs: Cocaine and Marijuana/Cannabis. He reports that he does not drink alcohol.. Counseling given: Not Answered Family medical history: The patient's family history includes Diabetes in his mother; Stroke in his father. Review of Systems: Review of Systems Constitutional: Negative for chills and fever. Respiratory: Negative for shortness of breath. Cardiovascular: Negative for chest pain. Gastrointestinal: Negative for nausea and vomiting. Skin: Positive for wound. Physical Exam: Physical Exam Vitals and nursing note reviewed. Exam conducted with a ton cylinder inspector present. Constitutional: Appearance: Normal appearance. HENT: Head: Normocephalic. Mouth/Throat: Mouth: Mucous membranes are moist. Eyes: Extraocular Movements: Extraocular movements intact. Pulmonary: Effort: Pulmonary effort is normal. Skin: General: Skin is warm. Comments: See wound details in assessment and procedure note Generalized bilateral lower leg edema is noted. Right lateral lower leg wound is noted with granulation tissue and slough within the wound bed. No undermining. In the wound edges. Wound is not malodorous. Wound culture obtained at this time. Periwound is intact without erythema induration. Neurological: Mental Status: He is alert and oriented to person, place, and time. Psychiatric: Mood and Affect: Mood normal. Vital Signs: Visit Vitals BP (!) 96/44 Pulse 85 Temp 36 ??C (96.8 ??F) (Temporal) Resp 17 Wound Assessment: If photograph of wound not visible on this note, please check under Media tab. Wound Diabetic Ulcer 12/08/24 Leg Right;Lateral;Lower (Active) Date First Assessed/Time First Assessed: 12/08/24 1603 Primary Wound Type: Diabetic Ulcer Present on Admission: Yes Hand Hygiene Completed: Yes Location: Leg Wound Location Orientation: Right;Lateral;Lower Assessments 12/08/2024 4:04 PM 12/21/2024 1:10 PM Wound Image Wound Bed Tissue Assessment Yellow Granulation;Sloughing Julienne-Wound Assessment Red Scarred;Intact Wound Length (cm) -- 1 cm Wound Width (cm) -- 2.5 cm Wound Surface Area (cm^2) -- 1.96 cm^2 Wound Depth (cm) -- 0.3 cm Wound Volume (cm^3) -- 0.393 cm^3 Wound Healing % -- 35 Drainage Description -- Unable to assess Treatments -- Cleansed Dressing Status Other (Comment) Removed Wound Bed Granulation (%) -- 85 % Wound Bed Epithelialization (%) -- 0 % Wound Bed Slough (%) -- 15 % Wound Bed Eschar (%) -- 0 % Tunneling -- 0 cm Undermining -- 0 cm Edges -- Attached edges;Well-defined edges Non-staged Wound Description -- Full thickness Active Orders Date Order Priority Status Authorizing Provider 12/21/24 1330 Debridement Routine Active ADA Laureano Inactive Orders Date Order Priority Status Authorizing Provider 12/09/24 1418 Wound dressing Every other day Diabetic Ulcer Pretibial Distal;Right;Lateral Routine Discontinued Maura Dahl MD 12/08/24 1735 Wound Care Inpatient Follow-Up Diabetic Ulcer Pretibial Distal;Right;Lateral Routine Completed ADA Stanton - Reason for Consult?: wound Pertinent Labs: Albumin Date Value Ref Range Status 12/08/2024 3.1 (L) 3.2 - 5.0 g/dL Final WBC Date Value Ref Range Status 12/11/2024 5.9 4.8 - 10.8 K/mcL Final WBC, Urine Date Value Ref Range Status 07/27/2024 53.0 (H) 0 - 4 /HPF Final Prealbumin Date Value Ref Range Status 08/02/2024 20 18 - 45 mg/dL Final Hemoglobin A1C Date Value Ref Range Status 09/13/2024 10.0 (H) <6.5 % Final Glucose POCT Date Value Ref Range Status 12/11/2024 192 (H) 70 - 100 mg/dL Final Procedure Note: Debridement Diabetic Ulcer Right;Lateral;Lower Leg Performed by: ADA Laureano Authorized by: ADA Laureano Associated wounds: Wound Diabetic Ulcer 12/08/24 Leg Right;Lateral;Lower Consent: Consent obtained: Verbal Consent given by: Patient Risks discussed: Yes Time out: Immediately prior to the procedure a time out was called Debridement Details: Performed by: ADA Type: surgical Level: subcutaneous tissue Pain control: Lidocaine 4% Severity of Tissue Pre Debridement: Fat layer exposed Severity of Tissue Post Debridement: Fat layer exposed Time taken: 12/21/2024 1:10 PM Length (cm): 1 Width (cm): 2.5 Depth (cm): 0.3 Area (cm^2): 1.96 Time taken: 12/21/2024 1:11 PM Length (cm): 1 Width (cm): 2.5 Depth (cm): 0.3 Percent Debrided (%): 100 Surface Area (cm^2): 2.5 Area Debrided (cm^2): 2.5 Volume (cm^3): 0.75 Tissue and other material debrided: subcutaneous tissue Devitalized tissue debrided: biofilm and slough Instrument: Curette and forceps Amount of bleeding: none Hemostasis obtained with: Not applicable Procedural pain: 0 Post-procedural pain: 0 Response to treatment: Procedure was tolerated well PHYSICIAN ORDERS Patient Instructions PROVIDER ORDERS Go to ER if you are presenting with fever, chills, increased redness, pain, swelling, warmth aroundwound area and/or foul smelling odor. If you have any questions or concerns, please contact the [facility] at . Follow up(s)/ Referrals: N/A Prison: Home care: [facility] Additional Orders: Maintain good blood sugar control Lidocaine Orders: Apply Lidocaine 5% Topical Ointment prior to debridements at Wound Care appointments Edema Control: (If your compression wrap(s) feel to tight, please elevate your leg(s) about heart level. If your wrap(s) are becoming painful and/or you loose sensation of toes/ are having toe discoloration (a change from your baseline), please remove / unwrap compression and notify [facility] at . ) Elevate legs above heart level as much as possible, Tubigrip E Offloading: N/A Negative Pressure Wound Therapy: (If wound vac is off/non functioning for more than 2 hours, please remove vac dressing, apply a wetto dry dressing and notify your home care agency) N/A Cellular/Tissue Based Products: N/A Bathing / Showering / Hygiene: May shower with protection but DO NOT get wound dressing(s) wet. Protect dressing(s) with water repellant cover ( for example- large plastic bag or cast bag) and then may take shower. Non-wound Condition/ Other Skin Care: Moisturize skin daily, avoiding wound area Wound Location(s): Wound #1 (Right lateral lower leg): Cleanser: Cleanse with Normal Saline Periwound: Apply Zinc Oxide to julienne wound Topical: N/A Primary dressing: Hydrofera Blue- cut to fit to wound bed (if classic type, moisten with saline andsqueeze out excess prior to apply to wound bed) Secondary dressinx4 woven gauze (non-sterile) Secure with: 3 conforming gauze roll, 1 paper tape Compression Therapy: Tubigrip E Dressing Change Frequency: Three times each week 12/21/2024 1:38 PM EDT ADA Mera Cosigned by Ludin Viveros MD at 12/23/2024 3:56 PM EDT * Constance Michelle RN - 12/21/2024 12:45 PM EDT Discharge Patient directed to check out at front desk associate and collect visit summary with wound care directions and book follow up as directed. Dressings applied: Wound #1 (Right lateral lower leg): Cleanser: Normal Saline Periwound: Zinc Oxide to julienne wound Primary dressing: Hydrofera Blue- moistened with normal saline Secondary dressinx4 woven gauze Secure with: 3 conforming gauze roll, 1 paper tape Compression Therapy: Tubigrip E Dressing technique was demonstrated and explained. Patient questions answered. Pt discharge from wound care center without issue or incidence. documented in this encounter Plan of Treatment Not on file documented as of this encounter Goals Goal Patient Goal Type Associated Problems Recent Progress Patient-Stated? Author Decrease Wound Volume by X% by date (in notes) Care Plan Impaired Tissue Liliane Hubbard RN Patient and Caregiver Understand Wound Care Education Care Plan Impaired Tissue No Liliane Leone RN Wound volume breakdown reduced by X% by week 4 Care Plan Impaired Tissue No Liliane Leone RN Wound volume breakdown reduced by X% by week 8 Care Plan Impaired Tissue No Liliane Leone RN Wound volume breakdown reduced by X% by week 12 Care Plan Impaired Tissue No Liliane Leone RN Quit using tobacco (cigarettes, smokeless, etc) Care Plan Education needed on impact of smoking on wound No Liliane Loene RN Reduce tobacco use (cigarettes, smokeless, etc) Care Plan Education needed on impact of smoking on wound No Liliane Leone RN Decrease Wound Volume by X% by date (in notes) Care Plan Education needed on impact of smoking on wound No Liliane Leone RN Patient and Caregiver Understand Wound Care Education Care Plan Education needed related to ulceration/compr omised skin integrity. No Liliane Leone RN documented as of this encounter Procedures Procedure Name Priority Date/Time Associated Diagnosis Comments CULTURE WOUND WITH GRAM STAIN Routine 12/21/2024 1:30 PM EDT Type 2 diabetes mellitus with other skin ulcer (CODE) ([facility] V24, CMS/HCC V28) Non-pressure chronic ulcer of other part of right lower leg with fat layer exposed ([facility] V24, CMS/HCC V28) DEBRIDEMENT Routine 12/21/2024 12:45 PM EDT Type 2 diabetes mellitus with other skin ulcer (CODE) (CMS/HCC V24, CMS/HCC V28) Non-pressure chronic ulcer of other part of right lower leg with fat layer exposed (CMS/HCC V24, CMS/HCC V28) documented in this encounter Results * (ABNORMAL) Culture wound with gram stain (12/21/2024 1:30 PM EDT) Culture, Wound Corrie albicans/dubliniensi s(A) 12/25/2024 10:33 AM EDT [facility] Comment: The organism value for this result has been updated. These results have been appended to the previously preliminary verified report. Edited result: Previously reported as Yeast on 12/24/2024 at 1004 EDT. Gram Stain Result No polymorphonuclear leukocytes, No epithelial cells, and No organisms noted 12/25/2024 10:33 AM EDT [facility] Swab Structure of right lower limb / Unknown Non-blood Collection / Unknown 12/21/2024 1:30 PM EDT 12/21/2024 3:52 PM EDT [facility]ative [facility] - 12/25/2024 10:33 AM EDT Normal skin bea also noted Tim [facility] MICROBIOLOGY - GENERAL ORDERABLES Final Result [facility] ([facility] [address] [place] [address], [place] [phone] * Debridement Diabetic Ulcer Right;Lateral;Lower Leg (12/21/2024 12:45 PM EDT) Narrative Ludin Viveros MD - 12/21/2024 12:45 PM EDT Ludin Viveros MD 12/23/2024 3:56 PM Debridement Diabetic Ulcer Right;Lateral;Lower Leg Performed by: ADA Laureano Authorized by: ADA Laureano Associated wounds: Wound Diabetic Ulcer 12/08/24 Leg Right;Lateral;Lower Consent: Consent obtained: Verbal Consent given by: Patient Risks discussed: Yes Time out: Immediately prior to the procedure a time out was called Debridement Details: Performed by: ADA Type: surgical Level: subcutaneous tissue Pain control: Lidocaine 4% Severity of Tissue Pre Debridement: Fat layer exposed Severity of Tissue Post Debridement: Fat layer exposed Time taken: 12/21/2024 1:10 PM Length (cm): 1 Width (cm): 2.5 Depth (cm): 0.3 Area (cm^2): 1.96 Time taken: 12/21/2024 1:11 PM Length (cm): 1 Width (cm): 2.5 Depth (cm): 0.3 Percent Debrided (%): 100 Surface Area (cm^2): 2.5 Area Debrided (cm^2): 2.5 Volume (cm^3): 0.75 Tissue and other material debrided: subcutaneous tissue Devitalized tissue debrided: biofilm and slough Instrument: Curette and forceps Amount of bleeding: none Hemostasis obtained with: Not applicable Procedural pain: 0 Post-procedural pain: 0 Response to treatment: Procedure was tolerated well Tim [facility] IN CLINIC/BEDSIDE ORDERABLE S Final Result documented in this encounter Visit Diagnoses Diagnosis Type 2 diabetes mellitus with other skin ulcer (CODE) ([facility] V24, [facility] V28)- Primary Non-pressure chronic ulcer of other part of right lower leg with fat layer exposed ([facility] V24, [facility] V28) documented in this encounter Additional Health Concerns Active Problems Noted Date Diagnosed Date Impaired Tissue 12/21/2024 Education needed on impact of smoking on wound 1 Education needed related to ulceration/compromised skin integrity. 12/21/2024 Infection Onset Date Last Indicated Resolved Time ESBL 07/27/2024 10/26/2024 documented as of this encounter Care Teams Space Operations Officer Relationship Specialty Start Date End Date Linh Cook MD [address] [place] [phone] PCP - General Internal Medicine 11/05/20 documented as of this encounter
--- OUTSIDE RECORDS SUMMARY | 2024-12-27 14:00 | XMS_ITS | Encounter Summary ---
Author Organization [employer] Address [address] [place] [address] [address] [place] [address] Care Team Providers Care Turkey Cleaner Name Role Phone Linh Cook MD Primary Care Provide r Reason for Referral * Consultation (Routine) - Pending Review Specialty Diagnoses / Procedures Referred By Contac t Referred To Contact Nephrology Diagnoses Type 2 diabetes mellitus with diabetic neuropathy, with long-term current use of insulin (HCC) Hepatic cirrhosis, unspecified hepatic cirrhosis type, unspecified whether ascites present (HCC) Chronic kidney disease, stage 3a (CMS/HCC) (HCC) Chronic systolic (congestive) heart failure (HCC) Linh Cook MD [address] [place] [address] Phone: tel: fax: Referral ID Status Reason Start Date Expiration Date Visits Requested Visits Authorized [id number] Pending Review Specialty Services Required 5 12/27/2025 1 1 * Consultation (Routine) - Pending Review Specialty Diagnoses / Procedures Referred By Contac t Referred To Contact Gastroenterology Diagnoses Hepatic cirrhosis, unspecified hepatic cirrhosis type, unspecified whether ascites present (HCC) Linh Cook MD [address] [place] [address] Phone: tel: fax: Referral ID Status Reason Start Date Expiration Date Visits Requested Visits Authorized [id number] Pending Review Specialty Services Required 5 12/27/2025 1 1 Encounter Details Date Type Department Care Team (Latest Contact Info) Description 12/27/2024 2:00 PM EDT Office Visit [facility] [address] [place] [address] Linh Cook MD [address] [place] [address] Primary localized osteoarthritis of knees, bilateral (Primary Dx); Type 2 diabetes mellitus with diabetic neuropathy, with long-term current use of insulin (HCC); Severe persistent asthma, unspecified whether complicated (HCC); Hepatic cirrhosis, unspecified hepatic cirrhosis type, unspecified whether ascites present (HCC); Body mass index (BMI) 45.0-49.9, adult (HCC); Chronic kidney disease, stage 3a (CMS/HCC) (HCC); Dietary counseling; Exercise counseling; Class 3 severe obesity due to excess calories with serious comorbidity and body mass index (BMI) of 45.0 to 49.9 in adult (HCC); Chronic systolic (congestive) heart failure (HCC); Difficulty walking; Encounter for immunization Social History Tobacco Use Types Packs/Day Years [...] got money to buy more: Never True 12/12/2024 Within the past 12 months,th e food you bought just didn't last and you didn't have enough money to get more: Never True 08/2024 Transportation Answer Date Recorded In the past 12 months, has l ack of transportation kept you from medical appts, meetings, work or from getting things needed for daily living? No 12/12/2024 Utilities Answer Date Recorded In the past [...] AM EDT documented as of this encounter Last Filed Vital Signs Vital Sign Reading Time Taken Comments Blood Pressure 128/84 12/27/2024 1:56 PM EDT Pulse 86 12/27/2024 1:56 PM EDT Temperature 34.4 C (94 F) 12/27/2024 1:56 PM EDT Respiratory Rate 17 12/27/2024 1:56 PM EDT Oxygen Saturation 93% 12/27/2024 1:56 PM EDT Inhaled Oxygen Concentration - - Weight 148 kg (326 lb) 12/27/2024 1:56 PM EDT Height 180.3 cm (5' 11 ) 12/27/2024 1:56 PM EDT Body Mass Index 45.47 12/27/2024 1:56 PM EDT documented in this encounter Progress Notes * Linh Ramos MD - 12/27/2024 2:00 PM EDT SUBJECTIVE: Ramiro Hamm is a 64 y.o. year old male who presents for HDF . [facility] (12/08/24-12/11/24) Patient with PMH of DM2 with neuropathy, chronic systolic CHF, A fib, liver cirrhosis, CKD stage 3,asthma and osteomyelitis with toe amputations presented for evaluation of nonhealing right lower extremity wound. Treated with broad spectrum antibiotics with vancomycin and cefepime. Discharged on course of Augmentin and doxycycline. Patient to follow up with wound clinic and PCP. Discharged home with [facility]. Medication changes that occurred during hospitalization include: Added Augmentin 875-125 mg twice a day x 7 days Doxycycline 100 mg twice a day x 7 days Changed: none Discontinued: none Acute Concerns: Patient reports his wound is getting better he is being follow-up closely by wound clinic and also [facility]NA visits him 3 times a week for this, patient denies any fever, malaise, fatigue, nausea or any other signs of sepsis at this moment Patient reports his chronic pain on both knees and difficulties with his gait has been an obstacle for his ambulation, it is difficult for him to ambulate and he uses the scooters at the [employer] for grocery shopping, that is how he got this wound for which he was hospitalized because of malfunctioning of 1 of those scooters he is also requesting our evaluation for increased hours for [employer] Social History Social History Narrative Not on file Problem List[1] Abnormal gait Bilateral chronic knee pain Cirrhosis of liver ([facility]) (HCC) Type 2 diabetes mellitus with diabetic neuropathy, with long-term current use of insulin (HCC) Essential hypertension Hypertensive disorder Peripheral vascular disease ([facility]/HCC) Obstructive sleep apnea syndrome Primary localized osteoarthritis of knees, bilateral Primary osteoarthritis of both knees Restrictive lung disease Severe obesity (CMS/HCC) (HCC) Severe persistent asthma (HCC) Diabetes (HCC) Vascular insufficiency LUCA (acute kidney injury) Allergic rhinitis Bacteremia Chronic systolic (congestive) heart failure (HCC) Diabetic retinopathy (HCC) Difficulty in walking, not elsewhere classified Encounter for other specified surgical aftercare H/O heart bypass surgery Hepatitis C virus infection Hyperlipidemia, unspecified snf (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 of insulin (CMS/HCC) (HCC) Nonischemic congestive cardiomyopathy ([facility]) (HCC) Osteomyelitis, unspecified (HCC) Uncontrolled type 2 diabetes mellitus Encounter for preventative adult health care examination GERD (gastroesophageal reflux disease) BMI 45.0-49.9, adult ([facility]) (HCC) Diabetic polyneuropathy associated with type 2 diabetes mellitus (HCC) Pain of left middle finger Cellulitis of left upper extremity Acute gout of left elbow Colon cancer screening Acute gout of right hand Encounter for preventive care Unstable gait Chronic fatigue JANELL (obstructive sleep apnea) AICD (automatic cardioverter/defibrillator) present Child-Thurston class A liver disease score Chronic kidney disease, stage 3a (CMS/[facility]) (HCC) Acute gout of right wrist Cough Dyslipidemia Environmental allergies Incoordination Knee joint effusion Leg edema Methicillin susceptible Staphylococcus aureus infection Methicillin resistant Staphylococcus aureus infection Muscle pain Muscle weakness Need for assistance with personal care ACOSTA (dyspnea on exertion) Dyspnea Orthopnea Other cardiomyopathies (HCC) Primary gout Retention of urine RSV bronchitis Sepsis (CMS/HCC) (HCC) Septic shock (CMS/HCC) (HCC) Stable angina (CMS/HCC) Suppurative arthritis (HCC) Unsteadiness on feet Vitamin D deficiency Acute exacerbation of CHF (congestive heart failure) (HCC) Chronic congestive heart failure (HCC) Chronic diastolic heart failure (HCC) Acute kidney injury Acute nontraumatic kidney injury Chronic kidney disease, stage 2 (mild) CKD (chronic kidney disease) Allergic asthma Pain in lower limb Cellulitis of left upper limb Weakness Cirrhosis (CMS/HCC) (HCC) Type 2 diabetes mellitus (HCC) Bilateral hypertensive retinopathy DR (diabetic retinopathy) (HCC) Difficulty walking Postoperative care for cataract Gastroesophageal reflux disease without esophagitis Chronic hepatitis C without hepatic coma (HCC) HCV (hepatitis C virus) HLD (hyperlipidemia) Hyperlipidemia HTN (hypertension) Hypotension due to hypovolemia Hypotension PAD (peripheral artery disease) Family History[2] Review of Systems OBJECTIVE: Vitals: 12/27/24 1356 BP: 128/84 BP Location: Right arm Patient Position: Sitting BP Cuff Size: Adult Pulse: 86 Resp: 17 Temp: 94 ??F (34.4 ??C) TempSrc: Temporal SpO2: 93% Weight: 326 lb (148 kg) Height: 5' 11 (1.803 m) Physical Exam Follow Up: No follow-ups on file. Medications Ordered Prior to Encounter[3] Problem List Items Addressed This Visit Type 2 diabetes mellitus with diabetic neuropathy, with long-term current use of insulin ([facility]) Diabetes management ongoing with endocrinology. Difficulty with insulin pump noted. Diabetic neuropathy present. - Continue follow-up with dental floss packer. Ordered laboratory tests for cholesterol and urinalysis for diabetes monitoring. Relevant Orders POCT Glucose (Completed) POCT Hgb A1c (Completed) Referral to Nephrology Lipid Panel, Standard Albumin, Random Urine W/Creatinine Severe persistent asthma ([facility]) - Continue asthma management and follow-up with pulmonology. Cirrhosis (CMS/HCC) (HCC) Relevant Orders Referral to Gastroenterology Referral to Nephrology Chronic kidney disease, stage 3a (CMS/HCC) ([facility]) - Chronic kidney disease stage 3a. - Referred to electronic news gathering editor for renal evaluation. Ordered urinalysis for kidney function monitoring Relevant Orders Referral to Nephrology Class 3 severe obesity due to excess calories with serious comorbidity and body mass index (BMI) of45.0 to 49.9 in adult ([facility]) - BMI in the range of 45.0-49.9, severe obesity. - Dietary counseling and exercise counseling provided. Advised to reduce intake of rice and salt, use alternative seasonings such as Dash, garlic, onion, oregano, and cilantro. Chronic systolic (congestive) heart failure (HCC) - Chronic systolic heart failure with reduced cardiac function. ICD device in place. Diuretic therapy ongoing. - Continue follow-up with continuous dryout operator for heart failure management and medication optimization. Ordered laboratory tests for cholesterol. Discussed need to avoid excess salt and monitor fluid intake. Relevant Orders Referral to Nephrology Primary localized osteoarthritis of knees, bilateral - Primary - Bilateral knee osteoarthritis with pain improved after intervention. - Referred to rn case mgr; appointment scheduled for January 05, 2025, at 2:15 PM at [facility]. Evaluation for scooter for mobility assistance. Difficulty walking Prescription for scooter evaluation will be generated Other Visit Diagnoses Body mass index (BMI) 45.0-49.9, adult ([facility]) Dietary counseling Exercise counseling Encounter for immunization Relevant Orders FLU VACCINE TRIVALENT HIGH DOSE [phone] (Fluzone) 65 yrs + (Completed) [1] Patient Active Problem List Diagnosis Abnormal gait Bilateral chronic knee pain Cirrhosis of liver ([facility]/HCC) (HCC) Type 2 diabetes mellitus with diabetic neuropathy, with long-term current use of insulin ([facility]) Essential hypertension Hypertensive disorder Peripheral vascular disease ([facility]) Obstructive sleep apnea syndrome Primary localized osteoarthritis of knees, bilateral Primary osteoarthritis of both knees Restrictive lung disease Class 3 severe obesity due to excess calories with serious comorbidity and body mass index (BMI) of45.0 to 49.9 in adult ([facility]) Severe persistent asthma (HCC) Diabetes (HCC) Vascular insufficiency LUCA (acute kidney injury) Allergic rhinitis Bacteremia Chronic systolic (congestive) heart failure (HCC) Diabetic retinopathy ([facility]) Difficulty in walking, not elsewhere classified Encounter for other specified surgical aftercare H/O heart bypass surgery Hepatitis C virus infection Hyperlipidemia, unspecified roasterman (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 of insulin (CMS/HCC) (HCC) Nonischemic congestive cardiomyopathy (CMS/HCC) ([facility]) Osteomyelitis, unspecified ([facility]) Uncontrolled type 2 diabetes mellitus Encounter for preventative adult health care examination GERD (gastroesophageal reflux disease) BMI 45.0-49.9, adult (CMS/HCC) (HCC) Diabetic polyneuropathy associated with type 2 diabetes mellitus (HCC) Pain of left middle finger Cellulitis of left upper extremity Acute gout of left elbow Colon cancer screening Acute gout of right hand Encounter for preventive care Unstable gait Chronic fatigue JANELL (obstructive sleep apnea) AICD (automatic cardioverter/defibrillator) present Child-Thurston class A liver disease score Chronic kidney disease, stage 3a (CMS/HCC) (HCC) Acute gout of right wrist Cough Dyslipidemia Environmental allergies Incoordination Knee joint effusion Leg edema Methicillin susceptible Staphylococcus aureus infection Methicillin resistant Staphylococcus aureus infection Muscle pain Muscle weakness Need for assistance with personal care ACOSTA (dyspnea on exertion) Dyspnea Orthopnea Other cardiomyopathies (HCC) Primary gout Retention of urine RSV bronchitis Sepsis (CMS/HCC) (HCC) Septic shock (CMS/HCC) (HCC) Stable angina (CMS/HCC) Suppurative arthritis (HCC) Unsteadiness on feet Vitamin D deficiency Acute exacerbation of CHF (congestive heart failure) (HCC) Chronic congestive heart failure (HCC) Chronic diastolic heart failure (HCC) Acute kidney injury Acute nontraumatic kidney injury Chronic kidney disease, stage 2 (mild) CKD (chronic kidney disease) Allergic asthma Pain in lower limb Cellulitis of left upper limb Weakness Cirrhosis (CMS/HCC) (HCC) Type 2 diabetes mellitus (HCC) Bilateral hypertensive retinopathy DR (diabetic retinopathy) (HCC) Difficulty walking Postoperative care for cataract Gastroesophageal reflux disease without esophagitis Chronic hepatitis C without hepatic coma (HCC) HCV (hepatitis C virus) HLD (hyperlipidemia) Hyperlipidemia HTN (hypertension) Hypotension due to hypovolemia Hypotension PAD (peripheral artery disease) [2] No family history on file. [3] Current Outpatient Medications on File Prior to Visit Medication Sig Dispense Refill acetaminophen (Tylenol 8 Hour) 650 MG ER tablet Take 2 tablets by mouth every 8 (eight) hours. albuterol 108 (90 Base) MCG/ACT inhaler Inhale 2 puffs every 4 (four) hours if needed. allopurinol (Zyloprim) 100 MG tablet Take 1 tablet by mouth in the morning. atorvastatin (Lipitor) 40 MG tablet TAKE 1 TABLET BY MOUTH EVERY MORNING 30 tablet 1 BD Insulin Syringe U-500 31G X 6MM 0.5 ML misc Use as directed. bumetanide (Bumex) 2 MG tablet Take 1 tablet by mouth Once per day. colchicine 0.6 MG tablet ON DAY ONE TAKE 2 CAPSULES THEN AFTER ONE HOUR ONE CAPSULE AND THEN ONE CAPSULE TWICE DAILY UNTIL FLARE RESOLVES 30 tablet 0 Continuous Blood Gluc Sensor (FreeStyle Home 2 Sensor) [facility] 1 each on the skin 3 times daily. empagliflozin (Jardiance) 10 MG Take 1 tablet (10 mg) by mouth in the morning. 30 tablet 2 Entresto 49-51 MG tablet Take 1 tablet by mouth 2 times daily. 60 tablet 0 FREESTYLE LITE test strip Use as directed to test blood sugars gabapentin (Neurontin) 800 MG tablet TAKE 1 TABLET (800 MG) BY MOUTH 3 TIMES DAILY. 90 tablet 10 HumuLIN R 500 UNIT/ML CONCENTRATED injection before breakfast, before lunch, and before evening meal. 100- units prior to breakfast, 80 units pre lunch and 40 units pre lunch Mounjaro 7.5 MG/0.5ML solution auto-injector Inject 7.5 mg under the skin every 7 (seven) days. omeprazole (PriLOSEC) [address] capsule Take 1 capsule (40 mg) by mouth before breakfast. Do not crush or chew.TAKE 1 CAPSULE (40 MG) BY MOUTH IN THE MORNING. 30 capsule 1 oxyCODONE (Roxicodone) 5 MG immediate release tablet Take 1 tablet (5 mg) by mouth every 8 (eight) hours if needed for severe pain. 15 tablet 0 spironolactone (Aldactone) 25 MG tablet Take 1 tablet by mouth Once per day. (Patient not taking: Reported on 10/11/2024) Toprol XL 50 MG 24 hr tablet Take 1 tablet by mouth Once per day. Xarelto 20 MG tablet Take 20 mg by mouth 1 (one) time each day. Xolair 150 MG/ML injection Inject 375 mg under the skin every 14 (fourteen) days. Xolair 75 MG/0.5ML injection Inject 375 mg under the skin every 14 (fourteen) days. [DISCONTINUED] cyanocobalamin (Vitamin B-12) 1000 MCG tablet Take 1 tablet by mouth Once per day. [DISCONTINUED] insulin lispro (HumaLOG) 100 UNIT/ML injection Inject 19 to 34 units subcutaneous three times a day before meals according to sliding scale comments [DISCONTINUED] Lantus SoloStar 100 UNIT/ML pen Inject 50 Units under the skin Once per day. [DISCONTINUED] Mounjaro 2.5 MG/0.5ML solution auto-injector Inject 2.5 mg under the skin every 7 (seven) days. [DISCONTINUED] sennosides (Senokot) 8.6 MG tablet Take 1 tablet by mouth at bedtime. No current facility-administered medications on file prior to visit. documented in this encounter Miscellaneous Notes * Assessment & Plan Note - Linh Ramos MD - 12/27/2024 3:15 PM EDT Associated Problem(s): Primary localized osteoarthritis of knees, bilateral - Bilateral knee osteoarthritis with pain improved after intervention. - Referred to rn case mgr; appointment scheduled for January 05, 2025, at 2:15 PM at [facility]. Evaluation for scooter for mobility assistance. * Assessment & Plan Note - Linh Ramos MD - 12/27/2024 3:14 PM EDT Associated Problem(s): Chronic systolic (congestive) heart failure (HCC) - Chronic systolic heart failure with reduced cardiac function. ICD device in place. Diuretic therapy ongoing. - Continue follow-up with continuous dryout operator for heart failure management and medication optimization. Ordered laboratory tests for cholesterol. Discussed need to avoid excess salt and monitor fluid intake. * Assessment & Plan Note - Linh Ramos MD - 12/27/2024 3:14 PM EDT Associated Problem(s): Class 3 severe obesity due to excess calories with serious comorbidity and body mass index (BMI) of 45.0 to 49.9 in adult (HCC) - BMI in the range of 45.0-49.9, severe obesity. - Dietary counseling and exercise counseling provided. Advised to reduce intake of rice and salt, use alternative seasonings such as Dash, garlic, onion, oregano, and cilantro. * Assessment & Plan Note - Linh Ramos MD - 12/27/2024 3:13 PM EDT Associated Problem(s): Chronic kidney disease, stage 3a (CMS/HCC) (HCC) - Chronic kidney disease stage 3a. - Referred to electronic news gathering editor for renal evaluation. Ordered urinalysis for kidney function monitoring * Assessment & Plan Note - Linh Ramos MD - 12/27/2024 3:12 PM EDT Associated Problem(s): Difficulty walking Prescription for scooter evaluation will be generated * Assessment & Plan Note - Linh Ramos MD - 12/27/2024 3:12 PM EDT Associated Problem(s): Severe persistent asthma (HCC) - Continue asthma management and follow-up with pulmonology. * Assessment & Plan Note - Linh Ramos MD - 12/27/2024 3:11 PM EDT Associated Problem(s): Type 2 diabetes mellitus with diabetic neuropathy, with long-term current use of insulin (HCC) Diabetes management ongoing with endocrinology. Difficulty with insulin pump noted. Diabetic neuropathy present. - Continue follow-up with dental floss packer. Ordered laboratory tests for cholesterol and urinalysis for diabetes monitoring. documented in this encounter Plan of Treatment Upcoming Encounters Date Type Department Care Team (Late st Contact Info) Description 02/15/2025 10:45 AM EST Office Visit [facility] [address] [place] [address] Linh Cook MD [address] [place] [address] Scheduled Referrals Name Type Priority Associated Diagnoses Order Schedule Referral to Gastroenterology Outpatient Referral Routine Hepatic cirrhosis, unspecified hepatic cirrhosis type, unspecified whether ascites present (HCC) Expected: 12/27/2024 (Approximate), Expires: 12/27/2025 Referral to Nephrology Outpatient Referral Routine Type 2 diabetes mellitus with diabetic neuropathy, with long-term current use of insulin (HCC) Hepatic cirrhosis, unspecified hepatic cirrhosis type, unspecified whether ascites present (HCC) Chronic kidney disease, stage 3a (CMS/HCC) (HCC) Chronic systolic (congestive) heart failure (HCC) Expected: 12/27/2024 (Approximate), Expires: 12/27/2025 documented as of this encounter Procedures Procedure Name Priority Date/Time Associated Diagnosis Comments ALBUMIN, RANDOM URINE W/CREATININE Routine 12/27/2024 3:29 PM EDT Type 2 diabetes mellitus with diabetic neuropathy, with long-term current use of insulin (HCC) LIPID PANEL, STANDARD Routine 12/27/2024 3:29 PM EDT Type 2 diabetes mellitus with diabetic neuropathy, with long-term current use of insulin ([facility]) POCT GLYCATED HEMOGLOBIN, TOTAL Routine 12/27/2024 1:58 PM EDT Type 2 diabetes mellitus with diabetic neuropathy, with long-term current use of insulin ([facility]) POCT GLUCOSE Routine 12/27/2024 1:58 PM EDT Type 2 diabetes mellitus with diabetic neuropathy, with long-term current use of insulin ([facility]) documented in this encounter Results * Albumin, Random Urine W/Creatinine (12/27/2024 3:29 PM EDT) Creatinine, Urine 25.62 mg/dL [facility] Microalbumin Urine <5.0 mg/L [facility] Microalbum Creatinine Ratio Ur TNP <30 ug/mg cr [facility] Comment:Unable to calculate albumin/creatinine ratio due to lowmicroalbumin or creatinine result. Urine (Urine, Random) 12/27/2024 3:29 PM EDT 12/27/2024 4:02 PM EDT us Linh Ramos MD LAB URINE ORDERABLES Final Result Performing Organization Address City/[facility]/ZIP Co de Phone Number [facility] [address] [place] [address] [phone] * (ABNORMAL) Lipid Panel, Standard (12/27/2024 3:29 PM EDT) Triglycerides 297(H) <150 mg/dL [facility] Comment:Desirable Triglyceri de: less than 150 mg/dLBorderline High Triglyceride 150-199 mg/dLHigh Triglyceride: 200-499 mg/dLVery High Triglyceride: greater than or equal to 5OO mg/dL Cholesterol 239(H) <200 mg/dL [facility] Comment:Desirable Cholestero l: less than 200 mg/dLBorderline High Cholesterol: 200-239 mg/dLHigh Cholesterol: greater than 239 mg/dL LDL Cholesterol Calculated 137(H) <100 mg/dL [facility] Comment:Desirable LDL: less than 100 mg/dLNear Optimal/Above Optimal LDL: 110- 129 mg/dLBorderline High LDL: 130-159 mg/dLHigh LDL: 160-189 mg/dLVery High LDL: greater than or equal to 190 mg/dL HDL Cholesterol 43 >40 mg/dL [facility] Comment:Desirable HDL: great er than 40 mg/dL Note: This HDL assay may give artificially low results in patients with liver disease. Blood Venous blood specimen / Unknown 12/27/2024 3:29 PM EDT 12/27/2024 5:03 PM EDT us Linh Ramos MD LAB BLOOD ORDERABLES Final Result Performing Organization Address City/[facility]/ZIP Co de Phone Number [facility] [address] [place] [address] [phone] * (ABNORMAL) POCT Hgb A1c (12/27/2024 1:58 PM EDT) Hemoglobin A1C 9.9(A) 4.0 - 5.7 % [employer] Lot # [id number] Lot# Expiration Date 51,227 Blood 12/27/2024 1:58 PM EDT Result [facility] Linh Ramos MD POINT OF CARE TEST EN TER/EDIT ORDERABLES Final Result * (ABNORMAL) POCT Glucose (12/27/2024 1:58 PM EDT) Glucose Blood, POC 339(A) 60 - 200 mg/dL [employer] Lot # [id number] Lot# Expiration Date 31,126 Blood Capillary blood specimen / Unknown 12/27/2024 1:58 PM EDT Result [facility] Linh Ramos MD POINT OF CARE TEST EN TER/EDIT ORDERABLES Final Result documented in this encounter Visit Diagnoses Diagnosis Primary localized osteoarthritis of knees, bilateral- Primary Type 2 diabetes mellitus with diabetic neuropathy, with long-term current use of insulin (HCC) Severe persistent asthma, unspecified whether complicated (HCC) Hepatic cirrhosis, unspecified hepatic cirrhosis type, unspecified whether ascites present (HCC) Body mass index (BMI) 45.0-49.9, adult (HCC) Chronic kidney disease, stage 3a (CMS/HCC) (HCC) Dietary counseling Dietary surveillance and counseling Exercise counseling Class 3 severe obesity due to excess calories with serious comorbidity and body mass index (BMI) of 45.0 to 49.9 in adult (HCC) Chronic systolic (congestive) heart failure (HCC) Difficulty walking Difficulty in walking Encounter for immunization documented in this encounter Additional Health Concerns Assessment Noted Time PHQ-9 Depression Total Score: 13 025 1:43 PM EDT documented as of this encounter Care Teams Turkey Cleaner Relationship Specialty Start Date End Date Linh Cook MD [address] [place] [address] PCP - General Family Medicine 06/22/18 [facility] 06/10/23 documented as of this encounter
[2024-12-27 17:19] LABS: Anion Gap 14 (12-20); Blood Urea Nitrogen 65 mg/dL (9-16); Calcium 9.2 mg/dL (8.4-10.2); Carbon Dioxide 29 mmol/L (22-29); Chloride 99 mmol/L (96-108); Cholesterol 237 mg/dL (<200); Estimated Glomerular Filt Rate 48; HDL Cholesterol 42 mg/dL (>40); Potassium 3.8 mmol/L (3.3-5.1); Sodium 138 mmol/L (135-145); Triglycerides 294 mg/dL (<150)
[2024-12-27 17:21] LABS: Cholesterol 239 mg/dL (<200); HDL Cholesterol 43 mg/dL (>40); Triglycerides 297 mg/dL (<150)
--- OUTSIDE RECORDS SUMMARY | 2024-12-27 20:29 | XMS_ITS | Encounter Summary ---
Author Organization [employer] Address [address] [place] [address] Care Team Providers Care Counter Former Name Role Phone iLnh Cook MD Primary Care Provide r Encounter Details Date Type Department Care Team (Late st Contact Info) Description 07/25/2024 Lab Requisition [facility] - Main Lab 299 [facility] [place] [address] Reji Sterling MD [address] [place] [address] [address] [place], [phone] Acute kidney failure, unspecified (CMS/HCC V24); [...] 5:45 AM EDT Acute kidney failure, unspecified ([facility] V24) Cellulitis of left upper limb BASIC METABOLIC PANEL Routine 07/25/2024 5:45 AM EDT Acute kidney failure, unspecified ([facility] V24) Cellulitis of left upper limb documented in this encounter Results * (ABNORMAL) Basic metabolic panel (07/25/2024 5:45 AM EDT) Sodium 134 133 - 145 mmol/L LAB CHEMISTRY METHOD 07/25/2024 12:52 PM [facility] Potassium 4.3 3.5 - 5.5 mmol/L LAB CHEMISTRY METHOD 07/25/2024 12:52 PM [facility] Chloride 97 96 - 110 mmol/L LAB CHEMISTRY METHOD 07/25/2024 12:52 PM [facility] CO2 30 21 - 32 mmol/L LAB CHEMISTRY METHOD 07/25/2024 12:52 PM [facility] Anion Gap 7 3 - 11 LAB CHEMISTRY METHOD 07/25/2024 12:52 PM [facility] Glucose 203(H) 70 - 100 mg/dL LAB CHEMISTRY METHOD 07/25/2024 12:52 PM EDT [facility] BUN 20 5 - 25 mg/dL LAB CHEMISTRY METHOD 07/25/2024 12:52 PM EDT [facility] Creatinine 1.07 0.70 - 1.30 mg/dL LAB CHEMISTRY METHOD 07/25/2024 12:52 PM EDT [facility] eGFR 77 >=60 mL/min/1. 73m2 LAB CHEMISTRY METHOD 07/25/2024 12:52 PM EDT [facility] Comment:Calculation based on the Chronic Kidney Disease Epidemiology Collaboration (CKD-EPI) equation refit without adjustment for race. BUN/Creatinine Ratio 18.7 LAB CHEMISTRY METHOD 07/25/2024 12:52 PM EDT [facility] Calcium 8.3(L) 8.5 - 10.5 mg/dL LAB CHEMISTRY METHOD 07/25/2024 12:52 PM EDT [facility] Blood Venous blood specimen / Unknown Venipuncture / Unknown 07/25/2024 5:45 AM EDT 07/25/2024 10:53 AM EDT us Reji Sterling MD LAB BLOOD ORDERABLES Final Resul t [facility] [address] [place] [address], * (ABNORMAL) Complete blood count (07/25/2024 5:45 AM EDT) WBC 11.4(H) 4.8 - 10.8 K/mcL LAB HEMETOLOGY METHOD 07/25/2024 11:54 AM EDT [facility] RBC 4.70 4.50 - 5.50 M/mcL LAB HEMETOLOGY METHOD 07/25/2024 11:54 AM EDT [facility] Hemoglobin 12.9(L) 13.5 - 17.5 g/dL LAB HEMETOLOGY METHOD 07/25/2024 11:54 AM EDT [facility] Hematocrit 43.5 42.0 - 54.0 % LAB HEMETOLOGY METHOD 07/25/2024 11:54 AM EDT [facility] MCV 93.1 79.0 - 98.0 FL LAB HEMETOLOGY METHOD 07/25/2024 11:54 AM EDT [facility] MCH 27.6 27.0 - 32.0 pcg LAB HEMETOLOGY METHOD 07/25/2024 11:54 AM EDT [facility] MCHC 29.7(L) 32.0 - 37.0 g/dL LAB HEMETOLOGY METHOD 07/25/2024 11:54 AM EDT [facility] RDW 15.6(H) 11.0 - 15.0 % LAB HEMETOLOGY METHOD 07/25/2024 11:54 AM EDT [facility] Platelets 294 130 - 400 K/mcL LAB HEMETOLOGY METHOD 07/25/2024 11:54 AM EDT [facility] MPV 9.8 7.0 - 11.0 FL LAB HEMETOLOGY METHOD 07/25/2024 11:54 AM EDT [facility] NRBC 0.0 <1.0 % LAB HEMETOLOGY METHOD 07/25/2024 11:54 AM EDT [facility] NRBC Absolute 0.00 <0.10 K/mcL LAB HEMETOLOGY METHOD 07/25/2024 11:54 AM EDT [facility] Blood Venous blood specimen / Unknown Venipuncture / Unknown 07/25/2024 5:45 AM EDT 07/25/2024 10:53 AM EDT us Reji Sterling MD LAB BLOOD ORDERABLES Final Resul t [facility] [address] [place], [place] [address] [phone] documented in this encounter Visit Diagnoses Diagnosis Acute kidney failure, unspecified (CMS/[facility] V24) Acute kidney failure, unspecified Cellulitis of left upper limb documented in this encounter Additional Health Concerns Infection Onset Date Last Indicated Resolved Time ESBL 07/27/2024 10/26/2024 MRSA Comment:Facility does not currently isolate for MRSA. 12/08/2024 12/08/2024 12/09/2024 9:11 AM E DT Respiratory Rule-Out 12/09/2024 12/09/2024 025 10:27 AM EDT COVID-19 Rule-Out 12/09/2024 12/09/2024 12/09/2024 10:27 AM EDT documented as of this encounter Care Teams Counter Former Relationship Specialty Start Date End Date Linh Cook MD [address] [phone] PCP - General Internal Medicine 11/05/20 documented as of this encounter
--- OUTSIDE RECORDS SUMMARY | 2024-12-27 20:29 | XMS_ITS | Encounter Summary ---
Author Organization [employer] Address [address] [place] [address] Care Team Providers Care Reception Specialist Name Role Phone Linh Cook MD Primary Care Provide r Encounter Details Date Type Department Care Team (Latest Contact Info) Description 09/13/[address] [facility] - Main Lab 299 [facility] [place] [phone] My Oconnor MD [address] [place] [id number] Type 2 diabetes mellitus without complications (CMS/HCC [...] 2 diabetes mellitus without complications (CMS/HCC V24, CMS/[facility] V28) Weakness Heart failure, unspecified (CMS/HCC V24, [...] LAB CHEMISTRY METHOD 09/13/2024 9:34 AM EDT [facility] Chol/HDL Ratio 2.9 0.0 - 4.4 LAB CHEMISTRY METHOD 09/13/2024 9:34 AM EDT [facility] Blood Venous blood specimen / Unknown Venipuncture / Unknown 09/13/2024 4:39 AM EDT 09/13/2024 8:20 AM EDT us My Oconnor MD LAB BLOOD ORDERABLES Final Resu lt [facility] [address] [place] [address], [place] [phone] * Vitamin B12 (09/13/2024 4:39 AM EDT) Vitamin B-12 668 250 - 900 pcg/mL LAB CHEMISTRY METHOD 09/13/2024 9:56 AM EDT [facility] Blood Venous blood specimen / Unknown Venipuncture / Unknown 09/13/2024 4:39 AM EDT 09/13/2024 8:20 AM EDT us My Oconnor MD LAB BLOOD ORDERABLES Final Resu lt [facility] [address] [place] [address], [place] [phone] * Folate (09/13/2024 4:39 AM EDT) Folate 7.6 2.8 - 17.0 ng/ml LAB CHEMISTRY METHOD 09/13/2024 9:56 AM EDT [facility] Blood Venous blood specimen / Unknown Venipuncture / Unknown 09/13/2024 4:39 AM EDT 09/13/2024 8:20 AM EDT us My Oconnor MD LAB BLOOD ORDERABLES Final Resu lt Performing Organization Address City/Va Hospital/ZIP Co de Phone Number [facility] [address] [place] [address], [place] [phone] * (ABNORMAL) Hemoglobin A1c (09/13/2024 4:39 AM EDT) Hemoglobin A1C 10.0(H) <6.5 % LAB CHEMISTRY METHOD 09/13/2024 2:10 PM EDT [facility] Mean Bld Glu Estim. 240 mg/dL LAB CHEMISTRY METHOD 09/13/2024 2:10 PM EDT [facility] Blood Venous blood specimen / Unknown Venipuncture / Unknown 09/13/2024 4:39 AM EDT 09/13/2024 8:20 AM EDT us My Oconnor MD LAB BLOOD ORDERABLES Final Resu lt Performing Organization Address City/[facility] Hospital/ZIP Co de Phone Number [facility] [address] [place] [address], [place] [phone] * (ABNORMAL) Vitamin D 25 hydroxy (09/13/2024 4:39 AM EDT) Pathologist [facility] Vit D, 25-Hydroxy 25.3(L) 30.0 - 80.0 ng/mL LAB CHEMISTRY METHOD 09/13/2024 10:32 AM EDT [facility] Blood Venous blood specimen / Unknown Venipuncture / Unknown 09/13/2024 4:39 AM EDT 09/13/2024 8:20 AM EDT us My Oconnor MD LAB BLOOD ORDERABLES Final Resu lt [facility] [address] [place] [address], [place] [phone] * Thyroid stimulating hormone (09/13/2024 4:39 AM EDT) [facility] TSH 3.20 0.40 - 4.00 mcIU/mL LAB CHEMISTRY METHOD 09/13/2024 10:32 AM [facility] Blood Venous blood specimen / Unknown Venipuncture / Unknown 09/13/2024 4:39 AM EDT 09/13/2024 8:20 AM EDT us My Oconnor MD LAB BLOOD ORDERABLES Final Resu lt [facility] [address] [place] [address], * (ABNORMAL) Comprehensive metabolic panel (09/13/2024 4:39 AM EDT) [facility] Sodium 135 133 - 145 mmol/L [...] MD LAB BLOOD ORDERABLES Final Resu lt [facility] [address] [place] [address], * (ABNORMAL) Complete blood count (09/13/2024 4:39 AM EDT) [facility] WBC 8.2 4.8 - 10.8 K/mcL [...] LAB HEMETOLOGY METHOD 09/13/2024 9:10 AM EDT [facility] Blood Venous blood specimen / Unknown Venipuncture / Unknown 09/13/2024 4:39 AM EDT 09/13/2024 8:20 AM EDT us My Oconnor MD LAB BLOOD ORDERABLES Final Resu lt [facility] [address] [place] [address], documented in this encounter Visit Diagnoses Diagnosis Type 2 diabetes mellitus without complications (CMS/[facility] V24, CMS/[facility] V28) Weakness Other malaise and fatigue Heart failure, unspecified (CMS/[facility] V24, [facility] V28) Heart failure, unspecified Vitamin D deficiency, unspecified documented in this encounter Additional Health Concerns Infection Onset Date Last Indicated Resolved Time ESBL 07/27/2024 10/26/2024 MRSA Comment:Facility does not currently isolate for MRSA. 12/08/2024 12/08/2024 12/09/2024 9:11 AM E DT Respiratory Rule-Out 12/09/2024 12/09/2024 025 10:27 AM EDT COVID-19 Rule-Out 12/09/2024 12/09/2024 12/09/2024 10:27 AM EDT documented as of this encounter Care Teams Reception Specialist Relationship Specialty Start Date End Date Linh Cook MD [address] [place] [phone] PCP - General Internal Medicine 11/05/20 documented as of this encounter
--- OUTSIDE RECORDS SUMMARY | 2024-12-27 20:29 | XMS_ITS | Encounter Summary ---
Author Organization [email or web address] Address [address] [place] [address] Care Team Providers Care Patcher Wood Welder Name Role Phone Linh Cook MD Primary Care Provide r Encounter Details Date Type Department Care Team (Late st Contact Info) Description 08/01/2024 Lab Requisition [facility] - Main Lab 299 [facility] [place] [address] Reji Sterling MD [address] [place] [address] 204 [place], [phone] Hyperlipidemia, unspecified; Acute kidney failure, unspecified [...] Basic metabolic panel (08/02/2024 6:21 AM EDT) [facility] Sodium 139 133 - 145 mmol/L LAB CHEMISTRY METHOD 08/02/2024 12:10 PM [facility] Potassium 4.5 3.5 - 5.5 mmol/L LAB CHEMISTRY METHOD 08/02/2024 12:10 PM [facility] Chloride 101 96 - 110 mmol/L LAB CHEMISTRY METHOD 08/02/2024 12:10 PM [facility] CO2 32 21 - 32 mmol/L LAB CHEMISTRY METHOD 08/02/2024 12:10 PM EDT [facility] Anion Gap 6 3 - 11 LAB CHEMISTRY METHOD 08/02/2024 12:10 PM T [facility] Glucose 109(H) 70 - 100 mg/dL LAB CHEMISTRY METHOD 08/02/2024 12:10 PM [facility] BUN 18 5 - 25 mg/dL LAB CHEMISTRY METHOD 08/02/2024 12:10 PM EDT [facility] Creatinine 0.73 0.70 - 1.30 mg/dL LAB CHEMISTRY METHOD 08/02/2024 12:10 PM [facility] eGFR 100 >=60 mL/min/1. 73m2 LAB CHEMISTRY METHOD 08/02/2024 12:10 PM T [facility] Comment:Calculation based on the Chronic Kidney Disease Epidemiology Collaboration (CKD-EPI) equation refit without adjustment for race. BUN/Creatinine Ratio 24.7 LAB CHEMISTRY METHOD 08/02/2024 12:10 PM [facility] Calcium 8.7 8.5 - 10.5 mg/dL LAB CHEMISTRY METHOD 08/02/2024 12:10 PM [facility] Blood Venous blood specimen / Unknown Venipuncture / Unknown 08/02/2024 6:21 AM EDT 08/02/2024 10:17 AM EDT us Reji Sterling MD LAB BLOOD ORDERABLES Final Resul t [facility] [address] [place] [address], * (ABNORMAL) Complete blood count (08/02/2024 6:21 AM EDT) WBC 8.8 4.8 - 10.8 K/mcL LAB HEMETOLOGY METHOD 08/02/2024 11:11 AM EDT [facility] RBC 5.10 4.50 - 5.50 M/mcL LAB HEMETOLOGY METHOD 08/02/2024 11:11 AM [facility] Hemoglobin 14.1 13.5 - 17.5 g/dL LAB HEMETOLOGY METHOD 08/02/2024 11:11 AM [facility] Hematocrit 48.3 42.0 - 54.0 % LAB HEMETOLOGY METHOD 08/02/2024 11:11 AM [facility] MCV 94.3 79.0 - 98.0 FL LAB HEMETOLOGY METHOD 08/02/2024 11:11 AM [facility] MCH 27.5 27.0 - 32.0 pcg LAB HEMETOLOGY METHOD 08/02/2024 11:11 AM [facility] MCHC 29.2(L) 32.0 - 37.0 g/dL LAB HEMETOLOGY METHOD 08/02/2024 11:11 AM [facility] RDW 15.5(H) 11.0 - 15.0 % LAB HEMETOLOGY METHOD 08/02/2024 11:11 AM [facility] Platelets 584(H) 130 - 400 K/mcL LAB HEMETOLOGY METHOD 08/02/2024 11:11 AM [facility] MPV 8.9 7.0 - 11.0 FL LAB HEMETOLOGY METHOD 08/02/2024 11:11 AM [facility] NRBC 0.0 <1.0 % LAB HEMETOLOGY METHOD 08/02/2024 11:11 AM [facility] NRBC Absolute 0.00 <0.10 K/mcL LAB HEMETOLOGY METHOD 08/02/2024 11:11 AM [facility] Blood Venous blood specimen / Unknown Venipuncture / Unknown 08/02/2024 6:21 AM EDT 08/02/2024 10:17 AM EDT Reji Sterling MD LAB BLOOD ORDERABLES Final Resul t Performing Organization Address City/[facility]/ZIP Co de Phone Number [facility] [address] [place] [address], [place] [phone] * Prealbumin (08/02/2024 6:21 AM EDT) Prealbumin 20 18 - 45 mg/dL LAB CHEMISTRY METHOD 08/02/2024 12:11 PM EDT [facility] Blood Venous blood specimen / Unknown Venipuncture / Unknown 08/02/2024 6:21 AM EDT 08/02/2024 10:17 AM EDT Reji Sterling MD LAB BLOOD ORDERABLES Final Resul t Performing Organization Address [facility]/ZIP Co de Phone Number [facility] [address] [place] [address], [place] [phone] documented in this encounter Visit Diagnoses Diagnosis [...] documented as of this encounter Care Teams Patcher Wood Welder Relationship Specialty Start Date End Date Linh Cook MD [address] [place] [phone] PCP - General Internal Medicine 11/05/20 documented as of this encounter
--- OUTSIDE RECORDS SUMMARY | 2024-12-27 20:29 | XMS_ITS | Encounter Summary ---
Author Organization [employer] Address [address] [place] [address] Care Team Providers Care Button Maker And Installer Name Role Phone Linh Cook MD Primary Care Provide r Encounter Details Date Type Department Care Team (Late st Contact Info) Description 07/09/2024 Lab Requisition [facility] - Main Lab 299 [facility] [place] [address] Reji Sterling MD [address] [place] [address] [address] [place], [phone] Acute kidney failure, unspecified (CMS/HCC V24); [...] 6:13 AM EDT Acute kidney failure, unspecified ([facility] V24) Cellulitis of left upper limb BASIC METABOLIC PANEL Routine 07/11/2024 6:13 AM EDT Acute kidney failure, unspecified ([facility] V24) Cellulitis of left upper limb documented in this encounter Results * (ABNORMAL) Basic metabolic panel (07/11/2024 6:13 AM EDT) Sodium 137 133 - 145 mmol/L LAB CHEMISTRY METHOD 07/11/2024 8:28 AM [facility] Potassium 5.0 3.5 - 5.5 mmol/L LAB CHEMISTRY METHOD 07/11/2024 8:28 AM [facility] Chloride 103 96 - 110 mmol/L LAB CHEMISTRY METHOD 07/11/2024 8:28 AM [facility] CO2 28 21 - 32 mmol/L LAB CHEMISTRY METHOD 07/11/2024 8:28 AM [facility] Anion Gap 6 3 - 11 LAB CHEMISTRY METHOD 07/11/2024 8:28 AM [facility] Glucose 183(H) 70 - 100 mg/dL LAB CHEMISTRY METHOD 07/11/2024 8:28 AM EDT [facility] BUN 26(H) 5 - 25 mg/dL LAB CHEMISTRY METHOD 07/11/2024 8:28 AM EDT [facility] Creatinine 1.07 0.70 - 1.30 mg/dL LAB CHEMISTRY METHOD 07/11/2024 8:28 AM EDT [facility] eGFR 77 >=60 mL/min/1. 73m2 LAB CHEMISTRY METHOD 07/11/2024 8:28 AM EDT [facility] Comment:Calculation based on the Chronic Kidney Disease Epidemiology Collaboration (CKD-EPI) equation refit without adjustment for race. BUN/Creatinine Ratio 24.3 LAB CHEMISTRY METHOD 07/11/2024 8:28 AM T [facility] Calcium 8.6 8.5 - 10.5 mg/dL LAB CHEMISTRY METHOD 07/11/2024 8:28 AM T [facility] Blood Venous blood specimen / Unknown Venipuncture / Unknown 07/11/2024 6:13 AM EDT 07/11/2024 7:36 AM EDT us Reji Sterling MD LAB BLOOD ORDERABLES Final Resul t [facility] [address] [place] [address], * (ABNORMAL) Complete blood count (07/11/2024 6:13 AM EDT) WBC 5.4 4.8 - 10.8 K/mcL LAB HEMETOLOGY METHOD 07/11/2024 8:00 AM EDT [facility] RBC 4.30(L) 4.50 - 5.50 M/mcL LAB HEMETOLOGY METHOD 07/11/2024 8:00 AM EDT [facility] Hemoglobin 12.2(L) 13.5 - 17.5 g/dL LAB HEMETOLOGY METHOD 07/11/2024 8:00 AM EDT [facility] Hematocrit 40.9(L) 42.0 - 54.0 % LAB HEMETOLOGY METHOD 07/11/2024 8:00 AM EDT [facility] MCV 94.7 79.0 - 98.0 FL LAB HEMETOLOGY METHOD 07/11/2024 8:00 AM EDT [facility] MCH 28.2 27.0 - 32.0 pcg LAB HEMETOLOGY METHOD 07/11/2024 8:00 AM EDT [facility] MCHC 29.8(L) 32.0 - 37.0 g/dL LAB HEMETOLOGY METHOD 07/11/2024 8:00 AM [facility] RDW 14.3 11.0 - 15.0 % LAB HEMETOLOGY METHOD 07/11/2024 8:00 AM EDT [facility] Platelets 430(H) 130 - 400 K/mcL LAB HEMETOLOGY METHOD 07/11/2024 8:00 AM EDT [facility] MPV 9.0 7.0 - 11.0 FL LAB HEMETOLOGY METHOD 07/11/2024 8:00 AM [facility] NRBC 0.0 <1.0 % LAB HEMETOLOGY METHOD 07/11/2024 8:00 AM EDT [facility] NRBC Absolute 0.00 <0.10 K/mcL LAB HEMETOLOGY METHOD 07/11/2024 8:00 AM [facility] Blood Venous blood specimen / Unknown Venipuncture / Unknown 07/11/2024 6:13 AM EDT 07/11/2024 7:36 AM EDT us Reji Sterling MD LAB BLOOD ORDERABLES Final Resul t [facility] [address] [place] [address], [place] [phone] documented in this encounter Visit Diagnoses Diagnosis Acute kidney failure, unspecified (CMS/[facility] V24) Acute kidney failure, unspecified Cellulitis [...] documented as of this encounter Care Teams Button Maker And Installer Relationship Specialty Start Date End Date Linh Cook MD [address] [phone] PCP - General Internal Medicine 11/05/20 documented as of this encounter
--- OUTSIDE RECORDS SUMMARY | 2024-12-27 20:29 | XMS_ITS | Encounter Summary ---
Author Organization [employer] Address [address] [place] [address] Care Team Providers Care Reliability Technician Name Role Phone Linh Cook MD Primary Care Provide r Encounter Details Date Type Department Care Team (Late st Contact Info) Description 07/08/2024 Lab Requisition [facility] - Main Lab 299 [facility] [place] [address] Reji Sterling MD [address] [place] [address] 204 [place], [address] Heart failure, unspecified (CMS/HCC V24, CMS/HCC [...] 07/08/2024 5:15 AM EDT Heart failure, unspecified ([facility] V24, [facility] V28) documented in this encounter Results * (ABNORMAL) Complete blood count (07/08/2024 5:15 AM EDT) [facility] WBC 7.9 4.8 - 10.8 K/mcL LAB HEMETOLOGY METHOD 07/08/2024 10:49 AM [facility] RBC 4.20(L) 4.50 - 5.50 M/mcL LAB HEMETOLOGY METHOD 07/08/2024 10:49 AM [facility] Hemoglobin 12.0(L) 13.5 - 17.5 g/dL LAB HEMETOLOGY METHOD 07/08/2024 10:49 AM [facility] Hematocrit 39.7(L) 42.0 - 54.0 % LAB HEMETOLOGY METHOD 07/08/2024 10:49 AM [facility] MCV 95.0 79.0 - 98.0 FL LAB HEMETOLOGY METHOD 07/08/2024 10:49 AM [facility] MCH 28.7 27.0 - 32.0 pcg LAB HEMETOLOGY METHOD 07/08/2024 10:49 AM EDT [facility] MCHC 30.2(L) 32.0 - 37.0 g/dL LAB HEMETOLOGY METHOD 07/08/2024 10:49 AM EDT [facility] RDW 14.4 11.0 - 15.0 % LAB HEMETOLOGY METHOD 07/08/2024 10:49 AM EDT [facility] Platelets 452(H) 130 - 400 K/mcL LAB HEMETOLOGY METHOD 07/08/2024 10:49 AM EDT [facility] MPV 9.2 7.0 - 11.0 FL LAB HEMETOLOGY METHOD 07/08/2024 10:49 AM EDT [facility] NRBC 0.0 <1.0 % LAB HEMETOLOGY METHOD 07/08/2024 10:49 AM EDT [facility] NRBC Absolute 0.00 <0.10 K/mcL LAB HEMETOLOGY METHOD 07/08/2024 10:49 AM EDT [facility] Blood Venous blood specimen / Unknown Venipuncture / Unknown 07/08/2024 5:15 AM EDT 07/08/2024 10:13 AM EDT us Reji Sterling MD LAB BLOOD ORDERABLES Final Resul t [facility] [address] [place] [address], documented in this encounter Visit Diagnoses Diagnosis [...] documented as of this encounter Care Teams Reliability Technician Relationship Specialty Start Date End Date Linh Cook MD [address] [phone] PCP - General Internal Medicine 11/05/20 documented as of this encounter
--- OUTSIDE RECORDS SUMMARY | 2024-12-27 20:29 | XMS_ITS | Encounter Summary ---
Author Organization [employer] Address [address] [place] [address] Care Team Providers Care Computer Terminal Operator Name Role Phone Linh Cook MD Primary Care Provide r Encounter Details Date Type Department Care Team (Late st Contact Info) Description 08/26/2024 Lab Requisition [facility] - Main Lab 299 [facility] [place] [address] Reji Sterling MD [address] [place] [address] 204 [place], [address] Type 2 diabetes mellitus without complications [...] EDT Type 2 diabetes mellitus without complications ([facility] V24, [facility] V28) COMPREHENSIVE METABOLIC PANEL Routine 08/29/2024 5:49 AM EDT Type 2 diabetes mellitus without complications ([facility] V24, [facility] V28) documented in this encounter Results * (ABNORMAL) Comprehensive metabolic panel (08/29/2024 5:49 AM EDT) Sodium 135 133 - 145 mmol/L LAB CHEMISTRY METHOD 08/29/2024 12:16 PM [facility] Potassium 4.9 3.5 - 5.5 mmol/L LAB CHEMISTRY METHOD 08/29/2024 12:16 PM [facility] Chloride 95(L) 96 - 110 mmol/L LAB CHEMISTRY METHOD 08/29/2024 12:16 PM [facility] CO2 31 21 - 32 mmol/L LAB CHEMISTRY METHOD 08/29/2024 12:16 PM [facility] Anion Gap 9 3 - 11 LAB CHEMISTRY METHOD 08/29/2024 12:16 PM [facility] Glucose 204(H) 70 - 100 mg/dL LAB CHEMISTRY METHOD 08/29/2024 12:16 PM [facility] BUN 27(H) 5 - 25 mg/dL LAB CHEMISTRY METHOD 08/29/2024 12:16 PM [facility] Creatinine 1.16 0.70 - 1.30 mg/dL LAB CHEMISTRY METHOD 08/29/2024 12:16 PM [facility] eGFR 69 >=60 mL/min/1. 73m2 LAB CHEMISTRY METHOD 08/29/2024 12:16 PM [facility] Comment:Calculation based on the Chronic Kidney Disease Epidemiology Collaboration (CKD-EPI) equation refit without adjustment for race. BUN/Creatinine Ratio 23.3 LAB CHEMISTRY METHOD 08/29/2024 12:16 PM [facility] Calcium 8.4(L) 8.5 - 10.5 mg/dL LAB CHEMISTRY METHOD 08/29/2024 12:16 PM [facility] AST (SGOT) 22 10 - 42 unit/L LAB CHEMISTRY METHOD 08/29/2024 12:16 PM [facility] ALT (SGPT) 20 10 - 60 unit/L LAB CHEMISTRY METHOD 08/29/2024 12:16 PM [facility] Alkaline Phosphatase 122(H) 42 - 121 unit/L LAB CHEMISTRY METHOD 08/29/2024 12:16 PM [facility] Total Protein 6.7 6.0 - 8.0 g/dL LAB CHEMISTRY METHOD 08/29/2024 12:16 PM [facility] Albumin 2.5(L) 3.2 - 5.0 g/dL LAB CHEMISTRY METHOD 08/29/2024 12:16 PM [facility] Total Bilirubin 0.5 0.0 - 1.4 mg/dL LAB CHEMISTRY METHOD 08/29/2024 12:16 PM [facility] Blood Venous blood specimen / Unknown Venipuncture / Unknown 08/29/2024 5:49 AM EDT 08/29/2024 10:52 AM EDT us Reji Sterling MD LAB BLOOD ORDERABLES Final Resul t [facility] [address] [place] [address], * (ABNORMAL) Complete blood count (08/29/2024 5:49 AM EDT) WBC 13.6(H) 4.8 - 10.8 K/mcL LAB HEMETOLOGY METHOD 08/29/2024 11:19 AM T [facility] RBC 5.00 4.50 - 5.50 M/mcL LAB HEMETOLOGY METHOD 08/29/2024 11:19 AM [facility] Hemoglobin 13.6 13.5 - 17.5 g/dL LAB HEMETOLOGY METHOD 08/29/2024 11:19 AM [facility] Hematocrit 45.6 42.0 - 54.0 % LAB HEMETOLOGY METHOD 08/29/2024 11:19 AM [facility] MCV 90.7 79.0 - 98.0 FL LAB HEMETOLOGY METHOD 08/29/2024 11:19 AM [facility] MCH 27.0 27.0 - 32.0 pcg LAB HEMETOLOGY METHOD 08/29/2024 11:19 AM [facility] MCHC 29.8(L) 32.0 - 37.0 g/dL LAB HEMETOLOGY METHOD 08/29/2024 11:19 AM [facility] RDW 15.7(H) 11.0 - 15.0 % LAB HEMETOLOGY METHOD 08/29/2024 11:19 AM [facility] Platelets 318 130 - 400 K/mcL LAB HEMETOLOGY METHOD 08/29/2024 11:19 AM EDT [facility] MPV 9.7 7.0 - 11.0 FL LAB HEMETOLOGY METHOD 08/29/2024 11:19 AM EDT [facility] NRBC 0.0 <1.0 % LAB HEMETOLOGY METHOD 08/29/2024 11:19 AM EDT [facility] NRBC Absolute 0.00 <0.10 K/mcL LAB HEMETOLOGY METHOD 08/29/2024 11:19 AM EDT [facility] Blood Venous blood specimen / Unknown Venipuncture / Unknown 08/29/2024 5:49 AM EDT 08/29/2024 10:52 AM EDT us Reji Sterling MD LAB BLOOD ORDERABLES Final Resul t [facility] [address] [place] [address], documented in this encounter Visit Diagnoses Diagnosis [...] documented as of this encounter Care Teams Computer Terminal Operator Relationship Specialty Start Date End Date Linh Cook MD [address] [phone] PCP - General Internal Medicine 11/05/20 documented as of this encounter
--- OUTSIDE RECORDS SUMMARY | 2024-12-27 20:29 | XMS_ITS | Encounter Summary ---
Author Organization [employer] Address [address] [place] [address] Care Team Providers Care Broadcast Designer Name Role Phone Linh Cook MD Primary Care Provide r Encounter Details Date Type Department Care Team (Late st Contact Info) Description 08/19/2024 Lab Requisition [facility] - Main Lab 299 [facility] [place] [address] Reji Sterling MD [address] [place] [address] 204 [place], [address] Type 2 diabetes mellitus without complications [...] EDT Type 2 diabetes mellitus without complications ([facility] V24, [facility] V28) COMPREHENSIVE METABOLIC PANEL Routine 08/22/2024 5:55 AM EDT Type 2 diabetes mellitus without complications ([facility] V24, [facility] V28) documented in this encounter Results * (ABNORMAL) Comprehensive metabolic panel (08/22/2024 5:55 AM EDT) Sodium 132(L) 133 - 145 mmol/L LAB CHEMISTRY METHOD 08/22/2024 12:50 PM [facility] Potassium 4.9 3.5 - 5.5 mmol/L LAB CHEMISTRY METHOD 08/22/2024 12:50 PM [facility] Chloride 99 96 - 110 mmol/L LAB CHEMISTRY METHOD 08/22/2024 12:50 PM [facility] CO2 27 21 - 32 mmol/L LAB CHEMISTRY METHOD 08/22/2024 12:50 PM [facility] Anion Gap 6 3 - 11 LAB CHEMISTRY METHOD 08/22/2024 12:50 PM [facility] Glucose 264(H) 70 - 100 mg/dL LAB CHEMISTRY METHOD 08/22/2024 12:50 PM [facility] BUN 19 5 - 25 mg/dL LAB CHEMISTRY METHOD 08/22/2024 12:50 PM [facility] Creatinine 0.68(L) 0.70 - 1.30 mg/dL LAB CHEMISTRY METHOD 08/22/2024 12:50 PM [facility] eGFR 103 >=60 mL/min/1. 73m2 LAB CHEMISTRY METHOD 08/22/2024 12:50 PM [facility] Comment:Calculation based on the Chronic Kidney Disease Epidemiology Collaboration (CKD-EPI) equation refit without adjustment for race. BUN/Creatinine Ratio 27.9 LAB CHEMISTRY METHOD 08/22/2024 12:50 PM [facility] Calcium 8.6 8.5 - 10.5 mg/dL LAB CHEMISTRY METHOD 08/22/2024 12:50 PM [facility] AST (SGOT) 21 10 - 42 unit/L LAB CHEMISTRY METHOD 08/22/2024 12:50 PM [facility] ALT (SGPT) 24 10 - 60 unit/L LAB CHEMISTRY METHOD 08/22/2024 12:50 PM [facility] Alkaline Phosphatase 128(H) 42 - 121 unit/L LAB CHEMISTRY METHOD 08/22/2024 12:50 PM [facility] Total Protein 6.4 6.0 - 8.0 g/dL LAB CHEMISTRY METHOD 08/22/2024 12:50 PM [facility] Albumin 2.6(L) 3.2 - 5.0 g/dL LAB CHEMISTRY METHOD 08/22/2024 12:50 PM [facility] Total Bilirubin 0.4 0.0 - 1.4 mg/dL LAB CHEMISTRY METHOD 08/22/2024 12:50 PM [facility] Blood Venous blood specimen / Unknown Venipuncture / Unknown 08/22/2024 5:55 AM EDT 08/22/2024 10:51 AM EDT us Reji Sterling MD LAB BLOOD ORDERABLES Final Resul t [facility] [address] [place] [address], [place] [phone] * (ABNORMAL) Complete blood count (08/22/2024 5:55 AM EDT) WBC 8.1 4.8 - 10.8 K/mcL LAB HEMETOLOGY METHOD 08/22/2024 12:30 PM EDT [facility] RBC 4.90 4.50 - 5.50 M/mcL LAB HEMETOLOGY METHOD 08/22/2024 12:30 PM EDT [facility] Hemoglobin 13.4(L) 13.5 - 17.5 g/dL LAB HEMETOLOGY METHOD 08/22/2024 12:30 PM EDT [facility] Hematocrit 43.6 42.0 - 54.0 % LAB HEMETOLOGY METHOD 08/22/2024 12:30 PM EDT [facility] MCV 88.8 79.0 - 98.0 FL LAB HEMETOLOGY METHOD 08/22/2024 12:30 PM EDT [facility] MCH 27.3 27.0 - 32.0 pcg LAB HEMETOLOGY METHOD 08/22/2024 12:30 PM EDT [facility] MCHC 30.7(L) 32.0 - 37.0 g/dL LAB HEMETOLOGY METHOD 08/22/2024 12:30 PM EDT [facility] RDW 15.3(H) 11.0 - 15.0 % LAB HEMETOLOGY METHOD 08/22/2024 12:30 PM EDT [facility] Platelets 273 130 - 400 K/mcL LAB HEMETOLOGY METHOD 08/22/2024 12:30 PM EDT [facility] MPV 9.7 7.0 - 11.0 FL LAB HEMETOLOGY METHOD 08/22/2024 12:30 PM EDT [facility] NRBC 0.0 <1.0 % LAB HEMETOLOGY METHOD 08/22/2024 12:30 PM EDT [facility] NRBC Absolute 0.00 <0.10 K/mcL LAB HEMETOLOGY METHOD 08/22/2024 12:30 PM EDT [facility] Blood Venous blood specimen / Unknown Venipuncture / Unknown 08/22/2024 5:55 AM EDT 08/22/2024 10:51 AM EDT us Reji Sterling MD LAB BLOOD ORDERABLES Final Resul t [facility] [address] [place] [address], documented in this encounter Visit Diagnoses Diagnosis [...] documented as of this encounter Care Teams Broadcast Designer Relationship Specialty Start Date End Date Linh Cook MD [address] [address] PCP - General Internal Medicine 11/05/20 documented as of this encounter
--- OUTSIDE RECORDS SUMMARY | 2024-12-27 20:29 | XMS_ITS | Encounter Summary ---
Author Organization [employer] Address [address] [place] [address] Care Team Providers Care Audiovisual Production Specialist Name Role Phone Linh Cook MD Primary Care Provide r Encounter Details Date Type Department Care Team (Late st Contact Info) Description 07/06/2024 Lab Requisition [facility] - Main Lab 299 [facility] [place] [address] Reji Sterling MD [address] [place] [address] 204 [place], [address] Heart failure, unspecified (CMS/HCC V24, CMS/HCC [...] 07/06/2024 5:39 AM EDT Heart failure, unspecified ([facility] V24, [facility] V28) Hyperkalemia documented in this encounter Results * (ABNORMAL) Basic metabolic panel (07/06/2024 5:39 AM EDT) Sodium 139 133 - 145 mmol/L LAB CHEMISTRY METHOD 07/06/2024 11:36 AM [facility] Potassium 5.0 3.5 - 5.5 mmol/L LAB CHEMISTRY METHOD 07/06/2024 11:36 AM [facility] Chloride 102 96 - 110 mmol/L LAB CHEMISTRY METHOD 07/06/2024 11:36 AM [facility] CO2 28 21 - 32 mmol/L LAB CHEMISTRY METHOD 07/06/2024 11:36 AM [facility] Anion Gap 9 3 - 11 LAB CHEMISTRY METHOD 07/06/2024 11:36 AM [facility] Glucose 257(H) 70 - 100 mg/dL LAB CHEMISTRY METHOD 07/06/2024 11:36 AM [facility] BUN 19 5 - 25 mg/dL LAB CHEMISTRY METHOD 07/06/2024 11:36 AM EDT [facility] Creatinine 1.05 0.70 - 1.30 mg/dL LAB CHEMISTRY METHOD 07/06/2024 11:36 AM EDT [facility] eGFR 78 >=60 mL/min/1. 73m2 LAB CHEMISTRY METHOD 07/06/2024 11:36 AM EDT [facility] Comment:Calculation based on the Chronic Kidney Disease Epidemiology Collaboration (CKD-EPI) equation refit without adjustment for race. BUN/Creatinine Ratio 18.1 LAB CHEMISTRY METHOD 07/06/2024 11:36 AM EDT [facility] Calcium 8.3(L) 8.5 - 10.5 mg/dL LAB CHEMISTRY METHOD 07/06/2024 11:36 AM T [facility] Blood Venous blood specimen / Unknown Venipuncture / Unknown 07/06/2024 5:39 AM EDT 07/06/2024 10:30 AM EDT us Reji Sterling MD LAB BLOOD ORDERABLES Final Resul t [facility] [address] [place] [address], documented in this encounter Visit Diagnoses Diagnosis [...] documented as of this encounter Care Teams Audiovisual Production Specialist Relationship Specialty Start Date End Date Linh Cook MD [address] [place] [address] PCP - General Internal Medicine 11/05/20 documented as of this encounter
--- OUTSIDE RECORDS SUMMARY | 2024-12-27 20:29 | XMS_ITS | Encounter Summary ---
Author Organization [employer] Address [address] [place] [address] Care Team Providers Care Supervisor Sound Technician Name Role Phone Linh Cook MD Primary Care Provide r Encounter Details Date Type Department Care Team (Late st Contact Info) Description 08/12/2024 Lab Requisition [facility] - Main Lab 299 [facility] [place] [address] Reji Sterling MD [address] [place] [address] 204 [place], [phone] Type 2 diabetes mellitus without complications [...] EDT Type 2 diabetes mellitus without complications ([facility] V24, [facility] V28) COMPREHENSIVE METABOLIC PANEL Routine 08/15/2024 5:34 AM EDT Type 2 diabetes mellitus without complications ([facility] V24, [facility] V28) documented in this encounter Results * (ABNORMAL) Comprehensive metabolic panel (08/15/2024 5:34 AM EDT) Sodium 138 133 - 145 mmol/L LAB CHEMISTRY METHOD 08/15/2024 10:21 AM [facility] Potassium 4.7 3.5 - 5.5 mmol/L LAB CHEMISTRY METHOD 08/15/2024 10:21 AM [facility] Chloride 101 96 - 110 mmol/L LAB CHEMISTRY METHOD 08/15/2024 10:21 AM [facility] CO2 29 21 - 32 mmol/L LAB CHEMISTRY METHOD 08/15/2024 10:21 AM [facility] Anion Gap 8 3 - 11 LAB CHEMISTRY METHOD 08/15/2024 10:21 AM [facility] Glucose 297(H) 70 - 100 mg/dL LAB CHEMISTRY METHOD 08/15/2024 10:21 AM [facility] BUN 18 5 - 25 mg/dL LAB CHEMISTRY METHOD 08/15/2024 10:21 AM [facility] Creatinine 0.84 0.70 - 1.30 mg/dL LAB CHEMISTRY METHOD 08/15/2024 10:21 AM [facility] eGFR 96 >=60 mL/min/1. 73m2 LAB CHEMISTRY METHOD 08/15/2024 10:21 AM [facility] Comment:Calculation based on the Chronic Kidney Disease Epidemiology Collaboration (CKD-EPI) equation refit without adjustment for race. BUN/Creatinine Ratio 21.4 LAB CHEMISTRY METHOD 08/15/2024 10:21 AM [facility] Calcium 9.1 8.5 - 10.5 mg/dL LAB CHEMISTRY METHOD 08/15/2024 10:21 AM [facility] AST (SGOT) 19 10 - 42 unit/L LAB CHEMISTRY METHOD 08/15/2024 10:21 AM [facility] ALT (SGPT) 33 10 - 60 unit/L LAB CHEMISTRY METHOD 08/15/2024 10:21 AM [facility] Alkaline Phosphatase 136(H) 42 - 121 unit/L LAB CHEMISTRY METHOD 08/15/2024 10:21 AM [facility] Total Protein 6.8 6.0 - 8.0 g/dL LAB CHEMISTRY METHOD 08/15/2024 10:21 AM [facility] Albumin 2.8(L) 3.2 - 5.0 g/dL LAB CHEMISTRY METHOD 08/15/2024 10:21 AM [facility] Total Bilirubin 0.5 0.0 - 1.4 mg/dL LAB CHEMISTRY METHOD 08/15/2024 10:21 AM [facility] Blood Venous blood specimen / Unknown Venipuncture / Unknown 08/15/2024 5:34 AM EDT 08/15/2024 10:18 AM EDT us Reji Sterling MD LAB BLOOD ORDERABLES Final Resul t [facility] [address] [place] [address], [place] [phone] * (ABNORMAL) Complete blood count (08/15/2024 5:34 AM EDT) WBC 8.1 4.8 - 10.8 K/mcL LAB HEMETOLOGY METHOD 08/15/2024 10:15 AM EDT [facility] RBC 5.10 4.50 - 5.50 M/mcL LAB HEMETOLOGY METHOD 08/15/2024 10:15 AM EDT [facility] Hemoglobin 13.8 13.5 - 17.5 g/dL LAB HEMETOLOGY METHOD 08/15/2024 10:15 AM EDT [facility] Hematocrit 46.3 42.0 - 54.0 % LAB HEMETOLOGY METHOD 08/15/2024 10:15 AM EDT [facility] MCV 90.1 79.0 - 98.0 FL LAB HEMETOLOGY METHOD 08/15/2024 10:15 AM EDT [facility] MCH 26.8(L) 27.0 - 32.0 pcg LAB HEMETOLOGY METHOD 08/15/2024 10:15 AM EDT [facility] MCHC 29.8(L) 32.0 - 37.0 g/dL LAB HEMETOLOGY METHOD 08/15/2024 10:15 AM EDT [facility] RDW 15.2(H) 11.0 - 15.0 % LAB HEMETOLOGY METHOD 08/15/2024 10:15 AM EDT [facility] Platelets 228 130 - 400 K/mcL LAB HEMETOLOGY METHOD 08/15/2024 10:15 AM EDT [facility] MPV 9.7 7.0 - 11.0 FL LAB HEMETOLOGY METHOD 08/15/2024 10:15 AM EDT [facility] NRBC 0.0 <1.0 % LAB HEMETOLOGY METHOD 08/15/2024 10:15 AM EDT [facility] NRBC Absolute 0.00 <0.10 K/mcL LAB HEMETOLOGY METHOD 08/15/2024 10:15 AM EDT [facility] Blood Venous blood specimen / Unknown Venipuncture / Unknown 08/15/2024 5:34 AM EDT 08/15/2024 10:14 AM EDT us Reji Sterling MD LAB BLOOD ORDERABLES Final Resul t [facility] [address] [place] [address], documented in this encounter Visit Diagnoses Diagnosis [...] as of this encounter Care Teams Supervisor Sound Technician Relationship Specialty Start Date End Date Linh Cook MD [address] [place] [phone] PCP - General Internal Medicine 11/05/20 documented as of this encounter
--- OUTSIDE RECORDS SUMMARY | 2024-12-27 20:29 | XMS_ITS | Encounter Summary ---
Author Organization [employer] Address [address] [place] [address] Care Team Providers Care Console Operator Name Role Phone Linh Cook MD Primary Care Provide r Encounter Details Date Type Department Care Team (Late st Contact Info) Description 08/17/2024 Lab Requisition [facility] - Main Lab 299 [facility] [address] Reji Sterling MD [address] [place] [address] 204 [place], [address] Gout, unspecified Social History Tobacco Use [...] LAB CHEMISTRY METHOD 08/17/2024 12:08 PM EDT [facility] Blood Venous blood specimen / Unknown Venipuncture / Unknown 08/17/2024 6:07 AM EDT 08/17/2024 9:53 AM EDT us Reji Sterling MD LAB BLOOD ORDERABLES Final Resul t [facility] [address] [place] [address], documented in this encounter Visit Diagnoses Diagnosis [...] documented as of this encounter Care Teams Console Operator Relationship Specialty Start Date End Date Linh Cook MD [address] [phone] PCP - General Internal Medicine 11/05/20 documented as of this encounter
--- OUTSIDE RECORDS SUMMARY | 2024-12-27 20:29 | XMS_ITS | Encounter Summary ---
Author Organization [employer] Address [address] [place] [address] Care Team Providers Care Home Theater Experience Expert Name Role Phone Linh Cook MD Primary Care Provide r Encounter Details Date Type Department Care Team (Late st Contact Info) Description 08/08/2024 Lab Requisition [facility] - Main Lab 299 [facility] [place] [address] Reji Sterling MD [address] [place] [address] [address] [place], [phone] Type 2 diabetes mellitus without complications [...] Assessment Author No 05/09/2024 5:28 PM Carolyn Arlelano RN * Are you blind or do [...] EDT Type 2 diabetes mellitus without complications ([facility] V24, [facility] V28) Gout, unspecified Hyperlipidemia, unspecified COMPLETE BLOOD COUNT Routine 08/08/2024 6:55 AM EDT Type 2 diabetes mellitus without complications ([facility]/HCC V24, CMS/[facility] V28) Gout, unspecified Hyperlipidemia, unspecified FERRITIN Routine 08/08/2024 6:55 AM EDT Type 2 diabetes mellitus without complications (CMS/[facility] V24, CMS/[facility] V28) Gout, unspecified Hyperlipidemia, unspecified COMPREHENSIVE METABOLIC PANEL Routine 08/08/2024 6:55 AM EDT Type 2 diabetes mellitus without complications ([facility] V24, CMS/[facility] V28) Gout, unspecified Hyperlipidemia, unspecified documented in this encounter Results * Ferritin (08/08/2024 6:55 AM EDT) Ferritin 184 26 - 388 ng/mL LAB CHEMISTRY METHOD 08/08/2024 11:52 AM EDT [facility] Blood Venous blood specimen / Unknown Venipuncture / Unknown 08/08/2024 6:55 AM EDT 08/08/2024 10:13 AM EDT us Reji Sterling MD LAB BLOOD ORDERABLES Final Resul t Performing Organization Address [facility]/ZIP Co de Phone Number [facility] [address] [place] [address], [place] [phone] * (ABNORMAL) Iron and TIBC (08/08/2024 6:55 AM EDT) Iron 50 50 - 160 mcg/dL LAB CHEMISTRY METHOD 08/08/2024 11:52 AM EDT [facility] TIBC 264 250 - 450 mcg/dL LAB CHEMISTRY METHOD 08/08/2024 11:52 AM EDT [facility] Iron Saturation 19(L) 20 - 50 % LAB CHEMISTRY METHOD 08/08/2024 11:52 AM EDT [facility] Blood Venous blood specimen / Unknown Venipuncture / Unknown 08/08/2024 6:55 AM EDT 08/08/2024 10:13 AM EDT us Reji Sterling MD LAB BLOOD ORDERABLES Final Resul t Performing Organization Address [facility] de Phone Number [facility] [address] [place] [address], [place] [phone] * (ABNORMAL) Comprehensive metabolic panel (08/08/2024 6:55 AM EDT) Sodium 136 133 - 145 mmol/L LAB CHEMISTRY METHOD 08/08/2024 11:52 AM EDT [facility] Potassium 4.7 3.5 - 5.5 mmol/L LAB CHEMISTRY METHOD 08/08/2024 11:52 AM EDT [facility] Chloride 99 96 - 110 mmol/L LAB CHEMISTRY METHOD 08/08/2024 11:52 AM EDT [facility] CO2 31 21 - 32 mmol/L LAB CHEMISTRY METHOD 08/08/2024 11:52 AM [facility] Anion Gap 6 3 - 11 LAB CHEMISTRY METHOD 08/08/2024 11:52 AM [facility] Glucose 229(H) 70 - 100 mg/dL LAB CHEMISTRY METHOD 08/08/2024 11:52 AM [facility] BUN 20 5 - 25 mg/dL LAB CHEMISTRY METHOD 08/08/2024 11:52 AM [facility] Creatinine 1.04 0.70 - 1.30 mg/dL LAB CHEMISTRY METHOD 08/08/2024 11:52 AM [facility] eGFR 79 >=60 mL/min/1. 73m2 LAB CHEMISTRY METHOD 08/08/2024 11:52 AM [facility] Comment:Calculation based on the Chronic Kidney Disease Epidemiology Collaboration (CKD-EPI) equation refit without adjustment for race. BUN/Creatinine Ratio 19.2 LAB CHEMISTRY METHOD 08/08/2024 11:52 AM [facility] Calcium 8.9 8.5 - 10.5 mg/dL LAB CHEMISTRY METHOD 08/08/2024 11:52 AM [facility] AST (SGOT) 31 10 - 42 unit/L LAB CHEMISTRY METHOD 08/08/2024 11:52 AM [facility] ALT (SGPT) 30 10 - 60 unit/L LAB CHEMISTRY METHOD 08/08/2024 11:52 AM [facility] Alkaline Phosphatase 119 42 - 121 unit/L LAB CHEMISTRY METHOD 08/08/2024 11:52 AM [facility] Total Protein 6.6 6.0 - 8.0 g/dL LAB CHEMISTRY METHOD 08/08/2024 11:52 AM [facility] Albumin 2.5(L) 3.2 - 5.0 g/dL LAB CHEMISTRY METHOD 08/08/2024 11:52 AM [facility] Total Bilirubin 0.3 0.0 - 1.4 mg/dL LAB CHEMISTRY METHOD 08/08/2024 11:52 AM T [facility] Blood Venous blood specimen / Unknown Venipuncture / Unknown 08/08/2024 6:55 AM EDT 08/08/2024 10:13 AM EDT us Reji Sterling MD LAB BLOOD ORDERABLES Final Resul t [facility] [address] [place] [address], [place] [phone] * (ABNORMAL) Complete blood count (08/08/2024 6:55 AM EDT) WBC 5.9 4.8 - 10.8 K/mcL LAB HEMETOLOGY METHOD 08/08/2024 11:00 AM [facility] RBC 4.90 4.50 - 5.50 M/mcL LAB HEMETOLOGY METHOD 08/08/2024 11:00 AM [facility] Hemoglobin 13.2(L) 13.5 - 17.5 g/dL LAB HEMETOLOGY METHOD 08/08/2024 11:00 AM [facility] Hematocrit 45.5 42.0 - 54.0 % LAB HEMETOLOGY METHOD 08/08/2024 11:00 AM [facility] MCV 92.7 79.0 - 98.0 FL LAB HEMETOLOGY METHOD 08/08/2024 11:00 AM [facility] MCH 26.9(L) 27.0 - 32.0 pcg LAB HEMETOLOGY METHOD 08/08/2024 11:00 AM [facility] MCHC 29.0(L) 32.0 - 37.0 g/dL LAB HEMETOLOGY METHOD 08/08/2024 11:00 AM [facility] RDW 15.2(H) 11.0 - 15.0 % LAB HEMETOLOGY METHOD 08/08/2024 11:00 AM EDT [facility] Platelets 360 130 - 400 K/mcL LAB HEMETOLOGY METHOD 08/08/2024 11:00 AM EDT [facility] MPV 9.3 7.0 - 11.0 FL LAB HEMETOLOGY METHOD 08/08/2024 11:00 AM EDT [facility] NRBC 0.0 <1.0 % LAB HEMETOLOGY METHOD 08/08/2024 11:00 AM EDT [facility] NRBC Absolute 0.00 <0.10 K/mcL LAB HEMETOLOGY METHOD 08/08/2024 11:00 AM EDT [facility] Blood Venous blood specimen / Unknown Venipuncture / Unknown 08/08/2024 6:55 AM EDT 08/08/2024 10:13 AM EDT us Reji Sterling MD LAB BLOOD ORDERABLES Final Resul t [facility] [address] [place] [address], documented in this encounter Visit Diagnoses Diagnosis [...] documented as of this encounter Care Teams Home Theater Experience Expert Relationship Specialty Start Date End Date Linh Cook MD [address] [place] [phone] PCP - General Internal Medicine 11/05/20 documented as of this encounter
--- OUTSIDE RECORDS SUMMARY | 2024-12-27 20:29 | XMS_ITS | Encounter Summary ---
Author Organization [employer] Address [address] [place] [address] Care Team Providers Care Merchandising Internship Name Role Phone Linh Cook MD Primary Care Provide r Encounter Details Date Type Department Care Team (Late st Contact Info) Description 09/02/2024 Lab Requisition [facility] - Main Lab 299 [facility] [place] [address] Reji Sterling MD [address] [place] [address] [address] [place], [phone] Type 2 diabetes mellitus without complications [...] Diagnosis Type 2 diabetes mellitus without complications (CMS/[facility] V24, [facility] V28) documented in this encounter Additional Health Concerns Infection Onset Date Last Indicated Resolved Time ESBL 07/27/2024 10/26/2024 MRSA Comment:Facility does not currently isolate for MRSA. 12/08/2024 12/08/2024 12/09/2024 9:11 AM E DT Respiratory Rule-Out 12/09/2024 12/09/2024 025 10:27 AM EDT COVID-19 Rule-Out 12/09/2024 12/09/2024 12/09/2024 10:27 AM EDT documented as of this encounter Care Teams Merchandising Internship Relationship Specialty Start Date End Date Linh Cook MD [address] [place] [phone] PCP - General Internal Medicine 11/05/20 documented as of this encounter
--- OUTSIDE RECORDS SUMMARY | 2024-12-27 20:29 | XMS_ITS | Encounter Summary ---
Author Organization [employer] Address [address] [place] [address] Care Team Providers Care Neonatal Social Worker Name Role Phone Linh Cook MD Primary Care Provide r Encounter Details Date Type Department Care Team (Late st Contact Info) Description 07/16/2024 Lab Requisition [facility] - Main Lab 299 [facility] [place] [address] Reji Sterling MD [address] [place] [address] [address] [place], [phone] Acute kidney failure, unspecified (CMS/HCC V24); [...] 6:15 AM EDT Acute kidney failure, unspecified ([facility] V24) Cellulitis of left upper limb BASIC METABOLIC PANEL Routine 07/18/2024 6:15 AM EDT Acute kidney failure, unspecified ([facility] V24) Cellulitis of left upper limb documented in this encounter Results * (ABNORMAL) Basic metabolic panel (07/18/2024 6:15 AM EDT) Sodium 136 133 - 145 mmol/L LAB CHEMISTRY METHOD 07/18/2024 11:32 AM [facility] Potassium 4.5 3.5 - 5.5 mmol/L LAB CHEMISTRY METHOD 07/18/2024 11:32 AM [facility] Chloride 105 96 - 110 mmol/L LAB CHEMISTRY METHOD 07/18/2024 11:32 AM [facility] CO2 25 21 - 32 mmol/L LAB CHEMISTRY METHOD 07/18/2024 11:32 AM [facility] Anion Gap 6 3 - 11 LAB CHEMISTRY METHOD 07/18/2024 11:32 AM [facility] Glucose 179(H) 70 - 100 mg/dL LAB CHEMISTRY METHOD 07/18/2024 11:32 AM EDT [facility] BUN 12 5 - 25 mg/dL LAB CHEMISTRY METHOD 07/18/2024 11:32 AM EDT [facility] Comment:Results verified by repeat testing Creatinine 0.84 0.70 - 1.30 mg/dL LAB CHEMISTRY METHOD 07/18/2024 11:32 AM EDT [facility] eGFR 96 >=60 mL/min/1. 73m2 LAB CHEMISTRY METHOD 07/18/2024 11:32 AM EDT [facility] Comment:Calculation based on the Chronic Kidney Disease Epidemiology Collaboration (CKD-EPI) equation refit without adjustment for race. BUN/Creatinine Ratio 14.3 LAB CHEMISTRY METHOD 07/18/2024 11:32 AM T [facility] Calcium 8.3(L) 8.5 - 10.5 mg/dL LAB CHEMISTRY METHOD 07/18/2024 11:32 AM T [facility] Blood Venous blood specimen / Unknown Venipuncture / Unknown 07/18/2024 6:15 AM EDT 07/18/2024 10:25 AM EDT us Reji Sterling MD LAB BLOOD ORDERABLES Final Resul t [facility] [address] [place] [address], * (ABNORMAL) Complete blood count (07/18/2024 6:15 AM EDT) WBC 6.1 4.8 - 10.8 K/mcL LAB HEMETOLOGY METHOD 07/18/2024 11:01 AM EDT [facility] RBC 4.60 4.50 - 5.50 M/mcL LAB HEMETOLOGY METHOD 07/18/2024 11:01 AM EDT [facility] Hemoglobin 12.9(L) 13.5 - 17.5 g/dL LAB HEMETOLOGY METHOD 07/18/2024 11:01 AM EDT [facility] Hematocrit 43.5 42.0 - 54.0 % LAB HEMETOLOGY METHOD 07/18[facility]24 [facility] MCV 94.6 79.0 - 98.0 FL LAB HEMETOLOGY METHOD 07/18[facility]2024 [facility] MCH 28.0 27.0 - 32.0 pcg LAB HEMETOLOGY METHOD 07/18/2024 11:01 AM EDT [facility] MCHC 29.7(L) 32.0 - 37.0 g/dL LAB HEMETOLOGY METHOD 07/18/2024 11:01 AM [facility] RDW 15.3(H) 11.0 - 15.0 % LAB HEMETOLOGY METHOD 07/18/2024 11:[facility] Platelets 249 130 - 400 K/mcL LAB HEMETOLOGY METHOD 07/18/2024 11:01 AM EDT [facility] MPV 9.2 7.0 - 11.0 FL LAB HEMETOLOGY METHOD 07/18/2024 11:01 AM [facility] NRBC 0.0 <1.0 % LAB HEMETOLOGY METHOD 07/18/2024 11:01 AM EDT [facility] NRBC Absolute 0.00 <0.10 K/mcL LAB HEMETOLOGY METHOD 07/18/2024 11:01 AM [facility] Blood Venous blood specimen / Unknown Venipuncture / Unknown 07/18/2024 6:15 AM EDT 07/18/2024 10:25 AM EDT us Reji Sterling MD LAB BLOOD ORDERABLES Final Resul t [facility] [address] [place], [place] [address] [phone] documented in this encounter Visit Diagnoses Diagnosis Acute kidney failure, unspecified (CMS/[facility] V24) Acute kidney failure, unspecified Cellulitis [...] documented as of this encounter Care Teams Neonatal Social Worker Relationship Specialty Start Date End Date Linh Cook MD [address] [phone] PCP - General Internal Medicine 11/05/20 documented as of this encounter
--- OUTSIDE RECORDS SUMMARY | 2024-12-27 20:30 | XMS_ITS | Encounter Summary ---
Author Organization [employer] Address [address] [place] [address] Care Team Providers Care Youth Support Worker Name Role Phone Linh Cook MD Primary Care Provide r Encounter Details Date Type Department Care Team (Late st Contact Info) Description 07/27/2024 Lab Requisition [facility] - Main Lab 299 [facility] [address] Reji Sterling MD [address] [place] [address] [address] [place], [phone] Urinary tract infection, site not specified [...] reflex microscopic (07/27/2024 4:50 AM EDT) Specific Amalia Urine 1.026 1.003 - 1.030 LAB URINALYSIS - AUTOMATED METHOD 07/27/2024 9:31 AM [facility] pH, Urine 7.0 5.0 - 8.0 pH LAB URINALYSIS - AUTOMATED METHOD 07/27/2024 9:31 AM [facility] Leukocytes, Urine Small(A) Negative LAB URINALYSIS - AUTOMATED METHOD 07/27/2024 9:31 AM [facility] Nitrite, Urine Negative Negative LAB URINALYSIS - AUTOMATED METHOD 07/27/2024 9:31 AM [facility] Protein, Urine Negative <=Trace mg/dL LAB URINALYSIS - AUTOMATED METHOD 07/27/2024 9:31 AM [facility] Glucose, Urine >=1000(A) Negative mg/dL LAB URINALYSIS - AUTOMATED METHOD 07/27/2024 9:31 AM [facility] Ketones, Urine Negative Negative mg/dL LAB URINALYSIS - AUTOMATED METHOD 07/27/2024 9:31 AM [facility] Urobilinogen , Urine 1.0 0.2 - 1.0 mg/dL LAB URINALYSIS - AUTOMATED METHOD 07/27/2024 9:31 AM [facility] Bilirubin, Urine Negative Negative LAB URINALYSIS - AUTOMATED METHOD 07/27/2024 9:31 AM [facility] Blood, Urine Negative Negative LAB URINALYSIS - AUTOMATED METHOD 07/27/2024 9:31 AM [facility] RBC, Urine 4.9(H) 0 - 4 /HPF LAB URINALYSIS - AUTOMATED METHOD 07/27/2024 9:31 AM [facility] WBC, Urine 53.0(H) 0 - 4 /HPF LAB URINALYSIS - AUTOMATED METHOD 07/27/2024 9:31 AM [facility] Squamous Epithelial, Urine 12 0 - 60 /LPF LAB URINALYSIS - AUTOMATED METHOD 07/27/2024 9:31 AM [facility] Bacteria, Urine Many(A) Negative /HPF LAB URINALYSIS - AUTOMATED METHOD 07/27/2024 9:31 AM [facility] Hyaline Casts, Urine 0.4 0 - 3 /LPF LAB URINALYSIS - AUTOMATED METHOD 07/27/2024 9:31 AM [facility] Urine Urine specimen obtained by clean catch procedure / Unknown 07/27/2024 4:50 AM EDT 07/27/2024 9:19 AM EDT us Reji Sterling MD LAB URINE ORDERABLES Final Resul t Performing Organization Address [facility]/ZIP Co de Phone Number [facility] [address] [place] [address], [place] [phone] * (ABNORMAL) Culture urine (07/27/2024 4:50 AM EDT) Culture, Urine >100,000 CFU/mL Escherichia coli ESBL(A) TONYA 07/30/2024 8:35 AM EDT [facility] Comment: THIS ORGANISM IS POSITIVE [...] - GENERAL ORDER TASIA Final Result [facility] [address] [place] [address], documented in this encounter Visit Diagnoses Diagnosis [...] documented as of this encounter Care Teams Youth Support Worker Relationship Specialty Start Date End Date Linh Cook MD [address] [phone] PCP - General Internal Medicine 11/05/20 documented as of this encounter
--- OUTSIDE RECORDS SUMMARY | 2024-12-27 20:30 | XMS_ITS | Encounter Summary ---
Author Organization [employer] Address [address] [facility] [address]t [place] [address] Care Team Providers Care Supplier Quality Engineer Name Role Phone Linh Cook MD Primary Care Provide r Reason for Visit * Reason Comments Med Refill Encounter Details Date Type Department Care Team (Late st Contact Info) Description 03/04/2023 Refill [facility] [address] [place], [place] [phone] Risa Leiva MD [address] [place], [place] [phone] Diabetic polyneuropathy associated with type 2 diabetes [...] Description 02/15/2025 10:45 AM EST Office Visit [facility] [address] [place] [address] Linh Cook MD [address] [place] [address] documented as of this encounter Visit Diagnoses Diagnosis Diabetic polyneuropathy associated with type 2 diabetes mellitus (HCC) documented in this encounter Additional Health Concerns Assessment Noted Time PHQ-9 Depression Total Score: 8 06/26/19 23 3:29 PM EDT documented as of this encounter Care Teams Supplier Quality Engineer Relationship Specialty Start Date End Date Lnih Cook MD [address] [place] [address] PCP - General Family Medicine 06/22/18 [facility] 06/10/23 documented as of this encounter
--- OUTSIDE RECORDS SUMMARY | 2024-12-27 20:30 | XMS_ITS | Encounter Summary ---
Author Organization [employer] Address [address] [facility] 7[address] [place] [address] Care Team Providers Care Chocolate Coater Name Role Phone Linh Cook MD Primary Care Provide r Reason for Visit * Reason Comments Med Refill Encounter Details Date Type Department Care Team ([facility] st Contact Info) Description 03/04/2023 Refill [facility] [address] [place], [place] [phone] Linh Cook MD [address] [place] [address] Diabetic peripheral neuropathy (CMS/HCC) Social History Tobacco [...] Description 02/15/2025 10:45 AM EST Office Visit [facility] [address] [place] [address] Linh Cook MD [address] [place] [address] documented as of this encounter Visit Diagnoses Diagnosis Diabetic peripheral neuropathy (HCC) Type II or unspecified type diabetes mellitus with neurological manifestations, not stated as uncontrolled documented in this encounter Additional Health Concerns Assessment Noted Time PHQ-9 Depression Total Score: 8 06/26/19 23 3:29 PM EDT documented as of this encounter Care Teams Chocolate Coater Relationship Specialty Start Date End Date Linh Cook MD [address] [place] [address] PCP - General Family Medicine 06/22/18 [facility] 06/10/23 documented as of this encounter
--- OUTSIDE RECORDS SUMMARY | 2024-12-27 20:30 | XMS_ITS | Encounter Summary ---
Author Organization [employer] Address [address] [place] [address] Care Team Providers Care Wing Commander Name Role Phone Linh Cook MD Primary Care Provide r Encounter Details Date Type Department Care Team (Late st Contact Info) Description 07/02/[address] [facility] - Main Lab 299 [facility] [place] [address] Reji Sterling MD [address] [place] [address] [address] [place], [address] Cellulitis of left upper limb; Acute [...] left upper limb Acute kidney failure, unspecified ([facility] V24) BASIC METABOLIC PANEL Routine 07/04/2024 5:45 AM EDT Cellulitis of left upper limb Acute kidney failure, unspecified ([facility] V24) documented in this encounter Results * (ABNORMAL) Basic metabolic panel (07/04/2024 5:45 AM EDT) Sodium 139 133 - 145 mmol/L LAB CHEMISTRY METHOD 07/04/2024 2:54 PM [facility] Potassium 5.8(H) 3.5 - 5.5 mmol/L LAB CHEMISTRY METHOD 07/04/2024 2:54 PM [facility] Comment:Hemolysis present Chloride 104 96 - 110 mmol/L LAB CHEMISTRY METHOD 07/04/2024 2:54 PM [facility] CO2 26 21 - 32 mmol/L LAB CHEMISTRY METHOD 07/04/2024 2:54 PM [facility] Anion Gap 9 3 - 11 LAB CHEMISTRY METHOD 07/04/2024 2:54 PM [facility] Glucose 155(H) 70 - 100 mg/dL LAB CHEMISTRY METHOD 07/04/2024 2:54 PM EDT [facility] BUN 21 5 - 25 mg/dL LAB CHEMISTRY METHOD 07/04/2024 2:54 PM EDT [facility] Creatinine 0.98 0.70 - 1.30 mg/dL LAB CHEMISTRY METHOD 07/04/2024 2:54 PM EDT [facility] eGFR 85 >=60 mL/min/1. 73m2 LAB CHEMISTRY METHOD 07/04/2024 2:54 PM EDT [facility] Comment:Calculation based on the Chronic Kidney Disease Epidemiology Collaboration (CKD-EPI) equation refit without adjustment for race. BUN/Creatinine Ratio 21.4 LAB CHEMISTRY METHOD 07/04/2024 2:54 PM EDT [facility] Calcium 8.7 8.5 - 10.5 mg/dL LAB CHEMISTRY METHOD 07/04/2024 2:54 PM EDT [facility] Blood Venous blood specimen / Unknown Venipuncture / Unknown 07/04/2024 5:45 AM EDT 07/04/2024 9:55 AM EDT us Reji Sterling MD LAB BLOOD ORDERABLES Final Resul t [facility] [address] [place] [address], * (ABNORMAL) Complete blood count (07/04/2024 5:45 AM EDT) WBC 9.6 4.8 - 10.8 K/mcL LAB HEMETOLOGY METHOD 07/04/2024 10:20 AM EDT [facility] RBC 4.70 4.50 - 5.50 M/mcL LAB HEMETOLOGY METHOD 07/04/2024 10:20 AM EDT [facility] Hemoglobin 13.5 13.5 - 17.5 g/dL LAB HEMETOLOGY METHOD 07/04/2024 10:20 AM EDT [facility] Hematocrit 45.4 42.0 - 54.0 % LAB HEMETOLOGY METHOD 07/04/2024 10:20 AM EDT [facility] MCV 97.2 79.0 - 98.0 FL LAB HEMETOLOGY METHOD 07/04/2024 10:20 AM EDT [facility] MCH 28.9 27.0 - 32.0 pcg LAB HEMETOLOGY METHOD 07/04/2024 10:20 AM EDT [facility] MCHC 29.7(L) 32.0 - 37.0 g/dL LAB HEMETOLOGY METHOD 07/04/2024 10:20 AM EDT [facility] RDW 14.1 11.0 - 15.0 % LAB HEMETOLOGY METHOD 07/04/2024 10:20 AM EDT [facility] Platelets 579(H) 130 - 400 K/mcL LAB HEMETOLOGY METHOD 07/04/2024 10:20 AM EDT [facility] MPV 9.4 7.0 - 11.0 FL LAB HEMETOLOGY METHOD 07/04/2024 10:20 AM EDT [facility] NRBC 0.0 <1.0 % LAB HEMETOLOGY METHOD 07/04/2024 10:20 AM EDT [facility] NRBC Absolute 0.00 <0.10 K/mcL LAB HEMETOLOGY METHOD 07/04/2024 10:20 AM T [facility] Blood Venous blood specimen / Unknown Venipuncture / Unknown 07/04/2024 5:45 AM EDT 07/04/2024 9:55 AM EDT us Reji Sterling MD LAB BLOOD ORDERABLES Final Resul t [facility] [address] [place], [place] [address] [phone] documented in this encounter Visit Diagnoses Diagnosis Cellulitis of left upper limb Acute kidney failure, unspecified ([facility] V24) Acute kidney failure, unspecified documented in this encounter Additional Health Concerns Infection Onset Date Last Indicated Resolved Time ESBL 07/27/2024 10/26/2024 MRSA Comment:Facility does not currently isolate for MRSA. 12/08/2024 12/08/2024 12/09/2024 9:11 AM E DT Respiratory Rule-Out 12/09/2024 12/09/2024 025 10:27 AM EDT COVID-19 Rule-Out 12/09/2024 12/09/2024 12/09/2024 10:27 AM EDT documented as of this encounter Care Teams Wing Commander Relationship Specialty Start Date End Date Linh Cook MD [address] [address] PCP - General Internal Medicine 11/05/20 documented as of this encounter
--- OUTSIDE RECORDS SUMMARY | 2024-12-27 20:30 | XMS_ITS ---
Care Plan Created on: December 27, 2024 HanselRamiro : 1960 Sex: Male Author Organization [facility] Address [address] [place] [address] Phone Care Team Providers Care Petroleum Analyst Name Role Phone Linh Cook MD Primary Care Provide r Active Problems Problem Noted Date Diagnosed Date Type 2 diabetes mellitus wit h other skin ulcer (CODE) (CMS/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 V24, CMS/HCC V28) 12/21/2024 Hypotension due to hypovolemia 04/01/2024 Assessment & [...] For completeness, can interrogate the device at [facility]. Or alternatively, confer with his machinery erector at [facility] if he has had a recent interrogation. Paroxysmal atrial flutter ([facility] V24, [facility] V28) 04/01/2024 Assessment & Plan (04/01/2024 7:05 PM EST): Would hold Xarelto for now in case the patient needs a right heart cath. Can be resumed at [facility] if it is determined that he does not need any procedures. Resolved Problems Problem Noted Date Diagnosed Date Resolved Date LUCA (acute kidney injury) ([facility] V24) 12/08/2024 12/11/2024 Additional Health Concerns Active Problems Noted Date Diagnosed Date Impaired Tissue 12/21/2024 Education needed on impact of smoking on wound 1 Education needed related to ulceration/compromised skin integrity. 12/21/2024 Infection Onset Date Last Indicated ESBL 07/27/2024 10/26/2024 Goals Goal Patient Goal Type Associated Problems Recent Progress Patient-Stated? Author Decrease Wound Volume by X% by date (in notes) Care Plan Impaired Tissue Liliane Hubbard RN Patient and Caregiver Understand Wound Care Education Care Plan Impaired Tissue Liliane Hubbard RN Wound volume breakdown reduced by X% by week 4 Care Plan Impaired Tissue Liliane Hubbard RN Wound volume breakdown reduced by X% by week 8 Care Plan Impaired Tissue Liliane Hubbard RN Wound volume breakdown reduced by X% by week 12 Care Plan Impaired Tissue Liliane Hubbard RN Quit using tobacco (cigarettes, smokeless, etc) Care Plan Education needed on impact of smoking on wound Liliane Hubbard RN Reduce tobacco use (cigarettes, smokeless, etc) Care Plan Education needed on impact of smoking on wound Liliane Hubbard RN Decrease Wound Volume by X% by date (in notes) Care Plan Education needed on impact of smoking on wound Liliane Hubbard RN Patient and Caregiver Understand Wound Care Education Care Plan Education needed related to ulceration/compr omised skin integrity. Liliane Hubbard RN Interventions Care Plan Interventions Intervention Entry Date Outcome Provide caregiver with wound care procedure information 12/21/2024 Educate caregiver on proper wound care procedures 12/21/2024 Give provider list of wound care supplies 12/21/2024 Refill wound care supplies 12/21/2024 Send Wound Care Supplies 12/21/2024 Give provider list of wound care supplies 12/21/2024 Refill wound care supplies 12/21/2024 Send Wound Care Supplies 12/21/2024 Provide caregiver with wound care procedure information 12/21/2024 Educate caregiver on proper wound care procedures 12/21/2024 Document patient eligibility for HBO 12/21/2024 Assess patient for HBO treatment 12/21/2024 Record wound depth 12/21/2024 Record total wound area 12/21/2024 Measure wound progress 12/21/2024 Create an action plan identifying patient strengths and supports 12/21/2024 Establish quit date with patient 12/21/2024 Discuss prior cessation attempts 12/21/2024 Discuss preferred method of cessation and plan 12/21/2024 Discuss barriers to smoking cessation 12/21/2024 Discuss smoking status with patient 12/21/2024 Create an action plan identifying patient strengths and supports 12/21/2024 Establish quit date with patient 12/21/2024 Discuss prior cessation attempts 12/21/2024 Discuss preferred method of cessation and plan 12/21/2024 Discuss barriers to smoking cessation 12/21/2024 Discuss smoking status with patient 12/21/2024 Provide caregiver with wound care procedure information 12/21/2024 Educate caregiver on proper wound care procedures 12/21/2024 Document patient eligibility for HBO 12/21/2024 Assess patient for HBO treatment 12/21/2024 Record wound depth 12/21/2024 Record total wound area 12/21/2024 Measure wound progress 12/21/2024 Provide caregiver with wound care procedure information 12/21/2024 Educate caregiver on proper wound care procedures 12/21/2024 Document patient eligibility for HBO 12/21/2024 Assess patient for HBO treatment 12/21/2024 Record wound depth 12/21/2024 Record total wound area 12/21/2024 Measure wound progress 12/21/2024 Provide caregiver with wound care procedure information 12/21/2024 Educate caregiver on proper wound care procedures 12/21/2024 Document patient eligibility for HBO 12/21/2024 Assess patient for HBO treatment 12/21/2024 Record wound depth 12/21/2024 Record total wound area 12/21/2024 Measure wound progress 12/21/2024 Provide caregiver with wound care procedure information 12/21/2024 Educate caregiver on proper wound care procedures 12/21/2024 Give provider list of wound care supplies 12/21/2024 Refill wound care supplies 12/21/2024 Send Wound Care Supplies 12/21/2024 Give provider list of wound care supplies 12/21/2024 Refill wound care supplies 12/21/2024 Send Wound Care Supplies 12/21/2024 Provide caregiver with wound care procedure information 12/21/2024 Educate caregiver on proper wound care procedures 12/21/2024 Document patient eligibility for HBO 12/21/2024 Assess patient for HBO treatment 12/21/2024 Record wound depth 12/21/2024 Record total wound area 12/21/2024 Measure wound progress 12/21/2024 Related Goals and Interventions Goal Associated Intervent ions Decrease Wound Volume by X% by date (in notes) Give provider list of wound care supplie s; Refill wound care supplies; Send Wound Care Supplies; Provide caregiver with wound care procedure information; Educate caregiver on proper wound care procedures; Document patient eligibility for HBO; Assess patient for HBO treatment; Record wound depth; Record total wound area; Measure wound progress Patient and Caregiver Unders tand Wound Care Education Provide caregiver with wound care proced ure information; Educate caregiver on proper wound care procedures; Give provider list of wound care supplies; Refill wound care supplies; Send Wound Care Supplies Wound volume breakdown reduc ed by X% by week 4 Provide caregiver with wound care proced ure information; Educate caregiver on proper wound care procedures; Document patient eligibility for HBO; Assess patient for HBO treatment; Record wound depth; Record total wound area; Measure wound progress Wound volume breakdown reduc ed by X% by week 8 Provide caregiver with wound care proced ure information; Educate caregiver on proper wound care procedures; Document patient eligibility for HBO; Assess patient for HBO treatment; Record wound depth; Record total wound area; Measure wound progress Wound volume breakdown reduc ed by X% by week 12 Provide caregiver with wound care proced ure information; Educate caregiver on proper wound care procedures; Document patient eligibility for HBO; Assess patient for HBO treatment; Record wound depth; Record total wound area; Measure wound progress Quit using tobacco (cigarett es, smokeless, etc) Create an action plan identifying patien t strengths and supports; Establish quit date with patient; Discuss prior cessation attempts; Discuss preferred method of cessation and plan; Discuss barriers to smoking cessation; Discuss smoking status with patient Reduce tobacco use (cigarett es, smokeless, etc) Create an action plan identifying patien t strengths and supports; Establish quit date with patient; Discuss prior cessation attempts; Discuss preferred method of cessation and plan; Discuss barriers to smoking cessation; Discuss smoking status with patient Decrease Wound Volume by X% by date (in notes) Give provider list of wound care supplie s; Refill wound care supplies; Send Wound Care Supplies; Provide caregiver with wound care procedure information; Educate caregiver on proper wound care procedures; Document patient eligibility for HBO; Assess patient for HBO treatment; Record wound depth; Record total wound area; Measure wound progress Patient and Caregiver Unders tand Wound Care Education Provide caregiver with wound care proced ure information; Educate caregiver on proper wound care procedures; Give provider list of wound care supplies; Refill wound care supplies; Send Wound Care Supplies
--- OUTSIDE RECORDS SUMMARY | 2024-12-27 20:30 | XMS_ITS | Encounter Summary ---
Author Organization [employer] Address [address] [facility] [address] [place] [address] Care Team Providers Care Early Learning Teacher Name Role Phone Linh Cook MD Primary Care Provide r Reason for Visit * Reason Comments Med Refill Encounter Details Date Type Department Care Team ([facility] st Contact Info) Description 01/09/2024 Refill [facility] MEDICINE 230 [place], [place] [phone] Linh Cook MD 230 [place] [address] Social History Tobacco Use Types Packs/Day Years [...] Description 02/15/2025 10:45 AM EST Office Visit [facility] MEDICINE [address] [place] [phone] Linh Cook MD 230 [place] [address] documented as of this encounter Visit Diagnoses Not on filedocumented in this encounter Additional Health Concerns Assessment Noted Time PHQ-9 Depression Total Score: 13 024 2:02 PM EDT documented as of this encounter Care Teams Early Learning Teacher Relationship Specialty Start Date End Date Linh Cook MD [address] [place] [address] PCP - General Family Medicine 06/22/18 [facility] 06/10/23 documented as of this encounter
--- OUTSIDE RECORDS SUMMARY | 2024-12-27 20:30 | XMS_ITS | Encounter Summary ---
Author Organization [employer] Address [address] [place] [address] Care Team Providers Care E Tailer Name Role Phone Linh Cook MD Primary Care Provide r Encounter Details Date Type Department Care Team (Late st Contact Info) Description 07/27/2024 Lab Requisition [facility] - Main Lab 299 [facility] [place] [address] Reji Sterling MD [address] [place] [address] 204 [place], [address] Gout, unspecified Social History Tobacco Use [...] LAB CHEMISTRY METHOD 07/27/2024 10:30 AM EDT [facility] Blood Venous blood specimen / Unknown Venipuncture / Unknown 07/27/2024 5:23 AM EDT 07/27/2024 9:29 AM EDT us Reji Sterling MD LAB BLOOD ORDERABLES Final Resul t [facility] [address] [place] [address], documented in this encounter Visit Diagnoses Diagnosis [...] documented as of this encounter Care Teams E Tailer Relationship Specialty Start Date End Date Linh Cook MD [address] [address] PCP - General Internal Medicine 11/05/20 documented as of this encounter
--- OUTSIDE RECORDS SUMMARY | 2024-12-27 20:30 | XMS_ITS | Encounter Summary ---
Author Organization [employer] Address [address] [facility] 7t [place] [address] Care Team Providers Care Warehouse Order Puller Name Role Phone Linh Cook MD Primary Care Provide r Reason for Visit * Reason Comments Med Refill Encounter Details Date Type Department Care Team ([facility] st Contact Info) Description 01/26/2023 Refill [facility] MEDICINE 230 [place], [place] [phone] Linh Cook MD 230 [place] [address] Diabetic polyneuropathy associated with type 2 diabetes [...] Description 02/15/2025 10:45 AM EST Office Visit [facility] MEDICINE 230 [place] [address] Linh Cook MD 230 [place] [address] documented as of this encounter Visit Diagnoses Diagnosis Diabetic polyneuropathy associated with type 2 diabetes mellitus (HCC) documented in this encounter Additional Health Concerns Assessment Noted Time PHQ-9 Depression Total Score: 8 06/26/19 23 3:29 PM EDT documented as of this encounter Care Teams Warehouse Order Puller Relationship Specialty Start Date End Date Linh Cook MD [address] [place] [id number] PCP - General Family Medicine 06/22/18 [facility] 06/10/23 documented as of this encounter
--- OUTSIDE RECORDS SUMMARY | 2024-12-27 20:30 | XMS_ITS | Encounter Summary ---
Author Organization [employer] Address [address] [facility] 7t [place] [address] Care Team Providers Care Supervisor Insulation Name Role Phone Linh Cook MD Primary Care Provide r Reason for Visit * Reason Comments Med Refill Encounter Details Date Type Department Care Team ([facility] st Contact Info) Description 01/20/2024 Refill [facility] MEDICINE 230 [place], [place] [phone] Linh Cook MD 230 [place] [address] Social History Tobacco Use Types Packs/Day Years [...] 02/15/2025 10:45 AM EST Office Visit [facility] MEDICINE [address] [place] [phone] Linh Cook MD 230 [place] [address] documented as of this encounter Visit Diagnoses Not on filedocumented in this encounter Additional Health Concerns Assessment Noted Time PHQ-9 Depression Total Score: 13 024 2:02 PM EDT documented as of this encounter Care Teams Supervisor Insulation Relationship Specialty Start Date End Date Linh Cook MD [address] [place] [phone] PCP - General Family Medicine 06/22/18 [facility] 06/10/23 documented as of this encounter
--- OUTSIDE RECORDS SUMMARY | 2024-12-27 20:30 | XMS_ITS | Encounter Summary ---
Author Organization [employer] Address [address] [place] [address] Care Team Providers Care Hemodialysis Patient Care Specialist Name Role Phone Linh Cook MD Primary Care Provide r Encounter Details Date Type Department Care Team (Late st Contact Info) Description 07/01/2024 Lab Requisition [facility] - Main Lab 299 [facility] [place] [address] Reji Sterling MD [address] [place] [address] 204 [place], [address] Cellulitis of left upper limb; Acute [...] left upper limb Acute kidney failure, unspecified ([facility] V24) COMPREHENSIVE METABOLIC PANEL Routine 07/01/2024 4:58 AM EDT Cellulitis of left upper limb Acute kidney failure, unspecified ([facility] V24) documented in this encounter Results * (ABNORMAL) Comprehensive metabolic panel (07/01/2024 4:58 AM EDT) Sodium 141 133 - 145 mmol/L LAB CHEMISTRY METHOD 07/01/2024 11:29 AM [facility] Potassium 5.4 3.5 - 5.5 mmol/L LAB CHEMISTRY METHOD 07/01/2024 11:29 AM [facility] Chloride 106 96 - 110 mmol/L LAB CHEMISTRY METHOD 07/01/2024 11:29 AM [facility] CO2 33(H) 21 - 32 mmol/L LAB CHEMISTRY METHOD 07/01/2024 11:29 AM [facility] Anion Gap 2(L) 3 - 11 LAB CHEMISTRY METHOD 07/01/2024 11:29 AM [facility] Glucose 167(H) 70 - 100 mg/dL LAB CHEMISTRY METHOD 07/01/2024 11:29 AM [facility] BUN 23 5 - 25 mg/dL LAB CHEMISTRY METHOD 07/01/2024 11:29 AM [facility] Creatinine 0.97 0.70 - 1.30 mg/dL LAB CHEMISTRY METHOD 07/01/2024 11:29 AM [facility] eGFR 86 >=60 mL/min/1. 73m2 LAB CHEMISTRY METHOD 07/01/2024 11:29 AM [facility] Comment:Calculation based on the Chronic Kidney Disease Epidemiology Collaboration (CKD-EPI) equation refit without adjustment for race. BUN/Creatinine Ratio 23.7 LAB CHEMISTRY METHOD 07/01/2024 11:29 AM [facility] Calcium 8.1(L) 8.5 - 10.5 mg/dL LAB CHEMISTRY METHOD 07/01/2024 11:29 AM [facility] AST (SGOT) 35 10 - 42 unit/L LAB CHEMISTRY METHOD 07/01/2024 11:29 AM [facility] ALT (SGPT) 27 10 - 60 unit/L LAB CHEMISTRY METHOD 07/01/2024 11:29 AM [facility] Alkaline Phosphatase 94 42 - 121 unit/L LAB CHEMISTRY METHOD 07/01/2024 11:29 AM [facility] Total Protein 6.2 6.0 - 8.0 g/dL LAB CHEMISTRY METHOD 07/01/2024 11:29 AM [facility] Albumin 2.5(L) 3.2 - 5.0 g/dL LAB CHEMISTRY METHOD 07/01/2024 11:29 AM [facility] Total Bilirubin 0.4 0.0 - 1.4 mg/dL LAB CHEMISTRY METHOD 07/01/2024 11:29 AM [facility] Blood Venous blood specimen / Unknown Venipuncture / Unknown 07/01/2024 4:58 AM EDT 07/01/2024 8:34 AM EDT us Reji Sterling MD LAB BLOOD ORDERABLES Final Resul t [facility] [address] [place] [address], [place] [phone] * (ABNORMAL) Complete blood count (07/01/2024 4:58 AM EDT) WBC 8.4 4.8 - 10.8 K/mcL LAB HEMETOLOGY METHOD 07/01/2024 9:19 AM EDT [facility] RBC 4.20(L) 4.50 - 5.50 M/mcL LAB HEMETOLOGY METHOD 07/01/2024 9:19 AM [facility] Hemoglobin 12.3(L) 13.5 - 17.5 g/dL LAB HEMETOLOGY METHOD 07/01/2024 9:19 AM [facility] Hematocrit 40.3(L) 42.0 - 54.0 % LAB HEMETOLOGY METHOD 07/01/2024 9:19 AM [facility] MCV 95.3 79.0 - 98.0 FL LAB HEMETOLOGY METHOD 07/01/2024 9:19 AM [facility] MCH 29.1 27.0 - 32.0 pcg LAB HEMETOLOGY METHOD 07/01/2024 9:19 AM [facility] MCHC 30.5(L) 32.0 - 37.0 g/dL LAB HEMETOLOGY METHOD 07/01/2024 9:19 AM [facility] RDW 13.6 11.0 - 15.0 % LAB HEMETOLOGY METHOD 07/01/2024 9:19 AM [facility] Platelets 416(H) 130 - 400 K/mcL LAB HEMETOLOGY METHOD 07/01/2024 9:19 AM EDT [facility] MPV 9.4 7.0 - 11.0 FL LAB HEMETOLOGY METHOD 07/01/2024 9:19 AM EDT [facility] NRBC 0.0 <1.0 % LAB HEMETOLOGY METHOD 07/01/2024 9:19 AM EDT [facility] NRBC Absolute 0.00 <0.10 K/mcL LAB HEMETOLOGY METHOD 07/01/2024 9:19 AM EDT [facility] Blood Venous blood specimen / Unknown Venipuncture / Unknown 07/01/2024 4:58 AM EDT 07/01/2024 8:34 AM EDT us Reji Sterling MD LAB BLOOD ORDERABLES Final Resul t [facility] [address] [place] [address], documented in this encounter Visit Diagnoses Diagnosis [...] documented as of this encounter Care Teams Hemodialysis Patient Care Specialist Relationship Specialty Start Date End Date Linh Cook MD [address] [place] [phone] PCP - General Internal Medicine 11/05/20 documented as of this encounter
--- OUTSIDE RECORDS SUMMARY | 2024-12-27 20:30 | XMS_ITS | Encounter Summary ---
Author Organization [employer] Address [address] [facility] 7t [place] [address] Care Team Providers Care Flame Hardening Machine Setter Name Role Phone Linh Cook MD Primary Care Provide r Reason for Visit * Reason Onset Date Comments verbal order 06/03/2024 Encounter Details Date Type Department Care Team ([facility] st Contact Info) Description 06/03/2024 Telephone [facility] [address] [place], [place] [phone] Linh Cook MD [address] [place] [address] verbal order Social History Tobacco Use Types [...] PM EDT TC placed to Mayra from [facility] [phone] regarding below message. RN left VM for Ileana to return a call to the Red team nurses. Mayra to F/U PRN. * Telephone Encounter - Mayra Duarte - 06/03/2024 2:04 PM EDT TC from Mayra with [facility] requesting verbal order for to continue skill nursing. documented in this encounter Plan of Treatment Upcoming Encounters Date Type Department Care Team (Late st Contact Info) Description 02/15/2025 10:45 AM EST Office Visit [facility] [address] [place], [place] [phone] Linh Cook MD [address] [place] [address] documented as of this encounter Visit Diagnoses Not on filedocumented in this encounter Additional Health Concerns Assessment Noted Time PHQ-9 Depression Total Score: 13 024 2:02 PM EDT documented as of this encounter Care Teams Flame Hardening Machine Setter Relationship Specialty Start Date End Date Linh Cook MD [address] [place] [address] PCP - General Family Medicine 06/22/18 [facility] 06/10/23 documented as of this encounter
--- OUTSIDE RECORDS SUMMARY | 2024-12-27 20:30 | XMS_ITS | Encounter Summary ---
Author Organization [employer] Address [address] [facility] 7[address] [place] [address] Care Team Providers Care Foam Gun Operator Name Role Phone Linh Cook MD Primary Care Provide r Reason for Visit * Reason Onset Date Comments Chart Prep 12/26/2024 Encounter Details Date Type Department Care Team ([facility] st Contact Info) Description 12/26/2024 Telephone [facility] [address] [place], [place] [phone] Linh Cook MD [address] [place] [address] Chart Prep Social History Tobacco Use Types Packs/Day Years [...] encounter Miscellaneous Notes * Telephone Encounter - Angely Tyler [place] - 12/26/2024 3:09 PM EDT Chart Prep Labs: done 12/11/24 Images: done 12/08/24 Referrals: orthopedic surgeon, A letter was mailed to patient with appointment details. Physical therapy Pt requesting home PT, if this is not an option OP PT is OK. I did notify pt home PT may not be possible Vaccines due: Covid, Flu, Hep A, and Zoster Screenings: colonoscopy, eye exam, foot exam, and Lipid panel, urine protein Overdue care gaps: Not applicable documented in this encounter Plan of Treatment Upcoming Encounters Date Type Department Care Team (Late st Contact Info) Description 02/15/2025 10:45 AM EST Office Visit [facility] [address] [place] [address] Linh Cook MD [address] [place] [address] documented as of this encounter Visit Diagnoses Not on filedocumented in this encounter Additional Health Concerns Assessment Noted Time PHQ-9 Depression Total Score: 13 025 1:43 PM EDT documented as of this encounter Care Teams Foam Gun Operator Relationship Specialty Start Date End Date Linh Cook MD [address] [place] [address] PCP - General Family Medicine 06/22/18 [facility] 06/10/23 documented as of this encounter
--- OUTSIDE RECORDS SUMMARY | 2024-12-27 20:30 | XMS_ITS | Data Portability ---
Author Organization [facility] Address [address] [place] [phone] Care Team Providers Care Anatomic Pathology Manager Name Role Phone Unavailable OTHER HIM CCA OTHER Assessment Encounter Date Assessment Date Assessment LastModified by Organization Details LastModified Time 09/02/2024 09/02/2024 I provided real -time medical direction via phone for this encounter, and was available for additional phone based assistance as needed. I have reviewed and agree with the Assessment and Plan as documented by the Bridge Construction Inspector. We discussed the diagnostic uncertainty of home visits and the risk associated with this.. The patient given the opportunity to ask questions. [email or web address] Not available 09/02/2024 15:26:11 Plan of Treatment Reminders Order Date Submit Date Provider Last Modified By Organization Details Last Modified Time Details Appointments None recorde d. Lab glucose , fingers tick, blood 025 09/03/19 25 [email or web address] [facility], [address] [place] [address], [phone] 15:23:46 Referral None recorde d. Procedures None recorde d. Surgeries None recorde d. Imaging None recorde d. Medication Orders None recorde d. Patient TargetsNo targets recorded. Patient InstructionsNo instructions recorded. Reason for Referral None Reported. Results Created Date Observation Date Name Description Value Unit Range Abnormal Flag Note LastModifiedBy Organization Detail LastModifiedTime 09/03/19 25 09/02/2024 gluco se, finge rstic k, blood Blood Glucose: mg/dl 276 Not Available [address], [phone] 09/02/2024 15:23:32 Result Notes None recorded. Medical Equipment None Reported. Allergies Allergen ID Allergen Name Allergen Category Reaction Reaction Severity Criticality Documentation Date Start Date Code Code System Note Provider Name and Address Organization Details Recorded Time 01627 lisinopri l medicatio n Not available Not available Not available 09/02/2024 69643 RxNorm Not Available [employer] 13:12:20 Medications Name Sig Start Date Stop Date Status Note LastModified by Organization Details LastModified Time torsemide 20 mg tablet TAKE 3 TABLETS BY MOUTH TWO TIMES A DAY active Not Available Not Available Not Available Lantus U-100 Insulin 100 unit/mL subcutaneous solution INJECT 50 UNITS SUBCUTANEOU SLY 2 TIMES A DAY active Not Available Not Available No t Available spironolacto ne 25 mg tablet TAKE 1/2 (HALF) TABLET BY MOUTH EVERY DAY active Not Available Not Available No t Available insulin lispro (U-100) 100 unit/mL subcutaneous solution INJECT 19 TO 34 UNITS SUBCUTANEOU SLY 3 TIMES A DAY BEFORE MEALS ACCORDING TO SLIDING SCALE COMMENTS active Not Available Not Available No t Available Jardiance 10 mg tablet TAKE 1 TABLET BY MOUTH EVERY MORNING active Not Available Not Available No t Available Vitals Date Recorded Body weight Body mass index (BMI) Provider Name and Address Organization Details Last Updated DateTime 09/02/2024 124543.63 g 42 kg/m2 Debbie Medellin MD [address] [place] [address],[address], [place], [phone], [facility] [employer] [facility] 09/02/2024 16:18:01 Date Recorded Heart rate Oxygen saturation Oxygen saturation in Arterial blood by Pulse oximetry Body temperature Respiratory rate Body height Systolic And Diastolic Provider Name and Address Organization Details Last Updated DateTime 74 /min 94 % 94 % 98 [degF] 14 /min 182.88 cm 146/86 mm[Hg] Not Available [employer] 15:11:44 Social History None recorded. Functional Status None recorded. Mental Status None recorded. Family History Nothing Reported. Medical History No medical history recorded. Past Encounters Encounter ID Performer Location Encounter Start Date Encounter Closed Date Diagnosis/Indication Diagnosis SNOMED-CT Code Diagnosis ICD10 Code Diagnosis IMO Codes Diagnosis Note [id number] Debbie Medellin MD [facility] [address] [phone] 09/02/2024 15:11:37 09/03/2024 21:16:40 Pain of left knee joint 4034922820 26346 M25.562 [id number] Cannot r/o infection vs gout- d/w patient at length. Advised the need for evaluation in the emergency room as he needs lab work imaging and a possible knee aspirate which we cannot do in the home and do not want to miss an acute reoccurren ce of an infection. The other issue is pain management which he is requesting . Advised we cannot prescribe controlled substances he is already on oxycodone and gabapentin . With the patient with a recent LUCA who is anticoagul ated p.o. NSAIDs or parenteral ketorolac are contraindi cated and the only other medication we carry is p.o. Tylenol which due to his cirrhosis he can only take some of them he does not feel that would control his pain. He declined transfer to the emergency room at this point stating he needs to take care of a few things around his house but he will go by ambulance later this evening. I expressed the importance of him going for proper workup to evaluate his knee and the risk of untreated infection. He verbalized understand ing and reaffirmed that he would go later. Report called to ED expect at [facility] Health Concerns Section Related Observation LastModified by Organization Detai ls LastModified Time None Recorded Concern Status LastModified by Organization Details LastModified Time None Recorded Advance Directives Directive None Recorded Payers Insurance Date Sequence Insurance Name Policy Number Policy Womack Covered Member ID Womack Member ID Guarantor Name 09/02/2024 1 [facility] - DOS ON OR AFTER 2022 - DUAL ELIGIBLE - LONG TERM OPTIONS AND ONE CARE (MEDICARE REPLACEMENT/ADV ANTAGE - HMO) Ramiro Miramontes [id number] Ramiro Miramontes Notes Date Note Type Note Provider Name and Address Organization Details Recorded Time 09/02/2024 text/html ROS as noted in the HPI HPI: Patient recently at [facility] 06/06/24-06/30/24 and transferred to [facility] 06/30-08/30. [facility] and [facility] notes attached. Patient currently reporting 10/10 pain to L knee (had washout completed on 06/22 in the OR-reference notes attached). Patient reports medication is not helping, meds reduce pain to 8/10. Patient was unable to tolerate PT at home today. Patient is using urinals and only ambulating to bathroom PRN BM's. Patient is refusing ED despite PCP recommendation. Patient reports he is home alone. Patient wants to be evaluated at home prior to seeking ED due to recently being admitted for approx 1 month at [facility] and 2 months at rehab. Please evaluate patient; he is aware he may be advised to seek ED. .................... .................... .................... .................... .................... .................... .................... . CRC Nurse Triage Notes (Anna Sloan): Reason For Request: Pain Chief Complaints: Extremity Pain PMH: Diabetes Mellitus Type 2, Cirrhosis, Amputation, Gout, Congestive Heart Failure PMH Reviewed at 09/02/2024 13:12 Allergies Reviewed at 09/02/2024 - 13:12 Comments: HPI reviewed Bridge Construction Inspector Organization Information for Elmer Vera Maryan LUTZJefrybobby Legal Name: [facility] Address: [address] [place] [address], Insurance Claims Adjuster: Patrice ROCKIA No.: [id number] Bridge Construction Inspector POC Test Results from [facility] Blood Glucose Measurement (15:07:27) Blood Glucose: 276 mg/dL .................... .................... .................... .................... .................... .................... .................... . Bridge Construction Inspector Note From Elmer Vera: Patient alert and oriented seated in bed. Patient complains of left knee pain after infection and procedure times months. Patient reports he was inpatient times three months returned home times four days ago. Patient reports no change in condition, states it is very difficult to move around apartment, patient has limited his movements to one trip to the bathroom per day is using a urinal. Patient reports no MD OPHTHALMOLOGIST services currently engaged. Patient denies any other pain or complaints. Patient denies chest pain, nausea, vomiting, diarrhea, weakness, dizziness, or any other pain or complains. Patient, pink, warm, dry, positive full sentences, negative increased work of breathing, abdomen, soft, nontender, left knee, slightly swollen, red, tender to touch with some extra heat. Limited range of motion Skin appears intact, no edema noted. Good CSM in left leg. [facility] advises patient to be transported to hospital, patient agrees. Patient reports he will call [phone] in a few hours after attending to personal matters. Patient advised to be transported now, a discussed risks of waiting. Red flags, patient education discussed. [facility] Lab Orders: glucose, fingerstick, blood: Performed .................... .................... .................... .................... .................... .................... .................... . [facility] Consulted: Debbie Medellin .................... .................... .................... .................... .................... .................... .................... . Disposition: Fulfilled SEGMD: Patient was at [facility] for 1 month and then rehab for 2 months. He developed septic arthritis of his left knee requiring an intraoperative washout and antibiotic treatment. 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 He is currently taking oxycodone and gabapentin for his left knee pain which he states is not helping he is not able to ambulate even around his apartment getting to the kitchen or the bathroom is exceedingly difficult. He denies fevers, chills, chest pain, shortness of breath. His recent admission was complicated by an LUCA with a BUN of 35 and a GFR of 77 on 07/12 record review reveals a BUN of 25 and a creatinine of 1 with an H&H of 12.2/40.9. Debbie Medellin MD [address] [facility],[address], [place], [phone], [employer] 09/02/2024 16:22:07
--- OUTSIDE RECORDS SUMMARY | 2024-12-27 20:30 | XMS_ITS | Encounter Summary ---
Author Organization [employer] Address [address] [place] [address] [address] [place] [address] Care Team Providers Care Balance Staff Inspector Name Role Phone Linh Cook MD Primary Care Provide r Encounter Details Date Type Department Care Team (Late st Contact Info) Description 03/26/2022 Orders Only [facility] [address] [place] [address] [phone] Risa Leiva MD [address] [place] [address] [phone] Diabetic peripheral neuropathy (CMS/HCC) (Primary Dx) Social [...] Description 02/15/2025 10:45 AM EST Office Visit [facility] [address] [place] [address] [phone] Linh Cook MD [address] [place], [place] [phone] documented as of this encounter Procedures Procedure [...] 12:20 PM EDT) Creatinine, Urine 40.68 mg/dL [facility] Microalbumin Urine 38.0 mg/L [facility] Microalbum Creatinine Ratio Ur 93.4 ug/mg cr [facility] Comment:Albumin/Creatinine R atio Reference Ranges: Normal: < 30 ug/mg creatinine Microalbuminuria: 30 - 300 ug/mg creatinineClinical Albuminuria: > 300 ug/mg creatinine 10/01/2022 12:2 0 PM EDT 10/01/2022 12:54 PM EDT us Linh Ramos MD LAB URINE ORDERABLES Final Result [facility] [address], [place] [phone] * (ABNORMAL) Glucose, Whole Blood (07/02/2022 11:01 AM EDT) Glucose, Whole Blood 180(H) 60 - 115 mg/dL [facility] Comment:METER #: [id number] Testing performed in the Endocrinology Department [address] , [address], [facility]. 07/02/2022 11:0 1 AM EDT 07/02/2022 11:06 AM EDT [facility] External Provider LAB BLO OD ORDERABLES Final Result Performing Organization Address [facility] Phone Number [facility] [address] [place] [phone] * Albumin, Random Urine W/Creatinine (06/30/2022 11:32 AM EDT) Creatinine, Urine 48.01 mg/dL [facility] Microalbumin Urine 29.0 mg/L [facility] Microalbum Creatinine Ratio Ur 60.4 ug/mg cr [facility] Comment:Albumin/Creatinine R atio Reference Ranges: Normal: < 30 ug/mg creatinine Microalbuminuria: 30 - 300 ug/mg creatinineClinical Albuminuria: > 300 ug/mg creatinine 06/30/2022 11:3 2 AM EDT 06/30/2022 1:45 PM EDT [facility] External Provider LAB URI NE ORDERABLES Final Result Performing Organization Address [facility] Phone Number [facility] [address] [place] [phone] * Lipid Panel, Standard (06/30/2022 11:31 AM EDT) Triglycerides 132 mg/dL [facility] Comment:Desirable Triglyceri de: less than 150 mg/dLBorderline High Triglyceride 150-199 mg/dLHigh Triglyceride: 200-499 mg/dLVery High Triglyceride: greater than or equal to 5OO mg/dL Cholesterol 174 mg/dL [facility] Comment:Desirable Cholestero l: less than 200 mg/dLBorderline High Cholesterol: 200-239 mg/dLHigh Cholesterol: greater than 239 mg/dL LDL Cholesterol Calculated 111 mg/dl [facility] Comment:Desirable LDL: less than 100 mg/dLNear Optimal/Above Optimal LDL: 110- 129 mg/dLBorderline High LDL: 130-159 mg/dLHigh LDL: 160-189 mg/dLVery High LDL: greater than or equal to 190 mg/dL HDL Cholesterol 37 mg/dL [facility] Comment:Desirable HDL: great er than 40 mg/dL Note: This HDL assay may give artificially low results in patients with liver disease. 06/30/2022 11:3 1 AM EDT 06/30/2022 11:31 AM EDT [facility] External Provider LAB BLO OD ORDERABLES Final Result [facility] [address] [place] [phone] * (ABNORMAL) Basic Metabolic Panel (06/30/2022 11:31 AM EDT) Sodium 145 135 - 145 mmol/L [facility] Potassium 3.8 3.3 - 5.1 mmol/L [facility] Chloride 104 96 - 108 mmol/L [facility] Carbon Dioxide 31(H) 22 - 29 mmol/L [facility] Anion Gap 14 12 - 20 [facility] Urea Nitrogen (BUN) 21(H) 9 - 16 mg/dL [facility] Creatinine, Serum 1.27 0.5 - 1.4 mg/dL [facility] Estimated Glomerular Filt Rate 57 [facility] Comment:NOTE: For -Am erican individuals, multiply the result by 1.210.Chronic Kidney Disease: Estimated GFR < 60 mL/min/1.67h8Bljnjb Kidney Disease: Estimated GFR < 15 mL/min/1.73m2 Glucose 121(H) 60 - 115 mg/dL [facility] Calcium 8.4 8.4 - 10.2 mg/dL [facility] 06/30/2022 11:3 1 AM EDT 06/30/2022 11:31 AM EDT [facility] External Provider LAB BLO OD ORDERABLES Final Result Performing Organization Address [facility] Co de Phone Number [facility] [address] [place] [phone] [phone] * (ABNORMAL) Glucose, Whole Blood (04/02/2022 12:44 PM EST) Glucose, Whole Blood 411(HH) 60 - 115 mg/dL [facility] Comment:METER #: [id number] 5Testing performed in the Endocrinology Department [address], [address], [facility]. 04/02/2022 12:4 4 PM EST 04/02/2022 12:49 PM EST [facility] External Provider LAB BLO OD ORDERABLES Final Result Performing Organization Address [facility] Co de Phone Number [facility] [address] [place] [phone] documented in this encounter Visit Diagnoses Diagnosis Diabetic peripheral neuropathy (HCC)- Primary Type II or unspecified type diabetes mellitus with neurological manifestations, not stated as uncontrolled documented in this encounter Care Teams Balance Staff Inspector Relationship Specialty Start Date End Date Linh Cook MD [address] [place] [phone] PCP - General Family Medicine 06/22/18 [facility] 06/10/23 documented as of this encounter
--- OUTSIDE RECORDS SUMMARY | 2024-12-27 20:30 | XMS_ITS | Clinical Summary ---
Author Organization [facility] Address [address] [place] [address] Phone Care Team Providers Care Managing Editor Name Role Phone Linh Cook MD Primary Care Provide r Allergies Active Allergy Reactions Criticality Noted Date Comments Lisinopril Cough,Nausea Only Medium 01/20/2018 Mild cough cough Medications gabapentin (NEURONTIN) 800 mg tablet 1 tablet (800 mg total) 3 (three) times a day. 11/29/19 25 Active allopurinoL (ZYLOPRIM) 100 mg tablet Take 1 tablet (100 mg total) by mouth 1 (one) time each day. 06/13/19 24 Active atorvastatin (LIPITOR) 40 mg tablet Take 1 tablet (40 mg total) by mouth 1 (one) time each day in the morning. 02/02/20 18 Active bumetanide (BUMEX) 2 mg tablet Take 1 tablet (2 mg total) by mouth daily. 09/13/19 25 Active colchicine (COLCRYS) 0.6 mg tablet Take 1 tablet (0.6 mg total) by mouth 1 (one) time each day. 01/19/20 24 Active empagliflozin (JARDIANCE) 10 mg tablet Take 1 tablet (10 mg total) by mouth 1 (one) time each day in the morning. 06/16/19 24 Active metOLazone (ZAROXOLYN) 5 mg tablet Take 1 tablet (5 mg total) by mouth 3 (three) times a week. 11/15/19 25 Active Toprol XL 50 mg 24 hr tablet Take 1 tablet (50 mg total) by mouth 1 (one) time each day. 09/13/19 25 Active rivaroxaban (XARELTO) 20 mg tablet Take 1 tablet (20 mg total) by mouth 1 (one) time each day with dinner. 03/19/19 24 Active sacubitriL-valsa rtan (ENTRESTO) 49-51 mg per tablet Take 1 tablet by mouth 2 (two) times a day. 11/29/19 Active Mounjaro 7.5 mg/0.5 mL injection Inject 0.5 mL (7.5 mg total) under the skin every 7 (seven) days. 11/29/19 Active HumuLIN R U-500, Conc, Insulin 500 unit/mL CONCENTRATED injection Inject 40 Units under the skin 3 (three) times a day before meals. 10/19/19 Active sulfamethoxazole -trimethoprim (Bactrim DS) 800-160 mg per tablet Take 1 tablet by mouth 2 (two) times a day for 5 days. 10 each 11/23/19 25 025 cephalexin (KEFLEX) 500 mg capsule Take 1 capsule (500 mg total) by mouth 3 (three) times a day for 5 days. 15 each 11/23/19 25 025 Lantus Solostar U-100 Insulin 100 unit/mL (3 mL) injection pen Inject 50 Units under the skin daily. 10/05/19 025 Discontinu ed(Discont inued by another clinician) amoxicillin-clav ulanate (AUGMENTIN) 875-125 mg per tablet Take 1 tablet by mouth 2 (two) times a day for 7 days. 14 each 12/12/19 25 doxycycline (VIBRAMYCIN) 100 mg capsule Take 1 capsule (100 mg total) by mouth 2 (two) times a day for 7 days. Take with at least 8 ounces (large glass) of water, do not lie down for 30 minutes after. Administer 2 hours before or after multivitamins, antacids, or other products containing polyvalent cations (i.e., calcium, iron, magnesium, selenium, zinc). 14 each 12/12/19 25 025 Active Problems Problem Noted Date Diagnosed Date Type 2 diabetes mellitus wit h other skin ulcer (CODE) ([facility] V24, 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 Cardiomyopathy, nonischemic ([facility] V24, CMS/ C V28) 04/01/2024 Assessment & Plan (04/01/2024 6:56 PM EST): Hold all cardiomyopathy meds due to hypotension. IV fluid bolus trial as above. It is possible that this was related to escalation of outpatient diuretic therapy. AICD (automatic cardioverter/defibrillator) pres ent 04/01/2024 Assessment & Plan (04/01/2024 7:04 PM EST): For completeness, can interrogate the device at [facility]. 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 Paroxysmal atrial flutter (CMS/HCC V24, CMS/HCC V28) 04/01/2024 Assessment & Plan (04/01/2024 7:05 PM EST): Would hold Xarelto for now in case the patient needs a right heart cath. Can be resumed at [facility] if it is determined that he does not need any procedures. Resolved Problems Problem Noted Date Diagnosed Date Resolved Date LUCA (acute kidney injury) ([facility] V24) 12/08/2024 12/11/2024 Encounters Date Type Department Care Team Description 12/21/2024 12:45 PM EDT Office Visit [facility] [address] [place] [phone] Tim Mclaughlin PA Type 2 diabetes mellitus with other skin ulcer (CODE) ([facility] V24, [facility] V28) (Primary Dx); Non-pressure chronic ulcer of other part of right lower leg with fat layer exposed ([facility] V24, [facility] V28) 12/08/2024 9:51 AM EDT - 12/11/2024 12:18 PM EDT Hospital Encounter [facility] [address] [place] [phone] Annel Monteiro MD Goebel, Mathew, MD Flores, Carlos M, MD Japaridze, Anna, MD LUCA (acute kidney injury) ([facility] V24) (Primary Dx); Cellulitis, unspecified cellulitis site; Diabetic ulcer of ankle ([facility] V24, [facility] V28); Hyponatremia; Cellulitis of leg, right Discharge Disposition: Home-Health Care [facility] 11/22/2024 2:33 AM EDT - 11/22/2024 4:14 AM EDT Emergency [facility] Emergency [address] [place] [phone] Nehemias De La Cruz MD Wound cellulitis (Primary Dx) Discharge Disposition: Home or Self Care 10/26/2024 11:18 PM EDT - 10/27/2024 1:55 AM EDT Emergency [facility] [address] [place] [phone] Cellulitis of fifth toe (Primary Dx) Discharge Disposition: Home or Self Care from Last 3 Months Surgical History Surgery Date Site/Laterality Comments OTHER SURGICAL HISTORY 01/13/2018 Left PROCEDURE: AR AMPUTATION TOE INTERPHALANGEAL JOINT; COMMENT: 5th toe proximal phlagectomy, debridement skin & subcutaneous tissue Medical History Medical History Date Comments History of partial amputatio n of toe ([facility] V24) 01/21/2018 DX:History of partial amputa tion of toe ([facility]); COMMENT: Left 5th toe- proximal phlangectomy DM (diabetes mellitus), type 2 with neurological complications ([facility] V24, [facility] V28) 01/21/2018 DX:DM (diabetes mellitus), t ype 2 with neurological complications ([facility]) Diabetic ulcer of toe ([facility] V24, [facility] V28) 01/21/2018 DX:Diabetic ulcer of toe ([facility]); COMMENT: Left 5th toe Hypertension 01/21/2018 DX:Hypertension CHF (congestive heart failur e) ([facility] V24, [facility] V28) 01/21/2018 DX:CHF (congestive heart fa ilure) ([facility]) History of substance abuse ( [facility] V24, [facility] V28) 01/21/2018 DX:History of substance abus e ([facility]) DM (diabetes mellitus) with peripheral vascular complication ([facility] V24, [facility] V28) 01/21/2018 DX:DM (diabetes mellitus) w ith peripheral vascular complication ([facility]) Osteomyelitis ([facility] V24, [facility] V28) 01/21/2018 DX:Osteomyelitis ([facility]); COMM ENT: Left 5th toe in setting of diabetic infection -Staph aureus & Group B Strep Diabetic neuropathy ([facility] V24, [facility] V28) 01/21/2018 DX:Diabetic neuropathy ([facility]) ; COMMENT: feet Family History Medical History [...] Mass Index 43.93 12/21/2024 12:58 PM EDT Plan of Treatment Health Maintenance Due Date Last Done Comments Colorectal Cancer Screening: Colonoscopy 1958 Diabetes: Annual Retina Eye Exam 01/18/1968 Hepatitis A Vaccines (1 of 2 - Risk 2-dose series) 1977 Hepatitis C Screening 02/09/2022 Medicare Annual Wellness Visit 02/09/2022 Social Influencers of Health Screening 02/09/2022 Diabetes: Annual Urine Albumin-Creatinine Ratio (uACR) 02/21/2022 Zoster Vaccines (2 of 2) 01/11/2024 11/16/2023 Depression Screening 03/09/2024 COVID-19 Vaccine ( season) 2024 11/26/2023, 12/17/2021, 07/03/2021, Additional history exists Influenza Vaccine (#1) 2024 , 12/02/2022, 12/17/2021, Additional history exists Diabetes: Blood Sugar Control Test (HGBA1C) 03/16/2025 09/13/2024, 01/04/2024, 12/11/2023, Additional history exists Diabetes: Annual Foot Exam 12/09/2025 12/09/2024 Diabetes: Annual GFR (Glomerular Filtration Rate) 12/11/2025 12/11/2024, 12/10/2024, 12/09/2024, Additional history exists Falls Risk Assessment 12/11/2025 12/11/2024 Hypertension/CHF/CAD Annual BMP Blood Test 12/11/2025 12/11/2024, 12/10/2024, 12/09/2024, Additional history exists Cholesterol Screening (Lipid Panel) [...] on patient's age to complete this topic Goals Goal Patient Goal Type Associated Problems [...] omised skin integrity. No Liliane Leone RN Procedures Procedure Name Priority Date/Time Associated Diagnosis Comments CULTURE WOUND WITH GRAM STAIN Routine 12/21/2024 1:30 PM EDT Type 2 diabetes mellitus with other skin ulcer (CODE) (CMS/HCC V24, CMS/HCC V28) Non-pressure chronic ulcer of other part of right lower leg with fat layer exposed (CMS/HCC V24, CMS/HCC V28) DEBRIDEMENT Routine 12/21/2024 12:45 PM EDT Type 2 diabetes mellitus with other skin ulcer (CODE) (CMS/HCC V24, CMS/HCC V28) Non-pressure chronic ulcer of other part of right lower leg with fat layer exposed (CMS/HCC V24, CMS/HCC V28) POCT GLUCOSE BLOOD Routine 12/11/2024 8: 22 AM EDT CBC WITH AUTO DIFFERENTIAL Routine 12/11/2024 5:46 AM EDT CBC AND DIFFERENTIAL Routine 12/11/2024 5:46 AM EDT BASIC METABOLIC PANEL Routine 12/11/2024 5:46 AM EDT VANCOMYCIN, RANDOM Routine 12/10/2024 9: 36 PM EDT POCT GLUCOSE BLOOD Routine 12/10/2024 7: 55 PM EDT POCT GLUCOSE BLOOD Routine 12/10/2024 4: 36 PM EDT CPAP NIV Routine 12/10/2024 1:33 PM EDT POCT GLUCOSE BLOOD Routine 12/10/2024 11 :15 AM EDT POCT GLUCOSE BLOOD Routine 12/10/2024 8: 19 AM EDT CBC WITH AUTO DIFFERENTIAL Routine 12/10/2024 5:58 AM EDT BASIC METABOLIC PANEL Routine 12/10/2024 5:58 AM EDT CBC AND DIFFERENTIAL Routine 12/10/2024 5:58 AM EDT CPAP NIV Routine 12/09/2024 10:00 PM EDT VANCOMYCIN, TROUGH Timed 12/09/2024 9: 37 PM EDT POCT GLUCOSE BLOOD Routine 12/09/2024 8: 03 PM EDT POCT GLUCOSE BLOOD Routine 12/09/2024 4: 34 PM EDT POCT GLUCOSE BLOOD Routine 12/09/2024 11 :18 AM EDT RESPIRATORY VIRUS PANEL MOLECULAR STUDY Routine 12/09/2024 9:07 AM EDT POCT GLUCOSE BLOOD Routine 12/09/2024 8: 26 AM EDT CBC WITH AUTO DIFFERENTIAL Routine 12/09/2024 6:18 AM EDT CBC AND DIFFERENTIAL Routine 12/09/2024 6:18 AM EDT MAGNESIUM Routine 12/09/2024 6:18 AM EDT BASIC METABOLIC PANEL Routine 12/09/2024 6:18 AM EDT CPAP NIV Routine 12/08/2024 10:00 PM EDT POCT GLUCOSE BLOOD Routine 12/08/2024 8: 17 PM EDT BASIC METABOLIC PANEL Routine 12/08/2024 7:05 PM EDT LACTATE, WITH REFLEX Routine 12/08/2024 7:05 PM EDT MRSA PCR Routine 12/08/2024 6:02 PM EDT POCT GLUCOSE BLOOD Routine 12/08/2024 5: 03 PM EDT CPAP NIV Routine 12/08/2024 4:29 PM EDT XR TIBIA FIBULA 2 VIEWS RIGHT STAT 12/08/2024 2:27 PM EDT LACTATE, WITH REFLEX STAT 12/08/2024 11:07 AM EDT CULTURE BLOOD STAT 12/08/2024 11:07 AM EDT CULTURE BLOOD STAT 12/08/2024 11:07 AM EDT C-REACTIVE PROTEIN Add-On 12/08/2024 10 :07 AM EDT CBC WITH AUTO DIFFERENTIAL STAT 12/08/2024 10:07 AM EDT COMPREHENSIVE METABOLIC PANEL STAT 12/08/2024 10:07 AM EDT CBC AND DIFFERENTIAL STAT 12/08/2024 10:07 AM EDT XR CHEST 2 VIEWS STAT 11/22/2024 3:20 [...] GRAM STAIN STAT 10/26/2024 11:25 PM EDT HEMOGLOBIN A1C Routine 09/13/2024 4:39 AM EDT Type 2 diabetes mellitus without complications ([facility] V24, [facility] V28) Weakness Heart failure, unspecified (CMS/HCC V24, [facility] V28) Vitamin D deficiency, unspecified LIPID PANEL WITH REFLEX TO DIRECT LDL Routine 09/13/2024 4:39 AM EDT Type 2 diabetes mellitus without complications (CMS/HCC V24, [facility] V28) Weakness Heart failure, unspecified ([facility] V24, [facility] V28) Vitamin D deficiency, unspecified from Last 3 Months or Most Recently Relevant to Health Maintenance Results * (ABNORMAL) Culture wound with gram stain (12/21/2024 1:30 PM EDT) Only the most recent of2 resultswithin the time period is included. Culture, Wound Corrie albicans/dubliniensi s(A) 12/25/2024 10:33 AM EDT [facility] Comment: The organism value for this result has been updated. These results have been appended to the previously preliminary verified report. Edited result: Previously reported as Yeast on 12/24/2024 at 1004 EDT. Gram Stain Result No polymorphonuclear leukocytes, No epithelial cells, and No organisms noted 12/25/2024 10:33 AM EDT [facility] Swab Structure of right lower limb / Unknown Non-blood Collection / Unknown 12/21/2024 1:30 PM EDT 12/21/2024 3:52 PM EDT Narrative [facility] - 12/25/2024 10:33 AM EDT Normal skin bea also noted us Tim CABALLERO LAB MICROBIOLOGY - GENERAL ORDERABLES Final Result [facility] [address] [place] [address], [place] [phone] * Debridement Diabetic Ulcer Right;Lateral;Lower Leg (12/21/2024 12:45 PM EDT) Ludin Grider MD - 12/21/2024 12:45 PM EDT Ludin Viveros MD 12/23/2024 3:56 PM Debridement Diabetic Ulcer Right;Lateral;Lower Leg Performed by: ADA Laureano Authorized by: ADA Laureano Associated wounds: Wound Diabetic Ulcer 12/08/24 Leg Right;Lateral;Lower Consent: Consent obtained: Verbal Consent given by: Patient Risks discussed: Yes Time out: Immediately prior to the procedure a time out was called Debridement Details: Performed by: PA Type: surgical Level: subcutaneous tissue Pain control: [...] to treatment: Procedure was tolerated well Tim Mclaughlin PA IN CLINIC/BEDSIDE ORDERABLE S Final Result * (ABNORMAL) POCT Glucose, blood (12/11/2024 8:22 AM EDT) Only the most recent of11 resultswithin the time period is included. [facility] Glucose POCT 192(H) 70 - 100 mg/dL 12/11/2024 8:31 AM EDT [facility] Blood Capillary blood specimen / Unknown 12/11/2024 8:22 AM EDT 12/11/2024 8:32 AM EDT us Maura Dahl MD LAB POINT OF CARE TE ST DOCKED DEVICE UNSOLICITED RESULTS Final Result [facility] [address] [place] [address], [place] [phone] * (ABNORMAL) CBC auto differential (12/11/2024 5:46 AM EDT) Only the most recent of5 resultswithin the time period is included. [facility] WBC 5.9 4.8 - 10.8 K/mcL LAB HEMETOLOGY METHOD 12/11/2024 6:45 AM EDT [facility] RBC 5.40 4.50 - 5.50 M/mcL LAB HEMETOLOGY METHOD 12/11/2024 6:45 AM EDT [facility] Hemoglobin 14.4 13.5 - 17.5 g/dL LAB HEMETOLOGY METHOD 12/11/2024 6:45 AM EDT [facility] Hematocrit 47.9 42.0 - 54.0 % LAB HEMETOLOGY METHOD 12/11/2024 6:45 AM EDT [facility] MCV 89.4 79.0 - 98.0 FL LAB HEMETOLOGY METHOD 12/11/2024 6:45 AM EDT [facility] MCH 26.9(L) 27.0 - 32.0 pcg LAB HEMETOLOGY METHOD 12/11/2024 6:45 AM EDT [facility] MCHC 30.1(L) 32.0 - 37.0 g/dL LAB HEMETOLOGY METHOD 12/11/2024 6:45 AM EDT [facility] RDW 14.3 11.0 - 15.0 % LAB HEMETOLOGY METHOD 12/11/2024 6:45 AM EDT [facility] Platelets 273 130 - 400 K/mcL LAB HEMETOLOGY METHOD 12/11/2024 6:45 AM [facility] MPV 9.2 7.0 - 11.0 FL LAB HEMETOLOGY METHOD 12/11/2024 6:45 AM [facility] NRBC 0.0 <1.0 % LAB HEMETOLOGY METHOD 12/11/2024 6:45 AM [facility] NRBC Absolute 0.00 <0.10 K/mcL LAB HEMETOLOGY METHOD 12/11/2024 6:45 AM [facility] Neutrophils Relative 61.7 % LAB HEMETOLOGY METHOD 12/11/2024 6:45 AM [facility] Lymphocytes Relative 17.0 % LAB HEMETOLOGY METHOD 12/11/2024 6:45 AM [facility] Monocytes Relative 15.5 % LAB HEMETOLOGY METHOD 12/11/2024 6:45 AM [facility] Eosinophils Relative 4.8 % LAB HEMETOLOGY METHOD 12/11/2024 6:45 AM [facility] Basophils Relative 0.7 % LAB HEMETOLOGY METHOD 12/11/2024 6:45 AM [facility] Immature Granulocytes Relative 0.3 % LAB HEMETOLOGY METHOD 12/11/2024 6:45 AM [facility] Neutrophils Absolute 3.62 1.50 - 7.00 K/mcL LAB HEMETOLOGY METHOD 12/11/2024 6:45 AM [facility] Lymphocytes Absolute 1.00 1.00 - 5.00 K/mcL LAB HEMETOLOGY METHOD 12/11/2024 6:45 AM [facility] Monocytes Absolute 0.91 0.20 - 1.00 K/mcL LAB HEMETOLOGY METHOD 12/11/2024 6:45 AM [facility] Eosinophils Absolute 0.28 0.00 - 0.50 K/mcL LAB HEMETOLOGY METHOD 12/11/2024 6:45 AM T [facility] Basophils Absolute 0.04 0.00 - 0.20 /[facility] LAB HEMETOLOGY METHOD 12/11/2024 6:45 AM EDT [facility] Immature Granulocytes Absolute 0.02 0.00 - 0.03 /[facility] LAB HEMETOLOGY METHOD 12/11/2024 6:45 AM EDT [facility] Blood Venous blood specimen / Unknown Venipuncture / Unknown 12/11/2024 5:46 AM EDT 12/11/2024 6:29 AM EDT us Maura Dahl MD LAB BLOOD ORDERABLES Final Res ult [facility] [address] [place] [address], * (ABNORMAL) Basic metabolic panel (12/11/2024 5:46 AM EDT) Only the most recent of5 resultswithin the time period is included. Sodium 136 133 - 145 mmol/L LAB CHEMISTRY METHOD 12/11/2024 7:19 AM [facility] Potassium 4.0 3.5 - 5.5 mmol/L LAB CHEMISTRY METHOD 12/11/2024 7:19 AM [facility] Chloride 101 96 - 110 mmol/L LAB CHEMISTRY METHOD 12/11/2024 7:19 AM [facility] CO2 29 21 - 32 mmol/L LAB CHEMISTRY METHOD 12/11/2024 7:19 AM [facility] Anion Gap 6 3 - 11 LAB CHEMISTRY METHOD 12/11/2024 7:19 AM [facility] Glucose 137(H) 70 - 100 mg/dL LAB CHEMISTRY METHOD 12/11/2024 7:19 AM [facility] BUN 30(H) 5 - 25 mg/dL LAB CHEMISTRY METHOD 12/11/2024 7:19 AM EDT [facility] Creatinine 0.96 0.70 - 1.30 mg/dL LAB CHEMISTRY METHOD 12/11/2024 7:19 AM EDT [facility] eGFR 87 >=60 mL/min/1. 73m2 LAB CHEMISTRY METHOD 12/11/2024 7:19 AM EDT [facility] Comment:Calculation based on the Chronic Kidney Disease Epidemiology Collaboration (CKD-EPI) equation refit without adjustment for race. BUN/Creatinine Ratio 31.3 LAB CHEMISTRY METHOD 12/11/2024 7:19 AM EDT [facility] Calcium 9.2 8.5 - 10.5 mg/dL LAB CHEMISTRY METHOD 12/11/2024 7:19 AM EDT [facility] Blood Venous blood specimen / Unknown Venipuncture / Unknown 12/11/2024 5:46 AM EDT 12/11/2024 6:29 AM EDT us Maura Dahl MD LAB BLOOD ORDERABLES Final Res ult [facility] [address] [place] [address], [place] [phone] * Vancomycin random (12/10/2024 9:36 PM EDT) Vancomycin Rm 15.4 mcg/mL LAB CHEMISTRY METHOD 12/10/2024 10:06 PM EDT [facility] Blood Venous blood specimen / Unknown Venipuncture / Unknown 12/10/2024 9:36 PM EDT 12/10/2024 9:41 PM EDT us Kimberly CABALLERO LAB BLOOD ORDERABLES Final Re sult [facility] [address] [place] [address], [place] [phone] * Vancomycin, trough Level for LUCA dose adjustments. Please draw within 1 hour before 12/09 evening dose (12/09/2024 9:37 PM EDT) [facility] Vancomycin Trough 10.6 10.0 - 20.0 mcg/mL LAB CHEMISTRY METHOD 12/09/2024 10:36 PM EDT [facility] Blood Venous blood specimen / Unknown Venipuncture / Unknown 12/09/2024 9:37 PM EDT 12/09/2024 10:01 PM EDT us Kimberly CABALLERO LAB BLOOD ORDERABLES Final Re sult [facility] [address] [place] [address], * Respiratory virus panel molecular study (12/09/2024 9:07 AM EDT) [facility] Adenovirus Detection by PCR Not Detected Not Detected LAB MICROBIOLOGY METHOD 12/09/2024 10:27 AM EDT [facility] Influenza A PCR Not Detected Not Detected LAB MICROBIOLOGY METHOD 12/09/2024 10:27 AM EDT [facility] Influenza B PCR Not Detected Not Detected LAB MICROBIOLOGY METHOD 12/09/2024 10:27 AM EDT [facility] Coronavirus 229E Not Detected Not Detected LAB MICROBIOLOGY METHOD 12/09/2024 10:27 AM EDT [facility] Coronavirus HKU1 Not Detected Not Detected LAB MICROBIOLOGY METHOD 12/09/2024 10:27 AM EDT [facility] Coronavirus OC43 Not Detected Not Detected LAB MICROBIOLOGY METHOD 12/09/2024 10:27 AM EDT [facility] Coronavirus NL63 Not Detected Not Detected LAB MICROBIOLOGY METHOD 12/09/2024 10:27 AM EDT [facility] Parainfluenza Virus 1 Not Detected Not Detected LAB MICROBIOLOGY METHOD 12/09/2024 10:27 AM EDT [facility] Parainfluenza Virus 2 Not Detected Not Detected LAB MICROBIOLOGY METHOD 12/09/2024 10:27 AM EDT [facility] Parainfluenza Virus 3 Not Detected Not Detected LAB MICROBIOLOGY METHOD 12/09/2024 10:27 AM EDT [facility] Parainfluenza Virus 4 Not Detected Not Detected LAB MICROBIOLOGY METHOD 12/09/2024 10:27 AM EDT [facility] RSV PCR Not Detected Not Detected LAB MICROBIOLOGY METHOD 12/09/2024 10:27 AM EDT [facility] Human Metapneumovirus A and B Not Detected Not Detected LAB MICROBIOLOGY METHOD 12/09/2024 10:27 AM EDT [facility] Rhinovirus/Entero virus Not Detected Not Detected LAB MICROBIOLOGY METHOD 12/09/2024 10:27 AM EDT [facility] Bordetella pertussis Not Detected Not Detected LAB MICROBIOLOGY METHOD 12/09/2024 10:27 AM EDT [facility] Bordetella parapertussis Not Detected Not Detected LAB MICROBIOLOGY METHOD 12/09/2024 10:[facility] Mycoplasma pneumo by PCR Not Detected Not Detected LAB MICROBIOLOGY METHOD 12/09/2024 10:[facility] Chlamydia pneumoniae Not Detected Not Detected LAB MICROBIOLOGY METHOD 12/09/2024 10:27 AM EDT [facility] SARS COV-2 Not Detected Not Detected LAB MICROBIOLOGY METHOD 12/09/2024 10:27 AM EDT [facility] Swab Nasopharyngeal structure / Unknown Non-blood Collection / Unknown 12/09/2024 9:07 AM EDT 12/09/2024 9:16 AM EDT [facility] - 12/09/2024 10:27 AM EDT Testing was performed using the [employer]piratory Pathogen PCR Assay. All results must be correlated with the clinical findings. Results should not be used as the sole basis for diagnosis. False Negative results may occur from the presence of sequence variants in the region targeted by the assay or the presence of inhibitors. Results may be affected by concurrent antiviral/antimicrobial therapy or levels of organisms that are below the limit of detection. us Tennille CABALLERO LAB MICROBIOLOGY - GENERAL ORDERABLES Final Result Performing Organization Address [facility]/ZIP Co de Phone Number [facility] [address] [place] [address], [place] [phone] * Magnesium (12/09/2024 6:18 AM EDT) Only the most recent of2 resultswithin the time period is included. Pathologist [facility] Magnesium 2.1 1.9 - 2.6 mg/dL LAB CHEMISTRY METHOD 12/09/2024 7:32 AM EDT [facility] Blood Venous blood specimen / Unknown Venipuncture / Unknown 12/09/2024 6:18 AM EDT 12/09/2024 7:04 AM EDT us Randy Mckeon MD LAB BLOOD ORDERABLES Final Re sult Performing Organization Address [facility] de Phone Number [facility] [address] [place] [address], * Lactate, with reflex (12/08/2024 7:05 PM EDT) Only the most recent of2 resultswithin the time period is included. LACTIC ACID 1.7 0.4 - 2.0 mmol/L LAB CHEMISTRY METHOD 12/08/2024 7:37 PM EDT [facility] Blood Venous blood specimen / Unknown Venipuncture / Unknown 12/08/2024 7:05 PM EDT 12/08/2024 7:11 PM EDT us Randy Mckeon MD LAB BLOOD ORDERABLES Final Re sult Performing Organization Address [facility]/ZIP Co de Phone Number [facility] [address] [place] [address], [place] [phone] * (ABNORMAL) MRSA molecular study (12/08/2024 6:02 PM EDT) MRSA Screen PCR Detected (A) Not Detected LAB MICROBIOLOGY METHOD 12/08/2024 9:31 PM EDT [facility] Swab Nasopharyngeal structure / Unknown Non-blood Collection / Unknown 12/08/2024 6:02 PM EDT 12/08/2024 8:24 PM EDT Kimberly CABALLERO LAB MICROBIOLOGY - GENERAL OR DERABLES Final Result Performing Organization Address [facility] Co de Phone Number [facility] [address] [place] [address], [place] [phone] * XR Tibia Fibula 2 Views Right (12/08/2024 2:27 PM EDT) Anatomical Region Laterality Modality Lower Extremities, Lower Leg Right Rad iographic Imaging 12/08/2024 3:33 PM EDT Impressions 12/08/2024 3:33 PM EDT FINDINGS/IMPRESSION: There is a wound over the distal grace adjacent to the fibula. There is no acute osseous abnormality or erosion. Normal alignment. No fracture. Vascular calcifications. -------- FINAL REPORT -------- Dictated By: Philipp Hitchcock Dictated Date: 12/08/2024 15:33 ET Assigned Physician: Philipp Hitchcock Reviewed and Electronically Signed By: Philipp Hitchcock Signed Date: 12/08/2024 15:33 ET Workstation ID: [id number] Transcribed By: Self Edit Transcribed Date: 12/08/2024 15:33 ET Narrative 12/08/2024 3:33 PM EDT XR TIBIA FIBULA 2 VIEWS RIGHT INDICATION: pain TECHNIQUE: XR TIBIA FIBULA 2 VIEWS RIGHT COMPARISON: No priors available. Procedure Note Philipp Hitchcock MD - 12/08/2024 XR TIBIA FIBULA 2 VIEWS RIGHT INDICATION: pain TECHNIQUE: XR TIBIA FIBULA 2 VIEWS RIGHT COMPARISON: No priors available. IMPRESSION: FINDINGS/IMPRESSION: There is a wound over the distal grace adjacent to thefibula. There is no acute osseous abnormality or erosion. Normalalignment. No fracture. Vascular calcifications. -------- FINAL REPORT -------- Dictated By: Philipp Hitchcock Dictated Date: 12/08/2024 15:33 ET Assigned Physician: Philipp Hitchcock Reviewed and Electronically Signed By: Philipp Hitchcock Signed Date: 12/08/2024 15:33 ET Workstation ID: [id number] Transcribed By: Self Edit Transcribed Date: 12/08/2024 15:33 ET us Ben CABALLERO IMG XR PROCEDURES Final Res ult * Culture blood (12/08/2024 11:07 AM EDT) Only the most recent of2 resultswithin the time period is included. Culture, Blood No growth at 5 days LAB MICROBIOLOGY METHOD 12/13/2024 12:01 PM EDT [facility] Blood Venous blood specimen / Unknown Venipuncture / Unknown 12/08/2024 11:07 AM EDT 12/08/2024 11:18 AM EDT Kirk Holloway MD LAB MICROBIOLOGY - [facility] Final Result [facility] [address] [place] [address], * (ABNORMAL) C-reactive protein (12/08/2024 10:07 AM EDT) C-Reactive Protein 1.32(H) <=0.50 mg/dL LAB CHEMISTRY METHOD 12/08/2024 2:26 PM EDT [facility] Blood Venous blood specimen / Unknown Venipuncture / Unknown 12/08/2024 10:07 AM EDT 12/08/2024 10:33 AM EDT us Randy Mckeon MD LAB BLOOD ORDERABLES Final Re sult [facility] [address] [place] [address], * (ABNORMAL) Comprehensive metabolic panel (12/08/2024 10:07 AM EDT) Sodium 131(L) 133 - 145 mmol/L LAB CHEMISTRY METHOD 12/08/2024 11:16 AM [facility] Potassium 4.0 3.5 - 5.5 mmol/L LAB CHEMISTRY METHOD 12/08/2024 11:16 AM [facility] Chloride 93(L) 96 - 110 mmol/L LAB CHEMISTRY METHOD 12/08/2024 11:16 AM [facility] CO2 29 21 - 32 mmol/L LAB CHEMISTRY METHOD 12/08/2024 11:16 AM [facility] Anion Gap 9 3 - 11 LAB CHEMISTRY METHOD 12/08/2024 11:16 AM [facility] Glucose 292(H) 70 - 100 mg/dL LAB CHEMISTRY METHOD 12/08/2024 11:16 AM [facility] BUN 60(H) 5 - 25 mg/dL LAB CHEMISTRY METHOD 12/08/2024 11:16 AM [facility] Creatinine 1.65(H) 0.70 - 1.30 mg/dL LAB CHEMISTRY METHOD 12/08/2024 11:16 AM [facility] eGFR 46(L) >=60 mL/min/1. 73m2 LAB CHEMISTRY METHOD 12/08/2024 11:16 AM [facility] Comment:Calculation based on the Chronic Kidney Disease Epidemiology Collaboration (CKD-EPI) equation refit without adjustment for race. BUN/Creatinine Ratio 36.4 LAB CHEMISTRY METHOD 12/08/2024 11:16 AM [facility] Calcium 8.8 8.5 - 10.5 mg/dL LAB CHEMISTRY METHOD 12/08/2024 11:16 AM [facility] AST (SGOT) 29 10 - 42 unit/L LAB CHEMISTRY METHOD 12/08/2024 11:16 AM [facility] ALT (SGPT) 29 10 - 60 unit/L LAB CHEMISTRY METHOD 12/08/2024 11:16 AM T [facility] Alkaline Phosphatase 141(H) 42 - 121 unit/L LAB CHEMISTRY METHOD 12/08/2024 11:16 AM [facility] Total Protein 6.9 6.0 - 8.0 g/dL LAB CHEMISTRY METHOD 12/08/2024 11:16 AM [facility] Albumin 3.1(L) 3.2 - 5.0 g/dL LAB CHEMISTRY METHOD 12/08/2024 11:16 AM [facility] Total Bilirubin 0.4 0.0 - 1.4 mg/dL LAB CHEMISTRY METHOD 12/08/2024 11:16 AM [facility] Blood Venous blood specimen / Unknown Venipuncture / Unknown 12/08/2024 10:07 AM EDT 12/08/2024 10:33 AM EDT us Jm Adams MD LAB BLOOD ORDERABLES Final Result [facility] [address] [place] [address], * XR Chest 2 Views (11/22/2024 3:20 AM EDT) Anatomical Region Laterality Modality Body Radiographic Lillian ging 11/22/2024 9:20 AM EDT Impressions 11/22/2024 9:21 AM EDT No acute findings. -------- FINAL REPORT -------- Dictated By: Fabian Wright Dictated Date: 11/22/2024 09:20 ET Assigned Physician: Fabian Wright Reviewed and Electronically Signed By: Fabian Wright Signed Date: 11/22/2024 09:21 ET Workstation ID: [id number] Transcribed By: Self Edit Transcribed Date: 11/22/2024 [...] findings. -------- FINAL REPORT -------- Dictated By: aFbian Wright Dictated Date: 11/22/2024 09:20 ET Assigned Physician: Fabian Wright Reviewed and Electronically Signed By: Fabian Wrgiht Signed Date: 11/22/2024 09:21 ET Workstation ID: [id number] Transcribed By: Self Edit Transcribed Date: 11/22/2024 09:20 ET us Nehemias De La Cruz MD IMG XR PROCEDURES Final Result * Troponin I High Sensitivity (11/22/2024 2:16 AM EDT) High Sensitivity Troponin I 40 <=79 ng/L LAB CHEMISTRY METHOD 11/22/2024 2:55 AM EDT [facility] Blood Venous blood specimen / Unknown Venipuncture / Unknown 11/22/2024 2:16 AM EDT 11/22/2024 2:24 AM EDT Narrative [facility] - 11/22/2024 2:55 AM EDT High levels of biotin in samples may falsely decrease hsTroponin values. Use caution when interpreting hsTroponin results in patients taking biotin who exhibit renal impairment (eGFR <60) or in patients taking more than 20 mg/day of biotin. us Nehemias De La Cruz MD LAB BLOOD ORDERABLES Final Res ult Performing Organization Address [facility]/ZIP Co de Phone Number [facility] [address] [place] [address], [place] [phone] * B-Type Natriuretic Peptide (BNP) (11/22/2024 2:16 AM EDT) BNP 89 <=100 pcg/mL LAB CHEMISTRY METHOD 11/22/2024 3:03 AM EDT [facility] Blood Venous blood specimen / Unknown Venipuncture / Unknown 11/22/2024 2:16 AM EDT 11/22/2024 2:24 AM EDT us Nehemias De La Cruz MD LAB BLOOD ORDERABLES Final Res ult Performing Organization Address City/[facility]/ZIP Co de Phone Number [facility] [address] [place] [address], [place] [phone] * Lactate (11/22/2024 2:16 AM EDT) Lactate 1.5 0.4 - 2.0 mmol/L LAB CHEMISTRY METHOD 11/22/2024 2:55 AM EDT [facility] Blood Venous blood specimen / Unknown Venipuncture / Unknown 11/22/2024 2:16 AM EDT 11/22/2024 2:24 AM EDT us Nehemias De La Cruz MD LAB BLOOD ORDERABLES Final Res ult [facility] ([facility]) [facility] [address] [place] [address], * XR Toes 2+ Views Left (10/27/2024 12:58 AM EDT) Anatomical Region Laterality Modality Lower Extremities, Toes Left Radiogra phic Imaging 10/27/2024 8:32 AM EDT Impressions 10/27/2024 [...] Signed Date: 10/27/2024 08:36 ET Workstation ID: [id number] Transcribed By: Self Edit Transcribed Date: 10/27/2024 [...] Signed Date: 10/27/2024 08:36 ET Workstation ID: [id number] Transcribed By: Self Edit Transcribed Date: 10/27/2024 08:32 ET us Corinna Sage GAMING CAGE WORKER IMG XR PROCEDURES Final R esult * (ABNORMAL) Lipid panel with reflex to direct LDL (09/13/2024 4:39 AM EDT) Cholesterol 104 0 - 200 mg/dL LAB CHEMISTRY METHOD 09/13/2024 9:34 AM EDT [facility] Triglycerides 131 0 - 150 mg/dL LAB CHEMISTRY METHOD 09/13/2024 9:34 AM EDT [facility] HDL 36(L) >=40 mg/dL LAB CHEMISTRY METHOD 09/13/2024 9:34 AM EDT [facility] LDL Calculated 42 0 - 100 mg/dL LAB CHEMISTRY METHOD 09/13/2024 9:34 AM EDT [facility] VLDL Cholesterol Jay 26.2 mg/dL LAB CHEMISTRY METHOD 09/13/2024 9:34 AM EDT [facility] Non HDL Chol. (LDL+VLDL) 68 <145 mg/dL LAB CHEMISTRY METHOD 09/13/2024 9:34 AM EDT [facility] Chol/HDL Ratio 2.9 0.0 - 4.4 LAB CHEMISTRY METHOD 09/13/2024 9:34 AM EDT [facility] Blood Venous blood specimen / Unknown Venipuncture / Unknown 09/13/2024 4:39 AM EDT 09/13/2024 8:20 AM EDT us My Oconnor MD LAB BLOOD ORDERABLES Final Resu lt Performing Organization Address [facility]/ZIP Co de Phone Number [facility] [address] [place] [address], [place] [phone] * (ABNORMAL) Hemoglobin A1c (09/13/2024 4:39 AM EDT) Hemoglobin A1C 10.0(H) <6.5 % LAB CHEMISTRY METHOD 09/13/2024 2:10 PM EDT [facility] Mean Bld Glu Estim. 240 mg/dL LAB CHEMISTRY METHOD 09/13/2024 2:10 PM EDT [facility] Blood Venous blood specimen / Unknown Venipuncture / Unknown 09/13/2024 4:39 AM EDT 09/13/2024 8:20 AM EDT us My Oconnor MD LAB BLOOD ORDERABLES Final Resu lt Performing Organization Address [facility]/ZIP Co de Phone Number [facility] [address] [place] [address], [place] [phone] from Last 3 Months or Most Recently Relevant to Health Maintenance Additional Health Concerns Active Problems Noted Date Diagnosed Date Impaired Tissue 12/21/2024 Education needed on impact of smoking on wound 1 Education needed related to ulceration/compromised skin integrity. 12/21/2024 Infection Onset Date Last Indicated ESBL 07/27/2024 10/26/[address] [address] MEDICARE Member Subscriber Plan / Payer (Ef fective 2023-Present) Name:Hansel MiramontesRamiro phelps Relation to Subscriber:Self Name:Ramiro Hamm Payer ID:[id number] Group ID:[id number] Type:Not on file Address: [place] [address] [address] [phone] Advance Directives Documents on File Type Date Recorded Patient Insurance Appraiser Expl anation Health Care Decision (hx) 05/19/2020 [...] Care Decision (hx) 01/18/2018 AD SUTTON DIRECTIVE * Full Code - Default (Latest Code Status on File) Date Activated Date Inactivated Comments 12/08/2024 2:13 PM 12/11/2024 2:23 PM This is orde r is used when code status has not been discussed with the patient, or code status is otherwise unknown/unconfirmed To update the patient's code status, place a code status order. Do not modify or discontinue any currently active code status orders. Care Teams Managing Editor Relationship Specialty Start Date End Date Linh Cook MD [address] [place] [phone] PCP - General Internal Medicine 11/05/20
--- OUTSIDE RECORDS SUMMARY | 2024-12-27 20:30 | XMS_ITS | Encounter Summary ---
Author Organization [employer] Address [address] 7t [place] [address] Care Team Providers Care Senior Sales Executive Name Role Phone Linh Cook MD Primary Care Provide r Encounter Details Date Type Department Care Team (Latest Contact Info) Description 12/27/2024 Travel Social History Tobacco Use Types Packs/Day Years [...] Description 02/15/2025 10:45 AM EST Office Visit [facility] [address] [place] [address] Linh Cook MD [address] [place] [address] documented as of this encounter Visit Diagnoses Not on filedocumented in this encounter Additional Health Concerns Assessment Noted Time PHQ-9 Depression Total Score: 13 025 1:43 PM EDT documented as of this encounter Care Teams Senior Sales Executive Relationship Specialty Start Date End Date Linh Cook MD [address] [place] [phone] PCP - General Family Medicine 06/22/18 [facility] [place] 06/10/23 documented as of this encounter
--- OUTSIDE RECORDS SUMMARY | 2024-12-27 20:30 | XMS_ITS | Encounter Summary ---
Author Organization [email or web address] Address [address] [facility] [address]t [place] [address] Care Team Providers Care Spectrographic Analyst Name Role Phone Linh Cook MD Primary Care Provide r Encounter Details Date Type Department Care Team (Late st Contact Info) Description 12/27/2024 Orders Only GENERIC EXTERNAL DATA DEPARTMENT Provider, [...] EST Office Visit [facility] [address] [place], [place] [phone] Linh Cook MD [address] [place] [address] documented as of this encounter Procedures Procedure Name Priority Date/Time Associated Diagnosis Comments LIPID PANEL, STANDARD Routine 12/27/2024 3:29 PM EDT documented in this encounter Results * (ABNORMAL) Lipid Panel, Standard (12/27/2024 3:29 PM EDT) Triglycerides 294(H) <150 mg/dL [facility] Comment:Desirable Triglyceri de: less than 150 mg/dLBorderline High Triglyceride 150-199 mg/dLHigh Triglyceride: 200-499 mg/dLVery High Triglyceride: greater than or equal to 5OO mg/dL Cholesterol 237(H) <200 mg/dL [facility] Comment:Desirable Cholestero l: less than 200 mg/dLBorderline High Cholesterol: 200-239 mg/dLHigh Cholesterol: greater than 239 mg/dL LDL Cholesterol Calculated 137(H) <100 mg/dL [facility] Comment:Desirable LDL: less than 100 mg/dLNear Optimal/Above Optimal LDL: 110- 129 mg/dLBorderline High LDL: 130-159 mg/dLHigh LDL: 160-189 mg/dLVery High LDL: greater than or equal to 190 mg/dL HDL Cholesterol 42 >40 mg/dL [facility] Comment:Desirable HDL: great er than 40 mg/dL Note: This HDL assay may give artificially low results in patients with liver disease. 12/27/2024 3:29 PM EDT 12/27/2024 5:03 PM EDT us Generic External Data Provider LAB BLOOD ORDERAB LES Final Result [facility] [address] [place] [address] [phone] documented in this encounter Visit Diagnoses Not on filedocumented in this encounter Additional Health Concerns Assessment Noted Time PHQ-9 Depression Total Score: 13 025 1:43 PM EDT documented as of this encounter Care Teams Spectrographic Analyst Relationship Specialty Start Date End Date Linh Cook MD [address] [place] [address] PCP - General Family Medicine 06/22/18 [facility] 06/10/23 documented as of this encounter
--- OUTSIDE RECORDS SUMMARY | 2024-12-27 20:30 | XMS_ITS | Encounter Summary ---
Author Organization [employer] Address [address] [facility] [address] 7t [place] [address] Care Team Providers Care Clinical Science Liaison Name Role Phone Linh Cook MD Primary Care Provide r Reason for Visit * Reason Comments Med Refill Encounter Details Date Type Department Care Team ([facility] st Contact Info) Description 12/07/2023 Refill [facility] [address] [place], [place] [phone] Linh Cook MD [address] [place] [address] Essential hypertension Social History Tobacco Use Types [...] Visit [facility] [address] [place] [address] Linh Cook MD [address] [place] [address] documented as of this encounter Visit Diagnoses Diagnosis Essential hypertension Unspecified essential hypertension documented in this encounter Additional Health Concerns Assessment Noted Time PHQ-9 Depression Total Score: 13 024 2:02 PM EDT documented as of this encounter Care Teams Clinical Science Liaison Relationship Specialty Start Date End Date Linh Cook MD [address] [place] [phone] PCP - General Family Medicine 06/22/18 [facility] 06/10/23 documented as of this encounter
--- OUTSIDE RECORDS SUMMARY | 2024-12-27 20:30 | XMS_ITS | Encounter Summary ---
Author Organization [employer] Address [address] [place] [address] 7t [place] [address] Care Team Providers Care Private Duty Aide Name Role Phone Linh Cook MD Primary Care Provide r Reason for Visit * Reason Onset Date Comments Appointment Request 12/05/2024 Encounter Details Date Type Department Care Team ([facility] Contact Info) Description 12/05/2024 Telephone [facility] [address] [place], [place] [phone] Linh Cook MD [address] [place] [address] Appointment Request Social History Tobacco Use Types [...] to r/s PE. Contact Rosa Elena at [phone]. documented in this encounter Plan of Treatment Upcoming Encounters Date Type Department Care Team (Late st Contact Info) Description 02/15/2025 10:45 AM EST Office Visit [facility] [address] [place] [phone] Linh Cook MD [address] [place] [address] documented as of this encounter Visit Diagnoses Not on filedocumented in this encounter Additional Health Concerns Assessment Noted Time PHQ-9 Depression Total Score: 13 025 1:43 PM EDT documented as of this encounter Care Teams Private Duty Aide Relationship Specialty Start Date End Date Linh Cook MD [address] [place] [phone] PCP - General Family Medicine 06/22/18 [facility] 06/10/23 documented as of this encounter
--- OUTSIDE RECORDS SUMMARY | 2024-12-27 20:30 | XMS_ITS | Encounter Summary ---
Author Organization [employer] Address [address] [facility] 7t [place] [address] Care Team Providers Care Truck Operator Name Role Phone Linh Cook MD Primary Care Provide r Encounter Details Date Type Department Care Team ([facility] st Contact Info) Description 03/04/2023 Orders Only [facility] [address] [place], [place] [phone] Linh Cook MD [address] [place], [place] [phone] Diabetic polyneuropathy associated with type 2 diabetes [...] Description 02/15/2025 10:45 AM EST Office Visit [facility] [address] [place] [phone] Linh Cook MD [address] [place] [address] documented as of this encounter Visit Diagnoses Diagnosis Diabetic polyneuropathy associated with type 2 diabetes mellitus (HCC) documented in this encounter Additional Health Concerns Assessment Noted Time PHQ-9 Depression Total Score: 8 06/26/19 23 3:29 PM EDT documented as of this encounter Care Teams Truck Operator Relationship Specialty Start Date End Date Linh Cook MD [address] [place] [phone] PCP - General Family Medicine 06/22/18 [facility] 06/10/23 documented as of this encounter
--- OUTSIDE RECORDS SUMMARY | 2024-12-27 20:30 | XMS_ITS | Encounter Summary ---
Author Organization [employer] Address [address] [place] [address] 7[address] [place] [address] Care Team Providers Care Senior Infrastructure Architect Name Role Phone Linh Cook MD Primary Care Provide r Reason for Visit * Reason Onset Date Comments Pre-visit Planning 09/24/2022 Encounter Details Date Type Department Care Team ([facility] st Contact Info) Description 09/24/2022 Telephone [facility] [address] [place], [place] [phone] Linh Cook MD [address] [place] [address] Pre-visit Planning Social History Tobacco Use Types [...] Description 02/15/2025 10:45 AM EST Office Visit [facility] [address] [place] [address] Linh Cook MD [address] [place] [address] documented as of this encounter Visit Diagnoses Not on filedocumented in this encounter Additional Health Concerns Assessment Noted Time PHQ-9 Depression Total Score: 8 06/26/19 23 3:29 PM EDT documented as of this encounter Care Teams Senior Infrastructure Architect Relationship Specialty Start Date End Date Linh Cook MD [address] [place] [address] PCP - General Family Medicine 06/22/18 [facility] 06/10/23 documented as of this encounter
--- OUTSIDE RECORDS SUMMARY | 2024-12-27 20:30 | XMS_ITS | Clinical Summary ---
Author Organization [employer] Address [address] [place] [address] Care Team Providers Care Fiberglasser Name Role Phone Linh Cook MD Primary Care Provide r Allergies Active Allergy Reactions Criticality Noted Date Comments Lisinopril Cough,Nausea Only Medium 01/20/2018 cough Medications Xarelto 20 MG tablet Take 20 mg by mouth 1 (one) time each day. 023 Active Continuous Blood Gluc Sensor (FreeStyle Home 2 Sensor) [facility] 1 each on the skin 3 times daily. 023 Active albuterol 108 (90 Base) MCG/ACT inhaler Inhale 2 puffs every 4 (four) hours if needed. 021 Active acetaminophen (Tylenol 8 Hour) 650 MG ER tablet Take 2 tablets by mouth every 8 (eight) hours. 022 Active allopurinol (Zyloprim) 100 MG tablet Take 1 tablet by mouth in the morning. 024 Active Xolair 75 MG/0.5ML injection Inject 375 mg under the skin every 14 (fourteen) days. 024 Active Xolair 150 MG/ML injection Inject 375 mg under the skin every 14 (fourteen) days. 023 Active Entresto 49-51 MG tabletIndications :Chronic combined systolic and diastolic heart failure (HCC) Take 1 tablet by mouth 2 times daily. 60 tablet 024 Active empagliflozin (Jardiance) 10 MGIndications:Typ e 2 diabetes mellitus with hyperglycemia, with long-term current use of insulin (HCC) Take 1 tablet (10 mg) by mouth in the morning. 30 tablet 2 Active colchicine 0.6 MG tablet ON DAY ONE TAKE 2 CAPSULES THEN AFTER ONE HOUR ONE CAPSULE AND THEN ONE CAPSULE TWICE DAILY UNTIL FLARE RESOLVES 30 tablet 024 Active atorvastatin (Lipitor) 40 MG tabletIndications :Essential hypertension TAKE 1 TABLET BY MOUTH EVERY MORNING 30 tablet 1 024 Active omeprazole (PriLOSEC) [address] capsule Take 1 capsule (40 mg) by mouth before breakfast. Do not crush or chew.TAKE 1 CAPSULE (40 MG) BY MOUTH IN THE MORNING. 30 capsule 1 025 Active gabapentin (Neurontin) 800 MG tabletIndications :Diabetic polyneuropathy associated with type 2 diabetes mellitus (HCC) TAKE 1 TABLET (800 MG) BY MOUTH 3 TIMES DAILY. 90 tablet 10 Active bumetanide (Bumex) 2 MG tablet Take 1 tablet by mouth Once per day. Active BD Insulin Syringe U-500 31G X 6MM 0.5 ML misc Use as directed. Active Toprol XL 50 MG 24 hr tablet Take 1 tablet by mouth Once per day. Active spironolactone (Aldactone) 25 MG tablet Take 1 tablet by mouth Once per day. Active oxyCODONE (Roxicodone) 5 MG immediate release tabletIndications :Chronic pain of both knees Take 1 tablet (5 mg) by mouth every 8 (eight) hours if needed for severe pain. 15 tablet Active FREESTYLE LITE test strip Use as directed to test blood sugars Active HumuLIN R 500 UNIT/ML CONCENTRATED injection before breakfast, before lunch, and before evening meal. 100- units prior to breakfast, 80 units pre lunch and 40 units pre lunch Active Mounjaro 7.5 MG/0.5ML solution auto-injector Inject 7.5 mg under the skin every 7 (seven) days. Active sennosides (Senokot) 8.6 MG tablet Take 1 tablet by mouth at bedtime. 2024 Discontinued(M ed list cleanup (will not trigger notification to Pharmacy)) Lantus SoloStar 100 UNIT/ML pen Inject 50 Units under the skin Once per day. 2024 Discontinued(M ed list cleanup (will not trigger notification to Pharmacy)) insulin lispro (HumaLOG) 100 UNIT/ML injection Inject 19 to 34 units subcutaneous three times a day before meals according to sliding scale comments 025 2024 Discontinued(M ed list cleanup (will not trigger notification to Pharmacy)) Mounjaro 2.5 MG/0.5ML solution auto-injector Inject 2.5 mg under the skin every 7 (seven) days. 024 2024 Discontinued(M ed list cleanup (will not trigger notification to Pharmacy)) cyanocobalamin (Vitamin B-12) 1000 MCG tablet Take 1 tablet by mouth Once per day. 2024 Discontinued(M ed list cleanup (will not trigger notification to Pharmacy)) Active Problems Problem Noted Date Diagnosed Date Acute gout of right wrist 12/26/2024 Cough 12/26/2024 Dyslipidemia 12/26/2024 Environmental allergies 12/26/2024 Leg edema 12/26/2024 ACOSTA (dyspnea on exertion) 12/26/2024 Orthopnea 12/26/2024 RSV bronchitis 12/26/2024 Stable angina 12/26/2024 Vitamin D deficiency 12/26/2024 Acute exacerbation of CHF (congestive heart fail ure) 12/26/2024 Overview (12/26/2024): systolic and diastolic heart failure CKD (chronic kidney disease) 12/26/2024 Weakness 12/26/2024 Cirrhosis (CMS/HCC) 12/26/2024 Type 2 diabetes mellitus 12/26/2024 Bilateral hypertensive retinopathy 12/26/2024 DR (diabetic retinopathy) 12/26/2024 Chronic hepatitis C without hepatic coma HCV (hepatitis C virus) 12/26/2024 HLD (hyperlipidemia) 12/26/2024 HTN (hypertension) 12/26/2024 Hypotension 12/26/2024 PAD (peripheral artery disease) 12/26/2024 Child-Thurston class A liver disease score Muscle pain 06/30/2024 Muscle weakness 06/30/2024 Suppurative arthritis 06/30/2024 Unsteadiness on feet 06/30/2024 Pain in lower limb 06/30/2024 AICD (automatic cardioverter/defibrillator) pres ent 04/01/2024 Overview (12/26/2024): [employer], implanted 06/28/20 Other cardiomyopathies 04/01/2024 Hypotension due to hypovolemia 04/01/2024 Unstable gait 01/04/2024 Assessment & Plan (01/04/2024 1:54 PM EDT): I will prescribe for patient bariatric roller walker Chronic fatigue 01/04/2024 JANELL (obstructive sleep apnea) 01/04/2024 Chronic kidney disease, stage 2 (mild) Acute gout of right hand 10/05/2023 Assessment [...] colchicine patient has upcoming appointment with rheumatology Knee joint effusion 05/22/2023 Methicillin susceptible Staphylococcus aureus in fection 05/22/2023 Methicillin resistant Staphylococcus aureus infe ction 05/22/2023 Need for assistance with personal care 4 Dyspnea 05/22/2023 Primary gout 05/22/2023 Retention of urine 05/22/2023 Septic shock (CMS/HCC) 05/22/2023 Chronic diastolic heart failure 05/22/2023 Acute kidney injury 05/22/2023 Allergic asthma 05/22/2023 Cellulitis of left upper limb 05/22/2023 Gastroesophageal reflux disease without esophagi tis 05/22/2023 Pain of left middle finger 03/27/2023 Chronic kidney disease, stage 3a ([facility]) 03/20 Assessment & Plan (12/27/2024 3:13 PM EDT): - Chronic kidney disease stage 3a. - Referred to restrictive preparation operator for renal evaluation. Ordered urinalysis for kidney function monitoring Diabetic polyneuropathy asso ciated with type 2 [...] take medications as prescribe BMI 45.0-49.9, adult [place] 10/01/2022 Allergic rhinitis 06/26/2022 Diabetic retinopathy 06/26/2022 Hepatitis C virus infection 06/26/2022 Nonischemic congestive cardiomyopathy [place] 06/26/2022 Assessment & Plan (01/04/2024 4:35 PM EDT): Continue tot follow with cardiology Uncontrolled type 2 diabetes mellitus 06/26/2022 Abnormal gait 05/14/2022 Bilateral chronic knee pain 05/14/2022 Cirrhosis of liver [place] 05/14/2022 Essential hypertension 05/14/2022 Assessment & Plan [...] localized osteoarthritis of knees, bilat eral 05/14/2022 Assessment & Plan (12/27/2024 3:15 PM EDT): - Bilateral knee osteoarthritis with pain improved after intervention. - Referred to driver; appointment scheduled for January 05, 2025, at 2:15 PM at [facility]. Evaluation for scooter for mobility assistance. Primary osteoarthritis of both knees 05/14/2022 Assessment & Plan (09/17/2023 12:29 PM EDT): Orthopedics referral Restrictive lung disease 05/14/2022 Class 3 severe obesity due t o excess calories with serious comorbidity and body mass index (BMI) of 45.0 to 49.9 in adult 05/14/2022 Assessment & Plan (12/27/2024 3:14 PM EDT): - BMI in the range of 45.0-49.9, severe obesity. - Dietary counseling and exercise counseling provided. Advised to reduce intake of rice and salt, use alternative seasonings such as Dash, garlic, onion, oregano, and cilantro. Severe persistent asthma 05/14/2022 Assessment & Plan (12/27/2024 3:12 PM EDT): - Continue asthma management and follow-up with pulmonology. Assessment & Plan (09/17/2023 12:29 PM EDT): Continue to follow by pulmonology Assessment & Plan (03/27/2023 2:30 PM EST): C/w svp programmatic tv and same medication regimen I will prescribe [...] medications accordingly Patient already refer to nephrology Acute nontraumatic kidney injury 07/05/2020 Type 2 diabetes mellitus wit h diabetic neuropathy, with long-term current use of insulin 01/19/2018 Assessment & Plan (12/27/2024 3:11 PM EDT): Diabetes management ongoing with endocrinology. Difficulty with insulin pump noted. Diabetic neuropathy present. - Continue follow-up with boot turner. Ordered laboratory tests for cholesterol and urinalysis for diabetes monitoring. Assessment & Plan (01/04/2024 4:33 PM EDT): [...] (congestive) heart failure 01/07 Assessment & Plan (12/27/2024 3:14 PM EDT): - Chronic systolic heart failure with reduced cardiac function. ICD device in place. Diuretic therapy ongoing. - Continue follow-up with circulation crew leader for heart failure management and medication optimization. Ordered laboratory tests for cholesterol. Discussed need to avoid excess salt and monitor fluid intake. 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 ([facility]) Osteomyelitis, unspecified 01/19/2018 Incoordination 01/19/2018 Sepsis ([facility]) 01/19/2018 Chronic congestive heart failure 01/19/2018 Difficulty walking 01/19/2018 Assessment & Plan (12/27/2024 3:12 PM EDT): Prescription for scooter evaluation will be generated Postoperative care for cataract 01/19/2018 Hyperlipidemia 01/19/2018 Resolved Problems Problem Noted Date Diagnosed Date Resolved Date NSVT (nonsustained ventricul ar tachycardia) ([facility]/HCC) 12/26/2024 12/27/2024 Acute on chronic systolic heart failure 12/26/2024 12/27/2024 Non-pressure chronic ulcer o f other part of right lower leg with fat layer exposed 12/21/2024 1 Type 2 diabetes mellitus wit h other skin ulcer (CODE) 12/21/2024 12/27/2024 Paroxysmal atrial flutter ([facility]/HCC) 04/01/2024 12/27/2024 Paroxysmal atrial fibrillation ([facility]/HCC) 05/22/2023 12/27/2024 Acute on chronic combined sy stolic and diastolic heart failure 05/14/2022 12/27/2024 Encounters Date Type Department Care Team Description 12/27/2024 2:00 PM EDT Office Visit [facility] [address] [place] [phone] Linh Cook MD Primary localized osteoarthritis of knees, bilateral (Primary [...] failure (HCC); Difficulty walking; Encounter for immunization 12/27/2024 Orders Only GENERIC EXTERNAL DATA DEPARTMENT Provider, Generic External Data 12/27/2024 Travel 12/26/2024 Telephone [facility] [address] [place] [phone] Linh Cook MD Chart Prep 12/12/2024 Patient Outreach [address] [address] Linh Cook MD Transition Of Care (Tcm) (HDF- scheduled and SDOH screening negative and Tobacco screening negative) 12/06/2024 Orders Only GENERIC EXTERNAL DATA DEPARTMENT Provider, Generic External Data 12/05/[address] [phone] Linh Cook MD Appointment Request 12/02/[address] [address] Linh Cook MD Nurse Triage 11/28/2024 9:30 AM EDT Telemedicine [facility] [address] [place] [address] Medina Bo RN Peripheral vascular disease ([facility]) [I73.9] 11/28/2024 Travel 11/21/[address] [phone] Linh Cook MD Durable Medical Equipment ([facility] [employer]: Multiple DME items) 10/28/[address] [address] Linh Cook MD Call back request 10/26/[address] [address] Linh Cook MD Verbal Order 10/26/2024 Orders Only GENERIC EXTERNAL DATA DEPARTMENT Provider, Generic External Data 10/25/[address] [address] Linh Cook MD Verbal Order 10/24/[address] [address] Linh Cook MD FYI 10/21/[address] [address] Linh Cook MD Medication Question 10/19/[address] [address] Linh Cook MD Durable Medical Equipment ([facility] DME: Heavy Duty Transfer Shower Chair) 10/19/[address] [address] Linh Cook MD verbal orders needed 10/17/2024 Telephone [facility] [address] [place] [phone] Linh Cook MD Glucose Monitor 10/14/2024 1:30 PM EDT Office Visit [address] [address] Ketan AngelaDAVON Decreased renal function (Primary Dx); Chronic pain of both knees; Hospital discharge follow-up 10/14/2024 Travel 10/13/2024 Telephone [facility] [address] [place] [phone] Jimena Fan MA CHARTPREP 10/11/2024 Telephone [facility] [address] [place] [phone] Elisha Bethea, PharmD 10/04/[address] [address] Linh Cook MD HDF apppointment 10/03/2024 Refill [facility] [address] [place] [phone] Linh Cook MD Diabetic polyneuropathy associated with type 2 diabetes mellitus ([facility]) 10/03/[address] [address] Linh Cook MD APPT CHANGE 09/30/2024 Telephone [facility] [address] [place] [phone] Linh Cook MD [facility] outreach from Last 3 Months Immunizations Immunization Administration Dates Next Due Hep B, adult 11/04/2021,08/07/2021,07/03/2021 INFLUENZA INJECTABLE QUADRIV ALANT CCIIV4 MDCK Multi-dose vial 12/17/2021 Influenza Injectable Quadriv alant Preservative Free IIV4 MDCK 01/03/2018 Influenza Quadrivalent Adjuvanted 12/02/2022 Influenza injectable quadriv alent IIV4 with preservative 11/04/2019 Influenza injectable quadriv alent preservative free 12/06/2016 Influenza, High Dose Seasona l, Preservative Free 12/27/2024 Influenza, IIV3, injectable 11/16/2023,0 12/02/2022,12/30/2017,12/10 Influenza, injectable, quadr ivalent, preservative free, pediatric 11/04/2019 Moderna Covid-19 Vaccine 12+ 02/07/2021,05/04/19 21,04/01/2020 Pneumococcal Conjugate PCV 13 12/30/2017 Pneumococcal Conjugate PCV 20 03/27/2023 Pneumococcal Polysaccharide PPSV23 09/29/2013 RSV Adjuvant 03/31/2023 Tdap 02/07/2021 Zoster, Recombinant 11/16/2023 Social History Tobacco Use Types Packs/Day Years [...] Mass Index 45.47 12/27/2024 1:56 PM EDT Plan of Treatment Upcoming Encounters Date Type Department Care Team (Late st Contact Info) Description 02/15/2025 10:45 AM EST Office Visit [facility] [address] [place] [address] Linh Cook MD [address] [place] [address] Health Maintenance Due Date Last Done Comments CT Colonography 1958 FIT DNA/Cologuard 1958 FIT 1958 FOBT 1960 Sigmoidoscopy 1958 Diabetes: Foot Exam 01/18/1968 Eye Exam 01/18/1968 Hepatitis A Vaccines (1 of 2 - Risk 2-dose series) 1977 Colonoscopy 01/07/2023 Colorectal Cancer Screening 01/07/2023 Zoster Vaccines (2 of 2) 01/11/2024 11/16/2023 Diabetes: Urine Protein Screening 10/04/2024 12/27/2024, 10/05/2023, 10/01/2022, Additional history exists Lipid Panel 10/04/2024 12/27/2024, 12/08, 10/05/2023, Additional history exists COVID-19 Vaccine ( season) 2024 11/26/2023, 12/17/2021, 07/03/2021, Additional history exists Diabetes: Hemoglobin A1C 03/29/2025 025, 09/13/2024, 01/04/2024, Additional history exists Depression Monitoring 04/16/2025 10/14/2024, 025 Alcohol/Substance Use Screening 10/14/2025 10/14/2024 Tobacco Screening 10/14/2025 10/14/2024 SDOH Screening 12/12/2025 12/12/2024 DTaP/Tdap/Td Vaccines (2 - Td or Tdap) 02/07/2031 02/07/2021 Hepatitis B Vaccines Completed 11/04/2021, 08/07/2021, 07/03/2021 Pneumococcal Vaccine: 50+ Years Completed 03/27/2023, 12/30/2017, 09/29/2013 RSV Patients and Patients Aged 60 years or older Completed 03/31/2023 Influenza Vaccine Completed 12/27/2024, , 12/02/2022, Additional history exists HIB Vaccines Aged Out No longer eligi [...] patient's age to complete this topic RSV under 20 months Aged Out No longe r eligible based on patient's age to complete this topic Rotavirus Vaccines Aged Out No longer eligible based on patient's age to complete this topic Procedures Procedure Name Priority Date/Time Associated Diagnosis Comments LIPID PANEL, STANDARD Routine 12/27/2024 3:29 PM EDT ALBUMIN, RANDOM URINE W/CREATININE Routine 12/27/2024 3:29 PM EDT Type 2 diabetes mellitus with diabetic neuropathy, with long-term current use of insulin (HCC) LIPID PANEL, STANDARD Routine 12/27/2024 3:29 PM EDT Type 2 diabetes mellitus with diabetic neuropathy, with long-term current use of insulin (HCC) BASIC METABOLIC PANEL Routine 12/27/2024 3:29 PM EDT Decreased renal function POCT GLYCATED HEMOGLOBIN, TOTAL Routine 12/27/2024 1:58 PM EDT Type 2 diabetes mellitus with diabetic neuropathy, with long-term current use of insulin (HCC) POCT GLUCOSE Routine 12/27/2024 1:58 PM EDT Type 2 diabetes mellitus with diabetic neuropathy, with long-term current use of insulin ([facility]) AMB REFERRAL TO ORTHOPAEDIC SURGERY Routine 12/13/2024 Chronic pain of both knees GLUCOSE, WHOLE BLOOD Routine 12/06/2024 2:26 PM EDT GLUCOSE, WHOLE BLOOD Routine 10/26/2024 1:23 PM EDT from Last 3 Months Results * Albumin, Random Urine W/Creatinine (12/27/2024 3:29 PM EDT) Creatinine, Urine 25.62 mg/dL [facility] Microalbumin Urine <5.0 mg/L [facility] Microalbum Creatinine Ratio Ur TNP <30 ug/mg cr [facility] Comment:Unable to calculate albumin/creatinine ratio due to lowmicroalbumin or creatinine result. Urine (Urine, Random) 12/27/2024 3:29 PM EDT 12/27/2024 4:02 PM EDT us Linh Ramos MD LAB URINE ORDERABLES Final Result [facility] [address] [place] [phone] * (ABNORMAL) Lipid Panel, Standard (12/27/2024 3:29 PM EDT) Only the most recent of2 resultswithin the time period is included. Triglycerides 294(H) <150 mg/dL [facility] Comment:Desirable Triglyceri de: less than 150 mg/dLBorderline High Triglyceride 150-199 mg/dLHigh Triglyceride: 200-499 mg/dLVery High Triglyceride: greater than or equal to 5OO mg/dL Cholesterol 237(H) <200 mg/dL [facility] Comment:Desirable Cholestero l: less than 200 mg/dLBorderline High Cholesterol: 200-239 mg/dLHigh Cholesterol: greater than 239 mg/dL LDL Cholesterol Calculated 137(H) <100 mg/dL [facility] Comment:Desirable LDL: less than 100 mg/dLNear Optimal/Above Optimal LDL: 110- 129 mg/dLBorderline High LDL: 130-159 mg/dLHigh LDL: 160-189 mg/dLVery High LDL: greater than or equal to 190 mg/dL HDL Cholesterol 42 >40 mg/dL [facility] Comment:Desirable HDL: great er than 40 mg/dL Note: This HDL assay may give artificially low results in patients with liver disease. 12/27/2024 3:29 PM EDT 12/27/2024 5:03 PM EDT us Generic External Data Provider LAB BLOOD ORDERAB LES Final Result [facility] [address] [place], [place] [phone] * (ABNORMAL) Basic Metabolic Panel (12/27/2024 3:29 PM EDT) Sodium 138 135 - 145 mmol/L [facility] Potassium 3.8 3.3 - 5.1 mmol/L [facility] Chloride 99 96 - 108 mmol/L [facility] Carbon Dioxide 29 22 - 29 mmol/L [facility] Anion Gap 14 12 - 20 [facility] Urea Nitrogen (BUN) 65(H) 9 - 16 mg/dL [facility] Creatinine, Serum 1.46(H) 0.5 - 1.4 mg/dL [facility] Estimated Glomerular Filt Rate 48 [facility] Comment:Chronic Kidney Disea se: Estimated GFR < 60 mL/min/1.81d3Nffkkx Kidney Disease: Estimated GFR < 15 mL/min/1.73m2 Glucose 209(H) 60 - 115 mg/dL [facility] Calcium 9.2 8.4 - 10.2 mg/dL [facility] Blood Venous blood specimen / Unknown 12/27/2024 3:29 PM EDT 12/27/2024 5:03 PM EDT Result [facility] LAB BLOOD ORDERABLES Helena l Result [facility] [address] [place] [phone] * (ABNORMAL) POCT Hgb A1c (12/27/2024 1:58 PM EDT) Hemoglobin A1C 9.9(A) 4.0 - 5.7 % QC Media Lot # [id number] Lot# Expiration Date 51,227 Blood 12/27/2024 1:[address] [facility] Linh Ramos MD POINT OF CARE TEST EN TER/EDIT ORDERABLES Final Result * (ABNORMAL) POCT Glucose (12/27/2024 1:58 PM EDT) Glucose Blood, POC 339(A) 60 - 200 mg/dL QC Media Lot # [id number] Lot# Expiration Date 31,126 Blood Capillary blood specimen / Unknown 12/27/2024 1:[address] [facility] Linh Ramos MD POINT OF CARE TEST EN TER/EDIT ORDERABLES Final Result * Referral to Orthopaedic Surgery (12/13/2024) Result [facility] OUTPATIENT REFERRAL ORDER TASIA Final Result * (ABNORMAL) Glucose, Whole Blood (12/06/2024 2:26 PM EDT) Only the most recent of2 resultswithin the time period is included. Glucose, Whole Blood 305(H) 60 - 115 mg/dL [facility] Comment:METER #: [id number] Testing performed in the Endocrinology Department [address] , [address], [facility]. 12/06/2024 2:26 PM EDT 12/06/2024 2:31 PM EDT us Generic External Data Provider LAB BLOOD ORDERAB LES Final Result [facility] [address] [place] [address] [phone] from Last 3 Months Insurance [facility] [employer] (HMO D-SNP) [place] [id number] Care Teams Fiberglasser Relationship Specialty Start Date End Date Linh Cook MD [address] [place] [address] PCP - General Family Medicine 06/22/18 [facility] 06/10/23
== END 2024-12-27 15:23 | disposition home or self-care (01) ==
LOC: HO.HHCL 15:22
PROVIDERS: Internal Medicine Endocrinology, Diabetes & Metabolism; PCP Internal Medicine; Visit Provider Internal Medicine
DX: E11.65 Type 2 diabetes mellitus with hyperglycemia (principal); E11.21 Type 2 diabetes mellitus with diabetic nephropathy; E11.40 Type 2 diabetes mellitus with diabetic neuropathy, unspecified; Z79.4 Long term (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 of insulin; N28.9 Disorder of kidney and ureter, unspecified
CPT/HCPCS: 36415; 80048; 80061; 82570

== ENCOUNTER 2025-01-03 13:12 | Outpatient (AMB) | payer OTHER, SELFPAY ==
--- NOTE | 2025-01-03 13:59 | A.OFFVIS_ITS ---
Intake Intake Visit Reasons: 60 mins Allergies lisinopril Adverse Reaction (Intermediate, Verified 12/06/24 14:14) cough HPI Comprehensive Diabetes Asmnt Most Recent Diabetes Results: 2 Microalb/Creat Ratio TNP 12/27/24 Cholesterol, (<200) 239 mg/dL H 12/27/24 HDL Cholesterol, (>40) 43 mg/dL 12/27/24 Triglycerides, (<150) 297 mg/dL H 12/27/24 Creatinine, (0.5-1.4) 1.46 mg/dL H 12/27/24 BUN, (9-16) 65 mg/dL H 12/27/24 Sodium, (135-145) 138 mmol/L 12/27/24 Potassium, (3.3-5.1) 3.8 mmol/L 12/27/24 Chloride, (96-108) 99 mmol/L 12/27/24 Carbon Dioxide, (22-29) 29 mmol/L 12/27/24 Calcium, (8.4-10.2) 9.2 mg/dL 12/27/24 [facility] Medical History (Updated 04/19/24 @ 16:38 by Rosalba De La Torre NP-C) Tubular adenoma Vitamin D deficiency Hypoxia Paroxysmal atrial fibrillation Biventricular ICD (implantable cardioverter-defibrillator) in place Chest pain Congestive heart failure (CHF) Dyslipidemia Morbid obesity 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 Social History Household Members: Friend(s) and Other Household Members Other:: sober living home Housing: House Housing Other:: sober house-rents room Are you a primary critical care clinical nurse specialist to a significant other at home: No Do you presently have visiting nurse or other home services: Yes (WEDDING PLANNER 3x week) Alcohol intake: former Patient Tobacco Use Status: Former Tobacco user Tobacco use type: Cigarette Years Smoked: 40 Substance Use Type: Crack/Cocaine, Former Substance User, Heroin, Marijuana and Prescription Drugs Advance Directives Date on File: 07/05/20 service: No Current occupational status: unemployed Assessment & Plan Assessment & Plan (1) Diabetes type 2, uncontrolled: Code(s): E11.65 - Type 2 diabetes mellitus with hyperglycemia Qualifiers: Glycemic state: with hyperglycemia Qualified Code(s): E11.65 - Type 2 diabetes mellitus with hyperglycemia Plan: Personal Continuous Glucose Monitor: Patients CGM information reviewed, Patient reports he was taking Humulin U 500 80 units 3 times daily, at last visit with Dr. Encarnacion he adjusted Asked for clarification on Dr. Encarnacion's note from 12/06/2024 Encourage patient to make follow up appt with wound clinic, for wound on his R ankle. Pt reports he is trying to lose weight, he is on Mounjaro 7.5 mg. I suggested he see the RD, he agreed. Pt will f/u with DM in 3 weeks. Patient able to insert sensor independently at home without issue.? Portions of this note were created using voice recognition software, please excuse any words or phrases that may have been misinterpreted. Coding Level of Care Code Est Pt Level 1 (18176) Diagnoses Diabetes type 2, uncontrolled E11.65 Glycemic state: with hyperglycemia
--- OUTSIDE RECORDS SUMMARY | 2025-01-03 16:50 | XMS_ITS | Data Portability ---
Author Organization [facility] Address [address] [place] [id number] Care Team Providers Care Dental Treatment Coordinator Name Role Phone Unavailable OTHER HIM CCA OTHER Assessment Encounter Date Assessment Date Assessment LastModified by Organization Details LastModified Time 09/02/2024 09/02/2024 I provided real -time medical direction via phone for this encounter, and was available for additional phone based assistance as needed. I have reviewed and agree with the Assessment and Plan as documented by the Stamping Machine Operator. We discussed the diagnostic uncertainty of home visits and the risk associated with this.. The patient given the opportunity to ask questions. [email or web address] Not available 09/02/2024 15:26:11 Plan of Treatment Reminders Order Date Submit Date Provider Last Modified By Organization Details Last Modified Time Details Appointments None recorde d. Lab glucose , fingers tick, blood 025 09/03/19 25 [email or web address] [facility], [address] [place] [address], [phone] 15:23:46 Referral None recorde d. Procedures None [...] blood Blood Glucose: mg/dl 276 Not Available [address], [phone] 09/02/2024 15:23:32 Result Notes None recorded. Medical Equipment None Reported. Allergies Allergen ID Allergen Name Allergen Category Reaction Reaction Severity Criticality Documentation Date Start Date Code Code System Note Provider Name and Address Organization Details Recorded Time 76931 lisinopri l medicatio n Not available Not available Not available 09/02/2024 28666 RxNorm Not Available [facility] 13:12:20 Medications Name Sig Start Date Stop [...] Address Organization Details Last Updated DateTime 09/02/2024 959933.63 g 42 kg/m2 Debbie Medellin MD [address] [place] [address],[address], [place], [address], [facility] [employer] [facility] 09/02/2024 16:18:01 Date Recorded Heart rate Oxygen saturation Oxygen saturation in Arterial blood by Pulse oximetry Body temperature Respiratory rate Body height Systolic And Diastolic Provider Name and Address Organization Details Last Updated DateTime 74 /min 94 % 94 % 98 [degF] 14 /min 182.88 cm 146/86 mm[Hg] Not Available [facility] 15:11:44 Social History None recorded. Functional Status None recorded. Mental Status None recorded. Family History Nothing Reported. Medical History No medical history recorded. Past Encounters Encounter ID Performer Location Encounter Start Date Encounter Closed Date Diagnosis/Indication Diagnosis SNOMED-CT Code Diagnosis ICD10 Code Diagnosis IMO Codes Diagnosis Note [id number] Debbie Medellin MD [facility] [address] [phone] 09/02/2024 15:11:37 09/03/2024 21:16:40 Pain of left knee joint [id number] 40875 M25.562 [id number] Cannot r/o infection vs gout- d/w patient [...] later. Report called to ED expect at [facility] Concerns Section Related Observation LastModified by Organization Detai ls LastModified Time None Recorded Concern Status LastModified by Organization Details LastModified Time None Recorded Advance Directives Directive None Recorded Payers Insurance Date Sequence Insurance Name Policy Number Policy Womack Covered Member ID Womack Member ID Guarantor Name 09/02/2024 1 [facility] - DOS ON OR AFTER 2022 - DUAL ELIGIBLE - CORRECTION OPTIONS AND ONE CARE (MEDICARE REPLACEMENT/ADV ANTAGE - HMO) Ramiro Miramontes [id number] Ramiro Miramontes Notes Date Note Type Note Provider Name and Address Organization Details Recorded Time 09/02/2024 text/html ROS as noted in the HPI HPI: Patient recently at [facility] 06/06/24-06/30/24 and transferred to [facility] 06/30-08/30. [facility] and [facility] notes attached. Patient currently reporting 10/10 [...] being admitted for approx 1 month at [facility] and 2 months at rehab. Please evaluate [...] at 09/02/2024 - 13:12 Comments: HPI reviewed Stamping Machine Operator Organization Information for Elmer Vera Maryan LUTZJefrybobby Legal Name: [facility] Address: [address] [place] [address], Builder Operator: Patrice ROCKIA No.: [id number] Stamping Machine Operator POC Test Results from [facility] Blood Glucose Measurement (15:07:27) Blood Glucose: 276 mg/dL .................... .................... .................... .................... .................... .................... .................... . Stamping Machine Operator Note From Elmer Vera: Patient alert and [...] is using a urinal. Patient reports no POTATO INSPECTOR services currently engaged. Patient denies any other [...] edema noted. Good CSM in left leg. [facility] advises patient to be transported to hospital, patient agrees. Patient reports he will call 911 in a few hours after attending to personal matters. Patient advised to be transported now, a discussed risks of waiting. Red flags, patient education discussed. [facility] Lab Orders: glucose, fingerstick, blood: Performed .................... .................... .................... .................... .................... .................... .................... . [facility] Consulted: Debbie Medellin .................... .................... .................... .................... .................... .................... .................... . Disposition: Fulfilled SEGMD: Patient was at [facility] for 1 month and then rehab [...] H&H of 12.2/40.9. Debbie Medellin MD [address] [facility],[address], [place], [address], [employer] 09/02/2024 16:22:07
== END 2025-01-03 14:26 | disposition home or self-care (01) ==
LOC: HO.ENCR 13:12
PROVIDERS: PCP Internal Medicine; Visit Provider Registered Nurse Diabetes Educator
DX: E11.65 Type 2 diabetes mellitus with hyperglycemia (principal)

== ENCOUNTER → 2025-01-03 13:12 | Outpatient (BNVA) | payer OTHER, SELFPAY | PROVIDERS: PCP Internal Medicine; Visit Provider Registered Nurse Diabetes Educator | DX: E11.65 Type 2 diabetes mellitus with hyperglycemia (principal) | CPT/HCPCS: 99211 ==

== ENCOUNTER 2025-01-24 15:23 | Outpatient (AMB) | payer OTHER, SELFPAY ==
--- NOTE | 2025-01-24 15:25 | A.OFFVIS_ITS ---
Vital Signs 01/24/25 15:30 Height 5 ft 11 in BP 122/74 Blood Pressure Location Rt brachial Position Sitting Pulse 92 Pulse Source Pulse Oximeter Pulse Oximetry (%) 93 Oxygen Delivery Method Room Air Comment unable to obtain weight Intake Visit Reasons: Asthma Behavior Management Specialist Required: Yes Behavior Management Specialist Name: Sugar Zepeda Khadra Information Interpreted: non-clinical & clinical Allergies lisinopril Adverse Reaction (Intermediate, Verified 01/24/25 15:35) cough HPI HPI Asthma: Details: 65-year-old gentleman with underlying history significant for systolic heart failure with EF of 10-15% on diuretic therapy prior history of cocaine abuse followed for allergic asthma and JANELL.? Patient continues on Xolair and albuterol MDI with excellent control of his asthma symptoms.? He denies recent asthma exacerbations. He has been using CPAP with good control of his underlying sleep apnea symptoms. Now his following up with advanced heart failure otolaryngology surgeon at [facility]. [facility] Medical History (Updated 04/19/24 @ 16:38 by Rosalba De La Torre NP-C) Tubular adenoma Vitamin D deficiency Hypoxia Paroxysmal atrial fibrillation Biventricular ICD (implantable cardioverter-defibrillator) in place Chest pain Congestive heart failure (CHF) Dyslipidemia Morbid obesity Diabetic neuropathy associated with type 2 diabetes mellitus manager intermediate (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 Social History Household Members: Friend(s) and Other Household Members Other:: sober living home Housing: House Housing Other:: sober house-rents room Are you a primary health care / medical job titles to a significant other at home: No Do you presently have visiting nurse or other home services: Yes (LAYBOY OPERATOR 3x week) Alcohol intake: former Patient Tobacco Use Status: Former Tobacco user Tobacco use type: Cigarette Years Smoked: 40 Substance Use Type: Crack/Cocaine, Former Substance User, Heroin, Marijuana and Prescription Drugs Advance Directives Date on File: 07/05/20 service: No Current occupational status: unemployed Review of Systems Const Denies daytime sleepiness, Denies excessive sweating, Denies fatigue, Denies fever(s), Denies lethargy, Denies malaise, Denies night sweats, Denies snoring and Denies weight loss Eyes Denies blurry vision and Denies itchy eyes ENT Denies nasal congestion, Denies post nasal drip, Denies sinus pain, Denies sinus pressure and Denies other ( Thrush) Card Denies chest pain, Reports pedal edema, Denies dyspnea, Reports dyspnea on exertion, Reports orthopnea and Denies paroxysmal nocturnal dyspnea Resp Denies cough, Denies hemoptysis, Denies excessive phlegm production, Denies dyspnea, Reports dyspnea on exertion, Denies snoring and Denies wheezing GI Denies abdominal pain and Denies heartburn Musc Denies myalgias, Denies arthralgias and Denies joint swelling Skin/Breast Denies rash Neuro Denies memory loss and Denies seizure-like activity Psych Denies abnormal sleep pattern, Denies anxiety and Denies memory loss Endo Denies excessive sweating, Denies fatigue and Denies heat intolerance Wander/Lymph Denies easy bruising Aller/Immun Denies itchy eyes, Denies seasonal rhinorrhea and Denies wheezing Physical Exam Vital Signs: Last Vital Signs Pulse 92 01/24/25 15:30 BP 122/74 01/24/25 15:30 Pulse Ox 93 01/24/25 15:30 Oxygen Delivery Method Room Air 01/24/25 15:30 Const General: no acute distress and alert Nutritional Appearance: obese Orientation/consciousness: Other orientation findings ( oriented) HEENT Head: Yes atraumatic Eyes General: appearance normal, both eyes and all related structures Sclerae: sclerae normal EOM: EOMs intact bilaterally Neck Neck: Yes supple Lymphatic: no lymphadenopathy noted Resp Effort & Inspection: normal respiratory effort and no use of accessory muscles Auscultation: clear to auscultation bilaterally Cardio Rate: regular rate Rhythm: regular rhythm Heart sounds: no gallops, no murmurs and no rubs Skin General skin exam: other ( warm) Extrem General: No clubbing, No cyanosis and Yes edema (2+ bilateral) Assessment & Plan Assessment & Plan (1) Severe persistent asthma: Code(s): J45.50 - Severe persistent asthma, uncomplicated Category: Medical Plan: Well controlled on current regimen of Xolair and albuterol MDI. Continue current regimen. (2) JANELL on CPAP: Code(s): G47.33 - Obstructive sleep apnea (adult) (pediatric); Z99.89 - Dependence on other enabling machines and devices Category: Medical Plan: Controlled on CPAP therapy. Continue CPAP therapy. (3) Environmental allergies: Code(s): Z91.09 - Other allergy status, other than to drugs and biological substances Category: Medical Plan: Well controlled on Xolair. Continue current regimen. Coding Level of Care Code Est Pt Level 4 (33600) Complex EM visit Add On G2211 Diagnoses Severe persistent asthma J45.50 JANELL on CPAP G47.33; Z99.89 Environmental allergies Z91.09
[2025-01-24 15:30] VITALS: BP 122/74; PULSE 92; O2SAT 93
== END 2025-01-24 15:54 | disposition home or self-care (01) ==
LOC: HO.HPS 15:24
PROVIDERS: PCP Internal Medicine; Visit Provider Internal Medicine Pulmonary Disease
DX: J45.50 Severe persistent asthma, uncomplicated (principal); G47.33 Obstructive sleep apnea (adult) (pediatric); Z99.89 Dependence on other enabling machines and devices; Z91.09 Other allergy status, other than to drugs and biological substances
CPT/HCPCS: 99214; G2211

== ENCOUNTER → 2025-01-24 15:23 | Outpatient (BNVA) | payer OTHER, SELFPAY | PROVIDERS: PCP Internal Medicine; Visit Provider Internal Medicine Pulmonary Disease | DX: J45.50 Severe persistent asthma, uncomplicated (principal); G47.33 Obstructive sleep apnea (adult) (pediatric); Z99.89 Dependence on other enabling machines and devices; Z79.01 Long term (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 of anticoagulants; Z87.891 Personal history of nicotine dependence; I50.20 Unspecified systolic (congestive) heart failure | CPT/HCPCS: 99212 ==

== ENCOUNTER 2025-01-25 12:55 | Outpatient (AMB) | payer OTHER, SELFPAY ==
[2025-01-25 13:44] LABS: Glucose, Whole Blood 593 mg/dL (60-115)
--- NOTE | 2025-01-25 13:55 | A.OFFVIS_ITS ---
Intake Intake Visit Reasons: 60 Furniture Servicer Required: Yes Furniture Servicer Language: Yoke Presser Services: Furniture Servicer Offered & Declined Accompanied by: Self / Same As Patient Allergies lisinopril Adverse Reaction (Intermediate, Verified 01/24/25 15:35) cough HPI Comprehensive Diabetes Asmnt Most Recent Diabetes Results: 2 Microalb/Creat Ratio TNP 12/27/24 Cholesterol, (<200) 239 mg/dL H 12/27/24 HDL Cholesterol, (>40) 43 mg/dL 12/27/24 Triglycerides, (<150) 297 mg/dL H 12/27/24 Creatinine, (0.5-1.4) 1.46 mg/dL H 12/27/24 BUN, (9-16) 65 mg/dL H 12/27/24 Sodium, (135-145) 138 mmol/L 12/27/24 Potassium, (3.3-5.1) 3.8 mmol/L 12/27/24 Chloride, (96-108) 99 mmol/L 12/27/24 Carbon Dioxide, (22-29) 29 mmol/L 12/27/24 Calcium, (8.4-10.2) 9.2 mg/dL 12/27/24 [facility] Medical History (Updated 04/19/24 @ 16:38 by MAGO DoranC) Tubular adenoma Vitamin D deficiency Hypoxia Paroxysmal atrial fibrillation Biventricular ICD (implantable cardioverter-defibrillator) in place Chest pain Congestive heart failure (CHF) Dyslipidemia Morbid obesity Diabetic neuropathy associated with type 2 diabetes mellitus long term acute care registered nurse (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 Social History Household Members: Friend(s) and Other Household Members Other:: sober living home Housing: House Housing Other:: sober house-rents room Are you a primary career services officer to a significant other at home: No Do you presently have visiting nurse or other home services: Yes (TRIMMER SORTER 3x week) Alcohol intake: former Patient Tobacco Use Status: Former Tobacco user Tobacco use type: Cigarette Years Smoked: 40 Substance Use Type: Crack/Cocaine, Former Substance User, Heroin, Marijuana and Prescription Drugs Advance Directives Date on File: 07/05/20 service: No Current occupational status: unemployed Assessment & Plan Assessment & Plan (1) Diabetes type 2, uncontrolled: Code(s): E11.65 - Type 2 diabetes mellitus with hyperglycemia Qualifiers: Glycemic state: with hyperglycemia Qualified Code(s): E11.65 - Type 2 diabetes mellitus with hyperglycemia Plan: Personal Continuous Glucose Monitor: Patients CGM information reviewed, Pt uses [employer] with [place] Patient at visit today for CGM follow-up Today's visit patient stated that he took 120 units of U 500 insulin this morning, but that was the last visit insulin at home. His sensor read Hi. Fingerstick at today's visit was 593 mg/dL Patient had been put on prednisone taper starting on 01/18/25 for gout flare- up, he had approximately 7 days left on taper. At today's visit discussed with patient the importance of him going to the emergency room to be treated for hyperglycemia, patient concerns that he would not be able to get home from the emergency room, and that he would have to leave his wheelchair behind. Had Dr. Encarnacion speak with patient to emphasize the importance of reducing glucose. Patient is still reluctant after speaking with Dr. Encarnacion, we arrange with ED to set up ride home for patient. Staff member agreed to bring wheelchair over to ED. Patient then agreed to go to ED. 911 was called and patient was transported Patient able to insert sensor independently at home without issue.? Portions of this note were created using voice recognition software, please excuse any words or phrases that may have been misinterpreted. Coding Level of Care Code Est Pt Level 1 (00011) Diagnoses Diabetes type 2, uncontrolled E11.65 Glycemic state: with hyperglycemia Results Reviewed Results Reviewed: Laboratory Last Values Glucose (Clinic) 593 mg/dL (60-115) H* 01/25/25 13:39
--- OUTSIDE RECORDS SUMMARY | 2025-01-26 00:44 | XMS_ITS | Data Portability ---
Author Organization [facility] Address [address] [place] [phone] Care Team Providers Care Program Control Analyst Name Role Phone Unavailable OTHER HIM CCA OTHER Assessment Encounter Date Assessment Date Assessment LastModified by Organization Details LastModified Time 09/02/2024 09/02/2024 I provided real -time medical direction via phone for this encounter, and was available for additional phone based assistance as needed. I have reviewed and agree with the Assessment and Plan as documented by the Hose Builder. We discussed the diagnostic uncertainty of home visits and the risk associated with this.. The patient given the opportunity to ask questions. [email or web address] Not available 09/02/2024 15:26:11 Plan of Treatment Reminders Order Date Submit Date Provider Last Modified By Organization Details Last Modified Time Details Appointments None recorde d. Lab glucose , fingers tick, blood 025 09/03/19 25 [email or web address] [facility], [address] [place] [address], [phone] 15:23:46 Referral None recorde d. Procedures None [...] blood Blood Glucose: mg/dl 276 Not Available [address], [phone] 09/02/2024 15:23:32 Result Notes None recorded. Medical Equipment None Reported. Allergies Allergen ID Allergen Name Allergen Category Reaction Reaction Severity Criticality Documentation Date Start Date Code Code System Note Provider Name and Address Organization Details Recorded Time 47659 lisinopri l medicatio n Not available Not available Not available 09/02/2024 57904 RxNorm Not Available [facility] 13:12:20 Medications Name Sig Start Date Stop [...] Address Organization Details Last Updated DateTime 09/02/2024 629829.63 g 42 kg/m2 Debbie Medellin MD [address] [place] [address],[address], [place], [address], [facility] [employer] [facility] 09/02/2024 16:18:01 Date Recorded Heart rate Oxygen saturation Oxygen saturation in Arterial blood by Pulse oximetry Body temperature Respiratory rate Body height Systolic And Diastolic Provider Name and Address Organization Details Last Updated DateTime 74 /min 94 % 94 % 98 [degF] 14 /min 182.88 cm 146/86 mm[Hg] Not Available [facility] 15:11:44 Social History None recorded. Functional Status None recorded. Mental Status None recorded. Family History Nothing Reported. Medical History No medical history recorded. Past Encounters Encounter ID Performer Location Encounter Start Date Encounter Closed Date Diagnosis/Indication Diagnosis SNOMED-CT Code Diagnosis ICD10 Code Diagnosis IMO Codes Diagnosis Note [id number] Debbie Medellin MD [facility] [address] [phone] 09/02/2024 15:11:37 09/03/2024 21:16:40 Pain of left knee joint 4564951583 57278 M25.562 [id number] Cannot r/o infection vs gout- d/w patient [...] later. Report called to ED expect at [facility] Concerns Section Related Observation LastModified by Organization Detai ls LastModified Time None Recorded Concern Status LastModified by Organization Details LastModified Time None Recorded Advance Directives Directive None Recorded Payers Insurance Date Sequence Insurance Name Policy Number Policy Womack Covered Member ID Womack Member ID Guarantor Name 09/02/[address] [facility] - DOS ON OR AFTER 2022 - DUAL ELIGIBLE - LONG-TERM OPTIONS AND ONE CARE (MEDICARE REPLACEMENT/ADV ANTAGE - HMO) Ramiro Miramontes [id number] Ramiro Miramontes Notes Date Note Type Note Provider Name and Address Organization Details Recorded Time 09/02/2024 text/html ROS as noted in the HPI HPI: Patient recently at [facility] 06/06/24-06/30/24 and transferred to [facility] 06/30-08/30. [facility] and [facility] notes attached. Patient currently reporting 10/10 [...] being admitted for approx 1 month at [facility] and 2 months at rehab. Please evaluate [...] at 09/02/2024 - 13:12 Comments: HPI reviewed Hose Builder Organization Information for Elmer Vera Maryan LUTZJefrybobby Legal Name: [facility] Address: [address] [place] [address], Explosives Mixer Operator: Patrice ROCKIA No.: [id number] Hose Builder POC Test Results from [facility] Blood Glucose Measurement (15:07:27) Blood Glucose: 276 mg/dL .................... .................... .................... .................... .................... .................... .................... . Hose Builder Note From Elmer Vera: Patient alert and [...] is using a urinal. Patient reports no PRODUCT DIRECTOR services currently engaged. Patient denies any other [...] edema noted. Good CSM in left leg. [facility] advises patient to be transported to hospital, patient agrees. Patient reports he will call 911 in a few hours after attending to personal matters. Patient advised to be transported now, a discussed risks of waiting. Red flags, patient education discussed. [facility] [place] [place] Lab Orders: glucose, fingerstick, blood: Performed .................... .................... .................... .................... .................... .................... .................... . [facility] Consulted: Debbie Medellin .................... .................... .................... .................... .................... .................... .................... . Disposition: Fulfilled SEGMD: Patient was at [facility] for 1 month and then rehab [...] H&H of 12.2/40.9. Debbie Medellin MD [address] [facility],[address], [place], [address], [employer] 09/02/2024 16:22:07
--- OUTSIDE RECORDS SUMMARY | 2025-01-26 00:44 | XMS_ITS | Continuity of Care Document ---
Author Name Luis Reyez Address [address] [place] [id number] Organization Unknown Address [address] [place] [address] Medications No known medications Problems No known problems
== END 2025-01-25 14:23 | disposition home or self-care (01) ==
LOC: HO.ENCR 12:56
PROVIDERS: PCP Internal Medicine; Visit Provider Registered Nurse Diabetes Educator
DX: E11.65 Type 2 diabetes mellitus with hyperglycemia (principal)

== ENCOUNTER → 2025-01-25 12:55 | Outpatient (BNVA) | payer OTHER, SELFPAY | PROVIDERS: PCP Internal Medicine; Visit Provider Registered Nurse Diabetes Educator | DX: E11.65 Type 2 diabetes mellitus with hyperglycemia (principal); Z79.4 Long term (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 of insulin | CPT/HCPCS: 82947; 99211 ==